=== PATIENT | female | born 1965 | race Caucasian/White ===

== ENCOUNTER 2021-09-29 | Emergency (ER) | payer BC, SELFPAY ==
[2021-09-29] VITALS (7 sets, daily range): BP systolic 116–147; BP diastolic 66–120; PULSE 58–79; RESP 16–20; TEMP 36.4; O2SAT 96–98; BMI 33.5
--- NOTE | 2021-09-29 00:43 | CRLHL7_ITS ---
For Patients: As a result of the Century Cures Act, medical imaging exams and procedure reports are released immediately into your electronic medical record. You may view this report before your referring provider. If you have questions, please contact your health care provider. INDICATION: Chest pain TECHNIQUE: Chest 2 views. COMPARISON: None FINDINGS: Cardiovascular and mediastinum: Heart size and vasculature are normal in caliber and appearance. Mediastinum is within normal limits. Lungs and pleural spaces: Lungs are clear. No sign of infiltrate or mass. No sign of pleural effusion. No pneumothorax. Bones and soft tissues: No significant findings. IMPRESSION: No sign of acute disease. Dictated by Jina Bower MD @ 09/29/2021 2:10:33 AM (Electronically Signed)
--- NOTE | 2021-09-29 00:48 | ED_ITS ---
HPI - Chest Pain General Chief Complaint: Chest Pain Stated Complaint: Chest Pain Time Seen by Provider: 09/29/21 00:26 Source: patient Mode of arrival: ambulatory Limitations: no limitations History of Present Illness HPI narrative: Dense with significant other with chest pain and dizziness that started approximately 2 hours prior to arrival. Pain is dull, achy and intermittent. It is accompanied by a feeling of rapid heart rate. She has a known history of frequent PVCs has had multiple Holter monitors performed in the past as well as stress echo. Her last Holter monitor shows that she had multiple PVCs but also runs of supraventricular tachycardia. She states that her speech assistant has previously prescribed sotalol to help with the PVCs and rapid heart rate but she did not tolerate this due to depression. She states that she was then prescribed a different medication which caused prolonging of something, I assume that this was long QT. she does take nortriptyline and quetiapine and therefore would be at risk of this condition. She speech assistant has ultimately decided to pursue an ablation. She was working towards this when she started having increased pulmonary symptoms. The pulmonology workup led to a bronchoscopy a few days ago which ultimately showed sarcoidosis. She is scheduled to start prednisone for the sarcoidosis soon and the speech assistant has recommended that they hold off on the ablation until they can be sure that there is not cardiac sarcoidosis as well. She states that they have recommended that she have a cardiac MRI but is still waiting on the date of scheduling this as she only found out about the sarcoidosis yesterday. There is no syncope. There is no dyspnea today. She does have asthma and is on Dulera for this. Has not been using her rescue inhaler today. Been breathless spells intermittently for the past 3 years so this is not new for her. She states that her last stress test was just last year and was reported that this was normal. [place] and she cannot pull those records up for me today. She states that tonight has not been out of character for her. Her chest pain started when she was at rest watching TV. The COVID booster earlier today and had 1 vodka popsicle tonight. Denies any other substance ingestion, no other recent changes to her medications. She does not feel like there were any complications from the [facility] hoscopy and she is not having any hemoptysis. She states that her past medical history is notable for headaches, frequent PVCs, mitral valve regurgitation, asthma and depression. Her surgical history is notable for cholecystectomy and prior tennis elbow surgery. She states she has 2 drinks per week and is a former smoker. No other pertinent travel. ROS is notable for the generalized and cardiac symptoms as above, otherwise denies times 12 systems. Related Data Home Medications Medication Instructions Recorded Confirmed mometasone-formoterol HFA 50 mcg-5 2 inh inhalation BID 09/29/21 09/29/21 mcg/actuation aerosol inhaler (Dulera) nortriptyline 10 mg capsule 20 mg PO DAILY 09/29/21 09/29/21 quetiapine 25 mg tablet 25 mg PO DAILY 09/29/21 09/29/21 Allergies Allergy/AdvReac Type Severity Reaction Status Date / Time Sulfa (Sulfonamide Allergy Nausea Verified 09/29/21 00:22 Antibiotics) [facility] Social History Smoking Status: Never smoker Do you use any of these nicotine containing products: None Second hand tobacco smoke exposure: No How often do you have a drink containing alcohol: never How often do you have six or more drinks on one occasion: Never AUDIT-C Alcohol total score: 0 Non-prescribed substance use: denies use Exam Const Vital Signs, click to edit/add: Vital Signs - 24 hr 09/29/21 00:13 Temperature 97.6 F Pulse Rate [Left Pulse Oximeter] 79 Respiratory Rate 20 Blood Pressure [Left Upper Arm] 141/94 H Pulse Oximetry 96 Oxygen Delivery Method Room Air Documenting provider has reviewed patient's vital signs: yes Common normals: no apparent distress General appearance: cooperative [facility] Common normals: normocephalic Head and scalp: normocephalic Mouth: oral and palatal mucosa normal Throat: posterior oropharynx normal Eye Common normals: PERRL and conjunctivae normal General eye: normal appearance of both eyes Conjunctiva: conjunctiva(e) normal Pupil: PERRL Neck & C-Spine Common normals: full ROM, no lymphadenopathy and thyroid normal Thyroid: thyroid normal Resp Common normals: normal respiratory effort Effort & inspection: able to speak in complete sentences Other: Mild expiratory wheeze with faint crackle in the right base posteriorly only. Cardio Common normals: regular rate and regular rhythm Rate: regular rate Rhythm: regular rhythm Other: My auscultation. In triage she did have a run of SVT which we were not able to catch on EKG, only lasting a few seconds. We did catch it on a rhythm strip. She does have a mid systolic click consistent with known history of mitral valve regurgitation GI Common normals: Normal to inspection, nondistended, normoactive bowel sounds present and no hepatosplenomegaly Palpation: no hepatosplenomegaly Extremity Common normals: no pedal edema Neuro Motor exam: no tremor noted and no movement abnormalities noted Psych Attitude: calm and engaged Activity/motor behavior: appropriate eye contact Insight: insight good Judgement: judgment good Skin Common normals: no rashes or lesions noted General skin exam: no rashes or lesions noted Course Course Hospital Course: EKG performed, per my interpretation, frequent PVCs. Rhythm strip did clearly show SVT but we did not catch this on the 12 lead. There are no ischemic changes or ST abnormalities. Counseled patient on my findings. Recommended studies as ordered below. Trial of diltiazem to see if this reduces her symptoms. Chest x-ray to ensure that there were no complications from the bronchoscopy. Differential diagnosis including acute coronary syndrome, arrhythmia, pneumothorax, heart failure, pneumonia, toxic ingestion. Seeing as we were able to catch the SVT episode which did correlate with the dizziness he was describing, I suspect that SVT is the etiology of her symptoms. Reevaluation(s) Reevaluation #1: Patient informed of findings. Per my interpretation, the chest x-ray has a bit of fluid in the horizontal fissures but is not appreciated by the radiology team. Certainly no infiltrates or signs of acute congestive heart failure. Laboratory studies are thoroughly reviewed. Mildly low potassium noted which is not thought to be the cause of her symptoms but is replaced with 40 mEq of oral potassium none the less. Her heart rate has improved markedly with the diltiazem and her symptoms have abated. We discuss using the diltiazem p.r.n. for increased dizziness and supraventricular tachycardia. This up to 4 times daily. If we find that she is needing this most days, then I would recommend she start the extended release version. She should make a followup with her primary care provider in 1 week discuss the possibility of doing this if needed. Alarm symptoms to come back to the emergency department reviewed, please see discharge instructions. Repeat troponin is again negative also. Vital Signs Vital signs: Initial Vital Signs Temperature 97.6 F 09/29/21 00:13 Temperature Source Temporal Artery Scan 09/29/21 00:13 Pulse Rate 79 09/29/21 00:13 Respiratory Rate 20 09/29/21 00:13 Blood Pressure 141/94 H 09/29/21 00:13 Blood Pressure Mean 109 09/29/21 00:13 Blood Pressure Position Supine 09/29/21 00:13 Pulse Oximetry 96 09/29/21 00:13 Oxygen Delivery Method 09/29/21 00:13 Vital Signs Temperature 97.6 F 09/29/21 00:13 Pulse Rate 79 09/29/21 00:13 Respiratory Rate 20 09/29/21 00:13 Blood Pressure 141/94 H 09/29/21 00:13 Pulse Oximetry 96 09/29/21 00:13 Oxygen Delivery Method 09/29/21 00:13 Temperature 97.6 F 09/29/21 00:13 Pulse Rate 79 09/29/21 00:13 Respiratory Rate 20 09/29/21 00:13 Blood Pressure 141/94 H 09/29/21 00:13 Pulse Oximetry 96 09/29/21 00:13 Oxygen Delivery Method 09/29/21 00:13 MDM - Chest Pain Lab Data Labs: Lab Results 09/29/21 09/29/21 09/29/21 Range/Units 00:35 00:35 00:35 WBC 8.19 (4.50-11.00) K/uL RBC 4.77 (4.00-5.20) m/uL Hgb 12.9 (12.0-16.0) gm/dL Hct 39.6 (33.0-51.0) % MCV 83 (80-100) fL MCH 27 (26-34) pg MCHC 33 (32-36) gm/dL RDW Coeff of Cordelia 14.6 (11.5-15.5) % Plt Count 195 (140-440) K/uL Neut % (Auto) 78.0 H (42.0-72.0) % Lymph % (Auto) 8.1 L (20-44) % [place] % (Auto) 11.1 H (0.0-11.0) % Eos % (Auto) 2.1 (0.0-7.0) % Baso % (Auto) 0.2 (0.0-3.0) % Neut # (Auto) 6.40 (1.7-7.0) K/uL Lymph # (Auto) 0.70 L (0.90-2.90) K/uL [place] # (Auto) 0.90 (0.00-0.90) K/UL Eos # (Auto) 0.17 (0.00-0.50) K/uL Baso # (Auto) 0.02 (0.00-0.30) K/uL Abs Immat Gran (auto) 0.04 (0.00-0.30) K/uL Sodium 141 (135-149) mmol/L Potassium 3.3 L (3.6-5.1) mmol/L Chloride 107 (96-114) mmol/L Carbon Dioxide 28 (20-32) mmol/L BUN 17 (7-30) mg/dL Creatinine 0.9 (0.5-1.5) mg/dL Estimated Creat Clear 68.73 Estimated GFR 74 ml/min Glucose 100 (60-115) mg/dL Calcium 9.0 (8.4-10.6) mg/dL NT-Pro-B Natriuret Pep 275 H (0-125) PG/mL TSH 2.520 (0.270-4.20) uIU/mL POC Troponin I (0.01-0.04) ng/ml 09/29/21 09/29/21 Range/Units 00:42 02:10 WBC (4.50-11.00) K/uL RBC (4.00-5.20) m/uL Hgb (12.0-16.0) gm/dL Hct (33.0-51.0) % MCV (80-100) fL MCH (26-34) pg MCHC (32-36) gm/dL RDW Coeff of Cordelia (11.5-15.5) % Plt Count (140-440) K/uL Neut % (Auto) (42.0-72.0) % Lymph % (Auto) (20-44) % [place] % (Auto) (0.0-11.0) % Eos % (Auto) (0.0-7.0) % Baso % (Auto) (0.0-3.0) % Neut # (Auto) (1.7-7.0) K/uL Lymph # (Auto) (0.90-2.90) K/uL [place] # (Auto) (0.00-0.90) K/UL Eos # (Auto) (0.00-0.50) K/uL Baso # (Auto) (0.00-0.30) K/uL Abs Immat Gran (auto) (0.00-0.30) K/uL Sodium (135-149) mmol/L Potassium (3.6-5.1) mmol/L Chloride (96-114) mmol/L Carbon Dioxide (20-32) mmol/L BUN (7-30) mg/dL Creatinine (0.5-1.5) mg/dL Estimated Creat Clear Estimated GFR ml/min Glucose (60-115) mg/dL Calcium (8.4-10.6) mg/dL NT-Pro-B Natriuret Pep (0-125) PG/mL TSH (0.270-4.20) uIU/mL POC Troponin I 0.00 L 0.00 L (0.01-0.04) ng/ml Discharge Plan Discharge Clinical Impression: Nonsustained paroxysmal supraventricular tachycardia Patient Disposition: Home w/ Parent or Adult Condition: Improved Instructions: Supraventricular Tachycardia (ED) Additional Instructions: As we discussed, the episodes that you are having causing your dizziness are an arrhythmia known as supraventricular tachycardia. This is the same brief but abnormal rhythm that was seen on your Holter monitor report as well. Your given a medication called diltiazem, a calcium channel anita that can slow her heart rate slightly. Her episodes here in the emergency department. I know that you and your speech assistant have an extensive plan for long-term management of this co ndition and ultimately, ablation is best. 0 that the new diagnosis of sarcoidosis is going to set back that progress somewhat. In the interim, I have given you a prescription for the diltiazem to use every 6 hours as needed for rapid heart rate. If we find that you are needing this often, meaning every day or especially several times per day. Would recommend your primary care provider start you on a low-dose of an extended release version of this medication. I would like for you to follow-up with her next week to see how things are going, determine how many of the spells you have had and if anything further needs to be done. Please also update your speech assistant on the findings today. Have sustained supraventricular tachycardia, meaning for more than 30 minutes that is not improving with Valsalva maneuvers, come back to the emergency department. Your potassium was also very mildly low at 3.3 today and I would recommend that your primary care provider repeat this at your follow-up visit. Try to eat a banana or potato every day in the interim to help with your potassium. No other changes to your medications. Activity Level: Activity as Tolerated Discharge Diet: Regular Prescriptions: No Action nortriptyline 10 mg capsule 20 mg PO DAILY quetiapine 25 mg tablet 25 mg PO DAILY Dulera 50-5 mcg/actuation HFA aerosol inhaler 2 inh inhalation BID Stand Alone Forms: [place] Info Instructions
[2021-09-29 00:51] LABS: Basophils Absolute Auto 0.02 K/uL (0.00-0.30); Basophils Percent Auto 0.2 % (0.0-3.0); Eosinophils Absolute Auto 0.17 K/uL (0.00-0.50); Eosinophils Percent Auto 2.1 % (0.0-7.0); Hematocrit 39.6 % (33.0-51.0); Hemoglobin* 12.9 gm/dL (12.0-16.0); Immature Granulocytes Abs Auto 0.04 K/uL (0.00-0.30); Lymphocytes Percent Auto 8.1 % (20-44); Mean Corpuscular HGB Conc 33 gm/dL (32-36); Mean Corpuscular Hemoglobin 27 pg (26-34); Mean Corpuscular Volume 83 fL (80-100); Monocytes Percent Auto 11.1 % (0.0-11.0); Platelet Count* 195 K/uL (140-440); RDW Coefficient of Variation % 14.6 % (11.5-15.5); Red Blood Count 4.77 m/uL (4.00-5.20); White Blood Count* 8.19 K/uL (4.50-11.00)
[2021-09-29 00:52] LABS: Slide Review Reflex No
[2021-09-29] MEDS: dilTIAZem 30 MG TABLET PO (01:04)
[2021-09-29] MEDS: ASPIRIN 81 MG TAB.CHEW 162 MG PO (01:04)
[2021-09-29 01:21] LABS: Chloride* 107 mmol/L (96-114); Sodium* 141 mmol/L (135-149)
[2021-09-29 01:22] LABS: Potassium* 3.3 mmol/L (3.6-5.1)
[2021-09-29 01:24] LABS: Creatinine* 0.9 mg/dL (0.5-1.5); Est. Creatinine Clearance* 68.73; Estimated Glomerular Filt Rate 74 ml/min
[2021-09-29 01:25] LABS: Blood Urea Nitrogen* 17 mg/dL (7-30); Carbon Dioxide* 28 mmol/L (20-32); Glucose* 100 mg/dL (60-115)
[2021-09-29 01:34] LABS: NT Pro B Type NatriureticPept* 275 PG/mL (0-125)
[2021-09-29] MEDS: POTASSIUM CHLORIDE 10 MEQ CAPSULE ER 40 MEQ PO (01:59)
--- NOTE | 2021-09-29 02:32 | ED.NURSE ---
second trop 0.00
--- NOTE | 2021-09-29 03:24 | ED.NURSE ---
two trops done, both 0.00
== END 2021-09-29 03:00 | disposition home or self-care (01) ==
PROVIDERS: Emergency Provider Family Medicine; PCP Physician Assistant Medical
DX: I47.1 Supraventricular tachycardia (principal)
CPT/HCPCS: 36415; 71046; 80048; 83880; 84443; 84484; 85025; 93005; 99284; 99285; A9270

== ENCOUNTER 2021-11-17 23:24 | Outpatient (CLI) | payer BC, SELFPAY ==
--- OUTSIDE RECORDS SUMMARY | 2021-12-21 12:15 | XMS_ITS | Encounter Summary ---
:1965 Author Organization [facility] Address [address] [place] [address] Care Team Providers Name Role Phone Unavailable Primary Care Provider Unavailable Reason for Referral Outpatient (Routine) - Authorized Specialty Diagnoses / Procedures Referred By Contact Refer red To Contact Diagnoses Sarcoidosis Durga García M.D. [facility] Procedures ECG Heart rhythm monitor (Holter) [address] [place], [place] [address] Referral ID Status Reason Start Date Expiration Date Visits V isits Requested Authorized [id number] Authorized 11/21/2021 11/21/2022 1 1 Reason for Visit Outpatient (Routine) - Authorized Specialty Diagnoses / Procedures Referred By Contact Refer red To Contact Diagnoses Sarcoidosis Durga García M.D. [facility] Procedures ECG Heart rhythm monitor (Holter) [address] [place], [place] [phone] Referral ID Status Reason Start Date Expiration Date Visits V isits Requested Authorized [id number] Authorized 11/21/2021 11/21/2022 1 1 Encounter Details Date Type Department Care Team Description 11/21/2021 Hospital Encounter Department of Durga García M .D. Sarcoidosis Cardiovascular Diseases in [address] [place], [place] [address] [facility] [address] [place] [address] Social History Tobacco Use Types Packs/Day Years Used Date Smoking Tobacco: Former Cigarettes 10 Quit : 2005 Smokeless Tobacco: Never Alcohol Habits Answer Date Recorded How often do you have a drink containing alcohol? 2-4 times a month 11/23/2021 How many drinks containing alcohol do you have on a 1 or 2 11/23/2021 typical day when you are drinking? How often do you have six or more drinks on one Never 11/23/2021 occasion? Social Isolation Answer Date Recorded In a typical week, how many times do you Twice a week 11/23/2021 talk on the phone with family, friends, or neighbors? How often do you get together with friends Once a week 11/23/2021 or relatives? How often do you attend scientologist or lutheran More than 4 time s per year 11/23/2021 services? Do you belong to any clubs or organizations Yes 11/23/2021 such as scientologist groups, unions, fraternal or athletic groups, or school groups? How often do you attend meetings of the More than 4 times pe r year 11/23/2021 clubs or organizations you belong to? Are you now , , , 11/23/2021 , never or living with a partner? Physical Activity Answer Date Recorded On average, how many days per week do you engage in moderate to 1 day 11/23/2021 strenuous exercise (like walking fast, running, jogging, dancing, swimming, biking, or other activities that cause a light or heavy sweat)? On average, how many minutes do you engage in exercise at th is 20 min 11/23/2021 level? Stress Answer Date Recorded Do you feel stress - tense, restless, nervous, or Only a lit tle 11/23/2021 anxious, or unable to sleep at night because your mind is troubled all the time - these days? Financial Resource Strain Answer Date Recorded How hard is it for you to pay for the very basics like Not h david at all 11/23/2021 food, housing, medical care, and heating? Intimate Partner Violence Answer Date Recorded Within the last year, have you been afraid of your partner o r No 11/23/2021 ex-partner? Within the last year, have you been humiliated or emotionall y No 11/23/2021 abused in other ways by your partner or ex-partner? Within the last year, have you been kicked, hit, slapped, or No 11/23/2021 otherwise physically hurt by your partner or ex-partner? Within the last year, have you been raped or forced to have any No 11/23/2021 kind of sexual activity by your partner or ex-partner? Food Insecurity Answer Date Recorded Within the past 12 months, you worried that your food would Never true 11/23/2021 run out before you got money to buy more. Within the past 12 months, the food you bought just didn't N ever true 11/23/2021 last and you didn't have money to get more. Transportation Needs Answer Date Recorded In the past 12 months, has lack of transportation kept you f rom No 11/23/2021 medical appointments or from getting medications? In the past 12 months, has lack of transportation kept you f rom No 11/23/2021 meetings, work, or getting things needed for daily living? Housing Stability Answer Date Recorded In the last 12 months, was there a time when you were not ab le No 11/23/2021 to pay the mortgage or rent on time? In the last 12 months, how many places have you lived? 1 11/23/2021 In the last 12 months, was there a time when you did not hav e a No 11/23/[address] or slept in a correction (including now)? Sex Assigned at Date Recorded Female 11/22/2021 11:24 PM CDT documented as of this encounter Medications at Time of Discharge Medication Sig Dispensed Refills Start Date End Date albuterol 90 mcg/actuation 0 inhaler clobetasoL (TEMOVATE) 0.05 Apply topically. 0 07/2020 % ointment mometasone-formoterol Inhale 2 puffs 2 0 09/10/19 22 (Dulera) 200-5 (two) times a day. mcg/actuation inhaler nortriptyline (PAMELOR) 10 Take 20 mg by mouth. 0 05/22/2021 mg capsule omeprazole (PriLOSEC) 20 mg Take 20 mg by mouth [address] capsule every morning before breakfast. QUEtiapine (SEROquel) 25 mg Take 25 mg by mouth. 0 05/22/2021 tablet documented as of this encounter Plan of Treatment Upcoming Encounters Date Type Specialty Care Team Description 02/15/2022 Comprehensive Visit Cardiovascular Disease Ammon Nolan, JESSIKA, C.N.P. [address] [place] [address] (Wo rk) documented as of this encounter Procedures Procedure Name Priority Date/Time Associated Diagnosis Comme nts HOLTER MONITOR - IN Routine 11/22/2021 1:27 PM Sarcoidosis Re sults for this CLINIC CONTRACTING EXECUTIVE CDT procedure are in the results section. documented in this encounter Results HOLTER MONITOR - IN CLINIC CONTRACTING EXECUTIVE (11/22/2021 1:27 PM CDT) P athologist Signature Min Heart Rate 57 bpm [facility] Max Heart Rate 117 bpm [facility] Mean Heart 80 bpm [facility] Rate VE Total Beats 5611 count [facility] VE Percent 5 percent [facility] Beats SVE Total 1620 count [facility] Beats SVE Percent 2 percent [facility] Beats AF Count 0 count [facility] AF Duration 0 duration [facility] AF Maurice 0 percent [facility] Symptom Count 1 count [facility] Specimen (Source) Anatomical Collection Method Collection Time Re ceived Time Location / / Volume Laterality 11/21/2021 9:00 AM CDT Narrative [facility] - 11/22/2021 3:26 PM CDT 1. The basic rhythm was sinus. Rare junctional escape complexes were seen following ventricular ectop y. The total analyzed time was 21h 41m. The heart rate varied from 57 to 117 bpm. The average HR was 80 bpm. 2. Premature ventricular complexes were seen singly, in pairs and in trigeminal patterns. There were 5611 PVCs recorded with a PVC burden of 5%. 3. Premature supraventricular complexes were seen singly, in pairs, in bigeminal patterns and in three 4-6 beat atrial runs for a maximum heart rate of 156 bpm. There were 1620 PACs recorded with a PAC burden of 2%. 4. A total of 1 symptomatic event was no caty. The rhythm was sinus, heart rate of 94 bpm. ??Single SVPCs and VPCs were noted. Generator Rebuilder: Josy Cano Fellow: Eliu Prather Procedure Note Joey Campos M.D., Ph.D. - 11/23/19 22 1. The basic rhythm was sinus. Rare junc tional escape complexes were seen following ventricular ectopy. The total analyzed time was 21h 41m. The heart rate varied from 57 to 117 bpm. The average HR was 80 bpm. 2. Premature ventricular complexes were seen singly, in pairs and in trigeminal patterns. There were 5611 PVCs recorded with a PVC burden of 5%. 3. Premature supraventricular complexes were seen singly, in pairs, in bigeminal patterns and in three 4-6 beat atrial runs for a maximum heart rate of 156 bpm. There were 1620 PACs recorded with a PAC burden of 2%. 4. A total of 1 symptomatic event was no caty. The rhythm was sinus, heart rate of 94 bpm. Single SVPCs and VPCs were noted. Generator Rebuilder: Josy Cano Fellow: Eliu Prather Durga García M.D. [facility] PROCEDUR ES Performing Organization Address City/State/ZIP Code Phon e Number [facility] NA documented in this encounter Visit Diagnoses Diagnosis Sarcoidosis Sarcoid Myocarditis (HCC) - Primary documented in this encounter
--- OUTSIDE RECORDS SUMMARY | 2021-12-21 12:15 | XMS_ITS | Encounter Summary ---
:1965 Author Organization [facility] Address [address] [place] [address] Care Team Providers Name Role Phone Unavailable Primary Care Provider Unavailable Encounter Details Date Type Department Care Team Description 12/20/2021 Clinical Communication Department of Neisha Nolan, Cardiovascular Medicine MANAGER OF WAREHOUSE, C. N.P. in [facility] [address] [facility] [address] [place] [phone] Social History Tobacco Use Types Packs/Day Years Used Date Smoking Tobacco: Former Cigarettes 10 Quit : 2004 Smokeless Tobacco: Never Alcohol Habits Answer Date [...] or relatives? How often do you attend muslim or roman catholic More than 4 time s per year 11/23/2021 services? Do you belong to any clubs or organizations Yes 11/23/2021 such as muslim groups, unions, fraternal or athletic groups, or [...] place to sleep or slept in a usp (including now)? Education Answer Date Recorded What is the highest level of school Master's degree (e.g., M A, MS, 11/22/2021 you have completed or the highest Arti, MEd, ACCOUNTING SYSTEM EXPERT, GALA) degree you have received? Sex Assigned at Date Recorded Female 11/22/2021 11:24 PM CDT documented as of this encounter Miscellaneous Notes Telephone Encounter - Angi Mann - 12/20/2021 1:07 PM CDT SUBJECTIVE CHIEF COMPLAINT / REASON FOR CALL Order/outside record request Good afternoonGhada placed additional orders that need scheduling prior to January consult with Neisha Urrutia requests that you obtain the following records from [email or web address] -All cardiology records including images -Pathology sample (tissue) -Bronchoscopy Thanks! documented in this encounter Plan of Treatment Upcoming Encounters Date Type Specialty Care Team Description 02/15/2022 Comprehensive Visit Cardiovascular Disease Ammon Nolan, JESSIKA, C.N.P. [address] [place] [address] (Wo rk) documented as of this encounter Visit Diagnoses Not on filedocumented in this encounter
--- OUTSIDE RECORDS SUMMARY | 2021-12-21 12:15 | XMS_ITS | Clinical Summary ---
:1965 Author Organization [facility] Address [address] [place] [id number] Care Team Providers Name Role Phone Unavailable Primary Care Provider Unavailable Source Comments Patient records contain information from all sites at [facility]. For routine questions regarding patient records, call [phone] during business hours, M-F 8:00 AM - 5:00 PM Central Time. Record requests for emergency care only can be directed to [phone] at any time.[facility] Allergies Active Allergy Reactions Severity Noted Date Comments Sulfa (Sulfonamide Antibiotics) Nausea And Vomiting Medications Medication Sig Dispensed Refills Start Date End Date Status albuterol 90 0 12/13/2020 Active mcg/actuation inhaler clobetasoL (TEMOVATE) Apply topically. 0 01/30/2021 Active 0.05 % ointment mometasone-formoterol Inhale 2 puffs 2 0 09/09/2021 Active (Dulera) 200-5 (two) times a mcg/actuation inhaler day. nortriptyline (PAMELOR) Take 20 mg by 0 05/22/2021 Active 10 mg capsule mouth. QUEtiapine (SEROquel) Take 25 mg by 0 05/22/2021 Active 25 mg tablet mouth. omeprazole (PriLOSEC) Take 20 mg by [address] capsule mouth every morning before breakfast. Active Problems Problem Noted Date Sarcoidosis 11/21/2021 Lung Interstitial Disease 11/21/2021 Encounters Date Type Specialty Care Team Description 12/20/2021 Clinical Cardiovascular Neisha Nolan Communication Disease L, RELOCATION COMMISSIONER, C.N.P. 11/24/2021 Virtual Visit Pulmonary Medicine Durga García Sarcoido sis M.D. (Primary Dx) 11/23/2021 Hospital Encounter Radiology Durga García, Lung Inte rstitial M.D. Disease (HCC) 11/23/2021 Hospital Encounter Cardiovascular Durga García Simeon, Sarcoid osis Disease M.D. 11/21/2021 Hospital Encounter Laboratory Medicine Durga García, rcoidosis M.D. 11/21/2021 Hospital Encounter Cardiovascular Durga García, Sarcoid osis Disease M.D. 11/21/2021 Ancillary Procedure Radiology Durga García, Sarcoido sis M.D. 11/21/2021 Comprehensive Visit Pulmonary Medicine Durga García, rcoidosis; M.D. Lung Interstiti al Disease (HCC) 11/20/2021 Clinical Admitting/Central Previsit Communication Scheduling Preparation from Last 3 Months Social History Tobacco Use Types Packs/Day Years Used Date Smoking Tobacco: Former Cigarettes 10 Quit : 2004 Smokeless Tobacco: Never Tobacco Cessation: Counseling Given: Not Answered Alcohol Habits Answer Date Recorded How often [...] or relatives? How often do you attend temple or gnosticism More than 4 time s per year 11/23/2021 services? Do you belong to any clubs or organizations Yes 11/23/2021 such as temple groups, unions, fraternal or athletic groups, or [...] place to sleep or slept in a long term (including now)? Education Answer Date Recorded What is the highest level of school Master's degree (e.g., M A, MS, 11/22/2021 you have completed or the highest Arti, MEd, ILLUMINATOR, GALA) degree you have received? Sex Assigned at Date Recorded Female 11/22/2021 11:24 PM CDT Last Filed Vital Signs Vital Sign Reading Time Taken Comments Blood Pressure 141/86 11/21/2021 7:47 AM CDT Pulse 99 11/21/2021 7:47 AM CDT Temperature 35.1 ??C (95.2 ??F) 11/21/2021 7:47 AM CDT Respiratory Rate - - Oxygen Saturation 97% 11/21/2021 7:47 AM CDT Inhaled Oxygen Concentration - - Weight 109 kg (239 lb 3.2 oz) 11/21/2021 7:47 AM CDT Height 172.1 cm (5' 7.76) 11/21/2021 7:47 AM CDT Body Mass Index 36.63 11/21/2021 7:47 AM CDT Plan of Treatment Upcoming Encounters Date Type Specialty Care Team Description 02/15/2022 Comprehensive Visit Cardiovascular Disease Ammon Nolan, RELOCATION COMMISSIONER, C.N.P. [address] [place] [address] (Wo rk) Health Maintenance Due Date Last Done Comments CT Colonography 1965 Cervical Cancer Screening 1965 Cologuard 1965 Colonoscopy 1965 Colorectal Cancer Screening 1965 FIT 1965 HIV Screening 1965 Hepatitis B Vaccines (1 of 3 - 1965 3-dose series) Hepatitis C Screening 1965 Mammogram 1965 Pneumococcal vaccine (0-64 years) 1969 (1 - PCV) Zoster Vaccines (1 of 2) 2013 Depression Screening (Annual 02/25/2021 PHQ-2) COVID-19 Vaccine (5 - Booster for 11/23/2021 09/28/2021, , Pfizer series) 06/13/2020, Additional history exists Influenza Vaccine (#1) 2021 04/21/2020 DTaP,Tdap,and Td Vaccines (2 - Td 09/03/2023 09/02/2013 or Tdap) Fasting Glucose for Diabetes 11/21/2024 11/21/2021 Screening Lipid (Cholesterol) Screening 05/22/2026 05/22/2021 Procedures Procedure Name Priority Date/Time Associated Comments Diagnosis CT CHEST WITHOUT IV RAD - Routine 11/23/2021 2:51 Lung Interstitial Results for CONTRAST (most inpatients PM CDT Disease (HCC) this proce dure and all are in the outpatients) results section. (TTE) 2D ECHO DOPPLER Routine 11/23/2021 1:47 Sarcoidosis Res ults for COLOR AND CONTRAST PM CDT this proc edure are in the results section. HOLTER MONITOR - IN Routine 11/22/2021 1:27 Sarcoidosis Resul ts for CLINIC TRAIN DRIVER PM CDT this procedur e are in the results section. ECG Routine 11/22/2021 Sarcoidosis Results for 11:50 AM CDT this procedure are in the results section. PULMONARY FUNCTION Routine 11/22/2021 9:16 Sarcoidosis Result s for TESTS AM CDT this procedure are in the results section. THYROID FUNCTION Routine 11/21/2021 Sarcoidosis Results for CASCADE, S 10:02 AM CDT this procedure are in the results section. NT-PRO B-TYPE Routine 11/21/2021 Sarcoidosis Results for NATRIURETIC PEPTIDE 10:02 AM CDT this pro cedure (BNP), S are in the results section. C-REACTIVE PROTEIN Routine 11/21/2021 Sarcoidosis Results f or (CRP), S/P 10:02 AM CDT this procedure are in the results section. COMPREHENSIVE Routine 11/21/2021 Sarcoidosis Results for METABOLIC PANEL, S/P 10:02 AM CDT this pr ocedure are in the results section. CBC WITH Routine 11/21/2021 Sarcoidosis Results for DIFFERENTIAL, B 10:02 AM CDT this procedu re are in the results section. ANGIOTENSIN Routine 11/21/2021 Sarcoidosis Results for CONVERTING ENZYME, S 10:02 AM CDT this pr ocedure are in the results section. INTERPRETATION OF RAD - Routine 11/21/2021 8:37 Sarcoidosis Result s for OUTSIDE MR CARDIAC (most inpatients AM CDT this procedure and all are in the outpatients) results section. OUTSIDE MR BODY Routine 10/12/2021 8:15 Results f or AM CDT this procedure are in the results section. OUTSIDE ENDOSCOPY Routine 09/25/2021 3:05 Results for PM CDT this procedure are in the results section. from Last [address] Chest without IV Contrast (11/23/2021 2:51 PM CDT) Anatomical Region Laterality Modality Chest, Thoracic RST LOS, Thoracic ARZ N/A Co mputed Tomography, Computed LOS, Thoracic FLA LOS Tomography Specimen (Source) Anatomical Collection Method Collection Time Re ceived Time Location / / Volume Laterality 11/23/2021 3:33 PM CDT Impressions 11/23/2021 3:54 PM CDT 1. Multiple prominent borderline sized mediastinal and hilar lymph nodes compatible with sarcoidosis. The adenopathy has not sign ificantly changed since the prior outside exam. 2. Patchy bilateral areas of lung nodula rity in a somewhat perihilar distribution consistent with pulmonary parenchymal involvement by darvin coidosis, unchanged. Narrative 11/23/2021 3:54 PM CDT EXAM: CT CHEST WITHOUT IV CONTRAST COMPARISON: Outside chest CT 08/24/2021. FINDINGS: There are patchy bilateral small nodules and conglomerate nodular opacities in a somewhat perihilar and peribronchovascular distribution com patible with pulmonary parenchymal involvement by sarcoidosis. The lung nodularity has not significantly changed since the prior exam. No new areas of involvement. Multiple prominent and borderline sized mediastinal and hilar lymph nodes. Small supraclavicular lymph nodes and mildly prominent right r etroperitoneal lymph nodes. The lymphadenopathy has not significantly changed compared with the prior outside exam. The adenopathy causes narrowing or occlusion of bronchi in the right lower lobe and lateral segment of the right middle lobe. Interlobular septal thickening in the ri ght lower lobe on the prior exam has improved. Persistent bands of atelectasis in the basal segmen ts of the lower lobes. No pleural effusions. Prominent mitral valve annulus calcifica tion. Probable small cyst or hemangioma in the liver. Cholecystectomy. Procedure Note Wade Robles M.D. - 11/23/2021Formatt ing of this note might be different from the original. EXAM: CT CHEST WITHOUT IV CONTRAST COMPARISON: Outside chest CT 08/24/2021. FINDINGS: There are patchy bilateral small nodules and conglomerate nodular opacities in a somewhat perihilar and peribronchovascular distribution com patible with pulmonary parenchymal involvement by sarcoidosis. The lung nodularity has not significantly changed since the prior exam. No new areas of involvement. Multiple prominent and borderline sized mediastinal and hilar lymph nodes. Small supraclavicular lymph nodes and mildly prominent right r etroperitoneal lymph nodes. The lymphadenopathy has not significantly changed compared with the prior outside exam. The adenopathy causes narrowing or occlusion of bronchi in the right lower lobe and lateral segment of the right middle lobe. Interlobular septal thickening in the ri ght lower lobe on the prior exam has improved. Persistent bands of atelectasis in the basal segmen ts of the lower lobes. No pleural effusions. Prominent mitral valve annulus calcifica tion. Probable small cyst or hemangioma in the liver. Cholecystectomy. IMPRESSION: 1. Multiple prominent borderline sized m ediastinal and hilar lymph nodes compatible with sarcoidosis. The adenopathy has not sign ificantly changed since the prior outside exam. 2. Patchy bilateral areas of lung nodula rity in a somewhat perihilar distribution consistent with pulmonary parenchymal involvement by darvin coidosis, unchanged. Durga García M.D. IMRy CT PROCEDURES (TTE) 2D ECHO DOPPLER COLOR AND CONTRAST (11/23/2021 1:47 PM CDT) Analysis Performed At Patho logist Time Signature Ejection Fraction 59 MC CV EIMS Sinus of Valsalva 41 MC CV EIMS Mid-Ascending 42 MC CV EIMS Aorta Wall Motion Score 1.13 MC CV EIMS Index MV E Velocity 0.50 MC CV EIMS MV A Velocity 0.90 MC CV EIMS MV E/A 0.56 MC CV EIMS MV e' Velocity 0.08 MC CV EIMS Medial MV e' Velocity 0.08 MC CV EIMS Lateral MV E/e' Medial 6.30 MC CV EIMS MV E/e' Lateral 6.30 MC CV EIMS Left ventricular 39 MC CV EIMS stroke volume index Cardiac Output 5.98 MC CV EIMS Cardiac Index 2.72 MC CV EIMS Tricuspid Annular 0.13 MC CV EIMS S? RA Pressure 5 MC CV EIMS AV mean gradient 4 MC CV EIMS Aortic valve area 3.14 MC CV EIMS Aortic Valve 0.64 MC CV EIMS Dimensionless Index MV mean gradient 2 MC CV EIMS MV regurgitant 48 MC CV EIMS volume LA Volume Index 31 MC CV EIMS Aortic Valve 1.40 MC CV EIMS Systolic Peak Velocity Anatomical Region Laterality Modality Echocardiography Specimen (Source) Anatomical Collection Method Collection Time Re ceived Time Location / / Volume Laterality 11/23/2021 12:29 PM CDT Impressions 11/23/2021 2:34 PM CDT LEFT VENTRICLE:Normal left ventricular chamber size. Calculated 2-D four chamber monoplane volumetric left ventricular ejection fraction 59%. Regional wall motion abnormalities were present (see wall mo tion graphics). Left ventricular strain assessment not performed because of image quality. Indeterminate left ventricular diastolic function. RIGHT VENTRICLE:Normal right ventricular chamber size. Normal right ventricular systolic function. Unable to detect peak tricuspid regurgitation velocity for pulmonary artery systolic pressure calculation. ATRIA:Enlarged left atrial size by visua l estimate. Normal right atrial size. CARDIAC VALVES:Trileaflet aortic valve. Sclerotic aortic valve. Trivial aortic valve regurgitation. Moderately calcified mitral annulus. Thickened mitral valve. Mitral valve posterior leaflet prolapse. Mitral valve diastolic mean Doppler grad ient 2 mmHg (heart rate 74 BPM). Moderate mitral susanna ve regurgitation. Mitral regurgitant volume (PISA) 48 ml. Mitral regurgitation ERO (PISA) 0.22 cm2. Pulmonary valve not well visualized. Normal pulmonary valve systolic velocities. Trivial pulmonary valve regurgitation. Normal tricuspid valve. T rivial tricuspid valve regurgitation. OTHER ECHO FINDINGS:Normal inferior vena cava size with normal inspiratory collapse (>50%). Mildly enlarged sinus of Valsalva diameter of 41 mm. Upper limit of normal of the sinus of Valsalva for age , sex and BSA is 39 mm. Mildly enlarged mid ascending aorta diameter of 42 mm. Upper limit of normal of the mid ascending aorta, for age, sex and BSA is 39 mm. Abdominal aorta incompletely visualized. Normal abdominal aorta Doppler flow pattern. Imaging inadequate for detection of atrial level shunt by color flow imaging. No intracardiac mass or thrombus, but the left atrial appendage cannot be visualized adequately with transthoracic echo to exclude thrombus in this location. No ??pericardial effusio n. Prominent anterior epicardial fat lay er. Attempts were made to optimize the echocardiograp hic images and two or more left ventricular segments were not visualized adequately to evaluate cardiac structure. The patient's current allergies and medications have been screened. Intravenous Lumason ultrasound enhancement agent(s) administered to enh ance endocardial border definition. Imaging enhancement agent administered per Echocardiography Contrast Administration Protocol Reference Document [id number]. Danny hernandez met an inclusion criterion and did not have contraindications in screening sections. For the complete report, see the Order-L evel Documents. Narrative 11/23/2021 2:34 PM CDT For the complete report, see the Order-Level Documents. Hemodynamics Heart Rate: 74 BPM Blood Pressure: 145 / 85 mmHg ECG: Sinus rhythm Final Impressions 1. Normal left ventricular chamber size, regional wall motion abnormalities were present (see wall motion graphics), calculated 2-D four chamber monoplane volumetric ejection fraction 59%. 2. Normal right ventricular chamber size , normal systolic function, unable to detect peak tricuspid regurgitation velocity for pulmonary artery systolic pressure calculation. 3. Mitral valve posterior leaflet prolap se. Moderate mitral valve regurgitation. ??Regurgitant volume (PISA) 48 mL, ERO 0.22 cm2. 4. Moderately calcified mitral annulus. ?? Mitral valve mean diastolic gradient 2 mmHg (HR 74 bpm). 5. Mildly enlarged mid ascending aorta d iameter of 42 mm, upper limit of normal for age, sex and BSA is 39 mm. 6. Mildly enlarged sinus of Valsalva anastasiya meter of 41 mm, upper limit of normal for age, sex and BSA is 39 mm. 7. Normal inferior vena cava size with n ormal inspiratory collapse (>50%). 8. No ??pericardial effusion. Procedure Note Rosey Nelson M.D., Ph.D. - 2 For the complete report, see the Order-L evel Documents. Hemodynamics Heart Rate: 74 BPM Blood Pressure: 145 / 85 mmHg ECG: Sinus rhythm Final Impressions 1. Normal left ventricular chamber size, regional wall motion abnormalities were present (see wall motion graphics), calculated 2-D four chamber monoplane volumetric ejection fraction 59%. 2. Normal right ventricular chamber size , normal systolic function, unable to detect peak tricuspid regurgitation velocity for pulmonary artery systolic pressure calculation. 3. Mitral valve posterior leaflet prolap se. Moderate mitral valve regurgitation. Regurgitant volume (PISA) 48 mL, ERO 0.22 cm2. 4. Moderately calcified mitral annulus. Mitral valve mean diastolic gradient 2 mmHg (HR 74 bpm). 5. Mildly enlarged mid ascending aorta d iameter of 42 mm, upper limit of normal for age, sex and BSA is 39 mm. 6. Mildly enlarged sinus of Valsalva anastasiya meter of 41 mm, upper limit of normal for age, sex and BSA is 39 mm. 7. Normal inferior vena cava size with n ormal inspiratory collapse (>50%). 8. No pericardial effusion. Findings LEFT VENTRICLE:Normal left ventricular c hamber size. Calculated 2-D four chamber monoplane volumetric left ventricular ejection fraction 59%. Regional wall motion abnormalities were present (see wall motion graphics). Left ventricular strain asses sment not performed because of image quality. Indeterminate left ventricular diastolic function. RIGHT VENTRICLE:Normal right ventricular chamber size. Normal right ventricular systolic function. Unable to detect peak tricuspid regurgitation velocity for pulmonary artery systolic pressure calculation. ATRIA:Enlarged left atrial size by visua l estimate. Normal right atrial size. CARDIAC VALVES:Trileaflet aortic valve. Sclerotic aortic valve. Trivial aortic valve regurgitation. Moderately calcified mitral annulus. Thickened mitral valve. Mitral valve posterior leaflet prolapse. Mitral valve diastolic mean Doppler gradient 2 mmHg ( heart rate 74 BPM). Moderate mitral valve regurgitation. Mitral regurgitant volume (PISA) 48 ml. Mitral regurgitation ERO (PISA) 0.22 cm2. Pulmonary valve not well visualized. Normal pulmonary valve systolic velociti es. Trivial pulmonary valve regurgitation. Normal tricuspid valve. Trivial tricuspid valve regurgitation. OTHER ECHO FINDINGS:Normal inferior vena cava size with normal inspiratory collapse (>50%). Mildly enlarged sinus of Valsalva diameter of 41 mm. Upper limit of normal of the sinus of Valsalva for age, sex and BSA is 39 mm. Mildly enlarged mid ascending aorta diameter of 42 mm. Upper limit of normal of the mid ascending aorta, for age, sex and BSA is 39 mm. Abdominal aorta incompletely visualized. Normal abdominal aorta Doppler flow pattern. Imaging inadequate for det ection of atrial level shunt by color flow imaging. No intracardiac mass or thrombus, but the left atrial appendage cannot be visualized adequately with transthoracic echo to exclude thrombus in this location. No pe ricardial effusion. Prominent anterior epicardial fat layer. Attempts were made to optimize the echocardiographic images and two or more left ventricular segments were not visualized adequately to evaluate ca rdiac structure. The patient's current allergies and medications have been screened. Intravenous Lumason ultrasound enhancement agent(s) administered to enhance endocardial border definition. Imaging enhancement agent ad ministered per Echocardiography Contrast Administration Protocol Reference Document [id number]. Patient met an inclusion criterion and did not have contraindications in screening sections. For the complete report, see the Order-L evel Documents. Durga García M.D. CV ECHO PROCEDURES HOLTER MONITOR - IN CLINIC TRAIN DRIVER (11/22/2021 1:27 PM CDT) P athologist Signature [...] AF Duration 0 duration INFOBIONIC MOME AF [place] 0 percent INFOBIONIC MOME Symptom Count 1 [...] bpm. ??Single SVPCs and VPCs were noted. Stacker And Sorter Operator: Josy Cano Fellow: Eliu Prather Procedure Note [...] bpm. Single SVPCs and VPCs were noted. Stacker And Sorter Operator: Josy Cano Fellow: Eliu Prather Durga García M.D. CV CARDIAC SERVICES PROCEDUR ES Performing Organization Address [facility] Phon e Number INFOBIONIC MOME INFOBIONIC MOME NA ECG 12 Lead (11/22/2021 11:50 AM CDT) P athologist Signature Ventricular Rate 84 BPM MUSE ECG/Min DC Interval 142 ms MUSE QRSD Interval 86 ms MUSE QT Interval 352 ms MUSE QTC Interval 415 ms MUSE P [place] 53 degrees MUSE R [place] -10 degrees MUSE T Wave [place] 46 degrees MUSE Specimen Anatomical Collection Method Collection Time Receive d Time (Source) Location / / Volume Laterality 11/22/2021 11:50 11/22/2021 AM CDT 12:02 PM CDT Impressions MUSE - 11/22/2021 12:02 PM CDT Normal sinus rhythm Right atrial enlargement Nonspecific T wave abnormality No previous ECGs available Reviewed by ARIANA Wise Narrative This result has an attachment that is no t available. Procedure Note Joey Campos M.D., Ph.D. - 11/23/19 22 IMPRESSION: Normal sinus rhythm Right atrial enlargement Nonspecific T wave abnormality No previous ECGs available Reviewed by ARIANA Wise Durga García M.D. ECG ORDERABLES Performing Organization Address [facility]/ZIP Code Phon e Number MUSE MUSE NA Pulmonary Function Tests (11/22/2021 9:16 AM CDT) Analysis Performed At Patho logist Time Signature VC MAX POST 3.01 L 11/22/2021 [facility] 1:28 PM CDT SUITE PostFVC 3.01 L 11/22/2021 [facility] 1:28 PM CDT SUITE PostFEV1 2.22 L 11/22/2021 [facility] 1:28 PM CDT SUITE FEV1/FVC POST 73.72 % 11/22/2021 [facility] 1:28 PM CDT SUITE FEF 25-75 % 1.62 L/s 11/22/2021 [facility] 1:28 PM CDT SUITE PEF POST 5.80 L/s 11/22/2021 [facility] 1:28 PM CDT SUITE FET POST 7.61 sec 11/22/2021 [facility] 1:28 PM CDT SUITE DLCO SINGLE 18.30 ml/(min*mm 11/22/2021 [facility] BREATH POST Hg) 1:28 PM CDT SUITE DLCOC SINGLE 18.19 ml/(min*mm 11/22/2021 [facility] BREATH POST Hg) 1:28 PM CDT SUITE HB 13.60 g(Hb)/dL 11/22/2021 [facility] 1:28 PM CDT SU[address] VA SINGLE 4.27 L 11/22/2021 [facility] BREATH POST 1:28 PM CDT SUITE TLC POST 4.29 L 11/22/2021 [facility] 1:28 PM CDT SUITE VC POST 3.00 L 11/22/2021 [facility] 1:28 PM CDT SUITE FRCPLETH POST 2.06 L 11/22/2021 [facility] 1:28 PM CDT SUITE RV 1.29 L 11/22/2021 [facility] 1:28 PM CDT SUITE RV % TLC POST 30.07 % 11/22/2021 [facility] 1:28 PM CDT SUITE VC MAX PRE 3.01 L 11/22/2021 [facility] 1:28 PM CDT SUITE FVC 2.88 L 11/22/2021 [facility] 1:28 PM CDT SUITE FEV1 2.18 L 11/22/2021 [facility] 1:28 PM CDT SUITE FEV1/FVC 75.68 % 11/22/2021 [facility] 1:28 PM CDT SUITE APL43-10% 1.72 L/s 11/22/2021 [facility] 1:28 PM CDT SUITE PEF PRE 6.00 L/s 11/22/2021 [facility] 1:28 PM CDT SUITE FET PRE 6.23 sec 11/22/2021 [facility] 1:28 PM CDT SUITE SUBSTANCE POST Albuterol 11/22/2021 [facility] 1:28 PM CDT SUITE DOSE POST 2 Puff 11/22/2021 [facility] 1:28 PM CDT SUITE % PRED VC MAX 83 % % 11/22/2021 [facility] 1:28 PM CDT SUITE FVC% 79 % % 11/22/2021 [facility] 1:28 PM CDT SUITE FEV1% 76 % % 11/22/2021 [facility] 1:28 PM CDT SUITE % PRED 96 % % 11/22/2021 [facility] FEV1/FVC 1:28 PM CDT SUITE % PRED FEF 68 % % 11/22/2021 [facility] 25-75% 1:28 PM CDT SUITE % PRED PEF 96 % % 11/22/2021 [facility] 1:28 PM CDT SUITE PRED TLC 5.82 11/22/2021 [facility] 1:28 PM CDT SUITE PRED RV 1.93 11/22/2021 [facility] 1:28 PM CDT SUITE PRED VC MAX 3.65 11/22/2021 [facility] 1:28 PM CDT SUITE PRED FVC 3.65 11/22/2021 [facility] 1:28 PM CDT SUITE PRED FEV 1 2.86 11/22/2021 [facility] 1:28 PM CDT SUITE PRED FEV1/FVC 79.0 11/22/2021 [facility] 1:28 PM CDT SUITE PRED FEF 2.53 11/22/2021 [facility] 25-75% 1:28 PM CDT SUITE PRED PEF 6.2 11/22/2021 [facility] 1:28 PM CDT SUITE PRED DLCO 23.0 11/22/2021 [facility] 1:28 PM CDT SUITE PRED DLCOc 23.0 11/22/2021 [facility] 1:28 PM CDT SUITE Specimen (Source) Anatomical Collection Method Collection Time Re ceived Time Location / / Volume Laterality 11/22/2021 9:16 AM CDT Impressions [facility] - 11/22/2021 1:28 PM C DT Abnormal. A pulmonary restrictive proces s is indicated by mild reduction in TLC. Normal spirometry and diffusing capacity . There is no acute response to bronchodilator. Narrative This result has an attachment that is no t available. Procedure Note Cholo Alonso M.D. - 11/22/2021Formattin g of this note might be different from the original. IMPRESSION: Abnormal. A pulmonary restrictive proces s is indicated by mild reduction in TLC. Normal spirometry and diffusing capacity. There is no acute response to bronchodilator. Durga García M.D. PFT ORDERABLES Performing Organization Address City/[facility]/ZIP Code Phon e Number [facility] NA Thyroid Function [place] (11/21/2021 10:02 AM CDT) athologist Signature TSH, Sensitive 1.1 0.3 - 4.2 11/21/2021 DTL mIU/L 11:18 AM CDT Specimen Anatomical Collection Method Collection Time Receive d Time (Source) Location / / Volume Laterality Blood (Blood, 11/21/2021 10:02 11/21/2021 Venous) AM CDT 10:46 AM CDT Durga García M.D. LAB BLOOD ADD-ON Performing Organization Address City/State/ZIP Code Phon e Number [facility] - [address] [place], [place] [address] [facility] [place] [address] Laboratories-[facility] [address] NT-Pro B-Type Natriuretic Peptide (BNP) (11/21/2021 10:02 AM CDT) athologist Signature NT-Pro BNP 108 <=226 pg/mL 11/21/2021 DTL 11:21 AM CDT Comment: NT-proBNP values less than 300 pg/mL hav e a 99% negative predictive value for excluding acute con gestive heart failure. A cutoff of 1200 pg/mL for salome ents with an eGFR<60 yields a diagnostic sensitivity and spec ificity of 89% and 72% for acute congestive heart failure. A diagnostic NT-proBNP cutoff of 900 pg/mL has been s uggested in adults 50-75 years of age in the absence of dilcia al failure. Specimen Anatomical Collection Method Collection Time Receive d Time (Source) Location / / Volume Laterality Blood (Blood, 11/21/2021 10:02 11/21/2021 Venous) AM CDT 10:47 AM CDT Durga García M.D. LAB BLOOD ADD-ON Performing Organization Address City/State/ZIP Code Phon e Number [facility] - [address] [place] [address] [facility] [place] [address] [facility] 200 [facility] (ABNORMAL) CBC with Differential, Blood (11/21/2021 10:02 AM CDT) [facility] gist Method Time Signature Hemoglobin 13.6 11.6 - 11/21/2021 DTL 15.0 g/dL 10:53 AM CDT Hematocrit 42.9 35.5 - 11/21/2021 DTL 44.9 % 10:53 AM CDT Erythrocytes 4.81 3.92 - 11/21/2021 DTL 5.13 10:53 AM CDT x10(12)/L MCV 89.2 78.2 - 11/21/2021 DTL 97.9 fL 10:53 AM CDT RBC Distrib Width 15.6 12.2 - 11/21/2021 DTL 16.1 % 10:53 AM CDT Platelet Count 255 157 - 371 11/21/2021 DTL x10(9)/L 10:53 AM CDT Leukocytes 9.8 (H) 3.4 - 9.6 11/21/2021 DTL x10(9)/L 10:53 AM CDT Neutrophils 8.66 (H) 1.56 - 11/21/2021 DTL 6.45 10:53 AM CDT x10(9)/L Lymphocytes 0.50 (L) 0.95 - 11/21/2021 DTL 3.07 10:53 AM CDT x10(9)/L Monocytes 0.54 0.26 - 11/21/2021 DTL 0.81 10:53 AM CDT x10(9)/L Eosinophils 0.04 0.03 - 11/21/2021 DTL 0.48 10:53 AM CDT x10(9)/L Basophils 0.06 0.01 - 11/21/2021 DTL 0.08 10:53 AM CDT x10(9)/L Specimen Anatomical Collection Method Collection Time Receive d Time (Source) Location / / Volume Laterality Blood (Blood, 11/21/2021 10:02 11/21/2021 Venous) AM CDT 10:22 AM CDT Durga García M.D. LAB BLOOD ADD-ON Performing Organization Address City/[facility]/ZIP Code Phon e Number [facility] - [address] [place], [place] [address] [place] [address] Angiotensin Converting Enzyme (11/21/2021 10:02 AM CDT) P athologist Signature Angiotensin 18 16 - 85 11/21/2021 DTL Converting U/L 11:21 AM CDT Enzyme, S Specimen Anatomical Collection Method Collection Time Receive d Time (Source) Location / / Volume Laterality Blood (Blood, 11/21/2021 10:02 11/21/2021 Venous) AM CDT 10:47 AM CDT Durga García M.D. LAB BLOOD ADD-ON Performing Organization Address City/State/ZIP Code Phon e Number [facility] - [address] CRP (C-Reactive Protein) (11/21/2021 10:02 AM CDT) P athologist Signature C-Reactive <3.0 <=8.0 mg/L 11/21/2021 DTL Protein (CRP), 11:21 AM CDT S Specimen Anatomical Collection Method Collection Time Receive d Time (Source) Location / / Volume Laterality Blood (Blood, 11/21/2021 10:02 11/21/2021 Venous) AM CDT 10:47 AM CDT Durga García M.D. LAB BLOOD ADD-ON Performing Organization Address City/State/ZIP Code Phon e Number [facility] - [address] [place], [place] [address] [facility] [place] [address] (ABNORMAL) Comprehensive Metabolic Panel (11/21/2021 10:02 AM CDT) P athologist Signature Potassium, S 4.4 3.6 - 5.2 11/21/2021 DTL mmol/L 11:18 AM CDT Sodium, S 141 135 - 145 11/21/2021 DTL mmol/L 11:18 AM CDT Chloride, S 101 98 - 107 11/21/2021 DTL mmol/L 11:18 AM CDT Bicarbonate, S 29 22 - 29 11/21/2021 DTL mmol/L 11:18 AM CDT Anion Gap 11 7 - 15 11/21/2021 DTL 11:18 AM CDT BUN (Blood Urea 12 6 - 21 11/21/2021 DTL Nitrogen), S mg/dL 11:18 AM CDT Creatinine 0.98 0.59 - 11/21/2021 DTL 1.04 mg/dL 11:18 AM CDT Estimated GFR 67 >=60 11/21/2021 DTL (eGFR) mL/min/BSA 11:18 AM CDT Comment: Estimated GFR calculated using the 2020 CKD_EPI creatinine equation. Calcium, Total, S 9.8 8.6 - 10.0 mg/dL 11/21/2021 11:1 8 AM CDT DTL Glucose, S 157 (H) 70 - 140 mg/dL 11/21/2021 11:18 AM CDT DTL Protein, Total, S 6.0 (L) 6.3 - 7.9 g/dL 11/21/2021 11:18 AM CDT DTL Albumin, S 4.0 3.5 - 5.0 g/dL 11/21/2021 11:18 AM CDT DTL Aspartate Aminotransferase 15 8 - 43 U/L 11/21/2021 1 1:18 AM CDT DTL (AST), S Alkaline Phosphatase, S 96 35 - 104 U/L 11/21/2021 11 :18 AM CDT DTL Alanine Aminotransferase 20 7 - 45 U/L 11/21/2021 11: 18 AM CDT DTL (ALT), S Bilirubin, Total, S 0.5 <=1.2 mg/dL 11/21/2021 11:18 A M CDT DTL Specimen Anatomical Collection Method Collection Time Receive d Time (Source) Location / / Volume Laterality Blood (Blood, 11/21/2021 10:02 11/21/2021 Venous) AM CDT 10:46 AM CDT Durga García M.D. LAB BLOOD ADD-ON Performing Organization Address City/State/ZIP Code Phon e Number [facility] - [address] [place], [place] [address] [facility] [place] [address] Laboratories-[facility] [address] Interpretation of Outside MR Cardiac (11/21/2021 8:37 AM CDT) Anatomical Region Laterality Modality Cardiovascular RST LOS, Thoracic ARZ LOS, N/A Magnetic Resonance Cardiovascular FLA LOS, Cardiac, Other Specimen (Source) Anatomical Collection Method Collection Time Re ceived Time Location / / Volume Laterality 11/21/2021 8:38 AM CDT Impressions 11/21/2021 10:24 AM CDT 1. Normal left ventricular size and systolic function. RVEF = 65%. Focal mild mid myocardial delayed enhancement in the basal anterior septum which is nonspecific but can be seen with sarcoidosis or scarring. No definite evidence of myocar dial edema in this location. The apparent increased T2 values in the apical segments are not re liably demonstrated on all views and may be artifactual. 2. Mildly thickened mitral valve with mi ld posterior leaflet prolapse and mild regurgitation. 3. Tricuspid aortic valve with mild regu rgitation. 4. Mild dilation of the ascending aorta, 40 mm. 5. Mild mediastinal and bilateral hilar lymphadenopathy and bilateral perihilar predominant perilymphatic pulmonary nodularity doug tible with sarcoidosis as better demonstrated on CT chest 08/24/2021. Narrative 11/21/2021 10:24 AM CDT EXAM: ??INTERPRETATION OF OUTSIDE MR CARDIAC COMPARISON: ??No prior cardiac MRI avail able at this time dictation. Correlation with outside CT chest 08/24/2021. FINDINGS: ?? Outside cardiac MRI without and with int ravenous contrast 10/12/2021. LEFT VENTRICLE: Normal left ventricular size, myocardial thickness, and systolic function. No regional wall motion abnormalities. LVEF = 65%. No evidence of myocardial iron depositio n. Mid septal T2 star = 36 ms. T2 mapping images demonstrate borderline to mildly increased T2 values in the apical segments on the short axis and 3 chamber orientation, bu t normal values in these regions on the 2 chamber and four-chamber orientations. The short axi s and 3 chamber values may be artifactual. Focal mild mid myocardial delayed enhanc ement in the basal anterior septum. RIGHT VENTRICLE: Normal right ventricular size, myocardia l thickness, and systolic function. RVEF = 65%. ATRIA: Severe left atrial enlargement. Normal r ight atrial size. VALVES: Mildly thickened mitral valve. Posterior leaflet mitral valve prolapse. Mild mitral regurgitation. Trileaflet aortic valve. Mild aortic reg urgitation. PERICARDIUM: Normal pericardial thickness. No pericar dial effusion. No abnormal pericardial enhancement. OTHER: ?? Mild dilation of the ascending aorta, 40 mm. Mild mediastinal and bilateral hilar lym phadenopathy and bilateral perihilar predominant perilymphatic pulmonary nodularity doug tible with sarcoidosis as better demonstrated on chest CT 08/24/2021. Small right hepatic cyst. MEASUREMENTS: Left ventricle: End diastolic volume = 188 mL End systolic volume = 67 mL Stroke volume = 121 mL Ejection fraction = 65% Right ventricle: End diastolic volume = 166 mL End systolic volume = 58 mL Stroke volume = 109 mL Ejection fraction = 65% Procedure Note Jg Ruff M.D. - 11/21/2021Formattin g of this note might be different from the original. EXAM: INTERPRETATION OF OUTSIDE MR CARDI AC COMPARISON: No prior cardiac MRI availab le at this time dictation. Correlation with outside CT chest 08/24/2021. FINDINGS: Outside cardiac MRI without and with int ravenous contrast 10/12/2021. LEFT VENTRICLE: Normal left ventricular size, myocardial thickness, and systolic function. No regional wall motion abnormalities. LVEF = 65%. No evidence of myocardial iron depositio n. Mid septal T2 star = 36 ms. T2 mapping images demonstrate borderline to mildly increased T2 values in the apical segments on the short axis and 3 chamber orientation, bu t normal values in these regions on the 2 chamber and four-chamber orientations. The short axi s and 3 chamber values may be artifactual. Focal mild mid myocardial delayed enhanc ement in the basal anterior septum. RIGHT VENTRICLE: Normal right ventricular size, myocardia l thickness, and systolic function. RVEF = 65%. ATRIA: Severe left atrial enlargement. Normal r ight atrial size. VALVES: Mildly thickened mitral valve. Posterior leaflet mitral valve prolapse. Mild mitral regurgitation. Trileaflet aortic valve. Mild aortic reg urgitation. PERICARDIUM: Normal pericardial thickness. No pericar dial effusion. No abnormal pericardial enhancement. OTHER: Mild dilation of the ascending aorta, 40 mm. Mild mediastinal and bilateral hilar lym phadenopathy and bilateral perihilar predominant perilymphatic pulmonary nodularity doug tible with sarcoidosis as better demonstrated on chest CT 08/24/2021. Small right hepatic cyst. MEASUREMENTS: Left ventricle: End diastolic volume = 188 mL End systolic volume = 67 mL Stroke volume = 121 mL Ejection fraction = 65% Right ventricle: End diastolic volume = 166 mL End systolic volume = 58 mL Stroke volume = 109 mL Ejection fraction = 65% IMPRESSION: 1. Normal left ventricular size and syst olic function. RVEF = 65%. Focal mild mid myocardial delayed enhancement in the basal anterior septum which is nonspecific but can be seen with sarcoidosis or scarring. No definite evidence of myocar dial edema in this location. The apparent increased T2 values in the apical segments are not re liably demonstrated on all views and may be artifactual. 2. Mildly thickened mitral valve with mi ld posterior leaflet prolapse and mild regurgitation. 3. Tricuspid aortic valve with mild regu rgitation. 4. Mild dilation of the ascending aorta, 40 mm. 5. Mild mediastinal and bilateral hilar lymphadenopathy and bilateral perihilar predominant perilymphatic pulmonary nodularity doug tible with sarcoidosis as better demonstrated on CT chest 08/24/2021. Durga García M.D. IMG MRI PROCEDURES MR CARDIAC WWO-Outside MR Body (10/12/2021 8:15 AM CDT) Specimen (Source) Anatomical Location Collection Method / Collectio n Time Received Time / Laterality Volume Narrative IIMS - 11/16/2021 8:15 AM CDT This order has been created and auto-finalized to support the import of outside images. If available, original i nterpretation can be found on the Media Tab in Chart Review, in Document V iewer, or as an image in QREADS. If a re-interpretation or overread is re quired please follow defined workflow. ?? Provider Not In System IMG MRI PROCEDURES Performing Organization Address City/State/ZIP Code Phon e Number IIWA IIWA NA Bronchoscopy endobronchial ultrasound-Outside Endoscopy (09/25/2021 3:05 PM CDT) Specimen (Source) Anatomical Location Collection Method / Collectio n Time Received Time / Laterality Volume Narrative IIMS - 11/16/2021 8:11 AM CDT This order has been created and auto-finalized to support the import of outside images. If available, original i nterpretation can be found on the Media Tab in Chart Review, in Document V iewer, or as an image in QREADS. If a re-interpretation or overread is re quired please follow defined workflow. ?? Provider Not In System IMG NON RAD IMAGING PROCEDUR ES Performing Organization Address City/State/ZIP Code Phon e Number IIMS IIMS NA from Last 3 Months Insurance Payer Benefit Plan / Subscriber ID Effective Dates Phone Addre ss Type Group [employer] [id number] 2020-Prese [phone] [address] [place] 0 [phone] [place] [id number]
--- OUTSIDE RECORDS SUMMARY | 2021-12-21 12:15 | XMS_ITS | Encounter Summary ---
:1965 Author Organization [facility] Address [address] [place] [address] Care Team Providers Name Role Phone Unavailable Primary Care Provider Unavailable Reason for Referral Outpatient (Routine) - Closed Specialty Diagnoses / Procedures Referred By Contact Refer red To Contact Diagnoses Sarcoidosis Durga García M.D. [facility] Procedures Echo Transthoracic (TTE) [address] [place] [address] Referral ID Status Reason Start Date Expiration Date Visits Requ ested Visits Authorized [id number] Closed 11/21/2021 11/21/2022 1 1 Reason for Visit Outpatient (Routine) - Closed Specialty Diagnoses / Procedures Referred By Contact Refer red To Contact Diagnoses Sarcoidosis Durga García M.D. [facility] Procedures Echo Transthoracic (TTE) [address] [place] [address] Referral ID Status Reason Start Date Expiration Date Visits Requ ested Visits Authorized [id number] Closed 11/21/2021 11/21/2022 1 1 Encounter Details Date Type Department Care Team Description 11/23/2021 Hospital Encounter Department of Durga García M .D. Sarcoidosis Cardiovascular Diseases in [address] [place], [place] [address] [address] [place] [address] [phone] Social History Tobacco Use Types Packs/Day Years [...] How often do you attend scientologist or adventism More than 4 time s per year [...] place to sleep or slept in a senior living (including now)? Education Answer Date Recorded What is the highest level of school Master's degree (e.g., M A, MS, 11/22/2021 you have completed or the highest Arti, MEd, ARC AIR OPERATOR, GALA) degree you have received? Sex Assigned [...] Disease Ammon Nolan, JESSIKA, C.N.P. [address] [place] [address] (Wo rk) documented as of this encounter Procedures Procedure Name Priority Date/Time Associated Diagnosis Comme nts (TTE) 2D ECHO Routine 11/23/2021 1:47 PM Sarcoidosis Results for this DOPPLER COLOR AND CDT procedure are in CONTRAST the results section. documented in this encounter Results (TTE) 2D ECHO DOPPLER COLOR AND CONTRAST [...] per Echocardiography Contrast Administration Protocol Reference Document [id number]. Danny hernandez met an inclusion criterion and [...] per Echocardiography Contrast Administration Protocol Reference Document [id number]. Patient met an inclusion criterion and did not have contraindications in screening sections. For the complete report, see the Order-L evel Documents. Durga García M.D. CV ECHO PROCEDURES documented in this encounter Visit Diagnoses Diagnosis Sarcoidosis Sarcoid Myocarditis (HCC) - Primary documented in this encounter Administered Medications Inactive Administered Medications - up to 3 most recent administrations Medication Order MAR Action Action Date Dose Rate Site sodium chloride 0.9 % injection 10 Given 11/23/2021 1:47 PM CDT 10 mL mL 10 mL, intravenous, As needed, line care, Starting on Hattie 11/23/21 at 1346, Intraprocedure - Diagnostic, Prior to and following infusion and between multiple consecutive infusions: sodium chloride 0.9 % injection sulfur hexafluoride microspheres injection Given 11/23/2021 1:47 PM CDT 2.5 mL (LUMASON) intravenous, As needed, contrast, Starting on Hattie 11/23/21 at 1346, Intraprocedure - Diagnostic, See protocol. Reconstitute each 25 mg vial with 5 mL NS. documented in this encounter
--- OUTSIDE RECORDS SUMMARY | 2021-12-21 12:15 | XMS_ITS | Encounter Summary ---
:1965 Author Organization [facility] Address [address] [place] [address] Care Team Providers Name Role Phone Unavailable Primary Care Provider Unavailable Encounter Details Date Type Department Care Team Description 11/21/2021 Hospital Encounter Department of Laboratory Durga García M.D. Sarcoidosis Medicine and Pathology, [address] [place] [address] in [place], [place] [address] [place] [address] [place] [address] (Work) [phone] Social History Tobacco Use Types Packs/Day Years [...] or relatives? How often do you attend alevism or church More than 4 time s per year 11/23/2021 services? Do you belong to any clubs or organizations Yes 11/23/2021 such as alevism groups, unions, fraternal or athletic groups, or [...] slept in a senior living (including now)? Sex Assigned at Date Recorded [...] 02/15/2022 Comprehensive Visit Cardiovascular Disease Ammon Nolan, PLANT MAINTENANCE WORKER, C.N.P. [address] [place] [address] (Wo rk) documented as of this encounter Procedures Procedure Name Priority Date/Time Associated Comments Diagnosis THYROID FUNCTION Routine 11/21/2021 10:02 Sarcoidosis Results for this CASCADE, S AM CDT procedure are i n the results section. NT-PRO B-TYPE Routine 11/21/2021 10:02 Sarcoidosis Results fo r this NATRIURETIC PEPTIDE AM CDT procedur e are in (BNP), S the results section. CBC WITH DIFFERENTIAL, Routine 11/21/2021 10:02 Sarcoidosis R esults for this B AM CDT procedure are i n the results section. ANGIOTENSIN CONVERTING Routine 11/21/2021 10:02 Sarcoidosis R esults for this ENZYME, S AM CDT procedure are i n the results section. C-REACTIVE PROTEIN Routine 11/21/2021 10:02 Sarcoidosis Resul ts for this (CRP), S/P AM CDT procedure are i n the results section. COMPREHENSIVE Routine 11/21/2021 10:02 Sarcoidosis Results fo r this METABOLIC PANEL, S/P AM CDT procedu re are in the results section. documented in this encounter Results Thyroid Function [place] (11/21/2021 10:02 AM CDT) athologist Signature TSH, Sensitive 1.1 0.3 - 4.2 11/21/2021 DTL mIU/L 11:18 AM CDT Specimen Anatomical Collection Method Collection Time Receive d Time (Source) Location / / Volume Laterality Blood (Blood, 11/21/2021 10:02 11/21/2021 Venous) AM CDT 10:46 AM CDT Durga García M.D. LAB BLOOD ADD-ON Performing Organization Address [facility] Phon e Number [facility] - [address] [address] [facility] 200 [facility] NT-Pro B-Type Natriuretic Peptide (BNP) (11/21/2021 10:02 [...] M.D. LAB BLOOD ADD-ON Performing Organization Address [facility] Phon e Number [facility] - [address] [place] [address] Laboratories-[facility] [address] [facility] CRP (C-Reactive Protein) (11/21/2021 10:02 AM CDT) athologist Signature C-Reactive <3.0 <=8.0 mg/L 11/21/2021 DTL Protein (CRP), 11:21 AM CDT S Specimen Anatomical Collection Method Collection Time Receive d Time (Source) Location / / Volume Laterality Blood (Blood, 11/21/2021 10:02 11/21/2021 Venous) AM CDT 10:47 AM CDT Durga García M.D. LAB BLOOD ADD-ON Performing Organization Address City/State/ZIP Code Phon e Number [facility] - [address] [place] [address] Laboratories-[address] (ABNORMAL) Comprehensive Metabolic Panel (11/21/2021 10:02 AM CDT) athologist Signature Potassium, S 4.4 3.6 - [...] Organization Address City/State/ZIP Code Phon e Number [facility] - 200 [place], [place] [address] [facility] [place] [address] Laboratories-[facility] 200 [facility] (ABNORMAL) CBC with Differential, Blood (11/21/2021 10:02 AM CDT) [facility] gist Method Time Signature Hemoglobin 13.6 11.6 [...] 11/21/2021 Venous) AM CDT 10:22 AM CDT uDrga García M.D. LAB BLOOD ADD-ON Performing Organization Address City/[facility] Phon e Number [facility] - [address] Angiotensin Converting Enzyme (11/21/2021 10:02 AM CDT) P athologist Signature Angiotensin 18 16 - 85 11/21/2021 DTL Converting U/L 11:21 AM CDT Enzyme, S Specimen Anatomical Collection Method Collection Time Receive d Time (Source) Location / / Volume Laterality Blood (Blood, 11/21/2021 10:02 11/21/2021 Venous) AM CDT 10:47 AM CDT Durga García M.D. LAB BLOOD ADD-ON Performing Organization Address City/[facility] Phon e Number [facility] - [address] [place] [address] Laboratories-[place] [facility] [place] [address] documented in this encounter Visit Diagnoses Diagnosis Sarcoidosis Sarcoid Myocarditis (HCC) - Primary documented in this encounter
--- OUTSIDE RECORDS SUMMARY | 2021-12-21 12:15 | XMS_ITS | Encounter Summary ---
:1965 Author Organization [facility] Address [address] [place] [address] Care Team Providers Name Role Phone Unavailable Primary Care Provider Unavailable Reason for Visit Outpatient (Routine) - Closed Specialty Diagnoses / Procedures Referred By Contact Refer red To Contact Pulmonary Medicine Durga García M.D. [facility] [address] [place] [address] Referral ID Status Reason Start Date Expiration Date Visits Requ ested Visits Authorized [id number] Closed 11/21/2021 11/20/2024 1 1 Encounter Details Date Type Department Care Team Description 11/24/2021 Virtual Visit Division of Pulmonary Durga García M.D. Sarcoidosis (Primary Medicine in [place], [address] [place] [address] Dx) [place], [place] [address] [facility] [address] [place], [place] [phone] (Work) [phone] Social History Tobacco Use Types Packs/Day Years [...] or relatives? How often do you attend denominational or episcopalian More than 4 time s per year 11/23/2021 services? Do you belong to any clubs or organizations Yes 11/23/2021 such as denominational groups, unions, fraternal or athletic groups, or [...] place to sleep or slept in a chcf (including now)? Education Answer Date Recorded What is the highest level of school Master's degree (e.g., M [place], MS, 11/22/2021 you have completed or the highest Arti, MEd, HAND ICER, GALA) degree you have received? Sex Assigned at Date Recorded Female 11/22/2021 11:24 PM CDT documented as of this encounter Progress Notes Durga García M.D. - 11/24/2021 10:30 AM CDT SUBJECTIVE CHIEF COMPLAINT/REASON FOR VISIT Subsequent visit. HISTORY OF PRESENT ILLNESS Ms. Nanci Rice is a 56-year-old tobacco roller, ex-smoker, who visits with me today by phone for a virtual visit to review her test results thus far. ASSESSMENT / PLAN #1 Sarcoidosis with cardiac and pulmonary involvement, on prednisone treatment CT scan of the chest demonstrates mildly enlarged lymph nodes in mediastinal and hilar regions with no significant change compared to outside examination of August 24, 2021. Small pulmonary nodules and conglomerate nodular opacities are noted, predominantly in the perihilar and peribronchovascular distribution consistent with the diagnosis of pulmonary sarcoidosis. This also has not changed compared toprior chest CT examination performed outside 3 months ago . Pulmonary function testing demonstrates normal spirometry including FVC, and diffusing capacity. TheTLC is slightly reduced to 74% predicted, for a mild restrictive pattern. Overall, current pulmonaryfunction measurements look stable compared to prior outside testing of July and August 2021. Total lung capacity apparently measured slightly higher on outside testing of August 2021, but this apparent difference in TLC measurement may be technique-related. Electrocardiogram demonstrates normal sinus rhythm with nonspecific T-wave abnormality. The 24-hour Holter monitoring demonstrated PVCs singly and in pairs with a PVC burden of 5%, and PACs with a PAC burden of 2%. There was 1 symptomatic event during which time the rhythm was sinus. Echocardiogram showed normal left ventricular chamber size with an estimated ejection fraction of 59%. There were regional wall motion abnormalities. Mitral valve posterior leaf prolapse was seen with moderate mitral valve regurgitation. Outside cardiac MR study was reviewed and report shows focal mild mid-myocardial delayed enhancementin the basal anterior septum. Screening blood tests demonstrate slight leukocytosis with neutrophilia (on prednisone treatment) and an elevated non-fasting glucose level, along with elevated lipid levels. I reviewed the situation and test results thus far with Ms. Rice. Her pulmonary sarcoidosis (stageII) is not causing significant functional impairment in view of normal spirometry and diffusing capacity. Thus, her pulmonary sarcoidosis is not a strong indication for continued prednisone treatment. Ms. Rice's Cardiology consultation in regard to her issue of possible cardiac sarcoidosis is not until January. I will communicate with her as needed at that time afterwards. #2 Abnormal outside cardiac MR study #3 Mitral prolapse with moderate regurgitation #4 Cardiac dysrhythmia #5 Exertional shortness of breath #6 Obesity (BMI 36.6) I spent 20 minutes on this phone call visit with Ms. Rice. I spent an additional 10 minutes beforehand to review her test results. Durga García M.D. CT CT Job ID: [id number] documented in this encounter Plan of Treatment Upcoming Encounters Date Type Specialty Care Team Description 02/15/2022 Comprehensive Visit Cardiovascular Disease Ammon Nolan, MATERIAL WORKER, C.N.P. [address] [place] [address] (Wo rk) documented as of this encounter Visit Diagnoses Diagnosis Sarcoidosis - Primary Sarcoid Myocarditis (HCC) - Primary documented in this encounter
--- OUTSIDE RECORDS SUMMARY | 2021-12-21 12:15 | XMS_ITS | Clinical Summary ---
:1965 Author Organization [email or web address] [facility] [employer] [facility] [place] [address] Care Team Providers Name Role Phone Gayathri Carroll Primary Care Provider [phone] Allergies Active Allergy Reactions Severity Noted Date Comments Sulfa (Sulfonamide Antibiotics) Nausea And Vomiting Medications Medication Sig Dispensed Refills Start End Date Status Date clobetasol 0.05% Apply 0 Act milton (TEMOVATE 0.05% topically to 1 OINTMENT) 0.05 % affected ointment area(s) 2 times daily. ProAir HFA 90 0 Active mcg/actuation 1 inhaler nortriptyline Take 2 180 Capsule 3 Acti ve (PAMELOR) 10 mg Capsules (20 2 capsuleIndications mg) by mouth : Anxiety at bedtime. QUEtiapine Take 1 Tablet 90 Tablet 3 Activ e (SEROQUEL) 25 mg (25 mg) by 2 tabletIndications: mouth at Anxiety bedtime. omeprazole Take 20 mg by 0 Activ e (PRILOSEC) 20 mg mouth. Delayed-Release capsule mometasone-formote Inhale 2 Puffs 0 Active rol (Dulera) 200-5 by mouth. 2 mcg/actuation inhaler predniSONE Take 1 Tablet 0 Activ e (DELTASONE) 20 mg (20 mg) by 2 tablet mouth once daily. fluconazole Take 1 Tablet 14 Tablet 0 Acti ve (DIFLUCAN) 200 mg (200 mg) by 2 tabletIndications: mouth once Oral thrush daily. inhalational For MDI 1 Each 0 06/21/202 10/07/20 Discont inued spacing device use.For home 2 22 (* Med use. complete/R egimen complete/L evel of care kacey june) mometasone-formote Inhale 2 Puffs 3 Each 3 Discontinued rol (Dulera) 200-5 by mouth 2 2 22 (*Medication mcg/actuation times daily. adj ustment) inhalerIndications : Asthma, unspecified asthma severity, unspecified whether complicated, unspecified whether persistent fluconazole Take 14 Tablet 0 12/03/19 Disconti nued (DIFLUCAN) 200 mg 2 22 (R eorder tabletIndications: ( E-cancel not Oral thrush sent)) Active Problems Problem Noted Date Sarcoidosis 11/21/2021 Lung interstitial disease 11/21/2021 Pap smear for cervical cancer screening 04/25/2021 Overview: 04/2021 NIL/HPV negative. Plan: Pap/HPV d ue 04/2026 Ventricular trigeminy Mitral valve regurgitation Depression Anxiety Encounters Date Type Specialty Care Team Description 12/21/2021 Hospital Encounter Viktor Oconnor Cardia c sarcoidosis MD Eliezer 12/21/2021 Travel 12/07/2021 Office Visit Viktor Oconnor CV Heart Dewayne sanford Martins MD (Initial visit, ref. by Dr. Greenberg. Pt. looking to know what op tions are moving forward. ) 12/07/2021 Hospital Encounter Viktor Oconnor SVT (s upraventricular MD Eliezer tachycardia) (H C) 12/07/2021 Travel 12/05/2021 Orders Only Viktor Oconnor <No scans at tached> MD Eliezre 12/01/2021 Office Visit Pawan Leblanc DO Mouth/Lip P roblem (Is on prednisone - maria s been treated for thr ush in Sep - feels like it is still there. ) 12/01/2021 Refill Pawan Leblanc DO Refill Requ est (FLUCONAZOLE 20 0MG ) 12/01/2021 Travel 11/27/2021 Refill Cristina Chu Refill Request JC Marr (Clotrimazole) 11/18/2021 Orders Only Scanner <No scans attac hed> 10/19/2021 Office Visit Cristina Chu Mouth/Lip Prob [...] MD appt) 09/25/2021 Anesthesia Event Kiah Sandoval, ADY Mcfarlane, Kenan, EMAIL CAMPAIGN SPECIALIST Student 09/25/2021 Surgery Amrita Block MD BRONCHOSCO PY ENDOBRONCHIAL U LTRASOUND 09/25/2021 Hospital Encounter Amrita Block MD 09/25/2021 Travel 09/20/2021 Preop Visit Humphrey Gracia, Preoper ative Exam (Bronchoscopy , Dr. Block, [facility]); Medication List Update (Not taking Marcelino vent or omeprazole) 09/20/2021 Travel from Last 3 Months Immunizations Name Administration [...] 10 days, have you been in contact No / Unsure 12/21/2021 10:03 AM CDT with someone who was confirmed or suspected to have Coronavirus/COVID-19? Obstetrics History Last Filed Vital Signs Vital Sign Reading Time Taken Comments Blood Pressure 142/90 12/07/2021 3:15 PM CDT Pulse 90 12/07/2021 3:15 PM CDT Temperature 36.4 ??C (97.6 ??F) 09/25/2021 5:38 PM CDT Respiratory Rate 18 09/25/2021 5:38 PM CDT Oxygen Saturation 97% 12/07/2021 3:15 PM CDT Inhaled Oxygen Concentration - - Weight 109.1 kg (240 lb 9.6 oz) 12/07/2021 3:15 PM CDT Height 172.7 cm (5' 8) 12/07/2021 3:15 PM CDT Body Mass Index 36.58 12/07/2021 3:15 PM CDT Plan of Treatment Upcoming Encounters Date Type Specialty Care Team Description 12/25/2021 Office Visit Derrick Bower MD [address] [place] [address] (Wo rk) Health Maintenance Due Date Last Done Comments Pneumococcal series for age 19-64 1969 (1 - PCV) Depression screening for age 12+ 1975 Zoster (shingles) series for age 0204/07/2013 50+ (1 of 2) Mammogram for age 45-75 08/10/2021 08/10/2020 (Completed ou tside of [employer]) Influenza for age 50-64 10/26/2021 04/21/2020 COVID-19 vaccine series (5 - 11/23/2021 09/28/2021, 021, Booster for Pfizer series) 06/13/2020, Additiona l history exists BMI (ht and wt on same day) for 12/07/2022 12/07/2021, 08/26, age 18+ 08/31/2021, Additional history exists Tetanus booster 09/03/2023 09/02/2013 Colonoscopy through age 75 10/26/2024 10/26/2014 (Completed outside of [employer]) Lipids for age 45-75 05/22/2026 05/22/2021 Pap test for age 21-65 05/22/2026 05/22/2021, 05/22/2021 Tdap Completed 09/02/2013 Hepatitis C screening for age Completed 05/22/2021 18-79 Procedures Procedure Name Priority Date/Time Associated Diagnosis Comme nts GLUCOSE METER Routine 12/21/2021 11:09 Results fo r this AM CDT procedure are i n the results section. BASIC METABOLIC PANEL Today 12/07/2021 2:54 PM SVT Results for this CDT (supraventricular procedure are in tachycardia) (HC) the result s section. SCAN-RADIOLOGY REPORT 11/18/2021 12:00 Re sults for this AM CDT procedure are i n the results section. MR CARDIAC WWO Routine 10/12/2021 9:05 AM [...] i n the results section. PATH NON TRAVEL DIRECTOR CYTOLOGY Today 09/25/2021 3:37 PM Results for [...] the results section. SCAN-CARDIAC STRIP 09/25/2021 12:00 AM Re sults for this CDT procedure are i n the results section. COVID 19 Routine 09/20/2021 10:17 AM Encounter for Results for this CDT preprocedure procedure are i n screening laboratory the res ults testing for COVID-19 section . COVID 19 COLLECTION Routine 09/20/2021 10:17 AM Encounter for Results for this CDT preprocedure procedure are i n screening laboratory the res ults testing for COVID-19 section . from Last 3 Months Results (ABNORMAL) GLUCOSE METER (12/21/2021 11:09 AM CDT) athologist Signature GLUCOSE METER 101 (H) 65 - 100 [facility] 11:15 AM CDT LABORATORY-JOSE TRAL LABORATORY Specimen Anatomical Collection Method Collection Time Receive d Time (Source) Location / / Volume Laterality Blood BLOOD SPECIMEN / 12/21/2021 11:09 022 Unknown AM CDT 11:15 AM CDT Viktor Oconnor MD CHEMISTRY Performing Organization Address City/State/ZIP Code Phon e Number [facility] [address] [place] [phone] LABORATORY-CENTRAL 2000 LABORATORY (ABNORMAL) BASIC METABOLIC PANEL (12/07/2021 2:54 PM CDT) Analysis Performed At Patho logist Time Signature SODIUM 143 135 - 145 12/07/2021 [facility] mmol/L 3:35 PM CDT POTASSIUM 3.0 (L) 3.5 - 5.0 12/07/2021 [facility] mmol/L 3:35 PM CDT CHLORIDE 104 98 - 110 12/07/2021 [facility] mmol/L 3:35 PM CDT CO2,TOTAL 31 21 - 31 12/07/2021 [facility] mmol/L 3:35 PM CDT ANION GAP 8 5 - 18 12/07/2021 [facility] 3:35 PM CDT GLUCOSE 107 (H) 65 - 100 12/07/2021 [facility] mg/dL 3:35 PM CDT CALCIUM 10.0 8.5 - 10.5 12/07/2021 [facility] mg/dL 3:35 PM CDT BUN 13 8 - 25 12/07/2021 [facility] mg/dL 3:35 PM CDT CREATININE 1.04 0.57 - 12/07/2021 [facility] 1.11 mg/dL 3:35 PM CDT BUN/CREAT RATIO 13 10 - 20 12/07/2021 [facility] 3:35 PM CDT eGFR 62 (L) >90 12/07/2021 [facility] mL/min/1.7 3:35 PM CDT 3m2 Comment: As of 2021, eGFR is calcu [...] Laterality Blood BLOOD SPECIMEN / Venipuncture / 12/07/2021 2:54 2021 2:54 Unknown Unknown PM CDT PM CDT Viktor Oconnor MD CHEMISTRY Performing Organization Address City/State/ZIP Code Phon e Number [facility] [address] [phone] SCAN-RADIOLOGY REPORT (11/18/2021 12:00 AM CDT)Only the most recent of2 results within the time period is included. Narrative This result has an attachment that is no t available. Scanner OTHER MR CARDIAC WWO (10/12/2021 9:05 AM CDT) Anatomical Region Laterality Modality HEART, THORAX Magnetic Resonance Specimen (Source) Anatomical Collection Method Collection Time Re ceived Time Location / / Volume Laterality 10/12/2021 8:12 AM CDT Narrative 10/12/2021 2:15 PM CDT ?[facility] ? CMR Report ??MRN: ?[id number] ?Name: ?CORONEL, NANCI L ?: ?1966-0 2-11 ?Scan Date: ?? 2021-10-12 08:12:26 ? Electronically signed by Red Garcia 26-Sep-17 14:15:46 VITALS HEIGHT: 68.00 in ?(172.72 [...] ba sed on T2 parametric imaging. - [place] T1 is borderline/mildly elevate d. - Normal [...] Apical Lateral ? None ? Normal ? Potter ? None ? Normal ? + + + + +------ + RV Segments ? Wall Motion Hyperenhancement Stress Perfusion Interpretation + + + + +------ + RV Basal Anterior ? RV Basal Inferior ? RV Mid ? RV Apical ? ' + + + +------ ' ?FINDINGS ?LV SCAR SIZE (17 SEGMENT): ? ?2 % SCAN INFO GENERAL -------- ?SCANNER ?LIP CUTTER: ??SIEMENS ?MODEL: ??Avanto_fit ?CONTRAST AGENT ?GD CONCENTRATION: ??1.0 M ?VOLUME ADMINISTERED: ??10 ml ?DOSAGE: ??0.10 mmol/kg ?SETUP ?REFERRING PHYSICIAN: ??LESA GREENBERG ?ATTENDING PHYSICIAN: ??LESA GREENBERG BILLING Patient Account ?[id number] ICD10 Codes ?D86.85 Report generated by walker Melendez of [employer] Procedure Note Red Garcia MD - 10/12/2021Format ting of this note might be different from the original. [facility] CMR Report Name: NANCI CORONEL : 1965 [...] ba sed on T2 parametric imaging. - [place] T1 is borderline/mildly elevate d. - Normal [...] Inferior None Normal Apical Lateral None Normal Potter None Normal + + + + +------ + RV Segments Wall Motion Hyperenhan cement Stress Perfusion Interpretation + + + + +------ + RV Basal Anterior RV Basal Inferior RV Mid RV Apical ' + + + +------ ' FINDINGS ------- LV SCAR SIZE (17 SEGMENT): 2 % SCAN INFO GENERAL -------- SCANNER ------- LIP CUTTER: SIEMENS MODEL: Avanto_fit CONTRAST AGENT ------- GD CONCENTRATION: 1.0 M VOLUME ADMINISTERED: 10 ml DOSAGE: 0.10 mmol/kg SETUP ------- REFERRING PHYSICIAN: LESA GREENBERG ATTENDING PHYSICIAN: LESA GREENBERG BILLING Patient Account [id number] ICD10 Codes D86.85 Report generated by walker Melendez of [employer] Lesa Greenberg MD MR HEMATOCRIT/HGB,ISTAT (10/12/2021 7:46 AM CDT) P athologist Signature HEMATOCRIT, 43.0 33.0 - 10/12/2021 [facility] POCT 51.0 % 7:51 AM CDT LABORATORY HEMOGLOBIN, 14.6 12.0 - 10/12/2021 [facility] POCT 16.0 g/dL 7:51 AM CDT LABORATORY Specimen Anatomical Collection Method Collection Time Receive d Time (Source) Location / / Volume Laterality Blood BLOOD SPECIMEN / 10/12/2021 7:46 AM 10/12 7:50 Unknown CDT AM CDT Lesa Greenberg MD CHEMISTRY Performing Organization Address City/State/ZIP Code Phon e Number [facility] LABORATORY SENDOUT INTERNAL ZIP [place], [place] [phone] [facility] PATH TISSUE EXAM (09/25/2021 4:20 PM CDT) Component Value Ref Test Analysis Performed At [facility] gist Range Method Time Signature Case Report Pathology Report ?Case: [id number] ? 09/27/2021 [facility] Authorizing Provider: ??Amrita Mo ma, MD ?Collected: ? 09/25/2021 1620 ? 4:33 PM HEAL TH Ordering Location: ? [facility] ?Received: ?09/26/2021 0744 ? CDT RAMANDEEP CORRIGAN [...] 4:33 PM HEALTH CDT LABORATORY-C See case [id number] the EBUS lymph node sampling. ENTRAL LABORATORY Clinical 56-year-old 09/27/2021 [facility] Information female with 4:33 PM HEALTH adenopathy. CDT LABORATORY-C ENTRAL LABORATORY Gross A) Received in formalin, lab eled with the patient's name and right random lung biopsy, are several cylindrical scant friable lopez-white focally hemorrhagic tissue cores and scant blood clot, ranging 0. 09/27/2021 [facility] Description 1-0.8 cm long, 0.1 cm diamet [...] Negative Additional 09/27/2021 [facility] Information Interpreted at [facility], Central Laboratory - [address], [place] [address] 4:33 PM HEALTH CDT LABORATORY-C ENTRAL LABORATORY Specimen Anatomical Collection Method Collection Time Receive d Time (Source) Location / / Volume Laterality Biopsy SPECIMEN FROM LUNG 09/25/2021 4:20 PM 03/2021 7:44 / Unknown CDT AM CDT Amrita Block MD PATHOLOGY/CYTOLOGY Performing Organization Address City/State/ZIP Code Phon e Number [facility] [address] [place] [address] LABORATORY-CENTRAL 2000 LABORATORY [facility] LABORATORY SENDOUT INTERNAL ZIP [place], [place] [phone] [facility] NON TRAVEL DIRECTOR CYTOLOGY (09/25/2021 3:37 PM CDT) Component Value Ref Test Analysis Performed At [facility] gist Range Method Time Signature Case Report Medical Cytology Report ? Case: [id number] ? 09/27/2021 [facility] Authorizing Provider: ??Amrita Mo ma, MD ?Collected: ? 09/25/2021 1537 ? 1:55 PM HEAL TH Ordering Location: ? [facility] ?Received: ?09/25/2021 1631 ? CDT RAMANDEEP CORRIGAN Pathologist: ? Ladonna Baeza ? ENTRAL ? MD Tere ? LABORATORY Specimens: ?? A) - Station [...] PM HEALTH Please see concurrent surgical biopsy, [id number]. CDT LABORATORY-C ENTRCHRISS RAINEY Gross 09/27/2021 [facility] Description A) Received identified [...] with an impression of Not Adequate. 2021 [facility] Assessment B) [facility] assessed adequacy fro m the [...] ENTRAL LABORATORY Additional Cytology is screened at [facility], Central Laboratory - [address], [place] [address] and [facility] - [address], [place] [address] and 09/27/2021 [facility] - [address] [place] [address] 1:55 PM HEALTH CDT LABORATORY-C ENTRAL Interpreted at [facility], Central Laboratory - [address], [place] [address] LABORATORY Specimen (Source) Anatomical Collection Method Collection [...] Organization Address City/State/ZIP Code Phon e Number [facility] [address] [place] [address] LABORATORY-CENTRAL 2000 LABORATORY [facility] LABORATORY SENDOUT INTERNAL ZIP [place], [place] [address] [place] [address] ETT (09/25/2021 3:32 PM CDT) Narrative Kenan [...] 0 (not difficult) Electronically signed by Kenan Mcfarlane, EMAIL CAMPAIGN SPECIALIST Student ? Ancelmo Kendrick MD ANESTHESIA PX [...] ul trasound Proceduralist: Amrita Block MD - [facility] Referring MD: Derrick Bower MD Indications/Pre-Op Diagnosis: [...] Airway inspection completed. The bronchoscope loaner (# [id number]) was int roduced through the and advanced [...] (09/20/2021 10:17 AM CDT) Analysis Performed At Path logist Time Signature COVID 19 Negative Negative 09/21/2021 [facility] 12:22 PM CDT LABORATORY-JOSE MOLECULAR TRAL LABORATORY [...] CDT PM CDT STRUCTURE / Unknown Narrative [facility] LABORATORY-CENTRAL LABORAT ORY - 09/21/2021 12:22 [...] Humphrey Gracia MD MICROBIOLOGY Performing Organization Address City/State/ZIP Code Phon e Number [facility] [address] [place] [address] LABORATORY-CENTRAL 2000 LABORATORY COVID 19 COLLECTION (09/20/2021 10:17 AM CDT) [facility] gist Method Time Signature TESTING [facility] 09/20/[address] [facility] LABORATORY Laboratory 6:20 PM CDT LABORATORY-CE NTRAL LABORATORY Comment: Specimen submitted to [facility] Laboratory for testing. Specimen Anatomical Location / Collection Method Collection Barrett e Received Time (Source) Laterality / Volume Other SPECIMEN FROM Non-Blood / 09/20/2021 10:17 09/20/2021 NASOPHARYNGEAL Unknown AM CDT 10:30 AM CDT STRUCTURE / Unknown Humphrey Gracia MD SEND OUTS Performing Organization Address City/State/ZIP Code Phon e Number [facility] [address] [place] [address] LABORATORY-CENTRAL 2000 LABORATORY from Last 3 Months Insurance Payer Benefit Plan / Subscriber ID Effective Dates Phone Addre ss Type Group [id number] 2020-Present [address] [address] [place] [address] (Home) [place] [address] Care Teams Pharmacist Hospital Relationship Specialty Start Date End Date Gayathri Carroll PA PCP - General Physician Clinical Business Analyst 01/30/[address] [place] [address]
--- OUTSIDE RECORDS SUMMARY | 2021-12-21 12:15 | XMS_ITS | Encounter Summary ---
:1965 Author Organization [facility] Address [address] [place] [address] Care Team Providers Name Role Phone Unavailable Primary Care Provider Unavailable Encounter Details Date Type Department Care Team Description 11/21/2021 Ancillary Procedure Department of Radiology Durga García M.D. Sarcoidosis in [facility] [address] [facility] [address] [place] [id number] Social History Tobacco Use Types Packs/Day Years [...] or relatives? How often do you attend judaism or jain More than 4 time s per year 11/23/2021 services? Do you belong to any clubs or organizations Yes 11/23/2021 such as judaism groups, unions, fraternal or athletic groups, or [...] place to sleep or slept in a retirement (including now)? Sex Assigned at Date Recorded Female 11/22/2021 11:24 PM CDT documented as of this encounter Plan of Treatment Upcoming Encounters Date Type Specialty Care Team Description 02/15/2022 Comprehensive Visit Cardiovascular Disease Ammon Nolan, JESSIKA, C.N.P. [address] [place] [address] (Wo rk) documented as of this encounter Procedures Procedure Name Priority Date/Time Associated Comments Diagnosis INTERPRETATION OF RAD - Routine 11/21/2021 8:37 Sarcoidosis Result s for OUTSIDE MR CARDIAC (most inpatients AM CDT this procedure and all are in the outpatients) results section. documented in this encounter Results Interpretation of Outside MR Cardiac (11/21/2021 8:37 [...] better demonstrated on CT chest 08/24/2021. Durga GIBBS MRI PROCEDURES documented in this encounter Visit Diagnoses Diagnosis Sarcoidosis Sarcoid Myocarditis (HCC) - Primary documented in this encounter
--- OUTSIDE RECORDS SUMMARY | 2021-12-21 12:15 | XMS_ITS | Encounter Summary ---
:1965 Author Organization [facility] Address [address] [place] [address] Care Team Providers Name Role Phone Unavailable Primary Care Provider Unavailable Reason for Referral Outpatient (Routine) - Closed Specialty Diagnoses / Procedures Referred By Contact Refer red To Contact Pulmonary Medicine Durga García M.D. [facility] [address] [place] [address] Referral ID Status Reason Start Date Expiration Date Visits Requ ested Visits Authorized [id number] Closed 11/21/2021 11/20/2024 1 1 Scheduling Instructions Return for F2F or virtual after PFTs/CT chest utpatient (Routine) - Authorized Specialty Diagnoses / Procedures Referred By Contact Refer red To Contact Diagnoses Sarcoidosis Durga García M.D. [facility] Procedures ECG Heart rhythm monitor (Holter) [address] [place] [address] Referral ID Status Reason Start Date Expiration Date Visits V isits Requested Authorized [id number] Authorized 11/21/2021 11/21/2022 1 1 utpatient (Routine) - Authorized Specialty Diagnoses / Referred By Contact Referred To Contact Procedures Cardiovascular Diseases / Diagnoses Sarcoidosis Durga García M.D. [facility] Cardiovascular Disease [address] [place] [address] Referral ID Status Reason Start Date Expiration Date Visits V isits Requested Authorized [id number] Authorized 11/21/2021 11/21/2022 1 1 utpatient (Routine) - Closed Specialty Diagnoses / Procedures Referred By Contact Refer red To Contact Diagnoses Sarcoidosis Durga García M.D. [facility] Procedures Echo Transthoracic (TTE) [address] [place], [place] [address] Referral ID Status Reason Start Date Expiration Date Visits Requ ested Visits Authorized [id number] Closed 11/21/2021 11/21/2022 1 1 utpatient (Routine) - Closed Specialty Diagnoses / Procedures Referred By Contact Refer red To Contact Diagnoses Sarcoidosis Durga García M.D. [facility] Procedures ECG 12 Lead [address] [place], [place] [address] Referral ID Status Reason Start Date Expiration Date Visits Requ ested Visits Authorized [id number] Closed 11/21/2021 11/21/2022 1 1 RI/CAT/PET Scan (Routine) - Closed Specialty Diagnoses / Procedures Referred By Contact Refer red To Contact Radiology Diagnoses Lung Interstitial Disease (HCC) Durga García M.D. [facility] Procedures CT Chest without IV Contrast [address] [place], [place] [address] Referral ID Status Reason Start Date Expiration Date Visits Requ ested Visits Authorized [id number] Closed 11/21/2021 11/21/2022 1 1 Reason for Visit Appointment Request (Routine) - Closed Specialty Diagnoses / Procedures Referred By Contact Refer red To Contact Pulmonary Medicine Diagnoses Sarcoidosis Referral ID Status Reason Start Date Expiration Date Visits Requ ested Visits Authorized [id number] Closed 10/20/2021 10/20/2022 1 1 Encounter Details Date Type Department Care Team Description 11/21/2021 Comprehensive Visit Division of Durga García Sarcoido sis; Pulmonary Medicine Maeve Lung Interstitial Disease (HCC) in [place] [address] [place], [place] [address] [facility] [address] [place], [place] [phone] (Work) [phone] Social History Tobacco Use Types Packs/Day Years [...] or relatives? How often do you attend jainism or gnosticism More than 4 time s per year 11/23/2021 services? Do you belong to any clubs or organizations Yes 11/23/2021 such as jainism groups, unions, fraternal or athletic groups, or [...] place to sleep or slept in a fpc (including now)? Sex Assigned at Date Recorded Female 11/22/2021 11:24 PM CDT documented as of this encounter Last Filed Vital Signs Vital Sign Reading [...] Mass Index 36.63 11/21/2021 7:47 AM CDT documented in this encounter H&P Notes Durga García M.D. - 11/21/2021 8:00 AM CDT SUBJECTIVE Self-referred. CHIEF COMPLAINT/REASON FOR VISIT Sarcoidosis with heart and lung involvement. 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 Ms. Rice describes exertional shortness of breath that dates back about 5 years. She had also beennoted to have frequent PVCs. Earlier this year in July, she underwent chest imaging with chest radiography and CT scan of the chest that demonstrated intrathoracic lymphadenopathy along with nodules inboth lungs suggestive of sarcoidosis. She subsequently underwent bronchoscopy with EBUS- guided transbronchial needle aspiration of intrathoracic lymph nodes that yielded granulomatous inflammation. Endobronchial biopsies also demonstrated non-necrotizing granulomas. Special stains were negative for microorganisms. She was diagnosed to have sarcoidosis. Pulmonary function testing performed on September 06, 2021, demonstrated normal results including TLC 5.38 (92% predicted); FVC 3.08 (80% predicted); FEV1, 2.36 (78% predicted); FEV1/FVC ratio of 76.7%; anddiffusing capacity 21.78 (96% predicted, corrected for hemoglobin). Ms. Rice also underwent a cardiac evaluation that included cardiac MR study which was felt to demonstrate cardiac involvement with sarcoidosis. Ms. Rice was started on prednisone treatment at 40 mg per day for a duration of 2 weeks followed by 20 mg a day for the past 3 to 4 weeks or so. Ms. Rice describes about a 14-pound weight gain along with facial changes and hair loss on prednisone treatment. She has had thrush. Ms. Rice comes to us for a reassessment of her sarcoidosis and a second opinion regarding her management. Her exertional shortness of breath has not changed or improved. The following portions of the patient's history were reviewed and updated as appropriate: Allergies,current medications, family history, medical history, social history, surgical history, and problem list. FAMILY HISTORY Family history is negative for sarcoidosis or autoimmune diseases. MEDICAL HISTORY Past medical history is noted for: Mitral valve prolapse/mitral valve regurgitation. Anxiety, depression. Prior cholecystectomy. 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 Smoked half pack of cigarettes per day for about 10 years. Quit smoking in 2004. OBJECTIVE PHYSICAL EXAMINATION General: Does not look dyspneic in conversation. No coughing observed. Lymph: There is fullness in both supraclavicular areas without discrete lymphadenopathy. Heart: Regular rhythm. No murmur or gallop heard. Lungs: Lungs sound clear other than for a few inspiratory crackles over the lung bases. No wheezes or rhonchi heard. Abdomen: Benign with no organomegaly or tenderness. Extremities: No digital clubbing. No edema. Gait normal. Neurologic: Alert and oriented. ASSESSMENT / PLAN #1 Recent diagnosis of sarcoidosis with cardiac and pulmonary involvement, on prednisone treatment Ms. 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 She has been experiencing exertional shortness of breath for the past 5 years along with frequent PVCs which appearto have decreased on prednisone treatment. Her recent outside cardiac MRI is said to have demonstrated cardiac involvement with sarcoidosis. I reviewed the situation and outside test results with Ms. Rice. We will reassess her sarcoidosis situation with chest CT and pulmonary function testing. She will also be seen in Cardiac Sarcoidosis Clinic which will be preceded by blood tests, ECG, 24-hour Holter, and echocardiogram. We will have her outside cardiac MRI of October 12, 2021, reviewed. I will see Ms. Rice back as these tests are completed. #2 Exertional shortness of breath #3 Cardiac dysrhythmia #4 Obesity (BMI 36.6) Durga García M.D. CT CT Job ID: [id number] documented in this encounter Plan of Treatment Upcoming Encounters Date Type Specialty Care Team Description 02/15/2022 Comprehensive Visit Cardiovascular Disease Ammon Nolan, JESSIKA, C.N.P. [address] [place] [address] (Wo rk) Scheduled Referrals Name Type Priority Associated Order Schedule Diagnoses Cardiovascular Disease Outpatient Routine Sarcoidosis Expec caty: - Cardiac sarcoidosis Referral 2021 consult (clinic) (Approximat e), Expires: 02/20/2023 Pulmonary Medicine Outpatient Routine 1 Occurre nces office visit (clinic) Referral starti ng 11/21/2021 unti l 02/20/2023 documented as of this encounter Results CT Chest without IV Contrast (11/23/2021 [...] parenchymal involvement by darvin coidosis, unchanged. Durga GIBBS CT PROCEDURES (TTE) 2D ECHO DOPPLER COLOR [...] per Echocardiography Contrast Administration Protocol Reference Document [id number]. Danny hernandez met an inclusion criterion and [...] per Echocardiography Contrast Administration Protocol Reference Document [id number]. Patient met an inclusion criterion and did not have contraindications in screening sections. For the complete report, see the Order-L evel Documents. Durga García M.D. CV ECHO PROCEDURES HOLTER MONITOR - IN CLINIC PLASMA SPECIALIST (11/22/2021 1:27 PM CDT) P athologist Signature [...] AF Duration 0 duration [facility] AF [place] 0 percent INFOBION[facility]OME Symptom Count 1 [...] bpm. ??Single SVPCs and VPCs were noted. Barking Machine Feeder: Josy Cano Fellow: Eliu Prather Procedure Note [...] bpm. Single SVPCs and VPCs were noted. Barking Machine Feeder: Josy Cano Fellow: Eliu Prather Durga García M.D. CV CARDIAC SERVICES PROCEDUR ES Performing Organization Address City/State/ZIP Code Phon e Number [facility] NA ECG 12 Lead (11/22/2021 11:50 AM CDT) P athologist Signature Ventricular Rate 84 BPM MUSE ECG/Min OR Interval 142 ms MUSE QRSD Interval 86 ms MUSE QT Interval 352 ms MUSE QTC Interval 415 ms MUSE P [place] 53 degrees MUSE R [place] -10 degrees MUSE T Wave [place] 46 degrees MUSE Specimen Anatomical Collection Method [...] García M.D. ECG ORDERABLES Performing Organization Address City/State/ZIP Code Phon e Number MUSE MUSE NA Pulmonary Function Tests (11/22/2021 9:16 AM CDT) Analysis Performed At Patho logist Time Signature VC MAX POST 3.01 L 11/22/2021 [facility] 1:28 PM CDT SUITE PostFVC 3.01 L 11/22/2021 [facility] 1:28 PM CDT SUITE PostFEV1 2.22 L 11/22/2021 [facility] 1:28 PM CDT SUITE FEV1/FVC POST 73.72 % 11/22/2021 [facility] 1:28 PM CDT SUITE FEF 25-75 % 1.62 L/s 11/22/2021 [facility] 1:28 PM CDT SUITE PEF POST 5.80 L/s 11/22/2021 [facility] 1:28 PM CDT SUITE FET POST 7.61 sec 11/22/2021 [facility] 1:28 PM CDT SUITE DLCO SINGLE 18.30 ml/(min*mm [facility]/22[facility]) 1:28 PM CDT SUITE DLCOC SINGLE 18.19 ml/(min*mm 11/22/2021 [facility] Hg) 1:28 PM CDT SUITE HB 13.60 g(Hb)/dL 11/22/2021 [facility] 1:28 PM [address] VA SINGLE 4.27 L 11/22/2021 [facility] 1:28 PM CDT SUITE TLC POST 4.29 L 11/22/2021 [facility] 1:28 PM CDT SUITE VC POST 3.00 L 11/22/2021 [facility] 1:28 PM CDT SUITE FRCPLETH POST 2.06 L 11/22/2021 [facility] 1:28 PM CDT SUITE RV 1.29 L 11/22/2021 [facility] 1:28 PM CDT SUITE RV % TLC POST 30.07 % 11/22/2021 [facility] 1:28 PM CDT SUITE VC MAX PRE 3.01 L 11/22/2021 [facility] 1:28 PM CDT SUITE FVC 2.88 L 11/22/2021 [facility] 1:28 PM CDT SUITE FEV1 2.18 L 11/22/2021 [facility] 1:28 PM CDT SUITE FEV1/FVC 75.68 % 11/22/2021 [facility] 1:28 PM CDT SUITE GKL22-06% 1.72 L/s 11/22/2021 [facility] 1:28 PM CDT SUITE PEF PRE 6.00 L/s 11/22/2021 [facility] 1:28 PM CDT SUITE FET PRE 6.23 sec 11/22/2021 [facility] 1:28 PM CDT SUITE SUBSTANCE POST Albuterol 11/22/2021 [facility] 1:28 PM CDT SUITE DOSE POST 2 Puff 11/22/2021 [facility] 1:28 PM CDT SUITE % PRED VC MAX 83 % % 11/22/2021 [facility] 1:28 PM CDT SUITE FVC% 79 % % 11/22/2021 [facility] 1:28 PM CDT SUITE FEV1% 76 % % 11/22/2021 [facility] 1:28 PM CDT SUITE % PRED 96 % % 11/22/2021 [facility] FEV1/FVC 1:28 PM CDT SUITE % PRED FEF 68 % % 11/22/2021 [facility] 25-75% 1:28 PM CDT SUITE % PRED PEF 96 % % 11/22/2021 [facility] 1:28 PM CDT SUITE PRED TLC 5.82 11/22/2021 [facility] 1:28 PM CDT SUITE PRED RV 1.93 11/22/2021 [facility] 1:28 PM CDT SUITE PRED VC MAX 3.65 11/22/2021 [facility] 1:28 PM CDT SUITE PRED FVC 3.65 11/22/2021 [facility] 1:28 PM CDT SUITE PRED FEV 1 2.86 11/22/2021 [facility] 1:28 PM CDT SUITE PRED FEV1/FVC 79.0 11/22/2021 [facility] 1:28 PM CDT SUITE PRED FEF 2.53 11/22/2021 [facility] 25-75% 1:28 PM CDT SUITE PRED PEF 6.2 11/22/2021 [facility] 1:28 PM CDT SUITE PRED DLCO 23.0 11/22/2021 [facility] 1:28 [address] PRED DLCOc 23.0 11/22/2021 [facility] 1:28 PM CDT SUITE Specimen (Source) Anatomical Collection Method Collection Time Re ceived Time Location / / Volume Laterality 11/22/2021 9:16 AM CDT Impressions [facility] - 11/22/2021 1:28 PM C DT Abnormal. A pulmonary restrictive proces s is indicated by mild reduction in TLC. Normal spirometry and diffusing capacity . There is no acute response to bronchodilator. Narrative This result has an attachment that is no t available. Procedure Note Chloo Alonso M.D. - 11/22/2021Formattin g of this note might be different from the original. IMPRESSION: Abnormal. A pulmonary restrictive proces s is indicated by mild reduction in TLC. Normal spirometry and diffusing capacity. There is no acute response to bronchodilator. Durga García M.D. PFT ORDERABLES Performing Organization Address City/State/ZIP Code Phon e Number [facility] NA Thyroid Function [place] (11/21/2021 10:02 AM CDT) P athologist Signature TSH, Sensitive 1.1 0.3 - 4.2 11/21/2021 DTL mIU/L 11:18 AM CDT Specimen Anatomical Collection Method Collection Time Receive d Time (Source) Location / / Volume Laterality Blood (Blood, 11/21/2021 10:02 11/21/2021 Venous) AM CDT 10:46 AM CDT Durga García M.D. LAB BLOOD ADD-ON Performing Organization Address City/State/ZIP Code Phon e Number [facility] - [address] [place], [place] [address] [facility] [place] [address] Laboratories-[facility] [address] NT-Pro B-Type Natriuretic Peptide (BNP) (11/21/2021 10:02 AM CDT) [facility]-Pro BNP 108 <=226 pg/mL 11/21/2021 DT 11:21 AM CDT Comment: NT-proBNP values less [...] M.D. LAB BLOOD ADD-ON Performing Organization Address City/[facility] Code Phon e Number [facility] - [address] CRP (C-Reactive Protein) (11/21/2021 10:02 AM CDT) [facility] C-Reactive <3.0 <=8.0 mg/L 11/21/2021 DT Protein (CRP), 11:21 AM CDT S Specimen Anatomical Collection Method Collection Time Receive d Time (Source) Location / / Volume Laterality Blood (Blood, 11/21/2021 10:02 11/21/2021 Venous) AM CDT 10:47 AM CDT Durga García M.D. LAB BLOOD ADD-ON Performing Organization Address City/[facility] Phon e Number [facility] - [address] (ABNORMAL) Comprehensive Metabolic Panel (11/21/2021 10:02 AM CDT) [facility] Potassium, S 4.4 3.6 - 5.2 11/21/2021 [...] Organization Address City/State/ZIP Code Phon e Number [facility] - [address] [place], [place] [address] [facility] [place] [address] Laboratories-[facility] [address] [facility] (ABNORMAL) CBC with Differential, Blood (11/21/2021 10:02 AM CDT) [facility] Method Time Signature Hemoglobin 13.6 11.6 - [...] M.D. LAB BLOOD ADD-ON Performing Organization Address City/[facility]/ZIP Code Phon e Number [facility] - [address] Angiotensin Converting Enzyme (11/21/2021 10:02 AM CDT) P athologist Signature Angiotensin 18 16 - 85 11/21/2021 DTL Converting U/L 11:21 AM CDT Enzyme, S Specimen Anatomical Collection Method Collection Time Receive d Time (Source) Location / / Volume Laterality Blood (Blood, 11/21/2021 10:02 11/21/2021 Venous) AM CDT 10:47 AM CDT Durga García M.D. LAB BLOOD ADD-ON Performing Organization Address [facility] Phon e Number [facility] - [address] Interpretation of Outside MR Cardiac (11/21/2021 8:37 [...] in this encounter Visit Diagnoses Diagnosis Sarcoidosis Lung Interstitial Disease (HCC) Sarcoidosis Sarcoidosis Lung Interstitial Disease (HCC) Sarcoidosis Sarcoid Myocarditis (HCC) - Primary documented in this encounter
--- OUTSIDE RECORDS SUMMARY | 2021-12-21 12:15 | XMS_ITS | Encounter Summary ---
:1965 Author Organization [facility] Address [address] [place] [address] Care Team Providers Name Role Phone Unavailable Primary Care Provider Unavailable Reason for Visit Reason Comments Previsit Preparation Encounter Details Date Type Department Care Team Description 11/20/2021 Clinical Communication Visit Review in Pr evisit Preparation [place], [place] [address] [place], [place] [phone] Social History Tobacco Use Types Packs/Day Years [...] or relatives? How often do you attend nondenominational or taoism More than 4 time s per year 11/23/2021 services? Do you belong to any clubs or organizations Yes 11/23/2021 such as nondenominational groups, unions, fraternal or athletic groups, or [...] place to sleep or slept in a detention (including now)? Sex Assigned at Date Recorded Female 11/22/2021 11:24 PM CDT documented as of this encounter Plan of Treatment Upcoming Encounters Date Type Specialty Care Team Description 02/15/2022 Comprehensive Visit Cardiovascular Disease Ammon Nolan, TETRYL NITRATOR OPERATOR, C.N.P. [address] [place] [phone] (Wo rk) documented as of this encounter Visit Diagnoses Not on filedocumented in this encounter
== END 2021-11-17 23:25 | disposition home or self-care (01) ==
LOC: AMB 12-21 11:32
PROVIDERS: PCP Physician Assistant Medical; Visit Provider Family Medicine
DX: R07.89 Other chest pain (principal)
CPT/HCPCS: A0425; A0427

== ENCOUNTER 2021-11-17 23:57 | Emergency (ER) | payer BC, SELFPAY ==
[2021-11-18] VITALS (17 sets, daily range): BP systolic 124–147; BP diastolic 68–83; PULSE 55–77; RESP 16; TEMP 36.8; O2SAT 93–98
--- OUTSIDE RECORDS SUMMARY | 2021-11-18 00:03 | XMS_ITS | Clinical Summary ---
:1965 Author Organization [employer] Address Un[place] [address] Care Team Providers Name Role Phone [facility] Primary Care Provider Allergies Active Allergy Reactions Severity Noted Date Comments Sulfa (Sulfonamide Antibiotics) Nausea And Vomiting Medications Medication Sig Dispensed Refills Start Date End Date Status clobetasol 0.05% Apply topically 0 01/30/2021 Active (TEMOVATE 0.05% to affected OINTMENT) 0.05 % area(s) 2 times ointment daily. ProAir HFA 90 0 12/13/2020 Activ e mcg/actuation inhaler nortriptyline Take 2 Capsules 180 Capsule 3 05/22/2021 Active (PAMELOR) 10 mg (20 mg) by mouth capsuleIndications: at bedtime. Anxiety QUEtiapine Take 1 Tablet 90 Tablet 3 05/22/2021 Acti ve (SEROQUEL) 25 mg (25 mg) by mouth tabletIndications: at bedtime. Anxiety inhalational spacing For MDI use.For 1 Each 0 08/15/2021 Active device home use. mometasone-formotero Inhale 2 Puffs 3 Each 3 09/09/2021 Active l (Dulera) 200-5 by mouth 2 times mcg/actuation daily. inhalerIndications: Asthma, unspecified asthma severity, unspecified whether complicated, unspecified whether persistent predniSONE Take 1 Tablet 30 Tablet 6 10/12/2021 11/11/2021 Exp ired (DELTASONE) 20 mg (20 mg) by mouth tabletIndications: once daily. Sarcoidosis clotrimazole Dissolve 1 70 Tablet 0 10/19/2021 11/02/2021 Expi red (MYCELEX DORIAN) 10 Tablet (10 mg) mg in the mouth 5 trocheIndications: times daily for Thrush 14 days. Active Problems Problem Noted Date Pap smear for cervical cancer screening 04/25/2021 Overview: 04/2021 NIL/HPV negative. Plan: Pap/HPV d ue 04/2026 Ventricular trigeminy Mitral valve regurgitation Depression Anxiety Encounters Date Type Specialty Care Team Description 10/19/2021 Office Visit Cristina Chu Mouth/Lip Prob JC Abad (Possible thru sh in mouth and throat) 10/19/2021 Travel 10/16/2021 Telephone Lesa Greenberg, Results (cMRI results.) 10/12/2021 Hospital Encounter Lesa Greenberg, Ca rdiac sarcoidosis 10/12/2021 Travel 09/29/2021 Orders Only Scanner <No scans attac hed> 09/29/2021 Orders Only Lesa Greenberg, <No scan s attached> 09/27/2021 Telephone Derrick Bower Appointment (Jo Ann Siegel MD appt) 09/25/2021 Anesthesia Event Kiah Sandoval, Kenan Alcazar CRNA Student 09/25/2021 Surgery mArita Block MD BRONCHOSCO PY ENDOBRONCHIAL U LTRASOUND 09/25/2021 Hospital Encounter Amrita Block MD 09/25/2021 Travel 09/20/2021 Preop Visit Humphrey Gracia Preoperative Exam MD Mack (Bronchoscopy , Dr. Block, [facility]); Medication List Update (Not taking Marcelino vent or omeprazole) 09/20/2021 Travel 09/12/2021 Ancillary Procedure 09/11/2021 Travel 09/08/2021 Refill Derrick Bower Refill Request (Brody) MD Robbin 09/07/2021 Telephone Coral Gipson RN 09/06/2021 Hospital Encounter Derrick Bower Adenopat hy MD Robbin 09/06/2021 Travel 08/31/2021 Orders Only Lab, [facility] 08/31/2021 Office Visit Derrick Bower Follow Up (Ast hma/COPD) MD Robbin 08/31/2021 Travel 08/29/2021 Telephone Lesa Greenberg, Jaime on 7.2 1 MELANIE PAGE 08/24/2021 Ancillary Procedure 08/24/2021 Travel 08/23/2021 Telephone Lesa Greenberg, Results (Heart monitor/) 08/22/2021 Telephone Lesa Greenberg, Concerns MD from Last 3 Months Immunizations Name Administration Dates Next Due Influenza, IIV4 04/21/2020 Tdap 09/02/2013 Family History Medical History Relation Name Comments Aortic aneurysm Father Arrhythmia Father had an ablation Coronary artery disease Father Hypertension Father Kidney disease Father was born w/only 1 kidney Ulcerative colitis Father Atrial fibrillation Mother Cancer-ovarian Mother Hyperlipidemia Mother Hypothyroidism Mother Cancer-colon Other paternal 1st cou sin Ulcerative colitis Paternal Uncle Relation Name Status Comments Father Mother Other Paternal Uncle Social History Tobacco Use Types Packs/Day Years Used Date Former Smoker Cigarettes 0.5 10 Smokeless Tobacco: Never Used Tobacco Cessation: Counseling Given: Yes Alcohol Use Standard Drinks/Week Comments Yes 1 (1 standard drink = 0.6 oz pure alcoho l) Sex Assigned at Date Recorded Not on file COVID-19 Exposure Response Date Recorded In the last 10 days, have you been in contact with No / Unsu re 10/19/2021 4:16 PM CDT someone who was confirmed or suspected to have Coronavirus/COVID-19? Obstetrics History Last Filed Vital Signs Vital Sign Reading Time Taken Comments Blood Pressure 136/73 10/19/2021 4:23 PM CDT Pulse 55 10/19/2021 4:23 PM CDT Temperature 36.4 ??C (97.6 ??F) 09/25/2021 5:38 PM CDT Respiratory Rate 18 09/25/2021 5:38 PM CDT Oxygen Saturation 98% 10/19/2021 4:23 PM CDT Inhaled Oxygen Concentration - - Weight 106.8 kg (235 lb 6.4 oz) 10/19/2021 4:23 PM CDT Height 172.7 cm (5' 8) 09/25/2021 11:41 AM CDT Body Mass Index 35.79 09/25/2021 11:41 AM CDT Plan of Treatment Upcoming Encounters Date Type Specialty Care Team Description 12/25/2021 Office Visit Derrick Bower MD [address] [id number] (Wo rk) Health Maintenance Due Date Last Done Comments Pneumococcal series for age 19-64 1969 (1 - PCV) Depression screening for age 12+ 1975 Zoster (shingles) series for age 0204/07/2013 50+ (1 of 2) Mammogram for age 45-75 08/10/2021 08/10/2020 (Completed ou tside of [facility]) Influenza for age 50-64 10/26/2021 04/21/2020 BMI (ht and wt on same day) for 09/20/2022 09/20/2021, 0708/2021, age 18+ 08/15/2021, Additional history exists Tetanus booster 09/03/2023 09/02/2013 Colonoscopy through age 75 10/26/2024 10/26/2014 (Completed outside of [facility]) Lipids for age 45-75 05/22/2026 05/22/2021 Pap test for age 21-65 05/22/2026 05/22/2021, 05/22/2021 Tdap Completed 09/02/2013 Hepatitis C screening for age Completed 05/22/2021 18-79 COVID-19 vaccine series Completed 09/28/2021, 12/29/2020, 06/13/2020, Additional history exists Procedures Procedure Name Priority Date/Time Associated Diagnosis Comme nts MR CARDIAC WWO Routine 10/12/2021 9:05 AM Cardiac sarcoidosis Results for this CDT procedure are i n the results section. HEMATOCRIT/HGB,ISTAT Routine 10/12/2021 7:46 AM R esults for this CDT procedure are i n the results section. SCAN-RADIOLOGY REPORT 09/29/2021 12:00 Re sults for this AM CDT procedure are i n the results section. PATH TISSUE EXAM Today 09/25/2021 4:20 PM Resul ts for this CDT procedure are i n the results section. PATH NON RETAIL MAINTENANCE TECHNICIAN CYTOLOGY Today 09/25/2021 3:37 PM Results for this CDT procedure are i n the results section. ENDOTRACHEAL TUBE Routine 09/25/2021 3:32 PM Resu lts for this CDT procedure are i n the results section. BRONCHOSCOPY WITH 09/25/2021 3:05 PM Adenopathy BIOPSY CDT Case Notes 1330 NO TIER GIVEN Pathology Is Scheduled At 1400 With [facility] HT 5'8 WT 225NO HEALTH ALERT S COVID-19 AND HP WITH PCP BRONCHOSCOPY ENDOBRONCHIAL ULTRASOUND FINE 09/25/2021 3:05 PM CDT Adenopathy NEEDLE ASPIRATE Case Notes 1330 NO TIER GIVEN Pathology Is Scheduled At 1400 With [employer] HT 5'8 WT 225NO HEALTH ALERT S COVID-19 AND HP WITH PCP BRONCHOSCOPY ENDOBRONCHIAL ULTRASOUND 09/25/2021 3:05 PM CDT Adenopathy Case Notes 1330 NO TIER GIVEN Pathology Is Scheduled At 1400 With [employer] [facility] HT 5'8 WT 225NO HEALTH ALERT S COVID-19 AND HP WITH PCP BRONCHOSCOPY 09/25/2021 3:03 PM Results f or this CDT procedure are i n the results section. SCAN-CARDIAC STRIP 09/25/2021 12:00 Resul ts for this AM CDT procedure are i n the results section. COVID 19 Routine 09/20/2021 10:17 Encounter for Results fo r this AM CDT preprocedure procedure are i n screening laboratory the res ults testing for COVID-19 section . COVID 19 COLLECTION Routine 09/20/2021 10:17 Encounter for Res ults for this AM CDT preprocedure procedure are i n screening laboratory the res ults testing for COVID-19 section . US ABDOMEN LIMITED Routine 09/12/2021 9:13 AM Adenopathy Res ults for this LIVER CDT procedure are i n the results section. COMPLETE PULMONARY Routine 09/06/2021 2:00 PM Adenopathy Res ults for this FUNCTION TEST WITH CDT procedure are in BRONCHODILATOR the results section. CBC WITH AUTO Routine 08/31/2021 9:44 AM Adenopathy Results for this DIFFERENTIAL CDT procedure are i n the results section. ANGIOTENSIN CONVERTING Routine 08/31/2021 9:44 AM Adenopathy Results for this ENZYME CDT procedure are i n the results section. HISTOBLOOD CAPSULATUM Routine 08/31/2021 9:44 AM Adenopathy Results for this ABS CDT procedure are i n the results section. BLASTOMYCES ANTIGEN Routine 08/31/2021 9:44 AM Adenopathy Re sults for this CDT procedure are i n the results section. BLASTOMYCES ABS QN DID Routine 08/31/2021 9:44 AM Adenopathy Results for this CDT procedure are i n the results section. HISTOPLASMA Routine 08/31/2021 9:44 AM Adenopathy Results f or this QUANTITATIVE ANTIGEN CDT procedu re are in the results section. COMP METABOLIC PANEL Routine 08/31/2021 9:44 AM Adenopathy R esults for this CDT procedure are i n the results section. CBC WITH AUTO Routine 08/31/2021 9:44 AM Adenopathy Results for this DIFFERENTIAL CDT procedure are i n the results section. CT CHEST WO Routine 08/24/2021 4:00 PM SOB (shortness of Resu lts for this CDT breath) procedure are i n the results section. from Last 3 Months Results MR CARDIAC WWO (10/12/2021 9:05 AM CDT) Anatomical Region Laterality Modality HEART, THORAX Magnetic Resonance Specimen (Source) Anatomical Collection Method Collection Time Re ceived Time Location / / Volume Laterality 10/12/2021 8:12 AM CDT Narrative 10/12/2021 2:15 PM CDT ?[facility] ? CMR Report ??MRN: ?[id number] ?Name: ?CORONEL, NANCI L ?: ?1966-0 2-11 ?Scan Date: ?? 2021-10-12 08:12:26 ? Electronically signed by Red Garcia 202 26-Sep-17 14:15:46 VITALS HEIGHT: 68.00 in ?(172.72 cm) WEIGHT: 227.01 lbs ?(102.97 kgs) BSA: 2.16 m^2 FINAL IMPRESSION 1. 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 - LV cavity size is normal. LV wall thic kness is normal. LV systolic function is normal. Quantitative LVEF 66 %. - There is mid wall delayed enhancement of the basal anteroseptum. - There is evidence of regional edema ba sed on T2 parametric imaging. - Inupiat T1 is borderline/mildly elevate d. - Normal ECV remote from delayed enhance ment. - Prominent mediastinal lymph nodes. 2. RV cavity size is normal. RV systolic function is normal. Quantitative RVEF 66 %. 3. There is posterior mitral leaflet pro lapse. Mitral valve is mildly thickened. There is mild mitral regurgitation. Mitral regurgitant volume 16 ml. 4. Multiple pulmonary nodules. (Consider dedicated imaging). 5. 1.6 X1.5 hepatic lesion noted. (Consi diogo dedicated imaging). SUMMARY LEFT VENTRICLE: LV cavity size is normal . LV wall thickness is normal. LV systolic function is normal. Quantitative LVEF 66 %. VIABILITY: LV scar size is 2 %. RIGHT VENTRICLE: RV cavity size is linda l. RV systolic function is normal. Quantitative RVEF 66 %. LV/RV SEPTUM: The LV/RV septum is normal . LA/RA SEPTUM: The LA/RA septum is normal . LEFT ATRIUM: LA is severely enlarged. RIGHT ATRIUM: The right atrium is normal . PERICARDIUM: There is no pericardial eff usion. PLEURAL EFFUSION: There is no pleural ef fusion. AORTIC VALVE: Aortic valve is trileaflet . There is no aortic stenosis. There is mild aortic regurgitation. Aortic regurgitant fraction 8 %. MITRAL VALVE: There is posterior mitral leaflet prolapse. Mitral valve is mildly thickened. There is mild mitral regurgitation. Mitral regurgitant volume 16 ml. TRICUSPID VALVE: The tricuspid valve is normal. PULMONIC VALVE: The pulmonic valve is no rmal. AORTIC ROOT: The aortic root is normal. OTHER FINDINGS: 1. Ascending aorta is mi ldly dilated (41mm). 2. Prominent mediastinal lymph nodes. 3. Multiple pulmonary nodules. 4. 1.6 X1.5 hepatic lesion noted. 5. Normal IVC size. CORE EXAM MEASUREMENTS -------- ?VOLUMETRIC ANALYSIS ? . . ? LV ?? Referen ce RV ?? Reference +-----+ +-----+ +---- -+ + EDV ml ? 191 ??(86-166) 179 ??(81-166) ? ml/m^2 ?89 ??(56-90) ?83 ??(53-90) ?? ESV ml ?64 ??(22-59) ?60 ??(15-68) ? ml/m^2 ?30 ??(14-33) ?28 ??(11-37) ?? CO ?? L/min ? L/min/m^2 ? g/m^2 ? SV ?? ml ? 127 ??(57-113) 119 ??(56-108) ? ml/m^2 ?59 ??(37-62) ?55 ??(36-60) ?? EF ?? % ?66 ??(59-77) ?66 ??(55-79) ?? '-----+ +-----+ +---- -+ ' ?LV DIMENSIONS ?WALL THICKNESS - ANTEROSEPTA L: ??1.0 cm ?WALL THICKNESS - INFEROLATER AL: ??0.7 cm ?AORTIC ROOT DIMENSIONS ?SINUS OF VALSALVA: ??3.5 cm ?AORTIC VALVE ?ASCENDING AORTA & CORONARY O STIA ?MAX ASCENDING AORTA DI AMETER: ??41 mm ?EXTRACELLULAR VOLUME MEASUREMENT ?PRE-CONTRAST T1 MYOCARDIUM: ??1060 msec ?ECV: ??28 % ?IRON QUANTIFICATION ?MYOCARDIAL T2*: ??33 msec 17 SEGMENT -------- . . Segments ? Wall Motion Hyperenhancement Stress Perfusion Interpretation + + + + +------ + Base Anterior ? None ? Normal ? Base Anteroseptal ? 26-50% ? Non-CAD Scar ?? Base Inferoseptal ? None ? Normal ? Base Inferior ? None ? Normal ? Base Inferolateral ? None ? Normal ? Base Anterolateral ? None ? Normal ? Mid Anterior ? None ? Normal ? Mid Anteroseptal ? None ? Normal ? Mid Inferoseptal ? None ? Normal ? Mid Inferior ? None ? Normal ? Mid Inferolateral ? None ? Normal ? Mid Anterolateral ? None ? Normal ? Apical Anterior ? None ? Normal ? Apical Septal ? None ? Normal ? Apical Inferior ? None ? Normal ? Apical Lateral ? None ? Normal ? [place] ? None ? Normal ? + + + + +------ + RV Segments ? Wall Motion Hyperenhancement Stress Perfusion Interpretation + + + + +------ + RV Basal Anterior ? RV Basal Inferior ? RV Mid ? RV Apical ? ' + + + +------ ' ?FINDINGS ?LV SCAR SIZE (17 SEGMENT): ? ?2 % SCAN INFO GENERAL -------- ?SCANNER ?SHORT HAUL DRIVER: ??SIEMENS ?MODEL: ??Avanto_fit ?CONTRAST AGENT ?GD CONCENTRATION: ??1.0 M ?VOLUME ADMINISTERED: ??10 ml ?DOSAGE: ??0.10 mmol/kg ?SETUP ?REFERRING PHYSICIAN: ??LESA GREENBERG ?ATTENDING PHYSICIAN: ??LESA GREENBERG BILLING Patient Account ?[id number] ICD10 Codes ?D86.85 Report generated by walker Melendez of [employer] Procedure Note Red Garcia MD - 10/12/2021Format ting of this note might be different from the original. [facility] CMR Report Name: NANCI CORONEL : 1965 Scan Date: 2021-10-12 08:12:26 Electronically signed by Red Garcia 202 26-Sep-17 14:15:46 VITALS HEIGHT: 68.00 in (172.72 cm) WEIGHT: 227.01 lbs (102.97 kgs) BSA: 2.16 m^2 FINAL IMPRESSION 1. 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 - LV cavity size is normal. LV wall thic kness is normal. LV systolic function is normal. Quantitative LVEF 66 %. - There is mid wall delayed enhancement of the basal anteroseptum. - There is evidence of regional edema ba sed on T2 parametric imaging. - Inupiat T1 is borderline/mildly elevate d. - Normal ECV remote from delayed enhance ment. - Prominent mediastinal lymph nodes. 2. RV cavity size is normal. RV systolic function is normal. Quantitative RVEF 66 %. 3. There is posterior mitral leaflet pro lapse. Mitral valve is mildly thickened. There is mild mitral regurgitation. Mitral regurgitant volume 16 ml. 4. Multiple pulmonary nodules.(Consider dedicated imaging). 5. 1.6 X1.5 hepatic lesion noted. (Consi diogo dedicated imaging). SUMMARY LEFT VENTRICLE: LV cavity size is normal . LV wall thickness is normal. LV systolic function is normal. Quantitative LVEF 66 %. VIABILITY: LV scar size is 2 %. RIGHT VENTRICLE: RV cavity size is linda l. RV systolic function is normal. Quantitative RVEF 66 %. LV/RV SEPTUM: The LV/RV septum is normal . LA/RA SEPTUM: The LA/RA septum is normal . LEFT ATRIUM: LA is severely enlarged. RIGHT ATRIUM: The right atrium is normal . PERICARDIUM: There is no pericardial eff usion. PLEURAL EFFUSION: There is no pleural ef fusion. AORTIC VALVE: Aortic valve is trileaflet . There is no aortic stenosis. There is mild aortic regurgitation. Aortic regurgitant fraction 8 %. MITRAL VALVE: There is posterior mitral leaflet prolapse. Mitral valve is mildly thickened. There is mild mitral regurgitation. Mitral regurgitant volume 16 ml. TRICUSPID VALVE: The tricuspid valve is normal. PULMONIC VALVE: The pulmonic valve is no rmal. AORTIC ROOT: The aortic root is normal. OTHER FINDINGS: 1. Ascending aorta is mi ldly dilated (41mm). 2. Prominent mediastinal lymph nodes. 3. Multiple pulmonary nodules. 4. 1.6 X1.5 hepatic lesion noted. 5. Normal IVC size. CORE EXAM MEASUREMENTS -------- VOLUMETRIC ANALYSIS ------- . . LV Reference RV Reference +-----+ +-----+ +---- -+ + EDV ml 191 (86-166) 179 (81- 166) ml/m^2 89 (56-90) 83 (53-90) ESV ml 64 (22-59) 60 (15-68) ml/m^2 30 (14-33) 28 (11-37) CO L/min L/min/m^2 g/m^2 SV ml 127 (57-113) 119 (56-1 08) ml/m^2 59 (37-62) 55 (36-60) EF % 66 (59-77) 66 (55-79) '-----+ +-----+ +---- -+ ' LV DIMENSIONS ------- WALL THICKNESS - ANTEROSEPTAL: 1.0 cm WALL THICKNESS - INFEROLATERAL: 0.7 cm AORTIC ROOT DIMENSIONS ------- SINUS OF VALSALVA: 3.5 cm AORTIC VALVE ------- ASCENDING AORTA & CORONARY OSTIA MAX ASCENDING AORTA DIAMETER: 41 mm EXTRACELLULAR VOLUME MEASUREMENT ------- PRE-CONTRAST T1 MYOCARDIUM: 1060 msec ECV: 28 % IRON QUANTIFICATION ------- MYOCARDIAL T2*: 33 msec 17 SEGMENT -------- . . Segments Wall Motion Hyperenhancem ent Stress Perfusion Interpretation + + + + +------ + Base Anterior None Normal Base Anteroseptal 26-50% Non-C AD Scar Base Inferoseptal None Normal Base Inferior None Normal Base Inferolateral None Normal Base Anterolateral None Normal Mid Anterior None Normal Mid Anteroseptal None Normal Mid Inferoseptal None Normal Mid Inferior None Normal Mid Inferolateral None Normal Mid Anterolateral None Normal Apical Anterior None Normal Apical Septal None Normal Apical Inferior None Normal Apical Lateral None Normal [place] None Normal + + + + +------ + RV Segments Wall Motion Hyperenhan cement Stress Perfusion Interpretation + + + + +------ + RV Basal Anterior RV Basal Inferior RV Mid RV Apical ' + + + +------ ' FINDINGS ------- LV SCAR SIZE (17 SEGMENT): 2 % SCAN INFO GENERAL -------- SCANNER ------- SHORT HAUL DRIVER: SIEMENS MODEL: Avanto_fit CONTRAST AGENT ------- GD CONCENTRATION: 1.0 M VOLUME ADMINISTERED: 10 ml DOSAGE: 0.10 mmol/kg SETUP ------- REFERRING PHYSICIAN: LESA GREENBERG ATTENDING PHYSICIAN: LESA GREENBERG BILLING Patient Account [id number] ICD10 Codes D86.85 Report generated by walker Melendez of [employer] Lesa Greenberg MD MR HEMATOCRIT/HGB,ISTAT (10/12/2021 7:46 AM CDT) P athologist Signature HEMATOCRIT, 43.0 33.0 - 10/12/2021 [facility] POCT 51.0 % 7:51 AM CDT LABORATORY HEMOGLOBIN, 14.6 12.0 - 10/12/2021 [facility] POCT 16.0 g/dL 7:51 AM CDT LABORATORY Specimen Anatomical Collection Method Collection Time Receive d Time (Source) Location / / Volume Laterality Blood BLOOD SPECIMEN / 10/12/2021 7:46 AM 10/12 7:50 Unknown CDT AM CDT Lesa Greenberg MD CHEMISTRY Performing Organization Address City/State/ZIP Code Phon e Number [facility] SENDOUT INTERNAL ZIP [place], [place] [phone] [facility] SCAN-RADIOLOGY REPORT (09/29/2021 12:00 AM CDT) Narrative This result has an attachment that is no t available. Scanner OTHER PATH TISSUE EXAM (09/25/2021 4:20 PM CDT) Component Value Ref Test Analysis Performed At [facility] gist Range Method Time Signature Case Report Pathology Report ?Case: [id number] ? 09/27/2021 [place] Authorizing Provider: ??Amrita Mo ma, MD ?Collected: ? 09/25/2021 1620 ? 4:33 PM HEAL TH Ordering Location: ? [facility] ?Received: ?09/26/2021 0744 ? CDT RAMANDEEP CORRIGAN Pathologist: ? Robbin Gaxiola MD ? ENTRAL Specimen: ?Right Lung, R ight random lung biopsy ? LABORATORY Final A) LUNG, RIGHT, ENDOBRONCHIAL BIOPSIES: 09/27/2021 [facility] Electronically Diagnosis 1. Granulomatous inflammation (without definite necrosis) 4:33 PM HEALTH signed by 2. GMS stain: Negative CDT Robbin Crews 3. AFB stain: Negative FELICE Guy MD on 4. Negative for malignancy LAB ORATORY 09/27/2021 at 4:32 PM Comment A) The presence of nonnecrot izing granulomas combined with the negative special stains would be supportive of the diagnosis of sarcoidosis (which I understand is currently being considered clinically). 09/27/2021 [facility] Infectious origin or other i nflammatory etiologies are not necessarily excluded. 4:33 PM HEALTH CDT LABORATORY-C See case [id number] the EBUS lymph node sampling. ENTRAL LABORATORY Clinical 56-year-old 09/27/2021 [facility] Information female with 4:33 PM HEALTH adenopathy. CDT LABORATORY-C ENTRAL LABORATORY Gross A) Received in formalin, lab eled with the patient's name and right random lung biopsy, are several cylindrical scant friable lopez-white focally hemorrhagic tissue cores and scant blood clot, ranging 0. 09/27/2021 [place] Description 1-0.8 cm long, 0.1 cm diamet er. ??Specimen is wrapped and entirely submitted in 2 cassettes. 4:33 PM HOSPITAL CDT LABORATORY Time removed from patient: 1620 Time placed in formalin: 1620 Date removed and placed in formalin: 09/25/2021 Cold ischemic time < 60 chayo issa. The specimen was fixed in formalin for a minimum of 6 hours and not longer than 72 hours. LDW 09/26/2021 Microscopic The final diagnosis is based on microscopic examination of appropriate sections of all specimens. 09/27/2021 [facility] Description 4:33 PM HEALTH Granulomatous inflammation w as observed and special stains for microorganisms were indicated. Following results are seen: CDT LABORATORY-C ENTRAL GMS stain: Negative LABORATORY AFB stain: Negative Additional 09/27/2021 [facility] Information Interpreted at [facility], Central Laboratory - [address], [place] [address] 4:33 PM HEALTH CDT LABORATORY-C ENTRAL LABORATORY Specimen Anatomical Collection Method Collection Time Receive d Time (Source) Location / / Volume Laterality Biopsy SPECIMEN FROM LUNG 09/25/2021 4:20 PM 03/2021 7:44 / Unknown CDT AM CDT Amrita Block MD PATHOLOGY/CYTOLOGY Performing Organization Address City/State/ZIP Code Phon e Number [facility] [address] [place] [address] [place] [address] LABORATORY-CENTRAL [address] LABORATORY [facility] SENDOUT INTERNAL ZIP [place] [id number] [place] [address] PATH NON RETAIL MAINTENANCE TECHNICIAN CYTOLOGY (09/25/2021 3:37 PM CDT) Component Value Ref Test Analysis Performed At [facility] gist Range Method Time Signature Case Report Medical Cytology Report ? Case: [id number] ? 09/27/2021 [facility] Authorizing Provider: ??Amrita Mo ma, MD ?Collected: ? 09/25/2021 1537 ? 1:55 PM HEAL TH Ordering Location: ? [facility] ?Received: ?09/25/2021 1631 ? CDT [facility]-C Pathologist: ? Ladonna Baeza ? ENTRAL ? Tere, ? LABORATORY Specimens: ?? A) - Station 1 1L Interlobar Lymph Node ? B) - Stat ion 7 Subcarinal Lymph Node ? C) - Stat ion 11R Interlobar Lymph Node ? Final A) LYMPH NODE, STATION 11L I NTERLOBAR, ENDOBRONCHIAL ULTRASOUND-GUIDED FINE NEEDLE ASPIRATION: 09/27/2021 [facility] Elec tronically Diagnosis 1. No definitive lymph node tissue present in this sample (non-diagnostic) 1:55 PM HEALTH signed by CDT LABORATORY-C Gamal Espinosa, B) LYMPH NODE, STATION 7 SUB CARINAL, ENDOBRONCHIAL ULTRASOUND-GUIDED FINE NEEDLE ASPIRATION: ENTRCHRISS Carranza, 1. Polymorphous small mature lymphocytes present, consistent with senia sampling LABORATORY MD on 09/27/2021 2. Rare epithelioid histiocytes, suggestive of granuloma (se e comment) at 1:55 PM 3. Negative for malignancy in this sample C) LYMPH NODE, STATION 11R I NTERLOBAR, ENDOBRONCHIAL ULTRASOUND-GUIDED FINE NEEDLE ASPIRATION: 1. No definitive lymph node tissue present in this sample (n on-diagnostic) Comment B) The cell block is scant, composed mostly of cartilage. No granulomas are identified for special stains. 09/27/2021 [facility] 1:55 PM HEALTH Please see concurrent surgical biopsy, [id number]. CDT LABORATORY-C ENTRAL LABORATORY Gross 09/27/2021 [facility] Description A) Received identified as S tation 11L, is a fine needle aspirate specimen. 1:55 PM HEALTH CDT LABORATORY-C The specimen consists of: ENTR AL ? -3 Air dried slides LAB ORATORY ? -1 CytoLyt vial ? -0 RPMI vials ? -1 Formalin vial The following were prepared from the specimen submitted: ? -3 Diff-Quik stained slides ? -1 Papanicolaou stained ThinPrep slide ? -1 H&E stained cell block slide A2- Cell block material was removed from the patient and placed directly in formalin at 1551 on 09/26/21 and fixed in formalin at least 6 hours and no more than 72 hours. B) Received identified as Station 7, is a fine needle aspi rate specimen. The specimen consists of: ? -7 Air dried slides ? -1 CytoLyt vial ? -0 RPMI vials ? -1 Formalin vial The following were prepared from the specimen submitted: ? -7 Diff-Quik stained slides ? -1 Papanicolaou stained ThinPrep slide ? -1 H&E stained cell block slide B2- Cell block material was removed from the patient and placed directly in formalin at 1614 on 09/26/21 and fixed in formalin at least 6 hours and no more than 72 hours. C) Received identified as Station 11R, is a fine nee dle aspirate specimen. The specimen consists of: ? -3 Air dried slides ? -1 CytoLyt vial ? -0 RPMI vials ? -1 Formalin vial The following were prepared from the specimen submitted: ? -3 Diff-Quik stained slides ? -1 Papanicolaou stained ThinPrep slide ? -1 H&E stained cell block slide C2- Cell block material was removed from the patient and placed directly in formalin at 1610 on 09/26/21 and fixed in formalin at least 6 hours and no more than 72 hours. Adequacy A) [facility] assessed adequacy fro m the air-dried smears at the time of the procedure with an impression of Not Adequate. 2021 [facility] B) [facility] assessed adequacy fro m the air-dried smears at the time of the procedure with an impression of Adequate. 1:55 PM HOSPITAL C) [facility] assessed adequacy fro m the air-dried smears at the time of the procedure with an impression of Not Adequate. CDT LAB ORATORY Microscopic Specimen adequacy: Adequate for interpretation. 09/27/2021 [facility] Description 1:55 PM HEALTH All slides were reviewed. Th e microscopic appearance substantiates the diagnosis. CDT LABORATORY-C ENTRAL LABORATORY Additional Cytology is screened at [facility], Central Laboratory - [address], [place] [address] and [facility] - [address], [place] [address] and 09/27/2021 [facility] Information [facility] - [address] [address] [address] 1:55 PM HEALTH CDT LABORATORY-C ENTRAL Interpreted at [facility], Central Laboratory - [address], [place] [address] LABORATORY Specimen (Source) Anatomical Collection Method Collection Time Re ceived Time Location / / Volume Laterality Aspirate (Station 09/25/2021 3:37 022 4:31 11L Interlobar PM CDT PM CDT Lymph Node) Specimen obtained 09/25/2021 3:50 022 4:31 by aspiration PM CDT PM CDT (specimen) (Station 7 Subcarinal Lymph Node) Specimen obtained 09/25/2021 4:01 022 4:31 by aspiration PM CDT PM CDT (specimen) (Station 11R Interlobar Lymph Node) Amrita Block MD PATHOLOGY/CYTOLOGY Performing Organization Address City/State/ZIP Code Phon e Number [facility] [address] [place] [address] [place] [address] LABORATORY-CENTRAL 2000 LABORATORY [facility] LABORATORY SENDOUT INTERNAL ZIP [place], [place] [id number] [place] [address] ETT (09/25/2021 3:32 PM CDT) Narrative Kenan Mcfarlane CRNA Student - 3:32 PM CDT Kenan Mcfarlane CRNA Student ? 09/25/2021 ??3:33 PM Procedure: ETT Patient location during procedure: OR ETT Properties Mask Ventilation: easy Final Technique: direct laryngoscopy Type: straight Location: oral Cuffed: yes Tube Size: 8.0 mm Stylet: yes Laryngoscope Blade: Bower Blade Size: 2 Cormack-Lehane Grade View: 1 Insertion Attempts: 1 Placement Verification: auscultation, en d tidal CO2 and symmetrical chest wall movement Assessment: pharynx clear, atraumatic an d dentition unchanged Secured at: 22 Measured From: lips Tooth guard used and removed: yes Difficulty: 0 (not difficult) Electronically signed by Kenan Mcfarlane CRNA Student ? Ancelmo Kendrick MD ANESTHESIA PX NOTE ORDERABLE S BRONCHOSCOPY (09/25/2021 3:03 PM CDT) Specimen (Source) Anatomical Collection Method Collection Time Re ceived Time Location / / Volume Laterality 09/25/2021 3:03 PM CDT Narrative This result has an attachment that is no t available. Transcriptions Amrita Block MD - 09/25/2021 5:53 PM C DT Patient Name: Nanci Coronel Procedure Juan e: 09/25/2021 Gender: Female Date of : 1965 Admit Type: Ambulatory Procedure: Bronchoscopy endobronchial ul trasound Proceduralist: Amrita Block MD - [facility] Referring MD: Derrick Bower MD Indications/Pre-Op Diagnosis: Abn CT sug gestive of sarcoidosis Medications: Episaline 1:100,000- 10 ml total Procedure Description: The need for, risks and the procedure w as explained to the patient and informed consent obtained. Patient was brought to the bronchoscopy suite, monitors placed and supplemental oxygen given. Procedure was done under general anesthesia. The bronchoscope 200 was introduced thr ough the mouth, via the endotracheal tube (the patient was intu bated for the procedure) and advanced to the tracheobronchial tree. Airway inspection completed. The bronchoscope loaner (# [id number]) was int roduced through the and advanced to the tracheobronchial tree, lymph nod e examination and intervention completed. The procedure was accomplish ed without difficulty. The patient tolerated the procedure well. Complications: No immediate complication s Estimated Blood Loss & Specimen: Estimated blood loss was minimal. Findings: Airway inspection- Distal trachea and bronchial tree WNL Right bronchial tree- marked thickening of carinas at RC2, and distally. The start of LLL bronchus appreared to be rim like. Distal RML bronchus with boggy mucosa and narrowin g of subsegments demetrius lateral. Cobblestoning appears to be present. Left bronchial tree- minimal mucosal th ickening Lymph node examination- Lymphadenopathy present at all stations (11L, 7, 4R, 11R) excpet 4L Intervention- EBUS FNA of nodes at station 11L, 7, 11 R in that order Random endobronchial biopsies from the right bronchial tree- involved mucosa SIMONE- scant lymphoid tissue Impression/Post-Op Diagonsis: - The airway examination was abnormal- see above for details. - FNA of lymph nodes and endobronchial biopsies Moderate Sedation: NA Recommendation: - Await biopsy and cytology results. Amrita Block MD 09/25/2021 5:53:28 PM This report has been signed electronical ly. Note Initiated On: 09/25/2021 3:03 PM Amrita Block MD PROCEDURE ORD SCAN-CARDIAC STRIP (09/25/2021 12:00 AM CDT) Narrative 09/25/2021 12:00 AM CDT This result has an attachment that is no t available. Ordered by an unspecified provider. Other Clinical Staff OTHER COVID 19 (09/20/2021 10:17 AM CDT) Analysis Performed At [facility] Time Signature COVID 19 Negative Negative 09/21/2021 [employer] [facility] 12:22 PM CDT LABORATORY-JOSE MOLECULAR TRAL LABORATORY Comment: All PCR tests are subject to fa lse negative result due to variability in viral load and collection technique. A n egative result does not rule out a SARS-CoV-2 infection. Clinical correlation required . Specimen Anatomical Location / Collection Method Collection Barrett e Received Time (Source) Laterality / Volume Other SPECIMEN FROM Non-Blood / 09/20/2021 10:17 09/20/2021 6:20 NASOPHARYNGEAL Unknown AM CDT PM CDT STRUCTURE / Unknown Narrative [facility] LABORATORY-CENTRAL LABORAT ORY - 09/21/2021 12:22 PM CDT This test has been authorized by FDA und er an Emergency Use Authorization (EUA). This test is only authorized for the duration of time the declaration that circumstances exist justifying the authorization of th e emergency use of in vitro diagnostic tests for detection of SARS-CoV-2 virus and/or diagnosis of COVID-19 infection under section 564(b)(1) of the Act, 21 U.S.C. 360bbb-3(b)(1), unless the authorization is terminated or revoked sooner. Humphrey Gracia MD MICROBIOLOGY Performing Organization Address City/[facility]/ZIP Code Phon e Number [facility] [address] [place] [address] LABORATORY-CENTRAL 2000 LABORATORY COVID 19 COLLECTION (09/20/2021 10:17 AM CDT) [facility] Method Time Signature TESTING [facility] 09/20/2021 [facility] LABORATORY Laboratory 6:20 PM CDT LABORATORY-CE NTRAL LABORATORY Comment: Specimen submitted to [facility] for testing. Specimen Anatomical Location / Collection Method Collection Barrett e Received Time (Source) Laterality / Volume Other SPECIMEN FROM Non-Blood / 09/20/2021 10:17 09/20/2021 NASOPHARYNGEAL Unknown AM CDT 10:30 AM CDT STRUCTURE / Unknown Humphrey Gracia MD SEND OUTS Performing Organization Address City/[facility]/ZIP [facility] Phon e Number [facility] [address] [place] [address] LABORATORY-CENTRAL 2000 LABORATORY US ABDOMEN LIMITED LIVER (09/12/2021 9:13 AM CDT) Anatomical Region Laterality Modality LIVER Ultrasound Specimen (Source) Anatomical Collection Method Collection Time Re ceived Time Location / / Volume Laterality 09/12/2021 9:44 AM CDT Impressions 09/12/2021 9:44 AM CDT Simple right hepatic lobe cyst measuring 1.6 cm. Status post cholecystectomy. No biliary obstruction. No right upper quadrant adenopathy. Dictated by Ashwin Webster MD @ Sep 12 2 022 ??9:44AM (Electronically Signed) ?? Narrative 09/12/2021 9:44 AM CDT For Patients: ??As a result of the Cures Act, medical imaging exams and procedure report s are released immediately into your [facility] medical record. ??You may view this report before your referring provider. ??If you have questions, please contact your health care provider. INDICATION: Adenopathy COMPARISON: CT chest 08/24/2021 TECHNIQUE: Real time ponce scale imaging and color D oppler analysis was performed of the right upper quadrant. FINDINGS: The patient`s liver is of normal size an d has uniform echogenicity. There is a simple cyst within the right hepatic lobe measuring 1.6 x 1.6 x 1.4 cm. There is a normal appearance of the hepatic IVC and proximal abdominal aorta. There is no e vidence of ascites. The gallbladder is surgically absent. The common bile duct is of normal size and measures 3 mm in diameter at the level of the praful hepatis. ??The visualized pancreas appears normal . ??There is no evidence of a stone or hydronephrosis within the right kidney. ??The right kidney measures 10.5 cm in length. ?? Procedure Note Ashwin Webster MD - 09/12/2021For matting of this note might be different from the original. For Patients: As a result of the Cures Act, medical imaging exams and procedure reports are released immediately into your electronic medical record. You may view this report before your referring provider. If you have questions, please contact [facility] health care provider. INDICATION: Adenopathy COMPARISON: CT chest 08/24/2021 TECHNIQUE: Real time ponce scale imaging and color D oppler analysis was performed of the right upper quadrant. FINDINGS: The patient`s liver is of normal size an d has uniform echogenicity. There is a simple cyst within the right hepatic lobe measuring 1.6 x 1.6 x 1.4 cm. There is a normal appearance of the hepatic IVC and proximal abdominal aorta. There is no evidence of ascites. The gallbladder is surgically absent. The common bile duct is of normal size and measures 3 mm in diameter at the level of the praful hepatis. The visualized pancreas appears normal. There is no evidence of a stone or hydronephrosis within the right kidney. The right kidney measures 10.5 cm in length. IMPRESSION: Simple right hepatic lobe cyst measuring 1.6 cm. Status post cholecystectomy. No biliary obstruction. No right upper quadrant adenopathy. Dictated by Ashwin Webster MD @ Sep 12 2 022 9:44AM (Electronically Signed) Derrick Bower MD COMPLETE PULMONARY FUNCTION TEST WITH BRONCHODILATOR (09/06/2021 2:00 PM CDT) Narrative [facility] - 09/06/2021 2:00 PM CDT Robbin Navarro MD ? 09/07/2021 ??2:06 PM PULMONARY FUNCTION TEST Complete PFT's, including spirometry wit h bronchodilator, measurement of lung volumes, and DLCO DATE OF SERVICE: September 06, 2021 DIAGNOSIS/REASON FOR TEST: Sarcoidosis; bronchiectasis FINDINGS: Pre bronchodilator Spirometry: ??Post br onchodilator Spirometry: FVC 3.08 L (80%) ?FVC 3.09 L (+0% ch slade from Pre) FEV1 2.36 L (78%) ?FEV1 2.36 L (+0% change from Pre) FEV1/FVC: 76.67% ?FEV1/FVC: 76.46% SVC 2.88 L (79%) IC 2.10 L (84%) ERV 0.78 L (70%) TGV 3.28 L (99%) RV 2.50 L (113%) TLC 5.38 L (92%) RV/TLC 46.44% DLCO unc 21.30 ml/min/mmHg (94%) DLCOcor 21.78 ml/min/mmHg (96%) HGB 12.7 gm/dL INTERPRETATION: 1. Low normal spirometry. 2. No bronchodilator effect. 3. Lung volumes are normal but there is mild air trapping. 4. Diffusing capacity is normal. Robbin Navarro MD Pulmonary Medicine [facility] Derrick Bower MD PFT ORD Performing Organization Address City/State/ZIP Code Phon e Number [facility] [place], [place] HISTOPLASMA QUANTITATIVE ANTIGEN (08/31/2021 9:44 AM CDT) [facility] Method Time Signature HISTOPLASMA AG None ng/mL [facility]20[facility]N RESULT Detected 2:08 PM CDT [facility] (CET) Comment: None Detected HISTOPLASMA AG QN INTERP Negative 09/08/2021 2:08 PM CDT [facility] (CET) Comment: Positive results reported in ng/mL from 0.20 ng/mL to 20.00 ng/mL Positive results above 20.00 ng/mL are r eported as Above the Limit of Quantification Specimen Anatomical Collection Method / Collection Time Recei ana lilia Time (Source) Location / Volume Laterality Other BLOOD SPECIMEN / Venipuncture / 08/31/2021 9:44 2021 9:48 Unknown Unknown AM CDT AM CDT Narrative [facility] (CET) - 09/08/2021 2:08 PM CDT Performed at: ??01 - [facility] [address] [place] [address], [place] ??46 [id number] Uniform Attendant: Josefina Loera MD, Phone: ?? [phone] Derrick Bower MD SEND OUTS Performing Organization Address City/State/ZIP Code Phon e Number [address] [address] ESOTERIC TESTING (CET) BLASTOMYCES ANTIGEN (08/31/2021 9:44 AM CDT) [facility] Method Time Signature MVISTA(R) None None 09/08/2021 [facility] BLASTOMYCES AG Detected Detected 2:08 PM CDT [place] - ng/mL [facility] (CET) Comment: Results reported as ng/mL in 0.2 - 14.7 ng/mL range Results above the limit of detection but below 0.2 ng/mL are reported as 'Positive, Below the Rodriguez it of Quantification' Results above 14.7 ng/mL are reported as 'Positive, Above the Limit of Quantification' SPECIMEN TYPE SERUM 09/08/2021 2:08 PM CDT [facility] (CE T) Specimen Anatomical Collection Method / Collection Time Recei ana lilia Time (Source) Location / Volume Laterality Other BLOOD SPECIMEN / Venipuncture / 08/31/2021 9:44 2021 9:48 Unknown Unknown AM CDT AM CDT [facility]ative [facility] ([facility] - 09/08/2021 2:08 PM CDT Performed at: ??01 - [facility] [address] [facility], [place] ??[address] [id number] Uniform Attendant: Josefina Loera MD, Phone: ?? [phone] Derrick Bower MD SEND OUTS Performing Organization Address City/State/ZIP Code Phon e Number [facility] [address] [place], [place] [address] ESOTERIC TESTING (CET) HISTOBLOOD CAPSULATUM ABS (08/31/2021 9:44 AM CDT) athologist Signature Histoplasma <1:8 <1:8 09/04/2021 [facility] Mycelial CF Ab 8:06 PM CDT [facility] (CET) Histoplasma <1:8 <1:8 09/04/2021 [facility] Yeast CF Ab 8:06 PM CDT [facility] ESOTERIC TESTING (CET) Comment: INTERPRETIVE INFORMATION: Histoplasma An tibodies by ?C omplement Fixation (CF) An antibody titer greater than or equal to 1:8 is generally considered presumptive evidence of histo plasmosis. Greater than 1:32 or rising titers indicate strong pr esumptive evidence of histoplasmosis. The yeast phase is regarded as more sens itive. Approximate 90-95 percent of cases have positive titers to one or both antigens. Titers to mycelial antigen are higher in chronic infection. Cross reactions, usually at lower titers, may occur with other fungal disease. Rising titers suggest progressi on of infection. Skin tests in individuals previously exposed may cause titer elevation in 17-20 percent of cases. Histoplasma Mycelial ID None Detected 09/04/2021 8 :06 PM [facility] - Ab CDT [facility] (CET) Comment: INTERPRETIVE INFORMATION: Histoplasma sp p. Antibodies by ?I mmunodiffusion The immunodiffusion test can detect prec ipitins to specific Histoplasma protein antigens (M and H). The M band often appears first and may occur without the H band. M precipitin is found in about 70 percent of ??both acute and chr onic histoplasmosis cases. Both M and H occur together in only abou t 10 percent of patients. REFERENCE RANGE: None Detected Specimen Anatomical Collection Method / Collection Time Recei ana lilia Time (Source) Location / Volume Laterality Blood BLOOD SPECIMEN / Venipuncture / 08/31/2021 9:44 2021 9:48 Unknown Unknown AM CDT AM CDT [facility] ESOTERIC TESTING (CET) - 09/04/2021 8:06 PM CDT Performed at: ??01 - [employer] [address] [place] [address] ??84 [id number] Uniform Attendant: Gema Mcgregor MD, Phone: ?? [phone] Derrick Bower MD SEND OUTS Performing Organization Address City/State/ZIP Code Phon e Number [address] [address] [facility]OTERIC TESTING (CET) BLASTOMYCES ABS QN DID (08/31/2021 9:44 AM CDT) [facility] Method Time Signature Blastomyces Abs Negative Neg:<1:1 09/03/2021 [facility] Qn DID 4:06 PM CDT [facility] ESOTERIC TESTING (CET) Specimen Anatomical Collection Method / Collection Time Recei ana lilia Time (Source) Location / Volume Laterality Blood BLOOD SPECIMEN / Venipuncture / 08/31/2021 9:44 2021 9:48 Unknown Unknown AM CDT AM CDT [facility] ESOTERIC TESTING (CET) - 09/03/2021 4:06 PM CDT Performed at: ??01 - [address] ??[id number] Uniform Attendant: Kevin Benson MD, Phone: ??[phone] Derrick Bower MD SEND OUTS Performing Organization Address [facility] Phon e Number [address] [address] ESOTERIC TESTING (CET) ANGIOTENSIN CONVERTING ENZYME (08/31/2021 9:44 AM CDT) athologist Signature STEFANIA 52 14 - 82 U/L [facility]/01/2021 [facility] 8:07 PM CDT [facility] ESOTERIC TESTING (CET) Specimen Anatomical Collection Method / Collection Time Recei ana lilia Time (Source) Location / Volume Laterality Blood BLOOD SPECIMEN / Venipuncture / 08/31/2021 9:44 2021 9:48 Unknown Unknown AM CDT AM CDT Narrative [facility] ESOTERIC TESTING (CET) - 09/01/2021 8:07 PM CDT Performed at: ??01 - [address] ??[id number] Uniform Attendant: Kevin Benson MD, Phone: ??[phone] Derrick Bower MD SEND OUTS Performing Organization Address [facility] Phon e Number [address] [address] ESOTERIC TESTING (CET) (ABNORMAL) CBC WITH AUTO DIFFERENTIAL (08/31/2021 9:44 AM CDT) Patholo gist Method Time Signature WHITE BLOOD 5.0 4.5 - 11.0 08/31/2021 [facility] COUNT thou/cu mm 10:07 AM CDT HOSPITAL LABORATORY RED BLOOD COUNT 4.58 4.00 - 08/31/2021 [facility] 5.20 10:07 AM CDT HOSPITAL mil/cu mm LABORATORY HEMOGLOBIN 12.7 12.0 - 08/31/2021 [facility] 16.0 g/dL 10:07 AM CDT [facility]OS[facility]ITAL LABORATORY HEMATOCRIT 38.6 33.0 - 08/31/2021 [facility] 51.0 % 10:07 AM CDT [facility]OS[facility]ITAL LABORATORY MCV 84 80 - 100 08/31/2021 [facility] fL 10:07 AM CDT [facility]OS[facility]ITAL LABORATORY MCH 27.7 26.0 - 08/31/2021 [facility] 34.0 pg 10:07 AM [facility] LABORATORY MCHC 32.9 32.0 - 08/31/2021 [facility] 36.0 g/dL 10:07 AM [facility] LABORATORY RDW 14.4 11.5 - 08/31/2021 [facility] 15.5 % 10:07 AM [facility] LABORATORY PLATELET COUNT 185 140 - 440 08/31/2021 [facility] thou/cu mm 10:07 AM [facility] LABORATORY MPV 9.7 6.5 - 11.0 08/31/2021 [facility] fL 10:07 AM [facility] LABORATORY NEUTROPHILS 75.6 % 08/31/2021 [facility] 10:07 AM [facility] LABORATORY LYMPHOCYTES 9.3 % 08/31/2021 [facility] 10:07 AM [facility] LABORATORY MONOCYTES 10.1 % 08/31/2021 [place] 10:07 AM [facility] LABORATORY EOSINOPHILS 3.6 % 08/31/2021 [facility] 10:07 AM [facility] LABORATORY BASOPHILS 1.0 % 08/31/2021 [facility] 10:07 AM [facility] LABORATORY IMMATURE 0.4 % 08/31/2021 [facility] GRANULOCYTES(MET 10:07 AM [facility] ,MYELOS,PROS) LABORATORY ABSOLUTE 3.8 1.7 - 7.0 08/31/2021 [facility] NEUTROPHILS thou/cu mm 10:07 AM [facility] LABORATORY ABSOLUTE 0.5 (L) 0.9 - 2.9 08/31/2021 [facility] LYMPHOCYTES thou/cu mm 10:07 AM [facility] LABORATORY ABSOLUTE 0.5 <0.9 08/31/2021 [facility] MONOCYTES thou/cu mm 10:07 AM [facility] LABORATORY ABSOLUTE 0.2 <0.5 08/31/2021 [facility] EOSINOPHILS thou/cu mm 10:07 AM [facility] LABORATORY ABSOLUTE 0.1 <0.3 08/31/2021 [facility] BASOPHILS thou/cu mm 10:07 AM [facility] LABORATORY ABSOLUTE 0.0 <0.3 08/31/2021 [facility] IMMATURE thou/cu mm 10:07 AM [facility] GRANULOCYTES(MET LABORATORY ,MYELOS,PROS) Specimen Anatomical Collection Method / Collection Time Recei ana lilia Time (Source) Location / Volume Laterality Blood BLOOD SPECIMEN / Venipuncture / 08/31/2021 9:44 2021 9:48 Unknown Unknown AM CDT AM CDT Derrick Bower MD HEMATOLOGY Performing Organization Address City/State/ZIP Code Phon e Number [facility] LABORATORY SENDOUT INTERNAL ZIP [place] [phone] [place] [address] (ABNORMAL) COMP METABOLIC PANEL (08/31/2021 9:44 AM CDT) [facility] Method Time Signature SODIUM 141 135 - 145 08/31/2021 [facility] mmol/L 10:33 AM [facility] LABORATORY POTASSIUM 3.6 3.5 - 5.0 08/31/2021 [facility] mmol/L 10:33 AM [facility] LABORATORY CHLORIDE 106 98 - 110 08/31/2021 [facility] mmol/L 10:33 AM [facility] LABORATORY CO2,TOTAL 26 21 - 31 08/31/2021 [facility] mmol/L 10:33 AM [facility] LABOR[facility]ORY ANION GAP 9 5 - 18 08/31/2021 [facility] 10:33 AM [facility] LABOR[facility]ORY GLUCOSE 102 (H) 65 - 100 08/31/2021 [facility] mg/dL 10:33 AM [facility] LABOR[facility]ORY CALCIUM 9.5 8.5 - 10.5 08/31/2021 [facility] mg/dL 10:33 AM [facility] LAB[facility] BUN 12 8 - 25 08/31/2021 [facility] mg/dL 10:33 AM [facility] LABORATORY CREATININE 0.92 0.57 - 08/31/2021 [facility] 1.11 mg/dL 10:33 AM [facility] LABOR[facility] BUN/CREAT RATIO 13 10 - 20 08/31/2021 [facility] 10:33 AM [facility] LAB[facility] ALBUMIN 3.8 3.5 - 5.2 08/31/2021 [facility] g/dL 10:33 AM [facility] LABOR[facility]ORY PROTEIN,TOTAL 6.6 6.0 - 8.0 08/31/2021 [facility] g/dL 10:33 AM [facility] LAB[facility] GLOBULIN 2.8 2.0 - 3.7 08/31/2021 [facility] g/dL 10:33 AM [facility] LABOR[facility] A/G RATIO 1.4 1.0 - 2.0 08/31/2021 [facility] 10:33 AM [facility] LAB[facility] BILIRUBIN,TOTAL 0.8 0.2 - 1.2 08/31/2021 [facility] mg/dL 10:33 AM [facility] LABORATORY ALK PHOSPHATASE 87 50 - 136 08/31/2021 [facility] IU/L 10:33 AM [facility] LAB[facility] ALT (SGPT) 10 8 - 45 08/31/2021 [facility] IU/L 10:33 AM [facility] LAB[facility] AST (SGOT) 15 2 - 40 08/31/2021 [facility] IU/L 10:33 AM [facility] LABOR[facility]ORY eGFR 72 (L) >90 08/31/2021 [facility] mL/min/1.7 10:33 AM [facility] 3m2 LABORATORY Comment: As of 2021, eGFR is calcu lated by the CKD-EPI creatinine equation without race adjustment. eGFR can be inf luenced by muscle mass, exercise, and diet. The reported eGFR is an estimation only and is only applicable if the renal function is stable. Specimen Anatomical Collection Method / Collection Time Recei ana lilia Time (Source) Location / Volume Laterality Blood BLOOD SPECIMEN / Venipuncture / 08/31/2021 9:44 2021 9:48 Unknown Unknown AM CDT AM CDT Derrick Bower MD CHEMISTRY Performing Organization Address City/State/ZIP Code Phon e Number [facility] SENDOUT INTERNAL ZIP [place], [place] [id number] [facility] CHEST WO (08/24/2021 4:00 PM CDT) Anatomical Region Laterality Modality CHEST, THORAX, HEART Computed Tomography Specimen (Source) Anatomical Collection Method Collection Time Re ceived Time Location / / Volume Laterality 08/25/2021 1:53 PM CDT Impressions 08/25/2021 1:53 PM CDT Innumerable bilateral pulmonary nodules and nodular consolidations, most of which show a peribronchovascular and perilymphatic distribution and likely a slight predilection for the upper and midlung zon es. There are also multiple prominent ly mph nodes including mediastinal, lower cervical, upper abdominal and likely perihilar although perihilar fullness may represent a combination of lymphadenopathy a nd perihilar consolidation incompletely evaluated on this noncontrast exam. Together, findings are likely secondary to an inflammatory process such as but not limited to sarcoidosis, infectious process, or less likely neoplastic process. Jose mmend pulmonary consultation. Recommend short-term follow-up chest CT given pulmonary nodules. Hypodense liver lesions measuring up to 1.4 centimeters incompletely evaluated on this noncontrast exam. Left atrial enlargement. Please note that all CT scans at this [facility] use dose modulation, iterative reconstruction, and/or weight-based dosing when appropriate to reduce radiation dose to as low as reasonably achievable. Dictated by Hazel Garcia MD @ Wilfred ??1 2021 ??1:53PM (Electronically Signed) ?? Narrative 08/25/2021 1:53 PM CDT For Patients: ??As a result of the Cures Act, medical imaging exams and procedure report s are released immediately into your [facility]. ??You may view this report before your referring provider. ??If you have questions, please contact your health care provider. INDICATION: [id number] TECHNIQUE: CT chest without contrast. COMPARISON: Chest radiograph 08/15/2021 FINDINGS: Multiple prominence mediastinal lymph no roxie. Fullness at the right greater than left rosa incompletely evaluated on this noncontrast exam likely representing hilar lymphadenopathy versus perihilar conso lidations or combination of the 2. Left atrium enlargement measures 5 centimeters anterior posterior. Mildly prominent lower cervical lymph nodes and upper abdominal lymph nodes. Hypodense liver lesions measuring up to 1.4 centimeters incompl etely evaluated on this exam. Bones are unremarkable for age. Fullness of the right rosa causes compre ssive narrowing at the right lower lobe and right middle lobe bronchi and there is subsegmental atelectasis peripherally. There are multiple bilateral ground-glas s and consolidative nodules ranging from 1 millimeter in size up to at least 1.4 centimeters. Nodules predominantly peribronchovascular distribution and are seen along the fissures as well. Very mild sc attered bronchiectasis is present. Inter lobular septal thickening within the dependent right lower lobe. Retraction of the major fissure. Procedure Note Hazel Garcia MD - 08/25/2021Form atting of this note might be different from the original. For Patients: As a result of the Cures Act, medical imaging exams and procedure reports are released immediately into your electronic medical record. You may view this report before your referring provider. If you have questions, please contact yo health care provider. INDICATION: [id number] TECHNIQUE: CT chest without contrast. COMPARISON: Chest radiograph 08/15/2021 FINDINGS: Multiple prominence mediastinal lymph no roxie. Fullness at the right greater than left rosa incompletely evaluated on this noncontrast exam likely representing hilar lymphadenopathy versus perihilar consolidations or combination of the 2. Left atrium enlarg ement measures 5 centimeters anterior posterior. Mildly prominent lower cervical lymph nodes and upper abdominal lymph nodes. Hypodense liver lesions measuring up to 1.4 centimeters incompletely evaluated on th is exam. Bones are unremarkable for age. Fullness of the right rosa causes compre ssive narrowing at the right lower lobe and right middle lobe bronchi and there is subsegmental atelectasis peripherally. There are multiple bilateral ground-glass and consolidative nodules ranging from 1 millimeter in siz e up to at least 1.4 centimeters. Nodules predominantly peribronchovascular distribution and are seen along the fissures as well. Very mild scattered bronchiectasis is present. Interlobular septal thickening within th e dependent right lower lobe. Retraction of the major fissure. IMPRESSION: Innumerable bilateral pulmonary nodules and nodular consolidations, most of which show a peribronchovascular and perilymphatic distribution and likely a slight predilection for the upper and midlung zones. There are also multiple prominent lymph nodes incl uding mediastinal, lower cervical, upper abdominal and likely perihilar although perihilar fullness may represent a combination of lymphadenopathy and perihilar consolidation incompletely evaluated on this noncontra st exam. Together, findings are likely secondary to an inflammatory process such as but not limited to sarcoidosis, infectious process, or less likely neoplastic process. Recommend pulmonary consultation. Recomm end short-term follow-up chest CT given pulmonary nodules. Hypodense liver lesions measuring up to 1.4 centimeters incompletely evaluated on this noncontrast exam. Left atrial enlargement. Please note that all CT scans at this [facility] use dose modulation, iterative reconstruction, and/or weight-based dosing when appropriate to reduce radiation dose to as low as reasonably achievable. 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
--- NOTE | 2021-11-18 00:32 | CRLHL7_ITS ---
For Patients: As a result of the Century Cures Act, medical imaging exams and procedure reports are released immediately into your electronic medical record. You may view this report before your referring provider. If you have questions, please contact your health care provider. INDICATION: Chest pain. TECHNIQUE: Chest 1 view. COMPARISON: 09/29/2021. FINDINGS: Cardiovascular and mediastinum: Heart size and vasculature are normal in caliber and appearance. Lungs and pleural spaces: Lungs are clear. No sign of infiltrate or mass. No sign of pleural effusion. No pneumothorax. Bones and soft tissues: No significant findings. IMPRESSION: No acute abnormality or significant interval change. Dictated by Kashif Page MD @ 11/18/2021 1:08:48 AM (Electronically Signed)
--- NOTE | 2021-11-18 00:33 | ED.CHESTPAIN ---
HPI - Chest Pain General Chief Complaint: Chest Pain Stated Complaint: Chest Pain Time Seen by Provider: 11/18/21 00:19 History of Present Illness HPI narrative: 56-year-old woman presenting to the emergency department with complaint of mid sternal chest pain quite severe that occurred at rest watching TV. She had eaten about 5 hours prior. Does have a history of extensive premature ventricular contractions having been seen recently in this emergency department. In the interim has been diagnosed with cardiac sarcoidosis and initiated on prednisone. She does have a history of GERD but this was unlike any GERD she has experienced. She had thought that perhaps since initiating prednisone which has helped a great deal with her PVCs, might 1 0 be taking omeprazole for reflux history but has not been recalling to take it regularly. Otherwise was in usual state of health. No fevers. No cough cold symptoms. She is demonstrating a little labored breathing here. EMS treated 8/10 pain with giving aspirin. Pain currently actually is quite low she says and does not feel she needs any medication including declining offer of nitro. History migraines Mother with arrhythmia (atrial fibrillation?) Father with cardiovascular disease with 1st MD in his 70s. History of stents Related Data Home Medications Medication Instructions Recorded Confirmed mometasone-formoterol HFA 50 mcg-5 2 inh inhalation BID 09/29/21 09/29/21 mcg/actuation aerosol inhaler (Dulera) nortriptyline 10 mg capsule 20 mg PO DAILY 09/29/21 09/29/21 quetiapine 25 mg tablet 25 mg PO DAILY 09/29/21 09/29/21 Allergies Allergy/AdvReac Type Severity Reaction Status Date / Time Sulfa (Sulfonamide Allergy Nausea Verified 09/29/21 00:22 Antibiotics) Review of Systems Status of ROS Reports: 10 or more systems reviewed and unremarkable except as noted in History and below PFSH PFS Social History Smoking Status: Never smoker Do you use any of these nicotine containing products: None Second hand tobacco smoke exposure: No How often do you have a drink containing alcohol: never How often do you have six or more drinks on one occasion: Never AUDIT-C Alcohol total score: 0 Non-prescribed substance use: denies use service: No Exam Narrative Exam Narrative: Initially a little labored in breathing. This would occur periodically as well with re-evaluation. No distress otherwise. Cranial nerves 2-12 intact. Lungs are clear Neck is supple. No JVD appreciated. Abdomen is overweight soft nontender Moving all extremities without difficulty. No edema. Skin is warm and dry. No apparent rash. Const Vital Signs, click to edit/add: Vital Signs - 24 hr 11/18/21 00:03 11/18/21 00:35 11/18/21 00:37 Temperature 98.3 F Pulse Rate 67 Pulse Rate [Left Pulse Oximeter] 74 Respiratory Rate 16 Blood Pressure Blood Pressure [Right Upper Arm] 147/81 H Pulse Oximetry 97 97 95 Oxygen Delivery Method Room Air 11/18/21 00:45 11/18/21 00:47 11/18/21 01:00 Temperature Pulse Rate 67 55 L 77 Pulse Rate [Left Pulse Oximeter] Respiratory Rate Blood Pressure 130/79 Blood Pressure [Right Upper Arm] Pulse Oximetry 97 94 97 Oxygen Delivery Method 11/18/21 01:02 11/18/21 01:15 11/18/21 01:17 Temperature Pulse Rate 68 63 70 Pulse Rate [Left Pulse Oximeter] Respiratory Rate Blood Pressure 138/83 132/79 Blood Pressure [Right Upper Arm] Pulse Oximetry 98 97 93 Oxygen Delivery Method 11/18/21 01:30 11/18/21 01:32 11/18/21 01:45 Temperature Pulse Rate 71 72 66 Pulse Rate [Left Pulse Oximeter] Respiratory Rate Blood Pressure 126/68 Blood Pressure [Right Upper Arm] Pulse Oximetry 97 95 94 Oxygen Delivery Method 11/18/21 01:47 11/18/21 02:00 11/18/21 02:02 Temperature Pulse Rate 64 69 70 Pulse Rate [Left Pulse Oximeter] Respiratory Rate Blood Pressure 127/74 124/68 Blood Pressure [Right Upper Arm] Pulse Oximetry 96 95 96 Oxygen Delivery Method 11/18/21 02:15 11/18/21 02:17 Temperature Pulse Rate 65 68 Pulse Rate [Left Pulse Oximeter] Respiratory Rate Blood Pressure 131/82 Blood Pressure [Right Upper Arm] Pulse Oximetry 95 97 Oxygen Delivery Method Documenting provider has reviewed patient's vital signs: yes Course Course Hospital Course: Declined all offered interventions including fluids, other than cardiac monitoring. Reevaluation(s) Reevaluation #1: Chest pain resolved. Had been requesting departure. Vital Signs Vital signs: Initial Vital Signs Temperature 98.3 F 11/18/21 00:03 Temperature Source Temporal Artery Scan 11/18/21 00:03 Pulse Rate 74 11/18/21 00:03 Pulse Rhythm 11/18/21 00:03 Respiratory Rate 16 11/18/21 00:03 Blood Pressure 147/81 H 11/18/21 00:03 Blood Pressure Mean 103 11/18/21 00:03 Blood Pressure Position Semi-Fowlers 11/18/21 00:03 Pulse Oximetry 97 11/18/21 00:03 Oxygen Delivery Method 11/18/21 00:03 Vital Signs Temperature 98.3 F 11/18/21 00:03 Pulse Rate 74 11/18/21 00:03 Respiratory Rate 16 11/18/21 00:03 Blood Pressure 147/81 H 11/18/21 00:03 Pulse Oximetry 97 11/18/21 00:03 Oxygen Delivery Method 11/18/21 00:03 Temperature 98.3 F 11/18/21 00:03 Pulse Rate 68 11/18/21 02:17 Respiratory Rate 16 11/18/21 00:03 Blood Pressure 131/82 11/18/21 02:17 Pulse Oximetry 97 11/18/21 02:17 Oxygen Delivery Method 11/18/21 00:03 MDM - Chest Pain MDM Narrative Medical decision making narrative: GI cocktail trial is acceptable to Ms. Rice. Medical Records Data Attestation: I reviewed the patient's medical records. Lab Data Attestation: I reviewed the patient's lab results. Labs: Lab Results 11/18/21 11/18/21 11/18/21 Range/Units 00:25 00:25 00:25 WBC 10.62 (4.50-11.00) K/uL RBC 4.57 (4.00-5.20) m/uL Hgb 12.9 (12.0-16.0) gm/dL Hct 39.5 (33.0-51.0) % MCV 86 (80-100) fL MCH 28 (26-34) pg MCHC 33 (32-36) gm/dL RDW Coeff of Cordelia 15.4 (11.5-15.5) % Plt Count 240 (140-440) K/uL Neut % (Auto) 80.6 H (42.0-72.0) % Lymph % (Auto) 5.9 L (20-44) % Colbert % (Auto) 10.1 (0.0-11.0) % Eos % (Auto) 1.1 (0.0-7.0) % Baso % (Auto) 0.1 (0.0-3.0) % Neut # (Auto) 8.60 H (1.7-7.0) K/uL Lymph # (Auto) 0.60 L (0.90-2.90) K/uL Colbert # (Auto) 1.10 H (0.00-0.90) K/UL Eos # (Auto) 0.12 (0.00-0.50) K/uL Baso # (Auto) 0.01 (0.00-0.30) K/uL Abs Immat Gran (auto) 0.23 (0.00-0.30) K/uL D-Dimer Quant (PE/DVT) (0.00-0.50) ug/ml Sodium 139 (135-149) mmol/L Potassium 3.4 L (3.6-5.1) mmol/L Chloride 105 (96-114) mmol/L Carbon Dioxide 28 (20-32) mmol/L BUN 14 (7-30) mg/dL Creatinine 0.9 (0.5-1.5) mg/dL Estimated GFR 74 ml/min Glucose 141 H (60-115) mg/dL Calcium 9.5 (8.4-10.6) mg/dL Magnesium 2.0 (1.5-2.6) mg/dL Total Bilirubin 0.3 (0.1-1.5) mg/dL Direct Bilirubin 0.0 (0.0-0.5) mg/dL AST 20 (12-35) U/L ALT 21 (4-35) U/L Alkaline Phosphatase 125 (40-150) U/L Troponin I < 0.01 L (0.01-0.04) ng/mL C-Reactive Protein < 0.5 L (0.5-1.0) mg/dL NT-Pro-B Natriuret Pep 88 (0-125) PG/mL Total Protein 5.9 L (6.0-8.3) g/dL Albumin 3.5 (3.3-5.0) g/dL Lipase 68 (23-300) U/L POC Troponin I (0.01-0.04) ng/ml 11/18/21 11/18/21 11/18/21 Range/Units 00:33 02:03 03:33 WBC (4.50-11.00) K/uL RBC (4.00-5.20) m/uL Hgb (12.0-16.0) gm/dL Hct (33.0-51.0) % MCV (80-100) fL MCH (26-34) pg MCHC (32-36) gm/dL RDW Coeff of Cordelia (11.5-15.5) % Plt Count (140-440) K/uL Neut % (Auto) (42.0-72.0) % Lymph % (Auto) (20-44) % Colbert % (Auto) (0.0-11.0) % Eos % (Auto) (0.0-7.0) % Baso % (Auto) (0.0-3.0) % Neut # (Auto) (1.7-7.0) K/uL Lymph # (Auto) (0.90-2.90) K/uL Colbert # (Auto) (0.00-0.90) K/UL Eos # (Auto) (0.00-0.50) K/uL Baso # (Auto) (0.00-0.30) K/uL Abs Immat Gran (auto) (0.00-0.30) K/uL D-Dimer Quant (PE/DVT) 0.28 (0.00-0.50) ug/ml Sodium (135-149) mmol/L Potassium (3.6-5.1) mmol/L Chloride (96-114) mmol/L Carbon Dioxide (20-32) mmol/L BUN (7-30) mg/dL Creatinine (0.5-1.5) mg/dL Estimated GFR ml/min Glucose (60-115) mg/dL Calcium (8.4-10.6) mg/dL Magnesium (1.5-2.6) mg/dL Total Bilirubin (0.1-1.5) mg/dL Direct Bilirubin (0.0-0.5) mg/dL AST (12-35) U/L ALT (4-35) U/L Alkaline Phosphatase (40-150) U/L Troponin I (0.01-0.04) ng/mL C-Reactive Protein (0.5-1.0) mg/dL NT-Pro-B Natriuret Pep (0-125) PG/mL Total Protein (6.0-8.3) g/dL Albumin (3.3-5.0) g/dL Lipase (23-300) U/L POC Troponin I 0.01 0.00 L (0.01-0.04) ng/ml ECG Data Attestation: I personally reviewed and interpreted this ECG as follows: (Sinus rhythm at rate of 70. PACs) Discharge Plan Discharge Clinical Impression: PVC (premature ventricular contraction), Chest pain Patient Disposition: Home w/ Parent or Adult Condition: Improved Additional Instructions: Return for persistent recurrence of pain, particularly if associated with lightheadedness or shortness of breath. Otherwise stay well hydrated. Follow-up as planned early this coming week. Please have a emilia weekend. Prescriptions: No Action nortriptyline 10 mg capsule 20 mg PO DAILY quetiapine 25 mg tablet 25 mg PO DAILY Dulera 50-5 mcg/actuation HFA aerosol inhaler 2 inh inhalation BID Follow Up/Referrals: Gayathri Carroll PA-C [Primary Care Provider] - Stand Alone Forms: [place] [facility] Info Instructions
[2021-11-18 00:41] LABS: Troponin, Point-of-Care* 0.01 ng/ml (0.01-0.04)
[2021-11-18 00:44] LABS: Basophils Absolute Auto 0.01 K/uL (0.00-0.30); Basophils Percent Auto 0.1 % (0.0-3.0); Eosinophils Absolute Auto 0.12 K/uL (0.00-0.50); Eosinophils Percent Auto 1.1 % (0.0-7.0); Hematocrit 39.5 % (33.0-51.0); Hemoglobin* 12.9 gm/dL (12.0-16.0); Immature Granulocytes Abs Auto 0.23 K/uL (0.00-0.30); Lymphocytes Percent Auto 5.9 % (20-44); Mean Corpuscular HGB Conc 33 gm/dL (32-36); Mean Corpuscular Hemoglobin 28 pg (26-34); Mean Corpuscular Volume 86 fL (80-100); Monocytes Percent Auto 10.1 % (0.0-11.0); Neutrophils Percent Auto 80.6 % (42.0-72.0); Platelet Count* 240 K/uL (140-440); RDW Coefficient of Variation % 15.4 % (11.5-15.5); Red Blood Count 4.57 m/uL (4.00-5.20); White Blood Count* 10.62 K/uL (4.50-11.00)
[2021-11-18] MEDS: GI COCKTAIL (VISC LIDO/ANTACID) 30 ML PO (00:44)
[2021-11-18 00:47] LABS: Slide Review Reflex No
[2021-11-18 00:59] LABS: Albumin* 3.5 g/dL (3.3-5.0)
[2021-11-18 01:00] LABS: Chloride* 105 mmol/L (96-114); Sodium* 139 mmol/L (135-149)
[2021-11-18 01:01] LABS: Potassium* 3.4 mmol/L (3.6-5.1)
[2021-11-18 01:02] LABS: Alkaline Phosphatase* 125 U/L (40-150); Aspartate Amino Transferase* 20 U/L (12-35); Bilirubin Total* 0.3 mg/dL (0.1-1.5); Lipase* 68 U/L (23-300); Total Protein* 5.9 g/dL (6.0-8.3)
[2021-11-18 01:03] LABS: Alanine Aminotransferase* 21 U/L (4-35); Creatinine* 0.9 mg/dL (0.5-1.5); Estimated Glomerular Filt Rate 74 ml/min
[2021-11-18 01:04] LABS: Blood Urea Nitrogen* 14 mg/dL (7-30); Calcium* 9.5 mg/dL (8.4-10.6); Carbon Dioxide* 28 mmol/L (20-32); Glucose* 141 mg/dL (60-115)
[2021-11-18 01:12] LABS: C Reactive Protein* < 0.5 mg/dL (0.5-1.0)
[2021-11-18 01:13] LABS: NT Pro B Type NatriureticPept* 88 PG/mL (0-125)
[2021-11-18 01:16] LABS: Troponin I* < 0.01 ng/mL (0.01-0.04)
--- OUTSIDE RECORDS SUMMARY | 2021-11-18 01:30 | XMS_ITS | Clinical Summary ---
:1965 Author Organization [employer] [place] [address] Care Team Providers Name Role Phone [employer] Primary Care Provider Allergies Active Allergy Reactions [...] Sandoval, Kenan Alcazar CRNA Student 09/25/2021 Surgery Amrita Block MD BRONCHOSCO PY ENDOBRONCHIAL U LTRASOUND 09/25/2021 Hospital Encounter Amrita Block MD 09/25/2021 Travel 09/20/2021 Preop Visit Humphrey Gracia Preoperative Exam MD Mack (Bronchoscopy , Dr. Block, [employer]); Medication List Update (Not taking Marcelino vent [...] 12/25/2021 Office Visit Derrick Bower MD [address] [address] (Wo rk) Health Maintenance Due Date Last Done Comments Pneumococcal series for age 19-64 1969 (1 - PCV) Depression screening for age 12+ 1975 Zoster (shingles) series for age 0204/07/2013 50+ (1 of 2) Mammogram for age 45-75 08/10/2021 08/10/2020 (Completed ou tside of [facility]) Influenza for age 50-64 10/26/2021 04/21/2020 BMI (ht and wt on same day) for 09/20/2022 09/20/2021, 0708/2021, age 18+ 08/15/2021, Additional history exists Tetanus booster 09/03/2023 09/02/2013 Colonoscopy through age 75 10/26/2024 10/26/2014 (Completed outside of [facility]) Lipids for age 45-75 05/22/2026 05/22/2021 Pap [...] i n the results section. PATH NON TRAIN OPERATOR CYTOLOGY Today 09/25/2021 3:37 PM Results for [...] AM CDT Narrative 10/12/2021 2:15 PM CDT ?[facility] ? CMR Report ??MRN: ?[id number] ?Name: ?CORONEL, NANCI L ?: ?1966-0 2-11 [...] ba sed on T2 parametric imaging. - Circle T1 is borderline/mildly elevate d. - Normal [...] Apical Lateral ? None ? Normal ? [place] ? None ? Normal ? + + + + +------ + RV Segments ? Wall Motion Hyperenhancement Stress Perfusion Interpretation + + + + +------ + RV Basal Anterior ? RV Basal Inferior ? RV Mid ? RV Apical ? ' + + + +------ ' ?FINDINGS ?LV SCAR SIZE (17 SEGMENT): ? ?2 % SCAN INFO GENERAL -------- ?SCANNER ?BELT BACK OPERATOR: ??SIEMENS ?MODEL: ??Avanto_fit ?CONTRAST AGENT ?GD CONCENTRATION: ??1.0 M ?VOLUME ADMINISTERED: ??10 ml ?DOSAGE: ??0.10 mmol/kg ?SETUP ?REFERRING PHYSICIAN: ??LESA GREENBERG ?ATTENDING PHYSICIAN: ??LESA GREENBERG BILLING Patient Account ?[id number] ICD10 Codes ?D86.85 Report generated by walker Melendez of [employer] Procedure Note Red Garcia MD - 10/12/2021Format ting of this note might be different from the original. [facility] CMR Report Name: NANCI CORONEL : 1965 [...] ba sed on T2 parametric imaging. - Circle T1 is borderline/mildly elevate d. - Normal [...] Inferior None Normal Apical Lateral None Normal [place] None Normal + + + + +------ + RV Segments Wall Motion Hyperenhan cement Stress Perfusion Interpretation + + + + +------ + RV Basal Anterior RV Basal Inferior RV Mid RV Apical ' + + + +------ ' FINDINGS ------- LV SCAR SIZE (17 SEGMENT): 2 % SCAN INFO GENERAL -------- SCANNER ------- BELT BACK OPERATOR: SIEMENS MODEL: Avanto_fit CONTRAST AGENT ------- GD CONCENTRATION: 1.0 M VOLUME ADMINISTERED: 10 ml DOSAGE: 0.10 mmol/kg SETUP ------- REFERRING PHYSICIAN: LESA GREENBERG ATTENDING PHYSICIAN: LESA GREENBERG BILLING Patient Account [id number] ICD10 Codes D86.85 Report generated by walker Melendez of [employer] Lesa Greenberg MD MR HEMATOCRIT/HGB,ISTAT (10/12/2021 7:46 AM CDT) P athologist Signature HEMATOCRIT, 43.0 33.0 - 10/12/2021 [facility] POCT 51.0 % 7:51 AM CDT LABORATORY HEMOGLOBIN, 14.6 12.0 - 10/12/2021 [facility] POCT 16.0 g/dL 7:51 AM CDT LABORATORY Specimen Anatomical Collection Method Collection Time Receive d Time (Source) Location / / Volume Laterality Blood BLOOD SPECIMEN / 10/12/2021 7:46 AM 10/12 7:50 Unknown CDT AM CDT Lesa Greenberg MD CHEMISTRY Performing Organization Address City/State/ZIP Code Phon e Number [facility] SENDOUT INTERNAL ZIP [place], [place] [phone] [facility] SCAN-RADIOLOGY REPORT (09/29/2021 12:00 AM CDT) Narrative This result has an attachment that is no t available. Scanner OTHER PATH TISSUE EXAM (09/25/2021 4:20 PM CDT) Component Value Ref Test Analysis Performed At [facility] gist Range Method Time Signature Case Report Pathology Report ?Case: [id number] ? 09/27/2021 JOCELYNINA Authorizing Provider: ??Amrita Mo ma, MD ?Collected: ? 09/25/2021 1620 ? 4:33 PM HEAL TH Ordering Location: ? [facility] ?Received: ?09/26/2021 0744 ? CDT RAMANDEEP CORRIGAN [...] 4:33 PM HEALTH CDT LABORATORY-C See case [id number] the EBUS lymph node sampling. ENTRAL LABORATORY Clinical 56-year-old 09/27/2021 [facility] Information female with 4:33 PM HEALTH adenopathy. CDT LABORATORY-C ENTRAL LABORATORY Gross A) Received in formalin, lab eled with the patient's name and right random lung biopsy, are several cylindrical scant friable lopez-white focally hemorrhagic tissue cores and scant blood clot, ranging 0. 09/27/2021 BETHEL Description 1-0.8 cm long, 0.1 cm diamet [...] Negative Additional 09/27/2021 [facility] Information Interpreted at [facility], Central Laboratory - [address], [place] [address] 4:33 PM HEALTH CDT LABORATORY-C ENTRAL LABORATORY Specimen Anatomical Collection Method Collection Time Receive d Time (Source) Location / / Volume Laterality Biopsy SPECIMEN FROM LUNG 09/25/2021 4:20 PM 03/2021 7:44 / Unknown CDT AM CDT Amrita Block MD PATHOLOGY/CYTOLOGY Performing Organization Address City/State/ZIP Code Phon e Number [facility] [address] [place] [address] LABORATORY-CENTRAL [address] LABORATORY [facility] SENDOUT INTERNAL ZIP [place] [id number] [place] [address] PATH NON TRAIN OPERATOR CYTOLOGY (09/25/2021 3:37 PM CDT) Component Value Ref Test Analysis Performed At [facility] gist Range Method Time Signature Case Report Medical Cytology Report ? Case: [id number] ? 09/27/2021 [facility] Authorizing Provider: ??Amrita Mo ma, MD ?Collected: ? 09/25/2021 1537 ? 1:55 PM HEAL TH Ordering Location: ? [facility] ?Received: ?09/25/2021 1631 ? CDT [place] IGNACIO-C [...] PM HEALTH Please see concurrent surgical biopsy, [id number]. CDT LABORATORY-C ENTRAL LABORATORY Gross 09/27/2021 [facility] [...] with an impression of Not Adequate. 2021 [facility] B) [facility] assessed adequacy fro m the [...] ENTRAL LABORATORY Additional Cytology is screened at [facility], Central Laboratory - [address], [place] [address] and [facility] - [address], [place] [address] and 09/27/2021 [facility] Information [facility] Laboratory - [address] [place] [address] 1:55 PM HEALTH CDT LABORATORY-C ENTRAL Interpreted at [facility], Central Laboratory - [address], [place] [address] LABORATORY Specimen (Source) Anatomical Collection Method Collection [...] Organization Address City/State/ZIP Code Phon e Number [facility] [address] [place] [address] LABORATORY-CENTRAL 2000 LABORATORY [facility] SENDOUT INTERNAL ZIP [place], [place] [address] [place] [address] ETT (09/25/2021 3:32 PM CDT) Narrative Kenan [...] ul trasound Proceduralist: Amrita Block MD - [facility] Referring MD: Derrick Bower MD Indications/Pre-Op Diagnosis: [...] Airway inspection completed. The bronchoscope loaner (# [id number]) was int roduced through the and advanced [...] (09/20/2021 10:17 AM CDT) Analysis Performed At [facility] Time Signature COVID 19 Negative Negative 09/21/2021 [employer] [facility] 12:22 PM CDT LABORATORY-JOSE MOLECULAR TRAL [...] CDT PM CDT STRUCTURE / Unknown Narrative [facility] LABORATORY-CENTRAL LABORAT ORY - 09/21/2021 12:22 PM [...] Humphrey Gracia MD MICROBIOLOGY Performing Organization Address City/[facility]/ZIP Code Phon e Number [facility] [employer] [address] [place] [address] LABORATORY-CENTRAL 2000 LABORATORY COVID 19 COLLECTION (09/20/2021 10:17 AM CDT) [facility] Method Time Signature TESTING [facility] 09/20/2021 [facility] LABORATORY Laboratory 6:20 PM CDT LABORATORY-CE NTRAL LABORATORY Comment: Specimen submitted to [facility] Laboratory for testing. Specimen Anatomical Location / Collection Method Collection Barrett e Received Time (Source) Laterality / Volume Other SPECIMEN FROM Non-Blood / 09/20/2021 10:17 09/20/2021 NASOPHARYNGEAL Unknown AM CDT 10:30 AM CDT STRUCTURE / Unknown Humphrey Gracia MD SEND OUTS Performing Organization Address City/[facility]/ZIP [facility] Phon e Number [facility] [employer] [address] [address] LABORATORY-CENTRAL 2000 LABORATORY US ABDOMEN LIMITED LIVER [...] s are released immediately into your [facility] medical record. ??You may view this report [...] provider. If you have questions, please contact [facility] health care provider. INDICATION: Adenopathy COMPARISON: [...] is normal. Robbin Navarro MD Pulmonary Medicine [facility] [address] Derrick Bower MD PFT ORD Performing Organization Address City/State/ZIP Code Phon e Number [facility] [place], [place] HISTOPLASMA QUANTITATIVE ANTIGEN (08/31/2021 9:44 AM CDT) [facility] Method Time Signature HISTOPLASMA AG None ng/mL 09/08/2021 [facility] QN RESULT Detected 2:08 PM CDT [facility] FOR ESOTERIC TESTING (CET) Comment: None Detected HISTOPLASMA AG QN INTERP Negative 09/08/2021 2:08 PM CDT [facility] FOR ESOTERIC TESTING (CET) Comment: Positive results reported in ng/mL from 0.20 ng/mL to 20.00 ng/mL Positive results above 20.00 ng/mL are r eported as Above the Limit of Quantification Specimen Anatomical Collection Method / Collection Time Recei ana lilia Time (Source) Location / Volume Laterality Other BLOOD SPECIMEN / Venipuncture / 08/31/2021 9:44 2021 9:48 Unknown Unknown AM CDT AM CDT Narrative [facility] FOR ESOTERIC TESTING (CET) - 09/08/2021 2:08 PM CDT Performed at: ??01 - [email or web address] [address] [place] [address], [place] ??[phone] [id number] [employer] Operator: Josefina Loera MD, Phone: ?? [phone] Derrick Bower MD SEND OUTS Performing Organization Address City/State/ZIP Code Phon e Number [address] [address] ESOTERIC TESTING (CET) BLASTOMYCES ANTIGEN (08/31/2021 9:44 AM CDT) [facility] Method Time Signature MVISTA(R) None None 09/08/2021 [facility] BLASTOMYCES AG Detected Detected 2:08 PM CDT [place] - ng/mL [facility] ESOTERIC TEST[facility] (CET) Comment: Results reported as ng/mL in 0.2 - 14.7 ng/mL range Results above the limit of detection but below 0.2 ng/mL are reported as 'Positive, Below the Rodriguez it of Quantification' Results above 14.7 ng/mL are reported as 'Positive, Above the Limit of Quantification' SPECIMEN TYPE SERUM 09/08/2021 2:08 PM CDT LAB [facility] FOR ESOTERIC TESTING (CE T) Specimen Anatomical Collection Method / Collection Time Recei ana lilia Time (Source) Location / Volume Laterality Other BLOOD SPECIMEN / Venipuncture / 08/31/2021 9:44 2021 9:48 Unknown Unknown AM CDT AM CDT Narrative [facility] ESOTERIC TESTING (CET) - 09/08/2021 2:08 PM CDT Performed at: ??01 - [employer] [address] [facility], [place] ??[phone] [id number] [employer] Operator: Josefina Loera MD, Phone: ?? [phone] Derrick Bower MD SEND OUTS Performing Organization Address City/State/ZIP Code Phon e Number [facility] FOR [address] [place], [place] [address] ESOTERIC TESTING (CET) HISTOBLOOD CAPSULATUM ABS (08/31/2021 9:44 AM CDT) athologist Signature Histoplasma <1:8 <1:8 09/04/2021 [facility] Mycelial CF Ab 8:06 PM CDT [facility] FOR ESOTERIC TESTING (CET) Histoplasma <1:8 <1:8 09/04/2021 [facility] Yeast CF Ab 8:06 PM CDT [facility] ESOTERIC TESTING (CET) Comment: INTERPRETIVE INFORMATION: Histoplasma [...] ID None Detected 09/04/2021 8 :06 PM [facility] - Ab CDT [facility] FOR ESOTERIC TESTING (CET) Comment: INTERPRETIVE INFORMATION: [...] 9:48 Unknown Unknown AM CDT AM CDT [facility] ESOTERIC TESTING (CET) - 09/04/2021 8:06 PM CDT Performed at: ??01 - [employer] [address] [place] [address] ??[phone] [employer] Operator: Gema Mcgregor MD, Phone: ?? [phone] Derrick Bower MD SEND OUTS Performing Organization Address City/State/ZIP Code Phon e Number [address] [address] ESOTERIC TESTING (CET) BLASTOMYCES ABS QN DID (08/31/2021 9:44 AM CDT) [facility] Method Time Signature Blastomyces Abs Negative Neg:<1:1 09/03/2021 [facility] Qn DID 4:06 PM CDT [facility] ESOTERIC TESTING (CET) Specimen Anatomical Collection Method / Collection Time Recei ana lilia Time (Source) Location / Volume Laterality Blood BLOOD SPECIMEN / Venipuncture / 08/31/2021 9:44 2021 9:48 Unknown Unknown AM CDT AM CDT [facility] ESOTERIC TESTING (CET) - 09/03/2021 4:06 PM CDT Performed at: ??01 - [address] ??[id number] [employer] Operator: Kevin Benson MD, Phone: ??[phone] Derrick Bower MD SEND OUTS Performing Organization Address [facility] Phon e Number [address] [address] ESOTERIC TESTING (CET) ANGIOTENSIN CONVERTING ENZYME (08/31/2021 9:44 AM CDT) athologist Signature STEFANIA 52 14 - 82 U/L 09/01/2021 [facility] 8:07 PM CDT [facility] ESOTERIC TESTING (CET) Specimen Anatomical Collection Method / Collection Time Recei ana lilia Time (Source) Location / Volume Laterality Blood BLOOD SPECIMEN / Venipuncture / 08/31/2021 9:44 2021 9:48 Unknown Unknown AM CDT AM CDT Narrative [facility] ESOTERIC TESTING (CET) - 09/01/2021 8:07 PM CDT Performed at: ??01 - [address] ??[id number] [employer] Operator: Kevin Benson MD, Phone: ??[phone] Derrick Bower MD SEND OUTS Performing Organization Address [facility] Phon e Number [address] 2 [address] ESOTERIC TESTING (CET) (ABNORMAL) CBC WITH AUTO [...] - 08/31/2021 [facility] 34.0 pg 10:07 AM [facility] MCHC 32.9 32.0 - 08/31/2021 [facility] 36.0 g/dL 10:07 AM [facility] RDW 14.4 11.5 - 08/31/2021 [facility] 15.5 % 10:07 AM [facility] PLATELET COUNT 185 140 - 440 08/31/2021 [facility] thou/cu mm 10:07 AM [facility] MPV 9.7 6.5 - 11.0 08/31/2021 [facility] fL 10:07 AM [facility] NEUTROPHILS 75.6 % 08/31/2021 [facility] 10:07 AM [facility] LYMPHOCYTES 9.3 % 08/31/2021 [facility] 10:07 AM [facility] MONOCYTES 10.1 % 08/31/2021 [facility] 10:07 AM [facility] EOSINOPHILS 3.6 % 08/31/2021 [facility] 10:07 AM [facility] BASOPHILS 1.0 % 08/31/2021 [facility] 10:07 AM [facility] IMMATURE 0.4 % 08/31/2021 [facility] GRANULOCYTES(MET 10:07 AM [facility] ,MYELOS,PROS) LABORATORY ABSOLUTE 3.8 1.7 - 7.0 08/31/2021 [facility] NEUTROPHILS thou/cu mm 10:07 AM [facility] ABSOLUTE 0.5 (L) 0.9 - 2.9 08/31/2021 [facility] LYMPHOCYTES thou/cu mm 10:07 AM [facility] ABSOLUTE 0.5 <0.9 08/31/2021 [facility] MONOCYTES thou/cu mm 10:07 AM [facility] ABSOLUTE 0.2 <0.5 08/31/2021 [facility] EOSINOPHILS thou/cu mm 10:07 AM [facility] LAB[facility] ABSOLUTE 0.1 <0.3 08/31/2021 [facility] BASOPHILS thou/cu mm 10:07 AM [facility] LAB[facility] ABSOLUTE 0.0 <0.3 08/31/2021 [facility] IMMATURE thou/cu mm 10:07 AM [facility] GRANULOCYTES(MET LABORATORY ,MYELOS,PROS) Specimen Anatomical Collection Method / Collection Time Recei ana lilia Time (Source) Location / Volume Laterality Blood BLOOD SPECIMEN / Venipuncture / 08/31/2021 9:44 2021 9:48 Unknown Unknown AM CDT AM CDT Derrick Bower MD HEMATOLOGY Performing Organization Address City/State/ZIP Code Phon e Number [facility] SENDOUT INTERNAL ZIP [place] [phone] [place] [address] (ABNORMAL) COMP METABOLIC PANEL (08/31/2021 9:44 AM CDT) [facility] Method Time Signature SODIUM 141 135 - 145 08/31/2021 [facility] mmol/L 10:33 AM [facility] POTASSIUM 3.6 3.5 - 5.0 08/31/2021 [facility] mmol/L 10:33 AM [facility] CHLORIDE 106 98 - 110 08/31/2021 [facility] mmol/L 10:33 AM [facility] CO2,TOTAL 26 21 - 31 08/31/2021 [facility] mmol/L 10:33 AM [facility] ANION GAP 9 5 - 18 08/31/2021 [facility] 10:33 AM [facility] GLUCOSE 102 (H) 65 - 100 08/31/2021 [facility] mg/dL 10:33 AM [facility] CALCIUM 9.5 8.5 - 10.5 08/31/2021 [facility] mg/dL 10:33 AM [facility] BUN 12 8 - 25 08/31/2021 [facility] mg/dL 10:33 AM [facility] CREATININE 0.92 0.57 - 08/31/2021 [facility] 1.11 mg/dL 10:33 AM [facility] BUN/CREAT RATIO 13 10 - 20 08/31/2021 [facility] 10:33 AM [facility] ALBUMIN 3.8 3.5 - 5.2 08/31/2021 [facility] g/dL 10:33 AM [facility] PROTEIN,TOTAL 6.6 6.0 - 8.0 08/31/2021 [facility] g/dL 10:33 AM [facility] GLOBULIN 2.8 2.0 - 3.7 08/31/2021 [facility] g/dL 10:33 AM [facility] A/G RATIO 1.4 1.0 - 2.0 08/31/2021 [facility] 10:33 AM [facility] BILIRUBIN,TOTAL 0.8 0.2 - 1.2 08/31/2021 [facility] mg/dL 10:33 AM [facility] ALK PHOSPHATASE 87 50 - 136 08/31/2021 [facility] IU/L 10:33 AM [facility] ALT (SGPT) 10 8 - 45 08/31/2021 [facility] IU/L 10:33 AM [facility] AST (SGOT) 15 2 - 40 08/31/2021 [facility] IU/L 10:33 AM [facility] eGFR 72 (L) >90 08/31/2021 [facility] mL/min/1.7 10:33 AM [facility] 3m2 LABORATORY Comment: As of 2021, [...] Organization Address City/State/ZIP Code Phon e Number [facility] SENDOUT INTERNAL ZIP [place], [place] [phone] [address] [facility] [address] CHEST WO (08/24/2021 4:00 PM CDT) [...] note that all CT scans at [facility] use dose modulation, iterative reconstruction, and/or weight-based dosing when appropriate to reduce radiation dose to as low as reasonably achievable. Dictated by Hazel Garcia MD @ [facility] ??1 2021 ??1:53PM (Electronically Signed) ?? Narrative 08/25/2021 1:53 PM CDT For Patients: ??As a result of the Cures Act, medical imaging exams and procedure report s are released immediately into your [facility]. ??You may view this report before your referring provider. ??If you have questions, please contact your health care provider. INDICATION: [id number] TECHNIQUE: CT chest without contrast. COMPARISON: Chest radiograph 08/15/2021 FINDINGS: Multiple prominence mediastinal lymph no roxie. Fullness at the right greater than left roas incompletely evaluated on this noncontrast exam likely [...] please contact yo health care provider. INDICATION: [id number] TECHNIQUE: CT chest without contrast. COMPARISON: Chest [...] that all CT scans at [facility] use dose modulation, iterative reconstruction, and/or weight-based dosing when appropriate to reduce radiation dose to as low as reasonably achievable. Dictated by Hazel Garcia MD @ Aug 25 022 1:53PM (Electronically Signed) Derrick Bower MD CT from Last 3 Months Insurance Payer Benefit Plan / Subscriber ID Effective Dates Phone Addre ss Type Group [employer] OF [id number] 2020-Present [address] [address] [place] [address] (Home) [place] [address] Care Teams Buffing Line Set Up Worker Relationship Specialty Start Date End Date [employer] PCP - General 01/30/[address] [place] [place] [address]
[2021-11-18 01:32] LABS: D Dimer Quantitative* 0.28 ug/ml (0.00-0.50)
--- NOTE | 2021-11-18 02:10 | ED.NURSE ---
Pt had brief episode of tachycardia, 14 beats, Dr. Cardona updated.
== END 2021-11-18 02:33 | disposition home or self-care (01) ==
PROVIDERS: Emergency Provider Family Medicine; PCP Physician Assistant Medical
DX: I49.3 Ventricular premature depolarization (principal); R07.9 Chest pain, unspecified
CPT/HCPCS: 36415; 71045; 80048; 80076; 83690; 83735; 83880; 84484; 85025; 85379; 86140; 93005; 94761; 99284; 99285; A9270

== ENCOUNTER 2023-02-01 15:38 | Observation (INO) | payer BC, SELFPAY ==
[2023-02-01 15:59] VITALS: BP 131/72; PULSE 76; RESP 22; TEMP 37.1; O2SAT 89; BMI 35.0
[2023-02-01 16:06] VITALS: O2SAT 94
--- NOTE | 2023-02-01 16:22 | ED_ITS ---
HPI - General Adult General Time Seen by Provider: 16:22 Date Seen: 02/01/23 Chief complaint: Cough Stated complaint: RSV; short of breath Time Seen by Provider: 02/01/23 16:17 Source: patient Mode of arrival: ambulatory Limitations: no limitations History of Present Illness HPI narrative: 57-year-old female with history of sarcoidosis who presents with shortness of breath. Patient was diagnosed with RSV on January 29, increased shortness of breath and cough since then. Patient is on a prednisone burst, also using Dulera scheduled as well as albuterol about twice a day. Denies chest pain, nausea, vomiting, diarrhea, lower extremity swelling, abdominal pain, fever, chills, runny nose. Related Data Home Medications Medication Instructions Recorded Confirmed mometasone-formoterol HFA 50 mcg-5 2 inh inhalation BID 09/29/21 01/29/23 mcg/actuation aerosol inhaler (Dulera) nortriptyline 10 mg capsule 20 mg PO DAILY 09/29/21 01/29/23 quetiapine 25 mg tablet 25 mg PO DAILY 09/29/21 01/29/23 mycophenolate mofetil 250 mg mg PO 01/14/23 01/29/23 capsule mycophenolate mofetil 500 mg tablet 1,000 mg PO BID 01/14/23 01/29/23 guaifenesin [Mucinex] PO 01/29/23 01/29/23 Previous Rx's Medication Instructions Recorded benzonatate 200 mg capsule 200 mg PO TID PRN cough #30 caps 01/29/23 codeine 10 mg-guaifenesin 100 mg/5 5 - 10 ml PO Q6H PRN cough #473 mL 01/29/23 mL oral liquid Allergies Allergy/AdvReac Type Severity Reaction Status Date / Time Sulfa (Sulfonamide Allergy Nausea Verified 01/29/23 13:29 Antibiotics) [facility] Medical History (Updated 02/01/23 @ 19:12 by Darryl Levin MD) Sarcoidosis ?D86.9 - Sarcoidosis, unspecified (ICD-10) 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 - Immunodeficiency due to drugs (ICD-10) ?Z79.899 - Other fpc (current) drug therapy (ICD-10) Social History Smoking Status: Never smoker Do you use any of these nicotine containing products: None Second hand tobacco smoke exposure: No How often do you have a drink containing alcohol: never How often do you have six or more drinks on one occasion: Never AUDIT-C Alcohol total score: 0 Non-prescribed substance use: denies use service: No Exam Narrative: Exam Narrative: General: Well-developed and well-nourished, no acute distress Head: Atraumatic and normocephalic Eyes: Pupils are equal reactive, extraocular motions intact, conjunctiva clear ENT: External nose and ears are normal, posterior pharynx without erythema or exudate Neck: No midline cervical tenderness, full spontaneous range of motion the neck, trachea midline, no adenopathy Heart: Regular rate and rhythm no murmurs or thrills Lungs: Bilateral expiratory wheezes with bilateral crackles more prominent on the left Abdomen: Soft, nontender, nondistended with active bowel sounds Musculoskeletal: No tenderness, deformity, or edema Neurologic: Awake, alert, and oriented x3, no gross focal neurologic deficits, cranial nerves intact as tested Psych: Mood and affect are appropriate Skin: No rashes Const: Vital Signs, click to edit/add: Vital Signs - 24 hr 02/01/23 15:59 02/01/23 16:06 Temperature 98.8 F Pulse Rate [Right Pulse Oximeter] 76 Respiratory Rate 22 Blood Pressure [Ri ght Upper Arm] 131/72 Pulse Oximetry 89 94 Oxygen Delivery Me thod Room Air Nasal Cannula Oxygen Flow Rate 2 Course Course ED Course: Patient seen examined, prior records reviewed. Patient with history of sarcoid, diagnosed with RSV in clinic 2 days ago inserted on prednisone, comes to the emergency department today with continued shortness of breath and low oxygen saturations. In the emergency department, initial saturation 89% on room air, patient appears short of breath, crackles and wheezes bilaterally worse on the left. Labs and chest x-ray ordered including CBC, VBG, BNP. Reevaluation(s) Time of Reevaluation #1: 17:35 Reevaluation #1: Labs independently interpreted by me with normal CBC, hypokalemia but otherwise normal basic metabolic panel, normal magnesium, BNP pending. Chest x-ray independently interpreted by me does not demonstrate any acute infiltrate or effusion. Time of Reevaluation #2: 17:57 Reevaluation #2: D-dimer negative, BNP normal. Time of Reevaluation #3: 19:10 Reevaluation #3: Patient recheck, updated with diagnosis and plan. Oxygen was turned off and patient desaturated to 85% although looked fairly comfortable with this. Discussed disposition with patient. Due to ongoing hypoxia in spite of being on prednisone for last 4 days and albuterol, patient will be admitted for oxygen therapy, further pulmonary evaluation and treatment. Due to failure to improve as expected on appropriate treatment, repeat respiratory plan will be ordered to make sure patient has not developed COVID or influenza in the interim, will also initiate antibiotics for possible colonization or bacterial bronchitis. Vital Signs Vital signs: Initial Vital Signs Temperature 98.8 F 02/01/23 15:59 Temperature Source Temporal Artery Scan 02/01/23 15:59 Pulse Rate 76 02/01/23 15:59 Pulse Rhythm Regular 02/01/23 15:59 Pulse Strength 3+ Normal 02/01/23 15:59 Respiratory Rate 22 02/01/23 15:59 Blood Pressure 131/72 02/01/23 15:59 Blood Pressure Mean 91 02/01/23 15:59 Blood Pressure Position Sitting 02/01/23 15:59 Pulse Oximetry 89 02/01/23 15:59 Oxygen Delivery Method Room Air 02/01/23 15:59 Vital Signs Temperature 98.8 F 02/01/23 15:59 Pulse Rate 76 02/01/23 15:59 Respiratory Rate 22 02/01/23 15:59 Blood Pressure 131/72 02/01/23 15:59 Pulse Oximetry 89 02/01/23 15:59 Oxygen Delivery Method Room Air 02/01/23 15:59 Temperature 98.8 F 02/01/23 15:59 Pulse Rate 76 02/01/23 15:59 Respiratory Rate 22 02/01/23 15:59 Blood Pressure 131/72 02/01/23 15:59 Pulse Oximetry 94 02/01/23 16:06 Oxygen Delivery Method Nasal Cannula 02/01/23 16:06 Oxygen Flow Rate 2 02/01/23 16:06 Medications Administered Medications: Discontinued Medications Generic Name Dose Route Start Last Admin Trade Name Freq PRN Reason Stop Dose Admin Albuterol/Ipratropium 1 neb 02/01/23 17:51 02/01/23 18:02 Iprat-Albut 0.5-2.5 Mg/3 Ml Neb IH 02/01/23 17:52 1 neb ONCE ONE Administration Medical Decision Making Lab Data Labs: Lab Results 02/01/23 Range/Units 16:48 WBC 7.21 (4.50-11.00) K/uL RBC 5.66 H (4.00-5.20) m/uL Hgb 14.3 (12.0-16.0) gm/dL Hct 46.4 (33.0-51.0) % MCV 82 (80-100) fL MCH 25 L (26-34) pg MCHC 31 L (32-36) gm/dL RDW Coeff of Cordelia 15.4 (11.5-15.5) % Plt Count 176 (140-440) K/uL Neut % (Auto) 80.0 H (42.0-72.0) % Lymph % (Auto) 4.0 L (20-44) % Collier % (Auto) 13.5 H (0.0-11.0) % Eos % (Auto) 1.5 (0.0-7.0) % Baso % (Auto) 0.3 (0.0-3.0) % Neut # (Auto) 5.80 (1.7-7.0) K/uL Lymph # (Auto) 0.30 L (0.90-2.90) K/uL Collier # (Auto) 1.00 H (0.00-0.90) K/UL Eos # (Auto) 0.11 (0.00-0.50) K/uL Baso # (Auto) 0.02 (0.00-0.30) K/uL Abs Immat Gran (auto) 0.05 (0.00-0.30) K/uL Imm/Tot Granulo (auto) 0.7 % D-Dimer Quant (PE/DVT) < 0.27 (0.00-0.50) ug/ml Sodium 140 (135-149) mmol/L Potassium 3.0 L (3.6-5.1) mmol/L Chloride 101 (96-114) mmol/L Carbon Dioxide 32 (20-32) mmol/L Anion Gap 7 (7-15) mEq/L BUN 14 (7-30) mg/dL Creatinine 0.9 (0.5-1.5) mg/dL Estimated Creat Clear 67.89 Estimated GFR 74 ml/min Glucose 95 (60-115) mg/dL Calcium 9.1 (8.4-10.6) mg/dL Magnesium 2.1 (1.5-2.6) mg/dL NT-Pro-B Natriuret Pep 164 pg/mL Discharge Plan Discharge Clinical Impression: Immunosuppression due to drug therapy, Acute bronchitis due to respiratory syncytial virus (RSV), Hypoxia, Sarcoidosis Patient Disposition: Admitted As Observation Prescriptions: No Action mycophenolate mofetil 500 mg tablet 1,000 mg PO BID mycophenolate mofetil 250 mg capsule PO guaifenesin [Mucinex] PO benzonatate 200 mg capsule 200 mg PO TID PRN (Reason: cough) Qty: 30 1RF codeine-guaifenesin 10-100 mg/5 mL liquid 5 - 10 ml PO Q6H PRN (Reason: cough) Qty: 473 0RF nortriptyline 10 mg capsule 20 mg PO DAILY quetiapine 25 mg tablet 25 mg PO DAILY Dulera 50-5 mcg/actuation HFA aerosol inhaler 2 inh inhalation BID Follow Up/Referrals: Gayathri Carroll PA-C [Primary Care Provider] -
--- NOTE | 2023-02-01 16:32 | CRLHL7_ITS ---
For Patients: As a result of the Century Cures Act, medical imaging exams and procedure reports are released immediately into your electronic medical record. You may view this report before your referring provider. If you have questions, please contact your health care provider. INDICATION: Dyspnea. TECHNIQUE: Chest radiograph, 1 view. COMPARISON: Chest radiographs 01/14/2023. FINDINGS: Lines/Tubes/Devices: None. Mediastinum: Normal cardiac silhouette. Lungs: No focal consolidation. Linear bandlike opacifications of the lung bases likely due to subsegmental atelectasis and/or scarring. Airways: The trachea remains midline. Pleura: No pleural effusions or pneumothorax. Bones: No acute osseous abnormalities. Upper Abdomen: Unremarkable. IMPRESSION: No acute cardiopulmonary process. Dictated by Reynaldo Richardson MD @ 02/01/2023 6:00:03 PM (Electronically Signed)
[2023-02-01 17:10] LABS: Basophils Absolute Auto 0.02 K/uL (0.00-0.30); Basophils Percent Auto 0.3 % (0.0-3.0); Eosinophils Absolute Auto 0.11 K/uL (0.00-0.50); Eosinophils Percent Auto 1.5 % (0.0-7.0); Hematocrit 46.4 % (33.0-51.0); Hemoglobin* 14.3 gm/dL (12.0-16.0); Immature Granulocytes Abs Auto 0.05 K/uL (0.00-0.30); Immature Granulocytes Pct Auto 0.7 %; Mean Corpuscular HGB Conc 31 gm/dL (32-36); Mean Corpuscular Hemoglobin 25 pg (26-34); Mean Corpuscular Volume 82 fL (80-100); Monocytes Percent Auto 13.5 % (0.0-11.0); Platelet Count* 176 K/uL (140-440); RDW Coefficient of Variation % 15.4 % (11.5-15.5); Red Blood Count 5.66 m/uL (4.00-5.20); White Blood Count* 7.21 K/uL (4.50-11.00)
[2023-02-01 17:17] LABS: Slide Review Reflex No
[2023-02-01 17:26] LABS: Chloride* 101 mmol/L (96-114); Sodium* 140 mmol/L (135-149)
[2023-02-01 17:29] LABS: Anion Gap 7 mEq/L (7-15); Blood Urea Nitrogen* 14 mg/dL (7-30); Carbon Dioxide* 32 mmol/L (20-32); Creatinine* 0.9 mg/dL (0.5-1.5); Est. Creatinine Clearance* 67.89; Estimated Glomerular Filt Rate 74 ml/min; Glucose* 95 mg/dL (60-115)
[2023-02-01 17:30] LABS: Calcium* 9.1 mg/dL (8.4-10.6); Magnesium* 2.1 mg/dL (1.5-2.6)
[2023-02-01 17:38] LABS: D Dimer Quantitative* < 0.27 ug/ml (0.00-0.50)
[2023-02-01 17:39] LABS: NT Pro B Type NatriureticPept* 164 pg/mL
[2023-02-01] MEDS: IPRAT-ALBUT 0.5-2.5 MG/3 ML NEB 1 NEB IH (18:02)
[2023-02-01] MEDS: METHYLPREDNISOLONE SOD SUCC 62.5 MG/ML (125) 125 MG IVP (20:00)
[2023-02-01] MEDS: AZITHROMYCIN 250 MG TABLET 500 MG PO (20:00)
[2023-02-01] MEDS: cefTRIAXone 1 GM in 0.9 % SODIUM CHLORIDE Mini-bag 100 ML IVPB (20:00)
[2023-02-01 20:10] LABS: PCR FLU A Negative PCR FLU A (Negative); PCR FLU B Negative PCR FLU B (Negative); PCR RSV POSITIVE PCR RSV (Negative)
[2023-02-01 20:24] LABS: SARS PCR* Negative SARS-CoV-2 (Negative)
[2023-02-01 21:26] VITALS: O2SAT 91
[2023-02-01 21:27] VITALS: BP 137/75; PULSE 76; RESP 20; TEMP 36.9; O2SAT 91; BMI 35.4
[2023-02-01 22:40] VITALS: RESP 20; O2SAT 92
--- NOTE | 2023-02-01 22:47 | P.IMHP_ITS ---
Hospitalist- H&P: HPI History of Present Illness Date Seen: 02/01/23 Chief complaint: RSV; short of breath Narrative: Nanci Rice is a 57 year old female past medical history significant for sarcoidosis diagnosed 1 and half years ago, cardiac sarcoidosis, anxiety, depression, mitral valve regurgitation, history of ventricular ectopy is admitted to the medical floor from the ED for further management hypoxia in setting of acute RSV infection. Patient reports 4 week history of upper respiratory symptoms including intermittent cough, shortness of breath, body aches. Was treated with short course of prednisone during this time period. Worsening symptoms again over the last few days. Was seen in the urgent care on 01/29 where she had a positive RSV. Prednisone burst dose was started. She continues on her Dulera and Ventolin. Checked her oxygen saturation this morning with her watch and noticed it was in the low 80s. Denies headache or dizziness. Denies recent fevers or chills. Denies chest pain or tightness. No nausea or vomiting. No change in bowel or bladder. Quit smoking 17 years ago. Drinks approximately 2 alcohol drinks weekly. In the ED, oxygen saturation on room air noted to be 85-89%. She received methylprednisolone, azithromycin, and ceftriaxone. COVID and influenza negative. Review of Systems Narrative: REVIEW OF SYSTEMS: Complete review of systems performed and negative unless otherwise stated in HPI or below. [facility] Medical History Ventricular trigeminy ?I49.8 - Other specified cardiac arrhythmias (ICD-10) Mitral valve regurgitation ?I34.0 - Nonrheumatic mitral (valve) insufficiency (ICD-10) Depression ?F32.A - Depression, unspecified (ICD-10) Anxiety ?F41.9 - Anxiety disorder, unspecified (ICD-10) Sarcoidosis ?D86.9 - Sarcoidosis, unspecified (ICD-10) 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 - Immunodeficiency due to drugs (ICD-10) ?Z79.899 - Other halfway (current) drug therapy (ICD-10) Social History Smoking Status: Never smoker Do you use any of these nicotine containing products: None Second hand tobacco smoke exposure: No How often do you have a drink containing alcohol: never How often do you have six or more drinks on one occasion: Never AUDIT-C Alcohol total score: 0 Non-prescribed substance use: denies use service: No Meds Home Medications and Allergies Home Medications Medication Instructions Recorded Confirmed Type mometasone-formoterol HFA 50 mcg-5 2 inh inhalation BID 09/29/21 01/29/23 History mcg/actuation aerosol inhaler (Dulera) nortriptyline 10 mg capsule 20 mg PO DAILY 09/29/21 01/29/23 History quetiapine 25 mg tablet 25 mg PO DAILY 09/29/21 01/29/23 History mycophenolate mofetil 250 mg mg PO 01/14/23 01/29/23 History capsule mycophenolate mofetil 500 mg tablet 1,000 mg PO BID 01/14/23 01/29/23 History guaifenesin [Mucinex] PO 01/29/23 01/29/23 History Allergies Allergy/AdvReac Type Severity Reaction Status Date / Time Sulfa (Sulfonamide Allergy Nausea Verified 01/29/23 13:29 Antibiotics) Exam Narrative: Exam Narrative: PHYSICAL EXAM General: Sitting up in chair, very pleasant, conversant, NAD HEENT: Normocephalic, atraumatic, sclera white, EOMI, oral mucosa moist Cardiovascular: RRR, S1S2. No pitting edema Pulmonary: Very mildly diminished without rhonchi, rales, expiratory wheezes. No dyspnea on nasal cannula. Conversing normally. Neurological: Alert, answering questions appropriately, cranial nerves intact, no focal findings Extremities: No gross joint deformity or swelling. AROMI. Neurovascularly intact Skin: Warm, dry. Const: Vital Signs, click to edit/add: Vital Signs - 24 hr 02/01/23 15:59 02/01/23 16:06 02/01/23 21:27 Temperature 98.8 F 98.5 F Pulse Rate [Pulse Oximeter] 76 Pulse Rate [Right Pulse Oximeter] 76 Respiratory Rate 22 20 Blood Pressure [Ri ght Arm] 137/75 Blood Pressure [Ri ght Upper Arm] 131/72 Pulse Oximetry 89 94 91 Oxygen Delivery Me thod Room Air Nasal Cannula Nasal Cannula Oxygen Flow Rate 2 2 Hospitalist - H&P: Result Labs Labs: Short CBC 02/01/23 Range/Units 16:48 WBC 7.21 (4.50-11.00) K/uL Hgb 14.3 (12.0-16.0) gm/dL Hct 46.4 (33.0-51.0) % Plt Count 176 (140-440) K/uL [facility] 02/01/23 16:48 Sodium 140 Potassium 3.0 L Chloride 101 Carbon Dioxide 32 BUN 14 Creatinine 0.9 Glucose 95 Calcium 9.1 Imaging Chest x-ray: Attestation: I have reviewed the pertinent imaging results. Radiologist's impression: Chest radiograph, 1 view. COMPARISON: Chest radiographs 01/14/2023. FINDINGS: Lines/Tubes/Devices: None. Mediastinum: Normal cardiac silhouette. Lungs: No focal consolidation. Linear bandlike opacifications of the lung bases likely due to subsegmental atelectasis and/or scarring. Airways: The trachea remains midline. Pleura: No pleural effusions or pneumothorax. Bones: No acute osseous abnormalities. Upper Abdomen: Unremarkable. IMPRESSION: No acute cardiopulmonary process. Assessment and Plan Assessment and plan (1) Hypoxia: Problem comment: -in setting of acute RSV infection and chronic sarcoidosis, interstitial lung disease, cardiac sarcoidosis -room-air saturation 85-89% in ED -continue oxygen supplementation, weaning as able, to maintain saturations > 92% -RT for pulmonary support Status: Acute (2) Acute bronchitis due to respiratory syncytial virus (RSV): Problem comment: -supportive management with oxygen -prednisone 40 mg daily (given sarcoidosis history), will need taper on discharge. Received methylprednisolone in ED -Mucinex b.i.d., guaifenesin AC p.r.n., Tessalon Perles p.r.n. -received IV antibiotics in ED, CXR unremarkable, afebrile, no leukocytosis. Procalcitonin ordered, will defer further antibiotics at this time. Status: Acute (3) Sarcoidosis: Problem comment: -diagnosed 1.5 years ago -home medications include Dulera, Ventolin Status: Acute (4) Cardiac sarcoidosis: Problem comment: -continue CellCept -telemetry -followed by [facility] Status: Acute (5) Hypokalemia: Problem comment: -potassium 3.0 -supplement with potassium bicarbonate 25 mEq x2 doses, recheck in a.m. Status: Acute Plan CODE: Full VTE PPX: Enoxaparin Disposition: Observation, likely discharge tomorrow with clinical improvement
[2023-02-01 23:00] VITALS: O2SAT 91
[2023-02-01] MEDS: QUETIAPINE 25 MG TABLET PO (23:55)
[2023-02-01] MEDS: MOMETASONE IH (23:56)
[2023-02-01] MEDS: [UNRECOGNIZED DRUG - OTHER] IH (23:56)
[2023-02-01] MEDS: FORMOTEROL IH (23:56)
[2023-02-01] MEDS: POTASSIUM BICARB 25 MEQ EFFERVESCENT TAB PO (23:56)
[2023-02-01] MEDS: mycophenolate mofetiL 250 MG CAPSULE 1250 MG PO (23:58)
[2023-02-01] MEDS: GUAIF/CODEINE 200/20MG/10 ML SOLUTION 5 ML PO (23:59)
[2023-02-02] VITALS (11 sets, daily range): BP systolic 114–134; BP diastolic 64–79; PULSE 57–764; RESP 16–20; TEMP 36.4–36.8; O2SAT 90–96
[2023-02-02 00:18] LABS: Procalcitonin* 0.07 ng/mL (<0.50)
[2023-02-02] MEDS: POTASSIUM BICARB 25 MEQ EFFERVESCENT TAB PO (02:58)
[2023-02-02 07:14] LABS: Hematocrit 38.3 % (33.0-51.0); Mean Corpuscular HGB Conc 31 gm/dL (32-36); Mean Corpuscular Hemoglobin 26 pg (26-34); Mean Corpuscular Volume 82 fL (80-100); Platelet Count* 243 K/uL (140-440); Red Blood Count 4.67 m/uL (4.00-5.20); White Blood Count* 4.69 K/uL (4.50-11.00)
[2023-02-02 07:25] LABS: Chloride* 101 mmol/L (96-114); Potassium* 4.4 mmol/L (3.6-5.1); Sodium* 138 mmol/L (135-149)
[2023-02-02 07:27] LABS: Slide Review Reflex No
[2023-02-02 07:28] LABS: Blood Urea Nitrogen* 13 mg/dL (7-30); Creatinine* 0.7 mg/dL (0.5-1.5); Est. Creatinine Clearance* 87.29; Estimated Glomerular Filt Rate 100 ml/min; Glucose* 134 mg/dL (60-115)
[2023-02-02 07:29] LABS: Calcium* 8.9 mg/dL (8.4-10.6)
[2023-02-02 07:32] LABS: Anion Gap 6 mEq/L (7-15); Carbon Dioxide* 31 mmol/L (20-32)
[2023-02-02] MEDS: guaiFENesin 600 MG TAB.ER.12H PO ×2 (08:05→20:58)
[2023-02-02] MEDS: predniSONE 20 MG TABLET 40 MG PO (08:06)
[2023-02-02] MEDS: FORMOTEROL IH (08:07)
[2023-02-02] MEDS: [UNRECOGNIZED DRUG - OTHER] IH (08:07)
[2023-02-02] MEDS: MOMETASONE IH (08:07)
[2023-02-02] MEDS: mycophenolate mofetiL 250 MG CAPSULE 1250 MG PO (08:08)
[2023-02-02] MEDS: SODIUM CHLORIDE 0.9 % (FLUSH) 10 ML SYRINGE 5 ML IVF ×2 (08:09→21:00)
--- NOTE | 2023-02-02 09:46 | PC.NURSE ---
Patient pleasant, alert and oriented. Denied pain. Continues with shortness of breath and non-productive cough. Requested PRN guaifenesin with codeine at HS. O2 sats decreased to 83% on 2 LPM when sleeping. HOB was elevated and O2 increased to 3 LPM. O2 sats 93-96% on 3 LPM.
--- NOTE | 2023-02-02 19:03 | P.IMPN_ITS ---
Progress Note: A&P Assessment and plan (1) Hypoxia: Problem details: -in setting of acute RSV infection and chronic sarcoidosis, interstitial lung disease, cardiac sarcoidosis -room-air saturation 85-89% in ED -02/02 persists today at 85% on room air while at rest -continue oxygen supplementation, weaning as able, to maintain saturations > 92% -RT for pulmonary support Status: Acute (2) Acute bronchitis due to respiratory syncytial virus (RSV): Problem details: -supportive management with oxygen -prednisone 40 mg daily (given sarcoidosis history) x5 days followed by taper on discharge. Received methylprednisolone in ED -Mucinex b.i.d., guaifenesin AC p.r.n., Tessalon Perles p.r.n. -received IV antibiotics in ED, CXR unremarkable, afebrile, no leukocytosis. Procalcitonin 0.07, will defer further antibiotics at this time. Status: Acute (3) Sarcoidosis: Problem details: -diagnosed 1.5 years ago -home medications include Dulera, Ventolin Status: Acute (4) Cardiac sarcoidosis: Problem details: -continue CellCept -telemetry -followed by [facility] [place] [facility] [place] Status: Acute (5) Hypokalemia: Problem details: -resolved, 4.4, following 2 doses potassium bicarbonate Status: Acute Time Spent With Patient Total time spent: Total time spent caring for the patient today was 45 minutes. This includes time spent for the visit reviewing the chart, time spent during the visit, time spent after the visit and documentation and planning in coordination of care. Subjective Date Seen: 02/02/23 Interval history: Patient reports feeling a little better this morning. While she does not feel as short of breath with oxygen in place, she trialed herself off of oxygen with saturations dropping to 85%. She is able to ambulate short distances without oxygen but saturations drop, requiring rest to recuperate. Remains fatigued. Has remained afebrile. Tolerating orals. Exam Narrative: Exam Narrative: PHYSICAL EXAM General: Sitting up in chair, very pleasant, conversant, NAD HEENT: Normocephalic, atraumatic, sclera white, EOMI, oral mucosa moist Cardiovascular: RRR, S1S2. No pitting edema Pulmonary: Breath sounds noted to be improving, no rhonchi, rales, expiratory wheezes. No dyspnea on nasal cannula. Conversing normally in short conversation Neurological: Alert, answering questions appropriately, cranial nerves intact, no focal findings Extremities: No gross joint deformity or swelling. AROMI. Neurovascularly intact Skin: Warm, dry. Const: Vital Signs, click to edit/add: Vital Signs - 24 hr 02/01/23 21:26 02/01/23 21:27 02/01/23 22:40 Temperature 98.5 F Pulse Rate Pulse Rate [Pulse Oximeter] 76 Respiratory Rate 20 20 Blood Pressure [Le ft Arm] Blood Pressure [Ri ght Arm] 137/75 Pulse Oximetry 91 91 92 Oxygen Delivery Me thod Nasal Cannula Nasal Cannula Nasal Cannula Oxygen Flow Rate 2 2 2 02/01/23 23:00 02/02/23 03:00 02/02/23 03:30 Temperature 97.5 F L Pulse Rate 57 L Pulse Rate [Pulse Oximeter] 75 Respiratory Rate 20 Blood Pressure [Le ft Arm] 121/65 Blood Pressure [Ri ght Arm] Pulse Oximetry 91 91 Oxygen Delivery Me thod Nasal Cannula Oxygen Flow Rate 2 02/02/23 08:01 02/02/23 08:01 02/02/23 09:36 Temperature 97.9 F Pulse Rate 71 Pulse Rate [Pulse Oximeter] 69 Respiratory Rate 16 Blood Pressure [Le ft Arm] 114/64 Blood Pressure [Ri ght Arm] Pulse Oximetry 94 94 Oxygen Delivery Me thod Nasal Cannula Oxygen Flow Rate 3 02/02/23 11:38 02/02/23 14:41 02/02/23 15:00 Temperature 97.9 F 98.1 F Pulse Rate Pulse Rate [Pulse Oximeter] 69 70 Respiratory Rate 18 20 20 Blood Pressure [Le ft Arm] 125/71 Blood Pressure [Ri ght Arm] 127/79 Pulse Oximetry 94 90 96 Oxygen Delivery Me thod Nasal Cannula Nasal Cannula Nasal Cannula Oxygen Flow Rate 3 30 3 02/02/23 16:57 02/02/23 17:23 Temperature Pulse Rate 80 Pulse Rate [Pulse Oximeter] Respiratory Rate Blood Pressure [Le ft Arm] Blood Pressure [Ri ght Arm] Pulse Oximetry 96 Oxygen Delivery Me thod Oxygen Flow Rate Labs Labs: Laboratory Results - last 24 hr 02/01/23 02/01/23 02/01/23 16:48 19:27 22:44 WBC RBC Hgb Hct MCV MCH MCHC Plt Count Sodium Potassium Chloride Carbon Dioxide Anion Gap BUN Creatinine Estimated Creat Clear Estimated GFR Glucose Calcium Procalcitonin 0.07 SARS-CoV-2 (PCR) Negative SARS-CoV-2 Influenza Type A (PCR) Negative PCR FLU A Influenza Type B (PCR) Negative PCR FLU B RSV (PCR) POSITIVE PCR RSV A Lab Acknowledgement Test Added 02/02/23 06:51 WBC 4.69 RBC 4.67 Hgb 12.0 Hct 38.3 MCV 82 MCH 26 MCHC 31 L Plt Count 243 Sodium 138 Potassium 4.4 Chloride 101 Carbon Dioxide 31 Anion Gap 6 L BUN 13 Creatinine 0.7 Estimated Creat Clear 87.29 Estimated GFR 100 Glucose 134 H Calcium 8.9 Procalcitonin SARS-CoV-2 (PCR) Influenza Type A (PCR) Influenza Type B (PCR) RSV (PCR) Lab Acknowledgement
[2023-02-02] MEDS: ENOXAPARIN 40 MG/0.4 ML INJ SUBCUT (20:58)
[2023-02-02] MEDS: NORTRIPTYLINE 10 MG CAPSULE 20 MG PO (20:58)
[2023-02-02] MEDS: QUETIAPINE 25 MG TABLET PO (21:00)
[2023-02-03 03:00] VITALS: BP 128/70; PULSE 63; RESP 20; TEMP 36.6; O2SAT 96
--- NOTE | 2023-02-03 06:24 | PC.NURSE ---
Shift note: Pt is doing well. Has been on 3L of oxygen throughout the shift. Desaturate quickly without oxygen. Expiratory rhonchi at both lungs. Alert and oriented, ambulated independently in room. No pain and fever reported and observed. Pt had adequate sleep.
[2023-02-03 07:00] VITALS: BP 121/61; PULSE 79; RESP 18; TEMP 36.5; O2SAT 94
[2023-02-03 07:53] VITALS: PULSE 76
[2023-02-03] MEDS: predniSONE 20 MG TABLET 40 MG PO (09:03)
[2023-02-03] MEDS: guaiFENesin 600 MG TAB.ER.12H PO (09:03)
[2023-02-03 12:12] VITALS: O2SAT 82; O2SAT 88; O2SAT 90
[2023-02-03 13:07] VITALS: RESP 20; O2SAT 90
--- NOTE | 2023-02-03 15:38 | P.DS_ITS ---
DS: Providers Provider Time Seen by Provider: 12:00 Date Seen: 02/03/23 Date of admission: 02/01/23 21:15 Primary care physician: Gayathri Carroll PA-C Admitting Clinician: Jimena Sandoval MD Consults: 02/01/23 22:39 Consult to Respiratory Therapy [CONS] Routine Comment: Reason(s) for RT Consult:: Consult Attending Physician on discharge: Sheron Healy MD Date of Discharge: 02/03/23 DS: Diagnosis Discharge Diagnosis (1) Hypoxia: Status: Acute Problem details: -in setting of acute RSV infection and chronic sarcoidosis, interstitial lung disease, cardiac sarcoidosis -room-air saturation 85-89% in ED -02/02 persists today at 85% on room air while at rest -continue oxygen supplementation, weaning as able, to maintain saturations > 92% -RT for pulmonary support -02/03 feeling better. Set up with home oxygen. F/u with PCP and social media job titles, prednisone taper. (2) Acute bronchitis due to respiratory syncytial virus (RSV): Status: Acute Problem details: -supportive management with oxygen -prednisone 40 mg daily (given sarcoidosis history) x5 days followed by taper on discharge. Received methylprednisolone in ED -Mucinex b.i.d., guaifenesin AC p.r.n., Tessalon Perles p.r.n. -received IV antibiotics in ED, CXR unremarkable, afebrile, no leukocytosis. Procalcitonin 0.07, will defer further antibiotics at this time. (3) Sarcoidosis: Status: Acute Problem details: -diagnosed 1.5 years ago -home medications include Dulera, Ventolin (4) Cardiac sarcoidosis: Status: Acute Problem details: -continue CellCept -No significant findings on telemetry during hospital stay. 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 She had tested positive for RSV on 01/29 and had been started on prednisone as an outpatient but continued to have symptoms and oxygen saturations were in the low 80s. She was given methylprednisolone, azithromycin, and ceftriaxone. COVID and influenza were negative. She was started on continuous oxygen support nasal cannula to keep O2 sats greater than 92%. She was transition to oral prednisone and did well with that. She made improvement over the next 2 days. Chest x-ray was negative for acute findings and procalcitonin was within normal limits so no further antibiotics were given. She is in improved condition today and a home oxygen evaluation has taken place we have set her up with home oxygen. She is discharged home in stable condition. Time Spent with Patient Time attestation: Total time spent providing and/or coordinating discharge services: Exam Narrative: Exam Narrative: General: No acute distress. Awake, alert, oriented x3. No pallor. No jaundice. Oropharynx: Clear. Mucous membranes moist. Cardiovascular: Regular rate and rhythm. No murmurs, gallops, or rubs. Respiratory: Good air movement, no crackles, occasional expiratory wheezes. Const: Vital Signs, click to edit/add: Vital Signs - 24 hr 02/02/23 16:57 02/02/23 17:23 02/02/23 19:00 Temperature 98.3 F Pulse Rate 80 Pulse Rate [Pulse Oximeter] 78 Respiratory Rate 20 Blood Pressure [Le ft Arm] 134/70 Blood Pressure [Ri ght Arm] Pulse Oximetry 96 96 Oxygen Delivery Me thod Nasal Cannula Oxygen Flow Rate 3 02/02/23 23:00 02/02/23 23:00 02/02/23 23:00 Temperature Pulse Rate 65 Pulse Rate [Pulse Oximeter] 764 H Respiratory Rate 20 Blood Pressure [Le ft Arm] Blood Pressure [Ri ght Arm] Pulse Oximetry 95 Oxygen Delivery Me thod Oxygen Flow Rate 02/02/23 23:00 02/03/23 03:00 02/03/23 07:00 Temperature 98 F 97.9 F 97.7 F Pulse Rate Pulse Rate [Pulse Oximeter] 64 63 79 Respiratory Rate 20 20 18 Blood Pressure [Le ft Arm] 127/65 128/70 Blood Pressure [Ri ght Arm] 121/61 Pulse Oximetry 95 96 94 Oxygen Delivery Me thod Nasal Cannula Nasal Cannula Nasal Cannula Oxygen Flow Rate 3 3 1 02/03/23 07:00 02/03/23 07:53 02/03/23 13:07 Temperature Pulse Rate 76 Pulse Rate [Pulse Oximeter] Respiratory Rate 20 Blood Pressure [Le ft Arm] Blood Pressure [Ri ght Arm] Pulse Oximetry 94 90 Oxygen Delivery Me thod Nasal Cannula Oxygen Flow Rate 1 DS: Data Data Completed and Pending Completed studies during hospitalization: Ordering Physician: Darryl Levin M.D. Date of Service: 02/01/23 Procedure(s): XR chest 1V portable Accession Number(s): [id number] cc: Gayathri Carroll PA-C; Darryl Levin M.D.~ For Patients: As a result of the Cures Act, medical imaging exams and procedure reports are released immediately into your electronic medical record. You may view this report before your referring provider. If you have questions, please contact your health care provider. INDICATION: Dyspnea. TECHNIQUE: Chest radiograph, 1 view. COMPARISON: Chest radiographs 01/14/2023. FINDINGS: Lines/Tubes/Devices: None. Mediastinum: Normal cardiac silhouette. Lungs: No focal consolidation. Linear bandlike opacifications of the lung bases likely due to subsegmental atelectasis and/or scarring. Airways: The trachea remains midline. Pleura: No pleural effusions or pneumothorax. Bones: No acute osseous abnormalities. Upper Abdomen: Unremarkable. IMPRESSION: No acute cardiopulmonary process. Dictated by Reynaldo Richardson MD @ 02/01/2023 6:00:03 PM (Electronically Signed) Discharge Plan Discharge Disposition: Home, Self-Care Date of Admission: 02/01/23 21:15 Attending Provider on Discharge: Sheron Healy Primary Care Provider: Gayathri Carroll Condition: Improved Anticipated Discharge Date/Time: 02/03/23 15:42 Discharge Medications: New prednisone 20 mg Tablet See Rx Instructions .ROUTE .COMPLEX Qty: 12 0RF Rx Instructions: Take 2 tabs daily for 2 days, then 1 tab daily for 5 days, then 1/2 tab daily for 5 days, then stop. nystatin 100,000 unit/mL suspension 5 ml PO QID 14 Days Qty: 280 0RF Rx Instructions: swish and swallow Continued mycophenolate mofetil 500 mg tablet 1,000 mg PO BID mycophenolate mofetil 250 mg capsule 250 mg PO BID Rx Instructions: WITH 1000 MG TO EQUAL 1250 MG benzonatate 200 mg capsule 200 mg PO TID PRN (Reason: cough) Qty: 30 1RF codeine-guaifenesin 10-100 mg/5 mL liquid 5 - 10 ml PO Q6H PRN (Reason: cough) Qty: 473 0RF nortriptyline 10 mg capsule 20 mg PO HS quetiapine 25 mg tablet 25 mg PO HS Dulera 50-5 mcg/actuation HFA aerosol inhaler 2 inh inhalation BID Mucus DM 30-600 mg tablet extended release 12 hr 1 tab PO BID PRN metronidazole 0.75 % cream 1 applic topical .1-2X/DAY Rx Instructions: TO FACE albuterol sulfate 90 mcg/actuation HFA aerosol inhaler 2 inh inhalation Q4H PRN Discontinued prednisone 20 mg tablet 40 mg PO DAILY Discharge Orders: Discharge Order (Routine); Ordered 02/03/23 Ordered By: Sheron Healy Patient Education: Prednisone (By mouth), Nystatin (By mouth), Oral Candidiasis (ED), Using Oxygen at Home (DC), RSV (Respiratory Syncytial Virus) (DC) Additional Instructions: Oxygen via NC at 2LPM continuous. Nystatin swish and swallow for thrush. Do not use Diflucan as it has an interaction with Quetiapine that can affect the rhythm of your heart. Pulmonology 1-2 months. Activity Level: Activity as Tolerated Discharge Diet: Regular Follow Up Appointments: Gayathri Carroll PA-C [Primary Care Provider] - (5-7 days) Forms: [facility] Info Instructions
== END 2023-02-03 17:05 | disposition home or self-care (01) ==
LOC: ED 19:12 → MEDSURG 21:16
PROVIDERS: Physician Assistant; Admitting Provider Family Medicine; Emergency Provider Family Medicine; PCP Physician Assistant Medical; Visit Provider Family Medicine
DX: J20.5 Acute bronchitis due to respiratory syncytial virus (principal); J84.9 Interstitial pulmonary disease, unspecified; D86.89 Sarcoidosis of other sites; D86.85 Sarcoid myocarditis; R09.02 Hypoxemia; E87.6 Hypokalemia; D84.821 Immunodeficiency due to drugs; R53.83 Other fatigue; B37.9 Candidiasis, unspecified; R06.2 Wheezing; Z79.899 Other long term (current) drug therapy; Z87.891 Personal history of nicotine dependence; Z11.52 Encounter for screening for COVID-19
CPT/HCPCS: 36415; 71045; 80048; 83735; 83880; 84145; 85025; 85027; 85379; 87631; 94640; 94761; 96365; 96372; 96375; 99285; G0378; A9270; J0696; J1650; J2930; J7512

== ENCOUNTER 2023-03-06 15:36 | Emergency (ER) | payer BC, SELFPAY ==
[2023-03-06 16:06] VITALS: BP 145/73; PULSE 71; RESP 20; TEMP 36.2; O2SAT 94; BMI 35.0
--- NOTE | 2023-03-06 16:33 | CRLHL7_ITS ---
For Patients: As a result of the Century Cures Act, medical imaging exams and procedure reports are released immediately into your electronic medical record. You may view this report before your referring provider. If you have questions, please contact your health care provider. INDICATION: Left flank pain TECHNIQUE: Axial images were obtained from the diaphragm to the pubic symphysis. Reformats were obtained in the coronal and sagittal plane. IV Contrast: None Oral Contrast: None COMPARISON: None. FINDINGS: Lower chest: There is a discoid atelectasis within the lung bases with some bronchial wall thickening in the right lower lobe and adjacent centrilobular nodularity. Prominent calcification of the mitral annulus. Liver: Normal in contour with a 13 millimeter cyst within the right lobe of the liver. Gallbladder and bile ducts: Status post cholecystectomy. Spleen: Unremarkable. Normal in size without mass. Pancreas: Unremarkable. No mass or inflammation. Adrenal glands: Unremarkable. No nodules. Kidneys: Nephrolithiasis with mild left hydronephrosis and fat stranding surrounding the left ureter. Obstructing 2 millimeter stone at the left ureterovesicular junction (series 2, image 127). Vasculature: Unremarkable. GI tract: The stomach is unremarkable. No dilated loops of large or small intestine. Unremarkable appendix. Pelvis: Unremarkable. Bones: Degenerative disc disease lumbar spine. IMPRESSION: 1. Nephrolithiasis with mild left hydronephrosis and obstructing 2 millimeter left ureterovesicular junction stone. 2. Bronchial wall thickening with centrilobular nodularity in the right lower lobe. This can be seen in an infectious bronchiolitis or prior inflammatory disease. Suggest follow-up chest CT in 4 weeks to assess for resolution. Please note that all CT scans at this facility use dose modulation, iterative reconstruction, and/or weight-based dosing when appropriate to reduce radiation dose to as low as reasonably achievable. Dictated by Lucas Kennedy MD @ 03/06/2023 6:24:00 PM (Electronically Signed)
--- NOTE | 2023-03-06 16:35 | ED_ITS ---
HPI - General Adult General Chief complaint: Flank Pain Stated complaint: Kidney stones Time Seen by Provider: 03/06/23 16:30 History of Present Illness HPI narrative: This 57-year-old female comes in with left flank pain that she rates at 8/10 in severity. It began about 4 hours prior to arrival and feels like a previous kidney stone. She did pass a kidney stone about 5 months ago. At that time CT imaging did show a couple other stones up in her left kidney. She does not report any vomiting or dysuria symptoms. Prior to this she was in good health. Related Data Home Medications Medication Instructions Recorded Confirmed mometasone-formoterol HFA 50 mcg-5 2 inh inhalation BID 09/29/21 02/02/23 mcg/actuation aerosol inhaler (Dulera) nortriptyline 10 mg capsule 20 mg PO HS 09/29/21 02/02/23 quetiapine 25 mg tablet 25 mg PO HS 09/29/21 02/02/23 mycophenolate mofetil 250 mg 250 mg PO BID 01/14/23 02/02/23 capsule mycophenolate mofetil 500 mg tablet 1,000 mg PO BID 01/14/23 02/02/23 albuterol sulfate 90 mcg/actuation 2 inh inhalation Q4H PRN 02/02/23 02/02/23 aerosol inhaler dextromethorphan-guaifenesin 30 1 tab PO BID PRN 02/02/23 02/02/23 mg-600 mg tablet extended [id number] hr (Mucus DM) metronidazole 0.75 % topical cream 1 applic topical .1-2X/DAY 02/02/23 02/02/23 Previous Rx's Medication Instructions Recorded benzonatate 200 mg capsule 200 mg PO TID PRN cough #30 caps 01/29/23 codeine 10 mg-guaifenesin 100 mg/5 5 - 10 ml PO Q6H PRN cough #473 mL 01/29/23 mL oral liquid nystatin 100,000 unit/mL oral 5 ml PO QID 2 weeks #280 mL 02/03/23 suspension prednisone 20 mg tablet See Rx Instructions .Route 02/03/23 .COMPLEX #12 tabs hydrocodone 5 mg-acetaminophen 325 1 tab PO Q4-6H PRN pain #15 tabs 03/06/23 mg tablet ketorolac 10 mg tablet 10 mg PO Q8H 5 days #15 tabs 03/06/23 ondansetron HCl 4 mg tablet 4 mg PO Q6H #10 tabs 03/06/23 Allergies Allergy/AdvReac Type Severity Reaction Status Date / Time Sulfa (Sulfonamide Allergy Nausea Verified 01/29/23 13:29 Antibiotics) Review of Systems Status of ROS: Reports: 10 or more systems reviewed and unremarkable except as noted in History and below Narrative: Constitutional: No fevers, no weight gain or loss. Eyes: No discharge. No vision changes. HENT: No congestion, no sore throat, no ear pain. Cardiovascular: No chest pain, no palpitations. Respiratory: No shortness of breath, no wheezes, no cough. Gastrointestinal: N left flank pain as described above. Genitourinary: No dysuria, no hematuria. Musculoskeletal: Normal range of motion. Skin: No rashes, no pruritis. Neurological: No dizziness, weakness, sensory change, speech change. Endo/Heme/Allergies: No bruising or bleeding. No polydipsia. Pysch: no suicidality, no anxiety, no insomnia. All other systems reviewed and are negative. [facility] Medical History (Updated 03/06/23 @ 18:49 by Scot Ybarra MD) Ventricular trigeminy ?I49.8 - Other specified cardiac arrhythmias (ICD-10) Mitral valve regurgitation ?I34.0 - Nonrheumatic mitral (valve) insufficiency (ICD-10) Depression ?F32.A - Depression, unspecified (ICD-10) Anxiety ?F41.9 - Anxiety disorder, unspecified (ICD-10) Sarcoidosis ?D86.9 - Sarcoidosis, unspecified (ICD-10) 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 - Immunodeficiency due to drugs (ICD-10) ?Z79.899 - Other terminal operations supervisor (current) drug therapy (ICD-10) Social History What is your current living situation?: I presently have a place to live Problems where you live: no known problems Problems where you live details: n/a In the past 12 months, utilities in danger of being shut off: no In past 12 months, lack of transportation kept you from medical appts, meetings, work, or getting things needed for daily living: no In the past 12 mos, have been you worried that your food would run out before you had money to buy more?: never true In the past 12 mos, the food you bought just didn't last and you didn't have money to buy more?: never true Highest level of school completed/degree received: Master's degree Smoking Status: Former smoker Do you use any of these nicotine containing products: None Nicotine containing products detail: half pack a day for 10 years Second hand tobacco smoke exposure: No How often do you have a drink containing alcohol: never How often do you have six or more drinks on one occasion: Never AUDIT-C Alcohol total score: 0 Non-prescribed substance use: denies use Caffeine: Yes (one 16 oz coke daily) How often does anyone, including family, friends and others, physically hurt you : never How often does anyone, including family, friends and others, insult or talk down to you: never How often does anyone, including family, friends and others, threaten you with harm: never How often does anyone, including family, friends and others, scream or curse at you: never service: Yes Exam Narrative: Exam Narrative: Constitutional: Well-developed, well-nourished, no acute distress. HEENT: Normocephalic, atraumatic. Neck: Normal range of motion. Nontender. Supple. Heart: Regular. No murmurs. Normal rate. Intact distal pulses. Lungs: Clear to auscultation. No chest discomfort. No wheezes, rhonchi, or rales. Abdomen: Normal bowel sounds. No rebound tenderness. Left flank pain. Genitalia: Deferred. Back: No midline tenderness. Normal range of motion. Extremities: Normal range of motion. No injury. Skin: Intact. No rash. Warm. No erythema or pallor. Neurologic: No altered sensation. No weakness. Alert and oriented. Psychiatric: No suicidality. No anxiety or depression. No insomnia. Nursing notes and vitals signs are reviewed. Const: Vital Signs, click to edit/add: Vital Signs - 24 hr 03/06/23 16:06 03/06/23 17:52 Temperature 97.2 F L Pulse Rate [Pulse Oximeter] 71 75 Respiratory Rate 20 18 Blood Pressure [Ri ght Upper Arm] 145/73 H 119/57 L Pulse Oximetry 94 97 Oxygen Delivery Me thod Room Air Room Air Course Vital Signs Vital signs: Initial Vital Signs Temperature 97.2 F L 03/06/23 16:06 Temperature Source Temporal Artery Scan 03/06/23 16:06 Pulse Rate 71 03/06/23 16:06 Pulse Rhythm Regular 03/06/23 16:06 Respiratory Rate 20 03/06/23 16:06 Blood Pressure 145/73 H 03/06/23 16:06 Blood Pressure Mean 97 03/06/23 16:06 Blood Pressure Position Sitting 03/06/23 16:06 Pulse Oximetry 94 03/06/23 16:06 Oxygen Delivery Method Room Air 03/06/23 16:06 Vital Signs Temperature 97.2 F L 03/06/23 16:06 Pulse Rate 71 03/06/23 16:06 Respiratory Rate 20 03/06/23 16:06 Blood Pressure 145/73 H 03/06/23 16:06 Pulse Oximetry 94 03/06/23 16:06 Oxygen Delivery Method Room Air 03/06/23 16:06 Temperature 97.2 F L 03/06/23 16:06 Pulse Rate 75 03/06/23 17:52 Respiratory Rate 18 03/06/23 17:52 Blood Pressure 119/57 L 03/06/23 17:52 Pulse Oximetry 97 03/06/23 17:52 Oxygen Delivery Method Room Air 03/06/23 17:52 Medications Administered Medications: Discontinued Medications Generic Name Dose Route Start Last Admin Trade Name Freq PRN Reason Stop Dose Admin Hydromorphone HCl 0.5 mg 03/06/23 16:33 03/06/23 16:55 Hydromorphone 0.5 Mg/0.5 Ml Inj IVP 03/06/23 16:34 0.5 mg ONCE ONE Administration Ketorolac Tromethamine 30 mg 03/06/23 16:33 03/06/23 16:53 Ketorolac 30 Mg/Ml Inj IVP 03/06/23 16:34 30 mg ONCE ONE Administration Ondansetron HCl 4 mg 03/06/23 16:33 03/06/23 16:50 Ondansetron 2 Mg/Ml Inj IVP 03/06/23 16:34 4 mg ONCE ONE Administration Medical Decision Making MDM Narrative Medical decision making narrative: This patient comes in with left-sided flank pain suspicious for a kidney stone. She was in some significant discomfort when I initially visited her so an IV was placed and the patient did receive Toradol 30 mg and Dilaudid 0.5 mg along with Zofran 4 mg. This brought complete relief to her symptoms. CT imaging is obtained and does show evidence of a 2 mm stone at the left ureterovesical junction. The patient has some nodularity in her lungs as an incidental finding. I a related this to her and she stated that she had a PET scan yesterday as she has sarcoidosis. Additionally she had RSV about a month ago. This patient is okay to return home. Perhaps she has passed the stone into her bladder but if pain were to recur I did prescribe Toradol and [place] and Zofran. Lab Data Labs: Lab Results 03/06/23 Range/Units 16:40 Urine Color Yellow (Yellow) Urine Appearance Clear (Clear) Urine pH 5.5 (5.0-8.5) Ur Specific [place] >= 1.030 (1.000-1.030) Urine Protein Negative (Negative) Urine Glucose (UA) Negative (Negative) Urine Ketones 2+ A (Negative) Urine Blood 2+ A (Negative) Urine Nitrite Negative (Negative) Urine Bilirubin 1+ A (Negative) Urine Urobilinogen 0.2 (0.2-1.0) Ur Leukocyte Esterase Negative (Negative) Urine RBC 10-25 A (0-2) Urine WBC 5-10 A (0-5) Ur Squamous Epith Cells Few (None-Few) Amorphous Sediment Few A (None) Urine Bacteria None (None) Imaging Data CT scan - abdomen: Radiologist's impression: 1. Nephrolithiasis with mild left hydronephrosis and obstructing 2 millimeter left ureterovesicular junction stone. 2. Bronchial wall thickening with centrilobular nodularity in the right lower lobe. This can be seen in an infectious bronchiolitis or prior inflammatory disease. Suggest follow-up chest CT in 4 weeks to assess for resolution. Discharge Plan Discharge Clinical Impression: Calculus, ureteral Patient Disposition: Home, Self-Care Condition: Improved Additional Instructions: Take medication as needed and directed. Follow up with MD or return if worsening. Prescriptions: New hydrocodone-acetaminophen 5-325 mg tablet 1 tab PO Q4-6H PRN (Reason: pain) Qty: 15 0RF ondansetron HCl 4 mg tablet 4 mg PO Q6H Qty: 10 0RF ketorolac 10 mg tablet 10 mg PO Q8H 5 Days Qty: 15 0RF No Action mycophenolate mofetil 500 mg tablet 1,000 mg PO BID mycophenolate mofetil 250 mg capsule 250 mg PO BID Rx Instructions: WITH 1000 MG TO EQUAL 1250 MG benzonatate 200 mg capsule 200 mg PO TID PRN (Reason: cough) Qty: 30 1RF codeine-guaifenesin 10-100 mg/5 mL liquid 5 - 10 ml PO Q6H PRN (Reason: cough) Qty: 473 0RF nortriptyline 10 mg capsule 20 mg PO HS quetiapine 25 mg tablet 25 mg PO HS Dulera 50-5 mcg/actuation HFA aerosol inhaler 2 inh inhalation BID Mucus DM 30-600 mg tablet extended release 12 hr 1 tab PO BID PRN metronidazole 0.75 % cream 1 applic topical .1-2X/DAY Rx Instructions: TO FACE albuterol sulfate 90 mcg/actuation HFA aerosol inhaler 2 inh inhalation Q4H PRN prednisone 20 mg Tablet See Rx Instructions .ROUTE .COMPLEX Qty: 12 0RF Rx Instructions: Take 2 tabs daily for 2 days, then 1 tab daily for 5 days, then 1/2 tab daily for 5 days, then stop. nystatin 100,000 unit/mL suspension 5 ml PO QID 14 Days Qty: 280 0RF Rx Instructions: swish and swallow Follow Up/Referrals: Gayathri Carroll PA-C [Primary Care Provider] - Stand Alone Forms: [facility] Info Instructions
[2023-03-06] MEDS: ONDANSETRON 2 MG/ML inj 4 MG IVP (16:50)
--- OUTSIDE RECORDS SUMMARY | 2023-03-06 16:51 | XMS_ITS | Clinical Summary ---
Author Name Unknown Organization [facility] Address [address] [place] [address] Care Team Providers Care Perforator Operator Name Role Phone Unavailable Primary Care Provider Unavailabl e Source Comments Patient records contain information from all sites at [facility]. For routine questions regarding patient records, call [phone] during business hours, M-F 8:00 AM - 5:00 PM Central Time. Record requests for emergency care only can be directed to [phone] at any time.[facility] Allergies Active Allergy Reactions Criticality Noted Date Comments Sulfa (Sulfonamide Antibiotics) Nausea And Vomiting 01/30/2021 Medications Medication Sig Dispensed Refills Start Date End Date Status albuterol 90 mcg/actuation inhaler 0 12/13/2020 Act [facility] clobetasoL (TEMOVATE) 0.05 % ointment Apply topically. 0 01/30/2021 Act [facility] mometasone-formoterol (Dulera) 200-5 mcg/actuation inhaler Inhale 2 puffs 2 (two) times a day. 0 09/09/2021 Active nortriptyline (PAMELOR) 10 mg capsule Take 20 mg by mouth. 0 05/22/2021 Active QUEtiapine (SEROquel) 25 mg tablet Take 25 mg by mouth. 0 05/22/2021 Active omeprazole (PriLOSEC) [address] capsule Take 20 mg by mouth every morning before breakfast. 0 Active Active Problems Problem Noted Date Diagnosed Date Sarcoidosis 11/21/2021 Lung Interstitial Disease 11/21/2021 Social History Tobacco Use Types Packs/Day Years Used Date Smoking Tobacco: Former Cigarettes 10 Q uit: 2004 Smokeless Tobacco: Never Tobacco Cessation:Counseling Given: Not Answered Humiliation, Afraid, Rape, and Kick questionnair e Answer Date Recorded Within the last year, have y ou been afraid of your partner or ex-partner? No 11/22/2021 Within the last year, have y ou been humiliated or emotionally abused in other ways by your partner or ex-partner? No Within the last year, have y ou been kicked, hit, slapped, or otherwise physically hurt by your partner or ex-partner? No 11/22/2021 Within the last year, have y ou been raped or forced to have any kind of sexual activity by your partner or ex-partner? No 11/22/2021 Social Connection and Isolat ion Panel [NHANES] Answer Date Recorded In a typical week, how many times do you talk on the phone with family, friends, or neighbors? Twice a week 11/22/2021 How often do you get togethe r with friends or relatives? Once a week 11/22/2021 How often do you attend [facility] or scientology services? More than 4 times per year 11/22/2021 Do you belong to any clubs o r organizations such as evangelical groups, unions, fraternal or athletic groups, or school groups? Yes 11/22/2021 How often do you attend meet ings of the clubs or organizations you belong to? More than 4 times per year 11/22/2021 Are you , , di vorced, , never , or living with a partner? 11/22/2021 AUDIT-C Answer Date Recorded Q1: How often do you have a drink containing alc ohol? 2-4 times a month 11/22/2021 Q2: How many drinks containi ng alcohol do you have on a typical day when you are drinking? 1 or 2 11/22/2021 Q3: How often do you have si x or more drinks on one occasion? Never 11/22/2021 Overall Financial Resource Strain (CARDIA) Answe r Date Recorded How hard is it for you to pa y for the very basics like food, housing, medical care, and heating? Not hard at all 11/22/2021 [facility] of Occupat ional Health - Occupational Stress Questionnaire Answer Date Recorded Do you feel stress - tense, restless, nervous, or anxious, or unable to sleep at night because your mind is troubled all the time - these days? Only a little 11/22/2021 Exercise Vital Sign Answer Date Recorde d On average, how many days pe r week do you engage in moderate to strenuous exercise (like a brisk walk)? 1 day 11/22/2021 On average, how many minutes do you engage in exercise at this level? 20 min 11/22/2021 Hunger Vital Sign Answer Date Recorded Within the past 12 months, y ou worried that your food would run out before you got the money to buy more. Never true 11/23/19 Within the past 12 months, t he food you bought just didn't last and you didn't have money to get more. Never true 11/22/2021 PRAPARE - Transportation Answer Date Re corded In the past 12 months, has l ack of transportation kept you from medical appointments or from getting medications? No 10/27 In the past 12 months, has l ack of transportation kept you from meetings, work, or from getting things needed for daily living? No 11/22/2021 Housing Stability Vital Sign Answer Juan e Recorded In the last 12 months, was t here a time when you were not able to pay the mortgage or rent on time? No 11/22/2021 In the last 12 months, how many places have you lived? 1 11/22/2021 In the last 12 months, was t here a time when you did not have a steady place to sleep or slept in a skilled nursing (including now)? No 11/22/2021 Nutrition Answer Date Recorded Nutrition: EVOO Fat Source No 11/22 On average, how many serving s of fruits and vegetables do you eat per day (serving size is equal to 1 cup or approximately the size of a tennis ball)? 2-3 11/22/2021 Dental Answer Date Recorded Dental: Regular Dentist Yes 11/23/19 Employment Answer Date Recorded Employment status Employed and actively working without restrictions 11/22/2021 Education Answer Date Recorded What is the highest level of school you have completed or the highest degree you have received? Master's degree (e.g., MA, MS, Arti, MEd, GENERAL LABOR FORKLIFT OPERATOR, [employer]) 11/22/2021 Sex and Gender Information Value Date Recorded Sex Assigned at Female 11/22/2021 11:24 PM CDT Gender Identity Female 11/22/2021 11:24 PM CDT Sexual Orientation Lesbian or Alonso 11/22/2021 11 :24 PM CDT Last Filed Vital Signs Vital Sign Reading Time Taken Comments Blood Pressure 141/86 11/21/2021 7:47 AM CDT Pulse 99 11/21/2021 7:47 AM CDT Temperature 35.1 ??C (95.2 ??F) 11/21/2021 7:47 AM CD T Respiratory Rate - - Oxygen Saturation 97% 11/21/2021 7:47 AM CDT Inhaled Oxygen Concentration - - Weight 109 kg (239 lb 3.2 oz) 11/21/2021 7:47 AM CDT Height 172.1 cm (5' 7.76) 11/21/2021 7:47 AM CD T Body Mass Index 36.63 11/21/2021 7:47 AM CDT Plan of Treatment Health Maintenance Due Date Last Done Comments CT Colonography 1963 Cervical Cancer Screening 1963 Cologuard 1963 Colonoscopy 1963 Colorectal Cancer Screening 1963 FIT 1963 HIV Screening 1963 Hepatitis B Vaccines (1 of 3 - 3-dose series) 1963 Hepatitis C Screening 1963 Mammogram 1963 Pneumococcal vaccine (0-64 years) (1 of 2 - PCV) 1969 Zoster Vaccines (1 of 2) 1982 Depression Screening (Annual PHQ-2) 02/25/2022 Fasting Glucose for Diabetes Screening 02/21/2025 02/21/2022, 01/26/2022, 12/28/2021, Additional history exists Lipid (Cholesterol) Screening 05/22/2026 05/22/2021 DTaP,Tdap,and Td Vaccines (3 - Td or Tdap) 08/15/2032 08/15/2022, 09/02/2013 COVID-19 Vaccine Completed 12/25/2022, 07/2021, 09/28/2021, Additional history exists Influenza Vaccine Completed 12/25/2022, , 04/21/2020 HPV Vaccines Aged Out No longer eligi ble based on patient's age to complete this topic
--- OUTSIDE RECORDS SUMMARY | 2023-03-06 16:51 | XMS_ITS | Encounter Summary ---
Author Name Unknown Organization [facility] Address [address] [place] [address] Care Team Providers Care Salt Maker Name Role Phone Unavailable Primary Care Provider Unavailabl e Encounter Details Date Type Department Care Team (Latest Contact Info) Description 03/23/2022 Clinical Communication Department of Cardiovascular Medicine in [place], [place] [address] [place] [phone] Neisha Nolan, JESSIKA, C.N.P., M.S.N. [address] [place] [phone] Social History Tobacco Use Types Packs/Day Years Used Date Smoking Tobacco: Former Cigarettes 10 Q uit: 2004 Smokeless Tobacco: Never Humiliation, Afraid, Rape, and Kick questionnair e [...] week 11/22/2021 How often do you attend chur or restoration services? More than 4 times per year 11/22/2021 Do you belong to any clubs o r organizations such as confucianism groups, unions, fraternal or athletic groups, or [...] and heating? Not hard at all 11/22/2021 [facility] of Occupat ional Health - Occupational Stress [...] money to buy more. Never true 11/23/19 22 Within the past 12 months, t he [...] or slept in a detention (including now)? No 11/22/2021 Nutrition Answer Date [...] Master's degree (e.g., MA, MS, Arti, MEd, MEDICAL OFFICE SCHEDULER, [employer]) 11/22/2021 Sex and Gender Information Value Date Recorded Sex Assigned at Female 11/22/2021 11:24 PM CDT Gender Identity Female 11/22/2021 11:24 PM CDT Sexual Orientation Lesbian or Alonso 11/22/2021 11 :24 PM CDT documented as of this encounter Miscellaneous Notes * Telephone Encounter - Juan Alberto Cline - 03/26/2022 11:50 AM CST Perfect, I have that added, please let me know or order the testing you want done! Thank you! NG COMMISSIONER * Telephone Encounter - Juan Alberto Cline - 03/23/2022 4:18 PM CST Lin majano, Patient looking for follow up. I think your in clinic on 05/17 without any patients added. Okay to see on that day? If so, what testing would you like done NG COMMISSIONER documented in this encounter Plan of Treatment Not on file documented as of this encounter Visit Diagnoses Not on filedocumented in this encounter
--- OUTSIDE RECORDS SUMMARY | 2023-03-06 16:51 | XMS_ITS | Encounter Summary ---
Author Name Unknown Organization [facility] Address [address] [place] [address] Care Team Providers Care Telephone Assembler Name Role Phone Unavailable Primary Care Provider Unavailabl e Reason for Visit * Appointment Request (Routine) - Closed Specialty Diagnoses / Procedures Referred By Contac t Referred To Contact Cardiovascular Disease Diagnoses Sarcoidosis Referral ID Status Reason Start Date Expiration Date Visits Re quested Visits Authorized [id number] Closed 03/26/2022 03/26/2023 1 1 Encounter Details Date Type Department Care Team (Latest Contact Info) Description 05/17/2022 9:00 AM CDT Telemedicine Department of Cardiovascular Medicine in [place], [place] [address] [place] [phone] Neisha Nolan, WATER PLANT MAINTENANCE MECHANIC, C.N.P., M.S.N. [address] [place] [phone] Sarcoidosis (Primary Dx) Social History Tobacco Use Types Packs/Day Years [...] week 11/22/2021 How often do you attend [facility] or jew services? More than 4 times per year 11/22/2021 Do you belong to any clubs o r organizations such as taoist groups, unions, fraternal or athletic groups, or [...] and heating? Not hard at all 11/22/2021 [facility] of Occupat ional Health - Occupational Stress [...] place to sleep or slept in a alf (including now)? No 11/22/2021 Nutrition Answer Date [...] Master's degree (e.g., MA, MS, Arti, MEd, PROFILER OPERATOR, [employer]) 11/22/2021 Sex and Gender Information Value Date Recorded Sex Assigned at Female 11/22/2021 11:24 PM CDT Gender Identity Female 11/22/2021 11:24 PM CDT Sexual Orientation Lesbian or Alonso 11/22/2021 11 :24 PM CDT documented as of this encounter Consult Notes * Neisha Nolan, JESSIKA, C.N.P. - 05/17/2022 9:00 AM CDT SUBJECTIVE Reason for Consultation: 1. Second opinion sarcoid CHIEF COMPLAINT/REASON FOR CONSULT Systemic sarcoid HISTORY OF PRESENT ILLNESS Ms. Nanci Rice is a very pleasant 57 y.o. 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 Ms. Rice describes exertional shortness of breath that dates back about 5 years. This has become progressively worse over the years. She was found to have findings suggestive of pulmonary sarcoid on chest xray and chest CT scan. She subsequently underwent bronchoscopy with EBUS-guided transbronchial needle aspiration of intrathoracic lymph nodes that yielded granulomatous inflammation. Endobronchial biopsies also demonstrated non-necrotizing granulomas. Special stains were negative for microorganisms. She was evaluated locally as well as here by our pulmonary colleagues. Please see Dr. García comprehensive note. PFTs where normal and Dr. García did not feel there is indication to continue prednisone or immunosuppression from pulmonary perspective but defers to cardiology in regards to cardiac treatment. I am performing this consultation via video visit because all relevant testing has been recnetly done locally and I did not find there would be incrmeental benefit in re-testing here at this [facility]. . Ms. Rice also underwent a cardiac evaluation that included cardiac MR study and cardiac PET. MRI revealed focal mid-myocardial delayed enhancement in basal anterior septum. Cardiac PET: 1. Resting myocardial perfusion with rubidium was normal. 2. With 18 FDG imaging no focal myocardial uptake was observed. SUV max: 2.6. 3. FDG uptake pattern does not suggest active cardiac sarcoidosis or other inflammatory process. 4. Overall left ventricular systolic function was normal without wall motion abnormalities. 5. The resting LVEF was calculated to be 59%. 6. Left ventricular cavity size was normal (EDV 101 ml). 7. There were no prior studies available for comparison. Cardiac MR was obtained prior to initiation of steroids. Cardiac PET was after initiation of steroids and cellcept. EF on MRI and echo were noted to be normal. LV size and function normal. EF 55-60%. Ms. Rice was started on prednisone treatment at 40 mg per day for a duration of 2 weeks followed by 20 mg a day for the past 3 to 4 weeks or so. Ms. Rice describes about a 14-pound weight gain along with facial changes and hair loss on prednisone treatment. She was subsequently weaned off of prednisone and initiated on Cellcept in December 2021. Ms. Rice has has significant issues with palpitations and arrhythmias. She underwent PVC ablationin February. She had been symptomatic with palpitations in that she was dizzy and lightheaded and experiencing presyncope. She has never passed out. She denies chest pain. She notes lower extremity edema and shortness of breath.. She feels improved since PVC ablation. OBJECTIVE There were no vitals filed for this visit. BP Readings from Last 3 Encounters: 11/21/21 141/86 DIAGNOSTICS Pertinent laboratory studies have been reviewed and are notable for: Hospital Outpatient Visit on 11/23/2021 Component Date Value Ejection Fraction 11/23/2021 59 Sinus of Valsalva 11/23/2021 41 Mid-Ascending Aorta 11/23/2021 42 Wall Motion Score Index 11/23/2021 1.13 MV E Velocity 11/23/2021 0.50 MV A Velocity 11/23/2021 0.90 MV E/A 11/23/2021 0.56 MV e' Velocity Medial 11/23/2021 0.08 MV e' Velocity Lateral 11/23/2021 0.08 MV E/e' Medial 11/23/2021 6.30 MV E/e' Lateral 11/23/2021 6.30 Left ventricular stroke * 11/23/2021 39 Cardiac Output 11/23/2021 5.98 Cardiac Index 11/23/2021 2.72 Tricuspid Annular S??? 11/23/2021 0.13 RA Pressure 11/23/2021 5 AV mean gradient 11/23/2021 4 Aortic valve area 11/23/2021 3.14 Aortic Valve Dimensionle* 11/23/2021 0.64 MV mean gradient 11/23/2021 2 MV regurgitant volume 11/23/2021 48 LA Volume Index 11/23/2021 31 Aortic Valve Systolic Pe* 11/23/2021 1.40 Appointment on 11/22/2021 Component Date Value Ventricular Rate ECG/Min 11/22/2021 84 PA Interval 11/22/2021 142 QRSD Interval 11/22/2021 86 QT Interval 11/22/2021 352 QTC Interval 11/22/2021 415 P [place] 11/22/2021 53 R [place] 11/22/2021 -10 T Wave [place] 11/22/2021 46 Appointment on 11/22/2021 Component Date Value VC MAX POST 11/22/2021 3.01 PostFVC 11/22/2021 3.01 PostFEV1 11/22/2021 2.22 FEV1/FVC POST 11/22/2021 73.72 FEF 25-75 % POST 11/22/2021 1.62 PEF POST 11/22/2021 5.80 FET POST 11/22/2021 7.61 DLCO SINGLE BREATH POST 11/22/2021 18.30 DLCOC SINGLE BREATH POST 11/22/2021 18.19 HB 11/22/2021 13.60 VA SINGLE BREATH POST 11/22/2021 4.27 TLC POST 11/22/2021 4.29 VC POST 11/22/2021 3.00 FRCPLETH POST 11/22/2021 2.06 RV 11/22/2021 1.29 RV % TLC POST 11/22/2021 30.07 VC MAX PRE 11/22/2021 3.01 FVC 11/22/2021 2.88 FEV1 11/22/2021 2.18 FEV1/FVC 11/22/2021 75.68 DZZ91-46% 11/22/2021 1.72 PEF PRE 11/22/2021 6.00 FET PRE 11/22/2021 6.23 SUBSTANCE POST 11/22/2021 Albuterol DOSE POST 11/22/2021 2 Puff % PRED VC MAX 11/22/2021 83 % FVC% 11/22/2021 79 % FEV1% 11/22/2021 76 % % PRED FEV1/FVC 11/22/2021 96 % % PRED FEF 25-75% 11/22/2021 68 % % PRED PEF 11/22/2021 96 % PRED TLC 11/22/2021 5.82 PRED RV 11/22/2021 1.93 PRED VC MAX 11/22/2021 3.65 PRED FVC 11/22/2021 3.65 PRED FEV 1 11/22/2021 2.86 PRED FEV1/FVC 11/22/2021 79.0 PRED FEF 25-75% 11/22/2021 2.53 PRED PEF 11/22/2021 6.2 PRED DLCO 11/22/2021 23.0 PRED DLCOc 11/22/2021 23.0 Hospital Outpatient Visit on 11/21/2021 Component Date Value Angiotensin Converting E* 11/21/2021 18 Hemoglobin 11/21/2021 13.6 Hematocrit 11/21/2021 42.9 Erythrocytes 11/21/2021 4.81 MCV 11/21/2021 89.2 RBC Distrib Width 11/21/2021 15.6 Platelet Count 11/21/2021 255 Leukocytes 11/21/2021 9.8 (H) Neutrophils 11/21/2021 8.66 (H) Lymphocytes 11/21/2021 0.50 (L) Monocytes 11/21/2021 0.54 Eosinophils 11/21/2021 0.04 Basophils 11/21/2021 0.06 Potassium, S 11/21/2021 4.4 Sodium, S 11/21/2021 141 Chloride, S 11/21/2021 101 Bicarbonate, S 11/21/2021 29 Anion Gap 11/21/2021 11 BUN (Blood Urea Nitrogen* 11/21/2021 12 Creatinine 11/21/2021 0.98 Estimated GFR (eGFR) 11/21/2021 67 Calcium, Total, S 11/21/2021 9.8 Glucose, S 11/21/2021 157 (H) Protein, Total, S 11/21/2021 6.0 (L) Albumin, S 11/21/2021 4.0 Aspartate Aminotransfera* 11/21/2021 15 Alkaline Phosphatase, S 11/21/2021 96 Alanine Aminotransferase* 11/21/2021 20 Bilirubin, Total, S 11/21/2021 0.5 C-Reactive Protein (CRP)* 11/21/2021 <3.0 NT-Pro BNP 11/21/2021 108 TSH, Sensitive 11/21/2021 1.1 Hospital Outpatient Visit on 11/21/2021 Component Date Value Min Heart Rate 11/22/2021 57 Max Heart Rate 11/22/2021 117 Mean Heart Rate 11/22/2021 80 VE Total Beats 11/22/2021 5611 VE Percent Beats 11/22/2021 5 SVE Total Beats 11/22/2021 1620 SVE Percent Beats 11/22/2021 2 AF Count 11/22/2021 0 AF Duration 11/22/2021 0 AF [place] 11/22/2021 0 Symptom Count 11/22/2021 1 Pertinent imaging studies have been reviewed and are notable for: ECG: IMPRESSION: Normal sinus rhythm Right atrial enlargement Nonspecific T wave abnormality No previous ECGs available Holter: 1. The basic rhythm was sinus. Rare junctional escape complexes were seen following ventricular ectopy. [...] A total of 1 symptomatic event was noted. The rhythm was sinus, heart rate of 94 bpm. Single SVPCs and VPCs were noted. Echocardiogram: Final Impressions 1. Normal left ventricular chamber size, regional wall motion abnormalities were present (see wall motion graphics), calculated 2-D four chamber monoplane volumetric ejection fraction 59%. 2. Normal right ventricular chamber size, normal systolic function, unable to detect peak tricuspidregurgitation velocity for pulmonary artery systolic pressure calculation. 3. Mitral valve posterior leaflet prolapse. Moderate mitral valve regurgitation. Regurgitant volume(PISA) 48 mL, ERO 0.22 cm2. 4. Moderately calcified mitral annulus. Mitral valve mean diastolic gradient 2 mmHg (HR 74 bpm). 5. Mildly enlarged mid ascending aorta diameter of 42 mm, upper limit of normal for age, sex and BSA is 39 mm. 6. Mildly enlarged sinus of Valsalva diameter of 41 mm, upper limit of normal for age, sex and BSA is 39 mm. 7. Normal inferior vena cava size with normal inspiratory collapse (>50%). 8. No pericardial effusion. Cardiac MRI: IMPRESSION: 1. Normal left ventricular size and systolic function. RVEF = 65%. Focal mild mid myocardial delayed enhancement in the basal anterior septum which is nonspecific but can be seen with sarcoidosis or scarring. No definite evidence of myocardial edema in this location. The apparent increased T2 values in the apical segments are not reliably demonstrated on all views and may be artifactual. 2. Mildly thickened mitral valve with mild posterior leaflet prolapse and mild regurgitation. 3. Tricuspid aortic valve with mild regurgitation. 4. Mild dilation of the ascending aorta, 40 mm. 5. Mild mediastinal and bilateral hilar lymphadenopathy and bilateral perihilar predominant perilymphatic pulmonary nodularity compatible with sarcoidosis as better demonstrated on CT chest 08/24/2021. CT Chest without IV Contrast Impression 1. Multiple prominent borderline sized mediastinal and hilar lymph nodes compatible with sarcoidosis. The adenopathy has not significantly changed since the prior outside exam. 2. Patchy bilateral areas of lung nodularity in a somewhat perihilar distribution consistent with pulmonary parenchymal involvement by sarcoidosis, unchanged. 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 Rice is being seen via video visit today for second opinion on cardiac sarcoid. Her primary symptoms have been shortness of breath and palpitations. She has had significant relief since the ablation. She was started on prednisone after cardiac MRI. While that did show scaring that could be related to sarcoid, it did not show definitive evidence of active inflammation. The Cardiac PET had been obtained after having been on several months of prednisone and a short period after starting Cellcept. It is reassuring that there was no active inflammation on the PET scan or perfusion defect butthe timing of the tests make it hard to determine if there was a period of active inflammation or if the inflammation was treated by the medications. It is possible that she has cardaic sarcoid without active inflammation at this point. She may havehad active inflammation in the past. I would recommend continuation of the current regimen of CellCept as it seems to be effectively suppressing any inflammation that may have been present. I would recommend to repeat Cardiac PET 6 months after Cellcept initiation. If that PET scan is without perfusion or FDG abnormalities, I would recommend an additional 6 -12 months of treatment and to again repeat cardiac PET. At the 12- 18 month time period post initiation of Cellcept, if the Cardiac PET is normal, I would recommend trial of weaning off of Cellcept. If at any point the Cardiac PET reveals active inflammation, this would require escalation of the immunosuppressive regimen. If that becomes the case, we would be happy to re-engage in the care and provide additional recommendations. At this point, Ms. Rice is planning to continue care locally but I have offered for us to see herat anytime to provide additional treatment or consultation. She verbalized understanding of this plan and is satisfied with the information provided to her today. She knows she may reach out at anytime with questions. documented in this encounter Plan of Treatment Not on file documented as of this encounter Visit Diagnoses Diagnosis Sarcoidosis- Primary documented in this encounter
--- OUTSIDE RECORDS SUMMARY | 2023-03-06 16:51 | XMS_ITS ---
Author Name Unknown Organization [facility] Address [address] [place] [address] Care Team Providers Care Customer Solutions Representative Name Role Phone Unavailable Unavailable Unavailable Surgery Details Not on file Complications Check Surgery Details section. Procedure Estimated Blood Loss Check Surgery Details section. Procedure Findings Check Surgery Details section. Procedure Specimens Taken Check Surgery Details section.
--- OUTSIDE RECORDS SUMMARY | 2023-03-06 16:51 | XMS_ITS | Referral Summary ---
Author Name Unknown Organization [facility] Address [address] [place] [id number] Care Team Providers Care Customer Service Cashier Name Role Phone Unavailable Primary Care Provider Unavailabl e Source Comments Patient records contain information from all sites at [facility]. For routine questions regarding patient records, call [phone] during business hours, M-F 8:00 AM - 5:00 PM Central Time. Record requests for emergency care only can be directed to [phone] at any time.[facility] Allergies Active Allergy Reactions Criticality Noted Date [...] week 11/22/2021 How often do you attend [facility] or yarsanism services? More than 4 times per year 11/22/2021 Do you belong to any clubs o r organizations such as shinto groups, unions, fraternal or athletic groups, or [...] and heating? Not hard at all 11/22/2021 [facility] [place] of Occupat ional Health - Occupational Stress [...] place to sleep or slept in a fdc (including now)? No 11/22/2021 Nutrition Answer Date [...] Master's degree (e.g., MA, MS, Arti, MEd, NUCLEAR PHYSICS TEACHER, [employer]) 11/22/2021 Sex and Gender Information Value [...] 11/21/2021 7:47 AM CDT Plan of Treatment Not on file
--- OUTSIDE RECORDS SUMMARY | 2023-03-06 16:52 | XMS_ITS | Clinical Summary ---
Author Name Unknown Organization [facility] Address [place], [place] [address] Care Team Providers Care Re Dye Hand Name Role Phone Gayathri Carroll Primary Care Provider Allergies Active Allergy Reactions Criticality Noted Date Comments Sulfa (Sulfonamide Antibiotics) Nausea And Vomiting 01/30/2021 Medications Medication Sig Dispensed Refills Start Date End Date Status clobetasol 0.05% (TEMOVATE 0.05% OINTMENT) 0.05 % ointment Apply topically to affected area(s) 2 times daily. 0 01/30/2021 Active ProAir HFA 90 mcg/actuation inhaler 0 12/13/2020 Active mometasone-formot alejandra (Dulera) 200-5 mcg/actuation inhalerIndication s:Sarcoidosis Inhale 2 Puffs by mouth two times daily. 13 g 11 12/25/2021 Active nortriptyline (PAMELOR) 10 mg capsuleIndication s:Anxiety Take 2 Capsules (20 mg) by mouth at bedtime. 180 Capsule 3 05/28/2022 Active QUEtiapine (Seroquel XR) 50 mg Tb24 Extended-Release tabletIndications :Anxiety Take 1 Tablet (50 mg) by mouth once daily. 90 Tablet 3 05/28/2022 Active omeprazole 20 mg tabletIndications :Gastric reflux Take 1 Tablet (20 mg) by mouth once daily before a meal. 90 Tablet 3 05/28/2022 Active metroNIDAZOLE 0.75 % creamIndications: Rosacea Apply topically to affected area on face once-twice daily. 45 g 2 06/05/2022 Active tiZANidine (ZANAFLEX) 4 mg tabletIndications :Back pain with right-sided sciatica Take 1 Tablet (4 mg) by mouth every 6 hours if needed for Muscle Spasm. 10 Tablet 0 06/07/2022 Active cyclobenzaprine (FLEXERIL) 10 mg tabletIndications :Back pain with right-sided sciatica,Low back pain, unspecified back pain laterality, unspecified chronicity, unspecified whether sciatica present Take 1 Tablet (10 mg) by mouth 2 times daily if needed for Muscle Spasm. 30 Tablet 0 06/15/2022 Active celecoxib (CELEBREX) 200 mg capsuleIndication s:Back pain with right-sided sciatica,Low back pain, unspecified back pain laterality, unspecified chronicity, unspecified whether sciatica present Take 1 Capsule (200 mg) by mouth once daily with a meal. 30 Capsule 0 06/19/2022 Active QUEtiapine (SEROQUEL) 25 mg tabletIndications :Anxiety Take 1 Tablet (25 mg) by mouth at bedtime. 90 Tablet 3 08/10/2022 Active predniSONE (DELTASONE) 20 mg tablet 0 02/03/2023 Active mycophenolate (CellCept) 500 mg tabletIndications :Cardiac sarcoidosis Take 2 Tablets (1,000 mg) by mouth every 12 hours. Take with 500 mg to equal 1500 mg 360 Tablet 3 03/06/2023 Active mycophenolate (CellCept) 250 mg capsuleIndication s:Cardiac sarcoidosis Take 2 Capsules (500 mg) by mouth every 12 hours. Take with 1000 mg to equal 1500 mg 360 Capsule 3 03/06/2023 Active mycophenolate (CellCept) 250 mg capsuleIndication s:Cardiac sarcoidosis Take 1 Capsule (250 mg) by mouth two times daily. Take with 1000 mg to equal 1250 mg 180 Capsule 3 12/07/2022 4 Discontinue d(Reorder (E-cancel not sent)) mycophenolate (CellCept) 500 mg tabletIndications :Cardiac sarcoidosis Take 2 Tablets (1,000 mg) by mouth two times daily. Take with 250 mg tablet to equal 1250 mg 360 Tablet 3 12/07/2022 4 Discontinue d(Reorder (E-cancel not sent)) Active Problems Problem Noted Date Diagnosed Date Supraventricular tachycardia 05/28/2022 Sarcoidosis 11/21/2021 Lung interstitial disease 11/21/2021 Pap smear for cervical cancer screening 04/26/19 22 Overview: 04/2021 NIL/HPV negative. Plan: Pap/HPV due 04/2026 Ventricular trigeminy Mitral valve regurgitation Depression Anxiety Encounters Date Type Department Care Team Description 03/06/[address] [facility] [place] [address] [place] [address] Beltran Amado MD Results 03/05/2023 11:46 AM PAINTER AND DECORATOR APPRENTICE - 03/05/2023 11:59 PM PAINTER AND DECORATOR APPRENTICE Hospital Encounter [facility] [address] [place] [address] Beltran Amado MD Kempfert Samantha Cardiac sarcoidosis 03/05/2023 7:54 AM PAINTER AND DECORATOR APPRENTICE - 03/05/2023 11:45 AM PAINTER AND DECORATOR APPRENTICE Hospital Encounter [facility] [address] [place] [address] Beltran Amado MD Cardiac sarcoidosis 03/05/[address] [facility] [place] [address] [place] [address] Beltran Amado MD Prior Authorization 03/05/2023 Travel 02/14/2023 Orders Only [facility] [place] [address] [place] [address] Beltran Amado MD <No scans attached> 02/13/2023 2:00 PM PAINTER AND DECORATOR APPRENTICE Office Visit [facility] [address] [place] [address] Gayathri Carroll PA Hospital F/U (Post hospital - RSV, still having productive cough) 02/13/2023 8:30 AM PAINTER AND DECORATOR APPRENTICE Telemedicine [facility] [place] [address] [address] Eliu Casey MD Palpitations 02/13/2023 Travel 02/01/2023 Orders Only [facility] Scanner 1 scan: (1-Ord) BOWDOIN, CHEST 1 VIEW PORTABLE, 02/01/2023 01/21/2023 Nurse Triage [facility] [address] [place] [address] Gayathri Carroll PA Sinus Problem 01/10/2023 12:59 PM PAINTER AND DECORATOR APPRENTICE - 01/10/2023 11:59 PM PAINTER AND DECORATOR APPRENTICE Hospital Encounter [address] [address] Derrick Bower MD Froemming, Gina L TAKER OFF DRYING KILN 12/28/2022 8:29 AM CDT - 12/28/2022 11:59 PM CDT Hospital Encounter [address] [address] Derrick Bower MD Froemming, Gina L, TAKER OFF [employer]YING KILN 12/25/2022 2:15 PM CDT Nurse/Clinic Staff Only [facility] [address] [place] [address] Immunization/Inject ion 12/25/2022 Travel 12/18/2022 8:29 AM CDT - 12/18/2022 11:59 PM CDT Hospital Encounter [address] [address] Derrick Bower MD Froemming, Gina L, TAKER OFF [employer]YING KILN 12/10/2022 3:30 PM CDT Office Visit [address] [place] [address] Javier Michael MD CV General Cardiology Est (Cardiac sarcoidosis) 12/10/2022 Travel 12/07/2022 Orders Only [facility] [address] [place] [address] Beltran Amado MD <No scans attached> 12/06/2022 Telephone [facility] [address] [place] [address] Beltran Amado MD Results 12/05/2022 10:24 AM CDT - 12/05/2022 11:59 PM CDT Hospital Encounter [facility] [address] [place] [address] Beltran Amado MD Cardiac sarcoidosis 12/05/2022 Travel 12/04/2022 8:27 AM CDT - 12/04/2022 11:59 PM CDT Hospital Encounter [facility] [address] [place] [address] Derrick Bower MD Froemming, Gina L, TAKER [employer]YING KILN from Last 3 Months Immunizations Name Administration Dates Next Due COVID-19 Vaccine Spikevax (M oderna 50mcg/0.5mL) 12YO+ [id number] Formula PF 12/25/2022 Influenza, IIV4 12/25/2022,12/31/2021,04/21/2020 Tdap 08/15/2022,09/02/2013 Family History Medical History Relation Name Comments Aortic aneurysm Father Arrhythmia Father had an ablation Coronary artery disease Father Hypertension Father Kidney disease Father was born w/on ly 1 kidney Ulcerative colitis Father Atrial fibrillation Mother Cancer-ovarian Mother Hyperlipidemia Mother Hypothyroidism Mother Cancer-colon Other paternal 1st co usin Cancer-breast Paternal Grandmother Ulcerative colitis Paternal Uncle Relation Name Status Comments Father Mother Other Paternal Grandmother Paternal Uncle Social History Tobacco Use Types Packs/Day Years Used Date Smoking Tobacco: Former Cigarettes 0.5 10 0 02/1996 - 02/2006 Smokeless Tobacco: Never Tobacco Cessation:Counseling Given: Yes Alcohol Use Standard Drinks/Week Comments Yes 1 (1 standard drink = 0.6 oz pur e alcohol) 1-2 drinks a week Social Connections Answer Date Recorded Frequency of Communication with Friends and Fami ly 0 05/25/2022 Financial Resource Strain Answer Date R ecorded Difficulty of Paying Living Expenses 3 05/25/2022 Difficulty of Paying Living Expenses Not on file 05/25/2022 Food Insecurity Answer Date Recorded Worried About Running Out of Food in the Last Ye ar 1 05/25/2022 Transportation Needs Answer Date Record ed Lack of Transportation (Medical) 1 05/25/2022 Housing Stability Answer Date Recorded Unable to Pay for Housing in the Last Year 1 05/25/2022 Sex and Gender Information Value Date Recorded Sex Assigned at Not on file Gender Identity Not on file Sexual Orientation Not on file Obstetrics History Last Filed Vital Signs Vital Sign Reading Time Taken Comments Blood Pressure 131/74 02/13/2023 2:09 PM PAINTER AND DECORATOR APPRENTICE Pulse 80 02/13/2023 2:09 PM PAINTER AND DECORATOR APPRENTICE Temperature 36.7 ??C (98 ??F) 02/22/2022 5:58 AM PAINTER AND DECORATOR APPRENTICE Respiratory Rate 16 09/21/2022 10:57 AM CDT Oxygen Saturation 98% 02/13/2023 2:09 PM PAINTER AND DECORATOR APPRENTICE Inhaled Oxygen Concentration - - Weight 105.2 kg (232 lb) 02/13/2023 2:09 PM PAINTER AND DECORATOR APPRENTICE Height 172.7 cm (5' 8) 12/10/2022 3:19 PM CDT Body Mass Index 35.28 12/10/2022 3:19 PM CDT Plan of Treatment Upcoming Encounters Date Type Department Care Team (Late st Contact Info) Description 03/21/2023 12:45 PM PAINTER AND DECORATOR APPRENTICE Office Visit [address] [place] [place] [phone] Ana De La O MBBS [address] [place] [address] Dr [address]car[address] [place] [address] [place] [address] 04/16/2023 7:00 AM PAINTER AND DECORATOR APPRENTICE Appointment [address] [address] Tahmina Peters, TAKER OFF [employer]YING KILN [address] [place] [phone] 04/30/2023 7:00 AM PAINTER AND DECORATOR APPRENTICE Appointment [address] [address] Tahmina Peters TAKER OFF DRYING KILN [address] [place] [phone] 06/05/2023 8:30 AM CDT Office Visit [facility] [address] [address] Charisse Cabrera MD [address] [address] Health Maintenance Due Date Last Done Comments Pneumococcal series for age 6-64 (1 of 2 - PCV) 1969 Depression screening for age 12+ 1975 HIV for age 15-65 1978 Zoster (shingles) series for age 50+ (1 of 2) 1982 COVID-19 vaccine series ( season) 2023 12/25/2022, 12/31/2021, 09/28/2021, Additional history exists Mammogram for age 45-75 06/19/2023 06/19/19 23, 08/10/2020 (Completed outside of [facility]) BMI (ht and wt on same day) for age 18+ 12/11/2023 12/10/2022, 09/21/2022, 06/05/2022, Additional history exists Colonoscopy through age 75 10/26/202410/26 (Completed outside of [facility]) Pap test for age 21-65 05/22/2026 05/22/2021, 2021 Lipids for age 45-75 05/29/2027 05/28/2022, 05/23/19 22 Tetanus booster 08/15/2032 08/15/2022, 09/02/2013 Hepatitis C screening for ag e 18-79 Completed 05/22/2021 Tdap Completed 08/15/2022, 09/02/2013 Influenza for age 50-64 Completed 12/26/19 23, 12/31/2021, 04/21/2020 Procedures Procedure Name Priority Date/Time Associated Diagnosis Comments ECHO TTE COMPLETE W CONTRAST ITZEL 03/05/2023 12:42 PM PAINTER AND DECORATOR APPRENTICE Cardiac sarcoidosis PET CT CARDIAC METABOLIC W PERFUSION Routine 03/05/2023 11:05 AM PAINTER AND DECORATOR APPRENTICE Cardiac sarcoidosis GLUCOSE METER Routine 03/05/2023 8:28 AM PAINTER AND DECORATOR APPRENTICE SCAN-RADIOLOGY REPORT 02/01/2023 12:00 AM PAINTER AND DECORATOR APPRENTICE PET CT CARDIAC METABOLIC W PERFUSION Routine 12/05/2022 1:34 PM CDT Cardiac sarcoidosis GLUCOSE METER Routine 12/05/2022 10:35 AM CDT EXTENDED HOLTER Routine 12/05/2022 Cardiac sarcoidosis SVT (supraventricular tachycardia) from Last 3 Months Results * ECHO TTE COMPLETE W CONTRAST (03/05/2023 12:42 PM PAINTER AND DECORATOR APPRENTICE) AORTIC VALVE MEAN PG 5 mmHg LVEDD 4.9 cm EJECTION FRACTION 60 - 65% Anatomical Region Laterality Modality Ultrasound 03/05/2023 12:0 1 PM PAINTER AND DECORATOR APPRENTICE Narrative 03/05/2023 1:26 PM PAINTER AND DECORATOR APPRENTICE ECHOCARDIOGRAM NANCI CORONEL ? Accession#: ?? [id number] : ?1965 57 years Study Date: ?? 03/05/2023 12:01:05 PM Gender: F ?BP: ? 144/76 mmHg Height: 172.00 cm ?BSA: ?2.17 m? ? ? Weight: 105.01 kg ?Tech: ? OLL ? Referring MD: BELTRAN AMADO Site: ? [facility] Reading Location: [facility] Patient Location: Outpatient. Procedure: 2D w/ Contrast, Spectral Doppler and Color Doppler. Indication for study: Cardiac Sarcoidosis Cardiac Rhythm: Normal sinus.Study quality: Technically limited. Final Impressions: 1. Technically limited exam. 2. Echo contrast was administered to enhance visualization of all left ventricular segments. 3. Normal LV size, borderline wall thickness, normal global systolic function with an estimated EF of 60 - 65%. 4. Right ventricular cavity size is normal, global systolic RV function is normal. 5. Moderately enlarged left atrium. 6. The mitral valve is sclerotic, trace mitral regurgitation. 7. The ascending aorta is dilated with a maximal diameter of 4.3 cm. 8. The aortic sinus is dilated with a maximal diameter of 4.1 cm. Chamber Sizes and Function Normal left ventricular size, borderline wall thickness, normal global systolic function with an estimated EF of 60 - 65%. Left atrial size is moderately enlarged. Right ventricular cavity size is normal, global systolic RV function is normal. The right atrium is normal. The pulmonary artery is not well visualized. The sinus of Valsalva is dilated. The ascending aorta is dilated. Valves, RV Pressures and Diastolic Function The aortic valve is trileaflet, no stenosis and no regurgitation. The mitral valve is sclerotic, trace mitral regurgitation. Spectral Doppler shows Grade 1 pattern of LV diastolic filling. The tricuspid valve is normal in structure. Tricuspid regurgitation is trace regurgitation. The pulmonic valve is not well visualized. Unable to determine pulmonary regurgitation. Masses, Effusion, Shunts There is no pericardial effusion. The inferior vena cava is normal sized, respiratory size variation greater than 50%. Interatrial septum is not well visualized. MEASUREMENTS AND CALCULATIONS 2-D Measurements and LV Function: LVID (d) 4.9 cm LVOT diameter 2.4 cm IVS (d) ??1.0 cm HR ?88 bpm Ao Sinus 4.1 cm LA Vol index ??43 ml/m2 Asc Ao ?? 4.3 cm Diastology: Mitral ?Tissue Doppler E Peak 0.7 m/s ??e', Septum ? 0.07 m/s A Peak 1.1 m/s ??e', Lateral ?0.06 m/s E/A ?0.6 ?E/e' Average ?? 11.01 DT ? 253 msec Aortic Valve: Vmax ? 1.6 m/s ??KAVITHA (V) ?? 3.08 cm? ? ? VTI ?0.26 m ?? KAVITHA (I) ?? 3.25 cm? ? ? LVOT V max 1.1 m/s ??Max PG ?10 mmHg LVOT VTI ?? 0.19 m ?? Mean PG ?? 5 mmHg SV ? 84 ml ?Dim Index 0.72 SV index ?? 39 ml/m? ? ? CO ?7.4 l/min ?CI ?3.4 l/min/m? ? ? Mitral Valve: MVA ? 3.0 cm? ? ? MV P 1/2 ??73 msec MV Mean G 2 mmHg MV VTI ?0.18 m Tricuspid Valve and estimated PA pressures: TAPSE 1.1 cm Pulmonic Valve: PV Vmax 1.5 m/s Contrast documentation: 2 ml diluted Definity, lot #[id number], [facility]# [id number] was administered peripherally to enhance visualization of all left ventricular segments. . This study was interpreted by an [facility] accredited facility. ??Final ?? Procedure Note Jc Stallworth MD - 03/05/2023 ECHOCARDIOGRAM NANCI CORONEL : 1965 57 years Study Date: 03/05/2023 12:01:05 PM Gender: F BP: 144/76 mmHg Height: 172.00 cm BSA: 2.17 m? ? ? Weight: 105.01 kg Tech: CHRISTIN Referring MD: BELTRAN AMADO Site: [facility] Reading Location: [facility] Patient Location: Outpatient. Procedure: 2D w/ Contrast, Spectral Doppler and Color Doppler. Indication for study: Cardiac Sarcoidosis Cardiac Rhythm: Normal sinus.Study quality: Technically limited. Final Impressions: 1. Technically limited exam. 2. Echo contrast was administered to enhance visualization of all leftventricular segments. 3. Normal LV size, borderline wall thickness, normal global systolicfunction with an estimated EF of 60 - 65%. 4. Right ventricular cavity size is normal, global systolic RV functionis normal. 5. Moderately enlarged left atrium. 6. The mitral valve is sclerotic, trace mitral regurgitation. 7. The ascending aorta is dilated with a maximal diameter of 4.3 cm. 8. The aortic sinus is dilated with a maximal diameter of 4.1 cm. Chamber Sizes and Function Normal left ventricular size, borderline wall thickness, normal globalsystolic function with an estimated EF of 60 - 65%. Left atrial size ismoderately enlarged. Right ventricular cavity size is normal, globalsystolic RV function is normal. The right atrium is normal. The pulmonaryartery is not well visualized. The sinus of Valsalva is dilated. Theascending aorta is dilated. Valves, RV Pressures and Diastolic Function The aortic valve is trileaflet, no stenosis and no regurgitation. Themitral valve is sclerotic, trace mitral regurgitation. Spectral Dopplershows Grade 1 pattern of LV diastolic filling. The tricuspid valve isnormal in structure. Tricuspid regurgitation is trace regurgitation. Thepulmonic valve is not well visualized. Unable to determine pulmonaryregurgitation. Masses, Effusion, Shunts There is no pericardial effusion. The inferior vena cava is normal sized,respiratory size variation greater than 50%. Interatrial septum is notwell visualized. MEASUREMENTS AND CALCULATIONS 2-D Measurements and LV Function: LVID (d) 4.9 cm LVOT diameter 2.4 cm IVS (d) 1.0 cm HR 88 bpm Ao Sinus 4.1 cm LA Vol index 43 ml/m2 Asc Ao 4.3 cm Diastology: Mitral Tissue Doppler E Peak 0.7 m/s e', Septum 0.07 m/s A Peak 1.1 m/s e', Lateral 0.06 m/s E/A 0.6 E/e' Average 11.01 DT 253 msec Aortic Valve: Vmax 1.6 m/s KAVITHA (V) 3.08 cm? ? ? VTI 0.26 m KAVITHA (I) 3.25 cm? ? ? LVOT V max 1.1 m/s Max PG 10 mmHg LVOT VTI 0.19 m Mean PG 5 mmHg SV 84 ml Dim Index 0.72 SV index 39 ml/m? ? ? CO 7.4 l/min CI 3.4 l/min/m? ? ? Mitral Valve: MVA 3.0 cm? ? ? MV P 1/2 73 msec MV Mean G 2 mmHg MV VTI 0.18 m Tricuspid Valve and estimated PA pressures: TAPSE 1.1 cm Pulmonic Valve: PV Vmax 1.5 m/s Contrast documentation: 2 ml diluted Definity, lot #[id number], [facility]#[id number] was administered peripherally to enhance visualization of allleft ventricular segments. . This study was interpreted by an [facility] accredited facility. Final Beltran Amado MD ECHO ORD * PET CT CARDIAC METABOLIC W PERFUSION (03/05/2023 11:05 AM PAINTER AND DECORATOR APPRENTICE) Only the most recent of2 resultswithin the time period is included. Anatomical Region Laterality Modality Positron Emissio n Tomography (PET) Impressions 03/05/2023 2:00 PM PAINTER AND DECORATOR APPRENTICE Resting myocardial perfusion with rubidium was abnormal. There was a small, mild perfusion abnormality in the apical inferior wall. With 18 FDG imaging there was contiguous uptake in the basal inferolateral and lateral jc that extends into the mid inferior, lateral, and anterior jc. SUV max: 5.9. There was extracardiac activity visualized, specifically bilateral mediastinal and pulmonary uptake. This uptake pattern is consistent with active cardiac sarcoidosis or other inflammatory process. Overall left ventricular systolic function was normal without wall motion abnormalities. ?? The resting LVEF was calculated to be 64%. Left ventricular cavity size was normal ??(EDV 137 ml). When compared to the report and images of a prior study from December 05, 2022, the current distribution of myocardial FDG uptake is similar and the myocardial SUV max is similar. RUBIDIUM/FDG PET MPI PROCEDURE: This patient was studied utilizing a resting Rb/FDG protocol. ??PET myocardial perfusion imaging was performed at rest, 3 minutes following the intravenous injection of 30.06 mCi of 82 Rubidium. With the patient in a low carbohydrate/fasting state, she was injected via IV with 9.48 mCi of 18 FDG. Delayed PET imaging was performed 115 minutes post FDG injection. After image acquisition was completed, data was reconstructed in short, horizontal long and vertical long axis views and tomographic slices were generated. Blood glucose level pre FDG injection was 87 mg/dL. FINDINGS: The overall quality of the study was excellent with no significant patient motion or artifacts. Resting rubidium PET perfusion images were normal. Resting PET perfusion images demonstrated a small perfusion abnormality of mild intensity in the apical inferior wall. No other resting perfusion defects were identified. PET images with FDG demonstrated uptake in the basal inferolateral wall . Additionally, there was uptake in the basal and mid lateral wall. And, there was uptake in the mid anterior and inferior jc. SUV max: 5.9. No other areas of significant FDG uptake were identified. No right ventricular abnormalities were identified. There was extracardiac activity visualized, specifically bilateral mediastinal and pulmonary uptake. This uptake pattern is consistent with active cardiac sarcoidosis or other inflammatory process. ?? Computer processed gated imaging revealed a normal left ventricular size with an EDV of 137 ml, ESV of 50 ml and calculated LVEF of 64%. ??(Lab normals: LVEF >50%, LV size <150 ml) There was normal myocardial thickening and wall motion. The cardiac PET portion of this study was interpreted by: Marlo Sosa MD ? Cardiology ? and was performed by an [facility] Nuclear/PET Accredited Facility (Releasing physician is signing physician.) Narrative 03/05/2023 2:00 PM PAINTER AND DECORATOR APPRENTICE Patient name: Nanci Coronel ? Study date: March 05, 2023 PET MYOCARDIAL PERFUSION / METABOLIC IMAGING REPORT RB REST GATED PERFUSION / FDG METABOLIC PET IMAGING USING CT FOR ATTENUATION CORRECTION CLINICAL HISTORY: ?? 57 y.o. female for follow-up post therapy for cardiac sarcoidosis. HEIGHT: 5 feet 8 inches ? WEIGHT: 232 pounds INDICATIONS: probable cardiac sarcoidosis per CMR and PET/CT. CARDIAC HISTORY: abnormal ECG. OTHER SYMPTOMATOLOGY INCLUDES: ??MVR. Patient did indicate compliance with a no carb diet for a minimum of 12 hours. Beltran Amado MD PET * GLUCOSE METER (03/05/2023 8:28 AM PAINTER AND DECORATOR APPRENTICE) Only the most recent of2 resultswithin the time period is included. GLUCOSE METER 87 65 - 100 mg/dL 03/05/2023 11:02 AM PAINTER AND DECORATOR APPRENTICE [facility] Blood BLOOD SPECIMEN / Unknown 03/05/2023 8:28 AM PAINTER AND DECORATOR APPRENTICE 03/05/2023 11:02 AM PAINTER AND DECORATOR APPRENTICE Beltran Amado MD [facility] [address] [place] [address], * SCAN-RADIOLOGY REPORT (02/01/2023 12:00 AM PAINTER AND DECORATOR APPRENTICE) Anatomical Region Laterality Modality Other Scanner OTHER * ZIO PATCH XT - weekly to monthly symptoms. (12/05/2022) Narrative Noni Diane - 12/05/2022 Patient enrolled with vendor this date for Extended Holter home enrollment, duration 7 days. Device will be mailed to patient by vendor. ??Report will be found in the Procedures tab approximately 7-10 days after end of monitor period. Monitor to be delivered 11/25/2022 Beltran Amado MD CARDIAC SERVICE S ORD from Last 3 Months Advance Directives Documents on File Type Date Recorded Patient Trommel Tender Expl anation Healthcare Directive 02/20/2022 022 Latest Code Status on File Code Status Date Activated Date Inactivated Comments Full Code 02/21/2022 11:30 AM 02/22/2022 12:12 PM Question Answer Comments Code Status Discussion: Reviewed Preferences Care Teams Re Dye Hand Relationship Specialty Start Date End Date Gayathri Carroll PA [address] [place] [address] PCP - General Physician Blueprint Reproducer 01/30/21
[2023-03-06] MEDS: KETOROLAC 30 MG/ML inj IVP (16:53)
[2023-03-06] MEDS: HYDROmorphone 0.5 mg/0.5 ml inj IVP (16:55)
[2023-03-06 17:12] LABS: Appearance Urine Clear (Clear); Bilirubin Urine 1+ (Negative); Blood Urine 2+ (Negative); Color Urine Yellow (Yellow); Glucose Urine Negative (Negative); Ketones Urine 2+ (Negative); Leukocyte Esterase Urine Negative (Negative); Nitrite Urine Negative (Negative); Protein Urine Negative (Negative); Specific Gravity Urine >= 1.030 (1.000-1.030); Urobilinogen Urine 0.2 (0.2-1.0); pH Urine 5.5 (5.0-8.5)
[2023-03-06 17:23] LABS: Amorphous Sediment Urine Few; Squamous Epithelial Cell Urine Few (None-Few)
[2023-03-06 17:52] VITALS: BP 119/57; PULSE 75; RESP 18; O2SAT 97
== END 2023-03-06 18:56 | disposition home or self-care (01) ==
PROVIDERS: Emergency Provider Emergency Medicine Emergency Medical Services; PCP Physician Assistant Medical
DX: N20.1 Calculus of ureter (principal)
CPT/HCPCS: 74176; 81001; 87086; 96374; 96375; 99284; J1170; J1885; J2405

== ENCOUNTER 2023-06-29 18:21 | Outpatient (CLI) | payer BC, SELFPAY ==
--- OUTSIDE RECORDS SUMMARY | 2023-07-04 05:21 | XMS_ITS | Referral Summary ---
Author Name Unknown Organization [facility] Address [address] [place] [address] Care Team Providers Care Antique Clock Repairer Name Role Phone Unavailable Primary Care Provider Unavailabl e Source Comments Patient records contain information from all sites at [facility]. For routine questions regarding patient records, call [phone] during business hours, M-F 8:00 AM - 5:00 PM Central Time. Record requests for emergency care only can be directed to [phone] at any time.[facility] Encounters Date Type Department Care Team Description 06/21/2023 Documentation Division of Rheumatology in [place], [place] [address] [place] [phone] Rajat Pizarro M.B.B.S. 06/12/2023 11:30 AM CDT Education Division of Rheumatology in [address] [phone] Olivia Arreguin M.D. Washnieski, Shane M, R.N. Sarcoidosis; Immunodeficiency Due To Drugs (HCC) 06/12/2023 12:01 PM CDT - 06/12/2023 12:55 PM CDT Hospital Encounter Department of Laboratory Medicine and Pathology, [facility] in [place], [place] [address] [place] [phone] Olivia Arreguin M.D. Sarcoidosis; Immunodeficiency Due To Drugs (HCC) Discharge Disposition: Home or Self Care 06/12/2023 12:56 PM CDT - 06/12/2023 11:59 PM CDT Hospital Encounter Department of Radiology, [facility] in [place], [place] [address] [place] [phone] Olivia Arreguin M.D. Sarcoidosis; Corticosteroid Treatment Fpc Systemic; Immunodeficiency Due To Drugs (HCC) Discharge Disposition: Home or Self Care 06/12/2023 12:00 PM CDT Hospital Encounter Department of Laboratory Medicine and Pathology, [facility], in [place], [place] [address] [place] [phone] Olivia Arreguin M.D. Sarcoidosis; Immunodeficiency Due To Drugs (HCC) Discharge Disposition: Home or Self Care 06/12/2023 10:15 AM CDT Comprehensive Visit Division of Rheumatology in [place], [place] [address] [place] [phone] Rajat Pizarro M.B.BSandieSSandie Sarcoidosis (Primary Dx); Corticosteroid Treatment Fpc Systemic; Immunodeficiency Due To Drugs (HCC); Elevated Alkaline Phosphatase 06/11/2023 9:00 AM CDT Clinical Communication Virtual Review in [place], [place] 200 [place] [address] Pre-visit Intake (INDIRA done 06/10 EEF) 05/07/2023 Orders Only Division of Gastroenterology in [address] [phone] Emeterio Friedman M.D. Genetic Susceptibility To Disease 05/02/2023 Orders Only Department of Cardiovascular Medicine in [address] [phone] Neisha Nolan APRN, C.N.PSandie, M.S.NSandie Obstructive Sleep Apnea Adult (Primary Dx) 04/08/2023 Orders Only Department of Cardiovascular Medicine in [address] [phone] Neisha Nolan APRN, C.N.P., M.S.N. Apnea Sleep Obstructive (Primary Dx); Sarcoid Myocarditis (HCC) from Last 3 Months Allergies Active Allergy [...] Problem Noted Date Diagnosed Date Corticosteroid Treatment Fpc Systemic 05/26 Immunodeficiency Due To Drugs 06/12/2023 Sarcoidosis 11/21/2021 Lung Interstitial Disease 11/21/2021 Social History Tobacco Use Types Packs/Day Years Used Date Smoking Tobacco: Former Cigarettes 0.5 10 0 02/25/1994 - 02/26/2004 Passive Smoke Exposure: Past Smokeless Tobacco: Never Tobacco Cessation:Counseling Given: Not Answered Alcohol Use Standard Drinks/Week Comments Yes 2 (1 standard drink = 0.6 oz pur e alcohol) [facility] Camp[facility] Answer Date Recorded In the past [address] [facility] [employer], gas, oil, or water Markerly threatened to shut off services in your [...] How often do you attend chur or christian services? More than 4 times per year 11/22/2021 Do you belong to any clubs o r organizations such as jew groups, unions, fraternal or athletic groups, or [...] and heating? Not hard at all 11/22/2021 [facility] [place] [facility] Occupat ional Health - Occupational Stress [...] living situation today? I have a [facility] place to live 03/30/2023 Education Answer Date Recorded What is the highest level of school you have completed or the highest degree you have received? Master's degree (e.g., MA, MS, Arti, MEd, HORTICULTURE/FLORICULTURE TEACHER, GALA) 11/22/2021 Sex and Gender Information Value Date Recorded Sex Assigned at Female 11/22/2021 11:24 PM CDT Gender Identity Female 11/22/2021 11:24 PM CDT Sexual Orientation Lesbian or Alonso 11/22/2021 11 :24 PM CDT Last Filed Vital Signs Vital Sign Reading Time Taken Comments Blood Pressure 153/85 04/04/2023 1:48 PM PUNCHING MACHINE OPERATOR Pulse 82 04/04/2023 1:48 PM PUNCHING MACHINE OPERATOR Temperature 35.1 ??C (95.2 ??F) 11/21/2021 7:47 AM CD T Respiratory Rate - - Oxygen Saturation 97% 11/21/2021 7:47 AM CDT Inhaled Oxygen Concentration - - Weight 106 kg (232 lb 14.7 oz) 04/04/2023 1:46 P M PUNCHING MACHINE OPERATOR Height 171 cm (5' 7.32) 04/04/2023 1:46 PM PUNCHING MACHINE OPERATOR Body Mass Index 36.13 04/04/2023 1:46 PM PUNCHING MACHINE OPERATOR Plan of Treatment Not on file Procedures Procedure Name Priority Date/Time Associated Diagnosis Comments BMD BONE DENSITY SPINE HIPS RAD - Routine (most inpatients and all outpatients) 06/12/2023 1:34 PM CDT Sarcoidosis Corticosteroid Treatment Model And Mold Maker Plaster Systemic Immunodeficiency Due To Drugs (HCC) DIPSTICK, [...] CDT Sarcoidosis Immunodeficiency Due To Drugs (HCC) 1,25-DIHYDROXYVITAMI N D, S Routine 06/12/2023 12:27 PM CDT [...] CDT Sarcoidosis Immunodeficiency Due To Drugs (HCC) GAMMA-GLUTAMYLTRANSF ERASE (GGT), S/P Routine 06/12/2023 12:22 PM CDT Elevated Alkaline Phosphatase LIPID PANEL, S Routine 04/04/2023 8:00 AM PUNCHING MACHINE OPERATOR Failure Heart (HCC) BI BREAST SCREENING BILATERAL [...] Bone Mineral Density (BMD) analysis performed on KIT digitalXA with serial number [id number]. ? FINDINGS: Left Hip: Femur Neck: BMD [...] Bone Mineral Density (BMD) analysis performed on KIT digitalXA with serialnumber [id number]. FINDINGS: Left Hip: Femur Neck: BMD = [...] report, including images and graphs,is available in EADS. In the absence of other causes of [...] appropriate imagestored in the BMD study in EADS), the calculated ten year probability offracture is: [...] Olivia Arreguin M.D. LAB URINE ALEXANDER OLSEN [facility] [address] [place] [address], [facility] DTL [facility] [address] [place] [address] * Microscopic Automated (06/12/2023 12:31 PM CDT) [...] LAB URINE ALEXANDER OLSEN Performing Organization Address City/[facility]/[place] [address] * pH, Urine (06/12/2023 12:31 PM CDT) pH, U 5.8 4.5 - 8.0 06/12/2023 1:4 8 PM CDT DTL Urine 06/12/2023 12:3 1 PM CDT 06/12/2023 12:53 PM CDT Olivia Arreguin M.D. LAB URINE ALEXANDER OLSEN Performing Organization Address City/[facility] Co de Phone Number [address] [place] [address] * Protein/Creatinine Ratio, Random, Urine (06/12/2023 12:31 PM CDT) Protein, Total, Random, U 17 mg/dL 06/12/2023 1:43 PM CDT DTL Creatinine, Random, U 259 16 - 326 mg/dL 06/12/2023 1:43 PM CDT DTL Protein/Creatin ine Ratio 0.07 <0.18 mg/mg 06/12/2023 1:43 PM CDT DTL Urine (Urine, Midstream) 06/12/2023 12:31 PM CDT 06/12/2023 12:53 PM CDT Olivia Arreguin M.D. LAB URINE ALEXANDER OLSEN [facility] 200 [place], [place] [id number] [place] [address] 200 [place] [address] * Osmolality, Urine (06/12/2023 12:31 PM CDT) Osmolality, U 804 150 - 1150 mOsm/kg 06/12/2023 1:48 PM CDT DTL Urine 06/12/2023 12:3 1 PM CDT 06/12/2023 12:53 PM CDT Olivia Arreguin M.D. LAB URINE AYANAE RAÚL Performing Organization Address [facility] Co de Phone Number [facility] [address] [place] [address], [facility] 200 [place] [address] * Calcium/Creatinine Ratio, Random, Urine (06/12/2023 12:31 [...] LAB URINE AYANAE RAÚL Performing Organization Address City/[facility]/ZIP Co de Phone Number [facility] [address] [place] [address], [facility] 200 [place] [address] * Urinalysis, with Microscopic: Urine, Midstream (06/12/2023 [...] Olivia Arreguin M.D. LAB URINE ORDE RABLES [facility] 200 [place] [address], [facility] 200 [place] [address] * HBc Total Ab, Serum (06/12/2023 12:28 PM CDT) [facility] HBc Total Ab, S Negative Negative 06/12/2023 8:08 PM CDT [facility] Blood (Blood, Venous) 06/12/2023 12:28 PM CDT 06/12/2023 4:50 PM CDT Olivia Arreguin M.D. LAB MICROBIOLO GY - BLOOD ORDERABLES [facility] [address] [place], [place] [address] [place] [address] [place] [address] * HBs Antibody, Serum (06/12/2023 12:28 PM CDT) [facility] HBs Antibody, S Negative 06/12/2023 8:08 PM CDT [facility] Comment: Patient is presumed to be not immune to infection with HBV. ----REFERENCE VALUE---- Unvaccinated: Negative Vaccinated: Positive HBs Antibody, Quantitative, S <5.0 mIU/mL 06/12/2023 8:08 PM CDT [facility] Comment: ----REFERENCE VALUE---- Unvaccinated: <5.0 Vaccinated: >=12.0 Blood (Blood, Venous) 06/12/2023 12:28 PM CDT 06/12/2023 4:50 PM CDT Olivia Arreguin M.D. LAB MICROBIOLO GY - BLOOD ORDERABLES [facility] [address] [place] [address] [facility] [address] [place] [address] * (ABNORMAL) CRP (C-Reactive Protein) (06/12/2023 12:28 PM CDT) [facility] C-Reactive Protein (CRP), S 5.2(H) <5.0 mg/L 06/12/2023 1:27 PM CDT DTL Blood (Blood, Venous) 06/12/2023 12:28 PM CDT 06/12/2023 1:04 PM CDT Olivia Arreguin M.D. LAB BLOOD ADD- ON [facility] [address] [place] [address], [facility] [address] [place] [address] * (ABNORMAL) Comprehensive Metabolic Panel (06/12/2023 12:28 PM CDT) [facility] Potassium, S 4.2 3.6 - 5.2 [...] LAB BLOOD ADD- ON Performing Organization Address City/[facility]/ZIP Co de Phone Number [facility] [address] [place] [address], [place] [facility] [address] [place] [address] * HCV Ab w/Reflex to HCV PCR, Serum (06/12/2023 12:27 PM CDT) Pathologist [facility] HCV Ab, S Negative Negative 06/14/2023 10:56 AM CDT [facility] Comment: Consumption of high-dose biotin supplement within 12 hours of blood collection for this test can cause false-negative results. Blood (Blood, Venous) 06/12/2023 12:27 PM CDT 06/12/2023 4:50 PM CDT Olivia Arreguin M.D. LAB MICROBIOLO GY - BLOOD ORDERABLES Performing Organization Address [facility] Co de Phone Number [facility] [address] [place] [address] [facility] [address] [place] [address] * 1,25-Dihydroxyvitamin D (06/12/2023 12:27 PM CDT) [facility] 1, 25 DIHYDROXYVITAMIN D, S 41 18 - 78 pg/mL 06/14/2023 2:01 PM CDT [facility] Comment: ----ADDITIONAL INFORMATION---- This test was developed and its performance characteristics determined by [facility] in a manner consistent with CLIA requirements. This test has not been cleared or approved by the U.S. Food and Drug Administration. Blood (Blood, Venous) 06/12/2023 12:27 PM CDT 06/13/2023 7:43 AM CDT Olivia Arreguin M.D. LAB BLOOD ADD- ON Performing Organization Address City/[facility]/ZIP Co de Phone Number [facility] [address] [place] [address] [facility] [address] [place] [address] [place] [address] * (ABNORMAL) 25-Hydroxyvitamin D2 and D3 (06/12/2023 12:27 PM CDT) 25-Hydroxy D2 <4.0 ng/mL 06/17/2023 1:31 PM CDT SDS 25-Hydroxy D3 16 ng/mL 06/17/2023 1:31 PM CDT SDS 25-Hydroxy D Total 16(L) ng/mL 2023 1:31 PM CDT SDS Comment: Interpretation: 10-19 ng/mL (mild to moderate deficiency) ----REFERENCE VALUE---- 25-HYDROXY D TOTAL (D2+D3) Optimum levels in the healthy population are 20-50, patients with bone disease may benefit from higher levels within this range. ----ADDITIONAL INFORMATION---- This test was developed and its performance characteristics determined by [facility] in a manner consistent with CLIA requirements. This test has not been cleared or approved by the U.S. Food and Drug Administration. Blood (Blood, Venous) 06/12/2023 12:27 PM CDT 06/13/2023 7:17 AM CDT Olivia Arreguin M.D. LAB BLOOD ADD- ON [facility] [address] [place] [address] [facility] [address] [place] [address] [place] [address] * Hepatitis B Surface Antigen (06/12/2023 12:27 PM CDT) HBs Antigen, S Negative Negative 06/14/2023 10:56 AM CDT [facility] Blood (Blood, Venous) 06/12/2023 12:27 PM CDT 06/12/2023 4:50 PM CDT Olivia Arreguin M.D. LAB MICROBIOLO GY - BLOOD ORDERABLES [facility] [address] [place] [address] [facility] [address] [place] [address] * Sedimentation Rate (06/12/2023 12:27 PM CDT) Pathologist [facility] Sedimentation Rate, B 16 2 - 22 mm/h 06/12/2023 1:57 PM CDT DTL Blood (Blood, Venous) 06/12/2023 12:27 PM CDT 06/12/2023 12:51 PM CDT Olivia Arreguin M.D. LAB BLOOD ADD- ON [facility] [address] [place] [address], [facility] [address] [place] [address] * (ABNORMAL) CBC with Differential, Blood (06/12/2023 12:27 PM CDT) [facility] Hemoglobin 13.4 11.6 - 15.0 g/dL [...] Olivia Arreguin M.D. LAB BLOOD ADD- ON [facility] [address] [facility] [address] 200 [place] [address] * GGT (Gamma-Glutamyltransferase) (06/12/2023 12:22 PM CDT) Pathologist [facility] Gamma Glutamyltransferase (GGT), S 10 5 - 36 U/L 06/12/2023 6:19 PM CDT DTL Blood (Blood, Venous) 06/12/2023 12:22 PM CDT 06/12/2023 5:18 PM CDT Olivia Arreguin M.D. LAB BLOOD ADD- ON [facility] 200 [place], [place] [id number] [place] [address] [facility] 200 [place] [address] * (ABNORMAL) Lipid Panel (04/04/2023 8:00 AM PUNCHING MACHINE OPERATOR) Pathologist [facility] Triglycerides 144 mg/dL 04/04/2023 9:16 AM PUNCHING MACHINE OPERATOR DTL Comment: ----REFERENCE VALUE---- Normal: <150 mg/dL Borderline High: 150-199 mg/dL High: 200-499 mg/dL Very High: > or =500 mg/dL Cholesterol, Total 180 mg/dL 2023 9:16 AM PUNCHING MACHINE OPERATOR DTL Comment: ----REFERENCE VALUE---- Desirable: < 200 mg/dL Borderline High: 200 - 239 mg/dL High: > or = 240 mg/dL Cholesterol, LDL, Calculated 107 mg/dL 04/04/2023 9:16 AM PUNCHING MACHINE OPERATOR DTL Comment: ----REFERENCE VALUE---- Desirable: <100 mg/dL Above Desirable: 100-129 mg/dL Borderline High: 130-159 mg/dL High: 160-189 mg/dL Very High: >=190 mg/dL ----ADDITIONAL INFORMATION---- LDL cholesterol calculated using the Gardner/NIH equation. Cholesterol, HDL, S 48(L) >=50 mg/dL 04/04/2023 9:16 AM PUNCHING MACHINE OPERATOR DTL Cholesterol, Non-HDL, Calculated 132 mg/dL 04/04/2023 9:16 AM PUNCHING MACHINE OPERATOR DTL Comment: ----REFERENCE VALUE---- Desirable: <130 mg/dL Above Desirable: 130-159 mg/dL Borderline High: 160-189 mg/dL High: 190-219 mg/dL Very High: > or =220 mg/dL Fasting (8 HR or more) No 04/04/2023 8:41 AM PUNCHING MACHINE OPERATOR DTL Blood (Blood, Venous) 04/04/2023 8:00 AM PUNCHING MACHINE OPERATOR 04/04/2023 8:41 AM PUNCHING MACHINE OPERATOR Neisha Nolan APRN, C.N.P., M.S.N. LAB B WILFRED ADD-ON [facility] [address] [place] [address], [facility] [address] [place] [address] from Last 3 Months or Most Recently Relevant to Health Maintenance
--- OUTSIDE RECORDS SUMMARY | 2023-07-04 05:21 | XMS_ITS ---
Author Name Unknown Organization [facility] Address [address] [place] [address] Care Team Providers Care Crystalizer Operator Name Role Phone Unavailable Unavailable Unavailable Surgery Details Not on file Complications Check Surgery Details section. Procedure Estimated Blood Loss Check Surgery Details section. Procedure Findings Check Surgery Details section. Procedure Specimens Taken Check Surgery Details section.
--- OUTSIDE RECORDS SUMMARY | 2023-07-04 05:21 | XMS_ITS | Clinical Summary ---
Author Name Unknown Organization [facility] Address [address] [place] [address] Care Team Providers Care Sleeve Fixer Name Role Phone Unavailable Primary Care Provider Unavailabl e Source Comments Patient records contain information from all sites at [facility]. For routine questions regarding patient records, call [phone] during business hours, M-F 8:00 AM - 5:00 PM Central Time. 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 Sarcoidosis; Corticosteroid Treatment Senior Care Systemic; Immunodeficiency Due To Drugs (HCC) Discharge Disposition: Home or Self Care 06/12/2023 12:01 PM CDT - 06/12/2023 12:55 PM CDT Hospital Encounter Department of Laboratory Medicine and Pathology, [address] [phone] Olivia Arreguin M.D. Sarcoidosis; Immunodeficiency Due To Drugs (HCC) Discharge Disposition: Home or Self Care 06/12/2023 12:00 PM CDT Hospital Encounter Department of Laboratory Medicine and Pathology, [address] [phone] Olivia Arreguin M.D. Sarcoidosis; Immunodeficiency Due To Drugs (HCC) Discharge Disposition: Home or Self Care 06/12/2023 11:30 AM CDT Education Division of Rheumatology in [place], [place] [address] [place] [phone] Olivia Arreguin M.D. Washnieski, Shane M, RSandieNSandie Sarcoidosis; Immunodeficiency Due To Drugs (HCC) 06/12/2023 10:15 AM CDT Comprehensive Visit Division of Rheumatology in [place], [place] [address] [place] [phone] Rajat Pizarro M.B.BSandeiS. Sarcoidosis (Primary Dx); Corticosteroid Treatment Senior Care Systemic; Immunodeficiency Due To Drugs (HCC); Elevated Alkaline Phosphatase 06/11/2023 9:00 AM CDT Clinical Communication Virtual Review in [place], [place] 200 [place] [address] Pre-visit Intake (IDNIRA done 06/10 EEF) 05/07/2023 Orders Only Division of Gastroenterology in [place], [place] [address] [place] [phone] Emeterio Friedman M.D. Genetic Susceptibility To Disease 05/02/2023 Orders Only Department of Cardiovascular Medicine in [place], [place] [address] [place] [phone] Neisha Nolan APRN C.N.PSandie, M.S.N. Obstructive Sleep Apnea Adult (Primary Dx) 04/08/2023 Orders Only Department of Cardiovascular Medicine in [place], [place] [address] [place] [phone] Neisha Nolan APRN C.N.P., M.S.N. 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 More than 4 times per year [...] and heating? Not hard at all 11/22/2021 [facility] - Occupational Stress Questionnaire Answer Date Recorded [...] your living situation today? I have a [facility] place to live 03/30/2023 Education Answer Date Recorded What is the highest level of school you have completed or the highest degree you have received? Master's degree (e.g., DUSTY, MS, Arti, MEd, WAX ENGRAVER, GALA) 11/22/2021 Sex and Gender Information Value Date Recorded Sex Assigned at Female 11/22/2021 11:24 PM CDT Gender Identity Female 11/22/2021 11:24 PM CDT Sexual Orientation Lesbian or Alonso 11/22/2021 11 :24 PM CDT Last Filed Vital Signs Vital Sign Reading Time Taken Comments Blood Pressure 153/85 04/04/2023 1:48 PM MRI TECHNICIAN Pulse 82 04/04/2023 1:48 PM MRI TECHNICIAN Temperature 35.1 ??C (95.2 ??F) 11/21/2021 7:47 AM CD T Respiratory Rate - - Oxygen Saturation 97% 11/21/2021 7:47 AM CDT Inhaled Oxygen Concentration - - Weight 106 kg (232 lb 14.7 oz) 04/04/2023 1:46 P M MRI TECHNICIAN Height 171 cm (5' 7.32) 04/04/2023 1:46 PM MRI TECHNICIAN Body Mass Index 36.13 04/04/2023 1:46 PM MRI TECHNICIAN Plan of Treatment Health Maintenance Due Date [...] 06/12/2023 1:34 PM CDT Sarcoidosis Corticosteroid Treatment Evidence Specialist Systemic Immunodeficiency Due To Drugs (HCC) DIPSTICK, [...] LIPID PANEL, S Routine 04/04/2023 8:00 AM MRI TECHNICIAN Failure Heart (HCC) BI BREAST SCREENING BILATERAL [...] Bone Mineral Density (BMD) analysis performed on Sayah with serial number [id number]. ? FINDINGS: Left Hip: Femur Neck: BMD [...] including images and graphs, is available in [employer]. In the absence of other causes of [...] Bone Mineral Density (BMD) analysis performed on [employer] with serialnumber [id number]. FINDINGS: Left Hip: Femur Neck: BMD = [...] Olivia Arreguin M.D. LAB [place] [address], [facility] [address] [place] [address] * Microscopic Automated (06/12/2023 12:31 PM CDT) [...] LAB URINE ALEXANDER OLSEN Performing Organization Address City/[facility]/ZIP Co de Phone Number [facility] 200 [place] [address] * pH, Urine (06/12/2023 12:31 PM CDT) pH, U 5.8 4.5 - 8.0 06/12/2023 1:4 8 PM CDT DTL Urine 06/12/2023 12:3 1 PM CDT 06/12/2023 12:53 PM CDT Olivia Arreguin M.D. LAB URINE AYANAE RAÚL Performing Organization Address [facility] Co de Phone Number [facility] [address] [place] [address], [place] [address] * Protein/Creatinine Ratio, Random, Urine (06/12/2023 12:31 PM CDT) Protein, Total, Random, U 17 mg/dL 06/12/2023 1:43 PM CDT DTL Creatinine, Random, U 259 16 - 326 mg/dL 06/12/2023 1:43 PM CDT DTL Protein/Creatin ine Ratio 0.07 <0.18 mg/mg 06/12/2023 1:43 PM CDT DTL Urine (Urine, Midstream) 06/12/2023 12:31 PM CDT 06/12/2023 12:53 PM CDT Olivia Arreguin M.D. LAB URINE AYANADon OLSEN [facility] [address] [place] [address], [facility] 200 [place] [address] * Osmolality, Urine (06/12/2023 12:31 PM CDT) Pathologist [facility] Osmolality, U 804 150 - 1150 mOsm/kg 06/12/2023 1:48 PM CDT DTL Urine 06/12/2023 12:3 1 PM CDT 06/12/2023 12:53 PM CDT Olivia Arreguin M.D. LAB URINE ORDE RAÚL Performing Organization Address City/[facility]/ZIP Co de Phone Number [facility] [address] [place] [address], [facility] 200 [place] [address] * Calcium/Creatinine Ratio, Random, Urine (06/12/2023 12:31 PM CDT) [facility] Calcium/Creat Ratio, Random, U 0.08 0.05 - 0.27 mg/mg 06/12/2023 1:43 PM CDT DTL Calcium, Random, U 22 mg/dL 06/12/2023 1:43 PM CDT DTL Creatinine, Random, U 259 16 - 326 mg/dL 06/12/2023 1:43 PM CDT DT Urine (Urine, Midstream) 06/12/2023 12:31 PM CDT 06/12/2023 12:53 PM CDT Olivia Arreguin M.D. LAB URINE ALEXANDER OLSEN Performing Organization Address City/[facility]/ZIP Co de Phone Number [facility] 200 [place] [address], [facility] 200 [place] [address] * Urinalysis, with Microscopic: Urine, Midstream (06/12/2023 [...] Olivia Arreguin M.D. LAB URINE ORDE RABLES [facility] [address] [place] [address], [place] [facility] [address] [place] [address] * HBc Total Ab, Serum (06/12/2023 12:28 PM CDT) [facility] HBc Total Ab, S Negative Negative 06/12/2023 8:08 PM CDT [facility] Blood (Blood, Venous) 06/12/2023 12:28 PM CDT 06/12/2023 4:50 PM CDT Olivia Arreguin M.D. LAB MICROBIOLO GY - BLOOD ORDERABLES [facility] [address] [place] [address] [facility] [address] [place] [address] * HBs Antibody, Serum (06/12/2023 12:28 PM CDT) [facility] HBs Antibody, S Negative 06/12/2023 8:08 PM CDT [facility] Comment: Patient is presumed to be not immune to infection with HBV. ----REFERENCE VALUE---- Unvaccinated: Negative Vaccinated: Positive HBs Antibody, Quantitative, S <5.0 mIU/mL 06/12/2023 8:08 PM CDT [facility] Comment: ----REFERENCE VALUE---- Unvaccinated: <5.0 Vaccinated: >=12.0 Blood (Blood, Venous) 06/12/2023 12:28 PM CDT 06/12/2023 4:50 PM CDT Olivia Arreguin M.D. LAB MICROBIOLO GY - BLOOD ORDERABLES [facility] [address] [place] [address] [facility] [address] [place] [address] * (ABNORMAL) CRP (C-Reactive Protein) (06/12/2023 12:28 PM CDT) Pathologist [facility] C-Reactive Protein (CRP), S 5.2(H) <5.0 mg/L 06/12/2023 1:27 PM CDT DTL Blood (Blood, Venous) 06/12/2023 12:28 PM CDT 06/12/2023 1:04 PM CDT Olivia Arreguin M.D. LAB BLOOD ADD- ON Performing Organization Address City/[facility]/ZIP Co de Phone Number [facility] [address] [place] [address], [facility] [address] [place] [address] * (ABNORMAL) Comprehensive Metabolic Panel (06/12/2023 12:28 PM CDT) Pathologist [facility] Potassium, S 4.2 3.6 - 5.2 mmol/L [...] Olivia Arreguin M.D. LAB BLOOD ADD- ON [facility] [address] [place] [address], [place] DTL [facility] [address] [place] [address] * HCV Ab w/Reflex to HCV PCR, Serum (06/12/2023 12:27 PM CDT) [facility] HCV Ab, S Negative Negative 06/14/2023 10:56 AM CDT [facility] Comment: Consumption of high-dose biotin supplement within 12 hours of blood collection for this test can cause false-negative results. Blood (Blood, Venous) 06/12/2023 12:27 PM CDT 06/12/2023 4:50 PM CDT Olivia Arreguin M.D. LAB MICROBIOLO GY - BLOOD ORDERABLES Performing Organization Address City/[facility]/ZIP Co de Phone Number [facility] [address] [place] [address] [facility] [address] [place] [address] * 1,25-Dihydroxyvitamin D (06/12/2023 12:27 PM CDT) [facility] 1, 25 DIHYDROXYVITAMIN D, S 41 18 - 78 pg/mL 06/14/2023 2:01 PM CDT [facility] Comment: ----ADDITIONAL INFORMATION---- This test was developed and its performance characteristics determined by [facility] in a manner consistent with CLIA requirements. This test has not been cleared or approved by the U.S. Food and Drug Administration. Blood (Blood, Venous) 06/12/2023 12:27 PM CDT 06/13/2023 7:43 AM CDT Olivia Arreguin M.D. LAB BLOOD ADD- ON Performing Organization Address City/[facility]/ZIP Co de Phone Number [facility] [address] [place] [address] [facility] [address] [place] [facility] [place] [address] * (ABNORMAL) 25-Hydroxyvitamin D2 and D3 (06/12/2023 12:27 PM CDT) [facility] 25-Hydroxy D2 <4.0 ng/mL 06/17/2023 1:31 PM CDT [facility] 25-Hydroxy D3 16 ng/mL 06/17/2023 1:31 PM CDT SDS 25-Hydroxy D Total 16(L) ng/mL 2023 1:31 PM CDT [facility] Comment: Interpretation: 10-19 ng/mL (mild to moderate deficiency) ----REFERENCE VALUE---- 25-HYDROXY D TOTAL (D2+D3) Optimum levels in the healthy population are 20-50, patients with bone disease may benefit from higher levels within this range. ----ADDITIONAL INFORMATION---- This test was developed and its performance characteristics determined by [facility] in a manner consistent with CLIA requirements. This test has not been cleared or approved by the U.S. Food and Drug Administration. Blood (Blood, Venous) 06/12/2023 12:27 PM CDT 06/13/2023 7:17 AM CDT Olivia Arreguin M.D. LAB BLOOD ADD- ON Performing Organization Address City/[facility]/ZIP Co de Phone Number [facility] [address] [place] [address] [facility] [address] [place] [address] [place] [address] * Hepatitis B Surface Antigen (06/12/2023 12:27 PM CDT) Pathologist [facility] HBs Antigen, S Negative Negative 06/14/2023 10:56 AM CDT [facility] Blood (Blood, Venous) 06/12/2023 12:27 PM CDT 06/12/2023 4:50 PM CDT Olivia Arreguin M.D. LAB MICROBIOLO GY - BLOOD ORDERABLES Performing Organization Address City/[facility]/ZIP Co de Phone Number [facility] [address] [place] [address] [facility] [address] [place] [address] * Sedimentation Rate (06/12/2023 12:27 PM CDT) [facility] Sedimentation Rate, B 16 2 - 22 mm/h 06/12/2023 1:57 PM CDT DTL Blood (Blood, Venous) 06/12/2023 12:27 PM CDT 06/12/2023 12:51 PM CDT Olivia Arreguin M.D. LAB BLOOD ADD- ON [facility] [address] [place] [address], [facility] DTL [facility] [address] [place] [address] * (ABNORMAL) CBC with Differential, Blood (06/12/2023 [...] LAB BLOOD ADD- ON Performing Organization Address City/[facility]/ZIP Co de Phone Number [facility] [address] [facility] 200 [place] [address] * GGT (Gamma-Glutamyltransferase) (06/12/2023 12:22 PM CDT) Gamma Glutamyltransferase (GGT), S 10 5 - 36 U/L 06/12/2023 6:19 PM CDT DTL Blood (Blood, Venous) 06/12/2023 12:22 PM CDT 06/12/2023 5:18 PM CDT Olivia Arreguin M.D. LAB BLOOD ADD- ON Performing Organization Address City/[facility] Co de Phone Number [facility] [address] [place], [place] [phone] [place] [address] 200 [place] [address] * (ABNORMAL) Lipid Panel (04/04/2023 8:00 AM MRI TECHNICIAN) Triglycerides 144 mg/dL 04/04/2023 9:16 AM MRI TECHNICIAN DTL Comment: ----REFERENCE VALUE---- Normal: <150 mg/dL Borderline High: 150-199 mg/dL High: 200-499 mg/dL Very High: > or =500 mg/dL Cholesterol, Total 180 mg/dL 2023 9:16 AM MRI TECHNICIAN DTL Comment: ----REFERENCE VALUE---- Desirable: < 200 mg/dL Borderline High: 200 - 239 mg/dL High: > or = 240 mg/dL Cholesterol, LDL, Calculated 107 mg/dL 04/04/2023 9:16 AM MRI TECHNICIAN DTL Comment: ----REFERENCE VALUE---- Desirable: <100 mg/dL Above Desirable: 100-129 mg/dL Borderline High: 130-159 mg/dL High: 160-189 mg/dL Very High: >=190 mg/dL ----ADDITIONAL INFORMATION---- LDL cholesterol calculated using the Gardner/NIH equation. Cholesterol, HDL, S 48(L) >=50 mg/dL 04/04/2023 9:16 AM MRI TECHNICIAN DTL Cholesterol, Non-HDL, Calculated 132 mg/dL 04/04/2023 9:16 AM MRI TECHNICIAN DTL Comment: ----REFERENCE VALUE---- Desirable: <130 mg/dL Above Desirable: 130-159 mg/dL Borderline High: 160-189 mg/dL High: 190-219 mg/dL Very High: > or =220 mg/dL Fasting (8 HR or more) No 04/04/2023 8:41 AM MRI TECHNICIAN DTL Blood (Blood, Venous) 04/04/2023 8:00 AM MRI TECHNICIAN 04/04/2023 8:41 AM MRI TECHNICIAN Neisha Nolan APRN, C.N.P., M.S.N. LAB B LOOD ADD-ON [facility] [address] [place] [address], [facility] [address] [place] [address] from Last 3 Months or Most Recently Relevant to Health Maintenance
--- OUTSIDE RECORDS SUMMARY | 2023-07-04 05:22 | XMS_ITS | Encounter Summary ---
Author Name Unknown Organization [facility] Address [address] [place] [address] Care Team Providers Care Insurance Account Representative Name Role Phone Unavailable Primary Care Provider Unavailabl e Encounter Details Date Type Department Care Team (Late st Contact Info) Description 06/21/2023 Documentation Division of Rheumatology in [place], [place] [address] [place] [phone] Rajat Pizarro M.B.B.S. [address] [place] [address] Social History Tobacco Use Types Packs/Day Years Used Date Smoking Tobacco: Former Cigarettes 0.5 10 0 02/25/1994 - 02/26/2004 Passive Smoke Exposure: Past Smokeless Tobacco: Never Alcohol Use Standard Drinks/Week Comments Yes 2 (1 standard drink = 0.6 oz pur e alcohol) [facility] Utilities Answer Date Recorded In the past [address] [facility] [employer], gas, oil, or water [employer] threatened to shut off services in your [...] week 11/22/2021 How often do you attend [facility] or rastafarian services? More than 4 times per year [...] and heating? Not hard at all 11/22/2021 [facility] - Occupational [...] your living situation today? I have a [facility] place to live 03/30/2023 Education Answer Date Recorded What is the highest level of school you have completed or the highest degree you have received? Master's degree (e.g., MA, MS, Arti, MEd, UROLOGIST PHYSICIAN, GALA) 11/22/2021 Sex and Gender Information Value [...] strength while taking prednisone and for osteopenia): 4712-2574 mg total daily, calcium citrate preferred; buy [...] follow-up in the Division of Rheumatology at [facility]. Next appointment in 6 months along with cardiology sarcoidosis clinic Rheumatology-related medications: Prescriptions, laboratory monitoring, and refills will be managedby the Division of Rheumatology at [facility]. Disease flares or relapse: Division of Rheumatology flare management protocols will be implemented. Rajat SHIRLEY Rheumatology documented in this encounter Plan of Treatment Not on file documented as of this encounter Visit Diagnoses Diagnosis Sarcoidosis- Primary Monitoring For Therapeutic Drug Therapy Osteopenia documented in this encounter
--- OUTSIDE RECORDS SUMMARY | 2023-07-04 05:22 | XMS_ITS | Encounter Summary ---
Author Name Unknown Organization [facility] Address [address] [place] [address] Care Team Providers Care Stucco Applicator Name Role Phone Unavailable Primary Care Provider Unavailabl e Reason for Referral * Outpatient (Routine) - Authorized Specialty Diagnoses / Procedures Referred By Contac t Referred To Contact Cardiovascular Disease Neisha Nolan APRN, C.N.P., M.S.N. [address] [place] [phone] [facility] Referral ID Status Reason Start Date Expiration Date V isits Requested Visits Authorized [id number] Authorized 04/08/2023 10/07/2024 1 1 OMER SERVICE ASSOCIATE * Outpatient (Routine) - Pending Review Specialty Diagnoses / Procedures Referred By Contac t Referred To Contact Diagnoses Sarcoid Myocarditis (HCC) Procedures PET CT Cardiac Sarcoid Neisha Nolan APRN, C.N.P., M.S.N. [address] [place] [phone] [facility] Referral ID Status Reason Start Date Expiration Date V isits Requested Visits Authorized [id number] Pending Review 04/08/2023 2024 1 1 OMER SERVICE ASSOCIATE * Outpatient (Routine) - Authorized Specialty Diagnoses / Procedures Referred By Contac t Referred To Contact Diagnoses Sarcoid Myocarditis (HCC) Procedures ECG Heart rhythm monitor (Holter) Neisha Nolan APRN, C.N.P., M.S.N. [address] [place] [phone] [facility] Referral ID Status Reason Start Date Expiration Date V isits Requested Visits Authorized [id number] Authorized 04/08/2023 2024 1 1 OMER SERVICE ASSOCIATE * Outpatient (Routine) - Authorized Specialty Diagnoses / Procedures Referred By Contac t Referred To Contact Diagnoses Sarcoid Myocarditis (HCC) Procedures Echo Transthoracic (TTE) Neisha Nolan APRN, C.N.P., M.S.N. [address] [place] [phone] [facility] Referral ID Status Reason Start Date Expiration Date V isits Requested Visits Authorized [id number] Authorized 04/08/2023 2024 1 1 OMER SERVICE ASSOCIATE * Outpatient (Routine) - Closed Specialty Diagnoses / Procedures Referred By Contac t Referred To Contact Rheumatology Diagnoses Sarcoidosis Neisha Nolan APRN, C.N.P., M.S.N. 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 [address] [place] [address] Sarcoid Myocarditis (HCC) (Primary Dx); Sarcoidosis Social History Tobacco Use Types Packs/Day Years Used Date Smoking Tobacco: Former Cigarettes 0.5 10 0 02/25/1994 - 02/26/2004 Smokeless Tobacco: Never Tobacco Cessation:Counseling Given: Not Answered Alcohol Use Standard Drinks/Week Comments Yes 2 (1 standard drink = 0.6 oz pur e alcohol) [facility] [email or web address] Answer Date Recorded In the past 12 months has e [employer], gas, oil, or water [employer] threatened to shut off services in your [...] week 11/22/2021 How often do you attend [facility] or protestant services? More than 4 times per year 11/22/2021 Do you belong to any clubs o r organizations such as sabianist groups, unions, fraternal or athletic groups, or [...] and heating? Not hard at all 11/22/2021 [facility] of Occupat ional Health - [...] your living situation today? I have a [facility] place to live 03/30/2023 Education Answer Date Recorded What is the highest level of school you have completed or the highest degree you have received? Master's degree (e.g., MA, MS, Arti, MEd, ANTENNA INSTALLER, GALA) 11/22/2021 Sex and Gender Information Value Date Recorded Sex Assigned at Female 11/22/2021 11:24 PM CDT Gender Identity Female 11/22/2021 11:24 PM CDT Sexual Orientation Lesbian or Alonso 11/22/2021 11 :24 PM CDT documented as of this encounter Last Filed Vital Signs Vital Sign Reading Time Taken Comments Blood Pressure 153/85 04/04/2023 1:48 PM CUSTOMER SERVICE ASSOCIATE Pulse 82 04/04/2023 1:48 PM CUSTOMER SERVICE ASSOCIATE Temperature - - Respiratory Rate - - Oxygen Saturation - - Inhaled Oxygen Concentration - - Weight 106 kg (232 lb 14.7 oz) 04/04/2023 1:46 P M CUSTOMER SERVICE ASSOCIATE Height 171 cm (5' 7.32) 04/04/2023 1:46 PM CUSTOMER SERVICE ASSOCIATE Body Mass Index 36.13 04/04/2023 1:46 PM CUSTOMER SERVICE ASSOCIATE documented in this encounter Progress Notes * Neisha Nolan, JESSIKA, C.N.P., M.S.N. - 04/04/2023 2:00 PM CST PRIMARY CARE PROVIDER No primary care provider on file. LOCAL COMMERCIAL SPECIALIST Transferring Care to [facility] CHIEF COMPLAINT / REASON FOR VISIT Cardiac Sarcoid HISTORY OF PRESENT ILLNESS Ms. Rice is a 58 y.o. female who presents to [facility] for second opinion on [...] that medication and asked for visit with [facility] Sarcoid for transfer of care. Initial presentation [...] (COVID-19) - MODERNA (12 YEARS AND OLDER) [id number] 12/25/2022 SARS-COV-2 (COVID-19) - MODERNA(Discontinued) 12/29/2020, 09/28/2021 [...] 11/21/2021 10:02 AM No results found for: 63HDDOIDZP0, 25OHVITDTTL, LPMY48BKY No results found for: GLUF, HGBA1C Lab [...] (to protect bone strength while taking prednisone): 7580-6014 mg total daily, calcium citrate preferred; buy [...] months thereafter Neisha Nolan APRN, C.N.P., M.S.N. OMER SERVICE ASSOCIATE documented in this encounter Plan of Treatment [...]
--- OUTSIDE RECORDS SUMMARY | 2023-07-04 05:22 | XMS_ITS | Encounter Summary ---
Author Name Unknown Organization [facility] Address [address] [place] [address] Care Team Providers Care Zinc Miner Blasting Name Role Phone Unavailable Primary Care Provider Unavailabl e Encounter Details Date Type Department Care Team ([facility] st Contact Info) Description 06/12/2023 11:30 AM CDT Education Division of Rheumatology in [place], [place] [address] [place] [phone] Olivia Arreguin M.D. [address] [place] [phone] Clark Beebe R.NSandie [address] [place] [phone] Sarcoidosis; Immunodeficiency Due To Drugs (HCC) Social History Tobacco Use Types Packs/Day Years Used Date Smoking Tobacco: Former Cigarettes 0.5 10 0 02/25/1994 - 02/26/2004 Passive Smoke Exposure: Past Smokeless Tobacco: Never Alcohol Use Standard Drinks/Week Comments Yes 2 (1 standard drink = 0.6 oz pur e alcohol) [facility] Utilities Answer Date Recorded In [...] How often do you attend chur or yazidi services? More than 4 times per year 11/22/2021 Do you belong to any clubs o r organizations such as denominational groups, unions, fraternal or [...] 11/22/2021 [facility] [place] of Occupat ional Health - Occupational Stress [...] living situation today? I have a [facility] place to live 03/30/2023 Education Answer Date Recorded What is the highest level of school you have completed or the highest degree you have received? Master's degree (e.g., MA, MS, Arti, MEd, SHIPYARD PAINTING SUPERVISOR, GALA) 11/22/2021 Sex and Gender Information [...]
--- OUTSIDE RECORDS SUMMARY | 2023-07-04 05:22 | XMS_ITS | Encounter Summary ---
Author Name Unknown Organization [facility] Address [address] [place] [address] Care Team Providers Care Child And Family Counselor Name Role Phone Unavailable Primary Care Provider Unavailabl e Encounter Details Date Type Department Care Team (Latest Contact Info) Description 06/12/2023 12:01 PM CDT - 06/12/2023 12:55 PM CDT Hospital Encounter Department of Laboratory Medicine and Pathology, [facility] in [place], [place] [address] [place] [phone] Olivia Arreguin M.D. [address] [place] [phone] Sarcoidosis; Immunodeficiency Due To Drugs (HCC) Discharge Disposition: Home or Self Care Social History Tobacco Use Types Packs/Day Years Used Date Smoking Tobacco: Former Cigarettes 0.5 10 0 02/25/1994 - 02/26/2004 Passive Smoke Exposure: Past Smokeless Tobacco: Never Alcohol Use Standard Drinks/Week Comments Yes 2 (1 standard drink = 0.6 oz pur e alcohol) [facility] Utilities Answer Date Recorded In the past 12 months has e [employer], gas, oil, or water [employer] threatened to shut off services in your [...] How often do you attend chur or congregation services? More than 4 times per year 11/22/2021 Do you belong to any clubs o r organizations such as scientologist groups, unions, fraternal or [...] and heating? Not hard at all 11/22/2021 [facility] [place] of Occupat ional Health - Occupational Stress [...] your living situation today? I have a [facility] place to live 03/30/2023 Education Answer Date Recorded What is the highest level of school you have completed or the highest degree you have received? Master's degree (e.g., MA, MS, Arti, MEd, PLANT SECURITY GUARD, GALA) 11/22/2021 Sex and Gender Information Value [...] Olivia Arreguin M.D. LAB BLOOD ADD- ON [facility] [address] [place] [address], [facility] [address] [place] [address] * HBc Total Ab, Serum (06/12/2023 12:28 PM CDT) Pathologist [facility] HBc Total Ab, S Negative Negative 06/12/2023 8:08 PM CDT [facility] Blood (Blood, Venous) 06/12/2023 12:28 PM CDT 06/12/2023 4:50 PM CDT Olivia Arreguin M.D. LAB MICROBIOLO GY - BLOOD ORDERABLES [facility] [address] [place] [address] [facility] [address] [place] [address] * HBs Antibody, Serum (06/12/2023 12:28 PM CDT) Pathologist [facility] HBs Antibody, S Negative 06/12/2023 8:08 PM CDT [facility] Comment: Patient is presumed to be not immune to infection with HBV. ----REFERENCE VALUE---- Unvaccinated: Negative Vaccinated: Positive HBs Antibody, Quantitative, S <5.0 mIU/mL 06/12/2023 8:08 PM CDT [facility] Comment: ----REFERENCE VALUE---- Unvaccinated: <5.0 Vaccinated: >=12.0 Blood (Blood, Venous) 06/12/2023 12:28 PM CDT 06/12/2023 4:50 PM CDT Olivia Arreguin M.D. LAB MICROBIOLO GY - BLOOD ORDERABLES [facility] [address] [place] [address] [facility] [address] [place] [address] * (ABNORMAL) Comprehensive Metabolic Panel (06/12/2023 12:28 PM CDT) [facility] Potassium, S 4.2 3.6 - 5.2 mmol/L [...] [facility]/ZIP Co de Phone Number [facility] 200 [place] [address], [address] [address] * Sedimentation Rate (06/12/2023 12:27 PM CDT) Sedimentation Rate, B 16 2 - 22 mm/h 06/12/2023 1:57 PM CDT DTL Blood (Blood, Venous) 06/12/2023 12:27 PM CDT 06/12/2023 12:51 PM CDT Olivia Arreguin M.D. LAB BLOOD ADD- ON Performing Organization Address City/[facility]/ZIP Co de Phone Number [facility] 200 [place] [address], [facility] 200 [place] [address] * HCV Ab w/Reflex to HCV PCR, Serum (06/12/2023 12:27 PM CDT) HCV Ab, S Negative Negative 06/14/2023 10:56 AM CDT [facility] Comment: Consumption of high-dose biotin supplement within 12 hours of blood collection for this test can cause false-negative results. Blood (Blood, Venous) 06/12/2023 12:27 PM CDT 06/12/2023 4:50 PM CDT Olivia Arreguin M.D. LAB MICROBIOLO GY - BLOOD ORDERABLES Performing Organization Address City/[facility]/ZIP Co de Phone Number [facility] [address] [place] [address] [facility] [address] [place] [address] * Hepatitis B Surface Antigen (06/12/2023 12:27 PM CDT) Pathologist [facility] HBs Antigen, S Negative Negative 06/14/2023 10:56 AM CDT [facility] Blood (Blood, Venous) 06/12/2023 12:27 PM CDT 06/12/2023 4:50 PM CDT Olivia Arreguin M.D. LAB MICROBIOLO GY - BLOOD ORDERABLES Performing Organization Address [place]/[facility] Co de Phone Number [facility] [address] [place] [address] [facility] [address] [place] [address] * 1,25-Dihydroxyvitamin D (06/12/2023 12:27 PM CDT) [facility] 1, 25 DIHYDROXYVITAMIN D, S 41 18 - 78 pg/mL 06/14/2023 2:01 PM CDT [facility] Comment: ----ADDITIONAL INFORMATION---- This test was developed and its performance characteristics determined by [facility] in a manner consistent with CLIA requirements. This test has not been cleared or approved by the U.S. Food and Drug Administration. Blood (Blood, Venous) 06/12/2023 12:27 PM CDT 06/13/2023 7:43 AM CDT Olivia Arreguin M.D. LAB BLOOD ADD- ON Performing Organization Address City/[facility]/ZIP Co de Phone Number [facility] [address] [place] [address] [facility] [address] [place] [address] [place] [address] * (ABNORMAL) 25-Hydroxyvitamin D2 and D3 (06/12/2023 12:27 PM CDT) Pathologist [facility] 25-Hydroxy D2 <4.0 ng/mL 06/17/2023 1:31 PM CDT SDS 25-Hydroxy D3 16 ng/mL 06/17/2023 1:31 PM CDT SDS 25-Hydroxy D Total 16(L) ng/mL 2023 1:31 PM CDT [facility] Comment: Interpretation: 10-19 ng/mL (mild to moderate deficiency) ----REFERENCE VALUE---- 25-HYDROXY D TOTAL (D2+D3) Optimum levels in the healthy population are 20-50, patients with bone disease may benefit from higher levels within this range. ----ADDITIONAL INFORMATION---- This test was developed and its performance characteristics determined by [facility] in a manner consistent with CLIA requirements. This test has not been cleared or approved by the U.S. Food and Drug Administration. Blood (Blood, Venous) 06/12/2023 12:27 PM CDT 06/13/2023 7:17 AM CDT Olivia Arreguin M.D. LAB BLOOD ADD- ON [facility] [address] [place] [address] [facility] [address] [place] [address] [place] [address] * (ABNORMAL) CBC with Differential, Blood (06/12/2023 12:27 PM CDT) [facility] Hemoglobin 13.4 11.6 - 15.0 g/dL 06/12/2023 [...] Olivia Arreguin M.D. 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
--- OUTSIDE RECORDS SUMMARY | 2023-07-04 05:22 | XMS_ITS | Encounter Summary ---
Author Name Unknown Organization [facility] Address [address] [place] [address] Care Team Providers Care Hat Parts Cutter Machine Name Role Phone Unavailable Primary Care Provider Unavailabl e Encounter Details Date Type Department Care Team (Latest Contact Info) Description 06/12/2023 12:00 PM CDT Hospital Encounter Department of Laboratory Medicine and Pathology, [facility], in [place], [place] [address] [place] [address] Olivia Arreguin M.D. [address] [place] [address] Sarcoidosis; Immunodeficiency Due To Drugs (HCC) Discharge Disposition: Home or Self Care Social History Tobacco Use Types Packs/Day Years Used Date Smoking Tobacco: Former Cigarettes 0.5 10 0 02/25/1994 - 02/26/2004 Passive Smoke Exposure: Past Smokeless Tobacco: Never Alcohol Use Standard Drinks/Week Comments Yes 2 (1 standard drink = 0.6 oz pur e alcohol) [facility] Utilities Answer Date Recorded In the past 12 months has e [employer], gas, oil, or water [employer] threatened to shut off services in your [...] How often do you attend chur or scientologist services? More than 4 times per year 11/22/2021 Do you belong to any clubs o r organizations such as worship groups, unions, fraternal or athletic groups, or [...] and heating? Not hard at all 11/22/2021 [facility] of Occupat ional Health - [...] Master's degree (e.g., MA, MS, Arti, MEd, SALES ASSISTANT INSTITUTIONAL SALES, GAL[employer]) 11/22/2021 Sex and Gender Information Value [...] LAB URINE ALEXANDER OLSEN Performing Organization Address City/[facility] Co de Phone Number [facility] [address] [place], [place] [phone] [place] [address] 200 [place] [address] * pH, Urine (06/12/2023 12:31 PM CDT) pH, U 5.8 4.5 - 8.0 06/12/2023 1:4 8 PM CDT DTL Urine 06/12/2023 12:3 1 PM CDT 06/12/2023 12:53 PM CDT Olivia Arreguin M.D. LAB URINE ALEXANDER OLSEN Performing Organization Address City/[facility] Co de Phone Number [facility] [address] [place], [place] [phone] [place] [address] 200 [place] [address] * Osmolality, Urine (06/12/2023 12:31 PM CDT) Osmolality, U 804 150 - 1150 mOsm/kg 06/12/2023 1:48 PM CDT DTL Urine 06/12/2023 12:3 1 PM CDT 06/12/2023 12:53 PM CDT Olivia Arreguin M.D. LAB URINE ALEXANDER OLSEN Performing Organization Address City/[facility] Co de Phone Number [facility] [address] [place], [place] [phone] [place] [address] 200 [place] [address] * Microscopic Automated (06/12/2023 12:31 PM CDT) [...] LAB URINE AYANAE RAÚL Performing Organization Address [facility] Co de Phone Number [facility] [address] [place], [place] [phone] [place] [address] * Protein/Creatinine Ratio, Random, Urine (06/12/2023 12:31 [...] LAB URINE ALEXANDER OLSEN Performing Organization Address City/[facility]/ZIP Co de Phone Number [facility] [address] [place] [address], [address] [address] * Urinalysis, with Microscopic: Urine, Midstream (06/12/2023 [...] LAB URINE ALEXANDER OLSEN Performing Organization Address City/[facility]/ZIP Co de Phone Number [facility] 200 [place] [address], [facility] DTL [facility] [address] [place] [address] * Calcium/Creatinine Ratio, Random, Urine (06/12/2023 12:31 [...] LAB URINE ALEXANDER OLSEN Performing Organization Address City/[facility]/ZIP Co de Phone Number 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
--- OUTSIDE RECORDS SUMMARY | 2023-07-04 05:22 | XMS_ITS | Encounter Summary ---
Author Name Unknown Organization [facility] Address [address] [place] [address] Care Team Providers Care Test Engineering Manager Name Role Phone Unavailable Primary Care Provider Unavailabl e Encounter Details Date Type Department Care Team (Latest Contact Info) Description 03/22/2023 Clinical Communication Department of Cardiovascular Medicine in [place], [place] [address] [place] [address] In Flight TechnicianZain M.D. Social History Tobacco Use Types Packs/Day Years Used Date Smoking Tobacco: Former Cigarettes 2004 Smokeless Tobacco: Never [facility] [employer] Answer Date Recorded In the past 12 months has [employer], gas, oil, or water company threatened [...] often do you attend chur ch or taoist services? More than 4 times per year 11/22/2021 Do you belong to any clubs o r organizations such as rastafarian groups, unions, fraternal or athletic groups, or [...] and heating? Not hard at all 11/22/2021 [facility] of Occupat ional Health - Occupational Stress [...] your living situation today? I have a [facility] place to live 03/30/2023 Education Answer Date Recorded What is the highest level of school you have completed or the highest degree you have received? Master's degree (e.g., MA, MS, Arti, MEd, CELL INSPECTOR, GALA) 11/22/2021 Sex and Gender Information Value [...] replies: P RST CVD HF PH SCHEDULING MACIST PER DIEM documented in this encounter Plan of Treatment Not on file documented as of this encounter Visit Diagnoses Not on filedocumented in this encounter
--- OUTSIDE RECORDS SUMMARY | 2023-07-04 05:22 | XMS_ITS | Encounter Summary ---
Author Name Unknown Organization [facility] Address [address] [place] [address] Care Team Providers Care Supply Teacher Name Role Phone Unavailable Primary Care Provider Unavailabl e Reason for Referral * Outpatient (Routine) - Authorized Specialty Diagnoses / Procedures Referred By Martina t Referred To Contact Sleep Medicine Diagnoses Apnea Sleep Obstructive Neisha Nolan APRN, C.N.Cheryl., M.S.N. [address] [place] [phone] [address] Phone: [phone] Referral ID Status Reason Start Date Expiration Date Visits Requested Visits Authorized [id number] Authorized Patient Preference 04/08/2023 10/07/2024 1 1 RAM FACILITATOR Encounter Details Date Type Department Care Team (Late st Contact Info) Description 04/08/2023 Orders Only Department of Cardiovascular Medicine in [place], [place] [address] [place] [phone] Neisha Nolan APRN C.N.P., M.S.N. [address] [place] [phone] Apnea Sleep Obstructive (Primary Dx); Sarcoid Myocarditis (HCC) Social History Tobacco Use Types Packs/Day Years Used Date Smoking Tobacco: Former Cigarettes 0.5 10 0 02/25/1994 - 02/26/2004 Smokeless Tobacco: Never Alcohol Use Standard Drinks/Week Comments Yes 2 (1 standard drink = 0.6 oz pur e alcohol) [facility] Utilities Answer Date Recorded In the past [...] often do you attend chur ch or holiness services? More than 4 times per year 11/22/2021 Do you belong to any clubs o r organizations such as muslim groups, unions, fraternal or [...] heating? Not hard at all 11/22/2021 [facility] [place] of Occupat ional Health - Occupational Stress [...] degree (e.g., MA, MS, Arti, MEd, PLANT ANATOMY TEACHER, GALA) 11/22/2021 Sex and Gender Information [...]
--- OUTSIDE RECORDS SUMMARY | 2023-07-04 05:22 | XMS_ITS | Encounter Summary ---
Author Name Unknown Organization [facility] Address [address] [place] [id number] Care Team Providers Care Critical Care Specialist Name Role Phone Unavailable Primary Care Provider Unavailabl e Encounter Details Date Type Department Care Team (Latest Contact Info) Description 04/04/2023 7:51 AM WAGE AND SALARY ADMINISTRATOR - 04/04/2023 8:39 AM WAGE AND SALARY ADMINISTRATOR Hospital Encounter Department of Laboratory Medicine and Pathology, [facility], in [place], [place] [address] [place] [phone] Neisha Nolan, JESSIKA, C.N.P., M.S.N. [address] [place] [phone] Failure Heart (HCC) Discharge Disposition: Home or Self Care Social History Tobacco Use Types Packs/Day Years Used Date Smoking Tobacco: Former Cigarettes 0.5 10 0 02/25/1994 - 02/26/2004 Smokeless Tobacco: Never Alcohol Use Standard Drinks/Week Comments Yes 2 (1 standard drink = 0.6 oz pur e alcohol) [facility] Utilities Answer Date Recorded In the past 12 months has e [employer], gas, oil, or water [employer] threatened to shut off services in your [...] How often do you attend chur or spiritism services? More than 4 times per year 11/22/2021 Do you belong to any clubs o r organizations such as druze groups, unions, fraternal or athletic groups, or [...] and heating? Not hard at all 11/22/2021 [facility] of Occupat ional Health - Occupational Stress [...] your living situation today? I have a [facility] place to live 03/30/2023 Education Answer Date Recorded What is the highest level of school you have completed or the highest degree you have received? Master's degree (e.g., MA, MS, Arti, MEd, SNOW REMOVAL/PLOWING, GALA) 11/22/2021 Sex and Gender Information Value [...] GLUCOSE, FASTING, S/P Routine 04/04/2023 8:01 AM WAGE AND SALARY ADMINISTRATOR Failure Heart ([facility]) LIPID PANEL, S Routine 04/04/2023 8:00 AM WAGE AND SALARY ADMINISTRATOR Failure Heart ([facility]) NT-PRO B-TYPE NATRIURETIC PEPTIDE (BNP), S Routine 04/04/2023 8:00 AM WAGE AND SALARY ADMINISTRATOR Failure Heart ([facility]) CBC WITH DIFFERENTIAL, B Routine 024 8:00 AM WAGE AND SALARY ADMINISTRATOR Failure Heart ([facility]) BUN (BLOOD UREA NITROGEN), S/P Routine 04/04/2023 8:00 AM WAGE AND SALARY ADMINISTRATOR Failure Heart ([facility]) ASPARTATE AMINOTRANSFERASE (AST), S/P Routine 04/04/2023 8:00 AM WAGE AND SALARY ADMINISTRATOR Failure Heart ([facility]) THYROID-STIMULATING HORMONE-SENSITIVE (S-TSH) Routine 04/04/2023 8:00 AM WAGE AND SALARY ADMINISTRATOR Failure Heart ([facility]) SODIUM, S/P Routine 04/04/2023 8:00 AM WAGE AND SALARY ADMINISTRATOR Failure Heart ([facility]) POTASSIUM, S/P Routine 04/04/2023 8:00 AM WAGE AND SALARY ADMINISTRATOR Failure Heart (HCC) CREATININE WITH EGFR, S/P Routine 04/04/2023 8:00 AM WAGE AND SALARY ADMINISTRATOR Failure Heart (HCC) BICARBONATE, B/S/P Routine 04/04/2023 8: 00 AM WAGE AND SALARY ADMINISTRATOR Failure Heart (HCC) documented in this encounter Results * Glucose, Fasting (04/04/2023 8:01 AM WAGE AND SALARY ADMINISTRATOR) Glucose, P 85 70 - 100 mg/dL 04/04/2023 8:59 AM WAGE AND SALARY ADMINISTRATOR DTL Last Intake 1 hr 04/04/2023 8:41 AM WAGE AND SALARY ADMINISTRATOR DTL Blood (Blood, Venous) 04/04/2023 8:01 AM WAGE AND SALARY ADMINISTRATOR 04/04/2023 8:41 AM WAGE AND SALARY ADMINISTRATOR Yas Schultz APRNN.P., M.S.N. LAB [place] [address], [facility] [place] [address] * NT-Pro B-Type Natriuretic Peptide (BNP) (04/04/2023 8:00 AM WAGE AND SALARY ADMINISTRATOR) Pathologist [facility] NT-Pro BNP 151 <=226 pg/mL 04/04/2023 9:16 AM WAGE AND SALARY ADMINISTRATOR DTL Comment: NT-proBNP values less than 300 [...] failure. Blood (Blood, Venous) 04/04/2023 8:00 AM WAGE AND SALARY ADMINISTRATOR 04/04/2023 8:41 AM WAGE AND SALARY ADMINISTRATOR Agustina Schultz APRN.P., M.S.N. LAB B LOOD ADD-ON [facility] [address] 200 [place] [address] * (ABNORMAL) Potassium (04/04/2023 8:00 AM WAGE AND SALARY ADMINISTRATOR) Potassium, S 3.4(L) 3.6 - 5.2 mmol/L 04/04/2023 9:16 AM WAGE AND SALARY ADMINISTRATOR DTL Blood (Blood, Venous) 04/04/2023 8:00 AM WAGE AND SALARY ADMINISTRATOR 04/04/2023 8:41 AM WAGE AND SALARY ADMINISTRATOR Neisha Nolan APRN, C.N.P., M.S.N. LAB B LOOD ADD-ON Performing Organization Address City/[facility]/ZIP Co de Phone Number [facility] [address] 200 [place] [address] * Bicarbonate (04/04/2023 8:00 AM WAGE AND SALARY ADMINISTRATOR) Bicarbonate, S 29 22 - 29 mmol/L 04/04/2023 9:16 AM WAGE AND SALARY ADMINISTRATOR DTL Blood (Blood, Venous) 04/04/2023 8:00 AM WAGE AND SALARY ADMINISTRATOR 04/04/2023 8:41 AM WAGE AND SALARY ADMINISTRATOR Yas Schultz APRNNJae., M.S.N. LAB B LOOD ADD-ON [facility] [address] 200 [place] [address] * S-TSH (Thyroid-Stimulating Hormone - Sensitive) (04/04/2023 8:00 AM WAGE AND SALARY ADMINISTRATOR) TSH, Sensitive 3.2 0.3 - 4.2 mIU/L 04/04/2023 9:16 AM WAGE AND SALARY ADMINISTRATOR DTL Blood (Blood, Venous) 04/04/2023 8:00 AM WAGE AND SALARY ADMINISTRATOR 04/04/2023 8:41 AM WAGE AND SALARY ADMINISTRATOR Neisha Kam Nolan APRN, C.N.P., M.S.N. LAB B LOOD ADD-ON [facility] [address] [place] [address], [facility] DTL [facility] [address] [place] [address] * (ABNORMAL) CBC with Differential, Blood (04/04/2023 8:00 AM WAGE AND SALARY ADMINISTRATOR) Hemoglobin 12.3 11.6 - 15.0 g/dL 04/04/2023 8:36 AM WAGE AND SALARY ADMINISTRATOR DTL Hematocrit 38.3 35.5 - 44.9 % 04/04/2023 8:36 AM WAGE AND SALARY ADMINISTRATOR DTL Erythrocytes 4.58 3.92 - 5.13 x10(12)/L 04/04/2023 8:36 AM WAGE AND SALARY ADMINISTRATOR DTL MCV 83.6 78.2 - 97.9 fL 04/04/2023 8:36 AM WAGE AND SALARY ADMINISTRATOR DTL RBC Distrib Width 15.0 12.2 - 16.1 % 04/04/2023 8:36 AM WAGE AND SALARY ADMINISTRATOR DTL Platelet Count 240 157 - 371 x10(9)/L 04/04/2023 8:36 AM WAGE AND SALARY ADMINISTRATOR DTL Leukocytes 6.2 3.4 - 9.6 x10(9)/L 04/04/2023 8:36 AM WAGE AND SALARY ADMINISTRATOR DTL Neutrophils 4.79 1.56 - 6.45 x10(9)/L 04/04/2023 8:36 AM WAGE AND SALARY ADMINISTRATOR DHPM Lymphocytes 0.35(L) 0.95 - 3.07 x10(9)/L 04/04/2023 8:36 AM WAGE AND SALARY ADMINISTRATOR DTL Monocytes 0.77 0.26 - 0.81 x10(9)/L 04/04/2023 8:36 AM WAGE AND SALARY ADMINISTRATOR DTL Eosinophils 0.18 0.03 - 0.48 x10(9)/L 04/04/2023 8:36 AM WAGE AND SALARY ADMINISTRATOR DTL Basophils 0.06 0.01 - 0.08 x10(9)/L 04/04/2023 8:36 AM WAGE AND SALARY ADMINISTRATOR DTL Blood (Blood, Venous) 04/04/2023 8:00 AM WAGE AND SALARY ADMINISTRATOR 04/04/2023 8:27 AM WAGE AND SALARY ADMINISTRATOR Neisha Kam Nolan APRN, C.N.P., M.S.N. LAB B LOOD ADD-ON [facility] [address] [place] [address], [facility] DTL [facility] [address] [place] [address] [facility] 200 [place] [address] * (ABNORMAL) Lipid Panel (04/04/2023 8:00 AM WAGE AND SALARY ADMINISTRATOR) Triglycerides 144 mg/dL 04/04/2023 9:16 AM WAGE AND SALARY ADMINISTRATOR DTL Comment: ----REFERENCE VALUE---- Normal: <150 mg/dL Borderline High: 150-199 mg/dL High: 200-499 mg/dL Very High: > or =500 mg/dL Cholesterol, Total 180 mg/dL 2023 9:16 AM WAGE AND SALARY ADMINISTRATOR DTL Comment: ----REFERENCE VALUE---- Desirable: < 200 mg/dL Borderline High: 200 - 239 mg/dL High: > or = 240 mg/dL Cholesterol, LDL, Calculated 107 mg/dL 04/04/2023 9:16 AM WAGE AND SALARY ADMINISTRATOR DTL Comment: ----REFERENCE VALUE---- Desirable: <100 mg/dL Above Desirable: 100-129 mg/dL Borderline High: 130-159 mg/dL High: 160-189 mg/dL Very High: >=190 mg/dL ----ADDITIONAL INFORMATION---- LDL cholesterol calculated using the Gardner/NIH equation. Cholesterol, HDL, S 48(L) >=50 mg/dL 04/04/2023 9:16 AM WAGE AND SALARY ADMINISTRATOR DTL Cholesterol, Non-HDL, Calculated 132 mg/dL 04/04/2023 9:16 AM WAGE AND SALARY ADMINISTRATOR DTL Comment: ----REFERENCE VALUE---- Desirable: <130 mg/dL Above Desirable: 130-159 mg/dL Borderline High: 160-189 mg/dL High: 190-219 mg/dL Very High: > or =220 mg/dL Fasting (8 HR or more) No 04/04/2023 8:41 AM WAGE AND SALARY ADMINISTRATOR DTL Blood (Blood, Venous) 04/04/2023 8:00 AM WAGE AND SALARY ADMINISTRATOR 04/04/2023 8:41 AM WAGE AND SALARY ADMINISTRATOR Neisha Nolan APRN, C.N.P., M.S.N. LAB B LOOD ADD-ON Performing Organization Address City/[facility] Co de Phone Number [facility] 200 [place] [address] * BUN (Blood Urea Nitrogen) (04/04/2023 8:00 AM WAGE AND SALARY ADMINISTRATOR) BUN (Blood Urea Nitrogen), S 12 6 - 21 mg/dL 04/04/2023 9:16 AM WAGE AND SALARY ADMINISTRATOR DT Blood (Blood, Venous) 04/04/2023 8:00 AM WAGE AND SALARY ADMINISTRATOR 04/04/2023 8:41 AM WAGE AND SALARY ADMINISTRATOR Neisha Nolan APRN, C.N.P., M.S.N. LAB B LOOD ADD-ON Performing Organization Address [facility] Co de Phone Number [facility] 200 [place] [address], [place] [address] * AST (Aspartate Aminotransferase) (04/04/2023 8:00 AM WAGE AND SALARY ADMINISTRATOR) Aspartate Aminotransferase (AST), S 18 8 - 43 U/L 04/04/2023 9:16 AM WAGE AND SALARY ADMINISTRATOR DTL Blood (Blood, Venous) 04/04/2023 8:00 AM WAGE AND SALARY ADMINISTRATOR 04/04/2023 8:41 AM WAGE AND SALARY ADMINISTRATOR Neisha Nolan APRN, C.N.P., M.S.N. LAB B LOOD ADD-ON [facility] [address] [place] [address], [facility] 200 [place] [address] * Creatinine with Estimated GFR (04/04/2023 8:00 AM WAGE AND SALARY ADMINISTRATOR) Creatinine 0.95 0.59 - 1.04 mg/dL 04/04/2023 9:16 AM WAGE AND SALARY ADMINISTRATOR DTL Estimated GFR (eGFR) 69 >=60 mL/min/BSA 04/04/2023 9:16 AM WAGE AND SALARY ADMINISTRATOR DTL Comment: Estimated GFR calculated using the 2020 CKD_EPI creatinine equation. Blood (Blood, Venous) 04/04/2023 8:00 AM WAGE AND SALARY ADMINISTRATOR 04/04/2023 8:41 AM WAGE AND SALARY ADMINISTRATOR Neisha Nolan APRN, C.N.P., M.S.N. LAB B LOOD ADD-ON Performing Organization Address City/[facility]/ZIP Co de Phone Number [facility] [address] [place] [address], [facility] 200 [place] [address] * Sodium (04/04/2023 8:00 AM WAGE AND SALARY ADMINISTRATOR) Sodium, S 145 135 - 145 mmol/L 04/04/2023 9:16 AM WAGE AND SALARY ADMINISTRATOR DTL Blood (Blood, Venous) 04/04/2023 8:00 AM WAGE AND SALARY ADMINISTRATOR 04/04/2023 8:41 AM WAGE AND SALARY ADMINISTRATOR Neisha Nolan APRN, C.N.P., M.S.N. LAB B LOOD ADD-ON [facility] [address] [place] [address], [facility] 200 [place] [address] documented in this encounter Visit Diagnoses Diagnosis Failure Heart (HCC) documented in this encounter
--- OUTSIDE RECORDS SUMMARY | 2023-07-04 05:22 | XMS_ITS | Encounter Summary ---
Author Name Unknown Organization [facility] Address [address] [place] [address] Care Team Providers Care Tax Intern Name Role Phone Unavailable Primary Care Provider Unavailabl e Reason for Referral * MRI/CAT/PET Scan (Routine) - Pending Review Specialty Diagnoses / Procedures Referred By Contac t Referred To Contact Radiology Diagnoses Sarcoidosis Procedures CT Chest without IV Contrast Rajat Pizarro M.B.B.S. [address] [place] [phone] [facility] Referral ID Status Reason Start Date Expiration Date V isits Requested Visits Authorized [id number] Pending Review 06/13/2023 06/12/2024 1 1 * Outpatient (Routine) - Authorized Specialty Diagnoses / Procedures Referred By Contac t Referred To Contact Rheumatology Rajat Pizarro M.BSandieB.S. [address] [place] [phone] [facility] Referral ID Status Reason Start Date Expiration Date V isits Requested Visits Authorized [id number] Authorized 06/13/2023 12/12/2024 1 1 * Specialty Diagnoses / Procedures Referred By Contac t Referred To Contact Olivia Arreguin M.D. 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 [address] [place] [phone] [facility] Referral ID Status Reason Start Date Expiration Date Visits Re quested Visits Authorized [id number] Closed 06/12/2023 06/11/2024 1 1 Reason for Visit * Outpatient (Routine) - Closed Specialty Diagnoses / Procedures Referred By Martina david Referred To Contact Rheumatology Diagnoses Sarcoidosis Neisha Nolan, JESSIKA, C.N.P., M.S.N. [address] [place] [phone] [facility] Referral ID Status Reason Start Date Expiration Date Visits Re quested Visits Authorized [id number] Closed 04/05/2023 10/04/2024 1 1 Encounter Details Date Type Department Care Team (Latest Contact Info) Description 06/12/2023 10:15 AM CDT Comprehensive Visit Division of Rheumatology in [place], [place] [address] [place] [phone] Rajat Pizarro M.B.B.S. [address] [place] [phone] Sarcoidosis (Primary Dx); Corticosteroid Treatment Field Services Analyst Systemic; Immunodeficiency Due To Drugs (HCC); Elevated Alkaline Phosphatase Social History Tobacco Use Types Packs/Day Years Used Date Smoking Tobacco: Former Cigarettes 0.5 10 0 02/25/1994 - 02/26/2004 Passive Smoke Exposure: Past Smokeless Tobacco: Never Alcohol Use Standard Drinks/Week Comments Yes 2 (1 standard drink = 0.6 oz pur e alcohol) [facility] Utilities Answer Date Recorded In [...] week 11/22/2021 How often do you attend [facility] or anabaptist services? More than 4 times per year 11/22/2021 Do you belong to any clubs o r organizations such as mosque groups, unions, fraternal or athletic groups, or [...] and heating? Not hard at all 11/22/2021 [facility] of Occupat ional Health - Occupational Stress [...] Master's degree (e.g., MA, MS, Arti, MEd, ELECTRIC BLANKET WIRER, GALA) 11/22/2021 Sex and Gender Information Value Date Recorded Sex Assigned at Female 11/22/2021 11:24 PM CDT Gender Identity Female 11/22/2021 11:24 PM CDT Sexual Orientation Lesbian or Alonso 11/22/2021 11 :24 PM CDT documented as of this encounter Patient Instructions * Patient Instructions* Olivia Arreguin M.D. - 06/12/2023 10:15 AM CDT Percussion Instrument Repairer- yearly, fax records to us Methotrexate Dr. [...] 2021 for frequent PVCs by a local plane captain. She was not noted to have structural heart disease with just mild mitral regurgitation with mild mitral valve prolapse of the posterior leaflet. She established with a plane captain in [place] in early 2021 after moving to [place]. A Holter demonstrated 19.3% PVC burden, some [...] not noticed wheezing. The Dulera that her simulation technician prescribed has been helpful. She has not [...] her labs are acceptable. She met w [facility] nursing today to review subcutaneous [...] in the Division of Rheumatology at [facility] with Dr. Pizarro. Next appointment in 6 months. Rheumatology-related medications: Prescriptions, laboratory monitoring, and refills will be managedby the Division of Rheumatology at [facility]. Disease flares or relapse: Division of Rheumatology [...] patient is a 58 yo female from [facility] who has seen Dr Ricky kwan in [...] lupus pernio Treatment Prednisone burst and taper ([id number]) Cellcept Has been off treatment for 6 [...] Nurse education for methotrexate Uveitis screen by esol instructor locally, reports to be faxed to us [...] and methotrexate Rest per Dr. Rodríguez SHIRLEY Sole Leveling Machine Operator Rheumatology documented in this encounter Plan of [...] Bone Mineral Density (BMD) analysis performed on UMicIt with serial number [id number]. ? FINDINGS: Left Hip: Femur Neck: BMD [...] including images and graphs, is available in [employer]. In the absence of other causes of [...] image stored in the BMD study in Rim[place] Street[place]fl[place]), the calculated ten year probability of fracture is: FRAX Risk Factors: None FRAX (10 yr probability) adjusted for TBS: Major Osteoporotic Fracture: ??4.4 % Hip Fracture: ?0.2 % ? Procedure Note Scot Carrasco M.D. - 06/12/2023 EXAM: BMD BONE DENSITY SPINE HIPS Bone Mineral Density (BMD) analysis performed on UMicIt with serialnumber [id number]. FINDINGS: Left Hip: Femur Neck: BMD = [...] LAB URINE ALEXANDER OLSEN Performing Organization Address City/[facility]/ZIP Co de Phone Number [facility] [address] [place] [address], [facility] DTL [facility] 200 [place] [address] * Urinalysis, with Microscopic: Urine, Midstream (06/12/2023 [...] LAB URINE ALEXANDER OLSEN Performing Organization Address City/[facility]/ZIP Co de Phone Number [facility] [address] [place] [address], [place] DTL [facility] [address] [place] [address] * Calcium/Creatinine Ratio, Random, Urine (06/12/2023 12:31 [...] LAB URINE ORDE RABLES Performing Organization Address City/[facility]/ZIP Co de Phone Number [facility] 200 [place] [address], [facility] 200 [place] [address] * (ABNORMAL) CRP (C-Reactive Protein) (06/12/2023 12:28 PM CDT) [facility] C-Reactive Protein (CRP), S 5.2(H) <5.0 mg/L 06/12/2023 1:27 PM CDT DT Blood (Blood, Venous) 06/12/2023 12:28 PM CDT 06/12/2023 1:04 PM CDT Olivia Arreguin M.D. LAB BLOOD ADD- ON [facility] 200 [place] [address], [facility] 200 [place] [address] * HBc Total Ab, Serum (06/12/2023 12:28 PM CDT) Pathologist [facility] HBc Total Ab, S Negative Negative 06/12/2023 8:08 PM CDT [facility] Blood (Blood, Venous) 06/12/2023 12:28 PM CDT 06/12/2023 4:50 PM CDT Olivia Arreguin M.D. LAB MICROBIOLO GY - BLOOD ORDERABLES Performing Organization Address [facility]/RUST Co de Phone Number [place] [phone] [place] [address] [place] [phone] [place] [address] * HBs Antibody, Serum (06/12/2023 12:28 PM CDT) Pathologist [facility] HBs Antibody, S Negative 06/12/2023 8:08 PM CDT [facility] Comment: Patient is presumed to be not immune to infection with HBV. ----REFERENCE VALUE---- Unvaccinated: Negative Vaccinated: Positive HBs Antibody, Quantitative, S <5.0 mIU/mL 06/12/2023 8:08 PM CDT [facility] Comment: ----REFERENCE VALUE---- Unvaccinated: <5.0 Vaccinated: >=12.0 Blood (Blood, Venous) 06/12/2023 12:28 PM CDT 06/12/2023 4:50 PM CDT Olivia Arreguin M.D. LAB MICROBIOLO GY - BLOOD ORDERABLES Performing Organization Address [facility]/RUST Co de Phone Number [facility] [address] [place] [address] [facility] [address] [place] [address] * (ABNORMAL) Comprehensive Metabolic Panel (06/12/2023 12:28 PM CDT) [facility] Potassium, S 4.2 3.6 - 5.2 mmol/L [...] M.D. LAB BLOOD ADD- ON [facility] [address] [place] [address], [facility] [address] [place] [address] * Sedimentation Rate (06/12/2023 12:27 PM CDT) Sedimentation Rate, B 16 2 - 22 mm/h 06/12/2023 1:57 PM CDT DT Blood (Blood, Venous) 06/12/2023 12:27 PM CDT 06/12/2023 12:51 PM CDT Olivia Arreguin M.D. LAB BLOOD ADD- ON [facility] [address] [place] [address], [facility] [address] [place] [address] * HCV Ab w/Reflex to HCV PCR, Serum (06/12/2023 12:27 PM CDT) HCV Ab, S Negative Negative 06/14/2023 10:56 AM CDT [facility] Comment: Consumption of high-dose biotin supplement within 12 hours of blood collection for this test can cause false-negative results. Blood (Blood, Venous) 06/12/2023 12:27 PM CDT 06/12/2023 4:50 PM CDT Olivia Arreguin M.D. LAB MICROBIOLO GY - BLOOD ORDERABLES Performing Organization Address [facility]/RUST Co de Phone Number [facility] [address] [place] [address] [facility] [address] [place] [address] * Hepatitis B Surface Antigen (06/12/2023 12:27 PM CDT) HBs Antigen, S Negative Negative 06/14/2023 10:56 AM CDT [facility] Blood (Blood, Venous) 06/12/2023 12:27 PM CDT 06/12/2023 4:50 PM CDT Olivia Arreguin M.D. LAB MICROBIOLO GY - BLOOD ORDERABLES Performing Organization Address City/[facility]/ZIP Co de Phone Number [facility] [address] [place] [address] [facility] [address] [place] [address] * 1,25-Dihydroxyvitamin D (06/12/2023 12:27 PM CDT) 1, 25 DIHYDROXYVITAMIN D, S 41 18 - 78 pg/mL 06/14/2023 2:01 PM CDT [facility] Comment: ----ADDITIONAL INFORMATION---- This test was developed and its performance characteristics determined by [facility] in a manner consistent with CLIA requirements. This test has not been cleared or approved by the U.S. Food and Drug Administration. Blood (Blood, Venous) 06/12/2023 12:27 PM CDT 06/13/2023 7:43 AM CDT Olivia Arreguin M.D. LAB BLOOD ADD- ON [facility] [address] [place] [address] [facility] [address] [place] [address] [place] [address] * (ABNORMAL) 25-Hydroxyvitamin D2 and D3 (06/12/2023 12:27 PM CDT) 25-Hydroxy D2 <4.0 ng/mL 06/17/2023 1:31 PM CDT [facility] 25-Hydroxy D3 16 ng/mL 06/17/2023 1:31 PM CDT [facility] 25-Hydroxy D Total 16(L) ng/mL 2023 1:31 PM CDT [facility] Comment: Interpretation: 10-19 ng/mL (mild to moderate deficiency) ----REFERENCE VALUE---- 25-HYDROXY D TOTAL (D2+D3) Optimum levels in the healthy population are 20-50, patients with bone disease may benefit from higher levels within this range. ----ADDITIONAL INFORMATION---- This test was developed and its performance characteristics determined by [facility] in a manner consistent with CLIA requirements. This test has not been cleared or approved by the U.S. Food and Drug Administration. Blood (Blood, Venous) 06/12/2023 12:27 PM CDT 06/13/2023 7:17 AM CDT Olivia Arreguin M.D. LAB BLOOD ADD- ON [facility] [address] [place] [address] [facility] [address] [place] [address] [place] [address] * (ABNORMAL) CBC with Differential, Blood (06/12/2023 [...] Olivia Arreguin M.D. LAB BLOOD ADD- ON [facility] [address] [place] [address], [facility] DTL [facility] [address] [place] [address] [facility] [address] [place] [address] * GGT (Gamma-Glutamyltransferase) (06/12/2023 12:22 PM CDT) Gamma Glutamyltransferase (GGT), S 10 5 - 36 U/L 06/12/2023 6:19 PM CDT DTL Blood (Blood, Venous) 06/12/2023 12:22 PM CDT 06/12/2023 5:18 PM CDT Olivia Arreguin M.D. LAB BLOOD ADD- ON [facility] [address] [place] [address], 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
--- OUTSIDE RECORDS SUMMARY | 2023-07-04 05:22 | XMS_ITS | Encounter Summary ---
Author Name Unknown Organization [facility] Address [address] [place] [address] Care Team Providers Care Butter Printer Name Role Phone Unavailable Primary Care Provider Unavailabl e Reason for Visit * Reason Onset Date Comments Pre-visit Intake 06/11/2023 INDIRA done 06/10 E EF Encounter Details Date Type Department Care Team (Latest Contact Info) Description 06/11/2023 9:00 AM CDT Clinical Communication Virtual Review in [place], [place] 200 [place] [phone] Pre-visit Intake (INDIRA done 06/10 EEF) Social History Tobacco Use Types Packs/Day Years Used Date Smoking Tobacco: Former Cigarettes 0.5 10 0 02/25/1994 - 02/26/2004 Passive Smoke Exposure: Past Smokeless Tobacco: Never Tobacco Cessation:Counseling Given: Not Answered Alcohol Use Standard Drinks/Week Comments Yes 2 (1 standard drink = 0.6 oz pur e alcohol) [facility] Utilities Answer Date Recorded In the past 12 months has [facility] [employer], [employer], oil, or water [employer] threatened to shut off services in your [...] week 11/22/2021 How often do you attend [facility] or amish services? More than 4 times per year [...] and heating? Not hard at all 11/22/2021 [facility] of Occupat ional Health - Occupational Stress [...] your living situation today? I have a [facility] place to live 03/30/2023 Education Answer Date Recorded What is the highest level of school you have completed or the highest degree you have received? Master's degree (e.g., MA, MS, Arti, MEd, SALES ACCOUNT MANAGER, GALA) 11/22/2021 Sex and Gender Information Value [...]
--- OUTSIDE RECORDS SUMMARY | 2023-07-04 05:22 | XMS_ITS | Encounter Summary ---
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 [address] [place] [phone] 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 200 [place] [address] [facility] Referral ID Status Reason Start Date Expiration Date Visits Re quested Visits Authorized [id number] Closed 06/12/2023 06/11/2024 1 1 Encounter Details Date Type Department Care Team (Latest Contact Info) Description 06/12/2023 12:56 PM CDT - 06/12/2023 11:59 PM CDT Hospital Encounter Department of Radiology, [facility], in [place], [place] [address] [place] [address] Olivia Arreguin M.D. [address] [place] [address] Sarcoidosis; Corticosteroid Treatment Bull Driver Systemic; Immunodeficiency Due To Drugs (HCC) Discharge Disposition: Home or Self Care Social History Tobacco Use Types Packs/Day Years Used Date Smoking Tobacco: Former Cigarettes 0.5 10 0 02/25/1994 - 02/26/2004 Passive Smoke Exposure: Past Smokeless Tobacco: Never Alcohol Use Standard Drinks/Week Comments Yes 2 (1 standard drink = 0.6 oz pur e alcohol) [facility] Utilities Answer Date Recorded In the past [...] often do you attend chur ch or hindu services? More than 4 times per year 11/22/2021 Do you belong to any clubs o r organizations such as faith groups, unions, fraternal or athletic groups, or [...] and heating? 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 ? FINDINGS: Left Hip: Femur Neck: BMD [...] including images and graphs, is available in [employer]. In the absence of other causes of [...] Bone Mineral Density (BMD) analysis performed on PureLiFi with serialnumber [id number]. FINDINGS: Left Hip: Femur Neck: BMD = [...] report, including images and graphs,is available in [employer]. 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
--- OUTSIDE RECORDS SUMMARY | 2023-07-04 05:22 | XMS_ITS | Encounter Summary ---
Author Name Unknown Organization [facility] Address [address] [place] [address] Care Team Providers Care Stationary Steam Engineer Name Role Phone Unavailable Primary Care Provider Unavailabl e Reason for Referral * Outpatient (Routine) - Closed Specialty Diagnoses / Procedures Referred By Martina t Referred To Contact Diagnoses Failure Heart (HCC) Procedures DX Chest AP or PA and Lateral 2 Views Neisha Nolan APRN, C.NCher, M.S.N. [address] [place] [phone] [facility] Referral ID Status Reason Start Date Expiration Date Visits Re quested Visits Authorized [id number] Closed 03/22/2023 03/21/2024 1 1 EON CHIEF Reason for Visit * Outpatient (Routine) - Closed Specialty Diagnoses / Procedures Referred By Contac t Referred To Contact Diagnoses Failure Heart (HCC) Procedures DX Chest AP or PA and Lateral 2 Views Neisha Nolan APRN, C.NJae., M.S.N. [address] [place] [phone] [facility] Referral ID Status Reason Start Date Expiration Date Visits Re quested Visits Authorized [id number] Closed 03/22/2023 03/21/2024 1 1 Encounter Details Date Type Department Care Team (Latest Contact Info) Description 04/04/2023 8:40 AM SURGEON CHIEF - 04/04/2023 11:59 PM SURGEON CHIEF Hospital Encounter Department of Radiology, [facility], in [place], [place] [address] [place] [address] Neisha Nolan, JESSIKA, C.N.P., M.S.N. [address] [place] [address] Failure Heart (HCC) Discharge Disposition: Home or Self Care Social History Tobacco Use Types Packs/Day Years Used Date Smoking Tobacco: Former Cigarettes 0.5 10 0 02/25/1994 - 02/26/2004 Smokeless Tobacco: Never Alcohol Use Standard Drinks/Week Comments Yes 2 (1 standard drink = 0.6 oz pur e alcohol) [facility] Utilities Answer Date Recorded In the past 12 months has e [employer], gas, oil, or water [employer] threatened to shut off services in your [...] often do you attend chur ch or advent services? More than 4 times per year 11/22/2021 Do you belong to any clubs o r organizations such as buddhist groups, unions, fraternal or athletic groups, or [...] and heating? Not hard at all 11/22/2021 [facility] of Occupat ional Health - Occupational Stress [...] Master's degree (e.g., MA, MS, Arti, MEd, CASING IN LINE FEEDER, GALA) 11/22/2021 Sex and Gender Information Value [...] inpatients and all outpatients) 04/04/2023 8:46 AM SURGEON CHIEF Failure Heart (HCC) documented in this encounter Results * DX Chest AP or PA and Lateral 2 Views (04/04/2023 8:46 AM SURGEON CHIEF) Anatomical Region Laterality Modality Chest, Thoracic RST LOS, Tho racic ARZ LOS, Thoracic FLA LOS N/A Digital Radiography Impressions 04/04/2023 9:32 AM SURGEON CHIEF Patchy perihilar nodularity with mild hilar adenopathy. Findings are unchanged since 08/15/2021 and would be consistent with sarcoidosis. Heart size at upper limits of normal. Calcified and tortuous aorta. Abdominal surgical clips. Narrative 04/04/2023 9:32 AM SURGEON CHIEF EXAM: ??DX CHEST AP OR PA AND [...]
--- OUTSIDE RECORDS SUMMARY | 2023-07-04 05:22 | XMS_ITS | Encounter Summary ---
Author Name Unknown Organization [facility] Address [address] [place] [address] Care Team Providers Care Civil Division Deputy Sheriff Name Role Phone Unavailable Primary Care Provider Unavailabl e Encounter Details Date Type Department Care Team (Late st Contact Info) Description 05/07/2023 Orders Only Division of Gastroenterology in [place], [place] [address] [place] [phone] Emeterio Friedman M.D. [address] [place] [address] Genetic Susceptibility To Disease Social History Tobacco Use Types Packs/Day Years Used Date Smoking Tobacco: Former Cigarettes 0.5 10 0 02/25/1994 - 02/26/2004 Smokeless Tobacco: Never Alcohol Use Standard Drinks/Week Comments Yes 2 (1 standard drink = 0.6 oz pur e alcohol) [facility] Utilities Answer Date Recorded In the past 12 months has [facility] [employer], gas, oil, or water [employer] threatened to shut off services in your [...] How often do you attend chur or buddhism services? More than 4 times per year 11/22/2021 Do you belong to any clubs o r organizations such as tenriism groups, unions, fraternal or athletic groups, or [...] and heating? Not hard at all 11/22/2021 [facility] of Occupat ionar Health - Occupational Stress Questionnaire Answer Date [...] your living situation today? I have a [facility] place to live 03/30/2023 Education Answer Date Recorded What is the highest level of school you have completed or the highest degree you have received? Master's degree (e.g., MA, MS, Arti, MEd, GENERATOR ASSEMBLER, GALA) 11/22/2021 Sex and Gender Information Value [...] Comments EXT TAPESTRY Routine 02/05/2022 12:00 AM RECORD PRESS OPERATOR Genetic Susceptibility To Disease documented in this encounter Results * EXT Tapestry (02/05/2022 12:00 AM RECORD PRESS OPERATOR) Gene Studied BRCA1,BRCA2,MLH1,MSH 2, MSH6,PMS2,EPCAM,APOB,L DLR,LDLRAP1,PCSK9 03/12/2022 12:00 AM RECORD PRESS OPERATOR CHARANJIT Genetic Disease Assessed Evaluation of 11 genes associated with Hereditary Breast and Ovarian Cancer, Eric Syndrome and Familial Hypercholesterolemia. 03/12/2022 12:00 AM [id number] Genetic Analysis Overall Interpretation Negative results through Tapestry do not replace diagnostic testing for patients with a personal or family history of cancer/hypercholestero lemia due to limitations with methodology. Consider a referral to a genetic counselor for diagnostic testing if warranted. 03/12/2022 12:00 AM RB-DoorsI Genetic Analysis Report See Tapestry PDF Report [...] enriched using a custom set of reagents (Munchkin+ chemistry). Targeted regions were sequenced using an Illumina DNA sequencing system. Your sequence was matched to a modified version of the pineola standard reference genome (GRCh38). Variant calling was completed using a customized version of [employer]'s VesselVanguard software, requiring 20x coverage for validated variant calls. Copy Number Variants (CNVs) were called using a proprietary bioinformatics pipeline that compared the coverage profile of your sample with the coverage profiles of other reference set samples. [facility] GeneUGAME then analyzed the generated variant data for the exons and 10 bp of flanking intronic sequence (and select tagged intronic variants) of the 11 genes included in Atlassian from the [employer] Database. Your sample was reviewed for single [...] assessments and medical management. 03/12/2022 12:00 AM RECORD PRESS OPERATOR CHARANJIT Human Reference Sequence Assembly GRCh38 03/12/2022 12:00 AM RECORD PRESS OPERATOR CHARANJIT Saliva (Mouth) 02/05/2022 Emeterio Friedman M.D. LAB GENETI C TESTING HELIX Tosk [address] [facility], [address] [place] [address], [facility] CHARANJIT HELIX [address] [facility], [address]. [place] [address] documented in this encounter Visit Diagnoses Diagnosis Genetic Susceptibility To Disease documented in this encounter
--- OUTSIDE RECORDS SUMMARY | 2023-07-04 05:22 | XMS_ITS | Encounter Summary ---
Author Name Unknown Organization [facility] Address [address] [place] [address] Care Team Providers Care Regulatory Affairs Associate Name Role Phone Unavailable Primary Care Provider Unavailabl e Reason for Referral * Outpatient (Routine) - Authorized Specialty Diagnoses / Procedures Referred By Martina t Referred To Contact Sleep Medicine Diagnoses Obstructive Sleep Apnea Adult Neisha Nolan APRN, C.N.Cheryl., M.S.N. [address] [place] [phone] [facility] [address] [place] [address] Phone: [phone] Referral ID Status Reason Start Date Expiration Date Visits Requested Visits Authorized [id number] Authorized Continuity of Care 05/02/2023 10/31/2024 1 1 CTOR OF EMPLOYEE DEVELOPMENT Encounter Details Date Type Department Care Team (Late st Contact Info) Description 05/02/2023 Orders Only Department of Cardiovascular Medicine in [place], [place] [address] [place] [phone] Neisha Nolan APRN C.N.P., M.S.N. [address] [place] [phone] Obstructive Sleep Apnea Adult (Primary Dx) Social History Tobacco Use Types Packs/Day Years Used Date Smoking Tobacco: Former Cigarettes 0.5 10 0 02/25/1994 - 02/26/2004 Smokeless Tobacco: Never Alcohol Use Standard Drinks/Week Comments Yes 2 (1 standard drink = 0.6 oz pur e alcohol) [facility] Utilities Answer Date Recorded In the [...] How often do you attend chur or yazdanism services? More than 4 times per year 11/22/2021 Do you belong to any clubs o r organizations such as yazidism groups, unions, fraternal or athletic groups, or [...] heating? Not hard at all 11/22/2021 [facility] of Occupat ional Health - Occupational Stress [...] Master's degree (e.g., MA, MS, Arti, MEd, JEWELRY DESIGNER, GALA) 11/22/2021 Sex and Gender Information Value [...]
--- OUTSIDE RECORDS SUMMARY | 2023-07-04 05:23 | XMS_ITS | Encounter Summary ---
Author Name Unknown Organization [facility] Address [address] [place] [address] Care Team Providers Care Watch Repair Technician Name Role Phone Unavailable Primary Care Provider Unavailabl e Reason for Referral * Outpatient (Routine) - Closed Specialty Diagnoses / Procedures Referred By Contac t Referred To Contact Diagnoses Failure Heart (HCC) Procedures ECG 12 Lead Neisha Nolan APRN, C.NCher, M.S.N. [address] [place] [phone] [facility] Referral ID Status Reason Start Date Expiration Date Visits Re quested Visits Authorized [id number] Closed 03/22/2023 03/21/2024 1 1 RSAW SUPERVISOR * Outpatient (Routine) - Closed Specialty Diagnoses / Procedures Referred By Contac t Referred To Contact Diagnoses Failure Heart (HCC) Procedures DX Chest AP or PA and Lateral 2 Views Neisha Nolan APRN, C.N.Rachana, M.S.N. [address] [place] [phone] [facility] Referral ID Status Reason Start Date Expiration Date Visits Re quested Visits Authorized [id number] Closed 03/22/2023 03/21/2024 1 1 RSAW SUPERVISOR Encounter Details Date Type Department Care Team (Latest Contact Info) Description 03/20/2023 Clinical Communication Department of Cardiovascular Medicine in [place], [place] [address] [place] [phone] Neisha Nolan APRN, C.N.P., M.S.N. [address] [place] [phone] Social History Tobacco Use Types Packs/Day Years Used Date Smoking Tobacco: Former Cigarettes 2004 Smokeless Tobacco: Never [facility] Utilities Answer Date Recorded In the [...] often do you attend chur ch or presybeterian services? More than 4 times per year 11/22/2021 Do you belong to any clubs o r organizations such as buddhism groups, unions, fraternal or athletic groups, or [...] and heating? Not hard at all 11/22/2021 [facility] of Occupat ional Health - Occupational Stress [...] Master's degree (e.g., MA, MS, Arti, MEd, MINE UTILITY OPERATOR, GALA) 11/22/2021 Sex and Gender Information [...] and Lateral 2 Views (04/04/2023 8:46 AM POWERSAW SUPERVISOR) Anatomical Region Laterality Modality Chest, Thoracic RST LOS, Tho racic ARZ LOS, Thoracic FLA LOS N/A Digital Radiography Impressions 04/04/2023 9:32 AM POWERSAW SUPERVISOR Patchy perihilar nodularity with mild hilar adenopathy. Findings are unchanged since 08/15/2021 and would be consistent with sarcoidosis. Heart size at upper limits of normal. Calcified and tortuous aorta. Abdominal surgical clips. Narrative 04/04/2023 9:32 AM POWERSAW SUPERVISOR EXAM: ??DX CHEST AP OR PA AND [...] * ECG 12 Lead (04/04/2023 8:26 AM POWERSAW SUPERVISOR) Ventricular Rate ECG/Min 77 BPM MUSE UT Interval 166 ms MUSE QRSD Interval 136 ms MUSE QT Interval 424 ms MUSE QTC Interval 479 ms MUSE P Hibbs 45 degrees MUSE R Hibbs -12 degrees MUSE T Wave Hibbs 126 degrees MUSE 04/04/2023 8:26 AM POWERSAW SUPERVISOR 04/04/2023 8:35 AM POWERSAW SUPERVISOR Impressions MUSE - 04/04/2023 8:35 AM POWERSAW SUPERVISOR Normal sinus rhythm Left bundle branch block [...] NA * Glucose, Fasting (04/04/2023 8:01 AM POWERSAW SUPERVISOR) Glucose, P 85 70 - 100 mg/dL 04/04/2023 8:59 AM POWERSAW SUPERVISOR DTL Last Intake 1 hr 04/04/2023 8:41 AM POWERSAW SUPERVISOR DTL Blood (Blood, Venous) 04/04/2023 8:01 AM POWERSAW SUPERVISOR 04/04/2023 8:41 AM POWERSAW SUPERVISOR Neisha Nolan APRN, C.N.P., M.S.N. LAB B LOOD NON ADD-ON [facility] [address] [place] [address], [facility] [place] DTL [facility] [address] [place] [address] * NT-Pro B-Type Natriuretic Peptide (BNP) (04/04/2023 8:00 AM POWERSAW SUPERVISOR) NT-Pro BNP 151 <=226 pg/mL 04/04/2023 9:16 AM POWERSAW SUPERVISOR DT Comment: NT-proBNP values less than 300 [...] failure. Blood (Blood, Venous) 04/04/2023 8:00 AM POWERSAW SUPERVISOR 04/04/2023 8:41 AM POWERSAW SUPERVISOR Neisha Nolan APRN, C.N.P., M.S.N. LAB B LOOD ADD-ON [facility] [address] 200 [place] [address] * (ABNORMAL) Potassium (04/04/2023 8:00 AM POWERSAW SUPERVISOR) Pathologist [facility] Potassium, S 3.4(L) 3.6 - 5.2 mmol/L 04/04/2023 9:16 AM POWERSAW SUPERVISOR DT Blood (Blood, Venous) 04/04/2023 8:00 AM POWERSAW SUPERVISOR 04/04/2023 8:41 AM POWERSAW SUPERVISOR Yas Schultz APRNNJae., M.S.N. LAB B LOOD ADD-ON [facility] [address] 200 [place] [address] * Bicarbonate (04/04/2023 8:00 AM POWERSAW SUPERVISOR) Pathologist [facility] Bicarbonate, S 29 22 - 29 mmol/L 04/04/2023 9:16 AM POWERSAW SUPERVISOR DT Blood (Blood, Venous) 04/04/2023 8:00 AM POWERSAW SUPERVISOR 04/04/2023 8:41 AM POWERSAW SUPERVISOR Neisha Nolan APRN, C.N.P., M.S.N. LAB B LOOD ADD-ON [facility] 200 [place] [address] * S-TSH (Thyroid-Stimulating Hormone - Sensitive) (04/04/2023 8:00 AM POWERSAW SUPERVISOR) Pathologist [facility] TSH, Sensitive 3.2 0.3 - 4.2 mIU/L 04/04/2023 9:16 AM POWERSAW SUPERVISOR DTL Blood (Blood, Venous) 04/04/2023 8:00 AM POWERSAW SUPERVISOR 04/04/2023 8:41 AM POWERSAW SUPERVISOR Neisha Nolan APRN, C.N.P., M.S.N. LAB B LOOD ADD-ON Performing Organization Address City/[facility]/ZIP Co de Phone Number [facility] 200 [place] [address] * (ABNORMAL) CBC with Differential, Blood (04/04/2023 8:00 AM POWERSAW SUPERVISOR) Pathologist [facility] Hemoglobin 12.3 11.6 - 15.0 g/dL 04/04/2023 8:36 AM POWERSAW SUPERVISOR DTL Hematocrit 38.3 35.5 - 44.9 % 04/04/2023 8:36 AM POWERSAW SUPERVISOR DTL Erythrocytes 4.58 3.92 - 5.13 x10(12)/L 04/04/2023 8:36 AM POWERSAW SUPERVISOR DTL MCV 83.6 78.2 - 97.9 fL 04/04/2023 8:36 AM POWERSAW SUPERVISOR DTL RBC Distrib Width 15.0 12.2 - 16.1 % 04/04/2023 8:36 AM POWERSAW SUPERVISOR DTL Platelet Count 240 157 - 371 x10(9)/L 04/04/2023 8:36 AM POWERSAW SUPERVISOR DTL Leukocytes 6.2 3.4 - 9.6 x10(9)/L 04/04/2023 8:36 AM POWERSAW SUPERVISOR DTL Neutrophils 4.79 1.56 - 6.45 x10(9)/L 04/04/2023 8:36 AM POWERSAW SUPERVISOR DHPM Lymphocytes 0.35(L) 0.95 - 3.07 x10(9)/L 04/04/2023 8:36 AM POWERSAW SUPERVISOR DTL Monocytes 0.77 0.26 - 0.81 x10(9)/L 04/04/2023 8:36 AM POWERSAW SUPERVISOR DTL Eosinophils 0.18 0.03 - 0.48 x10(9)/L 04/04/2023 8:36 AM POWERSAW SUPERVISOR DTL Basophils 0.06 0.01 - 0.08 x10(9)/L 04/04/2023 8:36 AM POWERSAW SUPERVISOR DTL Blood (Blood, Venous) 04/04/2023 8:00 AM POWERSAW SUPERVISOR 04/04/2023 8:27 AM POWERSAW SUPERVISOR Neisha Nolan APRN, C.N.P., M.S.N. LAB B LOOD ADD-ON [facility] 200 [place] [address], [facility] [place] DTL [facility] [address] [place], [place] [address] [place] [address] * (ABNORMAL) Lipid Panel (04/04/2023 8:00 AM POWERSAW SUPERVISOR) [facility] Triglycerides 144 mg/dL 04/04/2023 9:16 AM POWERSAW SUPERVISOR DTL Comment: ----REFERENCE VALUE---- Normal: <150 mg/dL Borderline High: 150-199 mg/dL High: 200-499 mg/dL Very High: > or =500 mg/dL Cholesterol, Total 180 mg/dL 2023 9:16 AM POWERSAW SUPERVISOR DTL Comment: ----REFERENCE VALUE---- Desirable: < 200 mg/dL Borderline High: 200 - 239 mg/dL High: > or = 240 mg/dL Cholesterol, LDL, Calculated 107 mg/dL 04/04/2023 9:16 AM POWERSAW SUPERVISOR DTL Comment: ----REFERENCE VALUE---- Desirable: <100 mg/dL Above Desirable: 100-129 mg/dL Borderline High: 130-159 mg/dL High: 160-189 mg/dL Very High: >=190 mg/dL ----ADDITIONAL INFORMATION---- LDL cholesterol calculated using the Gardner/NIH equation. Cholesterol, HDL, S 48(L) >=50 mg/dL 04/04/2023 9:16 AM POWERSAW SUPERVISOR DTL Cholesterol, Non-HDL, Calculated 132 mg/dL 04/04/2023 9:16 AM POWERSAW SUPERVISOR DTL Comment: ----REFERENCE VALUE---- Desirable: <130 mg/dL Above Desirable: 130-159 mg/dL Borderline High: 160-189 mg/dL High: 190-219 mg/dL Very High: > or =220 mg/dL Fasting (8 HR or more) No 04/04/2023 8:41 AM POWERSAW SUPERVISOR DTL Blood (Blood, Venous) 04/04/2023 8:00 AM POWERSAW SUPERVISOR 04/04/2023 8:41 AM POWERSAW SUPERVISOR Neisha Nolan APRN, C.N.P., M.S.N[place] [address], [facility] [address] * BUN (Blood Urea Nitrogen) (04/04/2023 8:00 AM POWERSAW SUPERVISOR) BUN (Blood Urea Nitrogen), S 12 6 - 21 mg/dL 04/04/2023 9:16 AM POWERSAW SUPERVISOR DTL Blood (Blood, Venous) 04/04/2023 8:00 AM POWERSAW SUPERVISOR 04/04/2023 8:41 AM POWERSAW SUPERVISOR Neisha Nolan APRN, C.N.P., M.S.N. LAB B LOOD ADD-ON [facility] 200 [place], [place] [address] [place] [address] [facility] 200 [place] [address] * AST (Aspartate Aminotransferase) (04/04/2023 8:00 AM POWERSAW SUPERVISOR) Aspartate Aminotransferase (AST), S 18 8 - 43 U/L 04/04/2023 9:16 AM POWERSAW SUPERVISOR DTL Blood (Blood, Venous) 04/04/2023 8:00 AM POWERSAW SUPERVISOR 04/04/2023 8:41 AM POWERSAW SUPERVISOR Neisha Nolan APRN, C.N.P., M.S.N. LAB B LOOD ADD-ON Performing Organization Address City/[facility] Co de Phone Number [facility] 200 [place], [place] [phone] [place] [address] [facility] 200 [place] [address] * Creatinine with Estimated GFR (04/04/2023 8:00 AM POWERSAW SUPERVISOR) Creatinine 0.95 0.59 - 1.04 mg/dL 04/04/2023 9:16 AM POWERSAW SUPERVISOR DTL Estimated GFR (eGFR) 69 >=60 mL/min/BSA 04/04/2023 9:16 AM POWERSAW SUPERVISOR DTL Comment: Estimated GFR calculated using the 2020 CKD_EPI creatinine equation. Blood (Blood, Venous) 04/04/2023 8:00 AM POWERSAW SUPERVISOR 04/04/2023 8:41 AM POWERSAW SUPERVISOR Yas Schultz APRNNJae., M.S.N. LAB B LOOD ADD-ON Performing Organization Address City/[facility]/ZIP Co de Phone Number [facility] [address] [facility] 200 [place] [address] * Sodium (04/04/2023 8:00 AM POWERSAW SUPERVISOR) Sodium, S 145 135 - 145 mmol/L 04/04/2023 9:16 AM POWERSAW SUPERVISOR DTL Blood (Blood, Venous) 04/04/2023 8:00 AM POWERSAW SUPERVISOR 04/04/2023 8:41 AM POWERSAW SUPERVISOR Neisha Nolan APRN C.NSandieP., M.S.N. LAB B LOOD ADD-ON [facility] [address] [place] [address], [facility] [place] [address] [place] [address] documented in this encounter Visit Diagnoses Diagnosis Failure Heart (HCC)- Primary Failure Heart (HCC) documented in this encounter
--- OUTSIDE RECORDS SUMMARY | 2023-07-04 05:23 | XMS_ITS | Encounter Summary ---
Author Name Unknown Organization [facility] Address [address] [place] [address] Care Team Providers Care Windows Desktop Support Name Role Phone Unavailable Primary Care Provider Unavailabl e Encounter Details Date Type Department Care Team (Latest Contact Info) Description 03/15/2023 Clinical Communication Department of Cardiovascular Medicine in [place], [place] [address] [place] [phone] Neisha Nolan, JESSIKA, C.N.P., M.S.N. [address] [place] [phone] Social History Tobacco Use Types Packs/Day Years Used Date Smoking Tobacco: Former Cigarettes 2004 Smokeless Tobacco: Never [facility] Gustities Answer Date Recorded In the past 12 months has [facility] electric, gas, oil, or water [employer] threatened to shut off services in your [...] often do you attend chur ch or temple services? More than 4 times [...] and heating? Not hard at all 11/22/2021 [facility] of Occupat ional Health - [...] your living situation today? I have a [facility] place to live 03/30/2023 Education Answer Date Recorded What is the highest level of school you have completed or the highest degree you have received? Master's degree (e.g., MA, MS, Arti, MEd, WEAPONS AND TACTICS INSTRUCTOR, [employer]) 11/22/2021 Sex and Gender Information Value [...] to repeat on 04/04? Thank you Dorcas.S R AND GRINDER TENDER * Telephone Encounter - Dorcas Stein - 03/15/2023 8:26 AM CST Laureen Nolan, Scheduled to see you on 04/04 .Pt had a PET scan at [facility] on 03/05 . Please let us know what other testing is needed. Pt wants to transfer her care to [place]. Thank you Dorcas.Girish R AND GRINDER TENDER documented in this encounter Plan of Treatment Not on file documented as of this encounter Visit Diagnoses Not on filedocumented in this encounter
--- OUTSIDE RECORDS SUMMARY | 2023-07-04 05:23 | XMS_ITS | Clinical Summary ---
Author Name Unknown Organization [facility] Address [place], [place] [address] Care Team Providers Care Buyer Renter Name Role Phone Timoteo Beavers MD Primary Care Provider [phone] Allergies Active Allergy Reactions Criticality Noted Date Comments Sulfa (Sulfonamide Antibiotics) Nausea And Vomiting 01/30/2021 Medications Medication Sig Dispensed Refills Start Date End Date Status clobetasol 0.05% (TEMOVATE 0.05% OINTMENT) 0.05 % ointment Apply topically to affected area(s) 2 times daily. 0 1 06/17/19 24 Discontinued(* Med complete/Regim en complete/Level of care change) ProAir HFA 90 mcg/actuation inhaler 1 06/30/19 24 Discontinued(P harmacist change per medication history (E-cancel not sent)) nortriptyline (PAMELOR) 10 mg capsuleIndication s:Anxiety Take 2 Capsules (20 mg) by mouth at bedtime. 180 Capsule 3 3 06/17/19 24 Discontinued(R eorder (E-cancel not sent)) QUEtiapine (Seroquel XR) 50 mg Tb24 Extended-Release tabletIndications :Anxiety Take 1 Tablet (50 mg) by mouth once daily. 90 Tablet 3 3 06/17/19 24 Discontinued(* Med complete/Regim en complete/Level of care change) omeprazole 20 mg tabletIndications :Gastric reflux Take 1 Tablet (20 mg) by mouth once daily before a meal. 90 Tablet 3 3 06/30/19 24 Discontinued(P harmacist change per medication history (E-cancel not sent)) metroNIDAZOLE 0.75 % creamIndications: Rosacea Apply topically to affected area on face once-twice daily. 45 g 2 3 06/05/19 24 Discontinued(R eorder (E-cancel not sent)) tiZANidine (ZANAFLEX) 4 mg tabletIndications :Back pain with right-sided sciatica Take 1 Tablet (4 mg) by mouth every 6 hours if needed for Muscle Spasm. 10 Tablet 3 06/17/19 24 Discontinued(* Med complete/Regim en complete/Level of care change) cyclobenzaprine (FLEXERIL) 10 mg tabletIndications :Back pain with right-sided sciatica,Low back pain, unspecified back pain laterality, unspecified chronicity, unspecified whether sciatica present Take 1 Tablet (10 mg) by mouth 2 times daily if needed for Muscle Spasm. 30 Tablet 3 06/17/19 24 Discontinued(* Med complete/Regim en complete/Level of care change) celecoxib (CELEBREX) 200 mg capsuleIndication s:Back pain with right-sided sciatica,Low back pain, unspecified back pain laterality, unspecified chronicity, unspecified whether sciatica present Take 1 Capsule (200 mg) by mouth once daily with a meal. 30 Capsule 3 06/17/19 24 Discontinued(* Med complete/Regim en complete/Level of care change) QUEtiapine (SEROQUEL) 25 mg tabletIndications :Anxiety Take 1 Tablet (25 mg) by mouth at bedtime. 90 Tablet 3 3 06/17/19 24 Discontinued(R eorder (E-cancel not sent)) predniSONE (DELTASONE) 20 mg tablet 3 06/30/19 24 Discontinued(P harmacist change per medication history (E-cancel not sent)) mycophenolate (CellCept) 500 mg tabletIndications :Cardiac sarcoidosis Take 2 Tablets (1,000 mg) by mouth every 12 hours. Take with 500 mg to equal 1500 mg 360 Tablet 3 4 06/17/19 24 Discontinued(* Med complete/Regim en complete/Level of care change) mycophenolate (CellCept) 250 mg capsuleIndication s:Cardiac sarcoidosis Take 2 Capsules (500 mg) by mouth every 12 hours. Take with 1000 mg to equal 1500 mg 360 Capsule 3 4 06/17/19 24 Discontinued(* Med complete/Regim en complete/Level of care change) mometasone-formot alejandra (Dulera) 200-5 mcg/actuation inhalerIndication s:Sarcoidosis USE 2 INHALATIONS TWICE A DAY 39 g 2 4 Suspended Additional Information metroNIDAZOLE 0.75 % creamIndications: Rosacea Apply topically to affected area on face once-twice daily. 45 g 2 4 Suspended Additional Information methotrexate sodium (METHOTREXATE, ANTI-RHEUMATIC, ORAL) Take by mouth. 06/30/19 24 Discontinued(P harmacist change per medication history (E-cancel not sent)) nortriptyline (PAMELOR) 10 mg capsuleIndication s:Anxiety Take 2 Capsules (20 mg) by mouth at bedtime. 200 Capsule 3 4 Suspended Additional Information QUEtiapine (SEROQUEL) 25 mg tabletIndications :Anxiety Take 1 Tablet (25 mg) by mouth at bedtime. 100 Tablet 3 4 Suspended Additional Information methotrexate sodium/PF (methotrexate, preservative free,) 25 mg/mL soln Inject As Directed once weekly. 0.4 ml (10mg) SC Q week x 14 days, 0.6 ml (15mg) SC Q week x 14 days, then 0.8 ml (20 mg) q week Suspended omeprazole (PRILOSEC) 20 mg Delayed-Release capsule Take 20 mg by mouth once daily. While on prednisone Suspended predniSONE (DELTASONE) 5 mg tablet Take 2.5-30 mg by mouth once daily. 30 mg daily x 28 days, 25 mg daily x 28 days, 20 mg daily x 28 days, 15 mg daily x 28 days, 10 mg daily x 14 days, 7.5 mg daily x 14 days, 5 mg daily x 14 days, 2.5 mg daily x 14 days Suspended atovaquone (MEPRON) 750 mg/5 mL suspension Take 750 mg by mouth two times daily. For PCP prophylaxis while on prednisone doses of > 15 mg per day Suspended folic acid 1 mg tablet Take 1 mg by mouth once daily. Suspended calcium carbonate (Calcium 500) 500 mg calcium (1,250 mg) chewable tablet Chew 1,250 mg by mouth once daily. Suspended cholecalciferol (Vitamin D-3) 400 unit tablet Take 800 units by mouth once daily. Suspended Active Problems Problem Noted Date Diagnosed Date Cardiac arrest 06/29/2023 Complete heart block 06/29/2023 Hypokalemia 06/29/2023 Abnormal LFTs 06/29/2023 Leukocytosis 06/29/2023 Paroxysmal SVT (supraventricular tachycardia) Sarcoidosis 11/21/2021 Lung interstitial disease 11/21/2021 Pap smear for cervical cancer screening 04/26/19 Overview: 04/2021 NIL/HPV negative. Plan: Pap/HPV due 04/2026 Ventricular trigeminy Mitral valve regurgitation Depression Anxiety Resolved Problems Problem Noted Date Diagnosed Date Resolved Date Supraventricular tachycardia 05/28/2022 06/17/2023 Encounters Date Type Department Care Team Description 07/03/2023 Travel 06/30/2023 Travel 06/29/2023 9:12 PM CDT - Present Hospital Encounter [facility] [address] [place] [address] Kristina Whittaker MBBS s, U Hospitalist c Garrett, DO Polo Winters John Edward, MD S[facility], Darryl Reddy MD Mitral valve insufficiency, unspecified etiology (Primary Dx) 06/17/2023 1:55 PM CDT Office Visit [facility] [address] [place] [address] Timoteo Beavers MD Physical (referrals from [facility] discussion); Establish Care (/) 06/17/2023 Orders Only [facility] [address] [place] [address] Timoteo Beavers MD Outside Order (Ordered by Rajat Pizarro) 06/17/2023 Travel 06/05/2023 8:30 AM CDT Office Visit [facility] [address] [address] Charisse Cabrera MD Derm Problem (fbse) 06/05/2023 Travel 04/30/2023 7:00 AM SWEEPING COMPOUND BLENDER - 04/30/2023 11:59 PM SWEEPING COMPOUND BLENDER Hospital Encounter [facility] [address] [place] [address] Derrick Bower MD Froemming, Gina L IT SECURITY ENGINEER 04/30/2023 Travel 04/16/2023 7:00 AM SWEEPING COMPOUND BLENDER - 04/16/2023 11:59 PM SWEEPING COMPOUND BLENDER Hospital Encounter [facility] [place] [address] [place] [address] Derrick Bower MD Froemming, Gina L, IT SECURITY ENGINEER Supraventricular tachycardia (Primary Dx); Lung interstitial disease (HC); Sarcoidosis; Pap smear for cervical cancer screening; Anxiety; Mitral valve insufficiency, unspecified etiology; Ventricular trigeminy; Dysphonia; Vocal cord dysfunction 04/16/2023 Travel from Last 3 Months Immunizations Name Administration Dates Next Due COVID-19 Vaccine Spikevax (M oderna 50mcg/0.5mL) 12YO+ [id number] Formula PF 06/17/2023,12/25/2022 Influenza, IIV4 12/25/2022,12/31/2021,04/21/2020 Pneumococcal [...] file Travel History Travel Start Travel End [place] 05/17/2023 06/17/2023 Obstetrics History Last Filed Vital Signs Vital Sign Reading Time Taken Comments Blood Pressure 132/76 07/04/2023 1:00 AM CDT Pulse 63 07/04/2023 1:00 AM CDT Temperature 36.9 ??C (98.4 ??F) 07/04/2023 12:00 AM C DT Respiratory Rate 19 07/04/2023 12:00 AM CDT Oxygen Saturation 94% 07/04/2023 1:00 AM CDT Inhaled Oxygen Concentration - - Weight 104.3 kg (229 lb 15 oz) 07/03/2023 4:00 A M CDT Height 172 cm (5' 7.72) 06/29/2023 11:00 PM CDT Body Mass Index 35.26 06/29/2023 11:00 PM CDT Plan of Treatment Upcoming Encounters Date Type Department Care Team (Late st Contact Info) Description 07/12/2023 2:00 PM CDT Procedure Only [facility] [address] [facility] [address] [place] [address] 06/16/2024 8:30 AM CDT Office Visit [facility] [address] [facility] [address] [place] [address] Charisse Cabrera MD [address] [facility] [address] [place] [address] Health Maintenance Due Date Last Done Comments HIV for age 15-65 1978 Mammogram for age 45-75 06/19/2023 06/19/19 23, 08/10/2020 (Completed outside of [facility]) COVID-19 vaccine series (8 - 2022-24 season) [...] through age 75 10/26/202410/26 (Completed outside of [facility]) Pap test for age 21-65 05/22/2026 05/22/2021, 2021 Lipids for age 45-75 05/29/2027 05/28/2022, 05/23/19 Tetanus booster 08/15/2032 08/15/2022, 09/02/2013 Hepatitis C screening for ag e 18-79 Completed 05/22/2021 Tdap Completed 08/15/2022, 09/02/2013 Pneumococcal series for age 6-64 Completed 02/28/19 24 Procedures The patient is currently admitted. The information in this section might not be complete until the patient is discharged. Procedure Name Priority Date/Time Associated Diagnosis Comments CT SPINE CERVICAL WO STAT 07/03/2023 10:[address] HEAD BRAIN WO STAT 07/03/2023 10:2 5 PM CDT SCAN-CARDIAC STRIP 07/03/2023 7: 14 PM CDT SCAN-CARDIAC STRIP 07/03/2023 3: 18 PM CDT XR CHEST 1 VIEW PORTABLE ITZEL 07/03/2023 2:15 PM CDT POTASSIUM Timed 07/03/2023 1:33 PM CDT EKG 12 LEAD Preop 07/03/2023 10:03 AM CDT SCAN CORRESP-EKG RESULTS 07/03/2023 8:48 AM CDT SCAN-CARDIAC STRIP 07/03/2023 7: 45 AM CDT GLUCOSE METER Timed 07/03/2023 7:42 AM CDT POTASSIUM Early AM 07/03/2023 5:03 AM CDT CBC W PLT NO DIFF Early AM 07/03/2023 5:0 3 AM CDT MAGNESIUM Timed 07/03/2023 5:03 AM CDT GLUCOSE METER Timed 07/03/2023 4:25 AM CDT MAGNESIUM Timed 07/03/2023 1:27 AM CDT SCAN-CARDIAC STRIP 07/03/2023 1: 00 AM CDT GLUCOSE METER Timed 07/03/2023 12:08 AM CDT SCAN-CARDIAC STRIP 07/03/2023 12 :00 AM CDT SCAN-CARDIAC STRIP 07/03/2023 12 :00 AM CDT GLUCOSE METER Timed 07/02/2023 8:12 PM CDT MAGNESIUM Timed 07/02/2023 5:57 PM CDT GLUCOSE METER Timed 07/02/2023 4:13 PM CDT SCAN-CARDIAC STRIP 07/02/2023 4: 07 PM CDT MAGNESIUM Timed 07/02/2023 1:18 PM CDT GLUCOSE METER Timed 07/02/2023 12:21 PM CDT MRSA/SA PCR Today 07/02/2023 10:07 AM CDT CBC W PLT NO DIFF ITZEL 07/02/2023 10: 07 AM CDT POTASSIUM Timed 07/02/2023 10:07 AM CDT SPUTUM CULTURE, STAIN Today 07/02/2023 9:37 AM CDT XR CHEST 1 VIEW PORTABLE ITZEL 07/02/2023 8:47 AM CDT URINALYSIS MICROSCOPIC Timed 8:43 AM CDT UA W/ SEDIMENT EXAM REFLEXED PER CRITERIA Today 07/02/2023 8:43 AM CDT GLUCOSE METER Timed 07/02/2023 7:49 AM CDT SCAN-CARDIAC STRIP 07/02/2023 7: 15 AM CDT MAGNESIUM Timed 07/02/2023 5:04 AM CDT BASIC METABOLIC PANEL Early AM 07/02/2023 5:04 AM CDT CK TOTAL Timed 07/02/2023 5:04 AM CDT TRIGLYCERIDES Timed 07/02/2023 5:04 AM CDT GLUCOSE METER Timed 07/02/2023 5:01 AM CDT MAGNESIUM Timed 07/02/2023 12:20 AM CDT GLUCOSE METER Timed 07/02/2023 12:00 AM CDT BLOOD CULTURE Today 07/01/2023 10:32 PM CDT BLOOD CULTURE Today 07/01/2023 10:31 PM CDT GLUCOSE METER Timed 07/01/2023 8:50 PM CDT SCAN-CARDIAC STRIP 07/01/2023 8: 11 PM CDT MAGNESIUM Timed 07/01/2023 6:33 PM CDT GLUCOSE METER Timed 07/01/2023 3:59 PM CDT SCAN-CARDIAC STRIP 07/01/2023 2: 37 PM CDT EKG 12 LEAD ITZEL 07/01/2023 2:31 PM CDT GLUCOSE METER Timed 07/01/2023 11:32 AM CDT CBC W PLT NO DIFF ITZEL 07/01/2023 10: 09 AM CDT POTASSIUM Timed 07/01/2023 10:09 AM CDT MAGNESIUM Timed 07/01/2023 10:09 AM CDT EKG 12 LEAD Routine 07/01/2023 8:09 AM CDT GLUCOSE METER Timed 07/01/2023 7:47 AM CDT SCAN-CARDIAC STRIP 07/01/2023 7: 42 AM CDT PROCALCITONIN Today 07/01/2023 6:58 AM CDT BASIC METABOLIC PANEL ITZEL 07/01/2023 4:43 AM CDT HEPATIC FUNCTION PANEL ITZEL 4:43 AM CDT GLUCOSE METER Timed 07/01/2023 4:43 AM CDT POTASSIUM Timed 07/01/2023 4:43 AM CDT MAGNESIUM Timed 07/01/2023 4:43 AM CDT GLUCOSE METER Timed 07/01/2023 12:42 AM CDT MAGNESIUM Timed 06/30/2023 10:25 PM CDT SCAN-CARDIAC STRIP 06/30/2023 8: 12 PM CDT GLUCOSE METER Timed 06/30/2023 7:55 PM CDT GLUCOSE METER Timed 06/30/2023 3:58 PM CDT MAGNESIUM Timed 06/30/2023 3:[address] HEAD BRAIN WO Routine 06/30/2023 3:14 PM CDT AMMONIA Today 06/30/2023 1:40 PM CDT EKG 12 LEAD Early AM 06/30/2023 12:16 PM CDT GLUCOSE METER Timed 06/30/2023 12:00 PM CDT ECHO TTE COMPLETE W CONTRAST Today 06/30/2023 9:12 AM CDT MAGNESIUM ITZEL 06/30/2023 9:09 AM CDT POTASSIUM Timed 06/30/2023 9:09 AM CDT SCAN-CARDIAC STRIP 06/30/2023 8: 00 AM CDT GLUCOSE METER Timed 06/30/2023 7:45 AM CDT GLUCOSE METER Timed 06/30/2023 4:09 AM CDT CWS PATH REVIEW HEMATOLOGY Timed 06/30/2023 4:06 AM CDT RED CELL MORPHOLOGY Timed 06/30/2023 4 :06 AM CDT PLATELET ESTIMATE Timed 06/30/2023 4:0 6 AM CDT MANUAL DIFFERENTIAL Timed 06/30/2023 4 :06 AM CDT MAGNESIUM ITZEL 06/30/2023 4:06 AM CDT CBC WITH AUTO DIFFERENTIAL Early AM 06/30/2023 4:06 AM CDT POTASSIUM Timed 06/30/2023 4:06 AM CDT COMP METABOLIC PANEL Early AM 06/30/2023 4:06 AM CDT CBC WITH AUTO DIFFERENTIAL Early AM 06/30/2023 4:06 AM CDT CK TOTAL Timed 06/30/2023 4:06 AM CDT TRIGLYCERIDES Timed 06/30/2023 4:06 AM CDT SCAN-CARDIAC STRIP 06/30/2023 3: 08 AM CDT GLUCOSE METER Timed 06/30/2023 1:47 AM CDT SCAN-CARDIAC STRIP 06/30/2023 12 :28 AM CDT ARTERIAL BLOOD GAS Timed 06/30/2023 12 :09 AM CDT XR ABDOMEN 1 VIEW PORTABLE STAT 06/29/2023 11:09 PM CDT XR CHEST 1 VIEW PORTABLE ITZEL 06/29/2023 11:08 PM CDT GLUCOSE METER Timed 06/29/2023 10:50 PM CDT ISTAT EG6+ ABG Today 06/29/2023 9:46 PM CDT ISTAT EG6+ ABG Timed 06/29/2023 9:22 PM CDT HCHG ACTIVATED CLOTTING TM CV Timed 06/29/2023 9:21 PM CDT CVL CORONARY ANGIOGRAM POSS PCI Routine 06/29/2023 9:12 PM CDT MAGNESIUM ITZEL 06/29/2023 9:00 PM CDT HEPATIC FUNCTION PANEL ITZEL 9:00 PM CDT TSH ITZEL 06/29/2023 9:00 PM CDT EXTRA TUBE GOLD/SST Today 06/29/2023 9 :00 PM CDT PROTIME-INR STAT 06/29/2023 9:00 PM CDT CBC W PLT NO DIFF ITZEL 06/29/2023 9:0 0 PM CDT BASIC METABOLIC PANEL STAT 06/29/2023 9:00 PM CDT TROPONIN T (HS) ONE TIME STAT 06/29/2023 9:00 PM CDT SCAN-CARDIAC STRIP 06/29/2023 12 :00 AM CDT XR MAMMO GHAZALA BILAT SCREEN Routine 06/18/2022 [...] Recently Relevant to Health Maintenance Results * CT SPINE CERVICAL WO (07/03/2023 10:25 PM CDT) Anatomical Region Laterality Modality CERVICAL SPINE, NECK, Spine Comp uted Tomography 07/03/2023 10:2 5 PM CDT Impressions 07/03/2023 11:[address]: 1. ??No CT finding of a mass, hemorrhage area suggestive of acute infarct. CERVICAL SPINE CT: 1. ??No CT evidence for acute fracture or post traumatic subluxation. 2. ??No significant canal compromise or neural foraminal narrowing throughout cervical spine. Narrative 07/03/2023 11:00 PM CDT For Patients: As a result of the Cures Act, medical imaging exams and procedure reports are released immediately into your electronic medical record. You may view this report before your referring provider. If you have questions, please contact your health care provider. EXAM: CT HEAD BRAIN WO, CT SPINE CERVICAL WO LOCATION: [facility] DATE: 07/03/2023 INDICATION: Head trauma, skull fracture or hematoma (Age 18-64y) altered mental status and neck pain. COMPARISON: 06/30/2023. TECHNIQUE: 1) Routine CT Head without IV contrast. Multiplanar reformats. Dose reduction techniques were used. 2) Routine CT Cervical Spine without IV contrast. Multiplanar reformats. Dose reduction techniques were used. FINDINGS: HEAD CT: INTRACRANIAL CONTENTS: No intracranial hemorrhage, extraaxial collection, or mass effect. ??No CT evidence of acute infarct. Normal parenchymal attenuation. Normal ventricles and sulci. VISUALIZED ORBITS/SINUSES/MASTOIDS: No intraorbital abnormality. Postsurgical changes noted involving sinuses. Minimal mucosal thickening maxillary sinuses and ethmoid air cells. No middle ear or mastoid effusion. BONES/SOFT TISSUES: No acute abnormality. CERVICAL SPINE CT: VERTEBRA: Normal vertebral body heights and alignment. No fracture or posttraumatic subluxation. CANAL/FORAMINA: The vertebral body heights and disc space height are well- maintained throughout. There is mild left-sided facet arthropathy visualized. There is no significant canal compromise or neural foraminal visualized throughout the cervical spine. PARASPINAL: No extraspinal abnormality. There is interstitial disease right lung apex recommend clinical correlation. Procedure Note Tanya Matias MD - 07/03/2023 For Patients: As a result of the Cures Act, medical imagingexams and procedure reports are released immediately into your electronicmedical record. You may view this report before your referring provider.If you have questions, please contact your health care provider. EXAM: CT HEAD BRAIN WO, CT SPINE CERVICAL WO LOCATION: [facility] DATE: 07/03/2023 INDICATION: Head trauma, skull fracture or hematoma (Age 18-64y) alteredmental status and neck pain. COMPARISON: 06/30/2023. TECHNIQUE: 1) Routine CT Head without IV contrast. Multiplanar reformats. Dosereduction techniques were used. 2) Routine CT Cervical Spine without IV contrast. Multiplanar reformats.Dose reduction techniques were used. FINDINGS: HEAD CT: INTRACRANIAL CONTENTS: No intracranial hemorrhage, extraaxial collection,or mass effect. No CT evidence of acute infarct. Normal parenchymalattenuation. Normal ventricles and sulci. VISUALIZED ORBITS/SINUSES/MASTOIDS: No intraorbital abnormality.Postsurgical changes noted involving sinuses. Minimal mucosal thickeningmaxillary sinuses and ethmoid air cells. No middle ear or mastoideffusion. BONES/SOFT TISSUES: No acute abnormality. CERVICAL SPINE CT: VERTEBRA: Normal vertebral body heights and alignment. No fracture orposttraumatic subluxation. CANAL/FORAMINA: The vertebral body heights and disc space height arewell- maintained throughout. There is mild left-sided facet arthropathyvisualized. There is no significant canal compromise or neural foraminalvisualized throughout the cervical spine. PARASPINAL: No extraspinal abnormality. There is interstitial diseaseright lung apex recommend clinical correlation. IMPRESSION: HEAD CT: 1. No CT finding of a mass, hemorrhage area suggestive of acuteinfarct. CERVICAL SPINE CT: 1. No CT evidence for acute fracture or post traumatic subluxation. 2. No significant canal compromise or neural foraminal narrowingthroughout cervical spine. Iker Maldonado NP CT * CT HEAD BRAIN WO (07/03/2023 10:25 PM CDT) Only the most recent of2 resultswithin the time period is included. Anatomical Region Laterality Modality HEAD, BRAIN Computed Tomogra phy 07/03/2023 10:2 5 PM CDT Impressions 07/03/2023 11:[address]: 1. ??No CT finding of a mass, hemorrhage area suggestive of acute infarct. CERVICAL SPINE CT: 1. ??No CT evidence for acute fracture or post traumatic subluxation. 2. ??No significant canal compromise or neural foraminal narrowing throughout cervical spine. Narrative 07/03/2023 11:00 PM CDT For Patients: As a result of the Cures Act, medical imaging exams and procedure reports are released immediately into your electronic medical record. You may view this report before your referring provider. If you have questions, please contact your health care provider. EXAM: CT HEAD BRAIN WO, CT SPINE CERVICAL WO LOCATION: [facility] DATE: 07/03/2023 INDICATION: Head trauma, skull fracture or hematoma (Age 18-64y) altered mental status and neck pain. COMPARISON: 06/30/2023. TECHNIQUE: 1) Routine CT Head without IV contrast. Multiplanar reformats. Dose reduction techniques were used. 2) Routine CT Cervical Spine without IV contrast. Multiplanar reformats. Dose reduction techniques were used. FINDINGS: HEAD CT: INTRACRANIAL CONTENTS: No intracranial hemorrhage, extraaxial collection, or mass effect. ??No CT evidence of acute infarct. Normal parenchymal attenuation. Normal ventricles and sulci. VISUALIZED ORBITS/SINUSES/MASTOIDS: No intraorbital abnormality. Postsurgical changes noted involving sinuses. Minimal mucosal thickening maxillary sinuses and ethmoid air cells. No middle ear or mastoid effusion. BONES/SOFT TISSUES: No acute abnormality. CERVICAL SPINE CT: VERTEBRA: Normal vertebral body heights and alignment. No fracture or posttraumatic subluxation. CANAL/FORAMINA: The vertebral body heights and disc space height are well- maintained throughout. There is mild left-sided facet arthropathy visualized. There is no significant canal compromise or neural foraminal visualized throughout the cervical spine. PARASPINAL: No extraspinal abnormality. There is interstitial disease right lung apex recommend clinical correlation. Procedure Note Tanya Matias MD - 07/03/2023 For Patients: As a result of the Cures Act, medical imagingexams and procedure reports are released immediately into your electronicmedical record. You may view this report before your referring provider.If you have questions, please contact your health care provider. EXAM: CT HEAD BRAIN WO, CT SPINE CERVICAL WO LOCATION: [facility] DATE: 07/03/2023 INDICATION: Head trauma, skull fracture or hematoma (Age 18-64y) alteredmental status and neck pain. COMPARISON: 06/30/2023. TECHNIQUE: 1) Routine CT Head without IV contrast. Multiplanar reformats. Dosereduction techniques were used. 2) Routine CT Cervical Spine without IV contrast. Multiplanar reformats.Dose reduction techniques were used. FINDINGS: HEAD CT: INTRACRANIAL CONTENTS: No intracranial hemorrhage, extraaxial collection,or mass effect. No CT evidence of acute infarct. Normal parenchymalattenuation. Normal ventricles and sulci. VISUALIZED ORBITS/SINUSES/MASTOIDS: No intraorbital abnormality.Postsurgical changes noted involving sinuses. Minimal mucosal thickeningmaxillary sinuses and ethmoid air cells. No middle ear or mastoideffusion. BONES/SOFT TISSUES: No acute abnormality. CERVICAL SPINE CT: VERTEBRA: Normal vertebral body heights and alignment. No fracture orposttraumatic subluxation. CANAL/FORAMINA: The vertebral body heights and disc space height arewell- maintained throughout. There is mild left-sided facet arthropathyvisualized. There is no significant canal compromise or neural foraminalvisualized throughout the cervical spine. PARASPINAL: No extraspinal abnormality. There is interstitial diseaseright lung apex recommend clinical correlation. IMPRESSION: HEAD CT: 1. No CT finding of a mass, hemorrhage area suggestive of acuteinfarct. CERVICAL SPINE CT: 1. No CT evidence for acute fracture or post traumatic subluxation. 2. No significant canal compromise or neural foraminal narrowingthroughout cervical spine. Iker Maldonado NP CT * SCAN-CARDIAC STRIP (07/03/2023 7:14 PM CDT) Scanner OTHER * SCAN-CARDIAC STRIP (07/03/2023 3:18 PM CDT) Scanner OTHER * XR CHEST 1 VIEW PORTABLE (07/03/2023 2:15 PM CDT) Only the most recent of3 resultswithin the time period is included. Anatomical Region Laterality Modality HEART, THORAX, CHEST Computed Ra diography 07/03/2023 2:15 PM CDT Impressions 07/03/2023 2:17 PM CDT Heart is mildly enlarged, unchanged. Slight interstitial edema. No effusion. Narrative 07/03/2023 2:17 PM CDT For Patients: As a result of the Cures Act, medical imaging exams and procedure reports are released immediately into your electronic medical record. You may view this report before your referring provider. If you have questions, please contact your health care provider. EXAM: XR CHEST 1 VIEW PORTABLE LOCATION: [facility] DATE: 07/03/2023 INDICATION: Eval Lung Infiltrate COMPARISON: 07/02/2023 Procedure Note Octavio White MD - 07/03/2023 For Patients: As a result of the Cures Act, medical imagingexams and procedure reports are released immediately into your electronicmedical record. You may view this report before your referring provider.If you have questions, please contact your health care provider. EXAM: XR CHEST 1 VIEW PORTABLE [facility] [facility] DATE: 07/03/2023 INDICATION: Eval Lung Infiltrate COMPARISON: 07/02/2023 IMPRESSION: Heart is mildly enlarged, unchanged. Slight interstitial edema. Noeffusion. Mono Velasco DO GENERAL IMAGING * POTASSIUM (07/03/2023 1:33 PM CDT) Only the most recent of7 resultswithin the time period is included. POTASSIUM 4.6 3.5 - 5.1 mmol/L 07/03/2023 1:52 PM CDT [facility] Blood BLOOD SPECIMEN / Unknown Venipuncture / Unknown 07/03/2023 1:33 PM CDT 07/03/2023 1:37 PM CDT Anh Kendrick DO CHEMISTRY [facility] SENDOUT INTERNAL ZIP [phone] [place] [address] * 12 Lead EKG (07/03/2023 10:03 AM CDT) Only the most recent of4 resultswithin the time period is included. Interpretation Sinus bradycardia with Premature atrial complexes Left bundle branch block Abnormal ECG BEYOND NOW Ventricular Rate 58 BPM BEYOND NOW Atrial Rate 58 BPM BEYOND NOW P-R Interval 166 ms BEYOND NOW QRS Duration 138 ms BEYOND NOW QT 460 ms BEYOND NOW QTc 451 ms BEYOND NOW P Wheeler 40 degrees BEYOND NOW R Wheeler 72 degrees BEYOND NOW T Wheeler -70 degrees BEYOND NOW 07/03/2023 10:0 3 AM CDT 07/03/2023 2:44 PM CDT Karri Melendez [employer] EKG ORD BEYOND NOW [place], [place] * SCAN CORRESP-EKG RESULTS (07/03/2023 8:48 AM CDT) Narrative 07/03/2023 8:48 AM CDT Ordered by an unspecified provider. Other Clinical Staff OTHER * SCAN-CARDIAC STRIP (07/03/2023 7:45 AM CDT) Scanner OTHER * (ABNORMAL) GLUCOSE METER (07/03/2023 7:42 AM CDT) Only the most recent of22 resultswithin the time period is included. GLUCOSE METER 102(H) 65 - 100 mg/dL 07/03/2023 7:43 AM CDT [facility] Blood BLOOD SPECIMEN / Unknown 07/03/2023 7:42 AM CDT 07/03/2023 7:43 AM CDT Darryl Piper MD CHEMISTRY [facility] SENDOUT INTERNAL ZIP [id number] [place] [id number] * (ABNORMAL) CBC W PLT NO DIFF (07/03/2023 5:03 AM CDT) Only the most recent of4 resultswithin the time period is included. WHITE BLOOD COUNT 9.7 4.5 - 11.0 thou/cu mm 07/03/2023 5:44 AM CDT [facility] RED BLOOD COUNT 4.06 4.00 - 5.20 mil/cu mm 07/03/2023 5:44 AM CDT [facility] HEMOGLOBIN 10.6(L) 12.0 - 16.0 g/dL 07/03/2023 5:44 AM CDT [facility] HEMATOCRIT 33.4 33.0 - 51.0 % 07/03/2023 5:44 AM CDT [facility] MCV 82 80 - 100 fL 07/03/2023 5:44 AM CDT [facility] MCH 26.1 26.0 - 34.0 pg 07/03/2023 5:44 AM CDT [facility] MCHC 31.7(L) 32.0 - 36.0 g/dL 07/03/2023 5:44 AM CDT [facility] RDW 14.8 11.5 - 15.5 % 07/03/2023 5:44 AM CDT [facility] PLATELET COUNT 145 140 - 440 thou/cu mm 07/03/2023 5:44 AM CDT [facility] MPV 10.3 6.5 - 11.0 fL 07/03/2023 5:44 AM CDT [facility] NRBC 0.0 % 07/03/2023 5:44 AM CDT [facility] ABS NRBC 0.0 thou /cu mm 07/03/2023 5:44 AM CDT [facility] Blood BLOOD SPECIMEN / Unknown Venipuncture / Unknown 07/03/2023 5:03 AM CDT 07/03/2023 5:32 AM CDT Mono Velasco DO HEMATOLOGY [facility] SENDOUT INTERNAL ZIP [phone] [place] [id number] * Magnesium - Normothermia (07/03/2023 5:03 AM CDT) Only the most recent of14 resultswithin the time period is included. MAGNESIUM 2.2 1.6 - 2.4 mg/dL 07/03/2023 5:55 AM CDT [facility] Blood BLOOD SPECIMEN / Unknown Venipuncture / Unknown 07/03/2023 5:03 AM CDT 07/03/2023 5:32 AM CDT Mono Velasco DO CHEMISTRY [facility] SENDOUT INTERNAL ZIP [phone] [place] [id number] * SCAN-CARDIAC STRIP (07/03/2023 1:00 AM CDT) Scanner OTHER * SCAN-CARDIAC STRIP (07/03/2023 12:00 AM CDT) Scanner OTHER * SCAN-CARDIAC STRIP (07/03/2023 12:00 AM CDT) Scanner OTHER * SCAN-CARDIAC STRIP (07/02/2023 4:07 PM CDT) Scanner OTHER * MRSA/SA PCR (07/02/2023 10:07 AM CDT) MRSA DNA PCR Negative Negative 07/02/2023 11:24 AM CDT [facility] STAPHYLOCOCCUS AUREUS PCR Negative Negative 07/02/2023 11:24 AM CDT [facility] Other SPECIMEN FROM INTERNAL NOSE / Unknown Non-Blood / Unknown 07/02/2023 10:07 AM CDT 07/02/2023 10:13 AM CDT Narrative [facility] - 07/02/2023 11:24 AM CDT Test result does not preclude MRSA or SA nasal colonization. Mono Velasco DO MICROBIOLOGY [facility] SENDOUT INTERNAL ZIP [phone] [place] [address] * (ABNORMAL) URINALYSIS MICROSCOPIC (07/02/2023 8:43 AM CDT) Pathologist [facility] RBC >100(A) 0-2, None Seen /HPF 07/02/2023 9:06 AM CDT [facility] WBC >100(A) 0-2, 3-5, None Seen /HPF 07/02/2023 9:06 AM CDT [facility] BACTERIA Many(A) None Seen, Rare, Few Bacteria/ HPF 07/02/2023 9:06 AM CDT [facility] EPITHELIAL CELLS None Seen None Seen, Few Epi/HPF 07/02/2023 9:06 AM CDT [facility] HYALINE CASTS 6-10(A) 0-2, 3-5 /LPF 07/02/2023 9:06 AM CDT [facility] Urine URINE SPECIMEN / Unknown Non-Blood / Unknown 07/02/2023 8:43 AM CDT 07/02/2023 8:48 AM CDT Mono Velasco DO URINE [facility] SENDOUT INTERNAL ZIP [phone] [place] [phone] * (ABNORMAL) UA W/ SEDIMENT EXAM REFLEXED PER CRITERIA (07/02/2023 8:43 AM CDT) COLOR Yellow Yellow Color 07/02/2023 8:59 AM CDT [facility] CLARITY Cloudy(A) Clear Clarity 07/02/2023 8:59 AM CDT [facility] SPECIFIC GRAVITY,URINE >=1.030(A) 1.010, 1.015, 1.020, 1.025 07/02/2023 8:59 AM CDT [facility] PH,URINE 6.0 6.0, 7.0, 8.0, 5.5, 6.5, 7.5, 8.5 07/02/2023 8:59 AM CDT [facility] UROBILINOGEN, QUALITATIVE Normal Normal EU/dl 07/02/2023 8:59 AM CDT [facility] PROTEIN, URINE 30(A) Negative mg/dL 07/02/2023 8:59 AM CDT [facility] GLUCOSE, URINE Negative Negative mg/dL 07/02/2023 8:59 AM CDT [facility] KETONES,URINE Negative Negative mg/dL 07/02/2023 8:59 AM CDT [facility] BILIRUBIN,URI NE Negative Negative 07/02/2023 8:59 AM CDT [facility] OCCULT BLOOD,URINE Large(A) Negative 07/02/2023 8:59 AM CDT [facility] NITRITE Negative Negative 07/02/2023 8:59 AM CDT [facility] LEUKOCYTE ESTERASE Moderate(A) Negative 07/02/2023 8:59 AM CDT [facility] Urine URINE SPECIMEN / Unknown Non-Blood / Unknown 07/02/2023 8:43 AM CDT 07/02/2023 8:48 AM CDT Mono Velasco DO URINE [facility] SENDOUT INTERNAL ZIP [phone] [place] [address] * SCAN-CARDIAC STRIP (07/02/2023 7:15 AM CDT) Scanner OTHER * (ABNORMAL) TRIGLYCERIDES propofol (07/02/2023 5:04 AM CDT) Only the most recent of2 resultswithin the time period is included. Pathologist [facility] TRIGLYCERIDES 383(H) <150 mg/dL 07/02/2023 5:35 AM CDT [facility] PROVIDER ORDERED STATUS RANDOM 07/02/2023 5:35 AM CDT [facility] Blood BLOOD SPECIMEN / Unknown Non-Lab Venipuncture / Unknown 07/02/2023 5:04 AM CDT 07/02/2023 5:11 AM CDT AnhAffibodyJie Brown CHEMISTRY Performing Organization Address City/[facility]/ZIP Co de Phone Number [facility] SENDOUT INTERNAL ZIP [phone] [place] [address] * CK TOTAL propofol (07/02/2023 5:04 AM CDT) Only the most recent of2 resultswithin the time period is included. Pathologist [facility] CK,TOTAL 45 26 - 192 IU/L 07/02/2023 5:35 AM CDT [facility] Blood BLOOD SPECIMEN / Unknown Non-Lab Venipuncture / Unknown 07/02/2023 5:04 AM CDT 07/02/2023 5:11 AM CDT [employer] CHEMISTRY [facility] SENDOUT INTERNAL ZIP [phone] [place] [address] * (ABNORMAL) BASIC METABOLIC PANEL (07/02/2023 5:04 AM CDT) Only the most recent of3 resultswithin the time period is included. Pathologist [facility] SODIUM 139 136 - 145 mmol/L 07/02/2023 5:35 AM CDT [facility] POTASSIUM 3.7 3.5 - 5.1 mmol/L 07/02/2023 5:35 AM T [facility] CHLORIDE 106 98 - 107 mmol/L 07/02/2023 5:35 AM T [facility] CO2,TOTAL 23 22 - 29 mmol/L 07/02/2023 5:35 AM [facility] ANION GAP 10 5 - 18 07/02/2023 5:35 AM T [facility] GLUCOSE 104(H) 70 - 99 mg/dL 07/02/2023 5:35 AM [facility] CALCIUM 8.6(L) 8.8 - 10.2 mg/dL 07/02/2023 5:35 AM [facility] BUN 17 8 - 23 mg/dL 07/02/2023 5:35 AM [facility] CREATININE 0.69 0.50 - 0.90 mg/dL 07/02/2023 5:35 AM [facility] BUN/CREAT RATIO 25(H) 10 - 20 5:35 AM [facility] eGFR >90 >90 mL/min/1.7 3m2 07/02/2023 5:35 AM [facility] Comment:As of 2021, eG FR is calculated by the CKD-EPI creatinine equation without race adjustment. ??eGFR can be influenced by muscle mass, exercise, and diet. ??The reported eGFR is an estimation only and is only applicable if the renal function is stable. Blood BLOOD SPECIMEN / Unknown Non-Lab Venipuncture / Unknown 07/02/2023 5:04 AM CDT 07/02/2023 5:11 AM CDT Darryl Piper MD CHEMISTRY [facility] SENDOUT INTERNAL ZIP [phone] [place] [address] * SCAN-CARDIAC STRIP (07/01/2023 8:11 PM CDT) Scanner OTHER * SCAN-CARDIAC STRIP (07/01/2023 2:37 PM CDT) Scanner OTHER * SCAN-CARDIAC STRIP (07/01/2023 7:42 AM CDT) Scanner OTHER * (ABNORMAL) PROCALCITONIN (07/01/2023 6:58 AM CDT) PROCALCITONIN 1.66(H) ng/ml 07/01/2023 7:34 AM CDT [facility] Blood BLOOD SPECIMEN / Unknown Non-Lab Venipuncture / Unknown 07/01/2023 6:58 AM CDT 07/01/2023 7:01 AM CDT Narrative [facility] - 07/01/2023 7:34 AM CDT Procalcitonin for initial assessment of Lower Respiratory Tract Infection: Results Interpretation <0.10 ng/mL Antibiotic therapy strongly discoraged. ??Indicates absent of bacterial infection. * 0.10 - 0.25 ng/mL Antibiotic therapy discouraged. ??Bacterial infection unlikely. * 0.26 - 0.50 ng/mL Antibiotic therapy encouraged. ??Bacterial infection possible. >0.50 ng/mL Antibiotic therapy strongly encouraged. ??Suggestive of presence of bacterial infection. *Antibiotic therapy should be considered regardless of PCT result if the patient is clinically unstable, is at high risk for adverse outcome, has strong evidence of bacterial pathogen, or the clinical context indicates antibiotic therapy is warranted. ??If antibiotics are withheld, reassess if symptoms persist/worsen and/or repeat PCT measurement within 6-24 hours. ? In order to assess treatment success and to support a decision to discontinue antibiotic therapy, follow up samples should be tested once every 1-2 days, based upon physician discretion taking into account patient's evolution and progress. Procalcitonin for initial assessment of severe sepsis risk: Results Interpretation <0.5 ng/ml A PCT level below 0.5 ng/ml on the first day of ICU admission is associated with a low risk for progression to severe sepsis and/or septic shock. > 2.0 ng/mL A PCT level above 2.0 ng/mL on the first day of ICU admission is associated with a high risk for progression to severe sepsis and/or septic shock. Note: Concentrations < 0.5 ng/mL do not exclude an infection, on account of localized infections (without systemic signs) which can be associated with such low concentrations, or a systemic infection in its initial stages(< 6 hours). Furthermore, increased procalcitonin can occur without infection. PCT concentrations between 0.5 and 2.0 ng/mL should be interpreted taking into account the patient's history. It is recommended to retest PCT within 6-24 hours if any concentrations < 2 ng/mL are obtained. Tuyet Farias [employer] SEND OUTS [facility] SENDOUT INTERNAL ZIP [phone] [place] [address] * (ABNORMAL) HEPATIC FUNCTION PANEL (07/01/2023 4:43 AM CDT) Only the most recent of2 resultswithin the time period is included. ALBUMIN 3.4(L) 4.0 - 4.9 g/dL 07/01/2023 9:08 AM T [facility] PROTEIN,TOTAL 5.3(L) 6.0 - 8.0 g/dL 07/01/2023 9:08 AM T [facility] BILIRUBIN,TOTAL 0.4 0.0 - 1.2 mg/dL 07/01/2023 9:08 AM T [facility] BILIRUBIN,DIRECT <0.2 0.0 - 0.3 mg/dL 07/01/2023 9:08 AM T [facility] BILIRUBIN,INDIRE CT 07/01/2023 9:08 AM T [facility] Comment:Unable to calculate, Direct Bili <0.2 ALK PHOSPHATASE 68 35 - 104 IU/L 07/01/2023 9:08 AM T [facility] ALT (SGPT) 104(H) 10 - 35 IU/L 07/01/2023 9:08 AM T [facility] AST (SGOT) 45(H) 10 - 35 IU/L 07/01/2023 9:08 AM T [facility] Blood BLOOD SPECIMEN / Unknown Non-Lab Venipuncture / Unknown 07/01/2023 4:43 AM CDT 07/01/2023 4:51 AM CDT Mono Velasco DO CHEMISTRY [facility] SENDOUT INTERNAL ZIP [phone] [place] [address] * SCAN-CARDIAC STRIP (06/30/2023 8:12 PM CDT) Scanner OTHER * AMMONIA (06/30/2023 1:40 PM CDT) Pathologist [facility] AMMONIA 27 16 - 60 umol/L 06/30/2023 2:10 PM CDT [facility] Blood BLOOD SPECIMEN / Unknown Arterial / Unknown 06/30/2023 1:40 PM CDT 06/30/2023 1:44 PM CDT Narrative [facility] - 06/30/2023 2:10 PM CDT 1. ??Sulfasalazine and its metabolite Sulfapyridine at therapeutic concentrations may lead to falsely low results. 2. ??Temozolomide and its metabolite MTIC may lead to falsely elevated results, and its metabolite AIC may lead to falsely low results. Suma Velez MD CHEMISTRY Performing Organization Address City/[facility]/ZIP Co de Phone Number [facility] SENDOUT INTERNAL ZIP [phone] [place] [address] * ECHO TTE COMPLETE W CONTRAST (06/30/2023 9:12 AM CDT) Pathologist [facility] EJECTION FRACTION 50% PROSOLV Anatomical Region Laterality Modality Ultrasound 06/30/2023 8:27 AM CDT Narrative 06/30/2023 11:35 AM CDT [address] [address] Main: [email or web address] ? 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 Weight: 231 lbs BMI: 36.2 kg/m?? HR: 81 Location: Inpatient (Portable) Rhythm: Artificially Paced Procedure Components: 2D imaging with contrast, Color Doppler, Spectral Doppler Indications: Cardiac Arrest Technical Quality: Fair Contrast: Definity Constrast Dose (ml): 0.3 [facility]#: [id number] Final Conclusion 1. Normal left ventricular chamber size. Mild basal sigmoid septal hypertrophy. ?? Mildly decreased left ventricular systolic function. Estimated left ventricular ejection fraction is 50%. Abnormal ventricular septal motion due to abnormal conduction. ??There is mid to apical inferior hypokinesis. 2. Normal right ventricular size and systolic function. 3. Trileaflet aortic valve. Aortic valve sclerosis without stenosis. 4. Moderately calcified mitral annulus. Thickened mitral valve chords. Mildly thickened mitral valve. No mitral valve stenosis. Trivial mitral valve regurgitation. 5. Mild aortic sinus of Valsalva dilatation (4.1 cm). Upper normal indexed ascending aorta dimension (4 cm, 1.9 cm/m??). 6. No pericardial effusion. 7. There were no prior studies available for comparison. Estimated EF: 50% FINDINGS Left Ventricle Normal left ventricular chamber size. Mild basal sigmoid septal hypertrophy. ?? Mildly decreased left ventricular systolic function. Estimated left ventricular ejection fraction is 50%. Abnormal ventricular septal motion due to abnormal conduction. ??There is mid to apical inferior hypokinesis. Diastolic Function Indeterminate left ventricular diastolic function. Right Ventricle Normal right ventricular chamber size. Normal right ventricular systolic function. Right ventricular systolic pressure cannot be estimated due to inability to detect peak tricuspid regurgitation Doppler velocity. Left Atrium Normal left atrial size. Left atrial volume index is 33 ml/m??. Right Atrium Normal right atrial size. Atrial Septum No evidence of inter-atrial shunt by color flow Doppler. Aortic Valve Trileaflet aortic valve. Aortic valve sclerosis without stenosis. No aortic valve regurgitation. Mitral Valve Moderately calcified mitral annulus. Thickened mitral valve chords. Mildly thickened mitral valve. No mitral valve stenosis. Trivial mitral valve regurgitation. Tricuspid Valve Normal tricuspid valve. No tricuspid valve stenosis. Trivial tricuspid valve regurgitation. Pulmonic Valve Pulmonary valve was not well visualized. No pulmonary valve stenosis. No pulmonary valve regurgitation. Pericardium No pericardial effusion. Aorta Mild aortic sinus of Valsalva dilatation (4.1 cm). Upper normal indexed ascending aorta dimension (4 cm, 1.9 cm/m??). Inferior Vena Cava Normal inferior vena cava. MEASUREMENTS ??(Male / Female) Normal Values 2D MEASUREMENTS AND LV FUNCTION IVS Diastolic Thickness ? 1.22 cm ? < 1.1 cm / < 1.0 cm LV Diastolic Diameter PLAX ?4.41 cm ? 4.2 - 5.9 / 3.9 - 5.3 cm LV Diastolic Diameter Index ? 2.05 cm/m?? LVPW Diastolic Thickness ?1.27 cm ? < 1.1 cm / < 1.0 cm LV Systolic Diameter PLAX ? 3.3 cm LV Systolic Diameter Index ?1.54 cm/m?? LVOT Diameter ? 2.3 cm LVOT Cardiac Output ? 5.08 l/min LVOT Cardiac Index ?2.24 l/min??m?? LVOT Stroke Volume ?62.7 ml Stroke Volume Index ? 27.7 ml/m?? LA Volume MOD BP ?71.9 ml LA Volume Index MOD BP ?33.4 ml/m?16 - 34 ml/m?? RV Diastolic Basal Diameter ? 3.89 cm LV Mass ? 203 g LV Mass Index ? 91 g/m?? Sinuses of Valsalva Diameter(d) ?? 4.1 cm Ascending Aorta Diameter(s) ? 4 cm IVC Diameter Expiration ? 1.71 cm Ascending Aorta Index ? 1.86 cm/m?? M MODE TAPSE MM ?2.1 cm DIASTOLOGY LV E' Lateral Velocity ?0.0664 m/sec LV E' Septal Velocity ? 0.0435 m/sec AORTIC VALVE AV Peak Velocity ?1.03 m/sec ?< 2.0 m/sec AV Peak Gradient ?4.24 mmHg AV Mean Gradient ?3 mmHg AV Velocity Time Integral ? 17.3 cm LVOT Peak Velocity ?0.924 m/sec LVOT Velocity Time Integral ? 15.1 cm AV Area Cont Eq vti ? 3.63 cm?? AV Area Cont Eq pk ?3.73 cm?? AV Dimensionless Index ?0.873 MITRAL VALVE MV Peak Gradient ?4.16 mmHg MV Mean Gradient ?2 mmHg MV Velocity Time Integral ? 24.2 cm TRICUSPID VALVE AND ESTIMATED PRESSURES Right Atrial Pressure ? 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 Weight: 231 lbs BMI: 36.2 kg/m?? HR: 81 Location: Inpatient (Portable) Rhythm: Artificially Paced Procedure Components: 2D imaging with contrast, Color Doppler, SpectralDoppler Indications: Cardiac Arrest Technical Quality: Fair Contrast: Definity Constrast Dose (ml): 0.3 [facility]#: [id number] Final Conclusion 1. Normal left ventricular chamber size. Mild basal sigmoid septalhypertrophy. Mildly decreased left ventricular systolic function. Estimated left ventricular ejection fraction is 50%. Abnormal ventricularseptal motion due to abnormal conduction. There is mid to apical inferior hypokinesis. 2. Normal right ventricular size and systolic function. 3. Trileaflet aortic valve. Aortic valve sclerosis without stenosis. 4. Moderately calcified mitral annulus. Thickened mitral valve chords.Mildly thickened mitral valve. No mitral valve stenosis. Trivial mitral valve regurgitation. 5. Mild aortic sinus of Valsalva dilatation (4.1 cm). Upper normalindexed ascending aorta dimension (4 cm, 1.9 cm/m??). 6. No pericardial effusion. 7. There were no prior studies available for comparison. Estimated EF: 50% FINDINGS Left Ventricle Normal left ventricular chamber size. Mild basal sigmoidseptal hypertrophy. Mildly decreased left ventricular systolic function. Estimated left ventricular ejection fraction is 50%.Abnormal ventricular septal motion due to abnormal conduction. There is mid to apical inferior hypokinesis. Diastolic Function Indeterminate left ventricular diastolic function. Right Ventricle Normal right ventricular chamber size. Normal rightventricular systolic function. Right ventricular systolic pressure cannot be estimated due to inability to detect peak tricuspidregurgitation Doppler velocity. Left Atrium Normal left atrial size. Left atrial volume index is 33ml/m??. Right Atrium Normal right atrial size. Atrial Septum No evidence of inter-atrial shunt by color flow Doppler. Aortic Valve Trileaflet aortic valve. Aortic valve sclerosis withoutstenosis. No aortic valve regurgitation. Mitral Valve Moderately calcified mitral annulus. Thickened mitral valvechords. Mildly thickened mitral valve. No mitral valve stenosis. Trivial mitral valve regurgitation. Tricuspid Valve Normal tricuspid valve. No tricuspid valve stenosis.Trivial tricuspid valve regurgitation. Pulmonic Valve Pulmonary valve was not well visualized. No pulmonaryvalve stenosis. No pulmonary valve regurgitation. Pericardium No pericardial effusion. Aorta Mild aortic sinus of Valsalva dilatation (4.1 cm). Upper normalindexed ascending aorta dimension (4 cm, 1.9 cm/m??). Inferior Vena Cava Normal inferior vena cava. MEASUREMENTS (Male / Female) Normal Values 2D MEASUREMENTS AND LV FUNCTION IVS Diastolic Thickness 1.22 cm < 1.1 cm / < 1.0cm LV Diastolic Diameter PLAX 4.41 cm 4.2 - 5.9 / 3.9 -5.3 cm LV Diastolic Diameter Index 2.05 cm/m?? LVPW Diastolic Thickness 1.27 cm < 1.1 cm / < 1.0cm LV Systolic Diameter PLAX 3.3 cm LV Systolic Diameter Index 1.54 cm/m?? LVOT Diameter 2.3 cm LVOT Cardiac Output 5.08 l/min LVOT Cardiac Index 2.24 l/min??m?? LVOT Stroke Volume 62.7 ml Stroke Volume Index 27.7 ml/m?? LA Volume MOD BP 71.9 ml LA Volume Index MOD BP 33.4 ml/m?? 16 - 34 ml/m?? RV Diastolic Basal Diameter 3.89 cm LV Mass 203 g LV Mass Index 91 g/m?? Sinuses of Valsalva Diameter(d) 4.1 cm Ascending Aorta Diameter(s) 4 cm IVC Diameter Expiration 1.71 cm Ascending Aorta Index 1.86 cm/m?? M MODE TAPSE MM 2.1 cm DIASTOLOGY LV E' Lateral Velocity 0.0664 m/sec LV E' Septal Velocity 0.0435 m/sec AORTIC VALVE AV Peak Velocity 1.03 m/sec < 2.0 m/sec AV Peak Gradient 4.24 mmHg AV Mean Gradient 3 mmHg AV Velocity Time Integral 17.3 cm LVOT Peak Velocity 0.924 m/sec LVOT Velocity Time Integral 15.1 cm AV Area Cont Eq vti 3.63 cm?? AV Area Cont Eq pk 3.73 cm?? AV Dimensionless Index 0.873 MITRAL VALVE MV Peak Gradient 4.16 mmHg MV Mean Gradient 2 mmHg MV Velocity Time Integral 24.2 cm TRICUSPID VALVE AND ESTIMATED PRESSURES Right Atrial Pressure 3 mmHg HCM DATA LVOT ALPHONSE (r) 3.42 mmHg Aortic Root ZScore: 2.60 Enriqueta Sanchez MD [facility] Accredited Site (Electronically Signed) Final Date: 30 Jun 2023 11:34 ICD-10 Codes: 427.5 Lonny Mahan MD ECHO ORD * SCAN-CARDIAC STRIP (06/30/2023 8:00 AM CDT) Scanner OTHER * CWS PATH REVIEW HEMATOLOGY (06/30/2023 4:06 AM CDT) Blood BLOOD SPECIMEN / Unknown Non-Lab Venipuncture / Unknown 06/30/2023 4:06 AM CDT 06/30/2023 4:18 AM CDT Raffi Tucker DO LABORATORY [facility] SENDOUT INTERNAL ZIP [phone] [place] [id number] * (ABNORMAL) CBC WITH AUTO DIFFERENTIAL (06/30/2023 4:06 AM CDT) WHITE BLOOD COUNT 26.6(H) 4.5 - 11.0 thou/cu mm 06/30/2023 5:05 AM CDT [facility] RED BLOOD COUNT 5.21(H) 4.00 - 5.20 mil/cu mm 06/30/2023 5:05 AM CDT [facility] HEMOGLOBIN 13.4 12.0 - 16.0 g/dL 06/30/2023 5:05 AM [facility] HEMATOCRIT 41.0 33.0 - 51.0 % 06/30/2023 5:05 AM [facility] MCV 79(L) 80 - 100 fL 06/30/2023 5:05 AM [facility] MCH 25.7(L) 26.0 - 34.0 pg 06/30/2023 5:05 AM [facility] MCHC 32.7 32.0 - 36.0 g/dL 06/30/2023 5:05 AM [facility] RDW 15.0 11.5 - 15.5 % 06/30/2023 5:05 AM [facility] PLATELET COUNT 328 140 - 440 thou/cu mm 06/30/2023 5:05 AM [facility] MPV 9.4 6.5 - 11.0 fL 06/30/2023 5:05 AM [facility] NRBC 0.0 % 06/30/2023 5:05 AM [facility] ABS NRBC 0.0 thou /cu mm 06/30/2023 5:05 AM [facility] Blood BLOOD SPECIMEN / Unknown Non-Lab Venipuncture / Unknown 06/30/2023 4:06 AM CDT 06/30/2023 4:18 AM CDT Raffi Tucker DO HEMATOLOGY Performing Organization Address City/[facility]/ZIP Co de Phone Number [facility] SENDOUT [place]NAL ZIP [address] [place] [address] * RED CELL MORPHOLOGY (06/30/2023 4:06 AM CDT) RBC COMMENT RBC morphology appears normal RBC morphology appears normal, RBC morphology within normal limits for newborns. 06/30/2023 5:05 AM T [facility] Blood BLOOD SPECIMEN / Unknown Non-Lab Venipuncture / Unknown 06/30/2023 4:06 AM CDT 06/30/2023 4:18 AM CDT Raffi Tucker DO HEMATOLOGY [facility] SENDOUT [place]IP [address] [address] [place] [address] * PLATELET ESTIMATE (06/30/2023 4:06 AM CDT) PLATELET ESTIMATE Adequate Adequate, No estimate 06/30/2023 5:05 AM [facility] Blood BLOOD SPECIMEN / Unknown Non-Lab Venipuncture / Unknown 06/30/2023 4:06 AM CDT 06/30/2023 4:18 AM CDT Raffi Tucker DO HEMATOLOGY [facility] SENDOUT [place]IP [address] [address] [place] [address] * (ABNORMAL) MANUAL DIFFERENTIAL (06/30/2023 4:06 AM CDT) % NEUTROPHILS 91.0 % 06/30/2023 5:05 AM [facility] % LYMPHOCYTES 1.0 % 06/30/2023 5:05 AM [facility] % MONOCYTES 7.0 % 06/30/2023 5:05 AM [facility] % EOSINOPHILS 0.0 % 06/30/2023 5:05 AM [facility] % BASOPHILS 0.0 % 06/30/2023 5:05 AM [facility] % METAMYELOCYTES 1.0(H) <0.1 % 06/30/19 24 5:05 AM [facility] NEUTROPHILS ABSOLUTE 24.2(H) 1.7 - 7.0 thou/cu mm 06/30/2023 5:05 AM [facility] LYMPHOCYTES ABSOLUTE 0.3(L) 0.9 - 2.9 thou/cu mm 06/30/2023 5:05 AM [facility] MONOCYTES ABSOLUTE 1.9(H) <0.9 thou/cu mm 06/30/2023 5:05 AM [facility] EOSINOPHILS ABSOLUTE 0.0 <0.5 thou/cu mm 06/30/2023 5:05 AM [facility] BASOPHILS ABSOLUTE 0.0 <0.3 thou/cu mm 06/30/2023 5:05 AM [facility] ABSOLUTE METAMYELOCYTES 0.3(H) <=0.0 thou/cu mm 06/30/2023 5:05 AM [facility] Blood BLOOD SPECIMEN / Unknown Non-Lab Venipuncture / Unknown 06/30/2023 4:06 AM CDT 06/30/2023 4:18 AM CDT Raffi Tucker DO HEMATOLOGY [facility] SENDOUT INTERNAL ZIP [address] [place] [address] * (ABNORMAL) COMP METABOLIC PANEL (06/30/2023 4:06 AM CDT) SODIUM 141 136 - 145 mmol/L 06/30/2023 4:43 AM [facility] POTASSIUM 3.7 3.5 - 5.1 mmol/L 06/30/2023 4:43 AM [facility] CHLORIDE 106 98 - 107 mmol/L 06/30/2023 4:43 AM [facility] CO2,TOTAL 21(L) 22 - 29 mmol/L 06/30/2023 4:43 AM [facility] ANION GAP 14 5 - 18 06/30/2023 4:43 AM [facility] GLUCOSE 162(H) 70 - 99 mg/dL 06/30/2023 4:43 AM [facility] CALCIUM 8.6(L) 8.8 - 10.2 mg/dL 06/30/2023 4:43 AM [facility] BUN 15 8 - 23 mg/dL 06/30/2023 4:43 AM [facility] CREATININE 0.81 0.50 - 0.90 mg/dL 06/30/2023 4:43 AM [facility] BUN/CREAT RATIO 19 10 - 20 4:43 AM [facility] eGFR 83(L) >90 mL/min/1.7 3m2 06/30/2023 4:43 AM [facility] Comment:As of 2021, eG FR is calculated by the CKD-EPI creatinine equation without race adjustment. ??eGFR can be influenced by muscle mass, exercise, and diet. ??The reported eGFR is an estimation only and is only applicable if the renal function is stable. ALBUMIN 3.9(L) 4.0 - 4.9 g/dL 06/30/2023 4:43 AM CDT [facility] PROTEIN,TOTAL 5.9(L) 6.0 - 8.0 g/dL 06/30/2023 4:43 AM CDT [facility] BILIRUBIN,TOTAL 0.3 0.0 - 1.2 mg/dL 06/30/2023 4:43 AM CDT [facility] ALK PHOSPHATASE 95 35 - 104 IU/L 06/30/2023 4:43 AM T [facility] ALT (SGPT) 172(H) 10 - 35 IU/L 06/30/2023 4:43 AM T [facility] AST (SGOT) 109(H) 10 - 35 IU/L 06/30/2023 4:43 AM T [facility] Blood BLOOD SPECIMEN / Unknown Non-Lab Venipuncture / Unknown 06/30/2023 4:06 AM CDT 06/30/2023 4:18 AM CDT Raffi Tucker DO CHEMISTRY [facility] SENDOUT INTERNAL ZIP [address] [place] [address] * SCAN-CARDIAC STRIP (06/30/2023 3:08 AM CDT) Scanner OTHER * SCAN-CARDIAC STRIP (06/30/2023 12:28 AM CDT) Scanner OTHER * (ABNORMAL) ARTERIAL BLOOD GAS (06/30/2023 12:09 AM CDT) PH, ARTERIAL 7.31(L) 7.35 - 7.45 06/30/2023 12:17 AM CDT [facility] PCO2, ARTERIAL 43 32 - 45 mmHg 06/30/2023 12:17 AM CDT [facility] PO2, ARTERIAL 105 83 - 108 mmHg 06/30/2023 12:17 AM CDT [facility] HCO3, ARTERIAL 22 21 - 28 mmol/L 06/30/2023 12:17 AM T [facility] BASE EXCESS, ARTERIAL -4.5(L) -2.0 - 3.0 06/30/2023 12:17 AM CDT [facility] O2 SATURATION, ARTERIAL 99(H) 94 - 98 % 06/30/2023 12:17 AM CDT [facility] INSPIRED O2 06/30/2023 12:17 AM CDT [facility] Comment:Unit of Measure: Lit ers (L) if <=20; Percent (%) if >20 PATIENT TEMPERATURE 37.0 Degrees C 06/30/2023 12:17 AM CDT [facility] Blood ARTERIAL BLOOD SPECIMEN / Unknown Non-Lab Venipuncture / Unknown 06/30/2023 12:09 AM CDT 06/30/2023 12:14 AM CDT Anh Kendrick DO CHEMISTRY [facility] SENDOUT INTERNAL ZIP [address] [address] [place] [address] * XR ABDOMEN 1 VIEW PORTABLE (06/29/2023 11:09 PM CDT) Anatomical Region Laterality Modality Abdomen Computed Radiogr aphy 06/29/2023 11:0 9 PM CDT Impressions 06/29/2023 11:20 PM CDT Nasogastric tube tip overlies the proximal stomach and side port overlies the expected region of the gastroesophageal junction. Recommend slight advancement to achieve side-port position squarely within stomach. Mild gaseous distention of the stomach. What appears to be a right groin approach venous catheter courses cephalad above the diaphragms and out of the field of view. Cholecystectomy. Narrative 06/29/2023 11:20 PM CDT For Patients: As a result of the Century Cures Act, medical imaging exams and procedure reports are released immediately into your electronic medical record. You may view this report before your referring provider. If you have questions, please contact your health care provider. EXAM: XR ABDOMEN 1 VIEW PORTABLE LOCATION: [facility] DATE: 06/29/2023 INDICATION: Tube placement COMPARISON: CT 09/21/2022 Procedure Note Humphrey Borrego MD - 06/29/2023 For Patients: As a result of the Cures Act, medical imagingexams and procedure reports are released immediately into your electronicmedical record. You may view this report before your referring provider.If you have questions, please contact your health care provider. EXAM: XR ABDOMEN 1 VIEW PORTABLE LOCATION: [facility] DATE: 06/29/2023 INDICATION: Tube placement COMPARISON: CT 09/21/2022 IMPRESSION: Nasogastric tube tip overlies the proximal stomach and side port overliesthe expected region of the gastroesophageal junction. Recommend slightadvancement to achieve side-port position squarely within stomach. Mildgaseous distention of the stomach. What appears to be a right groinapproach venous catheter courses cephalad above the diaphragms and out ofthe field of view. Cholecystectomy. Anh Kendrick DO GENERAL IMAGI NG * (ABNORMAL) ISTAT EG6+ ABG (06/29/2023 9:46 PM CDT) Only the most recent of2 resultswithin the time period is included. PH, ARTERIAL 7.30(L) 7.35 - 7.45 07/01/2023 7:03 AM [facility] PCO2, ARTERIAL 41 32 - 45 mmHg 07/01/2023 7:03 AM [facility] PO2, ARTERIAL 67(L) 83 - 108 mmHg 07/01/2023 7:03 AM [facility] HCO3, ARTERIAL 21 21 - 28 mmol/L 07/01/2023 7:03 AM [facility] BASE EXCESS, ARTERIAL -6.0(L) -2.0 - 3.0 07/01/2023 7:03 AM [facility] O2 SATURATION, ARTERIAL 91(L) 94 - 98 % 07/01/2023 7:03 AM [facility] SODIUM, POCT 07/01/2023 7:03 AM [facility] Comment:Unable to determine. POTASSIUM, POCT 7:03 AM [facility] Comment:Unable to determine. INSPIRED O2,ISTAT 07/01/2023 7:03 AM [facility] Comment:Not given PATIENT TEMPERATURE 37.0 Degrees C 07/01/2023 7:03 AM CDT [facility] WENDY'S TEST Normal 07/01/2023 7:03 AM CDT [facility] SAMPLE TYPE,ISTAT BLOOD GAS ARTERIAL 07/01/2023 7:03 AM CDT [facility] Blood BLOOD SPECIMEN / Unknown 06/29/2023 9:46 PM CDT 07/01/2023 7:03 AM CDT Anh Kendrick DO CHEMISTRY [facility] SENDOUT INTERNAL ZIP [address] [place] [address] * (ABNORMAL) ACTIVATED CLOTTING TIME [id number] ACT (06/29/2023 9:21 PM CDT) ACTIVATED CLOTTING TIME, POCT 139(H) 74 - 125 sec 07/01/2023 7:03 AM CDT [facility] Blood BLOOD SPECIMEN / Unknown 06/29/2023 9:21 PM CDT 07/01/2023 7:03 AM CDT Kristina SHIRLEY HEMATOLOGY Performing Organization Address City/[facility]/ZIP Co de Phone Number [facility] SENDOUT INTERNAL ZIP [phone] [place] [address] * CVL CORONARY ANGIOGRAM POSS PCI (06/29/2023 9:12 PM CDT) Anatomical Region Laterality Modality X-Ray Angiograph y 06/29/2023 9:12 PM CDT Narrative Transcriptions Lonny Mahan MD - 06/29/2023 11:14 PM CDT [facility] Cardiac Catheterization Report Name: NANCI CORONEL Event Date: 06/29/2023 21:12 Excellian ID #: [id number] SURINDER #: [id number] Diagnostic Physician: LONNY MAHAN [facility] Interventional Physician: LONNY MAHAN [facility] Referring Physician: Primary Care Physician: TIMOTEO BEAVERS Date: 1965 Gender: Female Age: 58 Summary/Conclusions PRESENTATION / INDICATIONS * Out of hospital cardiac arrest * Symptomatic complete heart block * Known cardiac sarcoid * Emergent Surgical Instrument Technician activation VASCULAR ACCESS * Using ultrasound guidance and a percutaneous technique, the right commonfemoral artery and vein were accessed. Ultrasound was used to confirmvessel patency, localizing needle into the lumen of the vessel. An imagewas saved for the medical record. DIAGNOSTIC - CORONARY * Right dominant coronary artery system * The left main artery has no significant obstruction. * The LAD has no significant obstruction, including a large proximal D1,small proximal to mid D2, and large mid D3. * The circumflex artery has no significant obstruction, including a largeproximal OM1, and large, bifurcating mid OM 2. Large recurrent atrialbranch is noted.. * The RCA has no significant obstruction, including the RPDA and PLAnetwork. DIAGNOSTIC - VALVES *Moderate to severe mitral annular calcification noted. HEMODYNAMICS * The LVEDP is within normal limits SPECIAL EQUIPMENT * A temporary pacemaker was inserted given the presence of complete heartblock upon arrival to the Surgical Instrument Technician. RECOMMENDATIONS & PLAN * No angiographically significant coronary artery disease * Successful placement of a transvenous temporary pacemaker into the RVapex. Rate set at 80 bpm at 5 mA. * Transfer to the ICU * Initiate high-dose steroids * Echocardiogram in a.m. * Anticipate implantation of VICE CHANCELLOR D device * Results discussed with inpatient cardiology and ICU teams Consent & Blossom Protocol The risks, benefits, and alternatives of the procedure were discussed withthe patient and written informed consent was obtained. Blossom protocol was followed. TIME OUT conducted just prior tostarting procedure confirmed patient identity, site/side, procedure,patient position, and availability of correct equipment and implants (ifapplicable). Staff Name Title Lonny Mahan Wool Washer Verónica Meza RN Shante Jackson RN Joanne Mcintyre RTR Scrub Marlyn Salomon CVT Monitor Procedures ? US Guided Access ? LHC, Cor Angio ? Temporary Pacemaker Placement Hemodynamics State: Baseline Pressures (mmHg) Site Systolic Diastolic End Diastolic A Wave V Wave Mean AO 89 54 45 AO 83 59 47 LV 109 4 18 LV 111 3 17 LV 113 1 16 AO 111 58 75 Procedure Details Estimated Blood Loss: < 30 ml Specimen Collected: None Level of Sedation Achieved: Moderate Procedure Start: 21:12 Procedure End: 22:20 Procedure Time: 68 min Fluoroscopy Time: 8.8 min Cumulative Air Kerma: 556 mGy DAP: 86367 mGy/cm2 Contrast: Visipaque 320, 40 ml Physiologic Data Actual VO2: 273.15 Weight: 102.1 kg BSA: 2.12 m2 Vascular Access Time Access Sheath Size 21:14 Percutaneous Puncture to RFA 21:15 Percutaneous Puncture to RFV Complications ? No Complications Medications Ordered and Administered Start Time Stop Time Medication Dose Units Route Ordered By Given By : 21:42 Dopamine (New Bag) 5 mcg per kg per min Unknown Kath Mahan Joanna RN 21:10 Versed (midazolam) 2 mg IV Lonny Mahan ChristineRN 21:13 Lidocaine 1% 10 ml Subcut Lonny Mahan James T 21:34 Versed (midazolam) 2 mg IV Lonny Mahan ChristineRN 21:42 Fentanyl 50 mcg IV Lonny Mahan Joanna RN 21:55 Fentanyl 50 mcg IV Lonny Mahan Christine RN 21:55 Versed (midazolam) 1 mg IV Lonny Mahan ChristineRN 22:12 Versed (midazolam) 2 mg IV Lonny Mahan ChristineRN I personally monitored the patient?s conscious sedation during theprocedure. Conscious sedation starts with the first sedation medication dose ofFentanyl or Versed and ends when the procedure is completed, the patientis stable for recovery status, and the physician or other qualified healthcare professional providing the sedation ends personal [id number] time with the patient. The medications listed above were verbally ordered by me and read back tome as documented above. Refer to the procedure log report for additional case details. electronically signed on 06/29/2023 11:14:04 PM with status of Final Lonny Mahan MD [address], [place] [address] [place] [address] (p) [phone](f) Images Snapshot: 3 Lonny Mahan MD CV IMAGING * (ABNORMAL) TROPONIN T (HS) ONE TIME (06/29/2023 9:00 PM CDT) TROPONIN T HS 298(H) 6-10 ng/L ng/L 06/29/2023 10:16 PM CDT [facility] Blood BLOOD SPECIMEN / Unknown Non-Lab Venipuncture / Unknown 06/29/2023 9:00 PM CDT 06/29/2023 9:46 PM CDT Narrative [facility] - 06/29/2023 10:16 PM CDT hs-cTnT (Elecsys Troponin T Gen 5) concentration (s) above the sex-specific 99th percentile (16 ng/L or greater for males or 11 ng/L or greater for females) are indicative of myocardial injury. If initial hs-cTnT <=100 ng/L at presentation, a 0h/2h ABSOLUTE (ng/L) delta change (rising or falling) of >=10 ng/L suggests a significant change, whereas a 0h/2h delta change <=3 ng/L suggests no significant change. If initial hs-cTnT >100 ng/L at presentation, a 0h/2h/ RELATIVE (percent, %) delta change of 20% is suggested to distinguish patients with acute vs. chronic myocardial injury. There are multiple etiologies that can cause hs-cTnT increases above the 99th percentile (myocardial injury) other than acute myocardial infarction. Clinical context and careful clinical evaluation are critical for diagnosis and risk-stratification. The diagnosis of acute myocardial infarction requires a rising and/or falling pattern in hs-cTnT concentrations with at least one value above the sex-specific 99th percentile PLUS at least one of the following clinical criteria: ischemic symptoms, new or presumed new significant ST-T wave changes or new LBBB, development of pathological Q waves, imaging evidence of new loss of viable myocardium or new regional wall motion abnormality, or identification of intracoronary atherothrombosis or an acute angiographic culprit on coronary angiography. In appropriate low-risk patients with a non-ischemic electrocardiogram without active chest pain with a symptom onset >3-hours without recurrence, a single initial hs-cTnT<6 ng/L identifies patient with a very low risk in emergency department patient population. Lonny Mahan MD CHEMISTRY Performing Organization Address City/State/[facility] Co de Phone Number [facility] SENDOUT [place]NAL ZIP [phone] [place] [address] * EXTRA TUBE GOLD/SST (06/29/2023 9:00 PM CDT) Blood BLOOD SPECIMEN / Unknown Extra Tube / Unknown 06/29/2023 9:00 PM CDT 06/29/2023 9:46 PM CDT Doctor Unknown LABORATORY Performing Organization Address [facility]/ZIP Co de Phone Number [facility] SENDOUT INTERNAL ZIP [address] [address] [place] [address] * TSH (06/29/2023 9:00 PM CDT) TSH 1.61 0.27 - 4.20 uIU/mL 06/29/2023 10:36 PM CDT [facility] Blood BLOOD SPECIMEN / Unknown Non-Lab Venipuncture / Unknown 06/29/2023 9:00 PM CDT 06/29/2023 9:46 PM CDT Narrative [facility] - 06/29/2023 10:36 PM CDT In Adults, TSH values between 5.00 and 10.00 uIU/ml do not necessarily indicate the presence of Hypothyroidism. Correlation with clinical findings such as presence of goiter and/or Thyroperoxidase (TPO) Antibody may be helpful. For more information please refer to RHONDA 2004; 291: 228-238. Anh Kendrick DO CHEMISTRY Performing Organization Address City/[facility]/ZIP Co de Phone Number [facility] SENDOUT [place]NAL ZIP [address] [address] [place] [address] * PROTIME-INR (06/29/2023 9:00 PM CDT) INR 1.1 <1.3 06/29/2023 9:57 PM CDT [facility] PROTIME 12.2 10.3 - 12.3 sec 06/29/2023 9:57 PM CDT [facility] Blood BLOOD SPECIMEN / Unknown Non-Lab Venipuncture / Unknown 06/29/2023 9:00 PM CDT 06/29/2023 9:46 PM CDT Narrative [facility] - 06/29/2023 9:57 PM CDT ?Therapeutic Range 2.0-3.0 for most anticoagulated patients 2.5-3.5 or 4.0 for high risk patients The INR is only used for patients on stable oral anticoagulant therapy. It makes no significant contribution to the diagnosis or treatment of patients whose Protime is prolonged for other reasons. INR results are increased when heparin levels exceed 1.0 U/mL, which corresponds to an aPTT >125 seconds if the patient is on UFH. Lonny Mahan MD HEMATOLOGY [facility] SENDOUT INTERNAL ZIP [address] [address] [place] [address] * SCAN-CARDIAC STRIP (06/29/2023 12:00 AM CDT) Narrative 06/29/2023 12:00 AM CDT Ordered by an unspecified provider. Other Clinical Staff OTHER * XR MAMMO GHAZALA BILAT SCREEN (06/18/2022 [...] For Patients: As a result of the 21st Century Cures Act, medical imaging exams and procedure reports are released immediately into your electronic medical record. You may view this report before your referring provider. If you have questions, please contact your health care provider. XR MAMMO GHAZALA BILAT SCREEN [[id number]] CLINICAL HISTORY: ??This is an asymptomatic 57 [...] AND CHOL/HDL RATIO (05/28/2022 10:50 AM CDT) Pathologist [facility] Cholesterol, Total 194 100 - 199 mg/dL 05/30/2022 9:10 AM T [facility] ([facility]) Triglycerides 120 0 - 149 mg/dL 05/30/2022 9:10 AM T [facility] ([facility]) HDL Cholesterol 52 >39 mg/dL 9:10 AM T [facility] ([facility]) VLDL Cholesterol Chase 21 5 - 40 mg/dL 05/30/2022 9:10 AM T [facility] ([facility]) LDL Chol Calc ([facility]) 121(H) 0 - 99 mg/dL 05/30/2022 9:10 AM T [facility] ([facility]) T. Chol/HDL Ratio 3.7 0.0 - 4.4 ratio 05/30/2022 9:10 AM [facility] ([facility]) Comment: ?T. Chol/HDL Ratio ?Men ??Women ?1/2 Avg.Risk ??3.4 ?3.3 ?Avg.Risk ??5.0 ?4.4 ? 2X Avg.Risk ??9.6 ?7.1 ? 3X Avg.Risk 23.4 ?? 11.0 Blood BLOOD SPECIMEN / Unknown Venipuncture / Unknown 05/28/2022 10:50 AM CDT 05/28/2022 10:51 AM CDT Narrative [facility] ([facility]) - 05/30/2022 9:10 AM CDT Performed at: ??01 - [facility] [place], [place] [id number] Review Appraiser: Trell Calderon MD, Phone: ??[phone] Gayathri GREENE SEND OUTS Performing Organization Address City/[facility] Co de Phone Number [facility] ([facility]) [address] [place], [place] [id number], * ANTI HCV (05/22/2021 2:25 PM CDT) HEPATITIS C ANTIBODY Non-React milton Non-React milton 05/22/2021 11:58 PM CDT [facility] Comment:Antibodies to HCV no t detected; does not exclude the possibility of exposure to HCV. Blood BLOOD SPECIMEN / Unknown Venipuncture / Unknown 05/22/2021 2:25 PM CDT 05/22/2021 2:28 PM CDT Gayathri GREENE SEND OUTS [facility] [address] [place] [address], * HPV HIGH RISK (05/22/2021 2:02 PM CDT) TYPE 16 Negative Negative 05/24/2021 5:38 PM CDT [facility] TYPE 18 Negative Negative 05/24/2021 5:38 PM CDT [facility] OTHER HIGH RISK TYPES Negative Negative 05/24/2021 5:38 PM CDT [facility] Other (Cervical) Non-Blood / Unknown 05/22/2021 2:02 PM CDT 05/23/2021 8:32 AM CDT Narrative [facility] - 05/24/2021 5:38 PM CDT HPV types 16, 18, 31, 33, 35, 39, 45, 51, 52, 56, 58, 59, 66 and 68 DNA were undetectable or below the pre-set threshold. Methodology: Vocation Abel 4800 HPV Test Gayathri GREENE MICROBIOLOGY [facility] [address] [place] [address], from Last 3 Months or Most Recently Relevant to Health Maintenance Advance Directives Documents on File Type Date Recorded Patient Spanish Tutor Expl anation Healthcare Directive 02/20/2022 022 * Full Code (Latest Code Status on File) Date Activated Date Inactivated Comments 06/29/2023 10:12 PM Question Answer Comments Code Status Discussion: Reviewed Preferences * Full Code Date Activated Date Inactivated Comments 02/21/2022 11:30 AM 02/22/2022 12:12 PM Question Answer Comments Code Status Discussion: Reviewed Preferences Care Teams Buyer Renter Relationship Specialty Start Date End Date Timoteo Beavers MD [address] [place] [address] PCP - General Family Practice 06/17/23
== END 2023-06-29 18:22 | disposition home or self-care (01) ==
LOC: AMB 07-04 05:18
PROVIDERS: PCP Physician Assistant Medical; Visit Provider Student in an Organized Health Care Education/Training Program
DX: I46.9 Cardiac arrest, cause unspecified (principal)
CPT/HCPCS: A0425; A0433

== ENCOUNTER 2023-06-29 19:00 | Emergency (ER) | payer BC, SELFPAY ==
[2023-06-29] VITALS (18 sets, daily range): BP systolic 98–144; BP diastolic 51–97; PULSE 37–68; RESP 13–25; O2SAT 88–100; BMI 35.5
[2023-06-29] MEDS: 0.9 % SODIUM CHLORIDE 1000 ml 1,000 ML IV ×2 (19:00→23:12)
[2023-06-29] MEDS: MIDAZOLAM HCL 1 MG/ML inj 10 MG IVP (19:00)
[2023-06-29] MEDS: fentaNYL 100 MCG/2 ML inj IVP ×2 (19:00→19:38)
[2023-06-29] MEDS: VECURONIUM 1 MG/ML INJ 10 MG IVP (19:04)
--- OUTSIDE RECORDS SUMMARY | 2023-06-29 19:05 | XMS_ITS | Clinical Summary ---
Author Name Unknown Organization [facility] Address [address] [place] [id number] Care Team Providers Care Senior Statistical Programmer Name Role Phone Unavailable Primary Care Provider Unavailabl e Source Comments Patient records contain information from all sites at [facility]. For routine questions regarding patient records, call [phone] during business hours, M-F 8:00 AM - 5:00 PM Central Time. Record requests for emergency care only can be directed to [phone] at any time.[facility] Allergies Active Allergy Reactions Criticality Noted Date Comments Sulfa (Sulfonamide Antibiotics) Nausea And Vomiting 01/30/2021 Medications Medication Sig Dispensed Refills Start Date End Date Status albuterol 90 mcg/actuation inhaler Inhale 2 puffs every 6 (six) hours as needed. 1 Active mometasone-formo terol (Dulera) 200-5 mcg/actuation inhaler Inhale 2 puffs 2 (two) times a day. 2 Active nortriptyline (PAMELOR) 10 mg capsule Take 20 mg by mouth at bedtime. 2 Active QUEtiapine (SEROquel) 25 mg tablet Take 25 mg by mouth at bedtime. 2 Active metroNIDAZOLE (METROCREAM) 0.75 % cream Apply 1 Application topically daily. 3 Active predniSONE (DELTASONE) 5 mg tabletIndication s:Sarcoidosis,Mo nitoring For Therapeutic Drug Therapy,Osteopen ia Take 6 tablets (30 mg total) by mouth daily for 28 days, THEN 5 tablets (25 mg total) daily for 28 days, THEN 4 tablets (20 mg total) daily for 28 days, THEN 3 tablets (15 mg total) daily for 28 days, THEN 2 tablets (10 mg total) daily for 14 days, THEN 1.5 tablets (7.5 mg total) daily for 14 days, THEN 1 tablet (5 mg total) daily for 14 days, THEN 0.5 tablets (2.5 mg total) daily for 14 days. 574 tablet 4 12/06/19 24 Active methotrexate 25 mg/mL injectionIndicat ions:Sarcoidosis ,Monitoring For Therapeutic Drug Therapy,Osteopen ia Inject 0.4 mL (10 mg total) under the skin once a week for 14 days, THEN 0.6 mL (15 mg total) once a week for 14 days, THEN 0.8 mL (20 mg total) once a week. Remember labs. 18.8 mL 4 12/16/19 24 Active needle, disp, 27 gauge 27 gauge x 1/2 needleIndication s:Sarcoidosis,Mo nitoring For Therapeutic Drug Therapy,Osteopen ia For methotrexate injections. 100 each 4 Active syringe, disposable, 1 mL syringeIndicatio ns:Sarcoidosis,M onitoring For Therapeutic Drug Therapy,Osteopen ia For methotrexate injections. 100 each 4 Active folic acid 1 mg tabletIndication s:Sarcoidosis,Mo nitoring For Therapeutic Drug Therapy,Osteopen ia Take 1 tablet (1 mg total) by mouth daily. 90 tablet 1 4 Active atovaquone (MEPRON) 750 mg/5 mL suspensionIndica tions:Sarcoidosi s,Monitoring For Therapeutic Drug Therapy,Osteopen ia Take 5 mL (750 mg total) by mouth 2 (two) times a day with meals. For PCP prophylaxis while prednisone dose is > 15 mg daily 300 mL 2 4 09/19/19 24 Active clobetasoL (TEMOVATE) 0.05 % ointment Apply 1 Application topically as needed. 1 06/11/19 24 Discontinued mycophenolate (CELLCEPT) 500 mg tablet Take 2 tablets (1,000 mg total) by mouth 2 (two) times a day. Take total with 250 mg tablets for total of 1250 mg twice per day 360 tablet 3 4 06/11/19 24 Discontinued mycophenolate (CELLCEPT) 250 mg capsule Take 1 capsule (250 mg total) by mouth 2 (two) times a day. 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 Sarcoidosis; Corticosteroid Treatment Mcc Systemic; Immunodeficiency Due To Drugs (HCC) Discharge Disposition: Home or Self Care 06/12/2023 12:01 PM CDT - 06/12/2023 12:55 PM CDT Hospital Encounter Department of Laboratory Medicine and Pathology, [address] [phone] Olivia Arreguin M.D. Sarcoidosis; Immunodeficiency Due To Drugs (HCC) Discharge Disposition: Home or Self Care 06/12/2023 12:00 PM CDT Hospital Encounter Department of Laboratory Medicine and Pathology, [address] [phone] Olivia Arreguin M.D. Sarcoidosis; Immunodeficiency Due To Drugs (HCC) Discharge Disposition: Home or Self Care 06/12/2023 11:30 AM CDT Education Division of Rheumatology in [place], [place] [address] [place] [phone] Olivia Arreguin M.D. Washnieski, Shane M, RSandieNSandie Sarcoidosis; Immunodeficiency Due To Drugs (HCC) 06/12/2023 10:15 AM CDT Comprehensive Visit Division of Rheumatology in [place], [place] [address] [place] [phone] Rajat Pizarro M.B.BSandieS. Sarcoidosis (Primary Dx); Corticosteroid Treatment Mcc Systemic; Immunodeficiency Due To Drugs (HCC); Elevated Alkaline Phosphatase 06/11/2023 9:00 AM CDT Clinical Communication Virtual Review in [place], [place] 200 [place] [address] Pre-visit Intake (INDIRA done 06/10 EE) 05/07/2023 Orders Only Division of Gastroenterology in [place], [place] [address] [place] [phone] Emeterio Friedman M.D. Genetic Susceptibility To Disease 05/02/2023 Orders Only Department of Cardiovascular Medicine in [address] [phone] Neisha Nolan APRN C.N.PSandie, M.S.N. Obstructive Sleep Apnea Adult (Primary Dx) 04/08/2023 Orders Only Department of Cardiovascular Medicine in [place], [place] [address] [place] [phone] Neisha Nolan APRN, C.N.P., M.S.N. 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 Sarcoid Myocarditis (HCC) (Primary Dx); Sarcoidosis 04/04/2023 8:40 AM HADOOP APPLICATION DEVELOPER - 04/04/2023 11:59 PM HADOOP APPLICATION DEVELOPER Hospital Encounter Department of Radiology, [facility], in [place], [place] [address] [place] [phone] Neisha Nolan APRN C.N.PSandie, M.S.N. Failure Heart (HCC) Discharge Disposition: Home or Self Care 04/04/2023 7:51 AM HADOOP APPLICATION DEVELOPER - 04/04/2023 8:39 AM HADOOP APPLICATION DEVELOPER Hospital Encounter Department of Laboratory Medicine and Pathology, [facility], in [place], [place] [address] [place] [address] Neisha Nolan APRN, C.N.P., M.S.N. Failure Heart (HCC) Discharge Disposition: Home or Self Care from Last 3 Months Family History Medical History Relation Name Comments Colon polyps Father Ramiro Coronary artery disease Father Ramiro Kidney disease Father Ramiro Born with onl y one kidney. Functioning at 40% at age 85. Ulcerative colitis Father Ramiro Lung cancer Maternal Grandmother Elizabeth Anxiety disorder Mother Joss Undiagnosed and untreated Migraines Mother Joss Ovarian cancer Mother Joss Thyroid disease Mother Joss Coronary artery disease Paternal Grandfather Salazar Breast cancer Paternal Grandmother Yenny Diabetes Paternal Grandmother Yenny Relation Name Status Comments Father Ramiro Maternal Grandmother Elizabeth Mother Joss Paternal Grandfather Salazar Paternal Grandmother Yenny Social History Tobacco Use Types Packs/Day Years Used Date Smoking Tobacco: Former Cigarettes 0.5 10 0 02/25/1994 - 02/26/2004 Passive Smoke Exposure: Past Smokeless Tobacco: Never Tobacco Cessation:Counseling Given: Not Answered Alcohol Use Standard Drinks/Week Comments Yes 2 (1 standard drink = 0.6 oz pur e alcohol) [facility] Answer Date Recorded In the past 12 months has e PT [employer], gas, oil, or water [employer] threatened to shut off services in your home? No 03/30/2023 Humiliation, Afraid, Rape, and Kick questionnair e [...] 11/22/2021 How often do you attend chur ch or buddhism services? More than 4 times per year 11/22/2021 Do you belong to any clubs o r organizations such as taoism groups, unions, fraternal or athletic groups, or [...] and heating? Not hard at all 11/22/2021 [facility] - Occupational [...] to strenuous exercise (like a brisk walk)? 0 days 03/30/2023 On average, how many minutes do you engage in exercise at this level? 0 min 03/30/2023 Hunger Vital Sign Answer Date Recorded Within the past 12 months, y ou worried that your food would run out before you got the money to buy more. Never true 03/30/19 24 Within the past 12 months, t he food you bought just didn't last and you didn't have money to get more. Never true 03/30/2023 PRAPARE - Transportation Answer Date Re corded In the past 12 months, has l ack of transportation kept you from medical appointments or from getting medications? No 04/2023 In the past 12 months, has l ack of transportation kept you from meetings, work, or from getting things needed for daily living? No 03/30/2023 Nutrition Answer Date Recorded Nutrition: EVOO Fat Source No 03/30 On average, how many serving s of fruits and vegetables do you eat per day (serving size is equal to 1 cup or approximately the size of a tennis ball)? 3-5 03/30/2023 Dental Answer Date Recorded Dental: Regular Dentist Yes 11/23/19 Employment Answer Date Recorded Employment status Employed and actively working without restrictions 03/30/2023 Housing Stability Answer Date Recorded What is your living situation today? I have a [facility] place to live 03/30/2023 Education Answer Date Recorded What is the highest level of school you have completed or the highest degree you have received? Master's degree (e.g., MA, MS, Arti, MEd, OFFICE SPECIALIST, [employer]) 11/22/2021 Sex and Gender Information Value Date Recorded Sex Assigned at Female 11/22/2021 11:24 PM CDT Gender Identity Female 11/22/2021 11:24 PM CDT Sexual Orientation Lesbian or Alonso 11/22/2021 11 :24 PM CDT Last Filed Vital Signs Vital Sign Reading Time Taken Comments Blood Pressure 153/85 04/04/2023 1:48 PM HADOOP APPLICATION DEVELOPER Pulse 82 04/04/2023 1:48 PM HADOOP APPLICATION DEVELOPER Temperature 35.1 ??C (95.2 ??F) 11/21/2021 7:47 AM CD T Respiratory Rate - - Oxygen Saturation 97% 11/21/2021 7:47 AM CDT Inhaled Oxygen Concentration - - Weight 106 kg (232 lb 14.7 oz) 04/04/2023 1:46 P M HADOOP APPLICATION DEVELOPER Height 171 cm (5' 7.32) 04/04/2023 1:46 PM HADOOP APPLICATION DEVELOPER Body Mass Index 36.13 04/04/2023 1:46 PM HADOOP APPLICATION DEVELOPER Plan of Treatment Health Maintenance Due Date Last Done Comments CT Colonography 1963 Cervical Cancer Screening 1965 Cologuard 1965 Colonoscopy 1963 Colorectal Cancer Screening 1963 FIT 1963 HIV Screening 1965 Depression Screening (Annual PHQ-2) 02/25/2023 Mammogram 06/19/2023 06/18/2022, 06/18/2022 Zoster Vaccines (2 of 2) 08/12/2023 06/17/2023 Fasting Glucose for Diabetes Screening 06/11/2026 06/12/2023, 04/04/2023, 06/05/2022, Additional history exists Lipid (Cholesterol) Screening 04/04/2028 04/04/2023, 05/28/2022, 05/22/2021 DTaP,Tdap,and Td Vaccines (3 - Td or Tdap) 08/15/2032 08/15/2022, 09/02/2013 Influenza Vaccine Completed 12/25/2022, , 04/21/2020 Pneumococcal vaccine (0-64 years) Completed 02/28/2023 COVID-19 Vaccine Completed 06/17/2023, , 12/31/2021, Additional history exists HPV Vaccines Aged Out No longer eligi ble based on patient's age to complete this topic Hepatitis B Vaccines Aged Out No long er eligible based on patient's age to complete this topic Procedures Procedure Name Priority Date/Time Associated Diagnosis Comments BMD BONE DENSITY SPINE HIPS RAD - Routine (most inpatients and all outpatients) 06/12/2023 1:34 PM CDT Sarcoidosis Corticosteroid Treatment Mcc Systemic Immunodeficiency Due To Drugs (HCC) DIPSTICK, U Routine 06/12/2023 12:31 PM CDT PH, U Routine 06/12/2023 12:31 PM CDT OSMOLALITY, U Routine 06/12/2023 12:31 PM CDT MICROSCOPIC AUTOMATED Routine 06/12/2023 12:31 PM CDT PROTEIN/CREATININE RATIO, RANDOM, URINE Routine 06/12/2023 12:31 PM CDT Sarcoidosis Immunodeficiency Due To Drugs (HCC) URINALYSIS WITH MICROSCOPIC Routine 06/12/2023 12:31 PM CDT Sarcoidosis Immunodeficiency Due To Drugs (HCC) CALCIUM, RANDOM, U Routine 06/12/2023 12:31 PM CDT Sarcoidosis Immunodeficiency Due To Drugs (HCC) C-REACTIVE PROTEIN (CRP), S/P Routine 06/12/2023 12:28 PM CDT Sarcoidosis Immunodeficiency Due To Drugs (HCC) COMPREHENSIVE METABOLIC PANEL, S/P Routine 06/12/2023 12:28 PM CDT Sarcoidosis Immunodeficiency Due To Drugs (HCC) HBC TOTAL AB, SERUM Routine 06/12/2023 12:28 PM CDT Sarcoidosis Immunodeficiency Due To Drugs (HCC) HBS ANTIBODY, SERUM Routine 06/12/2023 12:28 PM CDT Sarcoidosis Immunodeficiency Due To Drugs (HCC) SEDIMENTATION RATE, B Routine 06/12/2023 12:27 PM CDT Sarcoidosis Immunodeficiency Due To Drugs (HCC) 1,25-DIHYDROXYVITAMIN D, S Routine 06/12/2023 12:27 PM CDT Sarcoidosis Immunodeficiency Due To Drugs (HCC) 25-HYDROXYVITAMIN D2 AND D3, S Routine 06/12/2023 12:27 PM CDT Sarcoidosis Immunodeficiency Due To Drugs (HCC) CBC WITH DIFFERENTIAL, B Routine 06/12/2023 12:27 PM CDT Sarcoidosis Immunodeficiency Due To Drugs (HCC) HCV AB W/REFLEX TO HCV PCR, S Routine 06/12/2023 12:27 PM CDT Sarcoidosis Immunodeficiency Due To Drugs (HCC) HEPATITIS B SURFACE ANTIGEN Routine 06/12/2023 12:27 PM CDT Sarcoidosis Immunodeficiency Due To Drugs (HCC) GAMMA-GLUTAMYLTRANSFER ASE (GGT), S/P Routine 06/12/2023 12:22 PM CDT Elevated Alkaline Phosphatase DX CHEST AP OR PA AND LATERAL 2 VIEWS RAD - Routine (most inpatients and all outpatients) 04/04/2023 8:46 AM HADOOP APPLICATION DEVELOPER Failure Heart (HCC) ECG Routine 04/04/2023 8:26 AM HADOOP APPLICATION DEVELOPER Failure Heart (HCC) GLUCOSE, FASTING, S/P Routine 04/04/2023 8:01 AM HADOOP APPLICATION DEVELOPER Failure Heart (HCC) NT-PRO B-TYPE NATRIURETIC PEPTIDE (BNP), S Routine 04/04/2023 8:00 AM HADOOP APPLICATION DEVELOPER Failure Heart (HCC) POTASSIUM, S/P Routine 04/04/2023 8:00 AM HADOOP APPLICATION DEVELOPER Failure Heart (HCC) BICARBONATE, B/S/P Routine 04/04/2023 8: 00 AM HADOOP APPLICATION DEVELOPER Failure Heart (HCC) THYROID-STIMULATING HORMONE-SENSITIVE (S-TSH) Routine 04/04/2023 8:00 AM HADOOP APPLICATION DEVELOPER Failure Heart (HCC) CBC WITH DIFFERENTIAL, B Routine 04/04/2023 8:00 AM HADOOP APPLICATION DEVELOPER Failure Heart (HCC) LIPID PANEL, S Routine 04/04/2023 8:00 AM HADOOP APPLICATION DEVELOPER Failure Heart (HCC) BUN (BLOOD UREA NITROGEN), S/P Routine 04/04/2023 8:00 AM HADOOP APPLICATION DEVELOPER Failure Heart (HCC) ASPARTATE AMINOTRANSFERASE (AST), S/P Routine 04/04/2023 8:00 AM HADOOP APPLICATION DEVELOPER Failure Heart (HCC) CREATININE WITH EGFR, S/P Routine 04/04/2023 8:00 AM HADOOP APPLICATION DEVELOPER Failure Heart (HCC) SODIUM, S/P Routine 04/04/2023 8:00 AM HADOOP APPLICATION DEVELOPER Failure Heart (HCC) BI BREAST SCREENING BILATERAL WITH TOMOSYNTHESIS RAD - Routine (most inpatients and all outpatients) 06/18/2022 9:49 AM CDT from Last 3 Months or Most Recently Relevant to Health Maintenance Results * BMD Bone Density Spine Hips (06/12/2023 1:34 PM CDT) Anatomical Region Laterality Modality Hip, Lumbar Spine, Nuclear M edicine RST LOS, Musculoskeletal ARZ LOS, Muskuloskeletal FLA LOS N/A Radio graphic Imaging Impressions 06/12/2023 2:15 PM CDT Low bone density (Osteopenia) DualFemur (region: Neck Right) ?? Narrative 06/12/2023 2:15 PM CDT EXAM: ??BMD BONE DENSITY SPINE HIPS Bone Mineral Density (BMD) analysis performed on [employer] with serial number [id number]. ? FINDINGS: Left Hip: Femur Neck: BMD = 0.893 g/cm2 T-score = -1.0 ?Z-score = -0.6 Total Hip: BMD = 1.030 g/cm2 T-score = 0.2 ?Z-score = 0.3 Right Hip: Femur Neck: BMD = 0.874 g/cm2 T-score = -1.2 ?? Z-score = -0.7 Total Hip: BMD = 1.001 g/cm2 T-score = -0.1 ?Z-score = 0.0 Lumbar Spine: L1: BMD = 0.968 g/cm2 L2: BMD = 1.160 g/cm2 L3: BMD = 1.140 g/cm2 L4: BMD = 1.292 g/cm2 Total Lumbar Spine (L1-L3): BMD = 1.092 g/cm2 T-score = -0.7 ?Z-score = -0.7 ? Trabecular Bone Score: L1-L3: TBS = 1.582 < 1.23: low 1.23 -1.31: borderline ?? > 1.31: normal ?? A low TBS has been associated with increased risk of fractures in certain populations. TBS should not be used alone to determine treatment recommendations. It can be used in conjunction with BMD and FRAX to inform management. Please note: A more comprehensive DXA report, including images and graphs, is available in [employer]READS. In the absence of other causes of low BMD or demonstrated skeletal fragility, osteoporosis may be diagnosed in post-menopausal women and men at or above age 50 when the T-score is at or below -2.5 as defined by the WHO. Low bone density is present at T-scores between -1 and -2.5. The diagnosis in pre-menopausal women and men < age 50 can be based on low bone density or evidence of skeletal fragility in the appropriate clinical setting. Based on the bone density results, and on the patient's answers to the Fracture Risk Assessment questionnaire (please refer to appropriate image stored in the BMD study in [employer]), the calculated ten year probability of fracture is: FRAX Risk Factors: None FRAX (10 yr probability) adjusted for TBS: Major Osteoporotic Fracture: ??4.4 % Hip Fracture: ?0.2 % ? Procedure Note Scot Carrasco M.D. - 06/12/2023 EXAM: BMD BONE DENSITY SPINE HIPS Bone Mineral Density (BMD) analysis performed on [employer] with serialnumber [id number]. FINDINGS: Left Hip: Femur Neck: BMD = 0.893 g/cm2 T-score = -1.0 Z-score = -0.6 Total Hip: BMD = 1.030 g/cm2 T-score = 0.2 Z-score = 0.3 Right Hip: Femur Neck: BMD = 0.874 g/cm2 T-score = -1.2 Z-score = -0.7 Total Hip: BMD = 1.001 g/cm2 T-score = -0.1 Z-score = 0.0 Lumbar Spine: L1: BMD = 0.968 g/cm2 L2: BMD = 1.160 g/cm2 L3: BMD = 1.140 g/cm2 L4: BMD = 1.292 g/cm2 Total Lumbar Spine (L1-L3): BMD = 1.092 g/cm2 T-score = -0.7 Z-score = -0.7 Trabecular Bone Score: L1-L3: TBS = 1.582 < 1.23: low 1.23 -1.31: borderline > 1.31: normal A low TBS has been associated with increased risk of fractures in certainpopulations. TBS should not be used alone to determine treatmentrecommendations. It can be used in conjunction with BMD and FRAX to informmanagement. Please note: A more comprehensive DXA report, including images and graphs,is available in QREADS. In the absence of other causes of low BMD or demonstrated skeletalfragility, osteoporosis may be diagnosed in post-menopausal women and menat or above age 50 when the T-score is at or below -2.5 as defined by theWHO. Low bone density is present at T-scores between -1 and -2.5. The diagnosis in pre-menopausal women andmen < age 50 can be based on low bone density or evidence of skeletalfragility in the appropriate clinical setting. Based on the bone density results, and on the patient's answers to theFracture Risk Assessment questionnaire (please refer to appropriate imagestored in the BMD study in [employer]READS), the calculated ten year probability offracture is: FRAX Risk Factors: None FRAX (10 yr probability) adjusted for TBS: Major Osteoporotic Fracture: 4.4 % Hip Fracture: 0.2 % IMPRESSION: Low bone density (Osteopenia) DualFemur (region: Neck Right) Olivia Arreguin M.D. IMG DXA PROCED URES * Dipstick, Urine (06/12/2023 12:31 PM CDT) Hemoglobin, QL, U Negative Negative 06/12/2023 1:24 PM CDT DTL Leukocyte Esterase, U Negative Negative 06/12/2023 1:24 PM CDT DTL Nitrite, U Negative Negative 06/12/2023 1:24 PM CDT DTL Ketone, U Negative Negative mg/dL 06/12/2023 1:24 PM CDT DTL Glucose, U Negative Negative mg/dL 06/12/2023 1:24 PM CDT DTL Urine 06/12/2023 12:3 1 PM CDT 06/12/2023 12:53 PM CDT Olivia Arreguin M.D. LAB URINE ALEXANDER OLSEN [facility] [address] [place] [address], [facility] [address] [place] [address] * Microscopic Automated (06/12/2023 12:31 PM CDT) Microscopy Normal 06/12/2023 1:24 PM CDT DTL RBC None Seen <3 /hpf 06/12/2023 1:24 PM CDT DTL WBC 1-3 /hpf 06/12/2023 1:24 PM CDT DTL Comment: ----REFERENCE VALUE---- <4 ??(Males) <11 (Females) Casts, Hyaline 1-3 /lpf 06/12/2023 1:24 PM CDT DTL Crystals SEE COMMENT 06/12/2023 1:24 PM CDT DTL Comment:Calcium Oxalate kayla tals present Urine 06/12/2023 12:3 1 PM CDT 06/12/2023 12:53 PM CDT Olivia Arreguin M.D. LAB URINE ALEXANDER OLSEN Performing Organization Address [facility]/ZIP Co de Phone Number [facility] [address] [place] [address], [facility] [address] [place] [address] * pH, Urine (06/12/2023 12:31 PM CDT) pH, U 5.8 4.5 - 8.0 06/12/2023 1:4 8 PM CDT DTL Urine 06/12/2023 12:3 1 PM CDT 06/12/2023 12:53 PM CDT Olivia Arreguin M.D. LAB URINE ALEXANDER OLSEN Performing Organization Address City/[facility]/ZIP Co de Phone Number [facility] [address] [place] [address], [facility] [address] [place] [address] * Protein/Creatinine Ratio, Random, Urine (06/12/2023 12:31 PM CDT) Protein, Total, Random, U 17 mg/dL 06/12/2023 1:43 PM CDT DTL Creatinine, Random, U 259 16 - 326 mg/dL 06/12/2023 1:43 PM CDT DTL Protein/Creatin ine Ratio 0.07 <0.18 mg/mg 06/12/2023 1:43 PM CDT DTL Urine (Urine, Midstream) 06/12/2023 12:31 PM CDT 06/12/2023 12:53 PM CDT Olivia Arreguin M.D. LAB URINE ALEXANDER OLSEN Performing Organization Address City/[facility]/ZIP Co de Phone Number [facility] [address] [place] [address], [facility] [address] [place] [address] * Osmolality, Urine (06/12/2023 12:31 PM CDT) Pathologist [facility] Osmolality, U 804 150 - 1150 mOsm/kg 06/12/2023 1:48 PM CDT DT Urine 06/12/2023 12:3 1 PM CDT 06/12/2023 12:53 PM CDT Olivia Arreguin M.D. LAB URINE ALEXANDER OLSEN [facility] [address] [place] [address], [facility] [address] [place] [address] * Calcium/Creatinine Ratio, Random, Urine (06/12/2023 12:31 PM CDT) Calcium/Creat Ratio, Random, U 0.08 0.05 - 0.27 mg/mg 06/12/2023 1:43 PM CDT DTL Calcium, Random, U 22 mg/dL 06/12/2023 1:43 PM CDT DTL Creatinine, Random, U 259 16 - 326 mg/dL 06/12/2023 1:43 PM CDT DTL Urine (Urine, Midstream) 06/12/2023 12:31 PM CDT 06/12/2023 12:53 PM CDT Olivia Arreguin M.D. LAB URINE ALEXANDER OLSEN [facility] [address] [place] [address], [facility] DTL [facility] [address] [place] [address] * Urinalysis, with Microscopic: Urine, Midstream (06/12/2023 12:31 PM CDT) Source Urine, Urine, Midstream 06/12/2023 12:53 PM CDT DTL Color, U Yellow 06/12/2023 12:53 PM CDT DTL Clarity, U Clear 06/12/2023 12:53 PM CDT DTL Protein, U 17 <26 mg/dL 06/12/2023 1:43 PM CDT DTL Protein/Osmol ality 0.21 <0.42 ratio 06/12/2023 1:48 PM CDT DTL Predicted 24 HR Protein, U 163 <229 mg/24 h 06/12/2023 1:48 PM CDT DTL Predicted Range 40-661 mg/24 h 06/12/2023 1:48 PM CDT DTL Urine (Urine, Midstream) 06/12/2023 12:31 PM CDT 06/12/2023 12:53 PM CDT Olivia Arreguin M.D. LAB URINE ALEXANDER OLSEN Performing Organization Address City/[facility]/ZIP Co de Phone Number [facility] [address] [place] [address], [place] DTL [facility] [address] [place] [address] * HBc Total Ab, Serum (06/12/2023 12:28 PM CDT) [facility] HBc Total Ab, S Negative Negative 06/12/2023 8:08 PM CDT [facility] Blood (Blood, Venous) 06/12/2023 12:28 PM CDT 06/12/2023 4:50 PM CDT Olivia Arreguin M.D. LAB MICROBIOLO GY - BLOOD ORDERABLES Performing Organization Address [facility] Co de Phone Number [facility] [address] [place] [address] [facility] [address] [place] [address] * HBs Antibody, Serum (06/12/2023 12:28 PM CDT) [place] Hospital HBs Antibody, S Negative 06/12/2023 8:08 PM CDT [facility] Comment: Patient is presumed to be not immune to infection with HBV. ----REFERENCE VALUE---- Unvaccinated: Negative Vaccinated: Positive HBs Antibody, Quantitative, S <5.0 mIU/mL 06/12/2023 8:08 PM CDT [facility] Comment: ----REFERENCE VALUE---- Unvaccinated: <5.0 Vaccinated: >=12.0 Blood (Blood, Venous) 06/12/2023 12:28 PM CDT 06/12/2023 4:50 PM CDT Olivia Arreguin M.D. LAB MICROBIOLO GY - BLOOD ORDERABLES Performing Organization Address [facility] Co de Phone Number [facility] [address] [place] [address] [facility] [address] [place] [address] * (ABNORMAL) CRP (C-Reactive Protein) (06/12/2023 12:28 PM CDT) [facility] C-Reactive Protein (CRP), S 5.2(H) <5.0 mg/L 06/12/2023 1:27 PM CDT DTL Blood (Blood, Venous) 06/12/2023 12:28 PM CDT 06/12/2023 1:04 PM CDT Olivia Arreguin M.D. LAB BLOOD ADD- ON [facility] [address] [place] [address], [facility] DTL [facility] [address] [place] [address] * (ABNORMAL) Comprehensive Metabolic Panel (06/12/2023 12:28 PM CDT) [facility] Potassium, S 4.2 3.6 - 5.2 mmol/L 06/12/2023 1:27 PM CDT DTL Sodium, S 142 135 - 145 mmol/L 06/12/2023 1:27 PM CDT DTL Chloride, S 103 98 - 107 mmol/L 06/12/2023 1:27 PM CDT DTL Bicarbonate, S 29 22 - 29 mmol/L 06/12/2023 1:27 PM CDT DTL Anion Gap 10 7 - 15 06/12/2023 1:27 PM CDT DTL BUN (Blood Urea Nitrogen), S 12 6 - 21 mg/dL 06/12/2023 1:27 PM CDT DTL Creatinine 1.07(H) 0.59 - 1.04 mg/dL 06/12/2023 1:27 PM CDT DTL Estimated GFR (eGFR) 59(L) >=60 mL/min/BS A 06/12/2023 1:27 PM CDT DTL Comment: Estimated GFR calculated using the 2020 CKD_EPI creatinine equation. Calcium, Total, S 9.8 8.8 - 10.2 mg/dL 06/12/2023 1:27 PM CDT DTL Glucose, S 89 70 - 140 mg/dL 06/12/2023 1:27 PM CDT DTL Protein, Total, S 6.6 6.3 - 7.9 g/dL 06/12/2023 1:27 PM CDT DTL Albumin, S 4.4 3.5 - 5.0 g/dL 06/12/2023 1:27 PM CDT DTL Aspartate Aminotransferase (AST), S 17 8 - 43 U/L 06/12/2023 1:27 PM CDT DTL Alkaline Phosphatase, S 110(H) 35 - 104 U/L 06/12/2023 1:27 PM CDT DTL Alanine Aminotransferase (ALT), S 16 7 - 45 U/L 06/12/2023 1:27 PM CDT DTL Bilirubin, Total, S 0.6 0.0 - 1.2 mg/dL 06/12/2023 1:27 PM CDT DTL Blood (Blood, Venous) 06/12/2023 12:28 PM CDT 06/12/2023 1:04 PM CDT Olivia Arreguin M.D. LAB BLOOD ADD- ON [facility] [address] [place] [address], [facility] [address] [place] [address] * HCV Ab w/Reflex to HCV PCR, Serum (06/12/2023 12:27 PM CDT) Pathologist [facility] HCV Ab, S Negative Negative 06/14/2023 10:56 AM CDT [facility] Comment: Consumption of high-dose biotin supplement within 12 hours of blood collection for this test can cause false-negative results. Blood (Blood, Venous) 06/12/2023 12:27 PM CDT 06/12/2023 4:50 PM CDT Olivia Arreguin M.D. LAB MICROBIOLO GY - BLOOD ORDERABLES [facility] [address] [place] [address] [facility] [address] [place] [address] * 1,25-Dihydroxyvitamin D (06/12/2023 12:27 PM CDT) Pathologist [facility] 1, 25 DIHYDROXYVITAMIN D, S 41 18 - 78 pg/mL 06/14/2023 2:01 PM CDT [facility] Comment: ----ADDITIONAL INFORMATION---- This test was developed and its performance characteristics determined by [facility] in a manner consistent with CLIA requirements. This test has not been cleared or approved by the U.S. Food and Drug Administration. Blood (Blood, Venous) 06/12/2023 12:27 PM CDT 06/13/2023 7:43 AM CDT Olivia Arreguin M.D. LAB BLOOD ADD- ON Performing Organization Address City/[facility]/ZIP Co de Phone Number [facility] [address] [place] [address] [facility] [address] [place] [address] [place] [address] * (ABNORMAL) 25-Hydroxyvitamin D2 and D3 (06/12/2023 12:27 PM CDT) [facility] 25-Hydroxy D2 <4.0 ng/mL 06/17/2023 1:31 PM CDT [facility] 25-Hydroxy D3 16 ng/mL 06/17/2023 1:31 PM CDT [facility] 25-Hydroxy D Total 16(L) ng/mL 2023 1:31 PM CDT [facility] Comment: Interpretation: 10-19 ng/mL (mild to moderate deficiency) ----REFERENCE VALUE---- 25-HYDROXY D TOTAL (D2+D3) Optimum levels in the healthy population are 20-50, patients with bone disease may benefit from higher levels within this range. ----ADDITIONAL INFORMATION---- This test was developed and its performance characteristics determined by [facility] in a manner consistent with CLIA requirements. This test has not been cleared or approved by the U.S. Food and Drug Administration. Blood (Blood, Venous) 06/12/2023 12:27 PM CDT 06/13/2023 7:17 AM CDT Olivia Arreguin M.D. LAB BLOOD ADD- ON Performing Organization Address City/[facility]/ZIP Co de Phone Number [facility] [address] [place] [address] [facility] [address] [place] [address] [place] [address] * Hepatitis B Surface Antigen (06/12/2023 12:27 PM CDT) Pathologist [facility] HBs Antigen, S Negative Negative 06/14/2023 10:56 AM CDT [facility] Blood (Blood, Venous) 06/12/2023 12:27 PM CDT 06/12/2023 4:50 PM CDT Olivia Arreguin M.D. LAB MICROBIOLO GY - BLOOD ORDERABLES Performing Organization Address City/[facility]/ZIP Co de Phone Number [facility] [address] [place] [address] [facility] [address] [place] [address] * Sedimentation Rate (06/12/2023 12:27 PM CDT) Pathologist [facility] Sedimentation Rate, B 16 2 - 22 mm/h 06/12/2023 1:57 PM CDT DTL Blood (Blood, Venous) 06/12/2023 12:27 PM CDT 06/12/2023 12:51 PM CDT Olivia Arreguin M.D. LAB BLOOD ADD- ON Performing Organization Address City/[facility] Co de Phone Number [facility] [address] [place] [address], [facility] [address] [place] [address] * (ABNORMAL) CBC with Differential, Blood (06/12/2023 12:27 PM CDT) Only the most recent of2 resultswithin the time period is included. Pathologist [facility] Hemoglobin 13.4 11.6 - 15.0 g/dL 06/12/2023 1:01 PM CDT DTL Hematocrit 42.1 35.5 - 44.9 % 06/12/2023 1:01 PM CDT DTL Erythrocytes 5.20(H) 3.92 - 5.13 x10(12)/L 06/12/2023 1:01 PM CDT DTL MCV 81.0 78.2 - 97.9 fL 06/12/2023 1:01 PM CDT DTL RBC Distrib Width 14.2 12.2 - 16.1 % 06/12/2023 1:01 PM CDT DTL Platelet Count 227 157 - 371 x10(9)/L 06/12/2023 1:01 PM CDT DTL Leukocytes 5.8 3.4 - 9.6 x10(9)/L 06/12/2023 1:01 PM CDT DTL Neutrophils 4.36 1.56 - 6.45 x10(9)/L 06/12/2023 1:01 PM CDT [facility] Lymphocytes 0.47(L) 0.95 - 3.07 x10(9)/L 06/12/2023 1:01 PM CDT DTL Monocytes 0.62 0.26 - 0.81 x10(9)/L 06/12/2023 1:01 PM CDT DTL Eosinophils 0.29 0.03 - 0.48 x10(9)/L 06/12/2023 1:01 PM CDT DTL Basophils 0.06 0.01 - 0.08 x10(9)/L 06/12/2023 1:01 PM CDT DTL Blood (Blood, Venous) 06/12/2023 12:27 PM CDT 06/12/2023 12:51 PM CDT Olivia Arreguin M.D. LAB BLOOD ADD- ON [facility] [address] [place] [address], [facility] DTL [facility] [address] [place] [address] [facility] [place] [address] [place] [address] * GGT (Gamma-Glutamyltransferase) (06/12/2023 12:22 PM CDT) Gamma Glutamyltransferase (GGT), S 10 5 - 36 U/L 06/12/2023 6:19 PM CDT DTL Blood (Blood, Venous) 06/12/2023 12:22 PM CDT 06/12/2023 5:18 PM CDT Olivia Arreguin M.D. LAB BLOOD ADD- ON [facility] [address] [place] [address], [place] [facility] [address] [place] [address] * DX Chest AP or PA and Lateral 2 Views (04/04/2023 8:46 AM HADOOP APPLICATION DEVELOPER) Anatomical Region Laterality Modality Chest, Thoracic RST LOS, Tho racic ARZ LOS, Thoracic FLA LOS N/A Digital Radiography Impressions 04/04/2023 9:32 AM HADOOP APPLICATION DEVELOPER Patchy perihilar nodularity with mild hilar adenopathy. Findings are unchanged since 08/15/2021 and would be consistent with sarcoidosis. Heart size at upper limits of normal. Calcified and tortuous aorta. Abdominal surgical clips. Narrative 04/04/2023 9:32 AM HADOOP APPLICATION DEVELOPER EXAM: ??DX CHEST AP OR PA AND LATERAL 2 VIEWS Procedure Note Jovanni Phillip M.D. - 04/04/2023 EXAM: DX CHEST AP OR PA AND LATERAL 2 VIEWS IMPRESSION: Patchy perihilar nodularity with mild hilar adenopathy. Findings areunchanged since 08/15/2021 and would be consistent with sarcoidosis. Heartsize at upper limits of normal. Calcified and tortuous aorta. Abdominalsurgical clips. Neisha Nolan APRN, C.N.P., M.S.N. IMG D IAGNOSTIC IMAGING PROCEDURES * ECG 12 Lead (04/04/2023 8:26 AM HADOOP APPLICATION DEVELOPER) Ventricular Rate ECG/Min 77 BPM MUSE OK Interval 166 ms MUSE QRSD Interval 136 ms MUSE QT Interval 424 ms MUSE QTC Interval 479 ms MUSE P [place] 45 degrees MUSE R [place] -12 degrees MUSE T Wave [place] 126 degrees MUSE 04/04/2023 8:26 AM HADOOP APPLICATION DEVELOPER 04/04/2023 8:35 AM HADOOP APPLICATION DEVELOPER Impressions MUSE - 04/04/2023 8:35 AM HADOOP APPLICATION DEVELOPER Normal sinus rhythm Left bundle branch block with secondary ST-T abnormalities When compared with ECG of 22-NOV-2021 11:50, Left bundle branch block is now present Reviewed by ARIANA Wilder Narrative Procedure Note Tangela Arenas M.D., Ph.D. - 04/04/2023 IMPRESSION: Normal sinus rhythm Left bundle branch block with secondary ST-T abnormalities When compared with ECG of 22-NOV-2021 11:50, Left bundle branch block is now present Reviewed by ARIANA Wilder Neisha Nolan APRN, C.N.P., M.S.N. ECG O RDERABLES MUSE NA * Glucose, Fasting (04/04/2023 8:01 AM HADOOP APPLICATION DEVELOPER) Glucose, P 85 70 - 100 mg/dL 04/04/2023 8:59 AM HADOOP APPLICATION DEVELOPER DTL Last Intake 1 hr 04/04/2023 8:41 AM HADOOP APPLICATION DEVELOPER DTL Blood (Blood, Venous) 04/04/2023 8:01 AM HADOOP APPLICATION DEVELOPER 04/04/2023 8:41 AM HADOOP APPLICATION DEVELOPER Neisha Nolan APRN, C.N.P., M.S.N. LAB B LOOD NON ADD-ON [facility] [address] [place] [address], [facility] [address] [place] [address] * (ABNORMAL) Lipid Panel (04/04/2023 8:00 AM HADOOP APPLICATION DEVELOPER) Triglycerides 144 mg/dL 04/04/2023 9:16 AM HADOOP APPLICATION DEVELOPER DTL Comment: ----REFERENCE VALUE---- Normal: <150 mg/dL Borderline High: 150-199 mg/dL High: 200-499 mg/dL Very High: > or =500 mg/dL Cholesterol, Total 180 mg/dL 2023 9:16 AM HADOOP APPLICATION DEVELOPER DTL Comment: ----REFERENCE VALUE---- Desirable: < 200 mg/dL Borderline High: 200 - 239 mg/dL High: > or = 240 mg/dL Cholesterol, LDL, Calculated 107 mg/dL 04/04/2023 9:16 AM HADOOP APPLICATION DEVELOPER DTL Comment: ----REFERENCE VALUE---- Desirable: <100 mg/dL Above Desirable: 100-129 mg/dL Borderline High: 130-159 mg/dL High: 160-189 mg/dL Very High: >=190 mg/dL ----ADDITIONAL INFORMATION---- LDL cholesterol calculated using the Gardner/NIH equation. Cholesterol, HDL, S 48(L) >=50 mg/dL 04/04/2023 9:16 AM HADOOP APPLICATION DEVELOPER DTL Cholesterol, Non-HDL, Calculated 132 mg/dL 04/04/2023 9:16 AM HADOOP APPLICATION DEVELOPER DTL Comment: ----REFERENCE VALUE---- Desirable: <130 mg/dL Above Desirable: 130-159 mg/dL Borderline High: 160-189 mg/dL High: 190-219 mg/dL Very High: > or =220 mg/dL Fasting (8 HR or more) No 04/04/2023 8:41 AM HADOOP APPLICATION DEVELOPER DTL Blood (Blood, Venous) 04/04/2023 8:00 AM HADOOP APPLICATION DEVELOPER 04/04/2023 8:41 AM HADOOP APPLICATION DEVELOPER Neisha Nolan APRN C.N.P., M.S.N. LAB B LOOD ADD-ON [facility] [address] [place] [address], [facility] [address] [place] [address] * NT-Pro B-Type Natriuretic Peptide (BNP) (04/04/2023 8:00 AM HADOOP APPLICATION DEVELOPER) NT-Pro BNP 151 <=226 pg/mL 04/04/2023 9:16 AM HADOOP APPLICATION DEVELOPER DTL Comment: NT-proBNP values less than 300 pg/mL have a 99% negative predictive value for excluding acute congestive heart failure. A cutoff of 1200 pg/mL for patients with an eGFR<60 yields a diagnostic sensitivity and specificity of 89% and 72% for acute congestive heart failure. A diagnostic NT-proBNP cutoff of 900 pg/mL has been suggested in adults 50-75 years of age in the absence of renal failure. Blood (Blood, Venous) 04/04/2023 8:00 AM HADOOP APPLICATION DEVELOPER 04/04/2023 8:41 AM HADOOP APPLICATION DEVELOPER Neisha Nolan APRN, C.N.P., M.S.N. LAB B LOOD ADD-ON Performing Organization Address City/[facility] de Phone Number [facility] [address] [place] [address] * BUN (Blood Urea Nitrogen) (04/04/2023 8:00 AM HADOOP APPLICATION DEVELOPER) BUN (Blood Urea Nitrogen), S 12 6 - 21 mg/dL 04/04/2023 9:16 AM HADOOP APPLICATION DEVELOPER DT Blood (Blood, Venous) 04/04/2023 8:00 AM HADOOP APPLICATION DEVELOPER 04/04/2023 8:41 AM HADOOP APPLICATION DEVELOPER Neisha Nolan APRN, C.N.P., M.S.N. LAB B LOOD ADD-ON Performing Organization Address [facility] de Phone Number [facility] [address] [place], [place] [address] [place] [id number] * AST (Aspartate Aminotransferase) (04/04/2023 8:00 AM HADOOP APPLICATION DEVELOPER) Aspartate Aminotransferase (AST), S 18 8 - 43 U/L 04/04/2023 9:16 AM HADOOP APPLICATION DEVELOPER DTL Blood (Blood, Venous) 04/04/2023 8:00 AM HADOOP APPLICATION DEVELOPER 04/04/2023 8:41 AM HADOOP APPLICATION DEVELOPER Neisha Nolan APRN, C.N.P., M.S.N. LAB B LOOD ADD-ON [facility] [address] [place], [place] [address] [place] [address] 200 [place] [address] * S-TSH (Thyroid-Stimulating Hormone - Sensitive) (04/04/2023 8:00 AM HADOOP APPLICATION DEVELOPER) TSH, Sensitive 3.2 0.3 - 4.2 mIU/L 04/04/2023 9:16 AM HADOOP APPLICATION DEVELOPER DTL Blood (Blood, Venous) 04/04/2023 8:00 AM HADOOP APPLICATION DEVELOPER 04/04/2023 8:41 AM HADOOP APPLICATION DEVELOPER Neisha Nolan APRN, C.N.P., M.S.N. LAB B LOOD ADD-ON Performing Organization Address City/[facility]/ZIP Co de Phone Number [facility] [address] [place] [id number] [place] [address] [address] [place] [address] * Sodium (04/04/2023 8:00 AM HADOOP APPLICATION DEVELOPER) Sodium, S 145 135 - 145 mmol/L 04/04/2023 9:16 AM HADOOP APPLICATION DEVELOPER DT Blood (Blood, Venous) 04/04/2023 8:00 AM HADOOP APPLICATION DEVELOPER 04/04/2023 8:41 AM HADOOP APPLICATION DEVELOPER Yas Schultz APRNNJae., M.S.N. LAB B LOOD ADD-ON [facility] [address] [place], [place] [address] [place] [address] 200 [place] [address] * (ABNORMAL) Potassium (04/04/2023 8:00 AM HADOOP APPLICATION DEVELOPER) Potassium, S 3.4(L) 3.6 - 5.2 mmol/L 04/04/2023 9:16 AM HADOOP APPLICATION DEVELOPER DTL Blood (Blood, Venous) 04/04/2023 8:00 AM HADOOP APPLICATION DEVELOPER 04/04/2023 8:41 AM HADOOP APPLICATION DEVELOPER Neisha Nolan APRN, C.N.P., M.S.N. LAB B LOOD ADD-ON [facility] [address] [place] [address] * Creatinine with Estimated GFR (04/04/2023 8:00 AM HADOOP APPLICATION DEVELOPER) Creatinine 0.95 0.59 - 1.04 mg/dL 04/04/2023 9:16 AM HADOOP APPLICATION DEVELOPER DTL Estimated GFR (eGFR) 69 >=60 mL/min/BSA 04/04/2023 9:16 AM HADOOP APPLICATION DEVELOPER DTL Comment: Estimated GFR calculated using the 2020 CKD_EPI creatinine equation. Blood (Blood, Venous) 04/04/2023 8:00 AM HADOOP APPLICATION DEVELOPER 04/04/2023 8:41 AM HADOOP APPLICATION DEVELOPER Neisha Nolan APRN, C.N.P., M.S.N. LAB B LOOD ADD-ON Performing Organization Address City/[facility]/ZIP Co de Phone Number [facility] [address] [place], [place] [phone] [place] [address] 200 [place] [address] * Bicarbonate (04/04/2023 8:00 AM HADOOP APPLICATION DEVELOPER) Bicarbonate, S 29 22 - 29 mmol/L 04/04/2023 9:16 AM HADOOP APPLICATION DEVELOPER DTL Blood (Blood, Venous) 04/04/2023 8:00 AM HADOOP APPLICATION DEVELOPER 04/04/2023 8:41 AM HADOOP APPLICATION DEVELOPER Neisha Nolan APRN, C.N.P., M.S.N. LAB B LOOD ADD-ON [facility] [address] [facility] [address] [place] [address] from Last 3 Months or Most Recently Relevant to Health Maintenance
--- OUTSIDE RECORDS SUMMARY | 2023-06-29 19:06 | XMS_ITS | Encounter Summary ---
Author Name Unknown Organization [facility] Address [address] [place] [id number] Care Team Providers Care Organ Recovery Coordinator Name Role Phone Unavailable Primary Care Provider Unavailabl e Reason for Visit * Reason Onset Date Comments Pre-visit Intake 06/11/2023 INDIRA done 06/10 E EF Encounter Details Date Type Department Care Team (Latest Contact Info) Description 06/11/2023 9:00 AM CDT Clinical Communication Virtual Review in [place], [place] [address] [place] [address] Pre-visit Intake (INDIRA done 06/10 EEF) Social History Tobacco Use Types Packs/Day Years Used Date Smoking Tobacco: Former Cigarettes 0.5 10 0 02/25/1994 - 02/26/2004 Passive Smoke Exposure: Past Smokeless Tobacco: Never Tobacco Cessation:Counseling Given: Not Answered Alcohol Use Standard Drinks/Week Comments Yes 2 (1 standard drink = 0.6 oz pur e alcohol) [facility] Utilities Answer Date Recorded In the past [address] [facility] [employer], [employer], oil, or water [employer] threatened to shut off services in your [...] week 11/22/2021 How often do you attend [facility] or yarsanism services? More than 4 times per year 11/22/2021 Do you belong to any clubs o r organizations such as caodaism groups, unions, fraternal or athletic groups, or [...] and heating? Not hard at all 11/22/2021 [facility] - Occupational Stress [...] money to buy more. Never true 03/30/19 Within the past 12 months, t he [...] your living situation today? I have a [facility] place to live 03/30/2023 Education Answer Date Recorded What is the highest level of school you have completed or the highest degree you have received? Master's degree (e.g., MA, MS, Arti, MEd, BEER [employer], GALA) 11/22/2021 Sex and Gender Information Value Date Recorded Sex Assigned at Female 11/22/2021 11:24 PM CDT Gender Identity Female 11/22/2021 11:24 PM CDT Sexual Orientation Lesbian or Alonso 11/22/2021 11 :24 PM CDT documented as of this encounter Plan of Treatment Not on file documented as of this encounter Visit Diagnoses Not on filedocumented in this encounter
--- OUTSIDE RECORDS SUMMARY | 2023-06-29 19:06 | XMS_ITS | Referral Summary ---
Author Name Unknown Organization [facility] Address [address] [place] [address] Care Team Providers Care Copy Director Name Role Phone Unavailable Primary Care Provider Unavailabl e Source Comments Patient records contain information from all sites at [facility]. For routine questions regarding patient records, call [phone] during business hours, M-F 8:00 AM - 5:00 PM Central Time. Record requests for emergency care only can be directed to [phone] at any time.[facility] Encounters Date Type Department Care Team Description 06/21/2023 Documentation Division of Rheumatology in [place], [place] [address] [place] [phone] Rajat Pizarro M.B.B.S. 06/12/2023 11:30 AM CDT Education Division of Rheumatology in [address] [phone] Olivia Arreguin M.D. Washnieski, Shane M, R.N. Sarcoidosis; Immunodeficiency Due To Drugs (HCC) 06/12/2023 12:01 PM CDT - 06/12/2023 12:55 PM CDT Hospital Encounter Department of Laboratory Medicine and Pathology, [facility] in [place], [place] [address] [place] [phone] Olivia Arreguin M.D. Sarcoidosis; Immunodeficiency Due To Drugs (HCC) Discharge Disposition: Home or Self Care 06/12/2023 12:56 PM CDT - 06/12/2023 11:59 PM CDT Hospital Encounter Department of Radiology, [facility] in [place], [place] [address] [place] [phone] Olivia Arreguin M.D. Sarcoidosis; Corticosteroid Treatment Residential Systemic; Immunodeficiency Due To Drugs (HCC) Discharge Disposition: Home or Self Care 06/12/2023 12:00 PM CDT Hospital Encounter Department of Laboratory Medicine and Pathology, [facility] in [place], [place] [address] [place] [phone] Olivia Arreguin M.D. Sarcoidosis; Immunodeficiency Due To Drugs (HCC) Discharge Disposition: Home or Self Care 06/12/2023 10:15 AM CDT Comprehensive Visit Division of Rheumatology in [address] [phone] Rajat Pizarro M.B.BSandieSSandie Sarcoidosis (Primary Dx); Corticosteroid Treatment Body Trimmer Systemic; Immunodeficiency Due To Drugs (HCC); Elevated Alkaline Phosphatase 06/11/2023 9:00 AM CDT Clinical Communication Virtual Review in [address] [phone] Pre-visit Intake (INDIRA done 06/10 EE) 05/07/2023 Orders Only Division of Gastroenterology in [address] [phone] Emeterio Friedman M.D. Genetic Susceptibility To Disease 05/02/2023 Orders Only Department of Cardiovascular Medicine in [address] [phone] Neisha Nolan APRN, C.N.PSandie, M.S.N. Obstructive Sleep Apnea Adult (Primary Dx) 04/08/2023 Orders Only Department of Cardiovascular Medicine in [address] [phone] Neisha Nolan APRN, C.N.P., M.S.N. Apnea Sleep Obstructive (Primary Dx); Sarcoid Myocarditis (HCC) 04/04/2023 8:40 AM ACTUARY MANAGER - 04/04/2023 11:59 PM ACTUARY MANAGER Hospital Encounter Department of Radiology, [facility], in [place], [place] [address] [place] [phone] Neisha Nolan APRN, C.NCher, M.S.N. Failure Heart (HCC) Discharge Disposition: Home or Self Care 04/04/2023 7:51 AM ACTUARY MANAGER - 04/04/2023 8:39 AM ACTUARY MANAGER Hospital Encounter Department of Laboratory Medicine and Pathology, [facility], in [place], [place] [address] [place] [address] Neisha Nolan APRN, C.N.P., M.S.N. Failure Heart (HCC) Discharge Disposition: Home or Self Care 04/04/2023 2:00 PM ACTUARY MANAGER Office Visit Department of Cardiovascular Medicine in [place], [place] [address] [place] [address] Neisha Nolan APRN, C.N.Cheryl., M.S.N. Sarcoid Myocarditis (HCC) (Primary Dx); Sarcoidosis from Last 3 Months Allergies Active Allergy Reactions Criticality Noted Date [...] Problem Noted Date Diagnosed Date Corticosteroid Treatment Body Trimmer Systemic 05/26 Immunodeficiency Due To Drugs 06/12/2023 Sarcoidosis 11/21/2021 Lung Interstitial Disease 11/21/2021 Social History Tobacco Use Types Packs/Day Years Used Date Smoking Tobacco: Former Cigarettes 0.5 10 0 02/25/1994 - 02/26/2004 Passive Smoke Exposure: Past Smokeless Tobacco: Never Tobacco Cessation:Counseling Given: Not Answered Alcohol Use Standard Drinks/Week Comments Yes 2 (1 standard drink = 0.6 oz pur e alcohol) [facility] [employer] Answer Date Recorded In the past 12 months has e [employer], gas, oil, or water [email or web address] threatened to shut off services in your [...] often do you attend chur ch or anabaptism services? More than 4 times per year 11/22/2021 Do you belong to any clubs o r organizations such as samaritan groups, unions, fraternal or athletic groups, or [...] and heating? Not hard at all 11/22/2021 [facility] [place] of Occupat ional Health - Occupational Stress [...] your living situation today? I have a [facility] place to live 03/30/2023 Education Answer Date Recorded What is the highest level of school you have completed or the highest degree you have received? 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, [employer]) 11/22/2021 Sex and Gender Information Value Date Recorded Sex Assigned at Female 11/22/2021 11:24 PM CDT Gender Identity Female 11/22/2021 11:24 PM CDT Sexual Orientation Lesbian or Alonso 11/22/2021 11 :24 PM CDT Last Filed Vital Signs Vital Sign Reading Time Taken Comments Blood Pressure 153/85 04/04/2023 1:48 PM ACTUARY MANAGER Pulse 82 04/04/2023 1:48 PM ACTUARY MANAGER Temperature 35.1 ??C (95.2 ??F) 11/21/2021 7:47 AM CD T Respiratory Rate - - Oxygen Saturation 97% 11/21/2021 7:47 AM CDT Inhaled Oxygen Concentration - - Weight 106 kg (232 lb 14.7 oz) 04/04/2023 1:46 P M ACTUARY MANAGER Height 171 cm (5' 7.32) 04/04/2023 1:46 PM ACTUARY MANAGER Body Mass Index 36.13 04/04/2023 1:46 PM ACTUARY MANAGER Plan of Treatment Not on file Procedures Procedure Name Priority Date/Time Associated Diagnosis Comments BMD BONE DENSITY SPINE HIPS RAD - Routine (most inpatients and all outpatients) 06/12/2023 1:34 PM CDT Sarcoidosis Corticosteroid Treatment Residential Systemic Immunodeficiency Due To Drugs (HCC) DIPSTICK, [...] inpatients and all outpatients) 04/04/2023 8:46 AM ACTUARY MANAGER Failure Heart (HCC) ECG Routine 04/04/2023 8:26 AM ACTUARY MANAGER Failure Heart (HCC) GLUCOSE, FASTING, S/P Routine 04/04/2023 8:01 AM ACTUARY MANAGER Failure Heart (HCC) NT-PRO B-TYPE NATRIURETIC PEPTIDE (BNP), S Routine 04/04/2023 8:00 AM ACTUARY MANAGER Failure Heart (HCC) POTASSIUM, S/P Routine 04/04/2023 8:00 AM ACTUARY MANAGER Failure Heart (HCC) BICARBONATE, B/S/P Routine 04/04/2023 8: 00 AM ACTUARY MANAGER Failure Heart (HCC) THYROID-STIMULATING HORMONE-SENSITIVE (S-TSH) Routine 04/04/2023 8:00 AM ACTUARY MANAGER Failure Heart (HCC) CBC WITH DIFFERENTIAL, B Routine 04/04/2023 8:00 AM ACTUARY MANAGER Failure Heart (HCC) LIPID PANEL, S Routine 04/04/2023 8:00 AM ACTUARY MANAGER Failure Heart (HCC) BUN (BLOOD UREA NITROGEN), S/P Routine 04/04/2023 8:00 AM ACTUARY MANAGER Failure Heart (HCC) ASPARTATE AMINOTRANSFERASE (AST), S/P Routine 04/04/2023 8:00 AM ACTUARY MANAGER Failure Heart (HCC) CREATININE WITH EGFR, S/P Routine 04/04/2023 8:00 AM ACTUARY MANAGER Failure Heart (HCC) SODIUM, S/P Routine 04/04/2023 8:00 AM ACTUARY MANAGER Failure Heart (HCC) BI BREAST SCREENING BILATERAL [...] Bone Mineral Density (BMD) analysis performed on [employer] with serial number [id number]. ? FINDINGS: Left Hip: Femur Neck: BMD [...] including images and graphs, is available in [employer]. In the absence of other causes of [...] image stored in the BMD study in [employer]), the calculated ten year probability of fracture is: FRAX Risk Factors: None FRAX (10 yr probability) adjusted for TBS: Major Osteoporotic Fracture: ??4.4 % Hip Fracture: ?0.2 % ? Procedure Note Scot Carrasco M.D. - 06/12/2023 EXAM: BMD BONE DENSITY SPINE HIPS Bone Mineral Density (BMD) analysis performed on [employer] with serialnumber [id number]. FINDINGS: Left Hip: Femur Neck: BMD = [...] density (Osteopenia) [employer] (region: Neck Right) Olivia GIBBS DXA PROCED URES * Dipstick, Urine (06/12/2023 [...] CDT Olivia Arreguin M.D. LAB URINE ALEXANDER ESPINOJOHANN Performing Organization Address City/[facility] Co de Phone Number [facility] [address] [place] [address], [facility] 200 [place] [address] * Microscopic Automated (06/12/2023 12:31 PM CDT) [...] LAB URINE ALEXANDER OLSEN Performing Organization Address City/[facility]/ZIP Co de Phone Number [facility] [address] [place] [address], [facility] [address] [place] [address] * pH, Urine (06/12/2023 12:31 PM CDT) pH, U 5.8 4.5 - 8.0 06/12/2023 1:4 8 PM CDT DTL Urine 06/12/2023 12:3 1 PM CDT 06/12/2023 12:53 PM CDT Olivia Arreguin M.D. LAB URINE ORDE RAÚL [facility] [address] [place], [place] [phone] [place] [address] 200 [place] [address] * Protein/Creatinine Ratio, Random, Urine (06/12/2023 12:31 PM CDT) Protein, Total, Random, U 17 mg/dL 06/12/2023 1:43 PM CDT DTL Creatinine, Random, U 259 16 - 326 mg/dL 06/12/2023 1:43 PM CDT DTL Protein/Creatin ine Ratio 0.07 <0.18 mg/mg 06/12/2023 1:43 PM CDT DTL Urine (Urine, Midstream) 06/12/2023 12:31 PM CDT 06/12/2023 12:53 PM CDT Olivia Arreguin M.D. LAB URINE AYANAE RAÚL Performing Organization Address City/[facility]/ZIP Co de Phone Number [facility] [address] [place], [place] [address] [place] [address] 200 [place] [address] * Osmolality, Urine (06/12/2023 12:31 PM CDT) Osmolality, U 804 150 - 1150 mOsm/kg 06/12/2023 1:48 PM CDT DTL Urine 06/12/2023 12:3 1 PM CDT 06/12/2023 12:53 PM CDT Olivia Arreguin M.D. LAB URINE ORDE RAÚL [facility] [address] [place] [address], [facility] [address] [place] [address] * Calcium/Creatinine Ratio, Random, Urine (06/12/2023 12:31 [...] LAB URINE ALEXANDER OLSEN Performing Organization Address City/[facility]/ZIP Co de Phone Number [facility] [address] [place] [address], [facility] [address] [place] [address] * Urinalysis, with Microscopic: Urine, Midstream (06/12/2023 [...] Olivia Arreguin M.D. LAB URINE ALEXANDER OLSEN [facility] [address] [place] [address], [facility] DTL [facility] [address] [place] [address] * HBc Total Ab, Serum (06/12/2023 12:28 PM CDT) HBc Total Ab, S Negative Negative 06/12/2023 8:08 PM CDT [facility] Blood (Blood, Venous) 06/12/2023 12:28 PM CDT 06/12/2023 4:50 PM CDT Olivia Arreguin M.D. LAB MICROBIOLO GY - BLOOD ORDERABLES [facility] [address] [place] [address] [facility] [address] [place] [address] * HBs Antibody, Serum (06/12/2023 12:28 PM CDT) HBs Antibody, S Negative 06/12/2023 8:08 PM CDT [facility] Comment: Patient is presumed to be not immune to infection with HBV. ----REFERENCE VALUE---- Unvaccinated: Negative Vaccinated: Positive HBs Antibody, Quantitative, S <5.0 mIU/mL 06/12/2023 8:08 PM CDT [facility] Comment: ----REFERENCE VALUE---- Unvaccinated: <5.0 Vaccinated: >=12.0 Blood (Blood, Venous) 06/12/2023 12:28 PM CDT 06/12/2023 4:50 PM CDT Olivia Arreguin M.D. LAB MICROBIOLO GY - BLOOD ORDERABLES [facility] [address] [place] [address] [facility] [address] [place] [address] * (ABNORMAL) CRP (C-Reactive Protein) (06/12/2023 12:28 PM CDT) C-Reactive Protein (CRP), S 5.2(H) <5.0 mg/L 06/12/2023 1:27 PM CDT DTL Blood (Blood, Venous) 06/12/2023 12:28 PM CDT 06/12/2023 1:04 PM CDT Olivia Arreguin M.D. LAB BLOOD ADD- ON [facility] [address] [place] [address], [facility] [address] [place] [address] * (ABNORMAL) Comprehensive Metabolic Panel (06/12/2023 12:28 PM CDT) Pathologist [facility] Potassium, S 4.2 3.6 - 5.2 [...] Olivia Arreguin M.D. LAB BLOOD ADD- ON [facility] [address] [place] [address], [facility] [address] [place] [address] * HCV Ab w/Reflex to HCV PCR, Serum (06/12/2023 12:27 PM CDT) Pathologist [facility] HCV Ab, S Negative Negative 06/14/2023 10:56 AM CDT [facility] Comment: Consumption of high-dose biotin supplement within 12 hours of blood collection for this test can cause false-negative results. Blood (Blood, Venous) 06/12/2023 12:27 PM CDT 06/12/2023 4:50 PM CDT Olivia Arreguin M.D. LAB MICROBIOLO GY - BLOOD ORDERABLES [facility] [address] [place] [address] [facility] [address] [place] [address] * 1,25-Dihydroxyvitamin D (06/12/2023 12:27 PM CDT) 1, 25 DIHYDROXYVITAMIN D, S 41 18 - 78 pg/mL 06/14/2023 2:01 PM CDT [facility] Comment: ----ADDITIONAL INFORMATION---- This test was developed and its performance characteristics determined by [facility] in a manner consistent with CLIA requirements. This test has not been cleared or approved by the U.S. Food and Drug Administration. Blood (Blood, Venous) 06/12/2023 12:27 PM CDT 06/13/2023 7:43 AM CDT Olivia Arreguin M.D. LAB BLOOD ADD- ON [facility] [address] [place] [address] [facility] [address] [place] [address] [place] [address] * (ABNORMAL) 25-Hydroxyvitamin D2 and D3 (06/12/2023 12:27 PM CDT) 25-Hydroxy D2 <4.0 ng/mL 06/17/2023 1:31 PM CDT [facility] 25-Hydroxy D3 16 ng/mL 06/17/2023 1:31 PM CDT [facility] 25-Hydroxy D Total 16(L) ng/mL 2023 1:31 PM CDT [facility] Comment: Interpretation: 10-19 ng/mL (mild to moderate deficiency) ----REFERENCE VALUE---- 25-HYDROXY D TOTAL (D2+D3) Optimum levels in the healthy population are 20-50, patients with bone disease may benefit from higher levels within this range. ----ADDITIONAL INFORMATION---- This test was developed and its performance characteristics determined by [facility] in a manner consistent with CLIA requirements. This test has not been cleared or approved by the U.S. Food and Drug Administration. Blood (Blood, Venous) 06/12/2023 12:27 PM CDT 06/13/2023 7:17 AM CDT Olivia A Arreguin M.D. LAB BLOOD ADD- ON Performing Organization Address [facility]/ZIP Co de Phone Number [facility] [address] [place] [address] [facility] [address] [place] [address] [place] [address] * Hepatitis B Surface Antigen (06/12/2023 12:27 PM CDT) Pathologist [facility] HBs Antigen, S Negative Negative 06/14/2023 10:56 AM CDT [facility] Blood (Blood, Venous) 06/12/2023 12:27 PM CDT 06/12/2023 4:50 PM CDT Olivia Arreguin M.D. LAB MICROBIOLO GY - BLOOD ORDERABLES Performing Organization Address [facility] Co de Phone Number [facility] [address] [place] [address] [facility] [address] [place] [address] * Sedimentation Rate (06/12/2023 12:27 PM CDT) Pathologist [facility] Sedimentation Rate, B 16 2 - 22 mm/h 06/12/2023 1:57 PM CDT DT Blood (Blood, Venous) 06/12/2023 12:27 PM CDT 06/12/2023 12:51 PM CDT Olivia Arreguin M.D. LAB BLOOD ADD- ON Performing Organization Address City/[facility] Co de Phone Number [facility] [address] [place] [address], [facility] DTL [facility] [address] [place] [address] * (ABNORMAL) CBC with Differential, Blood (06/12/2023 [...] Olivia Arreguin M.D. LAB BLOOD ADD- ON [facility] [address] [place] [address], [place] DTL [facility] [address] [place] [address] [facility] [address] [place] [address] * GGT (Gamma-Glutamyltransferase) (06/12/2023 12:22 PM CDT) Gamma Glutamyltransferase (GGT), S 10 5 - 36 U/L 06/12/2023 6:19 PM CDT DTL Blood (Blood, Venous) 06/12/2023 12:22 PM CDT 06/12/2023 5:18 PM CDT Olivia Arreguin M.D. LAB BLOOD ADD- ON [facility] [address] [place] [address], [facility] DTL [facility] [address] [place] [address] * DX Chest AP or PA and Lateral 2 Views (04/04/2023 8:46 AM ACTUARY MANAGER) Anatomical Region Laterality Modality Chest, Thoracic RST LOS, Tho racic ARZ LOS, Thoracic FLA LOS N/A Digital Radiography Impressions 04/04/2023 9:32 AM ACTUARY MANAGER Patchy perihilar nodularity with mild hilar adenopathy. Findings are unchanged since 08/15/2021 and would be consistent with sarcoidosis. Heart size at upper limits of normal. Calcified and tortuous aorta. Abdominal surgical clips. Narrative 04/04/2023 9:32 AM ACTUARY MANAGER EXAM: ??DX CHEST AP OR PA AND [...] * ECG 12 Lead (04/04/2023 8:26 AM ACTUARY MANAGER) Ventricular Rate ECG/Min 77 BPM MUSE AK Interval 166 ms MUSE QRSD Interval 136 ms MUSE QT Interval 424 ms MUSE QTC Interval 479 ms MUSE P [place] 45 degrees MUSE R [place] -12 degrees MUSE T Wave [place] 126 degrees MUSE 04/04/2023 8:26 AM ACTUARY MANAGER 04/04/2023 8:35 AM ACTUARY MANAGER Impressions MUSE - 04/04/2023 8:35 AM ACTUARY MANAGER Normal sinus rhythm Left bundle branch block [...] Nolan APRN, C.N.P., M.S.N. ECG O RDERABLES Performing Organization Address City/[facility]/ZIP Co de Phone Number MUSE NA * Glucose, Fasting (04/04/2023 8:01 AM ACTUARY MANAGER) Glucose, P 85 70 - 100 mg/dL 04/04/2023 8:59 AM ACTUARY MANAGER DTL Last Intake 1 hr 04/04/2023 8:41 AM ACTUARY MANAGER DTL Blood (Blood, Venous) 04/04/2023 8:01 AM ACTUARY MANAGER 04/04/2023 8:41 AM ACTUARY MANAGER Yas Schultz APRNNCher, M.S.N. LAB B LOOD NON ADD-ON [facility] [address] [place] [address], [facility] [address] [place] [address] * (ABNORMAL) Lipid Panel (04/04/2023 8:00 AM ACTUARY MANAGER) Triglycerides 144 mg/dL 04/04/2023 9:16 AM ACTUARY MANAGER DTL Comment: ----REFERENCE VALUE---- Normal: <150 mg/dL Borderline High: 150-199 mg/dL High: 200-499 mg/dL Very High: > or =500 mg/dL Cholesterol, Total 180 mg/dL 2023 9:16 AM ACTUARY MANAGER DTL Comment: ----REFERENCE VALUE---- Desirable: < 200 mg/dL Borderline High: 200 - 239 mg/dL High: > or = 240 mg/dL Cholesterol, LDL, Calculated 107 mg/dL 04/04/2023 9:16 AM ACTUARY MANAGER DTL Comment: ----REFERENCE VALUE---- Desirable: <100 mg/dL Above Desirable: 100-129 mg/dL Borderline High: 130-159 mg/dL High: 160-189 mg/dL Very High: >=190 mg/dL ----ADDITIONAL INFORMATION---- LDL cholesterol calculated using the Gardner/NIH equation. Cholesterol, HDL, S 48(L) >=50 mg/dL 04/04/2023 9:16 AM ACTUARY MANAGER DTL Cholesterol, Non-HDL, Calculated 132 mg/dL 04/04/2023 9:16 AM ACTUARY MANAGER DTL Comment: ----REFERENCE VALUE---- Desirable: <130 mg/dL Above Desirable: 130-159 mg/dL Borderline High: 160-189 mg/dL High: 190-219 mg/dL Very High: > or =220 mg/dL Fasting (8 HR or more) No 04/04/2023 8:41 AM ACTUARY MANAGER DTL Blood (Blood, Venous) 04/04/2023 8:00 AM ACTUARY MANAGER 04/04/2023 8:41 AM ACTUARY MANAGER Neisha Nolan APRN C.N.P., M.S.N. LAB B LOOD ADD-ON [facility] [address] [place] [address], [facility] [address] [place] [address] * NT-Pro B-Type Natriuretic Peptide (BNP) (04/04/2023 8:00 AM ACTUARY MANAGER) NT-Pro BNP 151 <=226 pg/mL 04/04/2023 9:16 AM ACTUARY MANAGER DTL Comment: NT-proBNP values less than 300 [...] failure. Blood (Blood, Venous) 04/04/2023 8:00 AM ACTUARY MANAGER 04/04/2023 8:41 AM ACTUARY MANAGER Neisha Nolan APRN, C.N.P., M.S.N. LAB B LOOD ADD-ON Performing Organization Address City/[facility]/ZIP Co de Phone Number [facility] [address] [place] [address], [facility] [address] [place] [address] * BUN (Blood Urea Nitrogen) (04/04/2023 8:00 AM ACTUARY MANAGER) BUN (Blood Urea Nitrogen), S 12 6 - 21 mg/dL 04/04/2023 9:16 AM ACTUARY MANAGER DTL Blood (Blood, Venous) 04/04/2023 8:00 AM ACTUARY MANAGER 04/04/2023 8:41 AM ACTUARY MANAGER Neisha Nolan APRN, C.N.P., M.S.N. LAB B LOOD ADD-ON [facility] [address] [place] [address], [facility] [address] [place] [address] * AST (Aspartate Aminotransferase) (04/04/2023 8:00 AM ACTUARY MANAGER) Aspartate Aminotransferase (AST), S 18 8 - 43 U/L 04/04/2023 9:16 AM ACTUARY MANAGER DTL Blood (Blood, Venous) 04/04/2023 8:00 AM ACTUARY MANAGER 04/04/2023 8:41 AM ACTUARY MANAGER Neisha Nolan APRN, C.N.P., M.S.N. LAB B LOOD ADD-ON [facility] [address] [place] [address], [facility] [address] [place] [address] * S-TSH (Thyroid-Stimulating Hormone - Sensitive) (04/04/2023 8:00 AM ACTUARY MANAGER) TSH, Sensitive 3.2 0.3 - 4.2 mIU/L 04/04/2023 9:16 AM ACTUARY MANAGER DTL Blood (Blood, Venous) 04/04/2023 8:00 AM ACTUARY MANAGER 04/04/2023 8:41 AM ACTUARY MANAGER Neisha Nolan APRN, C.N.P., M.S.N. LAB B LOOD ADD-ON Performing Organization Address City/[facility]/ZIP Co de Phone Number [facility] [address] [place] [address], [facility] [address] [place] [address] * Sodium (04/04/2023 8:00 AM ACTUARY MANAGER) Sodium, S 145 135 - 145 mmol/L 04/04/2023 9:16 AM ACTUARY MANAGER DTL Blood (Blood, Venous) 04/04/2023 8:00 AM ACTUARY MANAGER 04/04/2023 8:41 AM ACTUARY MANAGER Neisha Nolan APRN, C.N.P., M.S.N. LAB B LOOD ADD-ON [facility] [address] [place] [address], [facility] [address] [place] [address] * (ABNORMAL) Potassium (04/04/2023 8:00 AM ACTUARY MANAGER) Potassium, S 3.4(L) 3.6 - 5.2 mmol/L 04/04/2023 9:16 AM ACTUARY MANAGER DTL Blood (Blood, Venous) 04/04/2023 8:00 AM ACTUARY MANAGER 04/04/2023 8:41 AM ACTUARY MANAGER Neisha Nolan APRN, C.N.P., M.S.N. LAB B LOOD ADD-ON Performing Organization Address City/[facility] Co de Phone Number [facility] [address] [place] [address], [place] [address] * Creatinine with Estimated GFR (04/04/2023 8:00 AM ACTUARY MANAGER) Creatinine 0.95 0.59 - 1.04 mg/dL 04/04/2023 9:16 AM ACTUARY MANAGER DTL Estimated GFR (eGFR) 69 >=60 mL/min/BSA 04/04/2023 9:16 AM ACTUARY MANAGER DTL Comment: Estimated GFR calculated using the 2020 CKD_EPI creatinine equation. Blood (Blood, Venous) 04/04/2023 8:00 AM ACTUARY MANAGER 04/04/2023 8:41 AM ACTUARY MANAGER Neisha Nolan APRN, C.N.P., M.S.N. LAB B LOOD ADD-ON Performing Organization Address City/[facility] Co de Phone Number [facility] [address] [place] [address], [facility] [address] [address] * Bicarbonate (04/04/2023 8:00 AM ACTUARY MANAGER) Bicarbonate, S 29 22 - 29 mmol/L 04/04/2023 9:16 AM ACTUARY MANAGER DTL Blood (Blood, Venous) 04/04/2023 8:00 AM ACTUARY MANAGER 04/04/2023 8:41 AM ACTUARY MANAGER Neisha Nolan APRN, C.N.P., M.S.N. LAB B [facility]ILFRED ADD-ON MO[facility] [address] [place] [address], [place] [facility] [address] [place] [address] from Last 3 Months or Most Recently Relevant to Health Maintenance
--- OUTSIDE RECORDS SUMMARY | 2023-06-29 19:06 | XMS_ITS | Encounter Summary ---
Author Name Unknown Organization [facility] Address [address] [place] [address] Care Team Providers Care Jowl Trimmer Name Role Phone Unavailable Primary Care Provider Unavailabl e Reason for Referral * MRI/CAT/PET Scan (Routine) - Pending Review Specialty Diagnoses / Procedures Referred By Contac t Referred To Contact Radiology Diagnoses Sarcoidosis Procedures CT Chest without IV Contrast Rajat Pizarro M.B.B.S. [address] [place] [phone] [facility] Referral ID Status Reason Start Date Expiration Date V isits Requested Visits Authorized [id number] Pending Review 06/13/2023 06/12/2024 1 1 * Outpatient (Routine) - Authorized Specialty Diagnoses / Procedures Referred By Contac t Referred To Contact Rheumatology Rajat Pizarro M.BSandieB.S. [address] [place] [phone] [facility] Referral ID Status Reason Start Date Expiration Date V isits Requested Visits Authorized [id number] Authorized 06/13/2023 12/12/2024 1 1 * Specialty Diagnoses / Procedures Referred By Contac t Referred To Contact Olivia Arreguin M.D. 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 [address] [place] [phone] [facility] Referral ID Status Reason Start Date Expiration Date Visits Re quested Visits Authorized [id number] Closed 06/12/2023 06/11/2024 1 1 Reason for Visit * Outpatient (Routine) - Closed Specialty Diagnoses / Procedures Referred By Martina david Referred To Contact Rheumatology Diagnoses Sarcoidosis Neisha Nolan, JESSIKA, C.N.P., M.S.N. [address] [place] [phone] [facility] Referral ID Status Reason Start Date Expiration Date Visits Re quested Visits Authorized [id number] Closed 04/05/2023 10/04/2024 1 1 Encounter Details Date Type Department Care Team (Latest Contact Info) Description 06/12/2023 10:15 AM CDT Comprehensive Visit Division of Rheumatology in [place], [place] [address] [place] [phone] Rajat Pizarro M.B.B.S. [address] [place] [phone] Sarcoidosis (Primary Dx); Corticosteroid Treatment French Weaver Systemic; Immunodeficiency Due To Drugs (HCC); Elevated Alkaline Phosphatase Social History Tobacco Use Types Packs/Day Years Used Date Smoking Tobacco: Former Cigarettes 0.5 10 0 02/25/1994 - 02/26/2004 Passive Smoke Exposure: Past Smokeless Tobacco: Never Alcohol Use Standard Drinks/Week Comments Yes 2 (1 standard drink = 0.6 oz pur e alcohol) [facility] Utilities Answer Date Recorded In the past 12 months has th e electric, gas, oil, or water company threatened to shut off services in your [...] week 11/22/2021 How often do you attend [facility] or yarsanism services? More than 4 times per year 11/22/2021 Do you belong to any clubs o r organizations such as alevism groups, unions, fraternal or [...] and heating? Not hard at all 11/22/[address] [facility] [place] of Occupat ional Health - Occupational Stress [...] your living situation today? I [place] a [place] [address] to live 03/30/2023 Education Answer Date Recorded What is the highest level of school you have completed or the highest degree you have received? 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 - 06/12/2023 10:15 AM CDT Cylinder Steamer- yearly, fax records to us Methotrexate Dr. Pizarro will touch base with cardiology about the prednisone and methotrexate Follow up in six months Lung function tests, likely imaging (like a CT) at that time. Should have repeat cardiac testing aswell documented in this encounter Consult Notes * Olivia Arreguin M.D. - 06/12/2023 10:15 AM CDT SUBJECTIVE CHIEF COMPLAINT / REASON FOR CONSULT Nanci Rice is a 58 y.o. female who was referred by Neisha Nolan APRN, C.N.P., M.S.N. 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 Her history of symptoms (dyspnea with exertions and palpitations along with productive cough) dating back at least a few years prior to 2021 when she was diagnosed with sarcoidosis. She didn't have imaging done prior to 2021 just PFT that reportedly showed some reactive airway disease. She was followed prior to 2021 for frequent PVCs by a local runner out. She was not noted to have structural heart disease with just mild mitral regurgitation with mild mitral valve prolapse of the posterior leaflet. She established with a runner out in [place] in early 2021 after moving to [place]. A Holter demonstrated 19.3% PVC burden, some couplets and triplets, rare bigeminal and trigeminal episodes. She was having some dizziness episodically. A TTE was done in June 2021 and showed normal left ventricular size, borderline wall thickness, normal oral global systolic function, EF 64%. Grade 2 pattern of LV diastolic filling, mildly enlarged left atrium. She was placed on antiarrhythmic therapy in July 2021. PFTs on in July 2021 showed an FVC of 72% predicted, FEV1 C3% predicted, FEV1 /FVC ratio reduced consistent with moderate airflow obstruction. CT chest was done in 08/24/2021 and showed innumerable bilateral pulmonary nodules and nodular consolidation most of which show peribronchovascular in perilymphatic distribution, Site predilection of the upper and midlung zones, multiple prominent lymph nodes including mediastinal, lower cervical, upper abdominal and likely parahilar although perihilar fullness could represent a combination lymphadenopathy and perihilar consolidation. The findings werethought to be likely secondary to an inflammatory process like sarcoid, infectious process, or lesslikely neoplastic process. She had Histoplasma and Blastomyces serology and antigen checked and these were negative. STEFANIA checked and normal. CBC was normal aside from some lymphopenia August 2021. It does not look like inflammatory markers were checked or being followed. She did have COVID testing done again which was negative in July 2021. She underwent bronchoscopy with lymph node biopsy completed on 09/25/2021. Lymph node biopsy demonstrated polymorphous small mature lymphocytes consistent with a lymph node, rare epithelioid histiocytes, suggestive of granuloma, negative for malignancy, 2 other lymph node biopsies were nondiagnostic without definitive lymph node tissue. Lung endobronchial biopsy demonstrated granulomatous inflammation without definite necrosis, Gram stain and acid-fast stains were negative, negative for malignancy She was started on prednisone on 09/27/2021- 40 mg daily for 2 weeks, then 20 mg daily until follow-up at 2 months. She was recommended to have additional cardiac evaluation to look for involvement. She had a cardiac MRI done in September 2021 outside and this showed mid wall delayed enhancement of the basal anteroseptum, evidence of regional edema on T2 parametric imaging, MRI findings were suggestive of cardiac involvement. Cardiac PET was then done in November 2021 on prednisone (20mg it seems per review of the chart) and showed normal resting myocardial perfusion, no focal myocardial uptake,LVEF normal She was initiated on Cellcept in late November 2021 and subsequently tapered down and off of prednisone. Cellcept was increased to a dose of 1250mg BID and she was on this until about two months ago. She was seen here in 2022 for second opinion for her sarcoidosis management. PFTs were normal at that time and pulmonary did not recommend immunosuppression for pulmonary disease. She was off of prednisone by the time of her evaluation here in 04/2022 and she was recommended to continue on cellcept therapy for cardiac sarcoid and have interval cardiac PET in six months. She had a PVC ablation in january 2022. Unfortunately her cardiac PET in November 2022 showed uptake in the basal and mid inferolateral wall. Additionally, there was uptake in the mid lateral wall. There was extracardiac activity visualized, specifically mediastinal lymph nodes. This uptake pattern is consistent with active cardiac sarcoidosis or other inflammatory process. Lvef was normal at 63%. CT chest was done in 08/2022 and this showed unchanged sarcoid lung findings comparing to 08/24/2021. She had CT abd/pelvis done in 10/2022 and this showed renal stones (done for symptomatic renal stones) and mild splenomegaly. Cardiac PET done in February showed a mild perfusion abnormality in the apical inferior wall,similar distriubtion and findings compared to November 2022. Her last holter done late last year demonstrated continued lowPVC burden. Additional history of symptoms provided today- She notes that her to her diagnosis of systemic sarcoid, the symptoms that she had noticed includedchronic cough with white stringy sputum, shortness of breath that had progressively worsened, and significant palpitations along with her PVCs and SVT. The dyspnea was worse prior to her initial course of steroids for sarcoidosis in 2021. At this point, she has some dyspnea with walking up hills and stairs but no longer was locking flat surfaces and not at rest as she had prior. Cough continues to be present though has not worsened. She has not noticed wheezing. The Dulera that her mold designer prescribed has been helpful. She has not noted low oxygen saturations except for when she has beenill with viral infection like with an RSV pneumonia that she had last year. She notes having PFTs done late last year and that these were unremarkable. She has not had any issues with syncope or presyncope, feeling dizzy or lightheaded, rashes, bruising or nodules. She has not had any joint swelling, prolonged morning stiffness or unusual joint pain, no double vision, no difficulties with swallowing, no numbness or tingling, or weakness. No hearing changes. Has some intermittent swelling in the legs. No orthopnea. No chest pain outside of her episodes of esophageal spasm. She does have dry eyes. Has noted some gradual reduction her vision overtime, but has seen Ophthalmology and not been noted to have uveitis. She has not had occasions of red, painful eyes or sudden visual change. She has some intermittent loose stools, but not persistent diarrhea, abdominal pain, or any blood in the stool. She is noted some weight gain while on prednisone. She tolerated the CellCept okay. Her side effects from this included some increased mild leg swelling, loose stools, and reduced appetite. However, she had not have issues with taking the CellCept and was taken on an empty stomach. Symptom keenan, she is noted the ablation to be probably the mosthelpful as this improve the episodes of lightheadedness and dizziness and heart racing that she washaving. She did have renal stones developed last fall and then another in February. Prior to this, she has not had any issues with kidney stones. Labs have not noted hypercalcemia. Previous Reports Reviewed:historical medical records, lab reports, outside records, and radiology reports REVIEW OF SYSTEMS Pertinent positives and negatives as documented in the above history of present illness. REVIEW OF SYSTEMS OBJECTIVE PHYSICAL EXAM Physical Exam General: Alert, oriented, appropriate affect, no apparent distress. Pleasant, conversive, well appearing. Skin: No rheumatic rashes. No vasculitic rash. No rheumatoid nodules. No lesions resembling erythema nodosum. There is 1 small papule on the hairline at the scalp, otherwise no notable skin lesions. Eyes: Clear conjunctivae and lids. PERRL. EOMI. No significant scleral injection Ear, Nose and Throat: Moist oral mucosa without mucositis. No oral or nasal ulcers. No enlargement of the submandibular or parotid glands noted. Lymph: No cervical, preauricular, submandibular, or supraclavicular adenopathy. Heart: Regular rate, regular rhythm. No appreciated murmurs or rubs. Lungs: Clear to auscultation bilaterally. No wheezing, rhonchi, or crackles Abdomen: No tenderness or abdominal distension Vessels: Normal radial and pedal pulses. Trace peripheral edema noted Spine: No midline spine tenderness. Neuro: Appropriate gait for age. Proximal and distal strength in the upper and lower extremities isintact at the deltoids, biceps, triceps, wrist extensors and flexors, also talked with hip flexion,knee extension flexion, ankle dorsiflexion and plantar flexion. Joints: No tender joints. No synovitis of the upper and lower extremities including hands, wrists, elbows, knees, ankles or feet bilaterally. Range of motion of the extremities including shoulder andhips are within functional limits bilaterally. 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 The pleasure meeting with her today. She has biopsy-proven pulmonary sarcoidosis and a clinical course and imaging that would be consistent with active cardiac sarcoidosis. Her myocardial inflammation on PET scan had resolved with high-dose prednisone. However, on CellCept monotherapy she had recurrent inflammation on cardiac PET. Fortunately, does not appear that she had any issues with very conc erning arrhythmia in the context of recurrent inflammation and has not had cardiac dysfunction. It has been outlined by Cardiology that will she will resume prednisone therapy. We will touch base with her cardiology team to discuss the prednisone burst and taper. She has been off of CellCept therapy (and off any treatment) for 2 months. Given the absence of cardiac dysfunction or significant arrhythmias, it would seem very reasonable to start subcutaneous methotrexate therapy for a steroid sparing agent. If this is insufficient and allowing prednisone to be tapered fully off, then addition ofa biologic can be discussed. We will obtain some basic labs, to assess for any additional organ involvement such as renal, liver, etc.. She should have annual Ophthalmology evaluation to assess for uveitis in the context of her systemic sarcoidosis. We will update hepatitis and tuberculosis screening in case escalation her immunosuppression is required in the future. 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 #4 Pulmonary consolidative opacities without noted bronchiectasis or fibrotic changes on prior lungimaging #5 Chronic corticosteroid therapy - CBC with Differential, Blood; Future; Expected date: 06/12/2023 - Comprehensive Metabolic Panel; Future; Expected date: 06/12/2023 - 25-Hydroxyvitamin D2 and D3; Future; Expected date: 06/12/2023 - Calcium/Creatinine Ratio, Random, Urine; Future; Expected date: 06/12/2023 - 1,25-Dihydroxyvitamin D; Future; Expected date: 06/12/2023 - Hepatitis B Surface Antigen; Future; Expected date: 06/12/2023 - HBs Antibody, Serum; Future; Expected date: 06/12/2023 - HBc Total Ab, Serum; Future; Expected date: 06/12/2023 - HCV Ab w/Reflex to HCV PCR, Serum; Future; Expected date: 06/12/2023 - Sedimentation Rate; Future; Expected date: 06/12/2023 - CRP (C-Reactive Protein); Future; Expected date: 06/12/2023 - Urinalysis, with Microscopic: Urine, Midstream; Future; Expected date: 06/12/2023 (Before next visit) - Protein/Creatinine Ratio, Random, Urine; Future; Expected date: 06/12/2023 - BMD Bone Density Spine Hips; Future; Expected date: 06/12/2023 - we would plan on follow-up by 6 months. This should include updated PFTs, cardiac PET, ECG, arrhythmia testing as deemed appropriate by Cardiology, repeat CBC, CMP, inflammatory markers and urine studies. It may also be appropriate to repeat a chest CT at that time - she should continue to have yearly ophthalmology exams to screen for uveitis - Dr. Pizarro will be in touch with her once he has spoken with cardiology regarding the prednisone dosing. He will also discuss methotrexate with Cardiology. At this time, we are planning that she will be and methotrexate subcutaneous therapy. This is assuming that her labs are acceptable. [facility] nursing today to review subcutaneous methotrexate administration. She would require monthly labmonitoring for the 1st 3 months of therapy, then labs every 3 months. Lab testing would include CBCwith differential, AST, ALT, and creatinine with EGFR. We also discussed that she will have to be on folic acid 1 mg daily on methotrexate. - Dr. Pizarro will also be in touch if any additional recommendations based on her laboratory results or DEXA screening. 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 She has also had PCV 20 vaccine. Additional vaccines that would be recommended for those on methotrexate would include the Shingrix/shingles vaccine and RSV vaccine FOLLOW-UP Long-term management and follow-up: Ms. Rice will continue longitudinal management and follow-up in the Division of Rheumatology at [facility] with Dr. Pizarro. Next appointment in 6 months. Rheumatology-related medications: Prescriptions, laboratory monitoring, and refills will be managedby the Division of Rheumatology at [facility]. Disease flares or relapse: Division of Rheumatology flare management protocols will be implemented. Patient seen and staffed with * Rajat Pizarro M.B.B.SSandie - 06/12/2023 10:15 AM CDT Rheumatology Sarcoidosis Supervisory Note I reviewed the case with the fellow and I saw the patient. I agree with the assessment and plan as documented in the note by Dr. Olivia Arreguin, Rheumatology Fellow This patient is a 58 yo female from [facility] who has seen Dr Ricky kwan in pulmonary and Neisha Nolan in Cardiology Sarcoidosis Clinic Sarcoidosis involvement: Pulmonary (biopsy proven at [facility]) Cardiac, positive PET/CT cardiac and arrhythmia Ocular: Screening for ocular involvement at [facility] Joints: No inflammatory joint symptoms or dactylitis Endocrine: No hypercalcemia or kidney stones Consitutional: No weight loss, fatigue Skin: No erythema nodosum or lupus pernio Treatment Prednisone burst and taper ([id number]) Cellcept Has been off treatment for 6 weeks No methotrexate, leflunomide, biologics No prior DEXA scan LABS Lab Results Component Value Date/Time CRP <3.0 11/21/2021 10:02 AM HGB 12.3 04/04/2023 08:00 AM HGB 11.9 (L) 06/05/2022 02:55 PM HGB 12.2 04/16/2022 11:38 AM HGB 14.6 10/12/2021 07:46 AM WBC 6.2 04/04/2023 08:00 AM WBC 6.4 06/05/2022 02:55 PM WBC 6.5 04/16/2022 11:38 AM PLT 240 04/04/2023 08:00 AM PLT 237 06/05/2022 02:55 PM PLT 203 04/16/2022 11:38 AM AST 18 04/04/2023 08:00 AM AST 17 12/28/2021 04:11 PM AST 15 11/21/2021 10:02 AM AST 15 08/31/2021 09:44 AM ALT 26 12/28/2021 04:11 PM ALT 20 11/21/2021 10:02 AM ALT 10 08/31/2021 09:44 AM CREATININE 0.95 04/04/2023 08:00 AM CREATININE 0.85 06/05/2022 02:55 PM CREATININE 0.86 02/21/2022 06:54 AM HEPCAB Non-Reactive 05/22/2021 02:25 PM Cardiac inflammation on PET/CT, Mar 20 Pulmonary Functions Testing Results: FEV1 Date Value Ref Range Status 11/22/2021 2.18 L Final FVC Date Value Ref Range Status 11/22/2021 2.88 L Final FEV1/FVC Date Value Ref Range Status 11/22/2021 75.68 % Final Assessment/Plan: #1 Multiorgan sarcoidosis including pulmonary, cardiac Given active cardiac inflammation on PET/CT needs to resume immunosuppression to reduce risk of cardiac failure, scarring and arrhythmia Recommend; Labs for sarcoidosis, infectious screening, vitamin D Urinalysis to screen for proteinuria DEXA scan, baseline Nurse education for methotrexate Uveitis screen by reciprocating drill operator locally, reports to be faxed to us Based on labs will decide on dose of prednisone and rate of taper Will plan for SQ methotrexate plus prednisone for 6 months, then return to see me alongside cardiacsarcoidosis clinic with labs, PET/CT cardiac, CT Chest, pulmonary function testing If Methotrexate insufficient or not tolerated, then will recommend TNF inhibitor (Adalimumab ideally) Address bone health and age appropriate vaccinations with primary care provider, will need to do methotrexate lab monitoring locally I will prescribe medications once labs are back and send a note to cardiac sarcoidosis colleagues Provided with patient information on prednisone and methotrexate Rest per Dr. Rodríguez [employer] Rheumatology documented in this encounter Plan of Treatment Scheduled Orders Name Type Priority Associated Diagnoses Order Schedule Sedimentation Rate Lab Routine Sarcoidosis Expected: 12/13/2023 (Approximate), Expires: 06/12/2024 CT Chest without IV Contrast Imaging RAD - Routine (most inpatients and all outpatients) Sarcoidosis Expected: 12/13/2023, Expires: 09/11/2024 Pulmonary Function Tests PFT Routine Sarcoidosis Expected: 12/13/2023, Expires: 09/11/2024 Scheduled Referrals Name Type Priority Associated Diagnoses Order Schedule Rheumatology - Education visit (clinic) Outpatient Referral Routine Sarcoidosis Immunodeficiency Due To Drugs (HCC) Expected: 06/12/2023, Expires: 09/10/2024 Rheumatology office visit (clinic) Outpatient Referral Routine Expected: 12/13/2023, Expires: 09/11/2024 documented as of this encounter Procedures Procedure Name Priority Date/Time Associated Diagnosis Comments GAMMA-GLUTAMYLTRANS FERASE (GGT), S/P Routine 06/12/2023 12:22 PM CDT Elevated Alkaline Phosphatase documented in this encounter Results * BMD Bone Density Spine Hips [...] Bone Mineral Density (BMD) analysis performed on [employer] with serial number [id number]. ? FINDINGS: Left Hip: Femur Neck: BMD [...] including images and graphs, is available in [employer]. In the absence of other causes of [...] image stored in the BMD study in [email or web address]), the calculated ten year probability of fracture is: FRAX Risk Factors: None FRAX (10 yr probability) adjusted for TBS: Major Osteoporotic Fracture: ??4.4 % Hip Fracture: ?0.2 % ? Procedure Note Scot Carrasco M.D. - 06/12/2023 EXAM: BMD BONE DENSITY SPINE HIPS Bone Mineral Density (BMD) analysis performed on [employer] with serialnumber [id number]. FINDINGS: Left Hip: Femur Neck: BMD = [...] Dual[employer]emur (region: Neck Right) Olivia Arreguin M.D. Ry DXA PROCED URES * Protein/Creatinine Ratio, Random, Urine (06/12/2023 12:31 [...] LAB URINE ALEXANDER OLSEN Performing Organization Address City/[facility]/ZIP Co de Phone Number [facility] [address] [place] [address], [facility] DTL [facility] [address] [place] [address] * Urinalysis, with Microscopic: Urine, Midstream (06/12/2023 [...] LAB URINE ALEXANDER OLSEN Performing Organization Address City/[facility]/ZIP Co de Phone Number [facility] [address] [place] [address], [place] DTL [facility] [address] [place] [address] * Calcium/Creatinine Ratio, Random, Urine (06/12/2023 12:31 PM CDT) Calcium/Creat Ratio, Random, U 0.08 0.05 - 0.27 mg/mg 06/12/2023 1:43 PM CDT DTL Calcium, Random, U 22 mg/dL 06/12/2023 1:43 PM CDT DTL Creatinine, Random, U 259 16 - 326 mg/dL 06/12/2023 1:43 PM CDT DTL Urine (Urine, Midstream) 06/12/2023 12:31 PM CDT 06/12/2023 12:53 PM CDT Olivia Arreguin M.D. LAB URINE ORDE RABLES Performing Organization Address City/[facility]/ZIP Co de Phone Number [facility] [address] [place] [address], [facility] [address] [place] [address] * (ABNORMAL) CRP (C-Reactive Protein) (06/12/2023 12:28 PM CDT) [facility] C-Reactive Protein (CRP), S 5.2(H) <5.0 mg/L 06/12/2023 1:27 PM CDT DT Blood (Blood, Venous) 06/12/2023 12:28 PM CDT 06/12/2023 1:04 PM CDT Olivia Arreguin M.D. LAB BLOOD ADD- ON [facility] [address] [place] [address], [facility] [address] [place] [address] * HBc Total Ab, Serum (06/12/2023 12:28 PM CDT) Pathologist [facility] HBc Total Ab, S Negative Negative 06/12/2023 8:08 PM CDT [facility] Blood (Blood, Venous) 06/12/2023 12:28 PM CDT 06/12/2023 4:50 PM CDT Olivia Arreguin M.D. LAB MICROBIOLO GY - BLOOD ORDERABLES Performing Organization Address [facility] Co de Phone Number [place] [id number] [place] [address] [place] [id number] [place] [address] * HBs Antibody, Serum (06/12/2023 12:28 PM CDT) Pathologist [facility] HBs Antibody, S Negative 06/12/2023 8:08 PM CDT [facility] Comment: Patient is presumed to be not immune to infection with HBV. ----REFERENCE VALUE---- Unvaccinated: Negative Vaccinated: Positive HBs Antibody, Quantitative, S <5.0 mIU/mL 06/12/2023 8:08 PM CDT [facility] Comment: ----REFERENCE VALUE---- Unvaccinated: <5.0 Vaccinated: >=12.0 Blood (Blood, Venous) 06/12/2023 12:28 PM CDT 06/12/2023 4:50 PM CDT Olivia Arreguin M.D. LAB MICROBIOLO GY - BLOOD ORDERABLES Performing Organization Address [facility] Co de Phone Number [facility] [address] [place] [address] [facility] [address] [place] [address] * (ABNORMAL) Comprehensive Metabolic Panel (06/12/2023 12:28 PM CDT) [facility] Potassium, S 4.2 3.6 - 5.2 [...] Olivia Arreguin M.D. LAB BLOOD ADD- ON [facility] [address] [place] [address], [facility] [address] [place] [address] * Sedimentation Rate (06/12/2023 12:27 PM CDT) Sedimentation Rate, B 16 2 - 22 mm/h 06/12/2023 1:57 PM CDT DT Blood (Blood, Venous) 06/12/2023 12:27 PM CDT 06/12/2023 12:51 PM CDT Olivia Arreguin M.D. LAB BLOOD ADD- ON [facility] [address] [place] [address], [facility] [address] [place] [address] * HCV Ab w/Reflex to HCV PCR, Serum (06/12/2023 12:27 PM CDT) HCV Ab, S Negative Negative 06/14/2023 10:56 AM CDT [facility] Comment: Consumption of high-dose biotin supplement within 12 hours of blood collection for this test can cause false-negative results. Blood (Blood, Venous) 06/12/2023 12:27 PM CDT 06/12/2023 4:50 PM CDT Olivia Arreguin M.D. LAB MICROBIOLO GY - BLOOD ORDERABLES Performing Organization Address [facility] Co de Phone Number [facility] [address] [place] [address] [facility] [address] [place] [address] * Hepatitis B Surface Antigen (06/12/2023 12:27 PM CDT) HBs Antigen, S Negative Negative 06/14/2023 10:56 AM CDT [facility] Blood (Blood, Venous) 06/12/2023 12:27 PM CDT 06/12/2023 4:50 PM CDT Olivia Arreguin M.D. LAB MICROBIOLO GY - BLOOD ORDERABLES Performing Organization Address City/[facility]/ZIP Co de Phone Number [facility] [address] [place] [address] [facility] [address] [place] [address] * 1,25-Dihydroxyvitamin D (06/12/2023 12:27 PM CDT) 1, 25 DIHYDROXYVITAMIN D, S 41 18 - 78 pg/mL 06/14/2023 2:01 PM CDT [facility] Comment: ----ADDITIONAL INFORMATION---- This test was developed and its performance characteristics determined by [facility] in a manner consistent with CLIA requirements. This test has not been cleared or approved by the U.S. Food and Drug Administration. Blood (Blood, Venous) 06/12/2023 12:27 PM CDT 06/13/2023 7:43 AM CDT Olivia Arreguin M.D. LAB BLOOD ADD- ON [facility] [address] [place] [address] [facility] [address] [place] [address] [place] [address] * (ABNORMAL) 25-Hydroxyvitamin D2 and D3 (06/12/2023 12:27 PM CDT) 25-Hydroxy D2 <4.0 ng/mL 06/17/2023 1:31 PM CDT [facility] 25-Hydroxy D3 16 ng/mL 06/17/2023 1:31 PM CDT [facility] 25-Hydroxy D Total 16(L) ng/mL 2023 1:31 PM CDT [facility] Comment: Interpretation: 10-19 ng/mL (mild to moderate deficiency) ----REFERENCE VALUE---- 25-HYDROXY D TOTAL (D2+D3) Optimum levels in the healthy population are 20-50, patients with bone disease may benefit from higher levels within this range. ----ADDITIONAL INFORMATION---- This test was developed and its performance characteristics determined by [facility] in a manner consistent with CLIA requirements. This test has not been cleared or approved by the U.S. Food and Drug Administration. Blood (Blood, Venous) 06/12/2023 12:27 PM CDT 06/13/2023 7:17 AM CDT Olivia Arreguin M.D. LAB BLOOD ADD- ON [facility] [address] [place] [address] [facility] [address] [place] [address] [place] [address] * (ABNORMAL) CBC with Differential, Blood (06/12/2023 12:27 PM CDT) Hemoglobin 13.4 11.6 - 15.0 g/dL 06/12/2023 [...] Olivia Arreguin M.D. LAB BLOOD ADD- ON [facility] [address] [place] [address], [facility] DTL [facility] [address] [place] [address] [facility] [address] [place] [address] * GGT (Gamma-Glutamyltransferase) (06/12/2023 12:22 PM CDT) Gamma Glutamyltransferase (GGT), S 10 5 - 36 U/L 06/12/2023 6:19 PM CDT DTL Blood (Blood, Venous) 06/12/2023 12:22 PM CDT 06/12/2023 5:18 PM CDT Olivia Arreguin M.D. 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
--- OUTSIDE RECORDS SUMMARY | 2023-06-29 19:06 | XMS_ITS ---
Author Name Unknown Organization [facility] Address [address] [place] [address] Care Team Providers Care Mosaicist Name Role Phone Unavailable Unavailable Unavailable Surgery Details Not on file Complications Check Surgery Details section. Procedure Estimated Blood Loss Check Surgery Details section. Procedure Findings Check Surgery Details section. Procedure Specimens Taken Check Surgery Details section.
--- OUTSIDE RECORDS SUMMARY | 2023-06-29 19:06 | XMS_ITS | Encounter Summary ---
Author Name Unknown Organization [facility] Address [address] [place] [address] Care Team Providers Care Hybrid Derivatives Trader Name Role Phone Unavailable Primary Care Provider Unavailabl e Reason for Referral * Outpatient (Routine) - Authorized Specialty Diagnoses / Procedures Referred By Martina t Referred To Contact Sleep Medicine Diagnoses Obstructive Sleep Apnea Adult Neisha Nolan APRN, C.N.Cheryl., M.S.N. 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 [address] [place] [phone] Obstructive Sleep Apnea Adult (Primary Dx) Social History Tobacco Use Types Packs/Day Years Used Date Smoking Tobacco: Former Cigarettes 0.5 10 0 02/25/1994 - 02/26/2004 Smokeless Tobacco: Never Alcohol Use Standard Drinks/Week Comments Yes 2 (1 standard drink = 0.6 oz pur e alcohol) [facility] Utilities Answer Date Recorded In the past 12 months has e electric, gas, oil, or water company [...] How often do you attend chur or hoahaoism services? More than 4 times per year 11/22/2021 Do you belong to any clubs o r organizations such as bahai groups, unions, fraternal or athletic groups, or [...] and heating? Not hard at all 11/22/2021 [facility] [place] of Occupat ional Health - Occupational Stress [...] Master's degree (e.g., MA, MS, Arti, MEd, LINE MAINTENANCE SUPERVISOR, G[employer]) 11/22/2021 Sex and Gender Information Value Date Recorded Sex Assigned at Female 11/22/2021 11:24 PM CDT Gender Identity Female 11/22/2021 11:24 PM CDT Sexual Orientation Lesbian or Alonso 11/22/2021 11 :24 PM CDT documented as of this encounter Plan of Treatment Not on file documented as of this encounter Visit Diagnoses Diagnosis Obstructive Sleep Apnea Adult- Primary documented in this encounter
--- OUTSIDE RECORDS SUMMARY | 2023-06-29 19:06 | XMS_ITS | Encounter Summary ---
Author Name Unknown Organization [facility] Address [address] [place] [address] Care Team Providers Care Field Party Manager Name Role Phone Unavailable Primary Care Provider Unavailabl e Reason for Referral * Outpatient (Routine) - Authorized Specialty Diagnoses / Procedures Referred By Martina t Referred To Contact Sleep Medicine Diagnoses Apnea Sleep Obstructive Neisha Nolan APRN, C.N.Cheryl., M.S.N. [address] [place] [phone] [address] Phone: [phone] Referral ID Status Reason Start Date Expiration Date Visits Requested Visits Authorized [id number] Authorized Patient Preference 04/08/2023 10/07/2024 1 1 . 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 [address] [place] [phone] Apnea Sleep Obstructive (Primary Dx); Sarcoid Myocarditis (HCC) Social History Tobacco Use Types Packs/Day Years Used Date Smoking Tobacco: Former Cigarettes 0.5 10 0 02/25/1994 - 02/26/2004 Smokeless Tobacco: Never Alcohol Use Standard Drinks/Week Comments Yes 2 (1 standard drink = 0.6 oz pur e alcohol) [facility] Utilities Answer Date Recorded In the [...] often do you attend chur ch or rastafari services? More than 4 times per year 11/22/2021 Do you belong to any clubs o r organizations such as yazdanism groups, unions, fraternal or athletic groups, or [...] and heating? Not hard at all 11/22/2021 [facility] [place] of Occupat ional Health - Occupational Stress [...] Master's degree (e.g., MA, MS, Arti, MEd, RUBBER STAMP MAKER, GALA) 11/22/2021 Sex and Gender Information Value Date Recorded Sex Assigned at Female 11/22/2021 11:24 PM CDT Gender Identity Female 11/22/2021 11:24 PM CDT Sexual Orientation Lesbian or Alonso 11/22/2021 11 :24 PM CDT documented as of this encounter Plan of Treatment Not on file documented as of this encounter Visit Diagnoses Diagnosis Apnea Sleep Obstructive- Primary Sarcoid Myocarditis (HCC) documented in this encounter
--- OUTSIDE RECORDS SUMMARY | 2023-06-29 19:06 | XMS_ITS | Encounter Summary ---
Author Name Unknown Organization [facility] Address [address] [place] [address] Care Team Providers Care Criminal Research Specialist Name Role Phone Unavailable Primary Care Provider Unavailabl e Reason for Referral * Outpatient (Routine) - Closed Specialty Diagnoses / Procedures Referred By Martina t Referred To Contact Diagnoses Failure Heart (HCC) Procedures DX Chest AP or PA and Lateral 2 Views Neisha Nolan APRN, C.NCher, M.S.N. [address] [place] [phone] [facility] Referral ID Status Reason Start Date Expiration Date Visits Re quested Visits Authorized [id number] Closed 03/22/2023 03/21/2024 1 1 DOG VENDER Reason for Visit * Outpatient (Routine) - Closed Specialty Diagnoses / Procedures Referred By Contac t Referred To Contact Diagnoses Failure Heart (HCC) Procedures DX Chest AP or PA and Lateral 2 Views Neisha Nolan APRN, C.NJae., M.S.N. [address] [place] [phone] [facility] Referral ID Status Reason Start Date Expiration Date Visits Re quested Visits Authorized [id number] Closed 03/22/2023 03/21/2024 1 1 Encounter Details Date Type Department Care Team (Latest Contact Info) Description 04/04/2023 8:40 AM HOT DOG VENDER - 04/04/2023 11:59 PM HOT DOG VENDER Hospital Encounter Department of Radiology, [facility], in [place], [place] [address] [place] [address] Neisha Nolan, JESSIKA, C.N.P., M.S.N. [address] [place] [address] Failure Heart (HCC) Discharge Disposition: Home or Self Care Social History Tobacco Use Types Packs/Day Years Used Date Smoking Tobacco: Former Cigarettes 0.5 10 0 02/25/1994 - 02/26/2004 Smokeless Tobacco: Never Alcohol Use Standard Drinks/Week Comments Yes 2 (1 standard drink = 0.6 oz pur e alcohol) [facility] Utilities Answer Date Recorded In the past 12 months has e [employer], gas, oil, or water [employer] threatened to shut off services in your [...] often do you attend chur ch or catholic services? More than 4 times per year 11/22/2021 Do you belong to any clubs o r organizations such as episcopalian groups, unions, fraternal or athletic groups, or [...] and heating? Not hard at all 11/22/2021 [facility] of Occupat ional Health - Occupational [...] Master's degree (e.g., MA, MS, Arti, MEd, CHARGE PREPARATION TECHNICIAN, GAL[employer]) 11/22/2021 Sex and Gender Information Value Date Recorded Sex Assigned at Female 11/22/2021 11:24 PM CDT Gender Identity Female 11/22/2021 11:24 PM CDT Sexual Orientation Lesbian or Alonso 11/22/2021 11 :24 PM CDT documented as of this encounter Medications at Time of Discharge Medication Sig Dispensed Refills Start Date End Date albuterol 90 mcg/actuation inhaler Inhale 2 puffs every 6 (six) hours as needed. 12/13/2020 metroNIDAZOLE (METROCREAM) 0.75 % cream Apply 1 Application topically daily. 06/05/2022 mometasone-formoterol (Dulera) 200-5 mcg/actuation inhaler Inhale 2 puffs 2 (two) times a day. 09/09/2021 nortriptyline (PAMELOR) 10 mg capsule Take 20 mg by mouth at bedtime. 05/22/2021 QUEtiapine (SEROquel) 25 mg tablet Take 25 mg by mouth at bedtime. 05/22/2021 clobetasoL (TEMOVATE) 0.05 % ointment Apply 1 Application topically as needed. 01/30/2021 06/11/2023 mycophenolate (CELLCEPT) 250 mg capsule Take 250 mg by mouth every 12 (twelve) hours. 03/06/2023 04/08/2023 mycophenolate (CELLCEPT) 500 mg tablet Take 1,000 mg by mouth every 12 (twelve) hours. 06/05/2022 04/08/2023 documented as of this encounter Plan of Treatment Not on file documented as of this encounter Procedures Procedure Name Priority Date/Time Associated Diagnosis Comments DX CHEST AP OR PA AND LATERAL 2 VIEWS RAD - Routine (most inpatients and all outpatients) 04/04/2023 8:46 AM HOT DOG VENDER Failure Heart (HCC) documented in this encounter Results * DX Chest AP or PA and Lateral 2 Views (04/04/2023 8:46 AM HOT DOG VENDER) Anatomical Region Laterality Modality Chest, Thoracic RST LOS, Tho racic ARZ LOS, Thoracic FLA LOS N/A Digital Radiography Impressions 04/04/2023 9:32 AM HOT DOG VENDER Patchy perihilar nodularity with mild hilar adenopathy. Findings are unchanged since 08/15/2021 and would be consistent with sarcoidosis. Heart size at upper limits of normal. Calcified and tortuous aorta. Abdominal surgical clips. Narrative 04/04/2023 9:32 AM HOT DOG VENDER EXAM: ??DX CHEST AP OR PA AND LATERAL 2 VIEWS Procedure Note Jovanni Phillip M.D. - 04/04/2023 EXAM: DX CHEST AP OR PA AND LATERAL 2 VIEWS IMPRESSION: Patchy perihilar nodularity with mild hilar adenopathy. Findings areunchanged since 08/15/2021 and would be consistent with sarcoidosis. Heartsize at upper limits of normal. Calcified and tortuous aorta. Abdominalsurgical clips. Neisha Nolan APRN C.N.P., M.S.N. IMG D IAGNOSTIC IMAGING PROCEDURES documented in this encounter Visit Diagnoses Diagnosis Failure Heart (HCC) documented in this encounter
--- OUTSIDE RECORDS SUMMARY | 2023-06-29 19:06 | XMS_ITS | Encounter Summary ---
Author Name Unknown Organization [facility] Address [address] [place] [address] Care Team Providers Care Service Station Cashier Name Role Phone Unavailable Primary Care Provider Unavailabl e Encounter Details Date Type Department Care Team (Latest Contact Info) Description 04/04/2023 7:51 AM EXHIBIT SPECIALIST - 04/04/2023 8:39 AM EXHIBIT SPECIALIST Hospital Encounter Department of Laboratory Medicine and Pathology, [facility], in [place], [place] [address] [place] [phone] Neisha Nolan, JESSIKA, C.N.P., M.S.N. [address] [place] [phone] Failure Heart (HCC) Discharge Disposition: Home or Self Care Social History Tobacco Use Types Packs/Day Years Used Date Smoking Tobacco: Former Cigarettes 0.5 10 0 02/25/1994 - 02/26/2004 Smokeless Tobacco: Never Alcohol Use Standard Drinks/Week Comments Yes 2 (1 standard drink = 0.6 oz pur e alcohol) [facility] Utilities Answer Date Recorded In the past 12 months has e [employer], gas, oil, or water [employer] threatened to shut off services in your [...] How often do you attend chur or temple services? More than 4 times per year 11/22/2021 Do you belong to any clubs o r organizations such as confucianist groups, unions, fraternal or athletic groups, or [...] and heating? Not hard at all 11/22/2021 [facility] of Occupat ional Health - Occupational Stress [...] your living situation today? I have a [facility] place to live 03/30/2023 Education Answer Date Recorded What is the highest level of school you have completed or the highest degree you have received? Master's degree (e.g., MA, MS, Arti, MEd, ROD DRAWER, GALA) 11/22/2021 Sex and Gender Information Value [...] Procedure Name Priority Date/Time Associated Diagnosis Comments GLUCOSE, FASTING, S/P Routine 04/04/2023 8:01 AM EXHIBIT SPECIALIST Failure Heart ([facility]) LIPID PANEL, S Routine 04/04/2023 8:00 AM EXHIBIT SPECIALIST Failure Heart ([facility]) NT-PRO B-TYPE NATRIURETIC PEPTIDE (BNP), S Routine 04/04/2023 8:00 AM EXHIBIT SPECIALIST Failure Heart ([facility]) CBC WITH DIFFERENTIAL, B Routine 024 8:00 AM EXHIBIT SPECIALIST Failure Heart ([facility]) BUN (BLOOD UREA NITROGEN), S/P Routine 04/04/2023 8:00 AM EXHIBIT SPECIALIST Failure Heart ([facility]) ASPARTATE AMINOTRANSFERASE (AST), S/P Routine 04/04/2023 8:00 AM EXHIBIT SPECIALIST Failure Heart ([facility]) THYROID-STIMULATING HORMONE-SENSITIVE (S-TSH) Routine 04/04/2023 8:00 AM EXHIBIT SPECIALIST Failure Heart ([facility]) SODIUM, S/P Routine 04/04/2023 8:00 AM EXHIBIT SPECIALIST Failure Heart ([facility]) POTASSIUM, S/P Routine 04/04/2023 8:00 AM EXHIBIT SPECIALIST Failure Heart (HCC) CREATININE WITH EGFR, S/P Routine 04/04/2023 8:00 AM EXHIBIT SPECIALIST Failure Heart (HCC) BICARBONATE, B/S/P Routine 04/04/2023 8: 00 AM EXHIBIT SPECIALIST Failure Heart (HCC) documented in this encounter Results * Glucose, Fasting (04/04/2023 8:01 AM EXHIBIT SPECIALIST) Glucose, P 85 70 - 100 mg/dL 04/04/2023 8:59 AM EXHIBIT SPECIALIST DTL Last Intake 1 hr 04/04/2023 8:41 AM EXHIBIT SPECIALIST DTL Blood (Blood, Venous) 04/04/2023 8:01 AM EXHIBIT SPECIALIST 04/04/2023 8:41 AM EXHIBIT SPECIALIST Yas Schultz APRNN.P., M.S.N. [place] [address], [facility] [place] [address] * NT-Pro B-Type Natriuretic Peptide (BNP) (04/04/2023 8:00 AM EXHIBIT SPECIALIST) Pathologist [facility] NT-Pro BNP 151 <=226 pg/mL 04/04/2023 9:16 AM EXHIBIT SPECIALIST DTL Comment: NT-proBNP values less than 300 [...] failure. Blood (Blood, Venous) 04/04/2023 8:00 AM EXHIBIT SPECIALIST 04/04/2023 8:41 AM EXHIBIT SPECIALIST Agustina Schultz APRN.P., M.S.N. LAB B LOOD ADD-ON [facility] [address] 200 [place] [address] * (ABNORMAL) Potassium (04/04/2023 8:00 AM EXHIBIT SPECIALIST) Potassium, S 3.4(L) 3.6 - 5.2 mmol/L 04/04/2023 9:16 AM EXHIBIT SPECIALIST DTL Blood (Blood, Venous) 04/04/2023 8:00 AM EXHIBIT SPECIALIST 04/04/2023 8:41 AM EXHIBIT SPECIALIST Neisha Nolan APRN, C.N.P., M.S.N. LAB B LOOD ADD-ON Performing Organization Address City/[facility]/ZIP Co de Phone Number [facility] [address] 200 [place] [address] * Bicarbonate (04/04/2023 8:00 AM EXHIBIT SPECIALIST) Bicarbonate, S 29 22 - 29 mmol/L 04/04/2023 9:16 AM EXHIBIT SPECIALIST DTL Blood (Blood, Venous) 04/04/2023 8:00 AM EXHIBIT SPECIALIST 04/04/2023 8:41 AM EXHIBIT SPECIALIST Yas Schultz APRNNJae., M.S.N. LAB B LOOD ADD-ON [facility] [address] 200 [place] [address] * S-TSH (Thyroid-Stimulating Hormone - Sensitive) (04/04/2023 8:00 AM EXHIBIT SPECIALIST) TSH, Sensitive 3.2 0.3 - 4.2 mIU/L 04/04/2023 9:16 AM EXHIBIT SPECIALIST DTL Blood (Blood, Venous) 04/04/2023 8:00 AM EXHIBIT SPECIALIST 04/04/2023 8:41 AM EXHIBIT SPECIALIST Neisha Kam Nolan APRN, C.N.P., M.S.N. LAB B LOOD ADD-ON [facility] [address] [place] [address], [facility] DTL [facility] [address] [place] [address] * (ABNORMAL) CBC with Differential, Blood (04/04/2023 8:00 AM EXHIBIT SPECIALIST) Hemoglobin 12.3 11.6 - 15.0 g/dL 04/04/2023 8:36 AM EXHIBIT SPECIALIST DTL Hematocrit 38.3 35.5 - 44.9 % 04/04/2023 8:36 AM EXHIBIT SPECIALIST DTL Erythrocytes 4.58 3.92 - 5.13 x10(12)/L 04/04/2023 8:36 AM EXHIBIT SPECIALIST DTL MCV 83.6 78.2 - 97.9 fL 04/04/2023 8:36 AM EXHIBIT SPECIALIST DTL RBC Distrib Width 15.0 12.2 - 16.1 % 04/04/2023 8:36 AM EXHIBIT SPECIALIST DTL Platelet Count 240 157 - 371 x10(9)/L 04/04/2023 8:36 AM EXHIBIT SPECIALIST DTL Leukocytes 6.2 3.4 - 9.6 x10(9)/L 04/04/2023 8:36 AM EXHIBIT SPECIALIST DTL Neutrophils 4.79 1.56 - 6.45 x10(9)/L 04/04/2023 8:36 AM EXHIBIT SPECIALIST DHPM Lymphocytes 0.35(L) 0.95 - 3.07 x10(9)/L 04/04/2023 8:36 AM EXHIBIT SPECIALIST DTL Monocytes 0.77 0.26 - 0.81 x10(9)/L 04/04/2023 8:36 AM EXHIBIT SPECIALIST DTL Eosinophils 0.18 0.03 - 0.48 x10(9)/L 04/04/2023 8:36 AM EXHIBIT SPECIALIST DTL Basophils 0.06 0.01 - 0.08 x10(9)/L 04/04/2023 8:36 AM EXHIBIT SPECIALIST DTL Blood (Blood, Venous) 04/04/2023 8:00 AM EXHIBIT SPECIALIST 04/04/2023 8:27 AM EXHIBIT SPECIALIST Neisha Kam Nolan APRN, C.N.P., M.S.N. LAB B LOOD ADD-ON [facility] [address] [place] [address], [facility] DTL [facility] [address] [place] [address] [facility] 200 [place] [address] * (ABNORMAL) Lipid Panel (04/04/2023 8:00 AM EXHIBIT SPECIALIST) Triglycerides 144 mg/dL 04/04/2023 9:16 AM EXHIBIT SPECIALIST DTL Comment: ----REFERENCE VALUE---- Normal: <150 mg/dL Borderline High: 150-199 mg/dL High: 200-499 mg/dL Very High: > or =500 mg/dL Cholesterol, Total 180 mg/dL 2023 9:16 AM EXHIBIT SPECIALIST DTL Comment: ----REFERENCE VALUE---- Desirable: < 200 mg/dL Borderline High: 200 - 239 mg/dL High: > or = 240 mg/dL Cholesterol, LDL, Calculated 107 mg/dL 04/04/2023 9:16 AM EXHIBIT SPECIALIST DTL Comment: ----REFERENCE VALUE---- Desirable: <100 mg/dL Above Desirable: 100-129 mg/dL Borderline High: 130-159 mg/dL High: 160-189 mg/dL Very High: >=190 mg/dL ----ADDITIONAL INFORMATION---- LDL cholesterol calculated using the Gardner/NIH equation. Cholesterol, HDL, S 48(L) >=50 mg/dL 04/04/2023 9:16 AM EXHIBIT SPECIALIST DTL Cholesterol, Non-HDL, Calculated 132 mg/dL 04/04/2023 9:16 AM EXHIBIT SPECIALIST DTL Comment: ----REFERENCE VALUE---- Desirable: <130 mg/dL Above Desirable: 130-159 mg/dL Borderline High: 160-189 mg/dL High: 190-219 mg/dL Very High: > or =220 mg/dL Fasting (8 HR or more) No 04/04/2023 8:41 AM EXHIBIT SPECIALIST DTL Blood (Blood, Venous) 04/04/2023 8:00 AM EXHIBIT SPECIALIST 04/04/2023 8:41 AM EXHIBIT SPECIALIST Neisha Nolan APRN, C.N.P., M.S.N. LAB B LOOD ADD-ON Performing Organization Address City/[facility] Co de Phone Number [facility] 200 [place] [address] * BUN (Blood Urea Nitrogen) (04/04/2023 8:00 AM EXHIBIT SPECIALIST) BUN (Blood Urea Nitrogen), S 12 6 - 21 mg/dL 04/04/2023 9:16 AM EXHIBIT SPECIALIST DT Blood (Blood, Venous) 04/04/2023 8:00 AM EXHIBIT SPECIALIST 04/04/2023 8:41 AM EXHIBIT SPECIALIST Neisha Nolan APRN, C.N.P., M.S.N. LAB B LOOD ADD-ON Performing Organization Address [facility] Co de Phone Number [facility] 200 [place] [address], [place] [address] * AST (Aspartate Aminotransferase) (04/04/2023 8:00 AM EXHIBIT SPECIALIST) Aspartate Aminotransferase (AST), S 18 8 - 43 U/L 04/04/2023 9:16 AM EXHIBIT SPECIALIST DTL Blood (Blood, Venous) 04/04/2023 8:00 AM EXHIBIT SPECIALIST 04/04/2023 8:41 AM EXHIBIT SPECIALIST Neisha Nolan APRN, C.N.P., M.S.N. LAB B LOOD ADD-ON [facility] [address] [place] [address], [facility] 200 [place] [address] * Creatinine with Estimated GFR (04/04/2023 8:00 AM EXHIBIT SPECIALIST) Creatinine 0.95 0.59 - 1.04 mg/dL 04/04/2023 9:16 AM EXHIBIT SPECIALIST DTL Estimated GFR (eGFR) 69 >=60 mL/min/BSA 04/04/2023 9:16 AM EXHIBIT SPECIALIST DTL Comment: Estimated GFR calculated using the 2020 CKD_EPI creatinine equation. Blood (Blood, Venous) 04/04/2023 8:00 AM EXHIBIT SPECIALIST 04/04/2023 8:41 AM EXHIBIT SPECIALIST Neisha Nolan APRN, C.N.P., M.S.N. LAB B LOOD ADD-ON Performing Organization Address City/[facility]/ZIP Co de Phone Number [facility] [address] [place] [address], [facility] 200 [place] [address] * Sodium (04/04/2023 8:00 AM EXHIBIT SPECIALIST) Sodium, S 145 135 - 145 mmol/L 04/04/2023 9:16 AM EXHIBIT SPECIALIST DTL Blood (Blood, Venous) 04/04/2023 8:00 AM EXHIBIT SPECIALIST 04/04/2023 8:41 AM EXHIBIT SPECIALIST Neisha Nolan APRN, C.N.P., M.S.N. LAB B LOOD ADD-ON [facility] [address] [place] [address], [facility] 200 [place] [address] documented in this encounter Visit Diagnoses Diagnosis Failure Heart (HCC) documented in this encounter
--- OUTSIDE RECORDS SUMMARY | 2023-06-29 19:06 | XMS_ITS | Encounter Summary ---
Author Name Unknown Organization [facility] Address [address] [place] [address] Care Team Providers Care Brick And Block Mason Name Role Phone Unavailable Primary Care Provider Unavailabl e Encounter Details Date Type Department Care Team ([facility] st Contact Info) Description 06/12/2023 11:30 AM CDT Education Division of Rheumatology in [place], [place] [address] [place] [phone] Olivia Arreguin M.D. [address] [place] [phone] Clark Beebe R.NSandie [address] [place] [phone] Sarcoidosis; Immunodeficiency Due To Drugs (HCC) Social History Tobacco Use Types Packs/Day Years Used Date Smoking Tobacco: Former Cigarettes 0.5 10 0 02/25/1994 - 02/26/2004 Passive Smoke Exposure: Past Smokeless Tobacco: Never Alcohol Use Standard Drinks/Week Comments Yes 2 (1 standard drink = 0.6 oz pur e alcohol) [facility] Utilities Answer Date Recorded In the past [...] any clubs o r organizations such as jainism groups, unions, fraternal or [...] and heating? Not hard at all 11/22/2021 [facility] [place] of Occupat ional Health - Occupational Stress [...] your living situation today? I have a [facility] place to live 03/30/2023 Education Answer Date Recorded What is the highest level of school you have completed or the highest degree you have received? Master's degree (e.g., MA, MS, Arti, MEd, BRYOLOGIST, GALA) 11/22/2021 Sex and Gender Information Value Date Recorded Sex Assigned at Female 11/22/2021 11:24 PM CDT Gender Identity Female 11/22/2021 11:24 PM CDT Sexual Orientation Lesbian or Alonso 11/22/2021 11 :24 PM CDT documented as of this encounter Progress Notes * Clark Beebe, R.N. - 06/12/2023 11:30 AM CDT SUBJECTIVE REASON FOR VISIT Medication Education HISTORY OF PRESENT ILLNESS Ms. Rice has a diagnosis of sarcoidosis . CASPER Gonzalez and Olivia Arreguin MD requested nursing assistance with medication education. ASSESSMENT / PLAN Reviewed education on methotrexate. Discussed purpose, administration, precautions, risks, side effects, lab monitoring, and when to contact your provider. All questions were answered. Subcutaneous administration was demonstrated and patient was able to teach back. Labs locally with lab letter Nanci did ask about thrush that she gets when she uses prednisone. Will ask providers about this. 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
--- OUTSIDE RECORDS SUMMARY | 2023-06-29 19:06 | XMS_ITS | Encounter Summary ---
Author Name Unknown Organization [facility] Address [address] [place] [address] Care Team Providers Care Sports Director Name Role Phone Unavailable Primary Care Provider Unavailabl e Encounter Details Date Type Department Care Team (Late st Contact Info) Description 05/07/2023 Orders Only Division of Gastroenterology in [place], [place] [address] [place] [phone] Emeterio Friedman M.D. [address] [place] [phone] Genetic Susceptibility To Disease Social History Tobacco Use Types Packs/Day Years Used Date Smoking Tobacco: Former Cigarettes 0.5 10 0 02/25/1994 - 02/26/2004 Smokeless Tobacco: Never Alcohol Use Standard Drinks/Week Comments Yes 2 (1 standard drink = 0.6 oz pur e alcohol) [facility] Utilities Answer Date Recorded In the past 12 months has [facility] 1-800-DENTIST, gas, oil, or water [employer] threatened to shut off services in your [...] How often do you attend chur or mandaeism services? More than 4 times per year [...] and heating? Not hard at all 11/22/2021 [facility] of Occupat ionvt Health - Occupational Stress Questionnaire Answer Date [...] your living situation today? I have a [facility] place to live 03/30/2023 Education Answer Date Recorded What is the highest level of school you have completed or the highest degree you have received? Master's degree (e.g., MA, MS, Arti, MEd, SURVEILLANCE OFFICER, GALA) 11/22/2021 Sex and Gender Information Value Date Recorded Sex Assigned at Female 11/22/2021 11:24 PM CDT Gender Identity Female 11/22/2021 11:24 PM CDT Sexual Orientation Lesbian or Alonso 11/22/2021 11 :24 PM CDT documented as of this encounter Plan of Treatment Not on file documented as of this encounter Procedures Procedure Name Priority Date/Time Associated Diagnosis Comments EXT TAPESTRY Routine 02/05/2022 12:00 AM AEGIS CONSOLE OPERATOR TRACK Genetic Susceptibility To Disease documented in this encounter Results * EXT Tapestry (02/05/2022 12:00 AM AEGIS CONSOLE OPERATOR TRACK) Gene Studied BRCA1,BRCA2,MLH1,MSH 2, MSH6,PMS2,EPCAM,APOB,L DLR,LDLRAP1,PCSK9 03/12/2022 12:00 AM AEGIS CONSOLE OPERATOR TRACK CHARANJIT Genetic Disease Assessed Evaluation of 11 genes associated with Hereditary Breast and Ovarian Cancer, Eric Syndrome and Familial Hypercholesterolemia. 03/12/2022 12:00 AM Hypereight Genetic Analysis Overall Interpretation Negative results through Tapestry do not replace diagnostic testing for patients with a personal or family history of cancer/hypercholestero lemia due to limitations with methodology. Consider a referral to a genetic counselor for diagnostic testing if warranted. 03/12/2022 12:00 AM DivvyshotI Genetic Analysis Report See Tapestry PDF Report No actionable gene changes were detected in the genes that cause Familial Hypercholesterolemia. The genes tested for this condition were APOB, LDLR, LDLRAP1, and PCSK9.No actionable gene changes were detected in the genes that cause Hereditary Breast and Ovarian Cancer. The genes tested for this condition were BRCA1 and BRCA2.No actionable gene changes were detected in the genes that cause Eric Syndrome. The genes tested for this condition were MLH1, MSH2, MSH6, PMS2 and EPCAM. DNA extracted from this individual's sample was captured and enriched using a custom set of reagents ([employer] Track+ chemistry). Targeted regions were sequenced using an Illumina DNA sequencing system. Your sequence was matched to a modified version of the davis standard reference genome (GRCh38). Variant calling was completed using a customized version of [email or web address]'s [employer] software, requiring 20x coverage for validated variant calls. Copy Number Variants (CNVs) were called using a proprietary bioinformatics pipeline that compared the coverage profile of your sample with the coverage profiles of other reference set samples. [facility] GeneNasty Gal then analyzed the generated variant data for the exons and 10 bp of flanking intronic sequence (and select tagged intronic variants) of the 11 genes included in BlackJet from the [employer] Database. Your sample was reviewed for single nucleotide variants (SNVs), indels up to 20 bp in length, and CNVs that are known or predicted to be actionable. NOTE: This assay has limited sensitivity to CNVs smaller than a few exons. APOB, PCSK9, and LDLR interpretation and reporting is specific to the Familial Hypercholesterolemia phenotype. Variants associated with other phenotypes such as Hypobetalipoproteinemi a are not included. Some known complex variants like the inversion of exons 1-7 in the MSH2 gene (Roselyn inversion), exons 11-15 of the PMS2 gene, or variants within or immediately adjacent to long homopolymer runs are not analyzed or reported. There are regions that are not covered, such as deep intronic, promoter, and enhancer regions. This assay cannot detect all variants known to increase disease risk. Other clinical diagnostic testing for these conditions could identify variants not detected by this test. If you have had previous testing, these results should be taken into consideration during risk assessments and medical management. 03/12/2022 12:00 AM AEGIS CONSOLE OPERATOR TRACK CHARANJIT Human Reference Sequence Assembly [id number] 03/12/2022 12:00 AM AEGIS CONSOLE OPERATOR TRACK CHARANJIT Saliva (Mouth) 02/05/2022 Emeterio Friedman M.D. LAB GENETI C TESTING HELIX Loccit (ML4D) [id number] [facility], [address] [place] [address], [facility] CHARANJIT HELIX [address] [facility], [address]. [place] [address] documented in this encounter Visit Diagnoses Diagnosis Genetic Susceptibility To Disease documented in this encounter
--- OUTSIDE RECORDS SUMMARY | 2023-06-29 19:06 | XMS_ITS | Encounter Summary ---
Author Name Unknown Organization [facility] Address [address] [place] [address] Care Team Providers Care Wreath Maker Name Role Phone Unavailable Primary Care Provider Unavailabl e Encounter Details Date Type Department Care Team (Latest Contact Info) Description 06/12/2023 12:00 PM CDT Hospital Encounter Department of Laboratory Medicine and Pathology, [facility], in [place], [place] [address] [place] [address] Olivia Arreguin M.D. [address] [place] [address] Sarcoidosis; Immunodeficiency Due To Drugs (HCC) Discharge Disposition: Home or Self Care Social History Tobacco Use Types Packs/Day Years Used Date Smoking Tobacco: Former Cigarettes 0.5 10 0 02/25/1994 - 02/26/2004 Passive Smoke Exposure: Past Smokeless Tobacco: Never Alcohol Use Standard Drinks/Week Comments Yes 2 (1 standard drink = 0.6 oz pur e alcohol) [facility] Utilities Answer Date Recorded In the past 12 months has e [employer], gas, oil, or water [facility] threatened to shut off services in your [...] How often do you attend chur or pentecostal services? More than 4 times per year 11/22/2021 Do you belong to any clubs o r organizations such as restorationism groups, unions, fraternal or athletic groups, or [...] and heating? Not hard at all 11/22/2021 [facility] of Occupat ional Health - Occupational [...] your living situation today? I have a [facility] place to live 03/30/2023 Education Answer Date Recorded What is the highest level of school you have completed or the highest degree you have received? Master's degree (e.g., MA, MS, Arti, MEd, PRINCIPAL SYSTEM SOFTWARE ENGINEER, GALA) 11/22/2021 Sex and Gender Information Value [...] 25 mg by mouth at bedtime. 05/22/2021 documented as of this encounter Plan of Treatment Not on file documented as of this encounter Procedures Procedure Name Priority Date/Time Associated Diagnosis Comments DIPSTICK, U Routine 06/12/2023 12:31 PM CDT MICROSCOPIC AUTOMATED Routine 06/12/2023 12:31 PM CDT PH, U Routine 06/12/2023 12:31 PM CDT PROTEIN/CREATININE RATIO, RANDOM, URINE Routine 06/12/2023 12:31 PM CDT Sarcoidosis Immunodeficiency Due To Drugs (HCC) OSMOLALITY, U Routine 06/12/2023 12:31 PM CDT CALCIUM, RANDOM, U Routine 06/12/2023 12 :31 PM CDT Sarcoidosis Immunodeficiency Due To Drugs (HCC) URINALYSIS WITH MICROSCOPIC Routine 06/12/2023 12:31 PM CDT 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 Co de Phone Number [facility] [address] [place], [place] [phone] [place] [address] 200 [place] [address] * pH, Urine (06/12/2023 12:31 PM CDT) pH, U 5.8 4.5 - 8.0 06/12/2023 1:4 8 PM CDT DTL Urine 06/12/2023 12:3 1 PM CDT 06/12/2023 12:53 PM CDT Olivia Arreguin M.D. LAB URINE ALEXANDER OLSEN Performing Organization Address City/[facility] Co de Phone Number [facility] [address] [place], [place] [phone] [place] [address] 200 [place] [address] * Osmolality, Urine (06/12/2023 12:31 PM CDT) Osmolality, U 804 150 - 1150 mOsm/kg 06/12/2023 1:48 PM CDT DTL Urine 06/12/2023 12:3 1 PM CDT 06/12/2023 12:53 PM CDT Olivia Arreguin M.D. LAB URINE ALEXANDER OLSEN Performing Organization Address City/[facility] Co de Phone Number [facility] [address] [place], [place] [phone] [place] [address] 200 [place] [address] * Microscopic Automated (06/12/2023 12:31 PM CDT) [...] LAB URINE AYANAE RAÚL Performing Organization Address [facility] Co de Phone Number [facility] [address] [place], [place] [phone] [place] [phone] * Protein/Creatinine Ratio, Random, Urine (06/12/2023 12:31 [...] LAB URINE ALEXANDER OLSEN Performing Organization Address City/[facility]/ZIP Co de Phone Number [facility] [address] [place] [address], [address] [address] * Urinalysis, with Microscopic: Urine, Midstream (06/12/2023 [...] PM CDT 06/12/2023 12:53 PM CDT Olivia Arrgeuin M.D. LAB URINE ALEXANDER OLSEN Performing Organization Address City/[facility]/ZIP Co de Phone Number [facility] [address] [place] [address], [facility] DTL [facility] [address] [place] [address] * Calcium/Creatinine Ratio, Random, Urine (06/12/2023 12:31 [...] LAB URINE ALEXANDER OLSEN Performing Organization Address City/[facility]/ZIP Co de Phone Number [facility] [address] [place] [address], [facility] DTL [facility] [address] [place] [address] documented in this encounter Visit Diagnoses Diagnosis 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
--- OUTSIDE RECORDS SUMMARY | 2023-06-29 19:06 | XMS_ITS | Encounter Summary ---
Author Name Unknown Organization [facility] Address [address] [place] [address] Care Team Providers Care Boiler Riveter Name Role Phone Unavailable Primary Care Provider Unavailabl e Encounter Details Date Type Department Care Team (Latest Contact Info) Description 06/12/2023 12:01 PM CDT - 06/12/2023 12:55 PM CDT Hospital Encounter Department of Laboratory Medicine and Pathology, [facility] in [place], [place] [address] [place] [phone] Olivia Arreguin M.D. [address] [place] [phone] Sarcoidosis; Immunodeficiency Due To Drugs (HCC) Discharge [...] In the past 12 months has e [employer], gas, oil, or water [employer] threatened to shut off services in your [...] How often do you attend chur or episcopal services? More than 4 times per year 11/22/2021 Do you belong to any clubs o r organizations such as jain groups, unions, fraternal or athletic groups, or [...] and heating? Not hard at all 11/22/2021 [facility] [place] of Occupat ional Health - Occupational Stress [...] living situation today? I have a [facility] place to live 03/30/2023 Education Answer Date Recorded What is the highest level of school you have completed or the highest degree you have received? 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 LAB BLOOD ADD- ON [facility] [address] [place] [address], [facility] [address] [place] [address] * HBc Total Ab, Serum (06/12/2023 12:28 PM CDT) Pathologist [facility] HBc Total Ab, S Negative Negative 06/12/2023 8:08 PM CDT [facility] Blood (Blood, Venous) 06/12/2023 12:28 PM CDT 06/12/2023 4:50 PM CDT Olivia Arreguin M.D. LAB MICROBIOLO GY - BLOOD ORDERABLES [facility] [address] [place] [address] [facility] [address] [place] [address] * HBs Antibody, Serum (06/12/2023 12:28 PM CDT) Pathologist [facility] HBs Antibody, S Negative 06/12/2023 8:08 PM CDT [facility] Comment: Patient is presumed to be not immune to infection with HBV. ----REFERENCE VALUE---- Unvaccinated: Negative Vaccinated: Positive HBs Antibody, Quantitative, S <5.0 mIU/mL 06/12/2023 8:08 PM CDT [facility] Comment: ----REFERENCE VALUE---- Unvaccinated: <5.0 Vaccinated: >=12.0 Blood (Blood, Venous) 06/12/2023 12:28 PM CDT 06/12/2023 4:50 PM CDT Olivia Arreguin M.D. LAB MICROBIOLO GY - BLOOD ORDERABLES [facility] [address] [place] [address] [facility] [address] [place] [address] * (ABNORMAL) Comprehensive Metabolic Panel (06/12/2023 12:28 PM CDT) [facility] Potassium, S 4.2 3.6 - 5.2 [...] LAB BLOOD ADD- ON Performing Organization Address City/[facility]/ZIP Co de Phone Number [facility] 200 [place] [address], [address] [address] * Sedimentation Rate (06/12/2023 12:27 PM CDT) Sedimentation Rate, B 16 2 - 22 mm/h 06/12/2023 1:57 PM CDT DTL Blood (Blood, Venous) 06/12/2023 12:27 PM CDT 06/12/2023 12:51 PM CDT Olivia Arreguin M.D. LAB BLOOD ADD- ON Performing Organization Address City/[facility]/ZIP Co de Phone Number [facility] [address] [place] [address], [facility] [address] [place] [address] * HCV Ab w/Reflex to HCV PCR, Serum (06/12/2023 12:27 PM CDT) HCV Ab, S Negative Negative 06/14/2023 10:56 AM CDT [facility] Comment: Consumption of high-dose biotin supplement within 12 hours of blood collection for this test can cause false-negative results. Blood (Blood, Venous) 06/12/2023 12:27 PM CDT 06/12/2023 4:50 PM CDT Olivia Arreguin M.D. LAB MICROBIOLO GY - BLOOD ORDERABLES Performing Organization Address City/[facility]/ZIP Co de Phone Number [facility] [address] [place] [address] [facility] [address] [place] [address] * Hepatitis B Surface Antigen (06/12/2023 12:27 PM CDT) Pathologist [facility] HBs Antigen, S Negative Negative 06/14/2023 10:56 AM CDT [facility] Blood (Blood, Venous) 06/12/2023 12:27 PM CDT 06/12/2023 4:50 PM CDT Olivia Arreguin M.D. LAB MICROBIOLO GY - BLOOD ORDERABLES Performing Organization Address [facility] Co de Phone Number [facility] [address] [place] [address] [facility] [address] [place] [address] * 1,25-Dihydroxyvitamin D (06/12/2023 12:27 PM CDT) [facility] 1, 25 DIHYDROXYVITAMIN D, S 41 18 - 78 pg/mL 06/14/2023 2:01 PM CDT [facility] Comment: ----ADDITIONAL INFORMATION---- This test was developed and its performance characteristics determined by [facility] in a manner consistent with CLIA requirements. This test has not been cleared or approved by the U.S. Food and Drug Administration. Blood (Blood, Venous) 06/12/2023 12:27 PM CDT 06/13/2023 7:43 AM CDT Olivia Arreguin M.D. LAB BLOOD ADD- ON Performing Organization Address City/[facility]/ZIP Co de Phone Number [facility] [address] [place] [address] [facility] [address] [place] [address] [place] [address] * (ABNORMAL) 25-Hydroxyvitamin D2 and D3 (06/12/2023 12:27 PM CDT) Pathologist [facility] 25-Hydroxy D2 <4.0 ng/mL 06/17/2023 1:31 PM CDT SDS 25-Hydroxy D3 16 ng/mL 06/17/2023 1:31 PM CDT SDS 25-Hydroxy D Total 16(L) ng/mL 2023 1:31 PM CDT [facility] Comment: Interpretation: 10-19 ng/mL (mild to moderate deficiency) ----REFERENCE VALUE---- 25-HYDROXY D TOTAL (D2+D3) Optimum levels in the healthy population are 20-50, patients with bone disease may benefit from higher levels within this range. ----ADDITIONAL INFORMATION---- This test was developed and its performance characteristics determined by [facility] in a manner consistent with CLIA requirements. This test has not been cleared or approved by the U.S. Food and Drug Administration. Blood (Blood, Venous) 06/12/2023 12:27 PM CDT 06/13/2023 7:17 AM CDT Olivia Arreguin M.D. LAB BLOOD ADD- ON [facility] [address] [place] [address] [facility] [address] [place] [address] [place] [address] * (ABNORMAL) CBC with Differential, Blood (06/12/2023 12:27 PM CDT) [facility] Hemoglobin 13.4 11.6 - 15.0 g/dL [...] Olivia Arreguin M.D. 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
--- OUTSIDE RECORDS SUMMARY | 2023-06-29 19:06 | XMS_ITS | Encounter Summary ---
Author Name Unknown Organization [facility] Address [address] [place] [address] Care Team Providers Care Pharmacy Technician Program Director Name Role Phone Unavailable Primary Care Provider Unavailabl e Encounter Details Date Type Department Care Team (Late st Contact Info) Description 06/21/2023 Documentation Division of Rheumatology in [place], [place] [address] [place] [phone] Rajat Pizarro M.B.B.S. [address] [place] [address] Social History Tobacco Use Types Packs/Day Years Used Date Smoking Tobacco: Former Cigarettes 0.5 10 0 02/25/1994 - 02/26/2004 Passive Smoke Exposure: Past Smokeless Tobacco: Never Alcohol Use Standard Drinks/Week Comments Yes 2 (1 standard drink = 0.6 oz pur e alcohol) [facility] Utilities Answer Date Recorded In the past 12 months has [facility] [employer], gas, oil, or water [employer] threatened to shut off services in your [...] week 11/22/2021 [facility] often [facility] you attend [facility] or [facility] services? More than 4 times per year 11/22/2021 Do you belong to any clubs o r organizations such as moravian groups, unions, fraternal or athletic groups, or [...] and heating? Not hard at all 11/22/2021 [facility] of Occupat ional Health - Occupational [...] your living situation today? I have a [facility] place to live 03/30/2023 Education Answer Date Recorded What is the highest level of school you have completed or the highest degree you have received? Master's degree (e.g., MA, MS, Arti, MEd, MACHINE SHOP SUPERVISOR, GALA) 11/22/2021 Sex and Gender Information Value Date Recorded Sex Assigned at Female 11/22/2021 11:24 PM CDT Gender Identity Female 11/22/2021 11:24 PM CDT Sexual Orientation Lesbian or Alonso 11/22/2021 11 :24 PM CDT documented as of this encounter Progress Notes * Rajat Pizarro M.B.B.S. - 06/21/2023 10:04 AM CDT Rheumatology Miscellaneous Note Patient not seen, chart reviewed Results Lab Results Component Value Date/Time SEDRATE 16 06/12/2023 12:27 PM CRP 5.2 (H) 06/12/2023 12:28 PM CRP <3.0 11/21/2021 10:02 AM HGB 13.4 06/12/2023 12:27 PM HGB 12.3 04/04/2023 08:00 AM HGB 11.9 (L) 06/05/2022 02:55 PM HGB 12.2 04/16/2022 11:38 AM HGB 14.6 10/12/2021 07:46 AM WBC 5.8 06/12/2023 12:27 PM WBC 6.2 04/04/2023 08:00 AM WBC 6.4 06/05/2022 02:55 PM WBC 6.5 04/16/2022 11:38 AM PLT 227 06/12/2023 12:27 PM PLT 240 04/04/2023 08:00 AM PLT 237 06/05/2022 02:55 PM PLT 203 04/16/2022 11:38 AM AST 17 06/12/2023 12:28 PM AST 18 04/04/2023 08:00 AM AST 17 12/28/2021 04:11 PM AST 15 08/31/2021 09:44 AM ALT 16 06/12/2023 12:28 PM ALT 26 12/28/2021 04:11 PM ALT 20 11/21/2021 10:02 AM CREATININE 1.07 (H) 06/12/2023 12:28 PM CREATININE 0.95 04/04/2023 08:00 AM CREATININE 0.85 06/05/2022 02:55 PM CREATININE 0.86 02/21/2022 06:54 AM HEPBSAG Negative 06/12/2023 12:27 PM HEPBCAB Negative 06/12/2023 12:28 PM HEPCAB Negative 06/12/2023 12:27 PM 25OHVITDTTL 16 (L) 06/12/2023 12:27 PM Lab Results Component Value Date CLARITYU Clear 06/12/2023 COLORU Yellow 06/12/2023 RBCU None Seen 06/12/2023 NITRITEU Negative 06/12/2023 LEUKOCYTESU Negative 06/12/2023 PROTEINQUALU 17 06/12/2023 GLUCOSEU Negative 06/12/2023 KETONESU Negative 06/12/2023 PHURINE 5.8 06/12/2023 DEXA scan showed osteopenia with low fracture risk (FRAX) FRAX (10 yr probability) adjusted for TBS: Major Osteoporotic Fracture: 4.4 % Hip Fracture: 0.2 % Methotrexate education completed, plan for lab monitoring locally Assessment: #1 Multiorgan sarcoidosis including pulmonary, cardiac #2 Osteopenia #3 Vaccinations and Health maintenance #4 Lab monitoring #5 Borderline Creatinine Prednisone Weeks 1 -4: 30 mg per day Weeks 5-8: 25 mg per day Weeks 9-12: 20 mg per day; discontinue Atovaquone Weeks 13-16: 15 mg per day Weeks 17 & 18: 10 mg per day Weeks 19 & 20: 7.5 mg per day Weeks 21 & 22: 5 mg per day Weeks 23 & 24: 2.5 mg per day Week 25: Discontinue prednisone Additional Medications Atovaquone (to prevent lung infection while taking prednisone): 750 mg/5 ml suspension; 5 ml twice daily as long as you are taking >15 mg prednisone daily Folic Acid (to preserve blood cell counts while taking Methotrexate): 1 mg by mouth every day Calcium (to protect bone strength while taking prednisone and for osteopenia): 1728-6925 mg total daily, calcium citrate preferred; buy over the counter Vitamin D (to protect bone strength while taking prednisone and for osteopenia): 800-1000 IU total daily; buy over the counter Omeprazole [(Prilosec) to protect stomach while taking prednisone]: 20 mg every day while taking any dose of prednisone; may buy over the counter if less expensive than prescription Additional Recommendations Medication Monitoring for Methotrexate : CBC (complete blood count with differential), AST and ALT (liver function tests), creatinine (kidney function test) At the end of month 1 At the end of month 2 At the end of month 3 Every three months thereafter 2. Check fasting glucose and fasting lipid panel every 3 months with primary care provider while onprednisone 3. Vaccinations should be updotdate including Influenza, pneumonia, shingles (Shingrix), RSV and COVID 19 4. Please contact us and hold methotrexate if any infections 5. Avoid oral NSAIDS and dehydration while on methotrexate 6. Given osteopenia and prednisone use: A. She is advised to continue to use care in situations likely to provoke falls. B. Advised caution when lifting more than 10 to 15 pounds. C.. Recommend walking or other low impact/low intensity exercise 3 to 4 days each week for 20 to 30minutes each day should help protect skeletal integrity. D. Bone density test should be rechecked in 12-18 months FOLLOW-UP Long-term management and follow-up: Ms. Rice will continue longitudinal management and follow-up in the Division of Rheumatology at [facility]. Next appointment in 6 months along with cardiology sarcoidosis clinic Rheumatology-related medications: Prescriptions, laboratory monitoring, and refills will be managedby the Division of Rheumatology at [facility]. Disease flares or relapse: Division of Rheumatology flare management protocols will be implemented. Rajat SHIRLEY Rheumatology documented in this encounter Plan of Treatment Not on file documented as of this encounter Visit Diagnoses Diagnosis Sarcoidosis- Primary Monitoring For Therapeutic Drug Therapy Osteopenia documented in this encounter
--- OUTSIDE RECORDS SUMMARY | 2023-06-29 19:06 | XMS_ITS | Encounter Summary ---
Author Name Unknown Organization [facility] Address [address] [place] [address] Care Team Providers Care Creative Specialist Name Role Phone Unavailable Primary Care Provider Unavailabl e Reason for Referral * Outpatient (Routine) - Closed Specialty Diagnoses / Procedures Referred By Contac t Referred To Contact Diagnoses Sarcoidosis Corticosteroid Treatment Fpc Systemic Immunodeficiency Due To Drugs (HCC) Procedures BMD Bone Density Spine Hips Olivia Arreguin M.D. [address] [place] [phone] [facility] Referral ID Status Reason Start Date Expiration Date Visits Re quested Visits Authorized [id number] Closed 06/12/2023 06/11/2024 1 1 Reason for Visit * Outpatient (Routine) - Closed Specialty Diagnoses / Procedures Referred By Contac t Referred To Contact Diagnoses Sarcoidosis Corticosteroid Treatment Fpc Systemic Immunodeficiency Due To Drugs (HCC) Procedures BMD Bone Density Spine Hips Olivia Arreguin M.D. 200 [place] [phone] [facility] Referral ID Status Reason Start Date Expiration Date Visits Re quested Visits Authorized [id number] Closed 06/12/2023 06/11/2024 1 1 Encounter Details Date Type Department Care Team (Latest Contact Info) Description 06/12/2023 12:56 PM CDT - 06/12/2023 11:59 PM CDT Hospital Encounter Department of Radiology, [facility], in [place], [place] [address] [place] [address] Olivia Arreguin M.D. 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 More than 4 times per year [...] and heating? Not hard at all 11/22/2021 [facility] [place] of Occupat ional Health - Occupational Stress [...] your living situation today? I have a [place] place to live 03/30/2023 Education Answer Date Recorded What is the highest level of school you have completed or the highest degree you have received? Master's degree (e.g., MA, MS, Arti, MEd, METAL TREATER, GALA) 11/22/2021 Sex and Gender Information Value [...] 06/12/2023 1:34 PM CDT Sarcoidosis Corticosteroid Treatment Cinder Crusher Operator Systemic Immunodeficiency Due To Drugs (HCC) documented in this encounter Results * BMD [...] Bone Mineral Density (BMD) analysis performed on enavu[employer] with serial number [id number]. ? FINDINGS: Left Hip: Femur Neck: BMD [...] including images and graphs, is available in [employer]. In the absence of other causes of [...] Bone Mineral Density (BMD) analysis performed on [employer] with serialnumber [id number]. FINDINGS: Left Hip: Femur Neck: BMD = [...] report, including images and graphs,is available in [employer]. 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
--- OUTSIDE RECORDS SUMMARY | 2023-06-29 19:07 | XMS_ITS | Encounter Summary ---
Author Name Unknown Organization [facility] Address [address] [place] [address] Care Team Providers Care Pharmacists Name Role Phone Unavailable Primary Care Provider Unavailabl e Encounter Details Date Type Department Care Team (Latest Contact Info) Description 03/15/2023 Clinical Communication Department of Cardiovascular Medicine in [place], [place] [address] [place] [address] Neisha Nolan, JESSIKA, C.N.P., M.S.N. [address] [place] [address] Social History Tobacco Use Types Packs/Day Years Used Date Smoking Tobacco: Former Cigarettes 2004 Smokeless Tobacco: Never [facility] Nauboities Answer Date Recorded In the past 12 months has [facility] electric, gas, oil, or water [employer] threatened to shut off services in your [...] often do you attend chur ch or sikh services? More than 4 times per year 11/22/2021 Do you belong to any clubs o r organizations such as lutheran groups, unions, fraternal or athletic groups, or [...] heating? Not hard at all 11/22/2021 [facility] Occup[facility] ional [facility] - Occupational [...] your living situation today? I have a [facility] place to live 03/30/2023 Education Answer Date Recorded What is the highest level of school you have completed or the highest degree you have received? Master's degree (e.g., MA, MS, Arti, MEd, INTERNETWORKING TECHNICIAN, GAL[employer]) 11/22/2021 Sex and Gender Information Value Date Recorded Sex Assigned at Female 11/22/2021 11:24 PM CDT Gender Identity Female 11/22/2021 11:24 PM CDT Sexual Orientation Lesbian or Alonso 11/22/2021 11 :24 PM CDT documented as of this encounter Miscellaneous Notes * Telephone Encounter - Dorcas Stein - 03/29/2023 4:03 PM CST Laureen Nolan, Pt had echo on 03/05. Does she need to repeat on 04/04? Thank you Dorcas.S [facility] [employer]TERS DISPATCHER * Telephone Encounter - Dorcas Stein - 03/15/2023 8:26 AM CST Laureen Nolan, Scheduled to see you on 04/04 .Pt had a PET scan at [facility] on 03/05 . Please let us know what other testing is needed. Pt wants to transfer her care to [place]. Thank you Dorcas.Girish [employer]TERS DISPATCHER documented in this encounter Plan of Treatment Not on file documented as of this encounter Visit Diagnoses Not on filedocumented in this encounter
--- OUTSIDE RECORDS SUMMARY | 2023-06-29 19:07 | XMS_ITS | Encounter Summary ---
Author Name Unknown Organization [facility] Address [address] [place] [address] Care Team Providers Care Wood Heel Flap Inserter Name Role Phone Unavailable Primary Care Provider Unavailabl e Reason for Referral * Outpatient (Routine) - Closed Specialty Diagnoses / Procedures Referred By Contac t Referred To Contact Diagnoses Failure Heart (HCC) Procedures ECG 12 Lead Neisha Nolan APRN, C.NCher, M.S.N. [address] [place] [phone] [facility] Referral ID Status Reason Start Date Expiration Date Visits Re quested Visits Authorized [id number] Closed 03/22/2023 03/21/2024 1 1 T TURNER * Outpatient (Routine) - Closed Specialty Diagnoses / Procedures Referred By Contac t Referred To Contact Diagnoses Failure Heart (HCC) Procedures DX Chest AP or PA and Lateral 2 Views Neisha Nolan APRN, C.N.Rachana, M.S.N. [address] [place] [phone] [facility] Referral ID Status Reason Start Date Expiration Date Visits Re quested Visits Authorized [id number] Closed 03/22/2023 03/21/2024 1 1 T TURNER Encounter Details Date Type Department Care Team (Latest Contact Info) Description 03/20/2023 Clinical Communication Department of Cardiovascular Medicine in [place], [place] [address] [place] [address] Neisha Nolan APRN, C.N.P., M.S.N. [address] [place] [address] Social History Tobacco Use Types Packs/Day Years Used Date Smoking Tobacco: Former Cigarettes 2004 Smokeless Tobacco: Never [facility] Utilities Answer Date Recorded In [...] often do you attend chur ch or yarsani services? More than 4 times per year 11/22/2021 Do you belong to any clubs o r organizations such as scientology groups, unions, fraternal or athletic groups, or [...] and heating? Not hard at all 11/22/2021 [facility] [place] of Occupat ional Health - Occupational Stress [...] living situation today? I have a [facility] place to live 03/30/2023 Education Answer Date Recorded What is the highest level of school you have completed or the highest degree you have received? 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, GALA) 11/22/2021 Sex and Gender Information Value Date Recorded Sex Assigned at Female 11/22/2021 11:24 PM CDT Gender Identity Female 11/22/2021 11:24 PM CDT Sexual Orientation Lesbian or Alonos 11/22/2021 11 :24 PM CDT documented as of this encounter Plan of Treatment Not on file documented as of this encounter Results * DX Chest AP or PA and Lateral 2 Views (04/04/2023 8:46 AM SHIRT TURNER) Anatomical Region Laterality Modality Chest, Thoracic RST LOS, Tho racic ARZ LOS, Thoracic FLA LOS N/A Digital Radiography Impressions 04/04/2023 9:32 AM SHIRT TURNER Patchy perihilar nodularity with mild hilar adenopathy. Findings are unchanged since 08/15/2021 and would be consistent with sarcoidosis. Heart size at upper limits of normal. Calcified and tortuous aorta. Abdominal surgical clips. Narrative 04/04/2023 9:32 AM SHIRT TURNER EXAM: ??DX CHEST AP OR PA AND [...] * ECG 12 Lead (04/04/2023 8:26 AM SHIRT TURNER) Ventricular Rate ECG/Min 77 BPM MUSE WY Interval 166 ms MUSE QRSD Interval 136 ms MUSE QT Interval 424 ms MUSE QTC Interval 479 ms MUSE P [place] 45 degrees MUSE R [place] -12 degrees MUSE T Wave [place] 126 degrees MUSE 04/04/2023 8:26 AM SHIRT TURNER 04/04/2023 8:35 AM SHIRT TURNER Impressions MUSE - 04/04/2023 8:35 AM SHIRT TURNER Normal sinus rhythm Left bundle branch block [...] NA * Glucose, Fasting (04/04/2023 8:01 AM SHIRT TURNER) Glucose, P 85 70 - 100 mg/dL 04/04/2023 8:59 AM SHIRT TURNER DTL Last Intake 1 hr 04/04/2023 8:41 AM SHIRT TURNER DTL Blood (Blood, Venous) 04/04/2023 8:01 AM SHIRT TURNER 04/04/2023 8:41 AM SHIRT TURNER Neisha Nolan APRN, C.N.P., M.S.N. LAB B LOOD NON ADD-ON [facility] [address] [place] [address], [facility] DTL [facility] [address] [place] [address] * NT-Pro B-Type Natriuretic Peptide (BNP) (04/04/2023 8:00 AM SHIRT TURNER) NT-Pro BNP 151 <=226 pg/mL 04/04/2023 9:16 AM SHIRT TURNER DT Comment: NT-proBNP values less than 300 pg/mL [...] failure. Blood (Blood, Venous) 04/04/2023 8:00 AM SHIRT TURNER 04/04/2023 8:41 AM SHIRT TURNER Neisha Nolan APRN, C.N.P., M.S.N. LAB B LOOD ADD-ON [facility] [address] [place] [address] * (ABNORMAL) Potassium (04/04/2023 8:00 AM SHIRT TURNER) Pathologist [facility] Potassium, S 3.4(L) 3.6 - 5.2 mmol/L 04/04/2023 9:16 AM SHIRT TURNER DT Blood (Blood, Venous) 04/04/2023 8:00 AM SHIRT TURNER 04/04/2023 8:41 AM SHIRT TURNER Yas Schultz APRNNJae., M.S.N. LAB B LOOD ADD-ON [facility] [address] 200 [place] [address] * Bicarbonate (04/04/2023 8:00 AM SHIRT TURNER) Pathologist [facility] Bicarbonate, S 29 22 - 29 mmol/L 04/04/2023 9:16 AM SHIRT TURNER DT Blood (Blood, Venous) 04/04/2023 8:00 AM SHIRT TURNER 04/04/2023 8:41 AM SHIRT TURNER Neisha Nolan APRN, C.N.P., M.S.N. LAB B LOOD ADD-ON [facility] [address] [place] [address] * S-TSH (Thyroid-Stimulating Hormone - Sensitive) (04/04/2023 8:00 AM SHIRT TURNER) Pathologist [facility] TSH, Sensitive 3.2 0.3 - 4.2 mIU/L 04/04/2023 9:16 AM SHIRT TURNER DTL Blood (Blood, Venous) 04/04/2023 8:00 AM SHIRT TURNER 04/04/2023 8:41 AM SHIRT TURNER Neisha Nolan APRN, C.N.P., M.S.N. LAB B LOOD ADD-ON Performing Organization Address City/[facility]/ZIP Co de Phone Number [facility] [address] [place] [address] * (ABNORMAL) CBC with Differential, Blood (04/04/2023 8:00 AM SHIRT TURNER) Pathologist [facility] Hemoglobin 12.3 11.6 - 15.0 g/dL 04/04/2023 8:36 AM SHIRT TURNER DTL Hematocrit 38.3 35.5 - 44.9 % 04/04/2023 8:36 AM SHIRT TURNER DTL Erythrocytes 4.58 3.92 - 5.13 x10(12)/L 04/04/2023 8:36 AM SHIRT TURNER DTL MCV 83.6 78.2 - 97.9 fL 04/04/2023 8:36 AM SHIRT TURNER DTL RBC Distrib Width 15.0 12.2 - 16.1 % 04/04/2023 8:36 AM SHIRT TURNER DTL Platelet Count 240 157 - 371 x10(9)/L 04/04/2023 8:36 AM SHIRT TURNER DTL Leukocytes 6.2 3.4 - 9.6 x10(9)/L 04/04/2023 8:36 AM SHIRT TURNER DTL Neutrophils 4.79 1.56 - 6.45 x10(9)/L 04/04/2023 8:36 AM SHIRT TURNER DHPM Lymphocytes 0.35(L) 0.95 - 3.07 x10(9)/L 04/04/2023 8:36 AM SHIRT TURNER DTL Monocytes 0.77 0.26 - 0.81 x10(9)/L 04/04/2023 8:36 AM SHIRT TURNER DTL Eosinophils 0.18 0.03 - 0.48 x10(9)/L 04/04/2023 8:36 AM SHIRT TURNER DTL Basophils 0.06 0.01 - 0.08 x10(9)/L 04/04/2023 8:36 AM SHIRT TURNER DTL Blood (Blood, Venous) 04/04/2023 8:00 AM SHIRT TURNER 04/04/2023 8:27 AM SHIRT TURNER Neisha Nolan APRN, C.N.P., M.S.N. LAB B LOOD ADD-ON [facility] [address] [place] [address], [facility] DTL [facility] [address] [place], [place] [id number] [place] [address] * (ABNORMAL) Lipid Panel (04/04/2023 8:00 AM SHIRT TURNER) [facility] Triglycerides 144 mg/dL 04/04/2023 9:16 AM SHIRT TURNER DTL Comment: ----REFERENCE VALUE---- Normal: <150 mg/dL Borderline High: 150-199 mg/dL High: 200-499 mg/dL Very High: > or =500 mg/dL Cholesterol, Total 180 mg/dL 2023 9:16 AM SHIRT TURNER DTL Comment: ----REFERENCE VALUE---- Desirable: < 200 mg/dL Borderline High: 200 - 239 mg/dL High: > or = 240 mg/dL Cholesterol, LDL, Calculated 107 mg/dL 04/04/2023 9:16 AM SHIRT TURNER DTL Comment: ----REFERENCE VALUE---- Desirable: <100 mg/dL Above Desirable: 100-129 mg/dL Borderline High: 130-159 mg/dL High: 160-189 mg/dL Very High: >=190 mg/dL ----ADDITIONAL INFORMATION---- LDL cholesterol calculated using the Gardner/NIH equation. Cholesterol, HDL, S 48(L) >=50 mg/dL 04/04/2023 9:16 AM SHIRT TURNER DTL Cholesterol, Non-HDL, Calculated 132 mg/dL 04/04/2023 9:16 AM SHIRT TURNER DTL Comment: ----REFERENCE VALUE---- Desirable: <130 mg/dL Above Desirable: 130-159 mg/dL Borderline High: 160-189 mg/dL High: 190-219 mg/dL Very High: > or =220 mg/dL Fasting (8 HR or more) No 04/04/2023 8:41 AM SHIRT TURNER DTL Blood (Blood, Venous) 04/04/2023 8:00 AM SHIRT TURNER 04/04/2023 8:41 AM SHIRT TURNER Neisha Nolan APRN, C.N.P., M.S.N. [place] [address], [place] [address] * BUN (Blood Urea Nitrogen) (04/04/2023 8:00 AM SHIRT TURNER) BUN (Blood Urea Nitrogen), S 12 6 - 21 mg/dL 04/04/2023 9:16 AM SHIRT TURNER DTL Blood (Blood, Venous) 04/04/2023 8:00 AM SHIRT TURNER 04/04/2023 8:41 AM SHIRT TURNER Neisha Nolan APRN, C.N.P., M.S.N. LAB B LOOD ADD-ON [facility] [address] [place], [place] [phone] [place] [address] [facility] 200 [place] [address] * AST (Aspartate Aminotransferase) (04/04/2023 8:00 AM SHIRT TURNER) Aspartate Aminotransferase (AST), S 18 8 - 43 U/L 04/04/2023 9:16 AM SHIRT TURNER DTL Blood (Blood, Venous) 04/04/2023 8:00 AM SHIRT TURNER 04/04/2023 8:41 AM SHIRT TURNER Neisha Nolan APRN, C.N.P., M.S.N. LAB B LOOD ADD-ON Performing Organization Address City/[facility] Co de Phone Number [facility] [address] [place], [place] [phone] [place] [address] [facility] [address] [place] [address] * Creatinine with Estimated GFR (04/04/2023 8:00 AM SHIRT TURNER) Creatinine 0.95 0.59 - 1.04 mg/dL 04/04/2023 9:16 AM SHIRT TURNER DTL Estimated GFR (eGFR) 69 >=60 mL/min/BSA 04/04/2023 9:16 AM SHIRT TURNER DTL Comment: Estimated GFR calculated using the 2020 CKD_EPI creatinine equation. Blood (Blood, Venous) 04/04/2023 8:00 AM SHIRT TURNER 04/04/2023 8:41 AM SHIRT TURNER Yas Schultz APRNNJae., M.S.N. LAB B LOOD ADD-ON Performing Organization Address City/[facility]/ZIP Co de Phone Number [facility] [address] [facility] 200 [place] [address] * Sodium (04/04/2023 8:00 AM SHIRT TURNER) Sodium, S 145 135 - 145 mmol/L 04/04/2023 9:16 AM SHIRT TURNER DTL Blood (Blood, Venous) 04/04/2023 8:00 AM SHIRT TURNER 04/04/2023 8:41 AM SHIRT TURNER Neisha Nolan APRN C.NSandieP., M.S.N. LAB B LOOD ADD-ON [facility] [address] [place] [address], [facility] [address] [place] [address] documented in this encounter Visit Diagnoses Diagnosis Failure Heart (HCC)- Primary Failure Heart (HCC) documented in this encounter
--- OUTSIDE RECORDS SUMMARY | 2023-06-29 19:07 | XMS_ITS | Clinical Summary ---
Author Name Unknown Organization [facility] Address [place], [place] [address] Care Team Providers Care Senior Benefits Manager Name Role Phone Lavern Beavers MD Primary Care Provider [phone] Allergies Active Allergy Reactions Criticality Noted Date Comments Sulfa (Sulfonamide Antibiotics) Nausea And Vomiting 01/30/2021 Medications Medication Sig Dispensed Refills Start Date End Date Status ProAir HFA 90 mcg/actuation inhaler 12/13/2020 Active omeprazole 20 mg tabletIndications :Gastric reflux Take 1 Tablet (20 mg) by mouth once daily before a meal. 90 Tablet 3 05/28/2022 Active predniSONE (DELTASONE) 20 mg tablet 02/03/2023 Active mometasone-formot alejandra (Dulera) 200-5 mcg/actuation inhalerIndication s:Sarcoidosis USE 2 INHALATIONS TWICE A DAY 39 g 2 03/11/2023 Active metroNIDAZOLE 0.75 % creamIndications: Rosacea Apply topically to affected area on face once-twice daily. 45 g 2 06/05/2023 Active methotrexate sodium (METHOTREXATE, ANTI-RHEUMATIC, ORAL) Take by mouth. Active nortriptyline (PAMELOR) 10 mg capsuleIndication s:Anxiety Take 2 Capsules (20 mg) by mouth at bedtime. 200 Capsule 3 06/21/2023 Active QUEtiapine (SEROQUEL) 25 mg tabletIndications :Anxiety Take 1 Tablet (25 mg) by mouth at bedtime. 100 Tablet 3 06/21/2023 Active clobetasol 0.05% (TEMOVATE 0.05% OINTMENT) 0.05 % ointment Apply topically to affected area(s) 2 times daily. 0 01/30/2021 4 Discontinue d(*Med complete/Re gimen complete/Le javi of care change) nortriptyline (PAMELOR) 10 mg capsuleIndication s:Anxiety Take 2 Capsules (20 mg) by mouth at bedtime. 180 Capsule 3 05/28/2022 4 Discontinue d(Reorder (E-cancel not sent)) QUEtiapine (Seroquel XR) 50 mg Tb24 Extended-Release tabletIndications :Anxiety Take 1 Tablet (50 mg) by mouth once daily. 90 Tablet 3 05/28/2022 4 Discontinue d(*Med complete/Re gimen complete/Le javi of care change) metroNIDAZOLE 0.75 % creamIndications: Rosacea Apply topically to affected area on face once-twice daily. 45 g 2 06/05/2022 4 Discontinue d(Reorder (E-cancel not sent)) tiZANidine (ZANAFLEX) 4 mg tabletIndications :Back pain with right-sided sciatica Take 1 Tablet (4 mg) by mouth every 6 hours if needed for Muscle Spasm. 10 Tablet 06/07/2022 4 Discontinue d(*Med complete/Re gimen complete/Le javi of care change) cyclobenzaprine (FLEXERIL) 10 mg tabletIndications :Back pain with right-sided sciatica,Low back pain, unspecified back pain laterality, unspecified chronicity, unspecified whether sciatica present Take 1 Tablet (10 mg) by mouth 2 times daily if needed for Muscle Spasm. 30 Tablet 06/15/2022 4 Discontinue d(*Med complete/Re gimen complete/Le javi of care change) celecoxib (CELEBREX) 200 mg capsuleIndication s:Back pain with right-sided sciatica,Low back pain, unspecified back pain laterality, unspecified chronicity, unspecified whether sciatica present Take 1 Capsule (200 mg) by mouth once daily with a meal. 30 Capsule 06/19/2022 4 Discontinue d(*Med complete/Re gimen complete/Le javi of care change) QUEtiapine (SEROQUEL) 25 mg tabletIndications :Anxiety Take 1 Tablet (25 mg) by mouth at bedtime. 90 Tablet 3 08/10/2022 4 Discontinue d(Reorder (E-cancel not sent)) mycophenolate (CellCept) 500 mg tabletIndications :Cardiac sarcoidosis Take 2 Tablets (1,000 mg) by mouth every 12 hours. Take with 500 mg to equal 1500 mg 360 Tablet 3 03/06/2023 4 Discontinue d(*Med complete/Re gimen complete/Le javi of care change) mycophenolate (CellCept) 250 mg capsuleIndication s:Cardiac sarcoidosis Take 2 Capsules (500 mg) by mouth every 12 hours. Take with 1000 mg to equal 1500 mg 360 Capsule 3 03/06/2023 4 Discontinue d(*Med complete/Re gimen complete/Le javi of care change) Active Problems Problem Noted Date Diagnosed Date Paroxysmal SVT (supraventricular tachycardia) Sarcoidosis 11/21/2021 Lung interstitial disease 11/21/2021 Pap smear for cervical cancer screening 04/26/19 Overview: 04/2021 NIL/HPV negative. Plan: Pap/HPV due 04/2026 Ventricular trigeminy Mitral valve regurgitation Depression Anxiety Resolved Problems Problem Noted Date Diagnosed Date Resolved Date Supraventricular tachycardia 05/28/2022 06/17/2023 Encounters Date Type Department Care Team Description 06/17/2023 1:55 PM CDT Office Visit [facility] [address] [place] [address] Lavern Beavers MD Physical (referrals from [facility] discussion); Establish Care (/) 06/17/2023 Orders Only [facility] [address] [place] [address] Lavern Beavers MD Outside Order (Ordered by Rajat Pizarro) 06/17/2023 Travel 06/05/2023 8:30 AM CDT Office Visit [facility] [address] [address] Charisse Cabrera MD Derm Problem (fbse) 06/05/2023 Travel 04/30/2023 7:00 AM IRONWORKER APPRENTICE SHOP - 04/30/2023 11:59 PM IRONWORKER APPRENTICE SHOP Hospital Encounter [facility] [address] [place] [address] Derrick Bower MD Froemming, Gina L, SLP 04/30/2023 Travel 04/16/2023 7:00 AM IRONWORKER APPRENTICE SHOP - 04/16/2023 11:59 PM IRONWORKER APPRENTICE SHOP Hospital Encounter [facility] [address] [place] [address] Derrick Bower MD Froemming, Gina L, NETWORK ENGINEER Supraventricular tachycardia (Primary Dx); Lung interstitial disease (HC); Sarcoidosis; Pap smear for cervical cancer screening; Anxiety; Mitral valve insufficiency, unspecified etiology; Ventricular trigeminy; Dysphonia; Vocal cord dysfunction 04/16/2023 Travel from Last 3 Months Immunizations Name Administration Dates Next Due COVID-19 Vaccine Spikevax (M oderna 50mcg/0.5mL) 12YO+ [id number] Formula PF 06/17/2023,12/25/2022 Influenza, IIV4 12/25/2022,12/31/2021,04/21/2020 Pneumococcal Conj 20-valent (Prevnar 20) 024 Tdap 08/15/2022,09/02/2013 Zoster (Shingrix-RZV, recombinant) 06/17/2023 Family History Medical History Relation Name Comments [...] pur e alcohol) 1-2 drinks a week PHQ-2 Answer Date Recorded PHQ-2 TOTAL SCORE 0 06/17/2023 Social Connections Answer Date Recorded Frequency of Communication with Friends and Fami ly 0 06/17/2023 Financial Resource Strain Answer Date R ecorded Difficulty of Paying Living Expenses 3 06/17/2023 Difficulty of Paying Living Expenses Not on file 06/17/2023 Food Insecurity Answer Date Recorded Worried About Running Out of Food in the Last Ye ar 1 06/17/2023 Transportation Needs Answer Date Record ed Lack of Transportation (Medical) 1 06/17/2023 Housing Stability Answer Date Recorded Unable to Pay for Housing in the Last Year 1 06/17/2023 Sex and Gender Information Value Date Recorded Sex Assigned at Not on file Gender Identity Not on file Sexual Orientation Not on file Travel History Travel Start Travel End [place] 05/17/2023 06/17/2023 Obstetrics History Last Filed Vital Signs Vital Sign Reading Time Taken Comments Blood Pressure 138/77 06/17/2023 1:52 PM CDT Pulse 67 06/17/2023 1:52 PM CDT Temperature 36.7 ??C (98 ??F) 02/22/2022 5:58 AM IRONWORKER APPRENTICE SHOP Respiratory Rate 16 09/21/2022 10:5 7 AM CDT Oxygen Saturation 99% 06/17/2023 1:52 PM CDT Inhaled Oxygen Concentration - - Weight 102.2 kg (225 lb 6.4 oz) 06/17/2023 1:52 PM CDT Height 172.2 cm (5' 7.8) 06/17/2023 1:52 PM CDT Body Mass Index 34.48 06/17/2023 1:52 PM CDT Plan of Treatment Upcoming Encounters Date Type Department Care Team (Late st Contact Info) Description 07/01/2023 11:40 AM CDT Ancillary Procedure [facility] [address] [place] [address] 06/16/2024 8:30 AM CDT Office Visit [facility] [address] [id number] Charisse Cabrera MD [address] [id number] Health Maintenance Due Date Last Done Comments HIV for age 15-65 1978 Mammogram for age 45-75 06/19/2023 06/19/19 23, 08/10/2020 (Completed outside of [facility]) COVID-19 vaccine series (8 - 2022-24 season) 2023 06/17/2023, 12/25/2022, 12/31/2021, Additional history exists Zoster (shingles) series for age 50+ (2 of 2) 08/12/2023 06/17/2023 Influenza for age 50-64 10/27/2023 12/26/19 23, 12/31/2021, 04/21/2020 BMI (ht and wt on same day) for age 18+ 06/16/2024 06/17/2023, 12/10/2022, 09/21/2022, Additional history exists Depression screening for age 12+ 06/16/2024 06/17/19 24, 06/17/2023 Colonoscopy through age 75 10/26/202410/26 (Completed outside of [facility]) Pap test for age 21-65 05/22/2026 05/22/2021, 2021 Lipids for age 45-75 05/29/2027 05/28/2022, 05/23/19 Tetanus booster 08/15/2032 08/15/2022, 09/02/2013 Hepatitis C screening for ag e 18-79 Completed 05/22/2021 Tdap Completed 08/15/2022, 09/02/2013 Pneumococcal series for age 6-64 Completed 02/28/19 24 Procedures Procedure Name Priority Date/Time Associated Diagnosis Comments XR MAMMO GHAZALA BILAT SCREEN Routine 06/18/2022 9:49 AM CDT Visit for screening mammogram LC LIPID PANEL AND CHOL/HDL RATIO Routine 05/28/2022 10:50 AM CDT Screening cholesterol level ANTI HCV Routine 05/22/2021 2:25 PM CDT Need for hepatitis C screening test HPV THIN PREP Routine 05/22/2021 2:02 PM CDT Screening for cervical cancer from Last 3 Months or Most Recently Relevant to Health Maintenance Results * XR MAMMO GHAZALA BILAT SCREEN (06/18/2022 9:49 AM CDT) Anatomical Region Laterality Modality BREASTS, Breast Left, Breast Right Bilateral Mammography Impressions 06/26/2022 3:18 PM CDT ??There is no radiographic evidence for malignancy. ??Recommend annual mammograms. MAMMOGRAM ASSESSMENT: ??ACR 1 Negative PATIENTS: You will also receive a letter with your examination results in an easy to read format. ??If you have questions about your results, please contact your referring provider. Narrative 06/26/2022 3:18 PM CDT For Patients: As a result of the Century Cures Act, medical imaging exams and procedure reports are released immediately into your electronic medical record. You may view this report before your referring provider. If you have questions, please contact your health care provider. XR MAMMO GHAZALA BILAT SCREEN [[id number]] CLINICAL HISTORY: ??This is an asymptomatic 57 y.o. patient. INDICATION FOR EXAM: Mammogram Screening. TECHNIQUE: CC & MLO views were obtained. ??This study was evaluated with the assistance of Computer-Aided Detection. Breast Tomosynthesis was used in interpretation. COMPARISON FILM: Yes 08/10/20 Outside Facility 08/03/19 Outside Facility FINDINGS: ??The breasts are heterogeneously dense, which may obscure small masses. There are no dominant masses, suspicious micro calcifications or areas of architectural distortion. Gayathri GREENE MAMMO * (ABNORMAL) LC LIPID PANEL AND CHOL/HDL RATIO (05/28/2022 10:50 AM CDT) Cholesterol, Total 194 100 - 199 mg/dL 05/30/2022 9:10 AM [facility] Triglycerides 120 0 - 149 mg/dL 05/30/2022 9:10 AM T [facility] ([facility]) HDL Cholesterol 52 >39 mg/dL 9:10 AM T [facility] ([facility]) VLDL Cholesterol Chase 21 5 - 40 mg/dL 05/30/2022 9:10 AM T [facility] ([facility]) LDL Chol Calc ([facility]) 121(H) 0 - 99 mg/dL 05/30/2022 9:10 AM CDT [facility] ([facility]) T. Chol/HDL Ratio 3.7 0.0 - 4.4 ratio 05/30/2022 9:10 AM CDT [facility] ([facility]) Comment: ?T. Chol/HDL Ratio ?Men ??Women ?1/2 Avg.Risk ??3.4 ?3.3 ?Avg.Risk ??5.0 ?4.4 ? 2X Avg.Risk ??9.6 ?7.1 ? 3X Avg.Risk 23.4 ?? 11.0 Blood BLOOD SPECIMEN / Unknown Venipuncture / Unknown 05/28/2022 10:50 AM CDT 05/28/2022 10:51 AM CDT Narrative [facility] - 05/30/2022 9:10 AM CDT Performed at: ??01 - [facility] [address] [facility], [place], [place] ??[id number] Rn Post Partum: Trell Calderon MD, Phone: ??[phone] Gayathri GREENE SEND OUTS [facility] ([facility]) [address] [place] [id number], * ANTI HCV (05/22/2021 2:25 PM CDT) HEPATITIS C ANTIBODY Non-React milton Non-React milton 05/22/2021 11:58 PM CDT [facility] Comment:Antibodies to HCV no t detected; does not exclude the possibility of exposure to HCV. Blood BLOOD SPECIMEN / Unknown Venipuncture / Unknown 05/22/2021 2:25 PM CDT 05/22/2021 2:28 PM CDT Gayathri GREENE [facility] [address] [place] [address], * HPV HIGH RISK (05/22/2021 2:02 PM CDT) TYPE 16 Negative Negative 05/24/2021 5:38 PM CDT [facility] TYPE 18 Negative Negative 05/24/2021 5:38 PM CDT [facility] OTHER HIGH RISK TYPES Negative Negative 05/24/2021 5:38 PM CDT [facility] Other (Cervical) Non-Blood / Unknown 05/22/2021 2:02 PM CDT 05/23/2021 8:32 AM CDT Narrative [facility] - 05/24/2021 5:38 PM CDT HPV types 16, 18, 31, 33, 35, 39, 45, 51, 52, 56, 58, 59, 66 and 68 DNA were undetectable or below the pre-set threshold. Methodology: [facility] 4800 HPV Test Gayathri GREENE [facility] [address] [place] [address], from Last 3 Months or Most Recently Relevant to Health Maintenance Advance Directives Documents on File Type Date Recorded Patient Supplier Quality Engineer Expl anation Healthcare Directive 02/20/2022 022 * Full Code (Latest Code Status on File) Date Activated Date Inactivated Comments 02/21/2022 11:30 AM 02/22/2022 12:12 PM Question Answer Comments Code Status Discussion: Reviewed Preferences Care Teams Senior Benefits Manager Relationship Specialty Start Date End Date Lavern Beavers MD [address] [place] [address] PCP - General Family Practice 06/17/23
--- OUTSIDE RECORDS SUMMARY | 2023-06-29 19:07 | XMS_ITS | Encounter Summary ---
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 Social History Tobacco Use Types Packs/Day Years Used Date Smoking Tobacco: Former Cigarettes 2004 Smokeless Tobacco: Never [facility] [employer] Answer Date Recorded In the past 12 months has [employer] electric, gas, oil, or water company threatened [...] often do you attend chur ch or mosque services? More than 4 times per year 11/22/2021 Do you belong to any clubs o r organizations such as congregation groups, unions, fraternal or athletic groups, or [...] and heating? Not hard at all 11/22/2021 [facility] - Occupational Stress [...] your living situation today? I have a [facility] place to live 03/30/2023 Education Answer Date Recorded What is the highest level of school you have completed or the highest degree you have received? Master's degree (e.g., MA, MS, Arti, MEd, [employer], [employer]) 11/22/2021 Sex and Gender Information Value Date Recorded Sex Assigned at Female 11/22/2021 11:24 PM CDT Gender Identity Female 11/22/2021 11:24 PM CDT Sexual Orientation Lesbian or Alonso 11/22/2021 11 :24 PM CDT documented as of this encounter Miscellaneous Notes * Telephone Encounter - Dorcas Stein - 03/22/2023 1:56 PM CST ECHO MOVE UP REQUEST If there is any additional information please add it to the bottom. (I.E. provider request, nursingrequest, etc.) Appt Type: EST Requested Date: 04/04 , Time(s): Before 1pm , Evening? 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
--- OUTSIDE RECORDS SUMMARY | 2023-06-29 19:07 | XMS_ITS | Encounter Summary ---
Author Name Unknown Organization [facility] Address [address] [place] [id number] Care Team Providers Care Clinical Research Monitor Name Role Phone Unavailable Primary Care Provider Unavailabl e Reason for Referral * Outpatient (Routine) - Authorized Specialty Diagnoses / Procedures Referred By Contac t Referred To Contact Cardiovascular Disease Neisha Nolan APRN, C.N.P., M.S.N. [address] [place] [phone] [facility] Referral ID Status Reason Start Date Expiration Date V isits Requested Visits Authorized [id number] Authorized 04/08/2023 10/07/2024 1 1 AL STUNNER * Outpatient (Routine) - Pending Review Specialty Diagnoses / Procedures Referred By Contac t Referred To Contact Diagnoses Sarcoid Myocarditis (HCC) Procedures PET CT Cardiac Sarcoid Neisha Nolan APRN, C.N.P., M.S.N. [address] [place] [phone] [facility] Referral ID Status Reason Start Date Expiration Date V isits Requested Visits Authorized [id number] Pending Review 04/08/2023 2024 1 1 AL STUNNER * Outpatient (Routine) - Authorized Specialty Diagnoses / Procedures Referred By Contac t Referred To Contact Diagnoses Sarcoid Myocarditis (HCC) Procedures ECG Heart rhythm monitor (Holter) Neisha Nolan APRN, C.N.P., M.S.N. [address] [place] [phone] [facility] Referral ID Status Reason Start Date Expiration Date V isits Requested Visits Authorized [id number] Authorized 04/08/2023 2024 1 1 AL STUNNER * Outpatient (Routine) - Authorized Specialty Diagnoses / Procedures Referred By Contac t Referred To Contact Diagnoses Sarcoid Myocarditis (HCC) Procedures Echo Transthoracic (TTE) Neisha Nolan APRN, C.N.P., M.S.N. [address] [place] [phone] [facility] Referral ID Status Reason Start Date Expiration Date V isits Requested Visits Authorized [id number] Authorized 04/08/2023 2024 1 1 AL STUNNER * Outpatient (Routine) - Closed Specialty Diagnoses / Procedures Referred By Contac t Referred To Contact Rheumatology Diagnoses Sarcoidosis Neisha Nolan APRN, C.N.P., M.S.N. 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 [address] [place] [phone] Sarcoid Myocarditis (HCC) (Primary Dx); Sarcoidosis Social History Tobacco Use Types Packs/Day Years Used Date Smoking Tobacco: Former Cigarettes 0.5 10 0 02/25/1994 - 02/26/2004 Smokeless Tobacco: Never Tobacco Cessation:Counseling Given: Not Answered Alcohol Use Standard Drinks/Week Comments Yes 2 (1 standard drink = 0.6 oz pur e alcohol) [facility] [employer] Answer Date Recorded In the past 12 months has e [employer], gas, oil, or water [employer] threatened to shut off services in your [...] week 11/22/2021 How often do you attend [facility] or nondenominational services? More than 4 times per year [...] and heating? Not hard at all 11/22/2021 [facility] - Occupational [...] your living situation today? I have a [facility] place to live 03/30/2023 Education Answer Date Recorded What is the highest level of school you have completed or the highest degree you have received? 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32) 04/04/2023 1:46 PM ANIMAL STUNNER Body Mass Index 36.13 04/04/2023 1:46 PM ANIMAL STUNNER documented in this encounter Progress Notes * Neisha Nolan, JESSIKA, C.N.P., M.S.N. - 04/04/2023 2:00 PM CST PRIMARY CARE PROVIDER No primary care provider on file. LOCAL TUTOR Transferring Care to [facility] CHIEF COMPLAINT / REASON FOR VISIT Cardiac Sarcoid HISTORY OF PRESENT ILLNESS Ms. Rice is a 58 y.o. 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 I first met Ms. Rice via video visit back in April of 2022 for a second opinion. At that time shewas doing well. 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 Cell Cept was increased to 1250 BID. Follow up PET CT in February locally demonstrated no improvement in active inflammation. She was advised to increase Cellcept to 1500 BID but has not increased that medication and asked for visit with [facility] Sarcoid for transfer of care. Initial presentation consisted of progressive exertional shortness of breath that dates back about 5 years. 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 She subsequently underwent bronchoscopy with EBUS-guided transbronchial needle aspiration of intrathoracic lymph nodes that yielded granulomatous inflammation. Endobronchial biopsies also demonstrated non- necrotizing granulomas. Special stains were negative for microorganisms. Ms. Rice also underwent a cardiac evaluation that included cardiac MR study and cardiac PET. MRI revealed focal mid-myocardial delayed enhancement in basal anterior septum. Cardiac PET: 1. Resting myocardial perfusion with rubidium was normal. 2. With 18 FDG imaging no focal myocardial uptake was observed. SUV max: 2.6. Cardiac MR was obtained prior to initiation of steroids. Cardiac PET was after initiation of steroids and Cellcept. EF on MRI and echo were noted [...] and initiated on Cellcept in December 2021. She was maintained on this regimen until November 2022 when active inflammation was again noted. There is no PET/CT that suggest inflammation was resolved between Nov 2021 to Nov 2022. Cellcept was increased in November 2022 without evidence of resolution of inflammation when repeated in February 2023. Ms. Rice has had significant issues with palpitations and arrhythmias. She underwent PVC ablationin February 2022 locally. She feels improved since PVC ablation. REVIEW OF SYSTEMS A comprehensive review of systems was completed; pertinent abnormalities are included in the History of Present Illness. MEDICATIONS Current Medications: albuterol 90 mcg/actuation inhaler, Inhale 2 puffs every 6 (six) hours as needed. clobetasoL (TEMOVATE) 0.05 % ointment, Apply 1 Application topically as needed. metroNIDAZOLE (METROCREAM) 0.75 % cream, Apply 1 Application topically daily. mometasone-formoterol (Dulera) 200-5 mcg/actuation inhaler, Inhale 2 puffs 2 (two) times a day. mycophenolate (CELLCEPT) 250 mg capsule, Take 1 capsule (250 mg total) by mouth every 12 (twelve) hours. mycophenolate (CELLCEPT) 500 mg tablet, Take 2 tablets (1,000 mg total) by mouth every 12 (twelve) hours. nortriptyline (PAMELOR) 10 mg capsule, Take 20 mg by mouth at bedtime. QUEtiapine (SEROquel) 25 mg tablet, Take 25 mg by mouth at bedtime. IMMUNIZATIONS Immunization History Administered Date(s) Administered SARS-COV-2 (COVID-19) - MODERNA (12 YEARS AND OLDER) [id number] 12/25/2022 SARS-COV-2 (COVID-19) - MODERNA(Discontinued) 12/29/2020, 09/28/2021 SARS-COV-2 (COVID-19) - PFIZER (Discontinued)(12 years or older) 05/20/2020, 06/13/2020 SARS-COV-2 (COVID-19) - PFIZER BIVALENT TS(Discontinued)(12 YEARS OR OLDER) 12/31/2021 PHYSICAL EXAMINATION General: Very pleasant who appears well. Skin: No rashes or lesions. Vessels: Carotid upstroke normal bilaterally. Radial and pedal pulses full and symmetrical. No carotid, subclavian, or abdominal bruits. Heart: Regular rate and rhythm. Normal S1 and S2. No S3 or S4. No murmurs. JVP flat. Lung: Good respiratory effort. Clear to auscultation bilaterally. Extremities: No peripheral edema. Gait: Normal. Psychiatric: Appropriate affect. Alert and oriented to person, place, and time. DIAGNOSTIC REVIEW Pertinent laboratory studies have been reviewed and are notable for: Lab Results Component Value Date/Time HGB 12.3 04/04/2023 08:00 AM HGB 11.9 (L) 06/05/2022 02:55 PM HGB 14.6 10/12/2021 07:46 AM HCT 38.3 04/04/2023 08:00 AM HCT 37.8 06/05/2022 02:55 PM MCV 83.6 04/04/2023 08:00 AM MCV 82 06/05/2022 02:55 PM WBC 6.2 04/04/2023 08:00 AM WBC 6.4 06/05/2022 02:55 PM PLT 240 04/04/2023 08:00 AM PLT 237 06/05/2022 02:55 PM Lab Results Component Value Date/Time CREATININE 0.95 04/04/2023 08:00 AM CREATININE 0.85 06/05/2022 02:55 PM EGFR 69 04/04/2023 08:00 AM BUN 12 04/04/2023 08:00 AM BUN 14 06/05/2022 02:55 PM NA 145 04/04/2023 08:00 AM NA 145 06/05/2022 02:55 PM BICARB 29 04/04/2023 08:00 AM CL 108 (H) 06/05/2022 02:55 PM MG 2.0 06/05/2022 02:55 PM Lab Results Component Value Date/Time AST 18 04/04/2023 08:00 AM AST 17 12/28/2021 04:11 PM ALT 26 12/28/2021 04:11 PM ALT 20 11/21/2021 10:02 AM ALKPHOS 95 12/28/2021 04:11 PM Lab Results Component Value Date/Time CALCIUM 9.4 06/05/2022 02:55 PM Lab Results Component Value Date/Time STEFANIA 18 11/21/2021 10:02 AM No results found for: [id number], 25OHVITDTTL, QJXX05PHC No results found for: GLUF, HGBA1C Lab Results Component Value Date/Time NTPROBNP 151 04/04/2023 08:00 AM No results found for: INR Lab Results Component Value Date/Time CHOL 180 04/04/2023 08:00 AM CHOL 194 05/28/2022 10:50 AM TRIG 144 04/04/2023 08:00 AM TRIG 120 05/28/2022 10:50 AM HDL 48 (L) 04/04/2023 08:00 AM HDL 52 05/28/2022 10:50 AM LDLCALC 107 04/04/2023 08:00 AM Holter Monitor: EnriqueoPatch November 2022 (see Care Everywhere) Bundle branch block, 1 run VT lasting 5 beats, 16 SVT runs with longest run of 14 beats, Isolated SVE of less than 1% Echocardiogram: Outside study Feb 2023 Final Impressions: 1. Technically limited exam. 2. [...] with a maximal diameter of 4.1 cm. PET/CT: Outside study Feb 2023 (see Care Everywhere) The overall quality of the study was [...] active cardiac sarcoidosis or other inflammatory process. Computer processed gated imaging revealed a normal left ventricular size with an EDV of 137 ml, ESV of 50 ml and calculated LVEF of 64%. (Lab normals: LVEF >50%, LV size <150 ml) There was normal myocardial thickening and wall motion. CT Chest without IV Contrast Impression 1. [...] status post ablation done elsewhere #4 Immunosuppression Due to incomplete supression of cardiac sarcoidosis and evidence of continued inflammation, I recommend that we have rheumatology see Ms. Rice for consideration of subcutaneous methotrexate or DMARD. I have discussed with Dr. Freire who also recommends we re start prednisone when escalating the steroid sparing agent. Will defer to rheumatology to decide on subq MTX vs DMARD. Recommended prednisone taper as follows (to be initiated at same time that rheumatology escalates non steroid agent) Prednisone Weeks 1 -4: 30 mg per day Weeks 5-8: 25 mg per day Weeks 9-12: 20 mg per day Weeks 13-16: 15 mg per day Weeks 17 & 18: 10 mg per day; discontinue Atovaquone Weeks 19 & 20: 7.5 mg per day Weeks 21 & 22: 5 mg per day Weeks 23 & 24: 2.5 mg per day Week 25: Discontinue prednisone Additional Medications Atovaquone (to prevent lung infection while taking prednisone): 750 mg/5ml suspension; 5 ml twice daily as long as you are taking ?15 mg prednisone daily Folic Acid (to preserve blood cell counts while taking Methotrexate): 1 mg by mouth every day Calcium (to protect bone strength while taking prednisone): 3579-0564 mg total daily, calcium citrate preferred; buy over the counter Vitamin D (to protect bone strength while taking prednisone): 800-1000 IU total daily; buy over thecounter Omeprazole [(Prilosec) to protect stomach while taking prednisone]: 20 mg every day while taking any dose of prednisone; may buy over the counter if less expensive than prescription Blood tests: CBC (complete blood count with differential), AST and ALT (liver function tests), creatinine (kidney function test), fasting blood glucose At the end of month 1 At the end of month 2 At the end of month 3 Every three months thereafter Neisha Nolan APRN, C.N.P., M.S.N. [place] STUNNER documented in this encounter Plan of Treatment Scheduled Orders Name Type Priority Associated Diagnoses Order Schedule Echo Transthoracic (TTE) Echocardiography Routine Sarcoid Myocarditis (HCC) Expected: 12/09/2023 (Approximate), Expires: 07/06/2024 Bilirubin, Direct Lab Routine Sarcoid Myocarditis (HCC) Expected: 12/09/2023 (Approximate), Expires: 04/08/2024 CBC with Differential, Blood Lab Routine Sarcoid Myocarditis (HCC) Expected: 12/09/2023 (Approximate), Expires: 04/08/2024 Comprehensive Metabolic Panel Lab Routine Sarcoid Myocarditis (HCC) Expected: 12/09/2023 (Approximate), Expires: 07/06/2024 C-Reactive Protein, High Sensitivity Lab Routine Sarcoid Myocarditis (HCC) Expected: 12/09/2023 (Approximate), Expires: 04/08/2024 Troponin T, 5th Generation Lab Routine Sarcoid Myocarditis (HCC) Expected: 12/09/2023 (Approximate), Expires: 04/08/2024 NT-Pro B-Type Natriuretic Peptide (BNP) Lab Routine Sarcoid Myocarditis (HCC) Expected: 12/09/2023 (Approximate), Expires: 04/08/2024 ECG Heart rhythm monitor (Holter) Cardiac Services Routine Sarcoid Myocarditis (HCC) Expected: 12/09/2023 (Approximate), Expires: 07/06/[address] Cardiac Sarcoid Cardiac Services RAD - Routine (most inpatients and all outpatients) Sarcoid Myocarditis (HCC) Expected: 12/09/2023 (Approximate), Expires: 07/06/2024 Scheduled Referrals Name Type Priority Associated Diagnoses Order Schedule Rheumatology ? Sarcoidosis consult (clinic) Outpatient Referral Routine Sarcoidosis Expected: 04/05/2023 (Approximate), Expires: 07/03/2024 Cardiovascular Disease office visit (clinic) Outpatient Referral Routine Expect ed: 12/09/2023 (Approximate), Expires: 07/06/2024 documented as of this encounter Visit Diagnoses Diagnosis Sarcoid Myocarditis (HCC)- Primary Sarcoidosis documented in this encounter
[2023-06-29 19:27] LABS: HCO3 VBG 20 mmol/L (21-28); PCO2 VBG 39 mmHG (40-50); pH VBG 7.303 (7.32-7.43)
[2023-06-29 19:28] LABS: Eosinophils Percent Auto 0.5 % (0.0-7.0); Hemoglobin* 14.3 gm/dL (12.0-16.0); Lymphocytes Percent Auto 12.9 % (20-44); Mean Corpuscular HGB Conc 31 gm/dL (32-36); Mean Corpuscular Hemoglobin 26 pg (26-34); Mean Corpuscular Volume 83 fL (80-100); Monocytes Percent Auto 8.1 % (0.0-11.0); Neutrophils Percent Auto 72.5 % (42.0-72.0); Platelet Count* 381 K/uL (140-440); RDW Coefficient of Variation % 14.4 % (11.5-15.5); Red Blood Count 5.57 m/uL (4.00-5.20); White Blood Count* 20.89 K/uL (4.50-11.00)
[2023-06-29 19:31] LABS: Slide Review Reflex Yes
--- NOTE | 2023-06-29 19:32 | XR_ITS ---
Patient: JOSIAS CORONEL Facility:?[facility] Patient ID:?[id number] Site Patient ID:?[id number]. Site :?[id number] Study:?XRay-Chest -06/29/2023 7:42:32 PM Ordering Physician:Trena Final Report: INDICATION: Post cardiac arrest. TECHNIQUE: Chest 1 view. COMPARISON: None. FINDINGS/IMPRESSION: Lines and tubes: Endotracheal tube terminates 2.9 cm above the gómez.. Cardiovascular and mediastinum: Heart size and vasculature are unremarkable for portable technique. Lungs and pleural spaces: Diffuse increased prominence of the pulmonary vasculature, likely reflecting pulmonary edema/positive fluid balance. Bibasilar atelectasis. No definite pleural effusion. No pneumothorax. Bones and soft tissues: No definite displaced rib fractures identified. Dictated by Viktor Martinez MD @ 06/29/2023 8:26:13 PM Signed by:?Viktor Martinez MD @06/29/2023 8:26:13 PM (Electronic Signature)
[2023-06-29 19:34] LABS: Chloride* 103 mmol/L (96-114); Potassium* 4.1 mmol/L (3.6-5.1); Sodium* 139 mmol/L (135-149)
[2023-06-29 19:35] LABS: INR 1.03 (0.91-1.10); Prothrombin Time 14.2 Seconds
[2023-06-29 19:36] LABS: Partial Thromboplastin Time* 28 Seconds (23-33)
[2023-06-29] MEDS: HEPARIN 5,000 UNIT/0.5 ML INJ 4000 UNIT IVP (19:36)
[2023-06-29 19:37] LABS: Anion Gap 13 mEq/L (7-15); Blood Urea Nitrogen* 17 mg/dL (7-30); Calcium* 9.7 mg/dL (8.4-10.6); Carbon Dioxide* 23 mmol/L (20-32); Est. Creatinine Clearance* 56.01; Estimated Glomerular Filt Rate 64 ml/min; Glucose* 277 mg/dL (60-115)
[2023-06-29 19:41] LABS: Troponin, Point-of-Care* 0.03 ng/ml (0.01-0.04)
[2023-06-29 19:49] LABS: Troponin I* 0.03 ng/mL (0.01-0.04)
[2023-06-29 19:59] LABS: D Dimer Quantitative* > 20.00 ug/ml (0.00-0.50)
--- NOTE | 2023-06-29 20:12 | ED.GENADULT ---
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 Nanci's Dinorah tells me that Nanci was noted to have been sitting at the table at home and got up to walk to another room when she heard Nanci fall to the floor. Nanci was having raspy respirations and did have a pulse initially. Dinorah thought perhaps Nanci was having an allergic reaction and gave her a dose of the EpiPen. She did start chest compressions when she thought Nanci was not breathing. EMS arrived in 7-8 minutes and a Luis Angel was applied. Monitor showed V-tach and Nanci was given 1 shock as well as 1 mg of IV epinephrine through an IO which was placed and with continued post shock compressions. At the next rhythm check she had achieved ROSC. Rhythm appeared to be a sinus bradycardia with frequent PVCs. She had an LMA placed by EMS as well as an IO and they were infusing fluids and a total of 250 mL had been given. Nanci was then transferred here to the emergency room. Once in the emergency room patient had a systolic blood pressure of 98 and a pulse in the high 30s and low 40s. She was not moving and had not been given any paralytics or sedation for the placement of the LMA. Related Data Home Medications Medication Instructions Recorded Confirmed mometasone-formoterol HFA 50 mcg-5 2 inh inhalation BID 09/29/21 02/02/23 mcg/actuation aerosol inhaler (Dulera) nortriptyline 10 mg capsule 20 mg PO HS 09/29/21 02/02/23 quetiapine 25 mg tablet 25 mg PO HS 09/29/21 02/02/23 mycophenolate mofetil 250 mg 250 mg PO BID 01/14/23 02/02/23 capsule mycophenolate mofetil 500 mg tablet 1,000 mg PO BID 01/14/23 02/02/23 albuterol sulfate 90 mcg/actuation 2 inh inhalation Q4H PRN 02/02/23 02/02/23 aerosol inhaler dextromethorphan-guaifenesin 30 1 tab PO BID PRN 02/02/23 02/02/23 mg-600 mg tablet extended [id number] hr (Mucus DM) metronidazole 0.75 % topical cream 1 applic topical .1-2X/DAY 02/02/23 02/02/23 Previous Rx's Medication Instructions Recorded benzonatate 200 mg capsule 200 mg PO TID PRN cough #30 caps 01/29/23 codeine 10 mg-guaifenesin 100 mg/5 5 - 10 ml PO Q6H PRN cough #473 mL 01/29/23 mL oral liquid nystatin 100,000 unit/mL oral 5 ml PO QID 2 weeks #280 mL 02/03/23 suspension prednisone 20 mg tablet See Rx Instructions .Route 02/03/23 .COMPLEX #12 tabs hydrocodone 5 mg-acetaminophen 325 1 tab PO Q4-6H PRN pain #15 tabs 03/06/23 mg tablet ketorolac 10 mg tablet 10 mg PO Q8H 5 days #15 tabs 03/06/23 ondansetron HCl 4 mg tablet 4 mg PO Q6H #10 tabs 03/06/23 Allergies Allergy/AdvReac Type Severity Reaction Status Date / Time Sulfa (Sulfonamide Allergy Nausea Verified 01/29/23 13:29 Antibiotics) Review of Systems Status of ROS: Reports: unobtainable due to medical condition Narrative: No recent illnesses or trauma. 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 - Immunodeficiency due to drugs (ICD-10) ?Z79.899 - Other roasterman (current) drug therapy (ICD-10) Social History What is your current living situation?: I presently have a place to live Problems where you live: no known problems Problems where you live details: n/a In the past 12 months, utilities in danger of being shut off: no In past 12 months, lack of transportation kept you from medical appts, meetings, work, or getting things needed for daily living: no In the past 12 mos, have been you worried that your food would run out before you had money to buy more?: never true In the past 12 mos, the food you bought just didn't last and you didn't have money to buy more?: never true Highest level of school completed/degree received: Master's degree Smoking Status: Former smoker Do you use any of these nicotine containing products: None Nicotine containing products detail: half pack a day for 10 years Second hand tobacco smoke exposure: No How often do you have a drink containing alcohol: never How often do you have six or more drinks on one occasion: Never AUDIT-C Alcohol total score: 0 Non-prescribed substance use: denies use Caffeine: Yes (one 16 oz coke daily) How often does anyone, including family, friends and others, physically hurt you: never How often does anyone, including family, friends and others, insult or talk down to you: never How often does anyone, including family, friends and others, threaten you with harm: never How often does anyone, including family, friends and others, scream or curse at you: never service: Yes Exam Narrative: Exam Narrative: Nanci has LMA in place. At this time she has no spontaneous movement. Pupils are reactive however. Neck is supple. No evidence of head trauma. Heart with a bradycardic rate. Lungs are clear bilaterally. Abdomen is obese soft nontender. Lower extremities showed no significant swelling. Nanci was moved from the EMS cot onto our bed. Oxygen and cardiac lead switch to our monitor. An EKG was done immediately which did show sinus bradycardia, inferior lateral ST depression and frequent PVCs. Heart rate initially 41. Bag was used for respiratory support and she was not resisting this. Patient had an IO in place and peripheral IV was started in both arms. Fluid was infused for to a total of 2 L. blood pressure was actually stable but heart rate main remain low. Removal of clothing accomplished. We then removed the Luis Angel device. Planned for removing LMA and replacing with ET tube. Patient began breathing against respirations support with bag and a corneal reflex was noted. Patient was given fentanyl 100 mg, Versed 10 mg and vecuronium 10 mg. With RT present RT was present and using glide scope/ bronchoscope, LMA was removed noting a is a small amount of blood on the LMA. No evidence of swelling of the tongue or cords. Immediately glide scope was placed and cords were visualized. Bronchoscope was then inserted and A 7.5 ET tube was placed without difficulty. Post intubation x-ray showed and of ET tube to be about 2.5 cm above gómez. Lung sounds where noted bilaterally. NG was then placed. Patient's heart rate did decrease to the 30s. Fluid had infused over a L at this point and thus the decision to start epinephrine infusion. We use patient's weight to be about 230 lb are 100 kilos and patient was started at 10 mcg. Patient responded very well heart rate increased to the 40s. Blood pressure was 130s to 140s. Patient was pink and perfusing. A 2nd EKG was done which showed what appeared to be third-degree heart block. QRS complexes were narrow but there did not appear matching P-waves. I was able to speak to [facility] initially but they were unable to accept patient. I was transferred then to [facility] and Dr. Ghotra originally felt that we should go to the ICU based on findings of 1st EKG. However, I did ask nurses to do the 2nd EKG and relate to him that I felt that patient was in third-degree heart block. At that he elected to take patient to the cath lab nurse. [employer] agreed that we should proceed with heparin but felt that a bolus was sufficient at 4000 units and no infusion. Patient had been given additional 100 mcg of fentanyl during her stay. She required no further paralytic. The paralytic that had been drawn up vecuronium 10 mg was given to the EMS team in the event that they would needed. Bonner was inserted. EMS was on site and thus we felt that this would be a faster transfer than calling air support. Const: Vital Signs, click to edit/add: Vital Signs - 24 hr 06/29/23 19:14 06/29/23 19:15 06/29/23 19:15 Pulse Rate 41 L 38 L Pulse Rate [Pulse Oximeter] 42 L Respiratory Rate Blood Pressure 124/84 Pulse Oximetry 95 99 94 Oxygen Delivery Ar thod 06/29/23 19:16 06/29/23 19:22 06/29/23 19:24 Pulse Rate 41 L 38 L Pulse Rate [Pulse Oximeter] Respiratory Rate 25 H Blood Pressure 117/73 98/51 L Pulse Oximetry 93 89 100 Oxygen Delivery Ar thod Intubated 06/29/23 19:26 06/29/23 19:27 06/29/23 19:30 Pulse Rate 37 L 37 L Pulse Rate [Pulse Oximeter] Respiratory Rate 17 13 18 Blood Pressure 107/51 L 122/65 Pulse Oximetry 88 89 Oxygen Delivery Ar thod 06/29/23 19:31 06/29/23 19:32 06/29/23 19:36 Pulse Rate 42 L 42 L 45 L Pulse Rate [Pulse Oximeter] Respiratory Rate 16 16 16 Blood Pressure 128/97 H 138/71 Pulse Oximetry 96 96 97 Oxygen Delivery Ar thod 06/29/23 19:37 06/29/23 19:41 06/29/23 19:45 Pulse Rate 46 L 68 44 L Pulse Rate [Pulse Oximeter] Respiratory Rate 16 16 16 Blood Pressure 144/76 H Pulse Oximetry 97 96 95 Oxygen Delivery Ar thod 06/29/23 19:46 06/29/23 19:51 06/29/23 20:00 Pulse Rate 45 L 45 L Pulse Rate [Pulse Oximeter] Respiratory Rate 16 16 16 Blood Pressure 136/75 139/75 Pulse Oximetry 95 96 Oxygen Delivery Ar thod 06/29/23 20:17 Pulse Rate Pulse Rate [Pulse Oximeter] Respiratory Rate 16 Blood Pressure Pulse Oximetry Oxygen Delivery Me thod Documenting provider has reviewed patient's vital signs: yes Course Course ED Course: Differential diagnosis includes but is not limited to a cardiac arrhythmia secondary to sarcoidosis, PE, acute coronary event, aortic dissection. Troponin is negative. EKG does show initially ST depression in the inferior lateral leads. Heart rhythm deteriorated from sinus bradycardia to a third-degree heart block. Consultations Consultation #1: Had the pleasure of speaking with Dr. Ghotra at [facility] who is 1 other [employer]. Reviewed EKG initial and while on the phone had nursing staff get a 2nd EKG and rhythm strip which was concerning for third-degree heart block. [employer] does agree with heparin bolus, epinephrine infusion. Vital Signs Vital signs: Initial Vital Signs Pulse Rate 41 L 06/29/23 19:14 Blood Pressure 124/84 06/29/23 19:14 Blood Pressure Mean 97 06/29/23 19:14 Pulse Oximetry 95 06/29/23 19:14 Vital Signs Pulse Rate 41 L 06/29/23 19:14 Blood Pressure 124/84 06/29/23 19:14 Pulse Oximetry 95 06/29/23 19:14 Pulse Rate 45 L 06/29/23 19:51 Respiratory Rate 16 06/29/23 20:17 Blood Pressure 139/75 06/29/23 19:51 Pulse Oximetry 96 06/29/23 19:51 Oxygen Delivery Method Intubated 06/29/23 19:24 Medications Administered Medications: Generic Name Dose Route Start Last Admin Trade Name Freq PRN Reason Stop Dose Admin Epinephrine HCl 1 mg/ Dextrose 250 mls @ 149.685 mls/hr 06/29/23 20:43 06/29/23 23:12 IV Infused CONT JOHN Infusion Protocol 0.1 MCG/KG/MIN Discontinued Medications Generic Name Dose Route Start Last Admin Trade Name Freq PRN Reason Stop Dose Admin Fentanyl 100 mcg 06/29/23 20:42 06/29/23 19:00 Fentanyl 100 Mcg/2 Ml Inj IVP 06/29/23 20:43 100 mcg ONCE ONE Administration Fentanyl 100 mcg 06/29/23 20:45 06/29/23 19:38 Fentanyl 100 Mcg/2 Ml Inj IVP 06/29/23 20:46 100 mcg ONCE ONE Administration Heparin Sodium (Porcine) 4,000 unit 06/29/23 19:24 06/29/23 19:36 Heparin 5,000 Unit/0.5 Ml Inj IVP 06/29/23 19:25 4,000 unit ONCE ONE Administration Heparin Sodium (Porcine) 4,000 unit 06/29/23 20:42 06/29/23 20:57 Heparin 5,000 Unit/0.5 Ml Inj IVP 06/29/23 20:43 Not Given ONCE ONE Sodium Chloride 1,000 mls @ 1,000 mls/hr 06/29/23 23:03 06/29/23 23:13 0.9 % Sodium Chloride 1000 Ml IV 06/30/23 00:02 Infused .Q1H JOHN Infusion Sodium Chloride 1,000 mls @ 1,000 mls/hr 06/29/23 23:04 06/29/23 23:13 0.9 % Sodium Chloride 1000 Ml IV 06/30/23 00:03 Infused .Q1H JOHN Infusion Midazolam HCl 10 mg 06/29/23 20:42 06/29/23 19:00 Midazolam Hcl 1 Mg/Ml Inj IVP 06/29/23 20:43 10 mg ONCE ONE Administration Vecuronium [place] 10 mg 06/29/23 20:42 06/29/23 19:04 Vecuronium 1 Mg/Ml Inj IVP 06/29/23 20:43 10 mg ONCE ONE Administration Vecuronium [place] 10 mg 06/29/23 21:12 06/29/23 21:18 Vecuronium 1 Mg/Ml Inj IVP 06/29/23 21:13 Not Given ONCE ONE Medical Decision Making MDM Narrative Medical decision making narrative: 1. Cardiac arrest-patient noted to have V-tach arrest in the field and achieved return of spontaneous circulation after 1 mg of IV epinephrine, shock and chest compressions. Patient has known history of sarcoidosis of the lung according to Dinorah her . However I do note cardiac sarcoidosis is listed under her problem list in her chart. No known drug use or recent trauma. 2 L normal saline infused. Patient initially with LMA switch to ET to. Patient did have movement immediately prior to intubation and thus we did use fentanyl, Versed prior to paralytic being given. Troponin initially 0.03. VBG upon arrival shows pH of 7.3 pCO2 of 39 PO2 of 100 and bicarb of 20. RT on site assists us with ventilator management. Patient has had appropriate end-tidal CO2 during her entire stay in the ED. 2. Third-degree heart block-patient initially had sinus rhythm with frequent PVCs and ST depression in the inferior lateral leads. However during her time here while heart rate improved within epi infusion she actually had dissociation of the P-waves and QRS complexes. This was conveyed to Cardiology will acted to take her to the cath lab nurse at [facility]. Patient was perfusing well with a blood pressure of 144 after infusion was started. Heparin bolus of 4000 units per Cardiology given as well. 3. Leukocytosis-likely demargination. No evidence of fever recent illness. 3. Disposition-ground ambulance ALS transfer to [facility] Dr. Ghotra excepting [employer]. Medical Records Medical records reviewed: Yes I reviewed the patient's medical records Lab Data Lab results reviewed: Yes I reviewed the patient's lab results Labs: Lab Results 06/29/23 06/29/23 06/29/23 Range/Units 19:20 19:25 19:40 WBC 20.89 H (4.50-11.00) K/uL RBC 5.57 H (4.00-5.20) m/uL Hgb 14.3 (12.0-16.0) gm/dL Hct 46.0 (33.0-51.0) % MCV 83 (80-100) fL MCH 26 (26-34) pg MCHC 31 L (32-36) gm/dL RDW Coeff of Cordelia 14.4 (11.5-15.5) % Plt Count 381 (140-440) K/uL Neut % (Auto) 72.5 H (42.0-72.0) % Lymph % (Auto) 12.9 L (20-44) % [place] % (Auto) 8.1 (0.0-11.0) % Eos % (Auto) 0.5 (0.0-7.0) % Baso % (Auto) 0.0 (0.0-3.0) % Neut # (Auto) 15.10 H (1.7-7.0) K/uL Lymph # (Auto) 2.70 (0.90-2.90) K/uL [place] # (Auto) 1.70 H (0.00-0.90) K/UL Eos # (Auto) 0.10 (0.00-0.50) K/uL Baso # (Auto) 0.00 (0.00-0.30) K/uL Abs Immat Gran (auto) 1.30 H (0.00-0.30) K/uL Imm/Tot Granulo (auto) 6.0 % Diff Slide Review Acceptable Review (Acceptable) INR 1.03 (0.91-1.10) APTT 28 (23-33) Seconds D-Dimer Quant (PE/DVT) > 20.00 H (0.00-0.50) ug/ml VBG pH 7.303 L (7.32-7.43) VBG pCO2 39 L (40-50) mmHG VBG pO2 100.0 H (25-47) mmHG VBG HCO3 20 L (21-28) mmol/L Sodium 139 (135-149) mmol/L Potassium 4.1 (3.6-5.1) mmol/L Chloride 103 (96-114) mmol/L Carbon Dioxide 23 (20-32) mmol/L Anion Gap 13 (7-15) mEq/L BUN 17 (7-30) mg/dL Creatinine 1.0 (0.5-1.5) mg/dL Estimated Creat Clear 56.01 Estimated GFR 64 ml/min Glucose 277 H (60-115) mg/dL Calcium 9.7 (8.4-10.6) mg/dL Troponin I 0.03 (0.01-0.04) ng/mL POC Troponin I 0.03 (0.01-0.04) ng/ml Imaging Data Chest x-ray: Attestation: I have reviewed the pertinent imaging results. Radiologist's impression: Lines and tubes: Endotracheal tube terminates 2.9 cm above the gómez.. Cardiovascular and mediastinum: Heart size and vasculature are unremarkable for portable technique. Lungs and pleural spaces: Diffuse increased prominence of the pulmonary vasculature, likely reflecting pulmonary edema/positive fluid balance. Bibasilar atelectasis. No definite pleural effusion. No pneumothorax. Bones and soft tissues: No definite displaced rib fractures identified. ECG Data Attestation: I personally reviewed and interpreted this ECG as follows: Interpretation: EKG 1. Shows sinus bradycardia Critical Care Time Critical Care Time Critical Care Time: Yes Attestation: The patient required my highest level preparedness to intervene emergently and I personally spent this critical care time directly and personally managing the patient. This critical care time included: Obtaining a history; Examining the patient; Pulse oximetry; Ordering and reviewing of studies; Arranging urgent treatment with development of a management plan; Evaluation of patients response to treatment; Frequent reassessment discussions with other providers. This critical care time was performed to assess and manage the high probability of imminent life-threatening deterioration that could result in multiorgan failure. It was exclusive of separate billable procedures and treating other patients and teaching time. Total Critical Care Time in Minutes: 90 Discharge Plan Discharge Clinical Impression: Cardiac arrest, Sarcoidosis Patient Disposition: [facility] Discharge Location: [facility] Condition: Critical Prescriptions: No Action mycophenolate mofetil 500 mg tablet 1,000 mg PO BID mycophenolate mofetil 250 mg capsule 250 mg PO BID Rx Instructions: WITH 1000 MG TO EQUAL 1250 MG benzonatate 200 mg capsule 200 mg PO TID PRN (Reason: cough) Qty: 30 1RF codeine-guaifenesin 10-100 mg/5 mL liquid 5 - 10 ml PO Q6H PRN (Reason: cough) Qty: 473 0RF nortriptyline 10 mg capsule 20 mg PO HS quetiapine 25 mg tablet 25 mg PO HS Dulera 50-5 mcg/actuation HFA aerosol inhaler 2 inh inhalation BID Mucus DM 30-600 mg tablet extended release 12 hr 1 tab PO BID PRN metronidazole 0.75 % cream 1 applic topical .1-2X/DAY Rx Instructions: TO FACE albuterol sulfate 90 mcg/actuation HFA aerosol inhaler 2 inh inhalation Q4H PRN prednisone 20 mg Tablet See Rx Instructions .ROUTE .COMPLEX Qty: 12 0RF Rx Instructions: Take 2 tabs daily for 2 days, then 1 tab daily for 5 days, then 1/2 tab daily for 5 days, then stop. nystatin 100,000 unit/mL suspension 5 ml PO QID 14 Days Qty: 280 0RF Rx Instructions: swish and swallow hydrocodone-acetaminophen 5-325 mg tablet 1 tab PO Q4-6H PRN (Reason: pain) Qty: 15 0RF ondansetron HCl 4 mg tablet 4 mg PO Q6H Qty: 10 0RF ketorolac 10 mg tablet 10 mg PO Q8H 5 Days Qty: 15 0RF Stand Alone Forms: [facility] Info Instructions
[2023-06-29 20:21] LABS: Slide Review Acceptable Review (Acceptable)
== END 2023-06-29 20:05 | disposition short-term general hospital (02) ==
PROVIDERS: Emergency Provider Family Medicine; PCP Physician Assistant Medical
DX: I46.9 Cardiac arrest, cause unspecified (principal); D86.9 Sarcoidosis, unspecified
CPT/HCPCS: 31500; 36415; 71045; 80048; 82803; 84484; 85025; 85027; 85379; 85610; 85730; 93005; 96374; 96375; 99285; 99291; 99292; J0171; J1644; J2250; J3010; J7030; J7050

== ENCOUNTER 2023-06-29 19:49 | Outpatient (CLI) | payer BC, SELFPAY | END 2023-06-29 19:50 | disposition home or self-care (01) | LOC: AMB 07-04 05:34 | PROVIDERS: PCP Physician Assistant Medical; Visit Provider Student in an Organized Health Care Education/Training Program | DX: I49.9 Cardiac arrhythmia, unspecified (principal); D86.9 Sarcoidosis, unspecified | CPT/HCPCS: A0425; A0434 ==

== ENCOUNTER 2023-08-06 20:55 | Outpatient (CLI) | payer BC, SELFPAY ==
--- OUTSIDE RECORDS SUMMARY | 2023-08-06 20:59 | XMS_ITS | Encounter Summary ---
Author Organization [facility] Address [address] [place] [address] Care Team Providers Care Director Of Product Management Name Role Phone Unavailable Primary Care Provider Unavailabl e Reason for Visit * Reason Onset Date Comments Documentation 08/01/2023 Encounter Details Date Type Department Care Team (Latest Contact Info) Description 08/01/2023 Clinical Communication Department of Cardiovascular Medicine in [place], [place] [address] [place] [address] Glory Hole TenderZain M.D. Documentation Social History Tobacco Use Types Packs/Day Years Used Date Smoking Tobacco: Former Cigarettes 0.5 10 0 02/25/1994 - 02/26/2004 Passive Smoke Exposure: Past Smokeless Tobacco: Never Alcohol Use Standard Drinks/Week Comments Yes 2 (1 standard drink = 0.6 oz pur e alcohol) [facility] Utilities Answer Date Recorded In the past 12 months has [facility] [employer], gas, oil, or water [employer] threatened to shut off services in your [...] often do you attend chur ch or spiritism services? More than 4 times per year 11/22/2021 Do you belong to any clubs o r organizations such as baptist groups, unions, fraternal or athletic groups, or [...] and heating? Not hard at all 11/22/2021 [facility] of Occupat ionme Health - Occupational Stress Questionnaire Answer Date [...] living situation today? I have a [facility] place to live 03/30/2023 Education Answer Date Recorded What is the highest level of school you have completed or the highest degree you have received? Master's degree (e.g., MA, MS, Arti, MEd, NAPPER FIXER, GALA) 11/22/2021 Sex and Gender Information Value Date Recorded Sex Assigned at Female 11/22/2021 11:24 PM CDT Gender Identity Female 11/22/2021 11:24 PM CDT Sexual Orientation Lesbian or Alonso 11/22/2021 11 :24 PM CDT documented as of this encounter Miscellaneous Notes * Telephone Encounter - Khadar De La Garza - 08/01/2023 12:34 PM CDT OSM has been requested * Telephone Encounter - Neda Herrera R.N. - 08/01/2023 11:36 AM CDT Images from the original note were not included. Pre-appointment cardiology triage/record review: The following information has been collected from the medical record. It is not a comprehensive summary, and has not been verified with the patient. The Appointment Triage Team does not establish a relationship with the patient, nor manage the patient's care outside of an initial review for the purposes of an appointment. For any questions, please contact the patient's primary provider. [facility] Services' Nurse Chart Review: INDICATION: VT (schedule appointment by another provider outside of CVD) SYMPTOMS & DURATION: cardiac arrest in her home in June gaining her a ICD implant HISTORY: 07/04/23 EP procedure locally: Most Recent Completed Testing: Device Interrogation from 07/16/23: Device implant 07/04/23: * Telephone Encounter - Alize Hester - 08/01/2023 11:29 AM CDT SUBJECTIVE CHIEF COMPLAINT / REASON FOR CALL Documentation Contacts Type Contact Phone/Fax 08/01/2023 11:28 AM CDT Phone (Incoming) Nighat SENIOR (Coworker/Associate) [phone] Other Appointment was scheduled by a colleague without triage Patient was notified already of appointment Nighat called me to reschedule the testing to a different time documented in this encounter Plan of Treatment Upcoming Encounters Date Type Department Care Team (Latest Contact Info) Description 08/16/2023 8:15 AM CDT Clinical Communication Virtual Review in [place], [place] [address] [place] [address] 08/20/2023 8:40 AM CDT Appointment Department of Cardiovascular Diseases in [place], [place] [address] [place] [phone] Neisha Nolan APRN, C.N.P., M.S.N. 08/20/2023 9:10 AM CDT Appointment Department of Laboratory Medicine and Pathology, [facility], in [place], [place] [address] [place] [phone] Neisha Nolan APRN, C.N.P., M.S.N. 08/20/2023 10:45 AM CDT Appointment Department of Cardiovascular Diseases in [place], [place] [address] [place] [phone] Rajat Pizarro M.B.B.S. [address] [place] [phone] 08/20/2023 1:15 PM CDT Appointment Department of Radiology, [facility], in [place], [place] [address] [place] [phone] Neisha Nolan APRN, C.N.Cheryl., M.S.N. 08/21/2023 9:00 AM CDT Office Visit Department of Cardiovascular Medicine in [place], [place] [address] [place] [phone] Ghada Perdomo APRN, YasNJae., M.S.N. [address] [place] [phone] 08/21/2023 11:45 AM CDT Ancillary Procedure Department of Cardiovascular Medicine in [place], [place] [address] [place] [phone] Rajat Pizarro M.B.B.S. [address] [place] [phone] 08/21/2023 1:00 PM CDT Comprehensive Visit Department of Cardiovascular Medicine in [place], [place] [address] [place] [phone] Hamilton Babcock M.D. [address] [place] [phone] 10/21/2023 9:45 AM CDT Clinical Communication Virtual Review in [address] [phone] 10/23/2023 7:30 AM CDT Diagnostic Division of Pulmonary Medicine in [address] [phone] Rajat Pizarro M.B.B.S. [address] [place] [phone] 10/23/2023 8:40 AM CDT Appointment Department of Laboratory Medicine and Pathology, [facility] in [place], [place] [address] [place] [address] Rajat Pizarro M.B.B.S. [address] [place] [address] 10/23/2023 9:15 AM CDT Appointment Department of Radiology, [facility], in [place], [place] [address] [place] [address] Rajat Pizarro M.B.B.S. [address] [place] [phone] 10/23/2023 10:00 AM CDT Office Visit Division of Rheumatology in [place], [place] [address] [place] [address] Rajat Pizarro M.B.B.S. [address] [place] [phone] documented as of this encounter Visit Diagnoses Not on filedocumented in this encounter Additional Health Concerns Infection Onset Date Last Indicated Resolved Time Protective Environment 07/31/2023 07/31/2023 documented as of this encounter
--- OUTSIDE RECORDS SUMMARY | 2023-08-06 20:59 | XMS_ITS | Encounter Summary ---
Author Organization [facility] Address [address] [place] [phone] Care Team Providers Care Dogman/Woman Name Role Phone Unavailable Primary Care Provider Unavailabl e Reason for Visit * Reason Comments Med Refill Encounter Details Date Type Department Care Team (Late st Contact Info) Description 08/06/2023 Refill Division of Rheumatology in [place], [place] [address] [place] [phone] Rajat Pizarro M.B.B.S. [address] [place] [address] Med Refill Social History Tobacco Use Types Packs/Day Years Used Date Smoking Tobacco: Former Cigarettes 0.5 10 0 02/25/1994 - 02/26/2004 Passive Smoke Exposure: Past Smokeless Tobacco: Never Alcohol Use Standard Drinks/Week Comments Yes 2 (1 standard drink = 0.6 oz pur e alcohol) [facility] Utilities Answer Date Recorded In the past 12 months has [facility] [employer], oil, or water [employer] threatened to shut off services in your [...] How often do you attend chur or gnosticist services? More than 4 times per year [...] and heating? Not hard at all 11/22/2021 [facility] of Occupat ional Health - Occupational [...] living situation today? I have a [facility] place to live 03/30/2023 Education Answer Date Recorded What is the highest level of school you have completed or the highest degree you have received? Master's degree (e.g., MA, MS, Arti, Adria, ON SITE SERVICES SPECIALIST, GALA) 11/22/2021 Sex and Gender Information Value Date Recorded Sex Assigned at Female 11/22/2021 11:24 PM CDT Gender Identity Female 11/22/2021 11:24 PM CDT Sexual Orientation Lesbian or Alonso 11/22/2021 11 :24 PM CDT documented as of this encounter Plan of Treatment Upcoming Encounters Date Type Department Care Team (Latest Contact Info) Description 08/16/2023 8:15 AM CDT Clinical Communication Virtual Review in [place], [place] [address] [place] [address] 08/20/2023 8:40 AM CDT Appointment Department of Cardiovascular Diseases in [place], [place] [address] [place] [address] Neisha Nolan, JESSIKA, C.N.P., M.S.N. 08/20/2023 9:10 AM CDT Appointment Department of Laboratory Medicine and Pathology, [facility] in [place], [place] [address] [place] [address] Neisha Nolan APRN, C.NCher, M.S.N. 08/20/2023 10:45 AM CDT Appointment Department of Cardiovascular Diseases in [place], [place] [address] [place] [address] Rajat Pizarro M.Mehnaz.B.S. [address] [place] [phone] 08/20/2023 1:15 PM CDT Appointment Department of Radiology, [facility] in [place], [place] [address] [place] [address] Neisha Nolan APRN, C.N.P., M.S.N. 08/21/2023 9:00 AM CDT Office Visit Department of Cardiovascular Medicine in [place], [place] [address] [place] [phone] Ghada Perdomo APRN, YasNJae., M.S.N. [address] [place] [phone] 08/21/2023 11:45 AM CDT Ancillary Procedure Department of Cardiovascular Medicine in [place], [place] [address] [place] [phone] Rajat Pizarro M.B.B.S. [address] [place] [phone] 08/21/2023 1:00 PM CDT Comprehensive Visit Department of Cardiovascular Medicine in [place], [place] [address] [place] [phone] Hamilton Babcock M.D. [address] [place] [phone] 10/21/2023 9:45 AM CDT Clinical Communication Virtual Review in [place], [place] [address] [place] [address] 10/23/2023 7:30 AM CDT Diagnostic Division of Pulmonary Medicine in [place], [place] [address] [place] [phone] Rajat Pizarro M.B.B.S. [address] [place] [phone] 10/23/2023 8:40 AM CDT Appointment Department of Laboratory Medicine and Pathology, [facility] in [place], [place] [address] [place] [phone] Rajat Pizarro M.B.B.S. [address] [place] [phone] 10/23/2023 9:15 AM CDT Appointment Department of Radiology, [facility] in [place], [place] [address] [place] [phone] Rajat Pizarro M.B.B.S. [address] [place] [phone] 10/23/2023 10:00 AM CDT Office Visit Division of Rheumatology in [place], [place] [address] [place] [phone] Rajta Pizarro M.B.B.S. [address] [place] [phone] documented as of this encounter Visit Diagnoses Diagnosis Sarcoidosis Monitoring For Therapeutic Drug Therapy Osteopenia documented in this encounter Additional Health Concerns Infection Onset Date Last Indicated Resolved Time Protective Environment 07/31/2023 07/31/2023 documented as of this encounter
--- OUTSIDE RECORDS SUMMARY | 2023-08-06 20:59 | XMS_ITS | Referral Summary ---
Author Organization [facility] Address [address] [place] [address] Care Team Providers Care Pot Puncher Name Role Phone Unavailable Primary Care Provider Unavailabl e Source Comments Patient records contain information from all sites at [facility]. For routine questions regarding patient records, call [phone] during business hours, M-F 8:00 AM - 5:00 PM Central Time. Record requests for emergency care only can be directed to [phone] at any time.[facility] Encounters Date Type Department Care Team Description 08/06/2023 Refill Division of Rheumatology in [place], [place] [address] [place] [phone] Rajat Pizarro M.B.B.S. Med Refill 08/05/2023 Refill Division of Rheumatology in [place], [place] [address] [place] [phone] Rajat Pizarro M.B.B.S. Med Refill 08/01/2023 Clinical Communication Department of Cardiovascular Medicine in [place], [place] [address] [place] [phone] Supervisor Wrapping RoomZain M.D. OSM - Outside Materials 08/01/2023 Clinical Communication Department of Cardiovascular Medicine in [place], [place] [address] [place] [phone] Supervisor Wrapping RoomZain M.D. Documentation 08/01/2023 Orders Only Division of Rheumatology in [place], [place] [address] [place] [phone] Rajat Pizarro M.B.B.S. Sarcoidosis (Primary Dx) 07/31/2023 Clinical Communication Division of Rheumatology in [place], [place] [address] [place] [phone] Rajat Pizarro M.B.B.S. 06/21/2023 Documentation Division of Rheumatology in [place], [place] [address] [place] [phone] Rajat Pizarro M.B.B.S. 06/12/2023 11:30 AM CDT Education Division of Rheumatology in [place], [place] [address] [place] [phone] Olivia Arreguin M.D. Washnieski, Shane M, R.NSandie Sarcoidosis; Immunodeficiency Due To Drugs (HCC) 06/12/2023 12:01 PM CDT - 06/12/2023 12:55 PM CDT Hospital Encounter Department of Laboratory Medicine and Pathology, [address] [phone] Olivia Arreguin M.D. Sarcoidosis; Immunodeficiency Due To Drugs (HCC) Discharge Disposition: Home or Self Care 06/12/2023 12:56 PM CDT - 06/12/2023 11:59 PM CDT Hospital Encounter Department of Radiology, [address] [phone] Olivia Arreguin M.D. Sarcoidosis; Corticosteroid Treatment Fpc Systemic; Immunodeficiency Due To Drugs (HCC) Discharge Disposition: Home or Self Care 06/12/2023 12:00 PM CDT Hospital Encounter Department of Laboratory Medicine and Pathology, [place], [place] [address] [place] [phone] Olivia Arreguin M.D. Sarcoidosis; Immunodeficiency Due To Drugs (HCC) Discharge Disposition: Home or Self Care 06/12/2023 10:15 AM CDT Comprehensive Visit Division of Rheumatology in [address] [phone] Rajat Pizarro M.B.B.S. 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 Genetic Susceptibility To Disease from Last 3 Months Allergies Active Allergy Reactions Criticality Noted Date Comments Sulfa (Sulfonamide Antibiotics) Nausea And Vomiting 01/30/2021 Medications Medication Sig Dispensed Refills Start Date End Date Status albuterol 90 mcg/actuation inhaler Inhale 2 puffs every 6 (six) hours as needed. 12/13/2020 Active mometasone-formote rol (Dulera) 200-5 mcg/actuation inhaler Inhale 2 puffs 2 (two) times a day. 09/09/2021 Active nortriptyline (PAMELOR) 10 mg capsule Take 20 mg by mouth at bedtime. 05/22/2021 Active QUEtiapine (SEROquel) 25 mg tablet Take 25 mg by mouth at bedtime. 05/22/2021 Active metroNIDAZOLE (METROCREAM) 0.75 % cream Apply 1 Application topically daily. 06/05/2022 Active predniSONE (DELTASONE) 5 mg tabletIndications: Sarcoidosis,Monito ring For Therapeutic Drug Therapy,Osteopenia Take 6 tablets (30 mg total) by [...] total) daily for 14 days. 574 tablet 06/21/2023 12/06/2023 Active methotrexate 25 mg/mL injectionIndicatio ns:Sarcoidosis,Mon itoring For Therapeutic Drug Therapy,Osteopenia Inject 0.4 mL (10 mg total) under the skin once a week for 14 days, THEN 0.6 mL (15 mg total) once a week for 14 days, THEN 0.8 mL (20 mg total) once a week. Remember labs. 18.8 mL 06/21/2023 12/16/2023 Active needle, disp, 27 gauge 27 gauge x 1/2 needleIndications: Sarcoidosis,Monito ring For Therapeutic Drug Therapy,Osteopenia For methotrexate injections. 100 each 06/21/2023 Active syringe, disposable, 1 mL syringeIndications :Sarcoidosis,Monit oring For Therapeutic Drug Therapy,Osteopenia For methotrexate injections. 100 each 06/21/2023 Active folic acid 1 mg tabletIndications: Sarcoidosis,Monito ring For Therapeutic Drug Therapy,Osteopenia Take 1 tablet (1 mg total) by mouth daily. 90 tablet 1 06/21/2023 Active atovaquone (MEPRON) 750 mg/5 mL suspensionIndicati ons:Sarcoidosis,Mo nitoring For Therapeutic Drug Therapy,Osteopenia Take 5 mL (750 mg total) by mouth 2 (two) times a day with meals. For PCP prophylaxis while prednisone dose is > 15 mg daily 300 mL 2 06/21/2023 09/19/2023 Active Active Problems Problem Noted Date Diagnosed [...] drink = 0.6 oz pur e alcohol) [facility] Utilities Answer Date Recorded In the past 12 months has [employer], gas, oil, or water [employer] [place] threatened to shut off services in your [...] How often do you attend chur or hinduism services? More than 4 times per year 11/22/2021 Do you belong to any clubs o r organizations such as religious groups, unions, fraternal or athletic groups, or [...] and heating? Not hard at all 11/22/2021 [facility] [place] of Occupat ionms Health - Occupational Stress Questionnaire Answer Date [...] your living situation today? I have a [facility] place to live 03/30/2023 Education Answer Date Recorded What is the highest level of school you have completed or the highest degree you have received? Master's degree (e.g., MA, MS, Arti, MEd, [employer]US [employer], GALA) 11/22/2021 Sex and Gender Information Value Date Recorded Sex Assigned at Female 11/22/2021 11:24 PM CDT Gender Identity Female 11/22/2021 11:24 PM CDT Sexual Orientation Lesbian or Alonso 11/22/2021 11 :24 PM CDT Last Filed Vital Signs Vital Sign Reading Time Taken Comments Blood Pressure 153/85 04/04/2023 1:48 PM AGRICULTURAL EQUIPMENT MECHANIC Pulse 82 04/04/2023 1:48 PM AGRICULTURAL EQUIPMENT MECHANIC Temperature 35.1 ??C (95.2 ??F) 11/21/2021 7:47 AM CD T Respiratory Rate - - Oxygen Saturation 97% 11/21/2021 7:47 AM CDT Inhaled Oxygen Concentration - - Weight 106 kg (232 lb 14.7 oz) 04/04/2023 1:46 P M AGRICULTURAL EQUIPMENT MECHANIC Height 171 cm (5' 7.32) 04/04/2023 1:46 PM AGRICULTURAL EQUIPMENT MECHANIC Body Mass Index 36.13 04/04/2023 1:46 PM AGRICULTURAL EQUIPMENT MECHANIC Plan of Treatment Upcoming Encounters Date Type Department Care Team (Latest Contact Info) Description 08/16/2023 8:15 AM CDT Clinical Communication Virtual Review in [place], [place] [address] [place] [phone] 08/20/2023 8:40 AM CDT Appointment Department of Cardiovascular Diseases in [place], [place] [address] [place] [phone] Neisha Nolan APRN C.N.P., M.S.N. 08/20/2023 9:10 AM CDT Appointment Department of Laboratory Medicine and Pathology, [facility] in [place], [place] [address] [place] [phone] Neisha Nolan APRN, C.N.P., M.S.N. 08/20/2023 10:45 AM CDT Appointment Department of Cardiovascular Diseases in [place], [place] [address] [place] [phone] Rajat Pizarro M.B.B.S. [address] [place] [phone] 08/20/2023 1:15 PM CDT Appointment Department of Radiology, [facility] in [place], [place] [address] [place] [phone] Neisha Nolan APRN, C.N.P., M.S.N. 08/21/2023 9:00 AM CDT Office Visit Department of Cardiovascular Medicine in [place], [place] [address] [place] [phone] Ghada Perdomo APRN, C.N.P., M.S.N. [address] [place] [phone] 08/21/2023 11:45 AM CDT Ancillary Procedure Department of Cardiovascular Medicine in [place], [place] [address] [place] [phone] Rajat Pizarro M.B.B.S. [address] [place] [phone] 08/21/2023 1:00 PM CDT Comprehensive Visit Department of Cardiovascular Medicine in [place], [place] [address] [place] [phone] Hamilton Babcock M.D. [address] [place] [phone] 10/21/2023 9:45 AM CDT Clinical Communication Virtual Review in [place], [place] [address] [place] [phone] 10/23/2023 7:30 AM CDT Diagnostic Division of Pulmonary Medicine in [place], [place] [address] [place] [phone] Rajat Pizarro M.B.B.S. [address] [place] [phone] 10/23/2023 8:40 AM CDT Appointment Department of Laboratory Medicine and Pathology, [facility], in [place], [place] [address] [place] [phone] Rajat Pizarro M.B.B.S. [address] [place] [phone] 10/23/2023 9:15 AM CDT Appointment Department of Radiology, [facility], in [place], [place] [address] [place] [phone] Rajat Pizarro M.B.B.S. [address] [place] [phone] 10/23/2023 10:00 AM CDT Office Visit Division of Rheumatology in [place], [place] [address] [place] [address] Rajat Pizarro M.B.B.S. [address] [place] [phone] Procedures Procedure Name Priority Date/Time Associated Diagnosis Comments EXTI BASIC METABOLIC PANEL, S/P Routine 07/17/2023 4:11 PM CDT BMD BONE DENSITY SPINE HIPS RAD - Routine (most inpatients and all outpatients) 06/12/2023 1:34 PM CDT Sarcoidosis Corticosteroid Treatment Fpc Systemic Immunodeficiency Due To Drugs (HCC) DIPSTICK, [...] LIPID PANEL, S Routine 04/04/2023 8:00 AM AGRICULTURAL EQUIPMENT MECHANIC Failure Heart (HCC) BI BREAST SCREENING BILATERAL [...] Bone Mineral Density (BMD) analysis performed on [employer] with serial number [id number]. ? FINDINGS: Left Hip: Femur Neck: BMD [...] image stored in the BMD study in [employer]), the calculated ten year probability of fracture is: FRAX Risk Factors: None FRAX (10 yr probability) adjusted for TBS: Major Osteoporotic Fracture: ??4.4 % Hip Fracture: ?0.2 % ? Procedure Note Scot Carrasco M.D. - 06/12/2023 EXAM: BMD BONE DENSITY SPINE HIPS Bone Mineral Density (BMD) analysis performed on [employer] with serialnumber [id number]. FINDINGS: Left Hip: Femur Neck: BMD = [...] Olivia Arreguin M.D. LAB URINE ALEXANDER OLSEN [facility] [address] [place] [address], [place] DTL [facility] [address] [place] [address] * Microscopic Automated (06/12/2023 12:31 PM CDT) [...] LAB URINE ALEXANDER OLSEN Performing Organization Address City/[facility]/ZIP Co de Phone Number [facility] [address] [place], [place] [phone] [place] [address] [facility] 200 [place] [address] * pH, Urine (06/12/2023 12:31 PM CDT) Pathologist [facility] pH, U 5.8 4.5 - 8.0 06/12/2023 1:4 8 PM CDT DTL Urine 06/12/2023 12:3 1 PM CDT 06/12/2023 12:53 PM CDT Olivia Arreguin M.D. LAB URINE ORDE RAÚL Performing Organization Address City/[facility]/ZIP Co de Phone Number [facility] [address] [place] [address], [facility] [place] 200 [place] [address] * Protein/Creatinine Ratio, Random, Urine (06/12/2023 12:31 [...] LAB URINE ALEXANDER OLSEN Performing Organization Address City/[facility]/ZIP Co de Phone Number [facility] [address] [place], [place] [phone] [place] [address] 200 [place] [address] * Osmolality, Urine (06/12/2023 12:31 PM CDT) Osmolality, U 804 150 - 1150 mOsm/kg 06/12/2023 1:48 PM CDT DTL Urine 06/12/2023 12:3 1 PM CDT 06/12/2023 12:53 PM CDT Olivia Arreguin M.D. LAB URINE ALEXANDER OLSEN Performing Organization Address City/[facility] Co de Phone Number [facility] 200 [place] [address], [address] [address] * Calcium/Creatinine Ratio, Random, Urine (06/12/2023 12:31 [...] LAB URINE ALEXANDER ESPINOJOHANN Performing Organization Address City/[facility] Co de Phone Number [facility] [address] [place] [address], [facility] [place] 200 [place] [address] * Urinalysis, with Microscopic: Urine, Midstream (06/12/2023 [...] LAB URINE ALEXANDER OLSEN Performing Organization Address City/[facility]/ZIP Co de Phone Number [facility] [address] [place] [address], [facility] [address] [place] [address] * HBc Total Ab, Serum (06/12/2023 12:28 PM CDT) Pathologist [facility] HBc Total Ab, S Negative Negative 06/12/2023 8:08 PM CDT SDSC Blood (Blood, Venous) 06/12/2023 12:28 PM CDT 06/12/2023 4:50 PM CDT Olivia Arreguin M.D. LAB MICROBIOLO GY - BLOOD ORDERABLES Performing Organization Address City/[facility]/ZIP Co de Phone Number [facility] [address] [place] [address] [facility] [address] [place] [address] * HBs Antibody, Serum (06/12/2023 12:28 PM CDT) HBs Antibody, S Negative 06/12/2023 8:08 PM CDT [facility] Comment: Patient is presumed to be not immune to infection with HBV. ----REFERENCE VALUE---- Unvaccinated: Negative Vaccinated: Positive HBs Antibody, Quantitative, S <5.0 mIU/mL 06/12/2023 8:08 PM CDT [facility] Comment: ----REFERENCE VALUE---- Unvaccinated: <5.0 Vaccinated: >=12.0 Blood (Blood, Venous) 06/12/2023 12:28 PM CDT 06/12/2023 4:50 PM CDT Olivia Arreguin M.D. LAB MICROBIOLO GY - BLOOD ORDERABLES Performing Organization Address [facility] Co de Phone Number [facility] [address] [place] [address] [facility] [address] [place] [place] [address] * (ABNORMAL) CRP (C-Reactive Protein) (06/12/2023 12:28 PM CDT) C-Reactive Protein (CRP), S 5.2(H) <5.0 mg/L 06/12/2023 1:27 PM CDT DTL Blood (Blood, Venous) 06/12/2023 12:28 PM CDT 06/12/2023 1:04 PM CDT Olivia Arreguin M.D. LAB BLOOD ADD- ON Performing Organization Address City/[facility]/ZIP Co de Phone Number [facility] 200 [place] [address], [facility] DTL [facility] 200 [place] [address] * (ABNORMAL) Comprehensive Metabolic Panel (06/12/2023 12:28 PM CDT) [facility] Potassium, S 4.2 3.6 - 5.2 mmol/L [...] LAB BLOOD ADD- ON Performing Organization Address City/[facility]/ZIP Co de Phone Number [facility] [address] [place] [address], [facility] [address] [place] [address] * HCV Ab w/Reflex to HCV PCR, Serum (06/12/2023 12:27 PM CDT) Pathologist [facility] HCV Ab, S Negative Negative 06/14/2023 10:56 AM CDT [facility] Comment: Consumption of high-dose biotin supplement within 12 hours of blood collection for this test can cause false-negative results. Blood (Blood, Venous) 06/12/2023 12:27 PM CDT 06/12/2023 4:50 PM CDT Olivia Arreguin M.D. LAB MICROBIOLO GY - BLOOD ORDERABLES Performing Organization Address [facility] Co de Phone Number [facility] [address] [place] [address] [place] [address] [place] [address] * 1,25-Dihydroxyvitamin D (06/12/2023 12:27 PM CDT) Pathologist [facility] 1, 25 DIHYDROXYVITAMIN D, S 41 18 - 78 pg/mL 06/14/2023 2:01 PM CDT [facility] Comment: ----ADDITIONAL INFORMATION---- This test was developed and its performance characteristics determined by [facility] in a manner consistent with CLIA requirements. This test has not been cleared or approved by the U.S. Food and Drug Administration. Blood (Blood, Venous) 06/12/2023 12:27 PM CDT 06/13/2023 7:43 AM CDT Olivia Arreguin M.D. LAB BLOOD ADD- ON Performing Organization Address City/[facility]/ZIP Co de Phone Number [facility] [address] [place] [address] [facility] [address] [place] [address] [place] [address] * (ABNORMAL) 25-Hydroxyvitamin D2 and D3 (06/12/2023 [...] developed and its performance characteristics determined by [facility] in a manner consistent with CLIA requirements. This test has not been cleared or approved by the U.S. Food and Drug Administration. Blood (Blood, Venous) 06/12/2023 12:27 PM CDT 06/13/2023 7:17 AM CDT Olivia Arreguin M.D. LAB BLOOD ADD- ON Performing Organization Address City/[facility]/ZIP Co de Phone Number [facility] [address] [place] [address] [facility] [address] [place] [address] [place] [address] * Hepatitis B Surface Antigen (06/12/2023 12:27 PM CDT) Pathologist [facility] HBs Antigen, S Negative Negative 06/14/2023 10:56 AM CDT SDS Blood (Blood, Venous) 06/12/2023 12:27 PM CDT 06/12/2023 4:50 PM CDT Olivia Arreguin M.D. LAB MICROBIOLO GY - BLOOD ORDERABLES Performing Organization Address City/[facility]/ZIP Co de Phone Number [facility] [address] [place] [address] [facility] [address] [place] [address] * Sedimentation Rate (06/12/2023 12:27 PM CDT) Pathologist [facility] Sedimentation Rate, B 16 2 - 22 mm/h 06/12/2023 1:57 PM CDT DTL Blood (Blood, Venous) 06/12/2023 12:27 PM CDT 06/12/2023 12:51 PM CDT Olivia Arreguin M.D. LAB BLOOD ADD- ON Performing Organization Address City/[facility]/ZIP Co de Phone Number [facility] 200 [place] [address], [facility] 200 [place] [address] * (ABNORMAL) CBC with Differential, Blood (06/12/2023 12:27 PM CDT) [facility] Hemoglobin 13.4 11.6 - 15.0 g/dL 06/12/2023 [...] Olivia Arreguin M.D. LAB BLOOD ADD- ON [facility] 200 [place] [address], [facility] DTL [facility] 200 [place], [place] [phone] [place] [address] 200 [place] [address] * GGT (Gamma-Glutamyltransferase) (06/12/2023 12:22 PM CDT) Gamma Glutamyltransferase (GGT), S 10 5 - 36 U/L 06/12/2023 6:19 PM CDT DTL Blood (Blood, Venous) 06/12/2023 12:22 PM CDT 06/12/2023 5:18 PM CDT Olivia Arreguin M.D. LAB BLOOD ADD- ON [facility] 200 [place] [address], [facility] DTL [facility] 200 [place] [address] * (ABNORMAL) Lipid Panel (04/04/2023 8:00 AM AGRICULTURAL EQUIPMENT MECHANIC) Triglycerides 144 mg/dL 04/04/2023 9:16 AM AGRICULTURAL EQUIPMENT MECHANIC DTL Comment: ----REFERENCE VALUE---- Normal: <150 mg/dL Borderline High: 150-199 mg/dL High: 200-499 mg/dL Very High: > or =500 mg/dL Cholesterol, Total 180 mg/dL 2023 9:16 AM AGRICULTURAL EQUIPMENT MECHANIC DTL Comment: ----REFERENCE VALUE---- Desirable: < 200 mg/dL Borderline High: 200 - 239 mg/dL High: > or = 240 mg/dL Cholesterol, LDL, Calculated 107 mg/dL 04/04/2023 9:16 AM AGRICULTURAL EQUIPMENT MECHANIC DTL Comment: ----REFERENCE VALUE---- Desirable: <100 mg/dL Above Desirable: 100-129 mg/dL Borderline High: 130-159 mg/dL High: 160-189 mg/dL Very High: >=190 mg/dL ----ADDITIONAL INFORMATION---- LDL cholesterol calculated using the Gardner/NIH equation. Cholesterol, HDL, S 48(L) >=50 mg/dL 04/04/2023 9:16 AM AGRICULTURAL EQUIPMENT MECHANIC DTL Cholesterol, Non-HDL, Calculated 132 mg/dL 04/04/2023 9:16 AM AGRICULTURAL EQUIPMENT MECHANIC DTL Comment: ----REFERENCE VALUE---- Desirable: <130 mg/dL Above Desirable: 130-159 mg/dL Borderline High: 160-189 mg/dL High: 190-219 mg/dL Very High: > or =220 mg/dL Fasting (8 HR or more) No 04/04/2023 8:41 AM AGRICULTURAL EQUIPMENT MECHANIC DTL Blood (Blood, Venous) 04/04/2023 8:00 AM AGRICULTURAL EQUIPMENT MECHANIC 04/04/2023 8:41 AM AGRICULTURAL EQUIPMENT MECHANIC Neisha Nolan APRN, C.N.P., M.S.N. LAB B WILFRED ADD-ON [facility] [address] [place] [address], [facility] [address] [place] [address] from Last 3 Months or Most Recently Relevant to Health Maintenance Additional Health Concerns Infection Onset Date Last Indicated Protective Environment 07/31/2023 4
--- OUTSIDE RECORDS SUMMARY | 2023-08-06 20:59 | XMS_ITS | Encounter Summary ---
Author Organization [facility] Address [address] [place] [id number] Care Team Providers Care Healthcare Associate Name Role Phone Unavailable Primary Care Provider Unavailabl e Reason for Visit * Reason Comments Med Refill Encounter Details Date Type Department Care Team (Late st Contact Info) Description 08/05/2023 Refill Division of Rheumatology in [place], [place] [address] [place] [phone] Rajat Pizarro M.B.B.S. [address] [place] [address] Med Refill Social History Tobacco Use Types Packs/Day Years Used Date Smoking Tobacco: Former Cigarettes 0.5 10 0 02/25/1994 - 02/26/2004 Passive Smoke Exposure: Past Smokeless Tobacco: Never Alcohol Use Standard Drinks/Week Comments Yes 2 (1 standard drink = 0.6 oz pur e alcohol) [facility] Utilities Answer Date Recorded In the past 12 months has [facility] [employer], oil, or water [employer] threatened to shut off services in your [...] How often do you attend chur or yarsani services? More than 4 times per year 11/22/2021 Do you belong to any clubs o r organizations such as christian groups, unions, fraternal or athletic groups, or [...] and heating? Not hard at all 11/22/2021 [facility] - Occupational [...] your living situation today? I have a [facility] to live 03/30/2023 Education Answer Date Recorded What is the highest level of school you have completed or the highest degree you have received? Master's degree (e.g., MA, MS, Arti, Adria, LEGAL [employer]ITY [employer], G[employer]) 11/22/2021 Sex and Gender Information Value Date Recorded Sex Assigned at Female 11/22/2021 11:24 PM CDT Gender Identity Female 11/22/2021 11:24 PM CDT Sexual Orientation Lesbian or Alonso 11/22/2021 11 :24 PM CDT documented as of this encounter Plan of Treatment Upcoming Encounters Date Type Department Care Team (Latest Contact Info) Description 08/16/2023 8:15 AM CDT Clinical Communication Virtual Review in [place], [place] [address] [place] [address] 08/20/2023 8:40 AM CDT Appointment Department of Cardiovascular Diseases in [place], [place] [address] [place] [address] Neisha Nolan, JESSIKA, C.N.P., M.S.N. 08/20/2023 9:10 AM CDT Appointment Department of Laboratory Medicine and Pathology, [facility] in [place], [place] [address] [place] [address] Neisha Nolan APRN, C.NCher, M.S.N. 08/20/2023 10:45 AM CDT Appointment Department of Cardiovascular Diseases in [place], [place] [address] [place] [address] Rajat Pizarro M.Mehnaz.B.S. [address] [place] [phone] 08/20/2023 1:15 PM CDT Appointment Department of Radiology, [facility] in [place], [place] [address] [place] [address] Neisha Nolan APRN, C.N.P., M.S.N. 08/21/2023 9:00 AM CDT Office Visit Department of Cardiovascular Medicine in [place], [place] [address] [place] [phone] Ghada Perdomo APRN, YasNJae., M.S.N. [address] [place] [phone] 08/21/2023 11:45 AM CDT Ancillary Procedure Department of Cardiovascular Medicine in [place], [place] [address] [place] [phone] Rajat Pizarro M.B.B.S. [address] [place] [phone] 08/21/2023 1:00 PM CDT Comprehensive Visit Department of Cardiovascular Medicine in [place], [place] [address] [place] [phone] Hamilton Babcock M.D. [address] [place] [phone] 10/21/2023 9:45 AM CDT Clinical Communication Virtual Review in [place], [place] [address] [place] [address] 10/23/2023 7:30 AM CDT Diagnostic Division of Pulmonary Medicine in [place], [place] [address] [place] [phone] Rajat Pizarro M.B.B.S. [address] [place] [phone] 10/23/2023 8:40 AM CDT Appointment Department of Laboratory Medicine and Pathology, [facility] in [place], [place] [address] [place] [phone] Rajat Pizarro M.B.B.S. [address] [place] [phone] 10/23/2023 9:15 AM CDT Appointment Department of Radiology, [facility] in [place], [place] [address] [place] [phone] Rajat Pizarro M.B.B.S. [address] [place] [phone] 10/23/2023 10:00 AM CDT Office Visit Division of Rheumatology in [place], [place] [address] [place] [phone] Rajat Pizarro M.B.B.S. [address] [place] [phone] documented as of this encounter Visit Diagnoses Diagnosis Sarcoidosis Monitoring For Therapeutic Drug Therapy Osteopenia documented in this encounter Additional Health Concerns Infection Onset Date Last Indicated Resolved Time Protective Environment 07/31/2023 07/31/2023 documented as of this encounter
--- OUTSIDE RECORDS SUMMARY | 2023-08-06 20:59 | XMS_ITS ---
Author Organization [facility] Address [address] [place] [address] Care Team Providers Care Absorber Operator Name Role Phone Unavailable Unavailable Unavailable Surgery Details Not on file Complications Check Surgery Details section. Procedure Estimated Blood Loss Check Surgery Details section. Procedure Findings Check Surgery Details section. Procedure Specimens Taken Check Surgery Details section.
--- OUTSIDE RECORDS SUMMARY | 2023-08-06 20:59 | XMS_ITS | Clinical Summary ---
Author Organization [facility] Address [address] [place] [address] Care Team Providers Care Windscreen Fitter Name Role Phone Unavailable Primary Care Provider Unavailabl e Source Comments Patient records contain information from all sites at [facility]. For routine questions regarding patient records, call [phone] during business hours, M-F 8:00 AM - 5:00 PM Central Time. Record requests for emergency care only can be directed to [phone] at any time.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 Med Refill 08/05/2023 Refill Division of Rheumatology in [place], [place] [address] [place] [address] Rajat Pizarro M.B.B.S. Med Refill 08/01/2023 Clinical Communication Department of Cardiovascular Medicine in [place], [place] [address] [place] [phone] Diabetes NurseZain M.D. OSM - Outside Materials 08/01/2023 Clinical Communication Department of Cardiovascular Medicine in [place], [place] [address] [place] [phone] Diabetes NurseZain M.D. Documentation 08/01/2023 Orders Only Division of Rheumatology in [place], [place] [address] [place] [phone] Rajat Pizarro M.B.B.S. Sarcoidosis (Primary Dx) 07/31/2023 Clinical Communication Division of Rheumatology in [place], [place] [address] [place] [phone] Rajat Pizarro M.B.B.S. 06/21/2023 Documentation Division of Rheumatology in [place], [place] [address] [place] [phone] Rajat Pizarro M.B.B.S. 06/12/2023 12:56 PM CDT - 06/12/2023 11:59 PM CDT Hospital Encounter Department of Radiology, [place], [place] [address] [place] [phone] Olivia Arreguin M.D. Sarcoidosis; Corticosteroid Treatment [facility]iary Systemic; Immunodeficiency Due To Drugs (HCC) Discharge Disposition: Home or Self Care 06/12/2023 12:01 PM CDT - 06/12/2023 12:55 PM CDT Hospital Encounter Department of Laboratory Medicine and Pathology, [place], [place] [address] [place] [phone] Olivia Arreguin M.D. Sarcoidosis; Immunodeficiency Due To Drugs (HCC) Discharge Disposition: Home or Self Care 06/12/2023 12:00 PM CDT Hospital Encounter Department of Laboratory Medicine and Pathology, [place], [place] [address] [place] [phone] Olivia Arreguin M.D. Sarcoidosis; Immunodeficiency Due To Drugs (HCC) Discharge Disposition: Home or Self Care 06/12/2023 11:30 AM CDT Education Division of Rheumatology in [place], [place] [address] [place] [phone] Olivia Arreguin M.D. Washnieski, Shane M, RSandieNSandie Sarcoidosis; Immunodeficiency Due To Drugs (HCC) 06/12/2023 10:15 AM CDT Comprehensive Visit Division of Rheumatology in [place], [place] [address] [place] [phone] Rajat Pizarro M.B.B.SSandie Sarcoidosis (Primary Dx); Corticosteroid Treatment Supplies Packer Systemic; Immunodeficiency Due To Drugs (HCC); Elevated Alkaline Phosphatase 06/11/2023 9:00 AM CDT Clinical Communication Virtual Review in [place], [place] 200 [place] [address] Pre-visit Intake (INDIRA done 06/10 EEF) 05/07/2023 Orders Only Division of Gastroenterology in [address] [phone] Emeterio Friedman M.D. Genetic Susceptibility To Disease from Last 3 Months Family History Medical [...] = 0.6 oz pur e alcohol) [facility] Utilities Answer Date Recorded In [...] often do you attend chur ch or oriental orthodox services? More than 4 times per year [...] and heating? Not hard at all 11/22/2021 [facility] [place] [facility] - Occupational Stress Questionnaire Answer [...] Master's degree (e.g., DUSTY, MS, Arti, MEd, BEHAVIOR INTERVENTIONIST, GALA) 11/22/2021 Sex and Gender Information Value Date Recorded Sex Assigned at Female 11/22/2021 11:24 PM CDT Gender Identity Female 11/22/2021 11:24 PM CDT Sexual Orientation Lesbian or Alonso 11/22/2021 11 :24 PM CDT Last Filed Vital Signs Vital Sign Reading Time Taken Comments Blood Pressure 153/85 04/04/2023 1:48 PM ANTIQUE CLOCK REPAIRER Pulse 82 04/04/2023 1:48 PM ANTIQUE CLOCK REPAIRER Temperature 35.1 ??C (95.2 ??F) 11/21/2021 7:47 AM CD T Respiratory Rate - - Oxygen Saturation 97% 11/21/2021 7:47 AM CDT Inhaled Oxygen Concentration - - Weight 106 kg (232 lb 14.7 oz) 04/04/2023 1:46 P M ANTIQUE CLOCK REPAIRER Height 171 cm (5' 7.32) 04/04/2023 1:46 PM ANTIQUE CLOCK REPAIRER Body Mass Index 36.13 04/04/2023 1:46 PM ANTIQUE CLOCK REPAIRER Plan of Treatment Upcoming Encounters Date Type Department Care Team (Latest Contact Info) Description 08/16/2023 8:15 AM CDT Clinical Communication Virtual Review in [place], [place] [address] [place] [address] 08/20/2023 8:40 AM CDT Appointment Department of Cardiovascular Diseases in [place], [place] [address] [place] [phone] Neisha Nolan APRN, C.N.P., M.S.N. 08/20/2023 9:10 AM CDT Appointment Department of Laboratory Medicine and Pathology, [facility] in [place], [place] [address] [place] [phone] Neisha Nolan APRN C.N.P., M.S.N. 08/20/2023 10:45 AM CDT Appointment Department of Cardiovascular Diseases in [place], [place] [address] [place] [phone] Rajat Pizarro M.B.B.S. [address] [place] [phone] 08/20/2023 1:15 PM CDT Appointment Department of Radiology, [facility], in [place], [place] [address] [place] [phone] Neisha Nolan APRN, C.NCher, M.S.N. 08/21/2023 9:00 AM CDT Office Visit Department of Cardiovascular Medicine in [place], [place] [address] [place] [phone] Ghada Perdomo APRN, C.N.P., M.S.N. [address] [place] [phone] 08/21/2023 11:45 AM CDT Ancillary Procedure Department of Cardiovascular Medicine in [place], [place] [address] [place] [phone] Rajat Pizarro M.B.B.S. [address] [place] [phone] 08/21/2023 1:00 PM CDT Comprehensive Visit Department of Cardiovascular Medicine in [place], [place] [address] [place] [phone] Hamilton Babcock M.D. [address] [place] [phone] 10/21/2023 9:45 AM CDT Clinical Communication Virtual Review in [place], [place] 200 [place] [address] 10/23/2023 7:30 AM CDT Diagnostic Division of Pulmonary Medicine in [place], [place] [address] [place] [phone] Rajat Pizarro M.B.B.S. [address] [place] [phone] 10/23/2023 8:40 AM CDT Appointment Department of Laboratory Medicine and Pathology, [facility], in [place], [place] [address] [place] [phone] Rajat Pizarro M.B.B.S. [address] [place] [address], [place] [phone] 10/23/2023 9:15 AM CDT Appointment Department of Radiology, [facility], in [place], [place] [address] [place] [address] Rajat Pizarro M.B.B.S. [address] [place] [address] 10/23/2023 10:00 AM CDT Office Visit Division of Rheumatology in [place], [place] [address] [place] [address] Rajat Pizarro M.B.B.S. [address] [place] [address] Health Maintenance Due Date Last Done Comments CT Colonography 1963 Cervical Cancer Screening 1965 Cologuard 1965 Colonoscopy 1963 Colorectal Cancer Screening 1963 FIT 1963 HIV Screening 1963 Depression Screening (Annual PHQ-2) 02/25/2023 Mammogram 06/19/2023 06/18/2022, 06/18/2022 Zoster Vaccines (2 of 2) 08/12/2023 06/17/2023 Fasting Glucose for Diabetes Screening 07/16/2026 07/17/2023, 07/04/2023, 07/02/2023, Additional history exists Lipid (Cholesterol) Screening 04/04/2028 [...] 06/12/2023 1:34 PM CDT Sarcoidosis Corticosteroid Treatment Supplies Packer Systemic Immunodeficiency Due To Drugs (HCC) DIPSTICK, [...] LIPID PANEL, S Routine 04/04/2023 8:00 AM ANTIQUE CLOCK REPAIRER Failure Heart (HCC) BI BREAST SCREENING BILATERAL [...] Bone Mineral Density (BMD) analysis performed on [employer] with serial number [id number]. ? FINDINGS: Left Hip: Femur Neck: BMD [...] including images and graphs, is available in SazzeEADS. In the absence of other causes of [...] Bone Mineral Density (BMD) analysis performed on JammitXA with serialnumber [id number]. FINDINGS: Left Hip: Femur Neck: BMD = [...] report, including images and graphs,is available in GroupV[employer]. In the absence of other causes of [...] Olivia Arreguin M.D. LAB URINE ALEXANDER OLSEN [facility] [address] [place] [address], [facility] DTL [facility] Laboratories-[employer] [facility] [address] [place] [address] * Microscopic Automated (06/12/2023 12:31 PM CDT) [...] LAB URINE ALEXANDER OLSEN Performing Organization Address City/[facility]/ZIP Co de Phone Number [facility] [address] [place] [address] * pH, Urine (06/12/2023 12:31 PM CDT) pH, U 5.8 4.5 - 8.0 06/12/2023 1:4 8 PM CDT DTL Urine 06/12/2023 12:3 1 PM CDT 06/12/2023 12:53 PM CDT Olivia Arreguin M.D. LAB URINE ALEXANDER OLSEN Performing Organization Address City/[facility]/ZIP Co de Phone Number [facility] [address] [place] [address] * Protein/Creatinine Ratio, Random, Urine (06/12/2023 12:31 PM CDT) Protein, Total, Random, U 17 mg/dL 06/12/2023 1:43 PM CDT DTL Creatinine, Random, U 259 16 - 326 mg/dL 06/12/2023 1:43 PM CDT DTL Protein/Creatin ine Ratio 0.07 <0.18 mg/mg 06/12/2023 1:43 PM CDT DTL Urine (Urine, Midstream) 06/12/2023 12:31 PM CDT 06/12/2023 12:53 PM CDT Olivia Arreguin M.D. LAB URINE ALEXANDER OLSEN [facility] [address] 200 [place] [address] * Osmolality, Urine (06/12/2023 12:31 PM CDT) Osmolality, U 804 150 - 1150 mOsm/kg 06/12/2023 1:48 PM CDT DTL Urine 06/12/2023 12:3 1 PM CDT 06/12/2023 12:53 PM CDT Olivia Arreguin M.D. LAB URINE AYANAE RAÚL Performing Organization Address City/[facility]/ZIP Co de Phone Number [facility] [address] [place] [address], [facility] 200 [place] [address] * Calcium/Creatinine Ratio, Random, Urine (06/12/2023 12:31 [...] Olivia Arreguin M.D. LAB URINE AYANAE RAÚL [facility] [address] [place] [address], [place] [facility] [address] [place] [address] * Urinalysis, with Microscopic: Urine, Midstream (06/12/2023 [...] Olivia Arreguin M.D. LAB URINE ORDE RABLES [facility] [address] [place] [address], [facility] 200 [place] [address] * HBc Total Ab, Serum (06/12/2023 12:28 PM CDT) Pathologist [facility] HBc Total Ab, S Negative Negative 06/12/2023 8:08 PM CDT [facility] Blood (Blood, Venous) 06/12/2023 12:28 PM CDT 06/12/2023 4:50 PM CDT Olivia Arreguin M.D. LAB MICROBIOLO GY - BLOOD ORDERABLES [facility] [address] [place] [address] [facility] [address] [place] [address] * HBs Antibody, Serum (06/12/2023 12:28 PM CDT) [facility] HBs Antibody, S Negative 06/12/2023 8:08 PM CDT [facility] Comment: Patient is presumed to be not immune to infection with HBV. ----REFERENCE VALUE---- Unvaccinated: Negative Vaccinated: Positive HBs Antibody, Quantitative, S <5.0 mIU/mL 06/12/2023 8:08 PM CDT [facility] Comment: ----REFERENCE VALUE---- Unvaccinated: <5.0 Vaccinated: >=12.0 Blood (Blood, Venous) 06/12/2023 12:28 PM CDT 06/12/2023 4:50 PM CDT Olivia Arreguin M.D. LAB MICROBIOLO GY - BLOOD ORDERABLES Performing Organization Address City/[facility]/ZIP Co de Phone Number [facility] [address] [place] [address] [facility] [address] [place] [address] * (ABNORMAL) CRP (C-Reactive Protein) (06/12/2023 12:28 PM CDT) [facility] C-Reactive Protein (CRP), S 5.2(H) <5.0 mg/L 06/12/2023 1:27 PM CDT DT Blood (Blood, Venous) 06/12/2023 12:28 PM CDT 06/12/2023 1:04 PM CDT Olivia Arreguin M.D. LAB BLOOD ADD- ON [facility] [address] [place] [address], [place] [facility] [address] [place] [address] * (ABNORMAL) Comprehensive Metabolic Panel (06/12/2023 12:28 PM CDT) [facility] Potassium, S 4.2 3.6 - 5.2 [...] LAB BLOOD ADD- ON Performing Organization Address City/[facility]/ZIP Co de Phone Number [facility] [address] [place] [address], [facility] [address] [place] [address] * HCV Ab w/Reflex to HCV PCR, Serum (06/12/2023 12:27 PM CDT) Pathologist [facility] HCV Ab, S Negative Negative 06/14/2023 10:56 AM CDT [facility] Comment: Consumption of high-dose biotin supplement within 12 hours of blood collection for this test can cause false-negative results. Blood (Blood, Venous) 06/12/2023 12:27 PM CDT 06/12/2023 4:50 PM CDT Olivia Arreguin M.D. LAB MICROBIOLO GY - BLOOD ORDERABLES Performing Organization Address [facility] Co de Phone Number [facility] [address] [place] [address] [facility] [address] [place] [address] * 1,25-Dihydroxyvitamin D (06/12/2023 12:27 PM CDT) [facility] 1, 25 DIHYDROXYVITAMIN D, S 41 18 - 78 pg/mL 06/14/2023 2:01 PM CDT [facility] Comment: ----ADDITIONAL INFORMATION---- This test was developed and its performance characteristics determined by [facility] in a manner consistent with CLIA requirements. This test has not been cleared or approved by the U.S. Food and Drug Administration. Blood (Blood, Venous) 06/12/2023 12:27 PM CDT 06/13/2023 7:43 AM CDT Olivia Arreguin M.D. LAB BLOOD ADD- ON Performing Organization Address City/[facility]/ZIP Co de Phone Number [facility] [address] [place] [address] [place] [address] [place] [address] * (ABNORMAL) 25-Hydroxyvitamin D2 and D3 (06/12/2023 12:27 PM CDT) Pathologist [facility] 25-Hydroxy D2 <4.0 ng/mL 06/17/2023 1:31 PM CDT [facility] 25-Hydroxy D3 16 ng/mL 06/17/2023 1:31 PM CDT [facility] 25-Hydroxy D Total 16(L) ng/mL 2023 1:31 PM CDT [facility] Comment: Interpretation: 10-19 ng/mL (mild to moderate deficiency) ----REFERENCE VALUE---- 25-HYDROXY D TOTAL (D2+D3) Optimum levels in the healthy population are 20-50, patients with bone disease may benefit from higher levels within this range. ----ADDITIONAL INFORMATION---- This test was developed and its performance characteristics determined by [facility] in a manner consistent with CLIA requirements. This test has not been cleared or approved by the U.S. Food and Drug Administration. Blood (Blood, Venous) 06/12/2023 12:27 PM CDT 06/13/2023 7:17 AM CDT Olivia Arreguin M.D. LAB BLOOD ADD- ON Performing Organization Address City/[facility]/ZIP Co de Phone Number [facility] [address] [place] [address] [facility] [address] [place] [address] [place] [address] * Hepatitis B Surface Antigen (06/12/2023 12:27 PM CDT) [facility] HBs Antigen, S Negative Negative 06/14/2023 10:56 AM CDT [facility] Blood (Blood, Venous) 06/12/2023 12:27 PM CDT 06/12/2023 4:50 PM CDT Olivia Arreguin M.D. LAB MICROBIOLO GY - BLOOD ORDERABLES [facility] [address] [place] [address] [facility] [address] [place] [address] * Sedimentation Rate (06/12/2023 12:27 PM CDT) [facility] Sedimentation Rate, B 16 2 - 22 mm/h 06/12/2023 1:57 PM CDT DTL Blood (Blood, Venous) 06/12/2023 12:27 PM CDT 06/12/2023 12:51 PM CDT Olivia Arreguin M.D. LAB BLOOD ADD- ON [facility] [address] [place] [address], [facility] [address] [place] [address] * (ABNORMAL) CBC with Differential, Blood (06/12/2023 12:27 PM CDT) [facility] Hemoglobin 13.4 11.6 - 15.0 g/dL [...] LAB BLOOD ADD- ON Performing Organization Address City/[facility]/ZIP Co de Phone Number [facility] [address] [place], [place] [phone] [place] [address] [facility] 200 [place], [place] [phone] [place] [address] 200 [place] [address] * GGT (Gamma-Glutamyltransferase) (06/12/2023 12:22 PM CDT) Gamma Glutamyltransferase (GGT), S 10 5 - 36 U/L 06/12/2023 6:19 PM CDT DTL Blood (Blood, Venous) 06/12/2023 12:22 PM CDT 06/12/2023 5:18 PM CDT Olivia Arreguin M.D. LAB BLOOD ADD- ON [facility] 200 [place], [place] [phone] [place] [address] [facility] 200 [place] [address] * (ABNORMAL) Lipid Panel (04/04/2023 8:00 AM ANTIQUE CLOCK REPAIRER) Triglycerides 144 mg/dL 04/04/2023 9:16 AM ANTIQUE CLOCK REPAIRER DTL Comment: ----REFERENCE VALUE---- Normal: <150 mg/dL Borderline High: 150-199 mg/dL High: 200-499 mg/dL Very High: > or =500 mg/dL Cholesterol, Total 180 mg/dL 2023 9:16 AM ANTIQUE CLOCK REPAIRER DTL Comment: ----REFERENCE VALUE---- Desirable: < 200 mg/dL Borderline High: 200 - 239 mg/dL High: > or = 240 mg/dL Cholesterol, LDL, Calculated 107 mg/dL 04/04/2023 9:16 AM ANTIQUE CLOCK REPAIRER DTL Comment: ----REFERENCE VALUE---- Desirable: <100 mg/dL Above Desirable: 100-129 mg/dL Borderline High: 130-159 mg/dL High: 160-189 mg/dL Very High: >=190 mg/dL ----ADDITIONAL INFORMATION---- LDL cholesterol calculated using the Gardner/NIH equation. Cholesterol, HDL, S 48(L) >=50 mg/dL 04/04/2023 9:16 AM ANTIQUE CLOCK REPAIRER DTL Cholesterol, Non-HDL, Calculated 132 mg/dL 04/04/2023 9:16 AM ANTIQUE CLOCK REPAIRER DTL Comment: ----REFERENCE VALUE---- Desirable: <130 mg/dL Above Desirable: 130-159 mg/dL Borderline High: 160-189 mg/dL High: 190-219 mg/dL Very High: > or =220 mg/dL Fasting (8 HR or more) No 04/04/2023 8:41 AM ANTIQUE CLOCK REPAIRER DTL Blood (Blood, Venous) 04/04/2023 8:00 AM ANTIQUE CLOCK REPAIRER 04/04/2023 8:41 AM ANTIQUE CLOCK REPAIRER Neisha Nolan APRN C.N.P., M.S.N. LAB B LOOD ADD-ON [facility] [address] [place] [address], [facility] [address] [place] [address] from Last 3 Months or Most Recently Relevant to Health Maintenance Additional Health Concerns Infection Onset Date Last Indicated Protective Environment 07/31/2023 4
--- OUTSIDE RECORDS SUMMARY | 2023-08-06 20:59 | XMS_ITS | Encounter Summary ---
Author Organization [facility] Address [address] [place] [address] Care Team Providers Care Engineer Name Role Phone Unavailable Primary Care Provider Unavailabl e Reason for Visit * Reason Onset Date Comments OSM - Outside Materials 08/01/2023 Encounter Details Date Type Department Care Team (Latest Contact Info) Description 08/01/2023 Clinical Communication Department of Cardiovascular Medicine in [place], [place] [address] [place] [address] Dynamometer Tester EngineZain M.D. [employer] - Outside Materials Social History Tobacco Use Types Packs/Day Years Used Date Smoking Tobacco: Former Cigarettes 0.5 10 0 02/25/1994 - 02/26/2004 Passive Smoke Exposure: Past Smokeless Tobacco: Never Alcohol Use Standard Drinks/Week Comments Yes 2 (1 standard drink = 0.6 oz pur e alcohol) [facility] Utilities Answer Date Recorded In the past 12 months has [facility] [employer], gas, oil, or water [employer] threatened to shut off services in your [...] any clubs o r organizations such as quaker groups, unions, fraternal or athletic groups, or [...] and heating? Not hard at all 11/22/2021 [facility] - Occupational Stress Questionnaire Answer [...] your living situation today? I have a [facility] place to live 03/30/2023 Education Answer Date Recorded What is the highest level of school you have completed or the highest degree you have received? Master's degree (e.g., MA, MS, Arti, MEd, CUSTOMER SUPPORT COORDINATOR, GALA) 11/22/2021 Sex and Gender Information Value Date Recorded Sex Assigned at Female 11/22/2021 11:24 PM CDT Gender Identity Female 11/22/2021 11:24 PM CDT Sexual Orientation Lesbian or Alonso 11/22/2021 11 :24 PM CDT documented as of this encounter Plan of Treatment Upcoming Encounters Date Type Department Care Team (Latest Contact Info) Description 08/16/2023 8:15 AM CDT Clinical Communication Virtual Review in [place], [place] [address] [place] [address] 08/20/2023 8:40 AM CDT Appointment Department of Cardiovascular Diseases in [place], [place] [address] [place] [phone] Neisha Nolan APRN, C.N.P., M.S.N. 08/20/2023 9:10 AM CDT Appointment Department of Laboratory Medicine and Pathology, [facility], in [place], [place] [address] [place] [phone] Neisha Nolan APRN, C.N.P., M.S.N. 08/20/2023 10:45 AM CDT Appointment Department of Cardiovascular Diseases in [place], [place] [address] [place] [address] Rajat Pizarro I., Flores.B.B.S. [address] [place] [phone] 08/20/2023 1:15 PM CDT Appointment Department of Radiology, [facility], in [place], [place] [address] [place] [phone] Neisha Nolan APRN, C.N.P., M.S.N. 08/21/2023 9:00 AM CDT Office Visit Department of Cardiovascular Medicine in [place], [place] [address] [place] [phone] Ghada Perdomo APRN, C.N.P., M.S.N. [address] [place] [phone] 08/21/2023 11:45 AM CDT Ancillary Procedure Department of Cardiovascular Medicine in [place], [place] [address] [place] [phone] Rajat Pizarro I., Flores.B.B.S. [address] [place] [phone] 08/21/2023 1:00 PM CDT Comprehensive Visit Department of Cardiovascular Medicine in [place], [place] [address] [place] [phone] Hamilton Babcock M.D. [address] [place] [phone] 10/21/2023 9:45 AM CDT Clinical Communication Virtual Review in [place], [place] 200 [place] [address] 10/23/2023 7:30 AM CDT Diagnostic Division of Pulmonary Medicine in [place], [place] [address] [place] [address] Rajat Pizarro M.B.B.S. [address] [place] [phone] 10/23/2023 8:40 AM CDT Appointment Department of Laboratory Medicine and Pathology, [facility] in [place], [place] [address] [place] [address] Rajat Pizarro M.B.B.S. [address] [place] [phone] 10/23/2023 9:15 AM CDT Appointment Department of Radiology, [facility] in [place], [place] [address] [place] [address] Rajat Pizarro M.B.B.S. [address] [place] [phone] 10/23/2023 10:00 AM CDT Office Visit Division of Rheumatology in [place], [place] [address] [place] [address] Rajat Pizarro M.B.B.S. [address] [place] [phone] documented as of this encounter Visit Diagnoses Not on filedocumented in this encounter Additional Health Concerns Infection Onset Date Last Indicated Resolved Time Protective Environment 07/31/2023 07/31/2023 documented as of this encounter
--- OUTSIDE RECORDS SUMMARY | 2023-08-06 21:00 | XMS_ITS | Encounter Summary ---
Author Organization [facility] Address [address] [place] [address] Care Team Providers Care Participant Administrator Name Role Phone Unavailable Primary Care Provider Unavailabl e Reason for Visit * Reason Onset Date Comments Pre-visit Intake 06/11/2023 INDIRA done 06/10 E EF Encounter Details Date Type Department Care Team (Latest Contact Info) Description 06/11/2023 9:00 AM CDT Clinical Communication Virtual Review in [place], [place] 200 [place] [address] Pre-visit Intake (INDIRA done 06/10 EEF) Social History Tobacco Use Types Packs/Day Years Used Date Smoking Tobacco: Former Cigarettes 0.5 10 0 02/25/1994 - 02/26/2004 Passive Smoke Exposure: Past Smokeless Tobacco: Never Tobacco Cessation:Counseling Given: Not Answered Alcohol Use Standard Drinks/Week Comments Yes 2 (1 standard drink = 0.6 oz pur e alcohol) [facility] Utilities Answer Date Recorded In the past 12 months has [facility] [employer], gas, oil, or water [employer] threatened to shut off services in your [...] How often do you attend chur or moravian services? More than 4 times per year 11/22/2021 Do you belong to any clubs o r organizations such as yarsanism groups, unions, fraternal or athletic groups, or [...] and heating? Not hard at all 11/22/2021 [facility] of Occupat ionil Health - Occupational Stress Questionnaire Answer Date [...] your living situation today? I have a [facility] place to live 03/30/2023 Education Answer Date Recorded What is the highest level of school you have completed or the highest degree you have received? Master's degree (e.g., MA, MS, Arti, MEd, CRTT, GALA) 11/22/2021 Sex and Gender Information Value Date Recorded Sex Assigned at Female 11/22/2021 11:24 PM CDT Gender Identity Female 11/22/2021 11:24 PM CDT Sexual Orientation Lesbian or Alonso 11/22/2021 11 :24 PM CDT documented as of this encounter Plan of Treatment Upcoming Encounters Date Type Department Care Team (Latest Contact Info) Description 08/16/2023 8:15 AM CDT Clinical Communication Virtual Review in [place], [place] [address] [place] [address] 08/20/2023 8:40 AM CDT Appointment Department of Cardiovascular Diseases in [place], [place] [address] [place] [phone] Neisha Nolan, JESSIKA, C.N.P., M.S.N. 08/20/2023 9:10 AM CDT Appointment Department of Laboratory Medicine and Pathology, [facility], in [place], [place] [address] [place] [phone] Neisha Nolan APRN, C.N.P., M.S.N. 08/20/2023 10:45 AM CDT Appointment Department of Cardiovascular Diseases in [place], [place] [address] [place] [address] Rajat Pizarro M.Mehnaz.B.S. [address] [place] [phone] 08/20/2023 1:15 PM CDT Appointment Department of Radiology, [facility], in [place], [place] [address] [place] [phone] Neisha Nolan APRN, C.N.P., M.S.N. 08/21/2023 9:00 AM CDT Office Visit Department of Cardiovascular Medicine in [place], [place] [address] [place] [phone] Ghada Perdomo APRN, C.N.P., M.S.N. [address] [place] [phone] 08/21/2023 11:45 AM CDT Ancillary Procedure Department of Cardiovascular Medicine in [place], [place] [address] [place] [phone] Rajat Pizarro M.eMhnaz.B.S. [address] [place] [phone] 08/21/2023 1:00 PM CDT Comprehensive Visit Department of Cardiovascular Medicine in [place], [place] [address] [place] [phone] Hamilton Babcock M.D. [address] [place] [phone] 10/21/2023 9:45 AM CDT Clinical Communication Virtual Review in [place], [place] 200 [place] [address] 10/23/2023 7:30 AM CDT Diagnostic Division of Pulmonary Medicine in [place], [place] [address] [place] [phone] Rajat Pizarro M.B.B.S. [address] [place] [phone] 10/23/2023 8:40 AM CDT Appointment Department of Laboratory Medicine and Pathology, [facility] in [place], [place] [address] [place] [phone] Rajat Pizarro M.B.B.S. [address] [place] [phone] 10/23/2023 9:15 AM CDT Appointment Department of Radiology, [facility] in [place], [place] [address] [place] [phone] Rajat Pizarro M.B.B.S. [address] [place] [phone] 10/23/2023 10:00 AM CDT Office Visit Division of Rheumatology in [place], [place] [address] [place] [phone] Rajat Pizarro M.B.B.S. [address] [place] [phone] documented as of this encounter Visit Diagnoses Not on filedocumented in this encounter
--- OUTSIDE RECORDS SUMMARY | 2023-08-06 21:00 | XMS_ITS | Encounter Summary ---
Author Organization [facility] Address [address] [place] [address] Care Team Providers Care Demurrage Man Name Role Phone Unavailable Primary Care Provider Unavailabl e Encounter Details Date Type Department Care Team ([facility] st Contact Info) Description 06/21/2023 Documentation Division of Rheumatology in [place], [place] [address] [place] [phone] Rajat Pizarro M.B.B.S. [address] [place] [address] Social History Tobacco Use Types Packs/Day Years Used Date Smoking Tobacco: Former Cigarettes 0.5 10 0 02/25/1994 - 02/26/2004 Passive Smoke Exposure: Past Smokeless Tobacco: Never Alcohol Use Standard Drinks/Week Comments Yes 2 (1 standard drink = 0.6 oz pur e alcohol) [facility] Utilities Answer Date Recorded In the past 12 months has [facility] [employer], gas, oil, or water [employer] threatened to shut off services in your [...] How often do you attend chur or mosque services? More than 4 times [...] and heating? Not hard at all 11/22/2021 [facility] of Occupat ionhi Health - Occupational Stress Questionnaire Answer Date [...] your living situation today? I have a [facility] place to live 03/30/2023 Education Answer Date Recorded What is the highest level of school you have completed or the highest degree you have received? Master's degree (e.g., MA, MS, Arti, MEd, PATTERNMAKER HELPER, GALA) 11/22/2021 Sex and Gender Information Value [...] strength while taking prednisone and for osteopenia): 2356-3856 mg total daily, calcium citrate preferred; buy [...] follow-up in the Division of Rheumatology at [facility]. Next appointment in 6 months along with cardiology sarcoidosis clinic Rheumatology-related medications: Prescriptions, laboratory monitoring, and refills will be managedby the Division of Rheumatology at [facility]. Disease flares or relapse: Division of Rheumatology flare management protocols will be implemented. Rajat SHIRLEY Rheumatology documented in this encounter Plan of Treatment Upcoming Encounters Date Type Department Care Team (Latest Contact Info) Description 08/16/2023 8:15 AM CDT Clinical Communication Virtual Review in [place], [place] 200 [place] [address] 08/20/2023 8:40 AM CDT Appointment Department of Cardiovascular Diseases in [place], [place] [address] [place] [phone] Neisha Nolan APRN, C.N.P., M.S.N. 08/20/2023 9:10 AM CDT Appointment Department of Laboratory Medicine and Pathology, [facility] in [place], [place] [address] [place] [phone] Neisha Nolan APRN, C.N.P., M.S.N. 08/20/2023 10:45 AM CDT Appointment Department of Cardiovascular Diseases in [place], [place] [address] [place] [address] Rajat Pizarro M.Mehnaz.B.S. [address] [place] [phone] 08/20/2023 1:15 PM CDT Appointment Department of Radiology, [facility], in [place], [place] [address] [place] [phone] Neisha Nolan APRN, C.N.P., M.S.N. 08/21/2023 9:00 AM CDT Office Visit Department of Cardiovascular Medicine in [place], [place] [address] [place] [phone] Ghada Perdomo APRN, C.N.P., M.S.N. [address] [place] [phone] 08/21/2023 11:45 AM CDT Ancillary Procedure Department of Cardiovascular Medicine in [place], [place] [address] [place] [phone] Rajat Pizarro M.B.B.S. [address] [place] [phone] 08/21/2023 1:00 PM CDT Comprehensive Visit Department of Cardiovascular Medicine in [place], [place] [address] [place] [phone] Hamilton Babcock M.D. [address] [place] [phone] 10/21/2023 9:45 AM CDT Clinical Communication Virtual Review in [place], [place] 200 [place] [address] 10/23/2023 7:30 AM CDT Diagnostic Division of Pulmonary Medicine in [place], [place] [address] [place] [phone] Rajat Pizarro M.B.B.S. [address] [place] [phone] 10/23/2023 8:40 AM CDT Appointment Department of Laboratory Medicine and Pathology, [facility] in [place], [place] [address] [place] [phone] Rajat Pizarro M.B.B.S. [address] [place] [phone] 10/23/2023 9:15 AM CDT Appointment Department of Radiology, [facility], in [place], [place] [address] [place] [phone] Rajat Pizarro M.B.B.S. [address] [place] [address] 10/23/2023 10:00 AM CDT Office Visit Division of Rheumatology in [place], [place] [address] [place] [address] Rajat Pizarro M.B.B.S. [address] [place] [phone] documented as of this encounter Visit Diagnoses Diagnosis Sarcoidosis- Primary Monitoring For Therapeutic Drug Therapy Osteopenia documented in this encounter
--- OUTSIDE RECORDS SUMMARY | 2023-08-06 21:00 | XMS_ITS | Encounter Summary ---
Author Organization [facility] Address [address] [place] [address] Care Team Providers Care Community Services Coordinator Name Role Phone Unavailable Primary Care Provider Unavailabl e Encounter Details Date Type Department Care Team ([facility] st Contact Info) Description 05/07/2023 Orders Only Division of Gastroenterology in [place], [place] [address] [place] [phone] Emeterio Friedman M.D. [address] [place] [address] Genetic Susceptibility To Disease Social History Tobacco Use Types Packs/Day Years Used Date Smoking Tobacco: Former Cigarettes 0.5 10 0 02/25/1994 - 02/26/2004 Smokeless Tobacco: Never Alcohol Use Standard Drinks/Week Comments Yes 2 (1 standard drink = 0.6 oz pur e alcohol) [facility] Utilities Answer Date Recorded In the past 12 months has [facility] [employer], gas, oil, or water [employer] threatened to shut off services in your [...] 11/22/2021 How often do you attend [facility] or protestant services? More than 4 times per year 11/22/2021 Do you belong to any clubs o r organizations such as latter-day groups, unions, fraternal or athletic groups, or [...] and heating? Not hard at all 11/22/2021 [facility] of Occupat ional Health - Occupational [...] your living situation today? I have a [facility] place to live 03/30/2023 Education Answer Date Recorded What is the highest level of school you have completed or the highest degree you have received? Master's degree (e.g., MA, MS, Arti, MEd, CORN CROP SUPERVISOR, GALA) 11/22/2021 Sex and Gender Information Value Date Recorded Sex Assigned at Female 11/22/2021 11:24 PM CDT Gender Identity Female 11/22/2021 11:24 PM CDT Sexual Orientation Lesbian or Alonso 11/22/2021 11 :24 PM CDT documented as of this encounter Plan of Treatment Upcoming Encounters Date Type Department Care Team (Latest Contact Info) Description 08/16/2023 8:15 AM CDT Clinical Communication Virtual Review in [place], [place] [address] [place] [address] 08/20/2023 8:40 AM CDT Appointment Department of Cardiovascular Diseases in [address] [phone] Neisha Nolan, JESSIKA, C.N.P., M.S.N. 08/20/2023 9:10 AM CDT Appointment Department of Laboratory Medicine and Pathology, [facility] in [place], [place] [address] [place] [phone] Neisha Nolan APRN, C.N.P., M.S.N. 08/20/2023 10:45 AM CDT Appointment Department of Cardiovascular Diseases in [place], [place] [address] [place] [address] Rajat Pizarro M.B.B.S. [address] [place] [phone] 08/20/2023 1:15 PM CDT Appointment Department of Radiology, [facility] in [place], [place] [address] [place] [phone] Neisha Nloan APRN, C.N.P., M.S.N. 08/21/2023 9:00 AM CDT Office Visit Department of Cardiovascular Medicine in [place], [place] [address] [place] [phone] Ghada Perdomo APRN, C.N.P., M.S.N. [address] [place] [phone] 08/21/2023 11:45 AM CDT Ancillary Procedure Department of Cardiovascular Medicine in [place], [place] [address] [place] [phone] Rajat Pizarro M.Mehnaz.B.S. [address] [place] [phone] 08/21/2023 1:00 PM CDT Comprehensive Visit Department of Cardiovascular Medicine in [place], [place] [address] [place] [phone] Hamilton Babcock M.D. [address] [place] [phone] 10/21/2023 9:45 AM CDT Clinical Communication Virtual Review in [place], [place] 200 [place] [address] 10/23/2023 7:30 AM CDT Diagnostic Division of Pulmonary Medicine in [place], [place] [address] [place] [phone] Rajat Pizarro M.B.B.S. [address] [place] [phone] 10/23/2023 8:40 AM CDT App[facility]ment [facility] [place], [place] [address] [place] [phone] Rajat Pizarro M.B.B.S. [address] [place] [phone] 10/23/2023 9:15 AM CDT [facility] [place], [place] [address] [place] [phone] Rajat Pizarro M.B.B.S. [address] [place] [phone] 10/23/2023 10:00 AM CDT Office Visit Division of Rheumatology in [address] [phone] Rajat Pizarro M.B.B.S. [address] [place] [phone] documented as of this encounter Procedures Procedure Name Priority Date/Time Associated Diagnosis Comments EXT TAPESTRY Routine 02/05/2022 12:00 AM MANAGER FIBER Genetic Susceptibility To Disease documented in this encounter Results * EXT Tapestry (02/05/2022 12:00 AM MANAGER FIBER) Gene Studied BRCA1,BRCA2,MLH1,MSH 2, MSH6,PMS2,EPCAM,APOB,L DLR,LDLRAP1,PCSK9 03/12/2022 12:00 AM [facility] Genetic Disease Assessed Evaluation of 11 genes associated with Hereditary Breast and Ovarian Cancer, Eric Syndrome and Familial Hypercholesterolemia. 03/12/2022 12:00 AM MANAGER FIBER CHARANJIT Genetic Analysis Overall Interpretation Negative results through Tapestry do not replace diagnostic testing for patients with a personal or family history of cancer/hypercholestero lemia due to limitations with methodology. Consider a referral to a genetic counselor for diagnostic testing if warranted. 03/12/2022 12:00 AM [facility] Genetic Analysis Report See Tapestry PDF Report [...] enriched using a custom set of reagents (Lazarus Effect+ chemistry). Targeted regions were sequenced using an Illumina DNA sequencing system. Your sequence was matched to a modified version of the rozel standard reference genome (GRCh38). Variant calling was completed using a customized version of [employer]'s [employer] software, requiring 20x coverage for validated variant calls. Copy Number Variants (CNVs) were called using a proprietary bioinformatics pipeline that compared the coverage profile of your sample with the coverage profiles of other reference set samples. [facility] [employer] then analyzed the generated variant data for the exons and 10 bp of flanking intronic sequence (and select tagged intronic variants) of the 11 genes included in Intense from the [employer] Database. Your sample was reviewed for single [...] assessments and medical management. 03/12/2022 12:00 AM MANAGER FIBER CHARANJIT Human Reference Sequence Assembly [id number] 03/12/2022 12:00 AM [facility] CHARANJIT Saliva (Mouth) 02/05/2022 Emeterio Friedman M.D. LAB GENETI C TESTING HELIX [employer] [id number] [facility], [address] [place] [address], [facility] CHARANJIT [employer] [id number] [facility], [address]. [place] [address] documented in this encounter Visit Diagnoses Diagnosis Genetic Susceptibility To Disease documented in this encounter
--- OUTSIDE RECORDS SUMMARY | 2023-08-06 21:00 | XMS_ITS | Encounter Summary ---
Author Organization [facility] Address [address] [place] [address] Care Team Providers Care Insurance Claims Analyst Name Role Phone Unavailable Primary Care Provider Unavailabl e Encounter Details Date Type Department Care Team (Latest Contact Info) Description 06/12/2023 12:00 PM CDT Hospital Encounter Department of Laboratory Medicine and Pathology, [facility], in [place], [place] [address] [place] [address] Olivia Arreguin M.D. [address] [place] [address] Sarcoidosis; Immunodeficiency Due To Drugs (HCC) Discharge Disposition: Home or Self Care Social History Tobacco Use Types Packs/Day Years Used Date Smoking Tobacco: Former Cigarettes 0.5 10 0 02/25/1994 - 02/26/2004 Passive Smoke Exposure: Past Smokeless Tobacco: Never Alcohol Use Standard Drinks/Week Comments Yes 2 (1 standard drink = 0.6 oz pur e alcohol) [facility] Utilities Answer Date Recorded In the past 12 months has e [employer] gas, oil, or water [employer] threatened to shut off services in your [...] any clubs o r organizations such as mandaen groups, unions, fraternal or athletic groups, or [...] and heating? Not hard at all 11/22/2021 [facility] - [...] your living situation today? I have a [facility] place to live 03/30/2023 Education Answer Date Recorded What is the highest level of school you have completed or the highest degree you have received? Master's degree (e.g., MA, MS, Arti, MEd, TEACHER, GALA) 11/22/2021 Sex and Gender Information [...] CDT Clinical Communication Virtual Review in [place], [place] [address] [place] [address] 08/20/2023 8:40 AM CDT Appointment Department of Cardiovascular Diseases in [place], [place] [address] [place] [phone] Neisha Nolan APRN, C.N.P., M.S.N. 08/20/2023 9:10 AM CDT Appointment Department of Laboratory Medicine and Pathology, [facility] in [place], [place] [address] [place] [phone] Neisha Nolan APRN, C.N.P., M.S.N. 08/20/2023 10:45 AM CDT Appointment Department of Cardiovascular Diseases in [place], [place] [address] [place] [phone] Rajat Pizarro M.B.B.S. [address] [place] [phone] 08/20/2023 1:15 PM CDT Appointment Department of Radiology, [facility] in [place], [place] [address] [place] [phone] Neisha Nolan APRN, C.N.P., M.S.N. 08/21/2023 9:00 AM CDT Office Visit Department of Cardiovascular Medicine in [place], [place] [address] [place] [phone] Ghada Perdomo APRN, C.N.P., M.S.N. [address] [place] [phone] 08/21/2023 11:45 AM CDT Ancillary Procedure Department of Cardiovascular Medicine in [place], [place] [address] [place] [phone] Rajat Pizarro M.B.B.S. [address] [place] [phone] 08/21/2023 1:00 PM CDT Comprehensive Visit Department of Cardiovascular Medicine in [place], [place] [address] [place] [phone] Hamilton Babcock M.D. [address] [place] [phone] 10/21/2023 9:45 AM CDT Clinical Communication Virtual Review in [place], [place] 200 [place] [address] 10/23/2023 7:30 AM CDT Diagnostic Division of Pulmonary Medicine in [place], [place] [address] [place] [phone] Rajat Pizarro M.B.B.S. [address] [place] [phone] 10/23/2023 8:40 AM CDT Appointment Department of Laboratory Medicine and Pathology, [facility], in [place], [place] [address] [place] [phone] Rajat Pizarro M.B.B.S. [address] [place] [phone] 10/23/2023 9:15 AM CDT Appointment Department of Radiology, [facility], in [place], [place] [address] [place] [phone] Rajat Pizarro M.B.B.S. [address] [place] [phone] 10/23/2023 10:00 AM CDT Office Visit Division of Rheumatology in [place], [place] [address] [place] [address] Rajat Pizarro M.B.BSandieSSandie [address] [place] [address] documented as of this encounter Procedures Procedure [...] CDT Olivia Arreguin M.D. LAB URINE AYANADon RAÚL [facility] 200 [place] [address], [facility] 200 [place] [address] * pH, Urine (06/12/2023 12:31 PM CDT) pH, U 5.8 4.5 - 8.0 06/12/2023 1:4 8 PM CDT DTL Urine 06/12/2023 12:3 1 PM CDT 06/12/2023 12:53 PM CDT Olivia Arreguin M.D. LAB URINE AYANADon RAÚL Performing Organization Address City/[facility]/ZIP Co de Phone Number [facility] 200 [place], [place] [id number] [place] [address] 200 [place] [address] * Osmolality, Urine (06/12/2023 12:31 PM CDT) Osmolality, U 804 150 - 1150 mOsm/kg 06/12/2023 1:48 PM CDT DTL Urine 06/12/2023 12:3 1 PM CDT 06/12/2023 12:53 PM CDT Olivia Arreguin M.D. LAB URINE ALEXANDER OLSEN [facility] [address] [place] [address], [facility] 200 [place] [address] * Microscopic Automated (06/12/2023 12:31 PM CDT) [...] ALEXANDER OLSEN Performing Organization Address [facility] Co de Phone Number [facility] 200 [place] [address], [address] [address] * Protein/Creatinine Ratio, Random, Urine (06/12/2023 12:31 [...] ALEXANDER OLSEN Performing Organization Address [facility]/ZIP Co de Phone Number [address] [address], [address] [address] * Urinalysis, with Microscopic: Urine, Midstream (06/12/2023 [...] City/[facility]/ZIP Co de Phone Number [facility] [address] [place] [address], [facility] [address] [place] [address] * Calcium/Creatinine Ratio, Random, Urine (06/12/2023 12:31 [...] City/[facility]/ZIP Co de Phone Number [facility] [address] [place] [address], [facility] DTL Formerly named [facility] [address] [place] [address] documented in this encounter Visit Diagnoses Diagnosis 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
--- OUTSIDE RECORDS SUMMARY | 2023-08-06 21:00 | XMS_ITS | Encounter Summary ---
Author Organization [facility] Address [address] [place] [address] Care Team Providers Care Medical Device Sales Name Role Phone Unavailable Primary Care Provider Unavailabl e Encounter Details Date Type Department Care Team ([facility] st Contact Info) Description 07/31/2023 Clinical Communication Division of Rheumatology in [place], [place] [address] [place] [phone] Rajat Pizarro M.B.B.S. [address] [place] [phone] Social History Tobacco Use Types Packs/Day Years Used Date Smoking Tobacco: Former Cigarettes 0.5 10 0 02/25/1994 - 02/26/2004 Passive Smoke Exposure: Past Smokeless Tobacco: Never Alcohol Use Standard Drinks/Week Comments Yes 2 (1 standard drink = 0.6 oz pur e alcohol) [facility] Utilities Answer Date Recorded In the past 12 months has [facility] [employer], gas, oil, or water [employer] threatened to shut off services in your [...] any clubs o r organizations such as mu-ism groups, unions, fraternal or athletic groups, or [...] your living situation today? I have a [facility] place to live 03/30/2023 Education Answer Date Recorded What is the highest level of school you have completed or the highest degree you have received? Master's degree (e.g., MA, MS, Arti, MEd, METHODS ANALYST DATA PROCESSING, GALA) 11/22/2021 Sex and Gender Information Value Date Recorded Sex Assigned at Female 11/22/2021 11:24 PM CDT Gender Identity Female 11/22/2021 11:24 PM CDT Sexual Orientation Lesbian or Alonso 11/22/2021 11 :24 PM CDT documented as of this encounter Plan of Treatment Upcoming Encounters Date Type Department Care Team (Latest Contact Info) Description 08/16/2023 8:15 AM CDT Clinical Communication Virtual Review in [place], [place] [address] [place] [address] 08/20/2023 8:40 AM CDT Appointment Department of Cardiovascular Diseases in [place], [place] [address] [place] [address] Neisha Nolan, JESSIKA, C.N.P., M.S.N. 08/20/2023 9:10 AM CDT Appointment Department of Laboratory Medicine and Pathology, [facility], in [place], [place] [address] [place] [phone] Neisha Nolan APRN, C.N.P., M.S.N. 08/20/2023 10:45 AM CDT Appointment Department of Cardiovascular Diseases in [place], [place] [address] [place] [address] Rajat Pizarro M.Mehnaz.B.S. [address] [place] [phone] 08/20/2023 1:15 PM CDT Appointment Department of Radiology, [facility], in [place], [place] [address] [place] [phone] Neisha Nolan APRN, C.N.P., M.S.N. 08/21/2023 9:00 AM CDT Office Visit Department of Cardiovascular Medicine in [place], [place] [address] [place] [phone] Ghada Perdomo APRN, C.N.P., M.S.N. [address] [place] [phone] 08/21/2023 11:45 AM CDT Ancillary Procedure Department of Cardiovascular Medicine in [place], [place] [address] [place] [phone] Rajat Pizarro M.Mehnaz.B.S. [address] [place] [phone] 08/21/2023 1:00 PM CDT Comprehensive Visit Department of Cardiovascular Medicine in [place], [place] [address] [place] [phone] Hamilton Babcock M.D. [address] [place] [phone] 10/21/2023 9:45 AM CDT Clinical Communication Virtual Review in [place], [place] [address] [place] [address] 10/23/2023 7:30 AM CDT Diagnostic Division of Pulmonary Medicine in [place], [place] [address] [place] [phone] Rajat Pizarro M.B.B.S. [address] [place] [phone] 10/23/2023 8:40 AM CDT Appointment Department of Laboratory Medicine and Pathology, [facility] in [place], [place] [address] [place] [phone] Rajat Pizarro M.B.B.S. [address] [place] [phone] 10/23/2023 9:15 AM CDT Appointment Department of Radiology, [facility] in [place], [place] [address] [place] [phone] Rajat Pizarro M.B.B.S. [address] [place] [phone] 10/23/2023 10:00 AM CDT Office Visit Division of Rheumatology in [place], [place] [address] [place] [phone] Rajat Pizarro M.BSandieB.S. [address] [place] [phone] documented as of this encounter Visit Diagnoses Not on filedocumented in this encounter Additional Health Concerns Infection Onset Date Last Indicated Resolved Time Protective Environment 07/31/2023 07/31/2023 documented as of this encounter
--- OUTSIDE RECORDS SUMMARY | 2023-08-06 21:00 | XMS_ITS | Encounter Summary ---
Author Organization [facility] Address [address] [place] [address] Care Team Providers Care Economic Consultant Name Role Phone Unavailable Primary Care Provider Unavailabl e Reason for Referral * MRI/CAT/PET Scan (Routine) - Pending Review Specialty Diagnoses / Procedures Referred By Contac t Referred To Contact Radiology Diagnoses Sarcoidosis Procedures CT Chest without IV Contrast Rajat Pizarro M.B.B.S. [address] [place] [phone] [facility] Referral ID Status Reason Start Date Expiration Date V isits Requested Visits Authorized [id number] Pending Review 06/13/2023 06/12/2024 1 1 * Outpatient (Routine) - Authorized Specialty Diagnoses / Procedures Referred By Contac t Referred To Contact Rheumatology Rajat Pizarro M.B.B.S. [address] [place] [phone] [facility] Referral ID Status Reason Start Date Expiration Date V isits Requested Visits Authorized [id number] Authorized 06/13/2023 12/12/2024 1 1 * Specialty Diagnoses / Procedures Referred By Contac t Referred To Contact Olivia Arreguin M.D. 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 [address] [place] [phone] [facility] Referral ID Status Reason Start Date Expiration Date Visits Re quested Visits Authorized [id number] Closed 06/12/2023 06/11/2024 1 1 Reason for Visit * Outpatient (Routine) - Closed Specialty Diagnoses / Procedures Referred By Martina david Referred To Contact Rheumatology Diagnoses Sarcoidosis Neisha Nolan APRN, C.N.P., M.S.N. 200 [place] [phone] [facility] Referral ID Status Reason Start Date Expiration Date Visits Re quested Visits Authorized [id number] Closed 04/05/2023 10/04/2024 1 1 Encounter Details Date Type Department Care Team (Latest Contact Info) Description 06/12/2023 10:15 AM CDT Comprehensive Visit Division of Rheumatology in [place], [place] [address] [place] [phone] Rajat Pizarro M.B.B.S. [address] [place] [phone] Sarcoidosis (Primary Dx); Corticosteroid Treatment Metal Hanging Helper Systemic; Immunodeficiency Due To Drugs (HCC); Elevated Alkaline Phosphatase Social History Tobacco Use Types Packs/Day Years Used Date Smoking Tobacco: Former Cigarettes 0.5 10 0 02/25/1994 - 02/26/2004 Passive Smoke Exposure: Past Smokeless Tobacco: Never Alcohol Use Standard Drinks/Week Comments Yes 2 (1 standard drink = 0.6 oz pur e alcohol) [facility] Utilities Answer Date Recorded In the past 12 months has e [employer], gas, oil, or water company threatened to [...] any clubs o r organizations such as judaism groups, unions, fraternal or [...] your living situation today? I have a [facility] place to live 03/30/2023 Education Answer Date Recorded What is the highest level of school you have completed or the highest degree you have received? Master's degree (e.g., MA, MS, Arti, MEd, BRAID PATTERN SETTER, GALA) 11/22/2021 Sex and Gender Information Value Date Recorded Sex Assigned at Female 11/22/2021 11:24 PM CDT Gender Identity Female 11/22/2021 11:24 PM CDT Sexual Orientation Lesbian or Alonso 11/22/2021 11 :24 PM CDT documented as of this encounter Patient Instructions * Patient Instructions* Olivia Arreguin M.D. - 06/12/2023 10:15 AM CDT Fabricating Machine Operator- yearly, fax records to us Methotrexate Dr. [...] 2021 for frequent PVCs by a local manager banking. She was not noted to have structural heart disease with just mild mitral regurgitation with mild mitral valve prolapse of the posterior leaflet. She established with a manager banking in [place] in early 2021 after moving to [place]. A Holter demonstrated 19.3% PVC burden, some [...] not noticed wheezing. The Dulera that her tin flopper prescribed has been helpful. She has not [...] her labs are acceptable. She met w [facility] today to review subcutaneous methotrexate administration. [...] follow-up in the Division of Rheumatology at [facility] with Dr. Pizarro. Next appointment in 6 months. Rheumatology-related medications: Prescriptions, laboratory monitoring, and refills will be managedby the Division of Rheumatology at [facility]. Disease flares or relapse: Division of Rheumatology flare management protocols will be implemented. Patient seen and staffed with * Rajat Pizarro M.B.B.S. - 06/12/2023 10:15 AM CDT Rheumatology Sarcoidosis Supervisory Note I reviewed the case with the fellow and I saw the patient. I agree with the assessment and plan as documented in the note by Dr. Olivia Arreguin, Rheumatology Fellow This patient is a 58 yo female from [facility] who has seen Dr Ricky kwan in [...] lupus pernio Treatment Prednisone burst and taper ([id number]) Cellcept Has been off treatment for 6 [...] Nurse education for methotrexate Uveitis screen by licensed club manager locally, reports to be faxed to us [...] and methotrexate Rest per Dr. Rodríguez SHIRLEY High Lift Driver Rheumatology documented in this encounter Plan of Treatment Upcoming Encounters Date Type Department Care Team (Latest Contact Info) Description 08/16/2023 8:15 AM CDT Clinical Communication Virtual Review in [place], [place] [address] [place] [phone] 08/20/2023 8:40 AM CDT Appointment Department of Cardiovascular Diseases in [place], [place] [address] [place] [phone] Neisha Nolan APRN, C.N.P., M.S.N. 08/20/2023 9:10 AM CDT Appointment Department of Laboratory Medicine and Pathology, [facility] in [place], [place] [address] [place] [phone] Neisha Nolan APRN, C.N.P., M.S.N. 08/20/2023 10:45 AM CDT Appointment Department of Cardiovascular Diseases in [place], [place] [address] [place] [address] Rajat Pizarro I., M.B.B.S. [address] [place] [phone] 08/20/2023 1:15 PM CDT Appointment Department of Radiology, [facility] in [place], [place] [address] [place] [phone] Neisha Nolan APRN, C.N.P., M.S.N. 08/21/2023 9:00 AM CDT Office Visit Department of Cardiovascular Medicine in [place], [place] [address] [place] [phone] Ghada Perdomo APRN, C.N.P., M.S.N. [address] [place] [phone] 08/21/2023 11:45 AM CDT Ancillary Procedure Department of Cardiovascular Medicine in [place], [place] [address] [place] [phone] Rajat Pizarro I., M.B.B.S. [address] [place] [phone] 08/21/2023 1:00 PM CDT Comprehensive Visit Department of Cardiovascular Medicine in [place], [place] [address] [place] [phone] Hamilton Babcock M.D. [address] [place] [phone] 10/21/2023 9:45 AM CDT Clinical Communication Virtual Review in [place], [place] 200 [place] [phone] 10/23/2023 7:30 AM CDT Diagnostic Division of Pulmonary Medicine in [place], [place] [address] [place] [phone] Rajat Pizarro M.B.B.S. [address] [place] [phone] 10/23/2023 8:40 AM CDT Appointment Department of Laboratory Medicine and Pathology, [facility] in [address] [phone] Rajat Pizarro M.B.B.S. [address] [place] [phone] 10/23/2023 9:15 AM CDT Appointment Department of Radiology, [facility], in [address] [phone] Rajat Pizarro M.B.B.S. [address] [place] [phone] 10/23/2023 10:00 AM CDT Office Visit Division of Rheumatology in [address] [phone] Rajat Pizarro M.B.B.S. [address] [place] [phone] Scheduled Orders Name Type Priority Associated Diagnoses Order Schedule Sedimentation Rate Lab Routine Sarcoidosis Expected: 12/13/2023 (Approximate), Expires: 06/12/2024 CT Chest without IV Contrast Imaging RAD - Routine (most inpatients and all outpatients) Sarcoidosis Expected: 10/23/2023, Expires: 09/11/2024 Pulmonary Function Tests PFT Routine [...] Bone Mineral Density (BMD) analysis performed on SolidFire[employer] with serial number [id number]. ? FINDINGS: Left Hip: Femur Neck: BMD [...] including images and graphs, is available in [employer]. In the absence of other causes of [...] image stored in the BMD study in [employer]), the calculated ten year probability of fracture is: FRAX Risk Factors: None FRAX (10 yr probability) adjusted for TBS: Major Osteoporotic Fracture: ??4.4 % Hip Fracture: ?0.2 % ? Procedure Note Scot Carrasco M.D. - 06/12/2023 EXAM: BMD BONE DENSITY SPINE HIPS Bone Mineral Density (BMD) analysis performed on [employer] with serialnumber [id number]. FINDINGS: Left Hip: Femur Neck: BMD = [...] Right) Olivia GIBBS DXA PROCED URES * Protein/Creatinine Ratio, Random, [...] Olivia Arreguin M.D. LAB URINE ALEXANDER OLSEN [facility] [address] [place] [address], [facility] DTL [facility] 200 [place] [address] * Urinalysis, with Microscopic: Urine, Midstream (06/12/2023 [...] Olivia Arreguin M.D. LAB URINE ALEXANDER OLSEN [facility] [address] [place] [address], [facility] DTL [facility] 200 [place] [address] * Calcium/Creatinine Ratio, Random, Urine (06/12/2023 12:31 [...] LAB URINE ORDE RABLES Performing Organization Address City/[facility]/ZIP Co de Phone Number [facility] 200 [place] [address] * (ABNORMAL) CRP (C-Reactive Protein) (06/12/2023 12:28 PM CDT) Pathologist [facility] C-Reactive Protein (CRP), S 5.2(H) <5.0 mg/L 06/12/2023 1:27 PM CDT DT Blood (Blood, Venous) 06/12/2023 12:28 PM CDT 06/12/2023 1:04 PM CDT Olivia Arreguin M.D. LAB BLOOD ADD- ON [facility] 200 [place] [address], [place] [address] * HBc Total Ab, Serum (06/12/2023 12:28 PM CDT) HBc Total Ab, S Negative Negative 06/12/2023 8:08 PM CDT [facility] Blood (Blood, Venous) 06/12/2023 12:28 PM CDT 06/12/2023 4:50 PM CDT Olivia Arreguin M.D. LAB MICROBIOLO GY - BLOOD ORDERABLES Performing Organization Address [facility] Co de Phone Number [facility] [address] [address] [facility] [address] [place] [address] * HBs Antibody, Serum (06/12/2023 12:28 PM CDT) HBs Antibody, S Negative 06/12/2023 8:08 PM CDT [facility] Comment: Patient is presumed to be not immune to infection with HBV. ----REFERENCE VALUE---- Unvaccinated: Negative Vaccinated: Positive HBs Antibody, Quantitative, S <5.0 mIU/mL 06/12/2023 8:08 PM CDT [facility] Comment: ----REFERENCE VALUE---- Unvaccinated: <5.0 Vaccinated: >=12.0 Blood (Blood, Venous) 06/12/2023 12:28 PM CDT 06/12/2023 4:50 PM CDT Olivia Arreguin M.D. LAB MICROBIOLO GY - BLOOD ORDERABLES Performing Organization Address [facility] Co de Phone Number [facility] [address] [address] [facility] [address] [address] * (ABNORMAL) Comprehensive Metabolic Panel (06/12/2023 12:28 PM CDT) Potassium, S 4.2 3.6 - 5.2 mmol/L [...] M.D. LAB BLOOD ADD- ON [facility] [address] [place] [address], [place] DTL [facility] [address] [place] [address] * Sedimentation Rate (06/12/2023 12:27 PM CDT) Sedimentation Rate, B 16 2 - 22 mm/h 06/12/2023 1:57 PM CDT DT Blood (Blood, Venous) 06/12/2023 12:27 PM CDT 06/12/2023 12:51 PM CDT Olivia Arreguin M.D. LAB BLOOD ADD- ON [facility] [address] [place] [address], [facility] [address] [place] [address] * HCV Ab w/Reflex to HCV PCR, Serum (06/12/2023 12:27 PM CDT) [facility] HCV Ab, S Negative Negative 06/14/2023 10:56 AM CDT [facility] Comment: Consumption of high-dose biotin supplement within 12 hours of blood collection for this test can cause false-negative results. Blood (Blood, Venous) 06/12/2023 12:27 PM CDT 06/12/2023 4:50 PM CDT Olivia Arreguin M.D. LAB MICROBIOLO GY - BLOOD ORDERABLES Performing Organization Address [facility] Co de Phone Number [facility] [address] [address] [facility] [address] [place] [address] * Hepatitis B Surface Antigen (06/12/2023 12:27 PM CDT) Pathologist [facility] HBs Antigen, S Negative Negative 06/14/2023 10:56 AM CDT [facility] Blood (Blood, Venous) 06/12/2023 12:27 PM CDT 06/12/2023 4:50 PM CDT Olivia Arreguin M.D. LAB MICROBIOLO GY - BLOOD ORDERABLES [facility] [address] [place] [address] [facility] [address] [place] [address] * 1,25-Dihydroxyvitamin D (06/12/2023 12:27 PM CDT) [facility] 1, 25 DIHYDROXYVITAMIN D, S 41 18 - 78 pg/mL 06/14/2023 2:01 PM CDT [facility] Comment: ----ADDITIONAL INFORMATION---- This test was developed and its performance characteristics determined by [facility] in a manner consistent with CLIA requirements. This test has not been cleared or approved by the U.S. Food and Drug Administration. Blood (Blood, Venous) 06/12/2023 12:27 PM CDT 06/13/2023 7:43 AM CDT Olivia Arreguin M.D. LAB BLOOD ADD- ON [facility] [address] [place] [address] [facility] [address] [place] [address] [place] [address] * (ABNORMAL) 25-Hydroxyvitamin D2 and D3 (06/12/2023 12:27 PM CDT) [facility] 25-Hydroxy D2 <4.0 ng/mL 06/17/2023 1:31 PM CDT [facility] 25-Hydroxy D3 16 ng/mL 06/17/2023 1:31 PM CDT [facility] 25-Hydroxy D Total 16(L) ng/mL 2023 1:31 PM CDT [facility] Comment: Interpretation: 10-19 ng/mL (mild to moderate deficiency) ----REFERENCE VALUE---- 25-HYDROXY D TOTAL (D2+D3) Optimum levels in the healthy population are 20-50, patients with bone disease may benefit from higher levels within this range. ----ADDITIONAL INFORMATION---- This test was developed and its performance characteristics determined by [facility] in a manner consistent with CLIA requirements. This test has not been cleared or approved by the U.S. Food and Drug Administration. Blood (Blood, Venous) 06/12/2023 12:27 PM CDT 06/13/2023 7:17 AM CDT Olivia Arreguin M.D. LAB BLOOD ADD- ON [facility] [address] [place] [address] [facility] [address] [place] [address] [place] [address] * (ABNORMAL) CBC with Differential, Blood (06/12/2023 12:27 PM CDT) [facility] Hemoglobin 13.4 11.6 - 15.0 [...] Olivia Arreguin M.D. LAB BLOOD ADD- ON [facility] [address] [place] [address], [facility] [address] [place] [address] [facility] [address] [place] [address] * GGT (Gamma-Glutamyltransferase) (06/12/2023 12:22 PM CDT) Gamma Glutamyltransferase (GGT), S 10 5 - 36 U/L 06/12/2023 6:19 PM CDT DTL Blood (Blood, Venous) 06/12/2023 12:22 PM CDT 06/12/2023 5:18 PM CDT Olivia Arreguin M.D. 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
--- OUTSIDE RECORDS SUMMARY | 2023-08-06 21:00 | XMS_ITS | Encounter Summary ---
Author Organization [facility] Address [address] [place] [address] Care Team Providers Care Track Grinder Operator Name Role Phone Unavailable Primary Care Provider Unavailabl e Reason for Referral * Outpatient (Routine) - Authorized Specialty Diagnoses / Procedures Referred By Contac t Referred To Contact Diagnoses Sarcoidosis Procedures ECG 12 Lead Rajat Pizarro M.B.B.S. [address] [place] [phone] [facility] Referral ID Status Reason Start Date Expiration Date V isits Requested Visits Authorized [id number] Authorized 08/01/2023 07/31/2024 1 1 * Outpatient (Routine) - Authorized Specialty Diagnoses / Procedures Referred By Contact Referred To Contact Cardiovascular Diseases / Cardiovascular Disease Diagnoses Sarcoidosis Rajat Pizarro M.B.B.S. [address] [place] [phone] [facility] Referral ID Status Reason Start Date Expiration Date V isits Requested Visits Authorized [id number] Authorized 08/01/2023 01/30/2025 1 1 Encounter Details Date Type Department Care Team (Late st Contact Info) Description 08/01/2023 Orders Only Division of Rheumatology in [place], [place] [address] [place] [phone] Rajat Pizarro M.B.B.S. 200 [place] [address] Sarcoidosis (Primary Dx) Social History Tobacco Use Types Packs/Day Years Used Date Smoking Tobacco: Former Cigarettes 0.5 10 0 02/25/1994 - 02/26/2004 Passive Smoke Exposure: Past Smokeless Tobacco: Never Alcohol Use Standard Drinks/Week Comments Yes 2 (1 standard drink = 0.6 oz pur e alcohol) [facility] Utilities Answer Date Recorded In the [...] heating? Not hard at all 11/22/2021 [facility] [place] of Occupat ional Health - Occupational Stress [...] your living situation today? I have a [facility] place to live 03/30/2023 Education Answer Date Recorded What is the highest level of school you have completed or the highest degree you have received? Master's degree (e.g., MA, MS, Arti, MEd, PLASTERER STUCCO, GALA) 11/22/2021 Sex and Gender Information Value Date Recorded Sex Assigned at Female 11/22/2021 11:24 PM CDT Gender Identity Female 11/22/2021 11:24 PM CDT Sexual Orientation Lesbian or Alonso 11/22/2021 11 :24 PM CDT documented as of this encounter Plan of Treatment Upcoming Encounters Date Type Department Care Team (Latest Contact Info) Description 08/16/2023 8:15 AM CDT Clinical Communication Virtual Review in [place], [place] [address] [place] [address] 08/20/2023 8:40 AM CDT Appointment Department of Cardiovascular Diseases in [place], [place] [address] [place] [phone] Neisha Nolan APRN C.N.P., M.S.N. 08/20/2023 9:10 AM CDT Appointment Department of Laboratory Medicine and Pathology, [facility] in [place], [place] [address] [place] [phone] Neisha Nolan APRN, C.N.P., M.S.N. 08/20/2023 10:45 AM CDT Appointment Department of Cardiovascular Diseases in [place], [place] [address] [place] [phone] Rajat Pizarro M.B.B.S. [address] [place] [phone] 08/20/2023 1:15 PM CDT Appointment Department of Radiology, [facility] in [place], [place] [address] [place] [address] Neisha Nolan APRN, C.N.P., M.S.N. 08/21/2023 9:00 AM CDT Office Visit Department of Cardiovascular Medicine in [place], [place] [address] [place] [phone] Ghada Perdomo APRN, C.N.P., M.S.N. [address] [place] [phone] 08/21/2023 11:45 AM CDT Ancillary Procedure Department of Cardiovascular Medicine in [place], [place] [address] [place] [phone] Rajat Pizarro M.B.B.S. [address] [place] [phone] 08/21/2023 1:00 PM CDT Comprehensive Visit Department of Cardiovascular Medicine in [place], [place] [address] [place] [phone] Hamilton Babcock M.D. [address] [place] [phone] 10/21/2023 9:45 AM CDT Clinical Communication Virtual Review in [place], [place] [address] [place] [phone] 10/23/2023 7:30 AM CDT Diagnostic Division of Pulmonary Medicine in [place], [place] [address] [place] [phone] Rajat Pizarro M.B.B.S. [address] [place] [phone] 10/23/2023 8:40 AM CDT Appointment Department of Laboratory Medicine and Pathology, [facility], in [place], [place] [address] [place] [phone] Rajat Pizarro M.B.B.S. [address] [place] [phone] 10/23/2023 9:15 AM CDT Appointment Department of Radiology, [facility], in [place], [place] [address] [place] [address] Rajat Pizarro M.B.B.S. [address] [place] [address] 10/23/2023 10:00 AM CDT Office Visit Division of Rheumatology in [place], [place] [address] [place] [address] Rajat Pizarro M.B.B.S. [address] [place] [address] Scheduled Orders Name Type Priority Associated Diagnoses Order Schedule Basic Metabolic Panel Lab Routine Sarcoidosis Expected: 08/01/2023, Expires: 10/31/2024 Thyroid Function [place] Lab Routine Sarcoidosis Expected: 08/01/2023, Expires: 10/31/2024 ECG 12 Lead ECG Routine Sarcoidosis Expected: 08/01/2023, Expires: 10/31/2024 Cardiac Device Interrogation Implantable Cardiac Device Routine Sarcoidosis Expected: 08/01/2023, Expires: 10/31/2024 Scheduled Referrals Name Type Priority Associated Diagnoses Order Schedule Cardiovascular Disease - Heart rhythm consult (clinic) Outpatient Referral Routine Sarcoidosis Expected: 08/01/2023, Expires: 10/31/2024 documented as of this encounter Visit Diagnoses Diagnosis Sarcoidosis- Primary documented in this encounter Additional Health Concerns Infection Onset Date Last Indicated Resolved Time Protective Environment 07/31/2023 07/31/2023 documented as of this encounter
--- OUTSIDE RECORDS SUMMARY | 2023-08-06 21:00 | XMS_ITS | Encounter Summary ---
Author Organization [facility] Address [address] [place] [address] Care Team Providers Care [employer] Name Role Phone Unavailable Primary Care Provider Unavailabl e Encounter Details Date Type Department Care Team (Latest Contact Info) Description 06/12/2023 12:01 PM CDT - 06/12/2023 12:55 PM CDT Hospital Encounter Department of Laboratory Medicine and Pathology, [facility] in [place], [place] [address] [place] [phone] Olivia Arreguin M.D. [address] [place] [phone] Sarcoidosis; Immunodeficiency Due To Drugs (HCC) Discharge Disposition: Home or Self Care Social History Tobacco Use Types Packs/Day Years Used Date Smoking Tobacco: Former Cigarettes 0.5 10 0 02/25/1994 - 02/26/2004 Passive Smoke Exposure: Past Smokeless Tobacco: Never Alcohol Use Standard Drinks/Week Comments Yes 2 (1 standard drink = 0.6 oz pur e alcohol) [facility] Utilities Answer Date Recorded In the past 12 months has [facility] [employer], gas, oil, or water [employer] threatened to shut off services in your [...] How often do you attend chur or tenriism services? More than 4 times per year 11/22/2021 Do you belong to any clubs o r organizations such as jehovah's witness groups, unions, fraternal or athletic groups, or [...] and heating? Not hard at all 11/22/2021 [facility] [place] of Occupat ional Health - Occupational Stress [...] living situation today? I have a [facility] place to live 03/30/2023 Education Answer Date Recorded What is the highest level of school you have completed or the highest degree you have received? Master's degree (e.g., MA, MS, Arti, MEd, [employer], [employer]ALA) 11/22/2021 Sex and Gender Information Value [...] AM CDT Clinical Communication Virtual Review in [place], [place] [address] [place] [phone] 08/20/2023 8:40 AM CDT Appointment Department of Cardiovascular Diseases in [place], [place] [address] [place] [phone] Neisha Nolan APRN C.N.P., M.S.N. 08/20/2023 9:10 AM CDT Appointment Department of Laboratory Medicine and Pathology, [facility] in [place], [place] [address] [place] [phone] Neisha Nolan APRN, C.N.P., M.S.N. 08/20/2023 10:45 AM CDT Appointment Department of Cardiovascular Diseases in [place], [place] [address] [place] [phone] Rajat Pizarro M.B.B.S. [address] [place] [phone] 08/20/2023 1:15 PM CDT Appointment Department of Radiology, [facility] in [place], [place] [address] [place] [phone] Neisha Nolan APRN C.N.P., M.S.N. 08/21/2023 9:00 AM CDT Office Visit Department of Cardiovascular Medicine in [place], [place] [address] [place] [phone] Ghada Perdomo APRN, C.N.P., M.S.N. [address] [place] [phone] 08/21/2023 11:45 AM CDT Ancillary Procedure Department of Cardiovascular Medicine in [place], [place] [address] [place] [phone] Rajat Pizarro M.B.B.S. [address] [place] [phone] 08/21/2023 1:00 PM CDT Comprehensive Visit Department of Cardiovascular Medicine in [place], [place] [address] [place] [phone] Hamilton Babcock M.D. [address] [place] [phone] 10/21/2023 9:45 AM CDT Clinical Communication Virtual Review in [place], [place] 200 [place] [phone] 10/23/2023 7:30 AM CDT Diagnostic Division of Pulmonary Medicine in [place], [place] [address] [place] [phone] Rajat Pizarro M.B.B.S. [address] [place] [phone] 10/23/2023 8:40 AM CDT Appointment Department of Laboratory Medicine and Pathology, [facility], in [place], [place] [address] [place] [phone] Rajat Pizarro M.B.B.S. [address] [place] [phone] 10/23/2023 9:15 AM CDT Appointment Department of Radiology, [facility], in [place], [place] [address] [place] [phone] Rajat Pizarro M.B.B.S. [address] [place] [phone] 10/23/2023 10:00 AM CDT Office Visit Division of Rheumatology in [place], [place] [address] [place] [phone] Rajat Pizarro M.B.B.S. [address] [place] [phone] documented as of this encounter Procedures Procedure [...] CRP (C-Reactive Protein) (06/12/2023 12:28 PM CDT) [facility] C-Reactive Protein (CRP), S 5.2(H) <5.0 mg/L 06/12/2023 1:27 PM CDT DT Blood (Blood, Venous) 06/12/2023 12:28 PM CDT 06/12/2023 1:04 PM CDT Olivia Arreguin M.D. LAB BLOOD ADD- ON Performing Organization Address City/[facility]/ZIP Co de Phone Number [facility] [address] [place] [address], [facility] [address] [place] [address] * HBc Total Ab, Serum (06/12/2023 12:28 PM CDT) [facility] HBc Total Ab, S Negative Negative 06/12/2023 8:08 PM CDT [facility] Blood (Blood, Venous) 06/12/2023 12:28 PM CDT 06/12/2023 4:50 PM CDT Olivia Arreguin M.D. LAB MICROBIOLO GY - BLOOD ORDERABLES Performing Organization Address City/[facility]/ZIP Co de Phone Number [facility] [address] [place] [address] [facility] [address] [place] [address] * HBs Antibody, Serum (06/12/2023 12:28 PM CDT) [facility] HBs Antibody, S Negative 06/12/2023 8:08 PM CDT [facility] Comment: Patient is presumed to be not immune to infection with HBV. ----REFERENCE VALUE---- Unvaccinated: Negative Vaccinated: Positive HBs Antibody, Quantitative, S <5.0 mIU/mL 06/12/2023 8:08 PM CDT [facility] Comment: ----REFERENCE VALUE---- Unvaccinated: <5.0 Vaccinated: >=12.0 Blood (Blood, Venous) 06/12/2023 12:28 PM CDT 06/12/2023 4:50 PM CDT Olivia Arreguin M.D. LAB MICROBIOLO GY - BLOOD ORDERABLES [facility] [address] [place] [address] [facility] [address] [place] [address] * (ABNORMAL) Comprehensive Metabolic Panel (06/12/2023 12:28 PM CDT) Pathologist [facility] Potassium, S 4.2 3.6 - 5.2 [...] LAB BLOOD ADD- ON Performing Organization Address City/[facility]/ZIP Co de Phone Number [facility] 200 [place] [address], [place] [address] * Sedimentation Rate (06/12/2023 12:27 PM CDT) Sedimentation Rate, B 16 2 - 22 mm/h 06/12/2023 1:57 PM CDT DTL Blood (Blood, Venous) 06/12/2023 12:27 PM CDT 06/12/2023 12:51 PM CDT Olivia Arreguin M.D. LAB BLOOD ADD- ON [facility] 200 [place] [address], [place] [address] * HCV Ab w/Reflex to HCV PCR, Serum (06/12/2023 12:27 PM CDT) HCV Ab, S Negative Negative 06/14/2023 10:56 AM CDT [facility] Comment: Consumption of high-dose biotin supplement within 12 hours of blood collection for this test can cause false-negative results. Blood (Blood, Venous) 06/12/2023 12:27 PM CDT 06/12/2023 4:50 PM CDT Olivia Arreguin M.D. LAB MICROBIOLO GY - BLOOD ORDERABLES Performing Organization Address [facility]/ZIP Co de Phone Number [facility] [address] [place] [address] [facility] [address] [place] [address] * Hepatitis B Surface Antigen (06/12/2023 12:27 PM CDT) HBs Antigen, S Negative Negative 06/14/2023 10:56 AM CDT [facility] Blood (Blood, Venous) 06/12/2023 12:27 PM CDT 06/12/2023 4:50 PM CDT Olivia Arreguin M.D. LAB MICROBIOLO GY - BLOOD ORDERABLES Performing Organization Address [facility] de Phone Number [facility] [address] [place] [place] [address] [facility] [address] [place] [address] * 1,25-Dihydroxyvitamin D (06/12/2023 12:27 PM CDT) 1, 25 DIHYDROXYVITAMIN D, S 41 18 - 78 pg/mL 06/14/2023 2:01 PM CDT [facility] Comment: ----ADDITIONAL INFORMATION---- This test was developed and its performance characteristics determined by [facility] in a manner consistent with CLIA requirements. This test has not been cleared or approved by the U.S. Food and Drug Administration. Blood (Blood, Venous) 06/12/2023 12:27 PM CDT 06/13/2023 7:43 AM CDT Olivia Arreguin M.D. LAB BLOOD ADD- ON Performing Organization Address City/[facility]/ZIP Co de Phone Number [facility] [address] [place] [address] [facility] [address] [place] [address] [place] [address] * (ABNORMAL) 25-Hydroxyvitamin D2 and D3 (06/12/2023 12:27 PM CDT) Pathologist [facility] 25-Hydroxy D2 <4.0 ng/mL 06/17/2023 1:31 PM CDT [facility] 25-Hydroxy D3 16 ng/mL 06/17/2023 1:31 PM CDT [facility] 25-Hydroxy D Total 16(L) ng/mL 2023 1:31 PM CDT [facility] Comment: Interpretation: 10-19 ng/mL (mild to moderate deficiency) ----REFERENCE VALUE---- 25-HYDROXY D TOTAL (D2+D3) Optimum levels in the healthy population are 20-50, patients with bone disease may benefit from higher levels within this range. ----ADDITIONAL INFORMATION---- This test was developed and its performance characteristics determined by [facility] in a manner consistent with CLIA requirements. This test has not been cleared or approved by the U.S. Food and Drug Administration. Blood (Blood, Venous) 06/12/2023 12:27 PM CDT 06/13/2023 7:17 AM CDT Olivia Arreguin M.D. LAB BLOOD ADD- ON [facility] [address] [place] [address] [facility] [address] [place] [address] [place] [address] * (ABNORMAL) CBC with Differential, Blood (06/12/2023 [...] Olivia Arreguin M.D. LAB BLOOD ADD- ON [facility] [address] [place] [address], [facility] DTL [facility] [address] [place] [address] DHPM [facility] [address] [place] [address] documented in this encounter Visit Diagnoses Diagnosis 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
--- OUTSIDE RECORDS SUMMARY | 2023-08-06 21:00 | XMS_ITS | Encounter Summary ---
Author Organization [facility] Address [address] [place] [address] Care Team Providers Care Corporate Compliance Manager Name Role Phone Unavailable Primary Care Provider Unavailabl e Encounter Details Date Type Department Care Team ([facility] st Contact Info) Description 06/12/2023 11:30 AM CDT Education Division of Rheumatology in [place], [place] [address] [place] [phone] Olivia Arreguin M.D. [address] [place] [phone] Clark Beebe RSandieNSandie [address] [place] [phone] Sarcoidosis; Immunodeficiency Due To Drugs (HCC) Social History Tobacco Use Types Packs/Day Years Used Date Smoking Tobacco: Former Cigarettes 0.5 10 0 02/25/1994 - 02/26/2004 Passive Smoke Exposure: Past Smokeless Tobacco: Never Alcohol Use Standard Drinks/Week Comments Yes 2 (1 standard drink = 0.6 oz pur e alcohol) [facility] Utilities Answer Date Recorded In the [...] How often do you attend chur or sabianist services? More than 4 times per year [...] heating? Not hard at all 11/22/2021 [facility] [place] of Occupat ional Health - Occupational Stress [...] your living situation today? I have a [facility] place to live 03/30/2023 Education Answer Date Recorded What is the highest level of school you have completed or the highest degree you have received? Master's degree (e.g., MA, MS, Arti, MEd, [employer]IDGE [employer], GALA) 11/22/2021 Sex and Gender Information Value [...] AM CDT Clinical Communication Virtual Review in [place], [place] [address] [place] [phone] 08/20/2023 8:40 AM CDT Appointment Department of Cardiovascular Diseases in [place], [place] [address] [place] [phone] Neisha Nolan APRN, C.N.P., M.S.N. 08/20/2023 9:10 AM CDT Appointment Department of Laboratory Medicine and Pathology, [facility] in [address] [phone] Neisha Nolan APRN, C.N.P., M.S.N. 08/20/2023 10:45 AM CDT Appointment Department of Cardiovascular Diseases in [place], [place] [address] [place] [phone] Rajat iPzarro M.B.B.S. [address] [place] [phone] 08/20/2023 1:15 PM CDT Appointment Department of Radiology, [facility] in [place], [place] [address] [place] [phone] Neisha Nolan APRN, C.N.P., M.S.N. 08/21/2023 9:00 AM CDT Office Visit Department of Cardiovascular Medicine in [address] [phone] Ghada Perdomo APRN, C.N.P., M.S.N. [address] [place] [phone] 08/21/2023 11:45 AM CDT Ancillary Procedure Department of Cardiovascular Medicine in [place], [place] [address] [place] [phone] Rajat Pizarro M.B.B.S. [address] [place] [phone] 08/21/2023 1:00 PM CDT Comprehensive Visit Department of Cardiovascular Medicine in [place], [place] [address] [place] [phone] Hamilton Babcock M.D. [address] [place] [phone] 10/21/2023 9:45 AM CDT Clinical Communication Virtual Review in [place], [place] [address] [place] [phone] 10/23/2023 7:30 AM CDT Diagnostic Division of Pulmonary Medicine in [place], [place] [address] [place] [phone] Rajat Pizarro M.B.B.S. [address] [place] [phone] 10/23/2023 8:40 AM CDT Appointment Department of Laboratory Medicine and Pathology, [facility] in [place], [place] [address] [place] [phone] Rajat Pizarro M.B.B.S. [address] [place] [phone] 10/23/2023 9:15 AM CDT Appointment Department of Radiology, [facility], in [place], [place] [address] [place] [phone] Rajat Pizarro I. M.B.B.S. [address] [place] [address] 10/23/2023 10:00 AM CDT Office Visit Division of Rheumatology in [place], [place] [address] [place] [address] Rajat Pizarro M.B.B.S. [address] [place] [phone] documented as of this encounter Visit Diagnoses Diagnosis 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
--- OUTSIDE RECORDS SUMMARY | 2023-08-06 21:00 | XMS_ITS | Encounter Summary ---
Author Organization [facility] Address [address] [place] [address] Care Team Providers Care Sweetbread Trimmer Name Role Phone Unavailable Primary Care Provider Unavailabl e Reason for Referral * Outpatient (Routine) - Closed Specialty Diagnoses / Procedures Referred By Contac t Referred To Contact Diagnoses Sarcoidosis Corticosteroid Treatment Kiln Repairer Systemic Immunodeficiency Due To Drugs (HCC) Procedures BMD Bone Density Spine Hips Olivia Arreguin M.D. [address] [place] [phone] [facility] Referral ID Status Reason Start Date Expiration Date Visits Re quested Visits Authorized [id number] Closed 06/12/2023 06/11/2024 1 1 Reason for Visit * Outpatient (Routine) - Closed Specialty Diagnoses / Procedures Referred By Contac t Referred To Contact Diagnoses Sarcoidosis Corticosteroid Treatment Kiln Repairer Systemic Immunodeficiency Due To Drugs (HCC) Procedures BMD Bone Density Spine Hips Olivia Arreguin M.D. [address] [place] [phone] [facility] Referral ID Status Reason Start Date Expiration Date Visits Re quested Visits Authorized [id number] Closed 06/12/2023 06/11/2024 1 1 Encounter Details Date Type Department Care Team (Latest Contact Info) Description 06/12/2023 12:56 PM CDT - 06/12/2023 11:59 PM CDT Hospital Encounter Department of Radiology, [facility], in [place], [place] [address] [place] [phone] Olivia Arreguin M.D. [address] [place] [address] Sarcoidosis; Corticosteroid Treatment Mcfp Systemic; Immunodeficiency Due To Drugs (HCC) Discharge Disposition: Home or Self Care Social History Tobacco Use Types Packs/Day Years Used Date Smoking Tobacco: Former Cigarettes 0.5 10 0 02/25/1994 - 02/26/2004 Passive Smoke Exposure: Past Smokeless Tobacco: Never Alcohol Use Standard Drinks/Week Comments Yes 2 (1 standard drink = 0.6 oz pur e alcohol) [facility] Utilities Answer Date Recorded In the [...] often do you attend chur ch or anabaptist services? More than 4 times per year 11/22/2021 Do you belong to any clubs o r organizations such as pentecostal groups, unions, fraternal or athletic groups, or [...] and heating? Not hard at all 11/22/2021 [facility] [place] of Occupat ional Health - Occupational Stress [...] your living situation today? I have a [facility] place to live 03/30/2023 Education Answer Date Recorded What is the highest level of school you have completed or the highest degree you have received? Master's degree (e.g., MA, MS, Arti, MEd, CAREER SERVICES MANAGER, GALA) 11/22/2021 Sex and Gender Information [...] AM CDT Clinical Communication Virtual Review in [place], [place] [address] [place] [address] 08/20/2023 8:40 AM CDT Appointment Department of Cardiovascular Diseases in [place], [place] [address] [place] [phone] Neisha Nolan, JESSIKA, C.N.P., M.S.N. 08/20/2023 9:10 AM CDT Appointment Department of Laboratory Medicine and Pathology, [facility], in [place], [place] [address] [place] [phone] Neisha Nolan APRN, C.N.P., M.S.N. 08/20/2023 10:45 AM CDT Appointment Department of Cardiovascular Diseases in [place], [place] [address] [place] [phone] Rajat Pizarro I., Flores.B.B.S. [address] [place] [phone] 08/20/2023 1:15 PM CDT Appointment Department of Radiology, [facility], in [place], [place] [address] [place] [phone] Neisha Nolan APRN, C.N.P., M.S.N. 08/21/2023 9:00 AM CDT Office Visit Department of Cardiovascular Medicine in [place], [place] [address] [place] [phone] Ghada Perdomo APRN, C.N.P., M.S.N. [address] [place] [phone] 08/21/2023 11:45 AM CDT Ancillary Procedure Department of Cardiovascular Medicine in [place], [place] [address] [place] [phone] Rajat Pizarro M.B.B.S. [address] [place] [phone] 08/21/2023 1:00 PM CDT Comprehensive Visit Department of Cardiovascular Medicine in [place], [place] [address] [place] [phone] Hamilton Babcock M.D. [address] [place] [phone] 10/21/2023 9:45 AM CDT Clinical Communication Virtual Review in [place], [place] 200 [place] [phone] 10/23/2023 7:30 AM CDT Diagnostic Division of Pulmonary Medicine in [place], [place] [address] [place] [address] Rajat Pizarro M.B.B.S. [address] [place] [phone] 10/23/2023 8:40 AM CDT Appointment Department of Laboratory Medicine and Pathology, [facility] in [place], [place] [address] [place] [address] Rajat Pizarro M.B.B.S. [address] [place] [phone] 10/23/2023 9:15 AM CDT Appointment Department of Radiology, [facility] in [place], [place] [address] [place] [phone] Rajat Pizarro M.B.B.S. [address] [place] [phone] 10/23/2023 10:00 AM CDT Office Visit Division of Rheumatology in [place], [place] [address] [place] [phone] Rajat Pizarro M.B.B.S. [address] [place] [phone] documented as of this encounter Procedures Procedure Name Priority Date/Time Associated Diagnosis Comments BMD BONE DENSITY SPINE HIPS RAD - Routine (most inpatients and all outpatients) 06/12/2023 1:34 PM CDT Sarcoidosis Corticosteroid Treatment Kiln Repairer Systemic Immunodeficiency Due To Drugs (HCC) documented [...] Bone Mineral Density (BMD) analysis performed on [employer] with serial number [id number]. ? FINDINGS: Left Hip: Femur Neck: BMD [...] image stored in the BMD study in EADS), the calculated ten year probability of fracture is: FRAX Risk Factors: None FRAX (10 yr probability) adjusted for TBS: Major Osteoporotic Fracture: ??4.4 % Hip Fracture: ?0.2 % ? Procedure Note Scot Carrasco M.D. - 06/12/2023 EXAM: BMD BONE DENSITY SPINE HIPS Bone Mineral Density (BMD) analysis performed on [employer] with serialnumber [id number]. FINDINGS: Left Hip: Femur Neck: BMD = [...] report, including images and graphs,is available in [employer]. In the absence of other causes of [...] encounter Visit Diagnoses Diagnosis Sarcoidosis Corticosteroid Treatment Mcfp Systemic Immunodeficiency Due To Drugs (HCC) documented in this encounter
--- OUTSIDE RECORDS SUMMARY | 2023-08-06 21:00 | XMS_ITS | Encounter Summary ---
Author Organization [facility] Address [address] [place] [id number] Care Team Providers Care Electronic Calibration Technician Name Role Phone Unavailable Primary Care Provider Unavailabl e Reason for Referral * Outpatient (Routine) - Authorized Specialty Diagnoses / Procedures Referred By Martina david Referred To Contact Sleep Medicine Diagnoses Obstructive Sleep Apnea Adult Neisha Nolan APRN C.N.P., M.S.N. [address] [place] [address] [facility] [address] [place] [address] Referral ID Status Reason Start Date Expiration Date Visits Requested Visits Authorized [id number] Authorized Continuity of Care 05/02/2023 10/31/2024 1 1 CAD OPERATOR Encounter Details Date Type Department Care Team (Late st Contact Info) Description 05/02/2023 Orders Only Department of Cardiovascular Medicine in [place], [place] [address] [place] [phone] Neisha Nolan APRN C.N.P., M.S.N. Obstructive Sleep Apnea Adult (Primary Dx) Social History Tobacco Use Types Packs/Day Years Used Date Smoking Tobacco: Former Cigarettes 0.5 10 0 02/25/1994 - 02/26/2004 Smokeless Tobacco: Never Alcohol Use Standard Drinks/Week Comments Yes 2 (1 standard drink = 0.6 oz pur e alcohol) [facility] Utilities Answer Date Recorded In the past 12 months has th e [employer], gas, oil, or water company threatened to [...] often do you attend chur ch or restorationist services? More than 4 times per year 11/22/2021 Do you belong to any clubs o r organizations such as latter day groups, unions, fraternal or athletic groups, or [...] heating? Not hard at all 11/22/2021 [facility] of Occupat ional Health - Occupational Stress [...] your living situation today? I have a [facility] place to live 03/30/2023 Education Answer Date Recorded What is the highest level of school you have completed or the highest degree you have received? Master's degree (e.g., MA, MS, Arti, MEd, [employer], [employer]) 11/22/2021 Sex and Gender Information Value Date Recorded Sex Assigned at Female 11/22/2021 11:24 PM CDT Gender Identity Female 11/22/2021 11:24 PM CDT Sexual Orientation Lesbian or Alonso 11/22/2021 11 :24 PM CDT documented as of this encounter Plan of Treatment Upcoming Encounters Date Type Department Care Team (Latest Contact Info) Description 08/16/2023 8:15 AM CDT Clinical Communication Virtual Review in [place], [place] [address] [place] [phone] 08/20/2023 8:40 AM CDT Appointment Department of Cardiovascular Diseases in [place], [place] [address] [place] [phone] Neisha Nolan APRN, C.NCher, M.S.N. 08/20/2023 9:10 AM CDT Appointment Department of Laboratory Medicine and Pathology, [facility] in [place], [place] [address] [place] [phone] Neisha Nolan APRN, C.N.P., M.S.N. 08/20/2023 10:45 AM CDT Appointment Department of Cardiovascular Diseases in [place], [place] [address] [place] [phone] Rajat Pizarro M.B.B.S. [address] [place] [phone] 08/20/2023 1:15 PM CDT Appointment Department of Radiology, [facility] in [place], [place] [address] [place] [phone] Neisha Nolan APRN, C.NCher, M.S.N. 08/21/2023 9:00 AM CDT Office Visit Department of Cardiovascular Medicine in [place], [place] [address] [place] [phone] Ghada Perdomo APRN, C.NJae., M.S.N. [address] [place] [phone] 08/21/2023 11:45 AM CDT Ancillary Procedure Department of Cardiovascular Medicine in [place], [place] [address] [place] [phone] Rajat Pizarro M.B.B.S. [address] [place] [phone] 08/21/2023 1:00 PM CDT Comprehensive Visit Department of Cardiovascular Medicine in [place], [place] [address] [place] [phone] Hamilton Babcock M.D. [address] [place] [phone] 10/21/2023 9:45 AM CDT Clinical Communication Virtual Review in [place], [place] [address] [place] [phone] 10/23/2023 7:30 AM CDT Diagnostic Division of Pulmonary Medicine in [place], [place] [address] [place] [phone] Rajat Pizarro M.B.B.S. [address] [place] [phone] 10/23/2023 8:40 AM CDT Appointment Department of Laboratory Medicine and Pathology, [facility], in [place], [place] [address] [place] [phone] Rajat Pizarro M.B.B.S. [address] [place] [phone] 10/23/2023 9:15 AM CDT Appointment Department of Radiology, [facility], in [place], [place] [address] [place] [phone] Rajat Pizarro M.B.B.S. [address] [place] [phone] 10/23/2023 10:00 AM CDT Office Visit Division of Rheumatology in [place], [place] [address] [place] [phone] JuarezRajat griffith M.B.B.S. [address] [place] [phone] documented as of this encounter Visit Diagnoses Diagnosis Obstructive Sleep Apnea Adult- Primary documented in this encounter
--- OUTSIDE RECORDS SUMMARY | 2023-08-06 21:01 | XMS_ITS | Clinical Summary ---
Author Organization [facility] Address [place], [place] [address] Care Team Providers Care 3Rd Mate Name Role Phone Lavern Beavers MD Primary Care Provider [phone] Allergies Active Allergy Reactions Criticality Noted Date Comments Sulfa (Sulfonamide Antibiotics) Nausea And Vomiting 01/30/2021 Medications Medication Sig Dispensed Refills Start Date End Date Status mometasone-formo terol (Dulera) 200-5 mcg/actuation inhalerIndicatio ns:Sarcoidosis USE 2 INHALATIONS TWICE A DAY 39 g 2 03/11/19 24 Active metroNIDAZOLE 0.75 % creamIndications :Rosacea Apply topically to affected area on face once-twice daily. 45 g 2 06/05/19 24 Active methotrexate sodium/PF (methotrexate, preservative free,) 25 mg/mL soln Inject As Directed once weekly. 0.4 ml (10mg) SC Q week x 14 days, 0.6 ml (15mg) SC Q week x 14 days, then 0.8 ml (20 mg) q week Active omeprazole (PRILOSEC) 20 mg Delayed-Release capsule Take 20 mg by mouth once daily. While on prednisone Active atovaquone (MEPRON) 750 mg/5 mL suspension Take 750 mg by mouth two times daily. For PCP prophylaxis while on prednisone doses of > 15 mg per day Active folic acid 1 mg tablet Take 1 mg by mouth once daily. Active calcium carbonate (Calcium 500) 500 mg calcium (1,250 mg) chewable tablet Chew 1,250 mg by mouth once daily. Active cholecalciferol (Vitamin D-3) 400 unit tablet Take 800 units by mouth once daily. Active WalkerIndication s:Mitral valve insufficiency, unspecified etiology Walker with front wheels for home use. 1 Each 07/08/19 24 Active busPIRone (BUSPAR) 10 mg tabletIndication s:Anxiety Take 2 Tablets (20 mg) by mouth or nasogastric tube three times daily. 60 Tablet 07/09/19 24 Active nortriptyline (PAMELOR) 10 mg capsuleIndicatio ns:Anxiety Take 1 Capsule (10 mg) by mouth at bedtime if needed for Sleep (sleep/anxiety). 07/09/19 24 Active predniSONE (DELTASONE) 20 mg tabletIndication s:Sarcoidosis Take 2 tablets (40 mg) by mouth daily for 2 weeks, then decrease by one-half tablet (10 mg) every 2 weeks as directed. 60 Tablet 07/10/19 24 Active QUEtiapine (SEROQUEL) 25 mg tabletIndication s:Anxiety Take 1 Tablet (25 mg) by mouth at bedtime if needed for Agitation or Hallucinations (sleep). 07/09/19 24 Active amiodarone (CORDARONE) 200 mg tabletIndication s:Ventricular trigeminy Take 1 Tablet (200 mg) by mouth once daily. 90 Tablet 07/29/19 24 Active metoprolol succinate (TOPROL XL) 50 mg sustained-releas e tabletIndication s:Ventricular trigeminy Take 1 Tablet (50 mg) by mouth two times daily. 180 Tablet 07/29/19 24 Active potassium chloride (KLOR-CON M20) 20 mEq extended-release tablet (part/cryst)Gisela cations:Hypokale julia Take 1 Tablet (20 mEq) by mouth once daily. 30 Tablet 08/03/19 24 Active tamsulosin (FLOMAX) 0.4 mg capsuleIndicatio ns:Nephrolithias is Take 1 Capsule (0.4 mg) by mouth once daily after a meal. 14 Capsule 08/03/19 24 Active nortriptyline (PAMELOR) 10 mg capsuleIndicatio ns:Anxiety Take 2 Capsules (20 mg) by mouth at bedtime. 200 Capsule 3 06/21/19 24 024 Discontinued QUEtiapine (SEROQUEL) 25 mg tabletIndication s:Anxiety Take 1 Tablet (25 mg) by mouth at bedtime. 100 Tablet 3 06/21/19 24 024 Discontinued predniSONE (DELTASONE) 5 mg tablet Take 2.5-30 mg by mouth once daily. 30 mg daily x 28 days, 25 mg daily x 28 days, 20 mg daily x 28 days, 15 mg daily x 28 days, 10 mg daily x 14 days, 7.5 mg daily x 14 days, 5 mg daily x 14 days, 2.5 mg daily x 14 days 024 Discontinued(*I P Discontinued) amiodarone (CORDARONE) 200 mg tabletIndication s:Ventricular trigeminy Take 2 Tablets (400 mg) by mouth two times daily thorugh 07/11/23. THEN reduce on 07/12/23 to 2 tabs ONCE daily for 1 week. THEN reduce on 07/19/23 to 1 tab daily thereafter 180 Tablet 07/09/19 24 024 Discontinued(Re order (E-cancel not sent)) metoprolol succinate (TOPROL XL) 50 mg sustained-releas e tabletIndication s:Ventricular trigeminy Take 1 Tablet (50 mg) by mouth two times daily. 60 Tablet 1 07/09/19 024 Discontinued(Re order (E-cancel not sent)) Active Problems Problem Noted [...] Date Type Department Care Team Description 08/06/2023 Telephone [facility] [address] [place] [address] Cristina Chu PA Questions 08/05/[address] [place] [address] Addy Davies MD Device Check 08/05/2023 Telephone [facility] [address] [place] [phone] Addy Davies MD Follow Up 08/03/2023 12:41 PM CDT - 08/03/2023 11:59 PM CDT Hospital Encounter [facility] [address] [place] [address] Angie Suggs, AZEB Hematuria, unspecified type 08/03/2023 11:10 AM CDT Office Visit [facility] [address] [place] [phone] Angie Suggs, AZEB Blood In Urine 08/03/2023 Travel 08/03/2023 Nurse Triage [facility] [address] [place] [address] Lavern Beavers MD Questions 08/01/2023 Telephone [facility] [address] [place] [address] Viktor Oconnor MD Cardiology Appointment 07/30/2023 10:30 AM CDT Telemedicine [facility] [address] [place] [address] Susannah Barrientos NP Sleep Consult (HST last summer); Telehealth (no vitals) 07/29/2023 Medical Messaging [facility] [address] [place] [address] Lavern Beavers MD Sleep study 07/23/2023 Orders Only [facility] [address] [place] [address] Viktor Oconnor MD <No scans attached> 07/17/2023 2:20 PM CDT Office Visit [facility] [address] [place] [address] Lavern Beavers MD Hospital F/U (chest pain/broken ribs, fatigued, tired ) 07/16/2023 11:00 AM CDT Procedure Only [facility] [address] [place] [address] Device Check (In-Clinic Med[employer] ICD Eval... 07/16/2023 Travel 07/10/2023 Telephone [facility] [address] [place] [address] Addy Davies MD Imaging (24 hour monitor/) 07/10/2023 Patient Outreach [facility] [address] [place] [address] Deloris Draper, MANE Primary RN Care Management; Hospital F/U (LACE 25) 07/09/2023 Orders Only [facility] [address] [place] [address] Obi Loyola MD <No scans attached> 07/08/2023 Travel 07/03/2023 Travel 06/30/2023 Travel 06/29/2023 9:12 PM CDT - 07/09/2023 4:02 PM CDT Hospital Encounter [facility] [address] [place] [address] Kristina Whittaker MBBS [facility] Hospitalist anthony Tucker, DO Polo Winters, MD Feliz Graham, MD Salazar Donaldson, Ashwin Yin MD Ventricular trigeminy (Primary Dx); Mitral valve insufficiency, unspecified etiology; Anxiety; Sarcoidosis; Cardiac arrest (HC); Hypokalemia Discharge Disposition: Home Health 06/29/2023 Orders Only [facility] Scanner 1 scan: (1-Ord) [facility], CHEST, 06/29/2023 06/17/2023 1:55 PM CDT Office Visit [facility] [address] [place] [address] Lavern Beavers MD Physical (referrals from [facility]); Establish Care (/) 06/17/2023 Orders Only [facility] [address] [place] [address] Lavern Beavers MD Outside Order (Ordered by Rajat Pizarro) 06/17/2023 Travel 06/05/2023 8:30 AM CDT Office Visit [facility] [address] [place] [address] Charisse Cabrera MD Derm Problem (fbse) 06/05/2023 Travel from Last 3 Months Immunizations Name Administration Dates Next Due COVID-19 Vaccine Spikevax (M oderna 50mcg/0.5mL) 12YO+ [id number] Formula PF 06/17/2023,12/25/2022 Influenza, IIV4 12/25/2022,12/31/2021,04/21/2020 Pneumococcal [...] Sign Reading Time Taken Comments Blood Pressure 124/73 08/03/2023 11:29 AM CDT Pulse 64 08/03/2023 11:29 AM CDT Temperature 36.5 ??C (97.7 ??F) 08/03/2023 11:29 AM C DT Respiratory Rate 20 08/03/2023 11:29 AM CDT Oxygen Saturation 98% 08/03/2023 11:29 AM CDT Inhaled Oxygen Concentration - - Weight 105 kg (231 lb 8 oz) 08/03/2023 11:29 AM CDT Height 172 cm (5' 7.72) 06/29/2023 11:00 PM CDT Body Mass Index 35.49 06/29/2023 11:00 PM CDT Plan of Treatment Upcoming Encounters Date Type Department Care Team (Late st Contact Info) Description 08/12/2023 8:20 AM CDT Office Visit [facility] [address] [place] [address] Lavern Beavers MD [address] [place] [address] 08/23/2023 Procedure Only [facility] [address] [facility] [address] [place] [address] 08/27/2023 10:20 AM CDT Telemedicine [facility] [address] [place] [address] Susannah Barrientos NP [address] [place] [address] 06/16/2024 8:30 AM CDT Office Visit [facility] [address] [facility] [address] [place], [place] [address] Charisse Cabrera MD [address] [facility] [address] [place], [place] [id number] Health Maintenance Due Date Last Done Comments HIV for age 15-65 1978 Mammogram for age 45-75 06/19/2023 06/19/19 23, 08/10/2020 (Completed outside of [facility] COVID-19 vaccine series (8 - 2022-24 season) [...] through age 75 10/26/202410/26 (Completed outside of [facility] Pap test for age 21-65 05/22/2026 05/22/2021, 2021 Lipids for age 45-75 05/29/2027 05/28/2022, 05/23/19 Tetanus booster 08/15/2032 08/15/2022, 09/02/2013 Hepatitis C screening for ag e 18-79 Completed 05/22/2021 Tdap Completed 08/15/2022, 09/02/2013 Pneumococcal series for age 6-64 Completed 02/28/19 Procedures Procedure Name Priority Date/Time Associated Diagnosis Comments CT ABDOMEN PELVIS W STAT 08/03/2023 1 :04 PM CDT Hematuria, unspecified type RED CELL MORPHOLOGY STAT 08/03/2023 1 2:02 PM CDT Hematuria, unspecified type PLATELET ESTIMATE STAT 08/03/2023 12: 02 PM CDT Hematuria, unspecified type MANUAL DIFFERENTIAL STAT 08/03/2023 1 2:02 PM CDT Hematuria, unspecified type CBC WITH AUTO DIFFERENTIAL STAT 08/03/2023 12:02 PM CDT Hematuria, unspecified type COMP METABOLIC PANEL STAT 08/03/2023 12:02 PM CDT Hematuria, unspecified type CBC WITH AUTO DIFFERENTIAL STAT 08/03/2023 12:02 PM CDT Hematuria, unspecified type URINE CULTURE Add On 08/03/2023 11:22 AM CDT Hematuria, unspecified type URINALYSIS MICROSCOPIC STAT 11:22 AM CDT Hematuria, unspecified type UA W/ SEDIMENT EXAM REFLEXED PER CRITERIA STAT 08/03/2023 11:22 AM CDT Hematuria, unspecified type BASIC METABOLIC PANEL Routine 07/17/2023 4:11 PM CDT Hospital discharge follow-up EKG 12 LEAD Routine 07/09/2023 8:21 AM CDT POTASSIUM Early AM 07/09/2023 5:05 AM CDT SCAN-CARDIAC STRIP 07/08/2023 8: 02 PM CDT SCAN-CARDIAC STRIP 07/08/2023 8: 00 AM CDT EKG 12 LEAD Routine 07/08/2023 7:04 AM CDT POTASSIUM Timed 07/08/2023 5:05 AM CDT SCAN-CARDIAC STRIP 07/08/2023 12 :00 AM CDT SCAN-CARDIAC STRIP 07/07/2023 3: 36 PM CDT SCAN-CARDIAC STRIP 07/07/2023 7: 30 AM CDT EKG 12 LEAD Routine 07/07/2023 7:14 AM CDT MAGNESIUM Early AM 07/07/2023 5:36 AM CDT POTASSIUM Early AM 07/07/2023 5:36 AM CDT SCAN-CARDIAC STRIP 07/06/2023 7: 28 PM CDT SCAN-CARDIAC STRIP 07/06/2023 3: 44 PM CDT MAGNESIUM Early AM 07/06/2023 5:06 AM CDT POTASSIUM Early AM 07/06/2023 5:06 AM CDT ALT (SGPT) Early AM 07/06/2023 5:06 AM CDT AST (SGOT) Early AM 07/06/2023 5:06 AM CDT SCAN-CARDIAC STRIP 07/06/2023 1: 28 AM CDT SCAN-CARDIAC STRIP 07/05/2023 4: 42 PM CDT XR VIDEO SWALLOW W SPEECH Routine 07/05/2023 10:00 AM CDT XR CHEST 2 VIEWS PA AND LATERAL Routine 07/05/2023 7:03 AM CDT MAGNESIUM Early AM 07/05/2023 5:06 AM CDT POTASSIUM Early AM 07/05/2023 5:06 AM CDT SCAN-CARDIAC STRIP 07/05/2023 12 :05 AM CDT CV PROCEDURE TO BE PERFORMED Routine 07/04/2023 5:32 PM CDT SCAN-CARDIAC STRIP 07/04/2023 4: 16 PM CDT EKG 12 LEAD Routine 07/04/2023 3:44 PM CDT EP ICD Routine 07/04/2023 12:38 PM CDT SCAN-CARDIAC STRIP 07/04/2023 7: 12 AM CDT MAGNESIUM Early AM 07/04/2023 5:44 AM CDT BASIC METABOLIC PANEL Early AM 07/04/2023 5:44 AM CDT CBC W PLT NO DIFF Early AM 07/04/2023 5:4 4 AM CDT SCAN-PACER 07/04/2023 12:[address] SPINE CERVICAL WO STAT 07/03/2023 10:25 [...] CDT AMMONIA Today 06/30/2023 1:40 PM CDT NEURON SPECIFIC ENOLASE BLOOD Today 06/30/2023 1:40 PM CDT EKG 12 [...] ONE TIME STAT 06/29/2023 9:00 PM CDT SCAN-RADIOLOGY REPORT 06/29/2023 12:00 AM CDT SCAN-CARDIAC STRIP 06/29/2023 12 :00 AM CDT SCAN-CARDIAC STRIP 06/29/2023 12 :00 AM [...] Relevant to Health Maintenance Results * CT ABDOMEN PELVIS W (08/03/2023 1:04 PM CDT) Anatomical Region Laterality Modality Abdomen, Pelvis, AORTA, LIVER, SPLEEN Computed Tomography 08/03/2023 1:35 PM CDT Narrative 08/03/2023 1:35 PM CDT For Patients: ??As a result of the Century Cures Act, medical imaging exams and procedure reports are released immediately into your electronic medical record. ??You may view this report before your referring provider. ??If you have questions, please contact your health care provider. Indication: Gross hematuria without flank pain. Technique: CT of the abdomen and pelvis was performed following the administration of 100 mL Omnipaque 300. Comparison: Ultrasound 09/12/2021. Findings: Visualized lung bases: Mild interlobular septal thickening in the lower lobes. Linear scarring versus subsegmental atelectasis in the visualized lung bases. Mitral annular calcifications. Partially visualized pacemaker leads. Liver: Fluid attenuation right hepatic lobe cyst. Too small to characterize hypodensities within both lobes. Post cholecystectomy. No biliary ductal dilation. Pancreas: Unremarkable. Spleen: Unremarkable. Adrenals: Unremarkable. Kidneys: Symmetric renal enhancement. Left renal cortical scarring and too small to characterize hypodensity. There is a 4 mm left proximal ureteral calculus without hydronephrosis no right ureteral calculi. Punctate nonobstructing right lower pole renal calculus and left lower pole renal calculus. Aorta/IVC: Normal in caliber. Lymph nodes: No lymphadenopathy. Bowel: Nonobstructed bowel. Normal appendix. No localized inflammatory changes. No intraperitoneal free air or fluid. Pelvis: Unremarkable. Bones/body wall: Unremarkable for age. Impression: 1. Nonobstructing left proximal ureteral calculus measuring 4 mm. 2. Punctate nonobstructing bilateral renal calculi. 3. Chronic/incidental findings as described. Please note that all CT scans at this facility use dose modulation, iterative reconstruction, and/or weight-based dosing when appropriate to reduce radiation dose to as low as reasonably achievable. Dictated by Evelina Donaldson MD @ 08/03/2023 1:35:02 PM (Electronically Signed) Procedure Note Evelina Donaldson, - 08/03/2023 For Patients: As a result of the Cures Act, medical imagingexams and procedure reports are released immediately into your electronicmedical record. You may view this report before your referring provider.If you have questions, please contact your health care provider. Indication: Gross hematuria without flank pain. Technique: CT of the abdomen and pelvis was performed following the administration of100 mL Omnipaque 300. Comparison: Ultrasound 09/12/2021. Findings: Visualized lung bases: Mild interlobular septal thickening in the lowerlobes. Linear scarring versus subsegmental atelectasis in the visualizedlung bases. Mitral annular calcifications. Partially visualized pacemakerleads. Liver: Fluid attenuation right hepatic lobe cyst. Too small tocharacterize hypodensities within both lobes. Post cholecystectomy. Nobiliary ductal dilation. Pancreas: Unremarkable. Spleen: Unremarkable. Adrenals: Unremarkable. Kidneys: Symmetric renal enhancement. Left renal cortical scarring and toosmall to characterize hypodensity. There is a 4 mm left proximal ureteralcalculus without hydronephrosis no right ureteral calculi. Punctatenonobstructing right lower pole renal calculus and left lower pole renalcalculus. Aorta/IVC: Normal in caliber. Lymph nodes: No lymphadenopathy. Bowel: Nonobstructed bowel. Normal appendix. No localized inflammatorychanges. No intraperitoneal free air or fluid. Pelvis: Unremarkable. Bones/body wall: Unremarkable for age. Impression: 1. Nonobstructing left proximal ureteral calculus measuring 4 mm. 2. Punctate nonobstructing bilateral renal calculi. 3. Chronic/incidental findings as described. Please note that all CT scans at this facility use dose modulation,iterative reconstruction, and/or weight-based dosing when appropriate toreduce radiation dose to as low as reasonably achievable. Dictated by Evelina Donaldson MD @ 08/03/2023 1:35:02 PM (Electronically Signed) Angie Suggs [employer]PORATE [employer] MANAGER CT * (ABNORMAL) CBC WITH AUTO DIFFERENTIAL (08/03/2023 12:02 PM CDT) Only the most recent of2 resultswithin the time period is included. WHITE BLOOD COUNT 8.2 4.5 - 11.0 thou/cu mm 08/03/2023 12:32 PM [facility] RED BLOOD COUNT 4.19 4.00 - 5.20 mil/cu mm 08/03/2023 12:32 PM [facility] HEMOGLOBIN 12.1 12.0 - 16.0 g/dL 08/03/2023 12:32 PM [facility] HEMATOCRIT 38.6 33.0 - 51.0 % 08/03/2023 12:32 PM [facility] MCV 92 80 - 100 fL 08/03/2023 12:32 PM [facility] MCH 28.9 26.0 - 34.0 pg 08/03/2023 12:32 PM [facility] MCHC 31.3(L) 32.0 - 36.0 g/dL 08/03/2023 12:32 PM [facility] RDW 21.2(H) 11.5 - 15.5 % 08/03/2023 12:32 PM [facility] PLATELET COUNT 145 140 - 440 thou/cu mm 08/03/2023 12:32 PM [facility] MPV 8.9 6.5 - 11.0 fL 08/03/2023 12:32 PM [facility] Blood BLOOD SPECIMEN / Unknown Venipuncture / Unknown 08/03/2023 12:02 PM CDT 08/03/2023 12:02 PM CDT Angie Suggs NP HEMATOLOGY Performing Organization Address [facility] Co de Phone Number [facility] [address] [place] [address] * (ABNORMAL) RED CELL MORPHOLOGY (08/03/2023 12:02 PM CDT) Only the most recent of2 resultswithin the time period is included. Pathologist [facility] POLYCHROMASIA Slight 08/03/2023 12:32 PM CDT [facility] RBC COMMENT Present(A) RBC morphology appears normal, RBC morphology within normal limits for newborns. 08/03/2023 12:32 PM CDT [facility] Blood BLOOD SPECIMEN / Unknown Venipuncture / Unknown 08/03/2023 12:02 PM CDT 08/03/2023 12:02 PM CDT Narrative Authorizing Provider Result Jhonny Suggs NP HEMATOLOGY Performing Organization Address [facility] Co de Phone Number [facility] [address] [place] [address] * PLATELET ESTIMATE (08/03/2023 12:02 PM CDT) Only the most recent of2 resultswithin the time period is included. [facility] PLATELET ESTIMATE Adequate Adequate, No estimate 08/03/2023 12:32 PM CDT [facility] Blood BLOOD SPECIMEN / Unknown Venipuncture / Unknown 08/03/2023 12:02 PM CDT 08/03/2023 12:02 PM CDT Narrative Authorizing Provider Result Jhonny Suggs NP HEMATOLOGY Performing Organization Address [facility] Co de Phone Number [facility] [address] [place] [address] * MANUAL DIFFERENTIAL (08/03/2023 12:02 PM CDT) Only the most recent of2 resultswithin the time period is included. [facility] % NEUTROPHILS 76.0 % 08/03/2023 12:32 PM CDT [facility] % LYMPHOCYTES 13.0 % 08/03/2023 12:32 PM T [facility] % MONOCYTES 9.0 % 08/03/2023 12:32 PM CDT [facility] % EOSINOPHILS 1.0 % 08/03/2023 12:32 PM [facility] % BASOPHILS 1.0 % 08/03/2023 12:32 PM T [facility] NEUTROPHILS ABSOLUTE 6.2 1.7 - 7.0 thou/cu mm 08/03/2023 12:32 PM CDT [facility] LYMPHOCYTES ABSOLUTE 1.1 0.9 - 2.9 thou/cu mm 08/03/2023 12:32 PM T [facility] MONOCYTES ABSOLUTE 0.7 <0.9 thou/cu mm 08/03/2023 12:32 PM T [facility] EOSINOPHILS ABSOLUTE 0.1 <0.5 thou/cu mm 08/03/2023 12:32 PM [facility] BASOPHILS ABSOLUTE 0.1 <0.3 thou/cu mm 08/03/2023 12:32 PM [facility] Blood BLOOD SPECIMEN / Unknown Venipuncture / Unknown 08/03/2023 12:02 PM CDT 08/03/2023 12:02 PM CDT Angie Suggs NP HEMATOLOGY [facility] [address] [place] [address] * (ABNORMAL) COMP METABOLIC PANEL (08/03/2023 12:02 PM CDT) Only the most recent of2 resultswithin the time period is included. SODIUM 142 136 - 145 mmol/L 08/03/2023 12:28 PM T [facility] POTASSIUM 3.0(L) 3.5 - 5.1 mmol/L 08/03/2023 12:28 PM [facility] CHLORIDE 103 98 - 107 mmol/L 08/03/2023 12:28 PM [facility] CO2,TOTAL 29 22 - 29 mmol/L 08/03/2023 12:28 PM [facility] ANION GAP 10 5 - 18 08/03/2023 12:28 PM [facility] GLUCOSE 96 70 - 99 mg/dL 08/03/2023 12:28 PM [facility] CALCIUM 9.6 8.8 - 10.2 mg/dL 08/03/2023 12:28 PM [facility] BUN 14 8 - 23 mg/dL 08/03/2023 12:28 PM [facility] CREATININE 0.99(H) 0.50 - 0.90 mg/dL 08/03/2023 12:28 PM [facility] BUN/CREAT RATIO 14 10 - 20 12:28 PM [facility] eGFR 65(L) >90 mL/min/1.7 3m2 08/03/2023 12:28 PM [facility] Comment:As of 2021, eG FR is calculated by the CKD-EPI creatinine equation without race adjustment. ??eGFR can be influenced by muscle mass, exercise, and diet. ??The reported eGFR is an estimation only and is only applicable if the renal function is stable. ALBUMIN 3.9(L) 4.0 - 4.9 g/dL 08/03/2023 12:28 PM [facility] PROTEIN,TOTAL 5.8(L) 6.0 - 8.0 g/dL 08/03/2023 12:28 PM [facility] BILIRUBIN,TOTAL 0.9 0.0 - 1.2 mg/dL 08/03/2023 12:28 PM [facility] ALK PHOSPHATASE 85 35 - 104 IU/L 08/03/2023 12:28 PM [facility] ALT (SGPT) 10 10 - 35 IU/L 08/03/2023 12:28 PM [facility] AST (SGOT) 17 10 - 35 IU/L 08/03/2023 12:28 PM [facility] Blood BLOOD SPECIMEN / Unknown Venipuncture / Unknown 08/03/2023 12:02 PM CDT 08/03/2023 12:02 PM CDT Angie Suggs [employer]PORATE HUM[employer] RESOURCES MANAGER CHEMISTRY Performing Organization Address City/[facility] Co de Phone Number [facility] [address] [place] [address] * (ABNORMAL) URINALYSIS MICROSCOPIC (08/03/2023 11:22 AM CDT) Only the most recent of2 resultswithin the time period is included. RBC >100(A) 0-2, None Seen /HPF 08/03/2023 11:47 AM CDT [facility] WBC 3-5 0-2, 3-5, None Seen /HPF 08/03/2023 11:47 AM CDT [facility] BACTERIA Few None Seen, Rare, Few Bacteria/H PF 08/03/2023 11:47 AM CDT [facility] EPITHELIAL CELLS Few None Seen, Few Epi/HPF 08/03/2023 11:47 AM CDT [facility] Mucus Present 08/03/2023 11:47 AM CDT [facility] Urine URINE SPECIMEN / Unknown Non-Blood / Unknown 08/03/2023 11:22 AM CDT 08/03/2023 11:28 AM CDT Camelia Keen NP URINE Performing Organization Address [facility] Co de Phone Number [facility] [address] [place] [address] * URINE CULTURE (08/03/2023 11:22 AM CDT) CULTURE <10,000 CFU/mL multiple organisms 08/05/2023 8:34 AM CDT [facility] TRAL LABORATORY Urine URINE SPECIMEN / Unknown Non-Blood / Unknown 08/03/2023 11:22 AM CDT 08/03/2023 11:28 AM CDT Angie Suggs CORPORATE HUMAN RESOURCES MANAGER MICROBIOLOGY Performing Organization Address City/[facility]/ZIP Co de Phone Number [facility] [address] [place] [address], [place] * (ABNORMAL) UA W/ SEDIMENT EXAM REFLEXED PER CRITERIA (UA w/ reflex micro if positive) [23015.2] (08/03/2023 11:22 AM CDT) Only the most recent of2 resultswithin the time period is included. COLOR Yellow Yellow Color 08/03/2023 11:47 AM [facility] CLARITY Slightly Cloudy(A) Clear Clarity 08/03/2023 11:47 AM [facility] SPECIFIC GRAVITY,URINE 1.020 1.010, 1.015, 1.020, 1.025 08/03/2023 11:47 AM [facility] PH,URINE 6.5 6.0, 7.0, 8.0, 5.5, 6.5, 7.5, 8.5 08/03/2023 11:47 AM [facility] UROBILINOGEN, QUALITATIVE Normal Normal EU/dl 08/03/2023 11:47 AM [facility] PROTEIN, URINE Trace(A) Negative mg/dL 08/03/2023 11:47 AM [facility] GLUCOSE, URINE Negative Negative mg/dL 08/03/2023 11:47 AM [facility] KETONES,URINE Negative Negative mg/dL 08/03/2023 11:47 AM [facility] BILIRUBIN,URI NE Negative Negative 08/03/2023 11:47 AM [facility] OCCULT BLOOD,URINE Large(A) Negative 08/03/2023 11:47 AM [facility] NITRITE Negative Negative 08/03/2023 11:47 AM [facility] LEUKOCYTE ESTERASE Negative Negative 08/03/2023 11:47 AM [facility] Urine URINE SPECIMEN / Unknown Non-Blood / Unknown 08/03/2023 11:22 AM CDT 08/03/2023 11:28 AM CDT Camelia Keen NP URINE [facility] [address] [place] [address] * (ABNORMAL) BASIC METABOLIC PANEL (07/17/2023 4:11 PM CDT) Only the most recent of5 resultswithin the time period is included. SODIUM 146(H) 136 - 145 mmol/L 07/18/2023 1:02 AM [facility] POTASSIUM 3.8 3.5 - 5.1 mmol/L 07/18/2023 1:02 AM [facility] CHLORIDE 107 98 - 107 mmol/L 07/18/2023 1:02 AM [facility] CO2,TOTAL 31(H) 22 - 29 mmol/L 07/18/2023 1:02 AM [facility] ANION GAP 8 5 - 18 07/18/2023 1:02 AM [facility] GLUCOSE 92 70 - 99 mg/dL 07/18/2023 1:02 AM [facility] CALCIUM 9.3 8.8 - 10.2 mg/dL 07/18/2023 1:02 AM [facility] BUN 14 8 - 23 mg/dL 07/18/2023 1:02 AM [facility] CREATININE 0.94(H) 0.50 - 0.90 mg/dL 07/18/2023 1:02 AM [facility] BUN/CREAT RATIO 15 10 - 20 1:02 AM [facility] eGFR 70(L) >90 mL/min/1.7 3m2 07/18/2023 1:02 AM [facility] Comment:As of 2021, eG FR is calculated by the CKD-EPI creatinine equation without race adjustment. ??eGFR can be influenced by muscle mass, exercise, and diet. ??The reported eGFR is an estimation only and is only applicable if the renal function is stable. Blood BLOOD SPECIMEN / Unknown Venipuncture / Unknown 07/17/2023 4:11 PM CDT 07/17/2023 4:13 PM CDT Lavern Beavers MD CHEMISTRY [facility] [address] [place] [address], * EKG 12 LEAD (07/09/2023 8:21 AM CDT) Only the most recent of8 resultswithin the time period is included. Interpretation AV dual-paced rhythm with Premature ventricular complexes Abnormal ECG When compared with ECG of 08-JUL-2023 07:04, No significant change was found BEYOND NOW Ventricular Rate 62 BPM BEYOND NOW Atrial Rate 62 BPM BEYOND NOW P-R Interval 172 ms BEYOND NOW QRS Duration 104 ms BEYOND NOW QT 428 ms BEYOND NOW QTc 434 ms BEYOND NOW P [place] 47 degrees BEYOND NOW R [place] -36 degrees BEYOND NOW T [place] 129 degrees BEYOND NOW 07/09/2023 8:21 AM CDT 07/09/2023 5:15 PM CDT Tere Carballo CORPORATE HUMAN RESOURCES MANAGER EKG ORD Performing Organization Address City/[facility]/ZIP Co de Phone Number BEYOND NOW [place], [place] * POTASSIUM (07/09/2023 5:05 AM CDT) Only the most recent of12 resultswithin the time period is included. POTASSIUM 3.7 3.5 - 5.1 mmol/L 07/09/2023 5:35 AM CDT [facility] Blood BLOOD SPECIMEN / Unknown Venipuncture / Unknown 07/09/2023 5:05 AM CDT 07/09/2023 5:19 AM CDT Addy Davies MD CHEMISTRY [facility] SENDOUT INTERNAL ZIP [phone] [place] [address] * SCAN-CARDIAC STRIP (07/08/2023 8:02 PM CDT) Scanner OTHER * SCAN-CARDIAC STRIP (07/08/2023 8:00 AM CDT) Scanner OTHER * SCAN-CARDIAC STRIP (07/08/2023 12:00 AM CDT) Scanner OTHER * SCAN-CARDIAC STRIP (07/07/2023 3:36 PM CDT) Scanner OTHER * SCAN-CARDIAC STRIP (07/07/2023 7:30 AM CDT) Scanner OTHER * MAGNESIUM (07/07/2023 5:36 AM CDT) Only the most recent of18 resultswithin the time period is included. MAGNESIUM 2.0 1.6 - 2.4 mg/dL 07/07/2023 6:07 AM CDT [facility] Blood BLOOD SPECIMEN / Unknown Venipuncture / Unknown 07/07/2023 5:36 AM CDT 07/07/2023 5:40 AM CDT Ashwin Lincoln MD CHEMISTRY [facility] SENDOUT INTERNAL ZIP [phone] [place] [address] * SCAN-CARDIAC STRIP (07/06/2023 7:28 PM CDT) Scanner OTHER * SCAN-CARDIAC STRIP (07/06/2023 3:44 PM CDT) Scanner OTHER * ALT (SGPT) (07/06/2023 5:06 AM CDT) ALT (SGPT) 34 10 - 35 IU/L 07/06/2023 6:17 AM CDT [facility] Blood BLOOD SPECIMEN / Unknown Venipuncture / Unknown 07/06/2023 5:06 AM CDT 07/06/2023 5:51 AM CDT Tere Carballo NP CHEMISTRY [facility] SENDOUT [place] [phone] [place] [address] * AST (SGOT) (07/06/2023 5:06 AM CDT) AST (SGOT) 25 10 - 35 IU/L 07/06/2023 6:17 AM CDT [facility] Blood BLOOD SPECIMEN / Unknown Venipuncture / Unknown 07/06/2023 5:06 AM CDT 07/06/2023 5:51 AM CDT Tere Sheronalethea Carballo NP CHEMISTRY [facility] SENDOUT INTERNAL ZIP [phone] [place] [address] * SCAN-CARDIAC STRIP (07/06/2023 1:28 AM CDT) Scanner OTHER * SCAN-CARDIAC STRIP (07/05/2023 4:42 PM CDT) Scanner OTHER * XR VIDEO SWALLOW AND TREATMENT W SPEECH (07/05/2023 10:00 AM CDT) Anatomical Region Laterality Modality Esophagus Computed Radiogr aphy 07/05/2023 10:0 0 AM CDT Narrative 07/05/2023 10:24 AM CDT For Patients: As a result of the Cures Act, medical imaging exams and procedure reports are released immediately into your electronic medical record. You may view this report before your referring provider. If you have questions, please contact your health care provider. EXAM: XR VIDEO SWALLOW AND TREATMENT W SPEECH LOCATION: [facility] MEDICAL IMAGING DATE: 07/05/2023 INDICATION: Difficulty swallowing. COMPARISON: None. TECHNIQUE: Routine swallow study with speech pathology using multiple barium thicknesses. RADIATION DOSE: DAP 88.7 FINDINGS: Swallow study with Speech Pathology using multiple barium thicknesses. Patient had mild penetration with thin consistency barium by cup and mildly thick consistency barium by cup. Normal swallow of pudding consistency barium, peaches with pudding consistency barium and cookie with pudding consistency barium. No aspiration or penetration. Please see the separately dictated speech pathologist's notes for further details. Procedure Note Danna Bernabe MD - 07/05/2023 For Patients: As a result of the Cures Act, medical imagingexams and procedure reports are released immediately into your electronicmedical record. You may view this report before your referring provider.If you have questions, please contact your health care provider. EXAM: XR VIDEO SWALLOW AND TREATMENT W SPEECH LOCATION: [facility] MEDICAL IMAGING DATE: 07/05/2023 INDICATION: Difficulty swallowing. COMPARISON: None. TECHNIQUE: Routine swallow study with speech pathology using multiplebarium thicknesses. RADIATION DOSE: DAP 88.7 FINDINGS: Swallow study with Speech Pathology using multiple barium thicknesses. Patient had mild penetration with thin consistency barium by cup andmildly thick consistency barium by cup. Normal swallow of pudding consistency barium, peaches with puddingconsistency barium and cookie with pudding consistency barium. No aspiration or penetration. Please see the separately dictated speech pathologist's notes for furtherdetails. Darryl Piper MD FLUOROSCOPY * XR Chest PA and Lateral (07/05/2023 7:03 AM CDT) Anatomical Region Laterality Modality CHEST, THORAX, Lung, HEART Compu caty Radiography 07/05/2023 7:03 AM CDT Impressions 07/05/2023 7:37 AM CDT AICD has been placed in the anterior left chest wall with lead tips in the RA and two lead tips in the RV. No pneumothorax. Trace amount of pleural fluid and/or thickening inferior right hemithorax. A few strands of fibrosis and/or linear atelectasis in the lower lungs. Mild generalized cardiac enlargement with pulmonary vascularity within normal limits. Narrative 07/05/2023 7:37 AM CDT For Patients: As a result of the Cures Act, medical imaging exams and procedure reports are released immediately into your electronic medical record. You may view this report before your referring provider. If you have questions, please contact your health care provider. EXAM: XR CHEST 2 VIEWS PA AND LATERAL LOCATION: [facility] MEDICAL IMAGING DATE: 07/05/2023 INDICATION: Post pacemaker/post ICD implant. COMPARISON: 07/03/2023 Procedure Note Cholo Vanegas MD - 07/05/2023 For Patients: As a result of the Cures Act, medical imagingexams and procedure reports are released immediately into your electronicmedical record. You may view this report before your referring provider.If you have questions, please contact your health care provider. EXAM: XR CHEST 2 VIEWS PA AND LATERAL LOCATION: [facility] MEDICAL IMAGING DATE: 07/05/2023 INDICATION: Post pacemaker/post ICD implant. COMPARISON: 07/03/2023 IMPRESSION: AICD has been placed in the anterior left chest wall with lead tips in theRA and two lead tips in the RV. No pneumothorax. Trace amount of pleuralfluid and/or thickening inferior right hemithorax. A few strands offibrosis and/or linear atelectasis in the lower lungs. Mild generalizedcardiac enlargement with pulmonary vascularity within normal limits. Addy Davies MD GENERAL IMAGING * SCAN-CARDIAC STRIP (07/05/2023 12:05 AM CDT) Scanner OTHER * EP Procedure to be Performed (07/04/2023 5:32 PM CDT) Narrative Addy Davies MD - 07/04/2023 5:32 PM CDT Addy Davies MD ? 07/04/2023 ??5:56 PM [facility] Electrophysiology Laboratory Procedures: Dual-chamber ICD implantation Diagnoses: VF/VT arrest Cardiac sarcoidosis LBBB Parahisian PVCs Patient Information and Indications: Ms. Coronel is a 58 year old woman with a history of pulmonary and cardiac sarcoidosis admitted after cardiac arrest at home, defibrillated by EMS with ROSC then found to have complete heart block. She has a history of prior attempted catheter ablation of parahisian PVCs unsuccessful with transient LBBB that recovered. 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 Her LVEF is low normal (50%) and does not meet strict criteria for TOP LIFT TRIMMER. The procedure, indications, risks, benefits, and alternatives were discussed with the patient, who desired to proceed after questions were answered and informed consent was documented. Methods After informed consent was obtained, the patient was brought to the Electrophysiology Laboratory in a fasting state and was prepped and draped in sterile fashion. Prophylactic antibiotic was administered: vancomycin. Conscious sedation was administered with continuous oxygen saturation measurement and blood pressure measurement by the EP lab nursing staff. A left upper anatomy venogram was performed that documented the course and patency of the left axillary/subclavian venous system and absence of a left persistent superior vena cava. Venous access was performed under vascular ultrasound guidance with placement of three guidewires. Local anesthetic was delivered to the left pectoral region. An incision was made in the deltopectoral groove and carried down to the pre-pectoral fascia by blunt dissection and electrocautery. A subcutaneous pocket was created to accommodate the new device. Hemostasis required a lot of attention due to numerous small vessels within the subcutaneous fat. Surgiflo was placed in the pocket prior to skin closure. Vascular access to the axillary vein was obtained under ultrasound guidance x 3 with placement of 3 J wires. Over the first guide wire a SafeSheath was placed, through which a high voltage ICD lead was advanced under fluoroscopic guidance to the RV outflow tract. Initially, it was difficult to position the lead to the apex. One position was selected and looked apical/septal but then after advancing the helix and pulling the stylet back, looked less septal in MALAY and this position was not accepted. After a short period of difficulty, the C315 His sheath was placed into the RV and VILLA and MALAY ventriculograms were performed which was very useful in demonstrating a rightward rotation of the apex. The lead was then able to placed in the apical septal RV successfully in a position with good sensing and pacing (and actually intermittently a terminal r wave in V1). Next, a 3830 lead was placed through the C315 sheath and positioned in the interventricular septum in the RV and deployed. The first site had a reasonable initial paced morphology but failed to develop a terminal R wave in V1 despite advancement and impedance > 900 Ohms. The site had a very nice paced QRS morphology, but low impedance (only 700 Ohms). With additional advancement, impedance decreased and this was not felt to be a desirable location. The third site was successful with an impedance > 900-1000 Ohms and an excellent paced QRS morphology. Of note, during -EXPERT WITNESS and AP-EXPERT WITNESS, the terminal R wave was no longer present due to competitive rapid conduction over the RB branch. This improved with dramatically shortening the AV delay. Over the third guidewire, a 7Fr SafeSheath was placed, through which a permanent pace/sense lead was advanced under fluoroscopic guidance and positioned in the right atrial septum where a stable position with satisfactory sensing and pacing characteristics was obtained. Finally, the A lead was placed in the interatrial septum using a S5 delivery sheath. All leads were sutured to the underlying pectoralis fascia using 2 non-absorbable sutures around each lead's collar. High output pacing was performed during deep inspiration without causing diaphragmatic pacing. The leads were attached to the new pacemaker generator and placed within the pocket. ICD generator was sutured to the underlying muscle with Ethibond suture. The pocket was irrigated copiously with saline solution. The wound was closed in three layers using interrupted followed by continuous 2-0 Vicryl deep fascia and subdermal sutures and a 4-0 Vicryl subcuticular suture. Dermabond were placed over the incision and the wound was covered with a dry sterile dressing. Conscious sedation and appropriate monitoring for the procedure was provided by and performed by members of the EP staff. The patient tolerated the procedure well and left the lab in good condition. Anesthesia: conscious sedation Complications: None EBL: 50cc Fluoroscopy Time: see nursing report Medications: Documented in the detailed nursing procedure log. Implanted Device Data: Summary of Results: 1. DC ICD implantation with added LBBAP lead for conduction system pacing. Attendance Statement: I was present throughout and performed or directed all aspects of the procedure. I performed all radiologic interpretation. Addy Davies M.D. Cardiac Wire Loop Machine Operator [facility] Karri Melendez NP PHYSICIAN ASSISTANT PSYCHIATRY ORD * SCAN-CARDIAC STRIP (07/04/2023 4:16 PM CDT) Scanner OTHER * EP ICD (07/04/2023 12:38 PM CDT) Anatomical Region Laterality Modality X-Ray Angiograph y 07/04/2023 12:3 8 PM CDT Karri Melendez NP CV IMAGING * SCAN-CARDIAC STRIP (07/04/2023 7:12 AM CDT) Scanner OTHER * (ABNORMAL) CBC with Platelets no Differential (07/04/2023 5:44 AM CDT) Only the most recent of5 resultswithin the time period is included. WHITE BLOOD COUNT 9.4 4.5 - 11.0 thou/cu mm 07/04/2023 6:18 AM CDT [facility] RED BLOOD COUNT 4.14 4.00 - 5.20 mil/cu mm 07/04/2023 6:18 AM T [facility] HEMOGLOBIN 10.8(L) 12.0 - 16.0 g/dL 07/04/2023 6:18 AM T [facility] HEMATOCRIT 34.3 33.0 - 51.0 % 07/04/2023 6:18 AM T [facility] MCV 83 80 - 100 fL 07/04/2023 6:18 AM T [facility] MCH 26.1 26.0 - 34.0 pg 07/04/2023 6:18 AM T [facility] MCHC 31.5(L) 32.0 - 36.0 g/dL 07/04/2023 6:18 AM T [facility] RDW 15.2 11.5 - 15.5 % 07/04/2023 6:18 AM T [facility] PLATELET COUNT 189 140 - 440 thou/cu mm 07/04/2023 6:18 AM T [facility] MPV 9.8 6.5 - 11.0 fL 07/04/2023 6:18 AM T [facility] NRBC 0.0 % 07/04/2023 6:18 AM T [facility] ABS NRBC 0.0 thou /cu mm 07/04/2023 6:18 AM T [facility] Blood BLOOD SPECIMEN / Unknown Venipuncture / Unknown 07/04/2023 5:44 AM CDT 07/04/2023 6:13 AM CDT Karri Melendez NP HEMATOLOGY [facility] SENDOUT INTERNAL ZIP [phone] [place] [address] * SCAN-PACER (07/04/2023 12:00 AM CDT) Narrative 07/04/2023 12:00 AM CDT Ordered by an unspecified provider. Other Clinical Staff OTHER * CT SPINE CERVICAL WO (07/03/2023 10:25 [...] BRAIN WO, CT SPINE CERVICAL WO LOCATION: [facility] MEDICAL IMAGING DATE: 07/03/2023 INDICATION: Head trauma, [...] BRAIN WO, CT SPINE CERVICAL WO LOCATION: [facility] MEDICAL IMAGING DATE: 07/03/2023 INDICATION: Head trauma, [...] neural foraminal narrowingthroughout cervical spine. Iker Maldonado AZEB CT * CT HEAD BRAIN WO (07/03/2023 [...] BRAIN WO, CT SPINE CERVICAL WO LOCATION: [facility] MEDICAL IMAGING DATE: 07/03/2023 INDICATION: Head trauma, [...] BRAIN WO, CT SPINE CERVICAL WO LOCATION: [facility] MEDICAL IMAGING DATE: 07/03/2023 INDICATION: Head trauma, [...] EXAM: XR CHEST 1 VIEW PORTABLE LOCATION: [facility] MEDICAL IMAGING DATE: 07/03/2023 INDICATION: Eval Lung Infiltrate COMPARISON: 07/02/2023 Procedure Note Octavio White MD - 07/03/2023 For Patients: As a result of the Cures Act, medical imagingexams and procedure reports are released immediately into your electronicmedical record. You may view this report before your referring provider.If you have questions, please contact your health care provider. EXAM: XR CHEST 1 VIEW PORTABLE LOCATION: [facility] MEDICAL IMAGING DATE: 07/03/2023 INDICATION: Eval Lung Infiltrate COMPARISON: 07/02/2023 IMPRESSION: Heart is mildly enlarged, unchanged. Slight interstitial edema. Noeffusion. Mono Velasco DO GENERAL IMAGING * SCAN CORRESP-EKG RESULTS (07/03/2023 8:48 AM CDT) Narrative 07/03/2023 8:48 AM CDT Ordered by an unspecified provider. Other Clinical Staff OTHER * SCAN-CARDIAC STRIP (07/03/2023 7:45 AM CDT) Scanner OTHER * (ABNORMAL) GLUCOSE METER (07/03/2023 7:42 AM CDT) Only the most recent of22 resultswithin the time period is included. GLUCOSE METER 102(H) 65 - 100 mg/dL 07/03/2023 7:43 AM CDT [facility] Blood BLOOD SPECIMEN / Unknown 07/03/2023 7:42 AM CDT 07/03/2023 7:43 AM CDT Darryl Piper MD CHEMISTRY Performing Organization Address City/[facility]/ZIP Co de Phone Number [facility] SENDOUT INTERNAL ZIP [phone] [place] [address] * SCAN-CARDIAC STRIP (07/03/2023 1:00 AM CDT) Scanner OTHER * SCAN-CARDIAC STRIP (07/03/2023 12:00 AM CDT) Scanner OTHER * SCAN-CARDIAC STRIP (07/03/2023 12:00 AM CDT) Scanner OTHER * SCAN-CARDIAC STRIP (07/02/2023 4:07 PM CDT) Scanner OTHER * MRSA/SA PCR (07/02/2023 10:07 AM CDT) MRSA DNA PCR Negative Negative 07/02/2023 11:24 AM CDT [facility] STAPHYLOCOCCUS AUREUS PCR Negative Negative 07/02/2023 11:24 AM CDT [facility] Other SPECIMEN FROM INTERNAL NOSE / Unknown Non-Blood / Unknown 07/02/2023 10:07 AM CDT 07/02/2023 10:13 AM CDT Narrative [facility] - 07/02/2023 11:24 AM CDT Test result does not preclude MRSA or SA nasal colonization. Mono Velasco DO MICROBIOLOGY Performing Organization Address City/[facility]/ZIP Co de Phone Number [facility] SENDOUT INTERNAL ZIP [phone] [place] [address] * SPUTUM CULTURE, STAIN (07/02/2023 9:37 AM CDT) CULTURE Usual aida 07/04/2023 8:27 AM CDT [facility] GRAM STAIN 4+ PMNs 07/04/2023 8:27 AM CDT [facility] GRAM STAIN 4+ Gram Positive Bacilli 07/04/2023 8:27 AM CDT [facility] GRAM STAIN 2+ Gram Positive Cocci 07/04/2023 8:27 AM CDT [facility] GRAM STAIN No RBCs 07/04/2023 8:27 AM CDT [facility] GRAM STAIN No Epithelial cells 07/04/2023 8:27 AM CDT [facility] GRAM STAIN Gram stain performed by [place], [place] 07/04/2023 8:27 AM CDT [facility] Sputum SPECIMEN FROM ENDOTRACHEAL TUBE / Unknown Non-Blood / Unknown 07/02/2023 9:37 AM CDT 07/02/2023 9:37 AM CDT Mono Velasco DO MICROBIOLOGY [facility] [address] [place] [address], [facility] SENDOUT INTERNAL ZIP [phone] [place] [address] * SCAN-CARDIAC STRIP (07/02/2023 7:15 AM CDT) Scanner OTHER * (ABNORMAL) TRIGLYCERIDES propofol (07/02/2023 5:04 AM CDT) Only the most recent of2 resultswithin the time period is included. TRIGLYCERIDES 383(H) <150 mg/dL 07/02/2023 5:35 AM CDT [facility] PROVIDER ORDERED STATUS RANDOM 07/02/2023 5:35 AM CDT [facility] Blood BLOOD SPECIMEN / Unknown Non-Lab Venipuncture / Unknown 07/02/2023 5:04 AM CDT 07/02/2023 5:11 AM CDT [facility] SENDOUT INTERNAL ZIP [phone] [place] [address] * CK TOTAL propofol (07/02/2023 5:04 AM CDT) Only the most recent of2 resultswithin the time period is included. CK,TOTAL 45 26 - 192 IU/L 07/02/2023 5:35 AM CDT [facility] Blood BLOOD SPECIMEN / Unknown Non-Lab Venipuncture / Unknown 07/02/2023 5:04 AM CDT 07/02/2023 5:11 AM CDT [facility] Performing Organization Address City/[facility]/ZIP Co de Phone Number [facility] SENDOUT INTERNAL ZIP [phone] [place] [address] * BLOOD CULTURE (07/01/2023 10:32 PM CDT) Only the most recent of2 resultswithin the time period is included. CULTURE No Growth. 07/07/2023 11:05 AM CDT [facility] Blood BLOOD SPECIMEN / Unknown Butterfly / Unknown 07/01/2023 10:32 PM CDT 07/01/2023 10:35 PM CDT Karri Melendez NP [facility]BIOLOGY [facility] [address] [place] [address], * SCAN-CARDIAC STRIP (07/01/2023 8:11 PM CDT) Scanner OTHER * SCAN-CARDIAC STRIP (07/01/2023 2:37 PM CDT) Scanner OTHER * SCAN-CARDIAC STRIP (07/01/2023 7:42 AM CDT) Scanner OTHER * (ABNORMAL) PROCALCITONIN (07/01/2023 6:58 AM CDT) PROCALCITONIN 1.66(H) ng/ml 07/01/2023 7:34 AM CDT [facility] Blood BLOOD SPECIMEN / Unknown Non-Lab Venipuncture / Unknown 07/01/2023 6:58 AM CDT 07/01/2023 7:[address] [facility] LABORATORY - 07/01/2023 7:34 AM CDT Procalcitonin [...] < 2 ng/mL are obtained. Tuyet Farias CORPORATE HUMAN RESOURCES MANAGER SEND OUTS Performing Organization Address [facility]/ZIP Co de Phone Number [facility] SENDOUT [place]NAL ZIP [phone] [place] [address] * (ABNORMAL) HEPATIC FUNCTION PANEL (07/01/2023 4:43 AM CDT) Only the most recent of2 resultswithin the time period is included. ALBUMIN 3.4(L) 4.0 - 4.9 g/dL 07/01/2023 9:08 AM CDT [facility] PROTEIN,TOTAL 5.3(L) 6.0 - 8.0 g/dL 07/01/2023 9:08 AM T [facility] BILIRUBIN,TOTAL 0.4 0.0 - 1.2 mg/dL 07/01/2023 9:08 AM T [facility] BILIRUBIN,DIRECT <0.2 0.0 - 0.3 mg/dL 07/01/2023 9:08 AM T [facility] BILIRUBIN,INDIRE CT 07/01/2023 9:08 AM T [facility] Comment:Unable to calculate, Direct Bili <0.2 ALK PHOSPHATASE 68 35 - 104 IU/L 07/01/2023 9:08 AM T [facility] ALT (SGPT) 104(H) 10 - 35 IU/L 07/01/2023 9:08 AM T [facility] AST (SGOT) 45(H) 10 - 35 IU/L 07/01/2023 9:08 AM T [facility] Blood BLOOD SPECIMEN / Unknown Non-Lab Venipuncture / Unknown 07/01/2023 4:43 AM CDT 07/01/2023 4:51 AM CDT Mono Velasco DO CHEMISTRY Performing Organization Address [facility]/ZIP Co de Phone Number [facility] SENDOUT INTERNAL ZIP [phone] [place] [address] * SCAN-CARDIAC STRIP (06/30/2023 8:12 PM CDT) Scanner OTHER * NEURON SPECIFIC ENOLASE BLOOD (06/30/2023 1:40 PM CDT) Neuron-Specifi c Enolase, Serum 12.8 0.0 - 17.6 ng/mL 07/04/2023 2:09 PM CDT [facility] (CET) Comment: Neuron-specific Enolase performed by Novarra/Quidsi KRYPTOR methodology. Values obtained with different assay methods or kits cannot be used interchangeably. Blood BLOOD SPECIMEN / Unknown Arterial / Unknown 06/30/2023 1:40 PM CDT 06/30/2023 1:44 PM CDT Narrative [facility] ([facility]ET) - 07/04/2023 2:09 PM CDT Test(s) [id number] Enolase, Serum This test was developed and its performance characteristics determined by [facility]. It has not been cleared or approved by the Food and Drug Administration. Performed at: ??01 - [facility] [address] [place] [address] ??[id number] Contracting Manager: Kevin Benson MD, Phone: ??[phone] Suma Velez MD SEND OUTS [facility] ([facility]) [address] [place] [id number], * AMMONIA (06/30/2023 1:40 PM CDT) Pathologist [facility] AMMONIA 27 16 - 60 umol/L 06/30/2023 2:10 PM CDT [facility] Blood BLOOD SPECIMEN / Unknown Arterial / Unknown 06/30/2023 1:40 PM CDT 06/30/2023 1:44 PM CDT Narrative [facility] - 06/30/2023 2:10 PM CDT 1. ??Sulfasalazine and its metabolite Sulfapyridine at therapeutic concentrations may lead to falsely low results. 2. ??Temozolomide and its metabolite MTIC may lead to falsely elevated results, and its metabolite AIC may lead to falsely low results. Suma Velez MD CHEMISTRY [facility] SENDOUT INTERNAL ZIP [phone] [place] [address] * ECHO TTE COMPLETE W CONTRAST (06/30/2023 9:12 AM CDT) EJECTION FRACTION 50% PROSOLV Anatomical Region Laterality Modality Ultrasound 06/30/2023 8:27 AM CDT Narrative 06/30/2023 11:[place] [address] Main: [email or web address] ? Transthoracic Echo Report NANCI CORONEL Nohelia ID: [id number] Age: 58 : 1965 Ordering Provider: LONNY MAHAN Exam Date: 06/30/2023 08:27 Gender: F Account Support Rep: R Height: 67 in BSA: 2.15 m?? Weight: 231 lbs BMI: 36.2 kg/m?? HR: 81 Location: Inpatient (Portable) Rhythm: Artificially Paced Procedure Components: 2D imaging with contrast, Color Doppler, Spectral Doppler Indications: Cardiac Arrest Technical Quality: Fair Contrast: Definity Constrast Dose (ml): 0.3 [facility]#: [id number] Final Conclusion 1. Normal left ventricular chamber [...] Aortic Root ZScore: 2.60 Enriqueta Sanchez MD [facility] Accredited Site (Electronically Signed) Final Date: 30 Jun 2023 11:34 ICD-10 Codes: 427.5 Procedure Note Enriqueta Sanchez MD - 06/30/2023 [place] [address] Main: [email or web address] Transthoracic Echo Report NANCI CORONEL Nohelia ID: [id number] Age: 58 : 1965 Ordering Provider:LONNY MAHAN Exam Date: 06/30/2023 08:27 Gender: F Account Support Rep: IRMA Height: 67 in BSA: 2.15 m?? Weight: 231 lbs BMI: 36.2 kg/m?? HR: 81 Location: Inpatient (Portable) Rhythm: Artificially Paced Procedure Components: 2D imaging with contrast, Color Doppler, SpectralDoppler Indications: Cardiac Arrest Technical Quality: Fair Contrast: Definity Constrast Dose (ml): 0.3 [facility]#: [id number] Final Conclusion 1. Normal left ventricular chamber [...] Aortic Root ZScore: 2.60 Enriqueta Sanchez MD [facility] Accredited Site (Electronically Signed) Final Date: 30 Jun 2023 11:34 ICD-10 Codes: 427.5 Lonny Mahan MD ECHO ORD * SCAN-CARDIAC STRIP (06/30/2023 8:00 AM CDT) Scanner OTHER * CWS PATH REVIEW HEMATOLOGY (06/30/2023 4:06 AM CDT) PATH COMMENT comment 07/04/2023 10:25 AM CDT [facility] Comment: Reviewed by Dariana Medel MT, MS ([facility]) on 07/03/2023 This is an appended report. ??These results have been appended to a previously final verified report. Blood BLOOD SPECIMEN / Unknown Non-Lab Venipuncture / Unknown 06/30/2023 4:06 AM CDT 06/30/2023 4:18 AM CDT Raffi Tucker DO LABORATORY [facility] SENDOUT INTERNAL ZIP [phone] [place] [address] * SCAN-CARDIAC STRIP (06/30/2023 3:08 AM CDT) Scanner OTHER * SCAN-CARDIAC STRIP (06/30/2023 12:28 AM CDT) Scanner OTHER * (ABNORMAL) ARTERIAL BLOOD GAS (06/30/2023 12:09 AM CDT) PH, ARTERIAL 7.31(L) 7.35 - 7.45 06/30/2023 12:17 AM CDT [facility] PCO2, ARTERIAL 43 32 - 45 mmHg 06/30/2023 12:17 AM CDT [facility] PO2, ARTERIAL 105 83 - 108 mmHg 06/30/2023 12:17 AM CDT [facility] HCO3, ARTERIAL 22 21 - 28 mmol/L 06/30/2023 12:17 AM CDT [facility] BASE EXCESS, ARTERIAL -4.5(L) -2.0 - 3.0 06/30/2023 12:17 AM CDT [facility] O2 SATURATION, ARTERIAL 99(H) 94 - 98 % 06/30/2023 12:17 AM CDT [facility] INSPIRED O2 06/30/2023 12:17 AM CDT [facility] Comment:Unit of Measure: Lit ers (L) if <=20; Percent (%) if >20 PATIENT TEMPERATURE 37.0 Degrees C 06/30/2023 12:17 AM CDT [facility] Blood ARTERIAL BLOOD SPECIMEN / Unknown Non-Lab Venipuncture / Unknown 06/30/2023 12:09 AM CDT 06/30/2023 12:14 AM CDT Anh Kendrick DO CHEMISTRY [facility] SENDOUT INTERNAL ZIP [phone] [place] [address] * XR ABDOMEN 1 VIEW PORTABLE (06/29/2023 [...] EXAM: XR ABDOMEN 1 VIEW PORTABLE LOCATION: [facility] MEDICAL IMAGING DATE: 06/29/2023 INDICATION: Tube placement COMPARISON: CT 09/21/2022 Procedure Note Humphrey Borrego MD - 06/29/2023 For Patients: As a result of the Cures Act, medical imagingexams and procedure reports are released immediately into your electronicmedical record. You may view this report before your referring provider.If you have questions, please contact your health care provider. EXAM: XR ABDOMEN 1 VIEW PORTABLE LOCATION: [facility] MEDICAL IMAGING DATE: 06/29/2023 INDICATION: Tube placement [...] 7.30(L) 7.35 - 7.45 07/01/2023 7:03 AM [facility] PCO2, ARTERIAL 41 32 - 45 mmHg 07/01/2023 7:03 AM [facility] PO2, ARTERIAL 67(L) 83 - 108 mmHg 07/01/2023 7:03 AM [facility] HCO3, ARTERIAL 21 21 - 28 mmol/L 07/01/2023 7:03 AM [facility] BASE EXCESS, ARTERIAL -6.0(L) -2.0 - 3.0 07/01/2023 7:03 AM [facility] O2 SATURATION, ARTERIAL 91(L) 94 - 98 % 07/01/2023 7:03 AM [facility] SODIUM, POCT 07/01/2023 7:03 AM [facility] Comment:Unable to determine. POTASSIUM, POCT 7:03 AM [facility] Comment:Unable to determine. INSPIRED O2,ISTAT 07/01/2023 7:03 AM [facility] Comment:Not given PATIENT TEMPERATURE 37.0 Degrees C 07/01/2023 7:03 AM [facility] WENDY'S TEST Normal 07/01/2023 7:03 AM [facility] SAMPLE TYPE,ISTAT BLOOD GAS ARTERIAL 07/01/2023 7:03 AM CDT [facility] Blood BLOOD SPECIMEN / Unknown 06/29/2023 9:46 PM CDT 07/01/2023 7:03 AM CDT Anh Kendrick DO CHEMISTRY Performing Organization Address City/[facility]/ZIP Co de Phone Number [facility] SENDOUT INTERNAL ZIP [phone] [place] [address] * (ABNORMAL) ACTIVATED CLOTTING TIME [id number] ACT (06/29/2023 9:21 PM CDT) ACTIVATED CLOTTING TIME, POCT 139(H) 74 - 125 sec 07/01/2023 7:03 AM CDT [facility] Blood BLOOD SPECIMEN / Unknown 06/29/2023 9:21 PM CDT 07/01/2023 7:03 AM CDT Kristina SHIRLEY HEMATOLOGY [facility] SENDOUT INTERNAL ZIP [phone] [place] [address] * CVL CORONARY ANGIOGRAM POSS PCI (06/29/2023 9:12 PM CDT) Anatomical Region Laterality Modality X-Ray Angiograph y 06/29/2023 9:12 PM CDT Narrative Transcriptions Lonny Mahan MD - 06/29/2023 11:14 PM CDT [facility] Cardiac Catheterization Report Name: NANCI CORONEL Event Date: 06/29/2023 21:12 Excellian ID #: [id number] SURINDER #: [id number] Diagnostic Physician: LONNY MAHAN [facility] Interventional Physician: LONNY MAHAN [facility] Referring Physician: Primary Care Physician: LAVERN BEAVERS Date: 1965 Gender: Female Age: 58 Summary/Conclusions PRESENTATION / INDICATIONS * Out of hospital cardiac arrest * Symptomatic complete heart block * Known cardiac sarcoid * Emergent Intensive Care Nurse activation VASCULAR ACCESS * Using ultrasound guidance [...] of complete heartblock upon arrival to the Intensive Care Nurse. RECOMMENDATIONS & PLAN * No angiographically significant coronary artery disease * Successful placement of a transvenous temporary pacemaker into the RVapex. Rate set at 80 bpm at 5 mA. * Transfer to the ICU * Initiate high-dose steroids * Echocardiogram in a.m. * Anticipate implantation of TOP LIFT TRIMMER D device * Results discussed with inpatient cardiology and ICU teams Consent & [place] Protocol The risks, benefits, and alternatives of the procedure were discussed withthe patient and written informed consent was obtained. [place] protocol was followed. TIME OUT conducted just prior tostarting procedure confirmed patient identity, site/side, procedure,patient position, and availability of correct equipment and implants (ifapplicable). Staff Name Title Lonny Mahan Geospatial Systems Integrator Verónica Meza RN Shante Jackson RN Nurse Joanne Rasmussen RTR Marlyn Pino CVT Monitor Procedures ? US Guided Access [...] min Cumulative Air Kerma: 556 mGy DAP: 33938 mGy/cm2 Contrast: Visipaque 320, 40 ml Physiologic Data Actual VO2: 273.15 Weight: 102.1 kg BSA: 2.12 m2 Vascular Access Time Access Sheath Size 21:14 Percutaneous Puncture to RFA 21:15 Percutaneous Puncture to RFV Complications ? No Complications Medications Ordered and Administered Start Time Stop Time Medication Dose Units Route Ordered By Given By 21:07 21:42 Dopamine (New Bag) 5 mcg per [...] healthcare professional providing the sedation ends personal hbhgxhdaoyzump-oh-fvoc time with the patient. The medications listed above were verbally ordered by me and read back tome as documented above. Refer to the procedure log report for additional case details. electronically signed on 06/29/2023 11:14:04 PM with status of Final Lonny Mahan MD [address], [place] [address] [place] [address] (p) [phone](f) Images Snapshot: 3 Lonny Mahan MD CV IMAGING * (ABNORMAL) TROPONIN T (HS) ONE TIME (06/29/2023 9:00 PM CDT) TROPONIN T HS 298(H) 6-10 ng/L ng/L 06/29/2023 10:16 PM CDT [facility] Blood BLOOD SPECIMEN / Unknown Non-Lab Venipuncture / Unknown 06/29/2023 9:00 PM CDT 06/29/2023 9:[address] [facility] LABORATORY - 06/29/2023 10:16 PM CDT [id number] [...] department patient population. Lonny Mahan MD CHEMISTRY [facility] SENDOUT INTERNAL ZIP [phone] [place] [address] * EXTRA TUBE GOLD/SST (06/29/2023 9:00 PM CDT) Blood BLOOD SPECIMEN / Unknown Extra Tube / Unknown 06/29/2023 9:00 PM CDT 06/29/2023 9:46 PM CDT Doctor Unknown LABORATORY Performing Organization Address [facility]/ZIP Co de Phone Number [facility] SENDOUT INTERNAL ZIP [phone] [place] [address] * TSH (06/29/2023 9:00 PM CDT) TSH 1.61 0.27 - 4.20 uIU/mL 06/29/2023 10:36 PM CDT [facility] Blood BLOOD SPECIMEN / Unknown Non-Lab Venipuncture / Unknown 06/29/2023 9:00 PM CDT 06/29/2023 9:46 PM CDT Narrative [facility] - 06/29/2023 10:36 PM CDT In Adults, TSH values between 5.00 and 10.00 uIU/ml do not necessarily indicate the presence of Hypothyroidism. Correlation with clinical findings such as presence of goiter and/or Thyroperoxidase (TPO) Antibody may be helpful. For more information please refer to RHONDA 2004; 291: 228-238. Anh Kendrick DO CHEMISTRY Performing Organization Address City/[facility]/ZIP Co de Phone Number [facility] SENDOUT INTERNAL ZIP [phone] [place] [address] * PROTIME-INR (06/29/2023 9:00 PM CDT) INR 1.1 <1.3 06/29/2023 9:57 PM CDT [facility] PROTIME 12.2 10.3 - 12.3 sec 06/29/2023 9:57 PM CDT [facility] Blood BLOOD SPECIMEN / Unknown Non-Lab Venipuncture / Unknown 06/29/2023 9:00 PM CDT 06/29/2023 9:46 PM CDT Narrative [facility] - 06/29/2023 9:57 PM CDT ?Therapeutic [...] is on UFH. Lonny Mahan MD HEMATOLOGY [facility] SENDOUT INTERNAL ZIP [phone] [place] [address] * SCAN-CARDIAC STRIP (06/29/2023 12:00 AM CDT) Narrative 06/29/2023 12:00 AM CDT Ordered by an unspecified provider. Other Clinical Staff OTHER * SCAN-CARDIAC STRIP (06/29/2023 12:00 AM CDT) Narrative 06/29/2023 12:00 AM CDT Ordered by an unspecified provider. Other Clinical Staff OTHER * SCAN-RADIOLOGY REPORT (06/29/2023 12:00 AM CDT) Anatomical Region Laterality Modality Other Scanner OTHER * XR MAMMO GHAZALA BILAT SCREEN [...] care provider. XR MAMMO GHAZALA BILAT SCREEN [[id number]] CLINICAL HISTORY: ??This is an asymptomatic 57 [...] CHOL/HDL RATIO (05/28/2022 10:50 AM CDT) Pathologist [facility] Cholesterol, Total 194 100 - 199 mg/dL 05/30/2022 9:[address] [facility] ([facility]) Triglycerides 120 0 - 149 mg/dL 05/30/2022 9:[address] [facility] ([facility]) HDL Cholesterol 52 >39 mg/dL 9:[address] [facility] ([facility]) VLDL Cholesterol Chase 21 5 - 40 mg/dL 05/30/2022 9:[address] [facility] ([facility]) LDL Chol Calc (NIH) 121(H) 0 - 99 mg/dL 05/30/2022 9:[address] [facility] ([facility]) T. Chol/HDL Ratio 3.7 0.0 - 4.4 ratio 05/30/2022 9:[address] [facility] ([facility]ET) Comment: ?T. Chol/HDL Ratio ?Men ??Women ?1/2 Avg.Risk ??3.4 ?3.3 ?Avg.Risk ??5.0 ?4.4 ? 2X Avg.Risk ??9.6 ?7.1 ? 3X Avg.Risk 23.4 ?? 11.0 Blood BLOOD SPECIMEN / Unknown Venipuncture / Unknown 05/28/2022 10:50 AM CDT 05/28/2022 10:51 AM CDT Narrative [facility] ([facility]) - 05/30/2022 9:10 AM CDT Performed at: ??01 - [facility] [address] [place], [place] ??[id number] Contracting Manager: Trell Calderon MD, Phone: ??[phone] Gayathri GREENE SEND OUTS [facility] ([facility]) [facility] [place] [address], * ANTI HCV (05/22/2021 2:25 PM CDT) HEPATITIS C ANTIBODY Non-React milton Non-React milton 05/22/2021 11:58 PM CDT [facility] TRAL LABORATORY Comment:Antibodies to HCV no t detected; does not exclude the possibility of exposure to HCV. Blood BLOOD SPECIMEN / Unknown Venipuncture / Unknown 05/22/2021 2:25 PM CDT 05/22/2021 2:28 PM CDT Gayathri GREENE SEND OUTS [facility] [address] [place] [address], * HPV HIGH RISK (05/22/2021 2:02 PM CDT) TYPE 16 Negative Negative 05/24/2021 5:38 PM CDT [facility] TRAL LABORATORY TYPE 18 Negative Negative 05/24/2021 5:38 PM CDT [facility] TRAL LABORATORY OTHER HIGH RISK TYPES Negative Negative 05/24/2021 5:38 PM CDT [facility] TRA LABORATORY Other (Cervical) Non-Blood / Unknown 05/22/2021 2:02 PM CDT 05/23/2021 8:32 AM CDT Narrative [facility] - 05/24/2021 5:38 PM CDT HPV types 16, 18, 31, 33, 35, 39, 45, 51, 52, 56, 58, 59, 66 and 68 DNA were undetectable or below the pre-set threshold. Methodology: Coleen Abel 4800 HPV Test Gayathri GREENE MICROBIOLOGY Performing Organization Address City/[facility]/ZIP Co de Phone Number [facility] [employer] [facility] ResourcesBENJAM[facility] [address] [place] [address], from Last 3 Months or Most Recently Relevant to Health Maintenance Advance Directives Documents on File Type Date Recorded Patient Heel Seat Fitter Machine Expl anation POLST 07/19/2023 Healthcare Directive 02/20/2022 invalid , missing page 02/20/2022 * Full Code (Latest Code Status on File) Date Activated Date Inactivated Comments 06/29/2023 10:12 PM 07/09/2023 6:12 PM Question Answer Comments Code Status Discussion: Reviewed Preferences * Full Code Date Activated Date Inactivated Comments 02/21/2022 11:30 AM 02/22/2022 12:12 PM Question Answer Comments Code Status Discussion: Reviewed Preferences Care Teams 3Rd Mate Relationship Specialty Start Date End Date Lavern Beavers MD [address] [place] [address] PCP - General Family Practice 06/17/23
== END 2023-08-06 20:56 | disposition home or self-care (01) ==
PROVIDERS: PCP Family Medicine; Visit Provider Nurse Practitioner
DX: G47.33 Obstructive sleep apnea (adult) (pediatric) (principal)
CPT/HCPCS: 95810

== ENCOUNTER 2023-08-14 00:06 | Emergency (ER) | payer BC, SELFPAY ==
[2023-08-14] VITALS (10 sets, daily range): BP systolic 122–158; BP diastolic 63–90; PULSE 60; RESP 16–20; O2SAT 92–97; BMI 34.7
--- NOTE | 2023-08-14 | CRLHL7_ITS ---
For Patients: As a result of the Century Cures Act, medical imaging exams and procedure reports are released immediately into your electronic medical record. You may view this report before your referring provider. If you have questions, please contact your health care provider. Indication: Neck itching, bilateral supraclavicular swelling Technique: CT of the neck following 100 mL Isovue 370 IV contrast. Comparison: None Findings: Brain and orbits: No acute abnormality appreciated. Sinuses and mastoids: Mild sinus disease. Air Pollution Inspector spaces: No significant abnormality appreciated. Oral cavity, floor of mouth, and base of tongue: No significant abnormality appreciated. Pharynx: No significant abnormality appreciated. Larynx/hypopharynx: No significant abnormality appreciated. Submandibular and parotid spaces: No significant abnormality appreciated. Thyroid space: No significant abnormality appreciated. Lymph nodes: No gross lymphadenopathy appreciated. Vascular structures: Non flow-limiting atherosclerosis. Bones: Mild degenerative changes. Upper chest: Better assessed on dedicated CT of the chest. Impression: No acute abnormality within the neck. Please see separate CT of the chest for findings below the thoracic inlet. Please note that all CT scans at this facility use dose modulation, iterative reconstruction, and/or weight-based dosing when appropriate to reduce radiation dose to as low as reasonably achievable. Dictated by Jeff Calero MD @ 08/14/2023 2:16:22 AM (Electronically Signed)
--- NOTE | 2023-08-14 00:13 | ED.GENADULT ---
HPI - General Adult General Time Seen by Provider: 00:13 Date Seen: 08/14/23 Chief complaint: Allergic Reaction Stated complaint: Allergic reaction--swelling around neck Time Seen by Provider: 08/14/23 00:12 Source: patient, RN notes reviewed and old records reviewed Mode of arrival: ambulatory Limitations: no limitations History of Present Illness HPI narrative: 58-year-old female who presents today with neck swelling after taking methotrexate injection night. Patient has a history of sarcoidosis and is being transition from CellCept to methotrexate. Tonight after having her shot she noticed swelling above her clavicles on both sides and little bit of itching in her neck. Denies cough, shortness of breath, tongue or lip swelling. No chest pain or shortness of breath. Denies recent falls, injuries, or vomiting. Related Data Home Medications ?Medication ?Instructions ?Recorded ?Confirmed mometasone-formoterol HFA 50 mcg-5 2 inh inhalation BID 09/29/21 02/02/23 mcg/actuation aerosol inhaler (Dulera) nortriptyline 10 mg capsule 20 mg PO HS 09/29/21 02/02/23 quetiapine 25 mg tablet 25 mg PO HS 09/29/21 02/02/23 mycophenolate mofetil 250 mg 250 mg PO BID 01/14/23 02/02/23 capsule mycophenolate mofetil 500 mg tablet 1,000 mg PO BID 01/14/23 02/02/23 albuterol sulfate 90 mcg/actuation 2 inh inhalation Q4H PRN 02/02/23 02/02/23 aerosol inhaler dextromethorphan-guaifenesin 30 1 tab PO BID PRN 02/02/23 02/02/23 mg-600 mg tablet extended [id number] hr (Mucus DM) metronidazole 0.75 % topical cream 1 applic topical .1-2X/DAY 02/02/23 02/02/23 Previous Rx's ?Medication ?Instructions ?Recorded benzonatate 200 mg capsule 200 mg PO TID PRN cough #30 caps 01/29/23 codeine 10 mg-guaifenesin 100 mg/5 5 - 10 ml PO Q6H PRN cough #473 mL 01/29/23 mL oral liquid nystatin 100,000 unit/mL oral 5 ml PO QID 2 weeks #280 mL 02/03/23 suspension prednisone 20 mg tablet See Rx Instructions .Route 02/03/23 .COMPLEX #12 tabs hydrocodone 5 mg-acetaminophen 325 1 tab PO Q4-6H PRN pain #15 tabs 03/06/23 mg tablet ketorolac 10 mg tablet 10 mg PO Q8H 5 days #15 tabs 03/06/23 ondansetron HCl 4 mg tablet 4 mg PO Q6H #10 tabs 03/06/23 Allergies Allergy/AdvReac Type Severity Reaction Status Date / Time Sulfa (Sulfonamide Allergy Unknown Nausea,Vomi Unverified 08/14/23 02:20 Antibiotics) [facility] Medical History Ventricular trigeminy ?I49.8 - Other specified cardiac arrhythmias (ICD-10) Mitral valve regurgitation ?I34.0 - Nonrheumatic mitral (valve) insufficiency (ICD-10) Depression ?F32.A - Depression, unspecified (ICD-10) Anxiety ?F41.9 - Anxiety disorder, unspecified (ICD-10) Sarcoidosis ?D86.9 - Sarcoidosis, unspecified (ICD-10) 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 - Immunodeficiency due to drugs (ICD-10) ?Z79.899 - Other bed bug exterminator (current) drug therapy (ICD-10) Social History What is your current living situation?: I presently have a place to live Problems where you live: no known problems Problems where you live details: n/a In the past 12 months, utilities in danger of being shut off: no In past 12 months, lack of transportation kept you from medical appts, meetings, work, or getting things needed for daily living: no In the past 12 mos, have been you worried that your food would run out before you had money to buy more?: never true In the past 12 mos, the food you bought just didn't last and you didn't have money to buy more?: never true Highest level of school completed/degree received: Master's degree Smoking Status: Former smoker Do you use any of these nicotine containing products: None Nicotine containing products detail: half pack a day for 10 years Second hand tobacco smoke exposure: No How often do you have a drink containing alcohol: never How often do you have six or more drinks on one occasion: Never AUDIT-C Alcohol total score: 0 Non-prescribed substance use: denies use Caffeine: Yes (one 16 oz coke daily) How often does anyone, including family, friends and others, physically hurt you: never How often does anyone, including family, friends and others, insult or talk down to you: never How often does anyone, including family, friends and others, threaten you with harm: never How often does anyone, including family, friends and others, scream or curse at you: never service: Yes Exam Narrative: Exam Narrative: General: Well-developed and well-nourished, no acute distress Head: Atraumatic and normocephalic Eyes: Pupils are equal reactive, extraocular motions intact, conjunctiva clear ENT: External nose and ears are normal, posterior pharynx without erythema or exudate Neck: No midline cervical tenderness, full spontaneous range of motion the neck, trachea midline, no adenopathy Heart: Regular rate and rhythm no murmurs or thrills Lungs: Clear to auscultation bilaterally without wheezes or crackles. Prominence of the supraclavicular fat pad bilaterally with trace subcutaneous crepitus Abdomen: Soft, nontender, nondistended with active bowel sounds Musculoskeletal: No tenderness, deformity, or edema Neurologic: Awake, alert, and oriented x3, no gross focal neurologic deficits, cranial nerves intact as tested Psych: Mood and affect are appropriate Skin: No rashes Const: Vital Signs, click to edit/add: Vital Signs - 24 hr 08/13/ 00:13 Pulse Rate [Pulse Oximeter] 60 Respiratory Rate 20 Blood Pressure [Le ft Upper Arm] 158/74 H Pulse Oximetry 97 Oxygen Delivery Me thod Room Air Course Course ED Course: Patient seen examined, reviewed most recent emergency department visit from June 28 when patient had a V-tach arrest in had a pacemaker placed but no stents. She has history of sarcoidosis along with anxiety, depression, and mitral valve regurgitation. Patient presents today with some swelling above her clavicles after taking methotrexate shots tonight. No breathing or swallowing difficulty. Denies cough or shortness of breath. On exam here, she is oddly stable, does have prominence of the supraclavicular fat pads bilaterally with some subcutaneous crepitus concerning for subcutaneous air. No history of vomiting to suggest [place] tear or pneumomediastinum, no coughing or shortness of breath to suggest pneumothorax or hemothorax. CT scan of the chest is ordered Reevaluation(s) Time of Reevaluation #1: 02:09 Reevaluation #1: CT scan of the chest independently interpreted by me does not demonstrate any acute pneumothorax or hemothorax. Reviewed radiology interpretation which demonstrates subacute rib fractures and sternal fracture along with spiculated mass in the right lower lobe concerning for malignancy. Time of Reevaluation #2: 02:49 Reevaluation #2: Patient recheck, we reviewed imaging results including discussing the mass in the lung. Patient gets most of her care down at [place] [facility], images will be pushed down there I did call the transfer center at [facility] to let them know that images were being pushed and would need to be reviewed. Vital Signs Vital signs: Initial Vital Signs Temperature Source Temporal Artery Scan 08/14/23 00:13 Pulse Rate 60 08/14/23 00:13 Respiratory Rate 20 08/14/23 00:13 Blood Pressure 158/74 H 08/14/23 00:13 Blood Pressure Mean 102 08/14/23 00:13 Pulse Oximetry 97 08/14/23 00:13 Oxygen Delivery Method Room Air 08/14/23 00:13 Vital Signs Pulse Rate 60 08/14/23 00:13 Respiratory Rate 20 08/14/23 00:13 Blood Pressure 158/74 H 08/14/23 00:13 Pulse Oximetry 97 08/14/23 00:13 Oxygen Delivery Method Room Air 08/14/23 00:13 Pulse Rate 60 08/14/23 00:13 Respiratory Rate 20 08/14/23 00:13 Blood Pressure 158/74 H 08/14/23 00:13 Pulse Oximetry 97 08/14/23 00:13 Oxygen Delivery Method Room Air 08/14/23 00:13 Medical Decision Making Lab Data Labs: Lab Results 08/14/23 Range/Units 00:25 POC Creatinine 1.2 (0.6-1.3) mg/dl Discharge Plan Discharge Clinical Impression: Sarcoidosis, Immunosuppression due to drug therapy, Mass of right lung Prescriptions: No Action mycophenolate mofetil 500 mg tablet 1,000 mg PO BID mycophenolate mofetil 250 mg capsule 250 mg PO BID Rx Instructions: WITH 1000 MG TO EQUAL 1250 MG benzonatate 200 mg capsule 200 mg PO TID PRN (Reason: cough) Qty: 30 1RF codeine-guaifenesin 10-100 mg/5 mL liquid 5 - 10 ml PO Q6H PRN (Reason: cough) Qty: 473 0RF nortriptyline 10 mg capsule 20 mg PO HS quetiapine 25 mg tablet 25 mg PO HS Dulera 50-5 mcg/actuation HFA aerosol inhaler 2 inh inhalation BID Mucus DM 30-600 mg tablet extended release 12 hr 1 tab PO BID PRN metronidazole 0.75 % cream 1 applic topical .1-2X/DAY Rx Instructions: TO FACE albuterol sulfate 90 mcg/actuation HFA aerosol inhaler 2 inh inhalation Q4H PRN prednisone 20 mg Tablet See Rx Instructions .ROUTE .COMPLEX Qty: 12 0RF Rx Instructions: Take 2 tabs daily for 2 days, then 1 tab daily for 5 days, then 1/2 tab daily for 5 days, then stop. nystatin 100,000 unit/mL suspension 5 ml PO QID 14 Days Qty: 280 0RF Rx Instructions: swish and swallow hydrocodone-acetaminophen 5-325 mg tablet 1 tab PO Q4-6H PRN (Reason: pain) Qty: 15 0RF ondansetron HCl 4 mg tablet 4 mg PO Q6H Qty: 10 0RF ketorolac 10 mg tablet 10 mg PO Q8H 5 Days Qty: 15 0RF Follow Up/Referrals: Lavern Beavers MD [Primary Care Provider] -
--- NOTE | 2023-08-14 00:24 | CRLHL7_ITS ---
For Patients: As a result of the Century Cures Act, medical imaging exams and procedure reports are released immediately into your electronic medical record. You may view this report before your referring provider. If you have questions, please contact your health care provider. Indication: Neck itching, bilateral supraclavicular swelling Technique: CT of the chest following 100 mL Isovue 370 IV contrast. Comparison: None Findings: Lungs: There is a spiculated mass measuring 3.3 x 2.5 centimeters on the right lower lobe, no prior examination available for comparison. Scattered areas of atelectasis and scarring. No consolidation. No pneumothorax. Mediastinum: No acute abnormality appreciated. Left chest pacer are present. Calcified coronary arterial atherosclerosis. Mild cardiomegaly. Lymph nodes: Right paratracheal node measures 10 millimeters. Upper abdomen: No acute abnormality appreciated. Soft tissues: No acute abnormality appreciated. Bones: Subacute fractures of the sternum and multiple ribs. No acute abnormality appreciated. Impression: 1. Spiculated mass measuring 3.3 centimeters in the right lower lobe common no prior examination available for comparison. The appearance is highly concerning for malignancy. If no prior CT is available for comparison, further evaluation with [address], PET-CT, or tissue sampling would be recommended for further evaluation. 2. Chronic rapid sternum fractures. 3. No other significant abnormality appreciated. Please note that all CT scans at this facility use dose modulation, iterative reconstruction, and/or weight-based dosing when appropriate to reduce radiation dose to as low as reasonably achievable. Dictated by Jeff Calero MD @ 08/14/2023 2:07:30 AM (Electronically Signed)
[2023-08-14 00:30] LABS: Creatinine, Point-of-Care* 1.2 mg/dl (0.6-1.3)
--- OUTSIDE RECORDS SUMMARY | 2023-08-14 01:19 | XMS_ITS | Clinical Summary ---
Author Organization [facility] Address [address] [place] [id number] Care Team Providers Care Supply Chain Design Manager Name Role Phone Unavailable Primary Care Provider Unavailabl e Source Comments Patient records contain information from all sites at [facility]. For routine questions regarding patient records, call [phone] during business hours, M-F 8:00 AM - 5:00 PM Central Time. Record requests for emergency care only can be directed to [phone] at any time.[facility] Allergies Active Allergy Reactions Criticality Noted Date Comments Sulfa (Sulfonamide Antibiotics) Nausea And Vomiting 01/30/2021 Medications Medication Sig Dispensed Refills Start Date End Date Status albuterol 90 mcg/actuation inhaler Inhale 2 puffs every 6 (six) hours as needed. 12/13/2020 Active mometasone-formo terol (Dulera) 200-5 mcg/actuation inhaler Inhale 2 puffs 2 (two) times a day. 09/09/2021 Active nortriptyline (PAMELOR) 10 mg capsule Take 20 mg by mouth at bedtime. 05/22/2021 Active QUEtiapine (SEROquel) 25 mg tablet Take 25 mg by mouth at bedtime. 05/22/2021 Active metroNIDAZOLE (METROCREAM) 0.75 % cream Apply 1 Application topically daily. 06/05/2022 Active predniSONE (DELTASONE) 5 mg tabletIndication s:Sarcoidosis,Mo [...] daily for 14 days. 574 tablet 06/21/2023 12/06/19 24 Active methotrexate 25 mg/mL injectionIndicat ions:Sarcoidosis ,Monitoring For Therapeutic Drug Therapy,Osteopen ia Inject 0.4 mL (10 mg total) under the skin once a week for 14 days, THEN 0.6 mL (15 mg total) once a week for 14 days, THEN 0.8 mL (20 mg total) once a week. Remember labs. 18.8 mL 06/21/2023 12/16/19 Active needle, disp, 27 gauge 27 gauge x 1/2 needleIndication s:Sarcoidosis,Mo nitoring For Therapeutic Drug Therapy,Osteopen ia For methotrexate injections. 100 each 06/21/2023 Active folic acid 1 mg tabletIndication s:Sarcoidosis,Mo nitoring For Therapeutic Drug Therapy,Osteopen ia Take 1 tablet (1 mg total) by mouth daily. 90 tablet 1 06/21/2023 Active atovaquone (MEPRON) 750 mg/5 mL suspensionIndica tions:Sarcoidosi s,Monitoring For Therapeutic Drug Therapy,Osteopen ia Take 5 mL (750 mg total) by mouth 2 (two) times a day with meals. For PCP prophylaxis while prednisone dose is > 15 mg daily 300 mL 2 06/21/2023 09/19/19 24 Active syringe, disposable, (BD Luer-Jericho Syringe) 1 mL syringeIndicatio ns:Sarcoidosis,M onitoring For Therapeutic Drug Therapy,Osteopen ia FOR METHOTREXATE INJECTIONS 100 each 08/09/2023 Active syringe, disposable, 1 mL syringeIndicatio ns:Sarcoidosis,M onitoring For Therapeutic Drug Therapy,Osteopen ia For methotrexate injections. 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 Med Refill 08/05/2023 Refill Division of Rheumatology in [place], [place] [address] [place] [address] Rajat Pizarro M.B.B.S. Med Refill 08/01/2023 Clinical Communication Department of Cardiovascular Medicine in [place], [place] [address] [place] [phone] Night FillerZain M.D. [employer] - Outside Materials 08/01/2023 Clinical Communication Department of Cardiovascular Medicine in [place], [place] [address] [place] [phone] Night FillerZain M.D. Documentation 08/01/2023 Orders Only Division of Rheumatology in [place], [place] [address] [place] [phone] Rajat Pizarro M.B.B.S. Sarcoidosis (Primary Dx) 07/31/2023 Clinical Communication Division of Rheumatology in [place], [place] [address] [place] [address] Rajat Pizarro M.B.B.S. 06/21/2023 Documentation Division of Rheumatology in [place], [place] [address] [place] [phone] Rajat Pizarro M.B.B.S. 06/12/2023 12:56 PM CDT - 06/12/2023 11:59 PM CDT Hospital Encounter Department of Radiology, [facility], in [place], [place] [address] [place] [address] Olivia Arreguin M.D. Sarcoidosis; Corticosteroid Treatment Usp Systemic; Immunodeficiency Due To Drugs (HCC) Discharge Disposition: Home or Self Care 06/12/2023 12:01 PM CDT - 06/12/2023 12:55 PM CDT Hospital Encounter Department of Laboratory Medicine and Pathology, [facility], in [place], [place] [address] [place] [address] Olivia Arreguin M.D. Sarcoidosis; Immunodeficiency Due To Drugs (HCC) Discharge Disposition: Home or Self Care 06/12/2023 12:00 PM CDT Hospital Encounter Department of Laboratory Medicine and Pathology, [facility], in [address] [phone] Olivia Arreguin M.D. Sarcoidosis; Immunodeficiency Due To Drugs (HCC) Discharge Disposition: Home or Self Care 06/12/2023 11:30 AM CDT Education Division of Rheumatology in [address] [phone] Olivia Arreguin M.D. Washnieski, Shane M, R.N. Sarcoidosis; Immunodeficiency Due To Drugs (HCC) 06/12/2023 10:15 AM CDT Comprehensive Visit Division of Rheumatology in [address] [phone] Rajat Pizarro M.B.B.SSandie Sarcoidosis (Primary Dx); Corticosteroid Treatment Usp Systemic; Immunodeficiency Due To Drugs (HCC); Elevated Alkaline Phosphatase 06/11/2023 9:00 AM CDT Clinical Communication Virtual Review in [place], [place] [address] [place] [address] Pre-visit Intake (INDIRA done 06/10 EEF) from Last 3 Months Family History Medical [...] 0.6 oz pur e alcohol) [facility] Utilities Answer Date Recorded In the [...] and heating? Not hard at all 11/22/2021 [facility] [place] of Occupat ional Health - Occupational Stress [...] Master's degree (e.g., MA, MS, Arti, MEd, [employer]PER[employer]ENT [employer], [employer]) 11/22/2021 Sex and Gender Information Value Date Recorded Sex Assigned at Female 11/22/2021 11:24 PM CDT Gender Identity Female 11/22/2021 11:24 PM CDT Sexual Orientation Lesbian or Alonso 11/22/2021 11 :24 PM CDT Last Filed Vital Signs Vital Sign Reading Time Taken Comments Blood Pressure 153/85 04/04/2023 1:48 PM IOS SOFTWARE ENGINEER Pulse 82 04/04/2023 1:48 PM IOS SOFTWARE ENGINEER Temperature 35.1 ??C (95.2 ??F) 11/21/2021 7:47 AM CD T Respiratory Rate - - Oxygen Saturation 97% 11/21/2021 7:47 AM CDT Inhaled Oxygen Concentration - - Weight 106 kg (232 lb 14.7 oz) 04/04/2023 1:46 P M IOS SOFTWARE ENGINEER Height 171 cm (5' 7.32) 04/04/2023 1:46 PM IOS SOFTWARE ENGINEER Body Mass Index 36.13 04/04/2023 1:46 PM IOS SOFTWARE ENGINEER Plan of Treatment Upcoming Encounters Date Type Department Care Team (Latest Contact Info) Description 08/16/2023 8:15 AM CDT Clinical Communication Virtual Review in [place], [place] [address] [place] [address] 08/20/2023 8:40 AM CDT Appointment Department of Cardiovascular Diseases in [place], [place] [address] [place] [phone] Neisha Nolan APRN C.N.P., M.S.N. 08/20/2023 9:10 AM CDT Appointment Department of Laboratory Medicine and Pathology, [facility] in [place], [place] [address] [place] [phone] Neisha Nolan APRN, C.N.P., M.S.N. 08/20/2023 10:45 AM CDT Appointment Department of Cardiovascular Diseases in [place], [place] [address] [place] [phone] Rajat Pizarro M.B.B.S. [address] [place] [phone] 08/20/2023 1:15 PM CDT Appointment Department of Radiology, [facility] in [place], [place] [address] [place] [phone] Neisha Nolan APRN, C.N.P., M.S.N. 08/21/2023 9:00 AM CDT Office Visit Department of Cardiovascular Medicine in [place], [place] [address] [place] [phone] Ghada Perdomo APRN, C.N.P., M.S.N. [address] [place] [phone] 08/21/2023 11:45 AM CDT Ancillary Procedure Department of Cardiovascular Medicine in [place], [place] [address] [place] [phone] Rajat Pizarro M.B.B.S. [address] [place] [phone] 08/21/2023 1:00 PM CDT Comprehensive Visit Department of Cardiovascular Medicine in [place], [place] [address] [place] [phone] Hamilton Babcock M.D. [address] [place] [phone] 10/21/2023 9:45 AM CDT Clinical Communication Virtual Review in [place], [place] [address] [place] [address] 10/23/2023 7:30 AM CDT Diagnostic Division of Pulmonary Medicine in [address] [phone] Rajat Pizarro M.B.B.S. [address] [place] [phone] 10/23/2023 8:40 AM CDT Appointment Department of Laboratory Medicine and Pathology, [facility], in [place], [place] [address] [place] [phone] Rajat Pizarro M.B.B.S. [address] [place] [address] 10/23/2023 9:15 AM CDT Appointment Department of Radiology, [facility], in [place], [place] [address] [place] [address] Rajat Pizarro M.B.B.S. [address] [place] [address] 10/23/2023 10:00 AM CDT Office Visit Division of Rheumatology in [place], [place] [address] [place] [address] Rajat Pizarro M.B.B.S. [address] [place] [phone] Health Maintenance Due Date Last Done Comments CT Colonography 1963 Cervical Cancer Screening 1965 Cologuard 1965 Colonoscopy 1963 Colorectal Cancer Screening 1963 FIT 1965 HIV Screening 1965 Depression Screening (Annual PHQ-2) 02/25/2023 Mammogram 06/19/2023 06/18/2022, 06/18/2022 Zoster Vaccines (2 of 2) 08/12/2023 06/17/2023 Fasting Glucose for Diabetes Screening 08/02/2026 08/03/2023, 07/17/2023, 07/04/2023, Additional history exists Lipid (Cholesterol) Screening 04/04/2028 [...] Name Priority Date/Time Associated Diagnosis Comments EXTI COMPREHENSIVE METABOLIC PANEL, S/P Routine 08/03/2023 12:02 PM CDT OUTSIDE DX CHEST Routine 07/05/2023 12:00 AM CDT OUTSIDE DX CHEST Routine 07/03/2023 12:00 AM CDT OUTSIDE DX CHEST Routine 07/02/2023 12:00 AM CDT OUTSIDE DX CHEST Routine 06/29/2023 11:10 PM CDT BMD BONE DENSITY SPINE HIPS RAD - Routine (most inpatients and all outpatients) 06/12/2023 1:34 PM CDT Sarcoidosis Corticosteroid Treatment Usp Systemic Immunodeficiency Due To Drugs (HCC) DIPSTICK, [...] LIPID PANEL, S Routine 04/04/2023 8:00 AM IOS SOFTWARE ENGINEER Failure Heart (HCC) BI BREAST SCREENING BILATERAL WITH TOMOSYNTHESIS RAD - Routine (most inpatients and all outpatients) 06/18/2022 9:49 AM CDT from Last 3 Months or Most Recently Relevant to Health Maintenance Results * XR CHEST 2 VIEWS PA AND LATERAL-Outside Chest Xray (07/05/2023 12:00 AM CDT) Only the most recent of4 resultswithin the time period is included. Narrative IIMS - 08/13/2023 9:12 AM CDT This order has been created and auto-finalized to support the import of outside images. If available, original interpretation can be found on the Media Tab in Chart Review, in Document Viewer, as an image in QREADS or as an Addendum. If a re-interpretation or overread is required please follow defined workflow.?? Provider Not In System IMG DIAGNOSTIC IM AGING PROCEDURES IIMT NA * BMD Bone Density Spine Hips (06/12/2023 [...] Bone Mineral Density (BMD) analysis performed on [employer] with serial number [id number]. ? FINDINGS: Left Hip: Femur Neck: BMD [...] including images and graphs, is available in [employer]. In the absence of other causes of [...] Bone Mineral Density (BMD) analysis performed on [employer] with serialnumber [id number]. FINDINGS: Left Hip: Femur Neck: BMD = [...] * Dipstick, Urine (06/12/2023 12:31 PM CDT) Pathologist [facility] Hemoglobin, QL, U Negative Negative 06/12/2023 1:24 [...] LAB URINE AYANAE RAÚL Performing Organization Address City/[facility]/ZIP Co de Phone Number [facility] [address] [place] [address], [facility] [address] [place] [address] * Microscopic Automated (06/12/2023 12:31 PM CDT) Pathologist [facility] Microscopy Normal 06/12/2023 1:24 PM CDT DTL [...] LAB URINE AYANAE RAÚL Performing Organization Address City/[facility]/ZIP Co de Phone Number [facility] [address] [place] [address], [facility] DTL [facility] [address] [place] [address] * pH, Urine (06/12/2023 12:31 PM CDT) pH, U 5.8 4.5 - 8.0 06/12/2023 1:4 8 PM CDT DTL Urine 06/12/2023 12:3 1 PM CDT 06/12/2023 12:53 PM CDT Olivia Arreguin M.D. LAB URINE ORDE RAÚL Performing Organization Address City/[facility]/ZIP Co de Phone Number [facility] [address] [place] [address], [facility] [address] [place] [address] * Protein/Creatinine Ratio, Random, Urine (06/12/2023 12:31 PM CDT) Protein, Total, Random, U 17 mg/dL 06/12/2023 1:43 PM CDT DTL Creatinine, Random, U 259 16 - 326 mg/dL 06/12/2023 1:43 PM CDT DTL Protein/Creatin ine Ratio 0.07 <0.18 mg/mg 06/12/2023 1:43 PM CDT DTL Urine (Urine, Midstream) 06/12/2023 12:31 PM CDT 06/12/2023 12:53 PM CDT Olivia Arreguin M.D. LAB URINE ALEXANDER OLSEN [facility] [address] [place] [address], [facility] [address] [place] [address] * Osmolality, Urine (06/12/2023 12:31 PM CDT) Osmolality, U 804 150 - 1150 mOsm/kg 06/12/2023 1:48 PM CDT DTL Urine 06/12/2023 12:3 1 PM CDT 06/12/2023 12:53 PM CDT Olivia Arreguin M.D. LAB URINE AYANADon RAÚL Performing Organization Address City/[facility] Co de Phone Number [facility] [address] [place] [address], [facility] [address] [place] [address] * Calcium/Creatinine Ratio, Random, Urine (06/12/2023 12:31 [...] LAB URINE ALEXANDER OLSEN Performing Organization Address City/[facility] Co de Phone Number [facility] [address] [place] [address], [facility] [address] [place] [address] * Urinalysis, with Microscopic: Urine, Midstream (06/12/2023 [...] LAB URINE ORDE RABLES Performing Organization Address City/[facility]/ZIP Co de Phone Number [facility] [address] [place] [address], [facility] DTL [facility] [address] [place] [address] * HBc Total Ab, Serum (06/12/2023 12:28 PM CDT) HBc Total Ab, S Negative Negative 06/12/2023 8:08 PM CDT [facility] Blood (Blood, Venous) 06/12/2023 12:28 PM CDT 06/12/2023 4:50 PM CDT Olivia Arreguin M.D. LAB MICROBIOLO GY - BLOOD ORDERABLES Performing Organization Address [facility] Co de Phone Number [facility] [address] [place] [address] [facility] [address] [place] [address] * HBs Antibody, Serum (06/12/2023 12:28 PM CDT) HBs Antibody, S Negative 06/12/2023 8:08 PM CDT [facility] Comment: Patient is presumed to be not immune to infection with HBV. ----REFERENCE VALUE---- Unvaccinated: Negative Vaccinated: Positive HBs Antibody, Quantitative, S <5.0 mIU/mL 06/12/2023 8:08 PM CDT [facility] Comment: ----REFERENCE VALUE---- Unvaccinated: <5.0 Vaccinated: >=12.0 Blood (Blood, Venous) 06/12/2023 12:28 PM CDT 06/12/2023 4:50 PM CDT Olivia Arreguin M.D. LAB MICROBIOLO GY - BLOOD ORDERABLES Performing Organization Address City/[facility]/ZIP Co de Phone Number [facility] [address] [place] [address] [facility] [address] [place] [address] * (ABNORMAL) CRP (C-Reactive Protein) (06/12/2023 12:28 PM CDT) [facility] C-Reactive Protein (CRP), S 5.2(H) <5.0 mg/L 06/12/2023 1:27 PM CDT DTL Blood (Blood, Venous) 06/12/2023 12:28 PM CDT 06/12/2023 1:04 PM CDT Olivia Arreguin M.D. LAB BLOOD ADD- ON Performing Organization Address [facility] Co de Phone Number [facility] [address] [place] [address], [facility] [address] [place] [address] * (ABNORMAL) Comprehensive Metabolic Panel (06/12/2023 12:28 PM CDT) [facility] Potassium, S 4.2 3.6 - 5.2 mmol/L [...] Olivia Arreguin M.D. LAB BLOOD ADD- ON [facility] [address] [place] [address], [facility] [address] [place] [address] * HCV Ab w/Reflex to HCV PCR, Serum (06/12/2023 12:27 PM CDT) Pathologist [facility] HCV Ab, S Negative Negative 06/14/2023 10:56 AM CDT [facility] Comment: Consumption of high-dose biotin supplement within 12 hours of blood collection for this test can cause false-negative results. Blood (Blood, Venous) 06/12/2023 12:27 PM CDT 06/12/2023 4:50 PM CDT Olivia Arreguin M.D. LAB MICROBIOLO GY - BLOOD ORDERABLES Performing Organization Address [facility] Co de Phone Number [facility] [address] [place] [address] [facility] [address] [place] [address] * 1,25-Dihydroxyvitamin D (06/12/2023 12:27 PM CDT) Pathologist [facility] 1, 25 DIHYDROXYVITAMIN D, S 41 18 - 78 pg/mL 06/14/2023 2:01 PM CDT [facility] Comment: ----ADDITIONAL INFORMATION---- This test was developed and its performance characteristics determined by [facility] in a manner consistent with CLIA requirements. This test has not been cleared or approved by the U.S. Food and Drug Administration. Blood (Blood, Venous) 06/12/2023 12:27 PM CDT 06/13/2023 7:43 AM CDT Olivia Arreguin M.D. LAB BLOOD ADD- ON Performing Organization Address [facility] Co de Phone Number [facility] [address] [place] [address] [place] [address] [place] [address] * (ABNORMAL) 25-Hydroxyvitamin D2 and D3 (06/12/2023 12:27 PM CDT) Pathologist [facility] 25-Hydroxy D2 <4.0 ng/mL 06/17/2023 1:31 PM CDT [facility] 25-Hydroxy D3 16 ng/mL 06/17/2023 1:31 PM CDT [facility] 25-Hydroxy D Total 16(L) ng/mL 2023 1:31 PM CDT [facility] Comment: Interpretation: 10-19 ng/mL (mild to moderate deficiency) ----REFERENCE VALUE---- 25-HYDROXY D TOTAL (D2+D3) Optimum levels in the healthy population are 20-50, patients with bone disease may benefit from higher levels within this range. ----ADDITIONAL INFORMATION---- This test was developed and its performance characteristics determined by [facility] in a manner consistent with CLIA requirements. This test has not been cleared or approved by the U.S. Food and Drug Administration. Blood (Blood, Venous) 06/12/2023 12:27 PM CDT 06/13/2023 7:17 AM CDT Olivia Arreguin M.D. LAB BLOOD ADD- ON Performing Organization Address City/[facility]/ZIP Co de Phone Number [facility] [address] [place] [address] [facility] [address] [place] [address] [place] [address] * Hepatitis B Surface Antigen (06/12/2023 12:27 PM CDT) Pathologist [facility] HBs Antigen, S Negative Negative 06/14/2023 10:56 AM CDT [facility] Blood (Blood, Venous) 06/12/2023 12:27 PM CDT 06/12/2023 4:50 PM CDT Olivia Arreguin M.D. LAB MICROBIOLO GY - BLOOD ORDERABLES Performing Organization Address [facility] Co de Phone Number [facility] [address] [place] [address] [facility] [address] [place] [address] * Sedimentation Rate (06/12/2023 12:27 PM CDT) Pathologist [facility] Sedimentation Rate, B 16 2 - 22 mm/h 06/12/2023 1:57 PM CDT [facility] Blood (Blood, Venous) 06/12/2023 12:27 PM CDT 06/12/2023 12:51 PM CDT Olivia Arreguin M.D. LAB BLOOD ADD- ON Performing Organization Address City/[facility]/ZIP Co de Phone Number [facility] [address] [place] [address], [place] [facility] [address] [place] [address] * (ABNORMAL) CBC with Differential, Blood (06/12/2023 [...] Arreguin M.D. LAB BLOOD ADD- ON [facility] [address] [place] [address], [facility] [address] [place] [address] [facility] [address] [place] [address] * GGT (Gamma-Glutamyltransferase) (06/12/2023 12:22 PM CDT) Pathologist [facility] Gamma Glutamyltransferase (GGT), S 10 5 - 36 U/L 06/12/2023 6:19 PM CDT DTL Blood (Blood, Venous) 06/12/2023 12:22 PM CDT 06/12/2023 5:18 PM CDT Olivia Arreguin M.D. LAB BLOOD ADD- ON [facility] [address] [place] [address], [facility] [address] [place] [address] * (ABNORMAL) Lipid Panel (04/04/2023 8:00 AM IOS SOFTWARE ENGINEER) Pathologist [facility] Triglycerides 144 mg/dL 04/04/2023 9:16 AM IOS SOFTWARE ENGINEER DTL Comment: ----REFERENCE VALUE---- Normal: <150 mg/dL Borderline High: 150-199 mg/dL High: 200-499 mg/dL Very High: > or =500 mg/dL Cholesterol, Total 180 mg/dL 2023 9:16 AM IOS SOFTWARE ENGINEER DTL Comment: ----REFERENCE VALUE---- Desirable: < 200 mg/dL Borderline High: 200 - 239 mg/dL High: > or = 240 mg/dL Cholesterol, LDL, Calculated 107 mg/dL 04/04/2023 9:16 AM IOS SOFTWARE ENGINEER DTL Comment: ----REFERENCE VALUE---- Desirable: <100 mg/dL Above Desirable: 100-129 mg/dL Borderline High: 130-159 mg/dL High: 160-189 mg/dL Very High: >=190 mg/dL ----ADDITIONAL INFORMATION---- LDL cholesterol calculated using the Gardner/NIH equation. Cholesterol, HDL, S 48(L) >=50 mg/dL 04/04/2023 9:16 AM IOS SOFTWARE ENGINEER DTL Cholesterol, Non-HDL, Calculated 132 mg/dL 04/04/2023 9:16 AM IOS SOFTWARE ENGINEER DTL Comment: ----REFERENCE VALUE---- Desirable: <130 mg/dL Above Desirable: 130-159 mg/dL Borderline High: 160-189 mg/dL High: 190-219 mg/dL Very High: > or =220 mg/dL Fasting (8 HR or more) No 04/04/2023 8:41 AM IOS SOFTWARE ENGINEER DTL Blood (Blood, Venous) 04/04/2023 8:00 AM IOS SOFTWARE ENGINEER 04/04/2023 8:41 AM IOS SOFTWARE ENGINEER Neisha Nolan APRN, C.N.P., M.S.N. LAB B LOREBA ADD-ON [facility] [address] [place] [address], [facility] [address] [place] [address] from Last 3 Months or Most Recently Relevant to Health Maintenance Additional Health Concerns Infection Onset Date Last Indicated Protective Environment 07/31/2023 4
--- OUTSIDE RECORDS SUMMARY | 2023-08-14 01:20 | XMS_ITS | Encounter Summary ---
Author Organization [facility] Address [address] [place] [address] Care Team Providers Care Administrative Office Manager Name Role Phone Unavailable Primary Care Provider Unavailabl e Reason for Visit * Reason Comments Med Refill Encounter Details Date Type Department Care Team (Late st Contact Info) Description 08/05/2023 Refill Division of Rheumatology in [place], [place] [address] [place] [phone] Rajat Pizarro M.B.B.S. [address] [place] [phone] Med Refill Social History Tobacco Use Types Packs/Day Years Used Date Smoking Tobacco: Former Cigarettes 0.5 10 0 02/25/1994 - 02/26/2004 Passive Smoke Exposure: Past Smokeless Tobacco: Never Alcohol Use Standard Drinks/Week Comments Yes 2 (1 standard drink = 0.6 oz pur e alcohol) [facility] Utilities Answer Date Recorded In the past 12 months has [facility] [employer], oil, or water [employer] threatened to shut off services in your [...] How often do you attend chur or jehovah's witness services? More than 4 times per year [...] your living situation today? I have a [facility] place to live 03/30/2023 Education Answer Date Recorded What is the highest level of school you have completed or the highest degree you have received? 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 HISTORY OF PRESENT ILLNESS Last Rheum / VASC visit: 06/12/23 with CASPER Gonzalez Future office visit: 10/23/2023 with Nilson GonzalezB.S. Last monitoring None Needed: Not required for medication renewal requested. Prescription request matches current plan of care. Prescription request matches a current prescription in the Medication List. Exclusion criteria: None (If an alert appeared, it was determined to be an approved exception) ASSESSMENT/PLAN Prescription request renewed per nursing protocol. documented in this encounter Plan of Treatment Upcoming Encounters Date Type Department Care Team (Latest Contact Info) Description 08/16/2023 8:15 AM CDT Clinical Communication Virtual Review in [address] [phone] 08/20/2023 8:40 AM CDT Appointment Department of Cardiovascular Diseases in [address] [phone] Neisha Nolan APRN, C.NJae., M.S.N. 08/20/2023 9:10 AM CDT Appointment Department of Laboratory Medicine and Pathology, [facility] in [address] [phone] Neisha Nolan APRN, C.N.Cheryl., M.S.N. 08/20/2023 10:45 AM CDT Appointment Department of Cardiovascular Diseases in [place], [place] [address] [place] [phone] Rajat Pizarro M.B.B.S. [address] [place] [phone] 08/20/2023 1:15 PM CDT Appointment Department of Radiology, [address] [phone] Neisha Nolan APRN, C.NSandieP., M.S.N. 08/21/2023 9:00 AM CDT Office Visit Department of Cardiovascular Medicine in [address] [phone] Ghada Perdomo APRN, C.NJae., M.S.N. [address] [place] [phone] 08/21/2023 11:45 AM CDT Ancillary Procedure Department of Cardiovascular Medicine in [place], [place] [address] [place] [address] Rajat Pizarro M.B.B.S. [address] [place] [phone] 08/21/2023 1:00 PM CDT Comprehensive Visit Department of Cardiovascular Medicine in [place], [place] [address] [place] [phone] Hamilton Babcock M.D. [address] [place] [phone] 10/21/2023 9:45 AM CDT Clinical Communication Virtual Review in [place], [place] 200 [place] [address] 10/23/2023 7:30 AM CDT Diagnostic Division of Pulmonary Medicine in [place], [place] [address] [place] [phone] Rajat Pizarro M.B.B.S. [address] [place] [phone] 10/23/2023 8:40 AM CDT Appointment Department of Laboratory Medicine and Pathology, [facility], in [place], [place] [address] [place] [address] Rajat Pizarro M.B.B.S. [address] [place] [phone] 10/23/2023 9:15 AM CDT Appointment Department of Radiology, [facility], in [place], [place] [address] [place] [address] Rajat Pizarro M.B.B.S. [address] [place] [phone] 10/23/2023 10:00 AM CDT Office Visit Division of Rheumatology in [place], [place] [address] [place] [address] Rajat Pizarro M.B.B.S. [address] [place] [phone] documented as of this encounter Visit Diagnoses Diagnosis Sarcoidosis Monitoring For Therapeutic Drug Therapy Osteopenia documented in this encounter Additional Health Concerns Infection Onset Date Last Indicated Resolved Time Protective Environment 07/31/2023 07/31/2023 documented as of this encounter
--- OUTSIDE RECORDS SUMMARY | 2023-08-14 01:20 | XMS_ITS ---
Author Organization [facility] Address [address] [place] [address] Care Team Providers Care Android Ui Developer Name Role Phone Unavailable Unavailable Unavailable Surgery Details Not on file Complications Check Surgery Details section. Procedure Estimated Blood Loss Check Surgery Details section. Procedure Findings Check Surgery Details section. Procedure Specimens Taken Check Surgery Details section.
--- OUTSIDE RECORDS SUMMARY | 2023-08-14 01:20 | XMS_ITS | Encounter Summary ---
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 [address] [place] [phone] [facility] Referral ID Status Reason Start Date Expiration Date Visits Re quested Visits Authorized [id number] Closed 06/12/2023 06/11/2024 1 1 Encounter Details Date Type Department Care Team (Latest Contact Info) Description 06/12/2023 12:56 PM CDT - 06/12/2023 11:59 PM CDT Hospital Encounter Department of Radiology, [facility], in [place], [place] [address] [place] [phone] Olivia Arreguin M.D. [address] [place] [address] Sarcoidosis; Corticosteroid Treatment Correction Systemic; Immunodeficiency Due To Drugs (HCC) Discharge Disposition: Home or Self Care Social History Tobacco Use Types Packs/Day Years Used Date Smoking Tobacco: Former Cigarettes 0.5 10 0 02/25/1994 - 02/26/2004 Passive Smoke Exposure: Past Smokeless Tobacco: Never Alcohol Use Standard Drinks/Week Comments Yes 2 (1 standard drink = 0.6 oz pur e alcohol) [facility] Utilities Answer Date Recorded In [...] often do you attend chur ch or scientologist services? More than 4 times per year 11/22/2021 Do you belong to any clubs o r organizations such as mandaeism groups, unions, fraternal or athletic groups, or [...] and heating? Not hard at all 11/22/2021 [facility] [place] [facility] Occupat ional [facility] - Occupational Stress [...] your living situation today? I have a [facility] place to live 03/30/2023 Education Answer Date Recorded What is the highest level of school you have completed or the highest degree you have received? Master's degree (e.g., MA, MS, Arti, MEd, ACCOUNT SERVICE ASSOCIATE, [employer]) 11/22/2021 Sex and Gender Information Value [...] AM CDT Clinical Communication Virtual Review in [place], [place] [address] [place] [address] 08/20/2023 8:40 AM CDT Appointment Department of Cardiovascular Diseases in [place], [place] [address] [place] [phone] Neisha Nolan, JESSIKA, C.N.P., M.S.N. 08/20/2023 9:10 AM CDT Appointment Department of Laboratory Medicine and Pathology, [facility], in [place], [place] [address] [place] [phone] Neisha Nolan APRN, C.N.P., M.S.N. 08/20/2023 10:45 AM CDT Appointment Department of Cardiovascular Diseases in [place], [place] [address] [place] [phone] Rajat Pizarro I., Flores.B.B.S. [address] [place] [phone] 08/20/2023 1:15 PM CDT Appointment Department of Radiology, [facility], in [place], [place] [address] [place] [phone] Neisha Nolan APRN, C.N.P., M.S.N. 08/21/2023 9:00 AM CDT Office Visit Department of Cardiovascular Medicine in [place], [place] [address] [place] [phone] Ghada Perdomo APRN, C.N.P., M.S.N. [address] [place] [phone] 08/21/2023 11:45 AM CDT Ancillary Procedure Department of Cardiovascular Medicine in [place], [place] [address] [place] [phone] Rajat Pizarro M.B.B.S. [address] [place] [phone] 08/21/2023 1:00 PM CDT Comprehensive Visit Department of Cardiovascular Medicine in [place], [place] [address] [place] [phone] Hamilton Babcock M.D. [address] [place] [phone] 10/21/2023 9:45 AM CDT Clinical Communication Virtual Review in [place], [place] 200 [place] [address] 10/23/2023 7:30 AM CDT Diagnostic Division of Pulmonary Medicine in [place], [place] [address] [place] [address] Rajat Pizarro M.B.B.S. [address] [place] [phone] 10/23/2023 8:40 AM CDT Appointment Department of Laboratory Medicine and Pathology, [facility] in [place], [place] [address] [place] [address] Rajat Pizarro M.B.B.S. [address] [place] [phone] 10/23/2023 9:15 AM CDT Appointment Department of Radiology, [facility] in [place], [place] [address] [place] [address] Rajat Pizarro M.B.B.S. [address] [place] [phone] 10/23/2023 10:00 AM CDT Office Visit Division of Rheumatology in [place], [place] [address] [place] [phone] Rajat Pizaror M.B.B.S. 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 ? FINDINGS: Left Hip: Femur Neck: BMD [...] Bone Mineral Density (BMD) analysis performed on [employer] with serialnumber [id number]. FINDINGS: Left Hip: Femur Neck: BMD = [...] report, including images and graphs,is available in [employer]. 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
--- OUTSIDE RECORDS SUMMARY | 2023-08-14 01:20 | XMS_ITS | Referral Summary ---
Author Organization [facility] Address [address] [place] [address] Care Team Providers Care Benefits Specialist Recruiter Name Role Phone Unavailable Primary Care Provider Unavailabl e Source Comments Patient records contain information from all sites at [facility]. For routine questions regarding patient records, call [phone] during business hours, M-F 8:00 AM - 5:00 PM Central Time. Record requests for emergency care only can be directed to [phone] at any time.[facility] Encounters Date Type Department Care Team Description 08/06/2023 Refill Division of Rheumatology in [place], [place] [address] [place] [phone] Rajat Pizarro M.B.B.S. Med Refill 08/05/2023 Refill Division of Rheumatology in [place], [place] [address] [place] [phone] Rajat Pizarro M.B.B.S. Med Refill 08/01/2023 Clinical Communication Department of Cardiovascular Medicine in [place], [place] [address] [place] [phone] Auto Seat Cover InstallerZain M.D. [employer] - Outside Materials 08/01/2023 Clinical Communication Department of Cardiovascular Medicine in [place], [place] [address] [place] [phone] Auto Seat Cover InstallerZain M.D. Documentation 08/01/2023 Orders Only Division of Rheumatology in [place], [place] [address] [place] [phone] Rajat Pizarro M.B.B.S. Sarcoidosis (Primary Dx) 07/31/2023 Clinical Communication Division of Rheumatology in [place], [place] [address] [place] [phone] Rajat Pizarro M.B.B.S. 06/21/2023 Documentation Division of Rheumatology in [place], [place] [address] [place] [phone] Rajat Pizarro M.B.B.S. 06/12/2023 11:30 AM CDT Education Division of Rheumatology in [place], [place] [address] [place] [phone] Olivia Arreguin M.D. Washnieski, Shane M, R.NSandie Sarcoidosis; Immunodeficiency Due To Drugs (HCC) 06/12/2023 12:01 PM CDT - 06/12/2023 12:55 PM CDT Hospital Encounter Department of Laboratory Medicine and Pathology, [address] [phone] Olivia Arreguin M.D. Sarcoidosis; Immunodeficiency Due To Drugs (HCC) Discharge Disposition: Home or Self Care 06/12/2023 12:56 PM CDT - 06/12/2023 11:59 PM CDT Hospital Encounter Department of Radiology, [address] [phone] Olivia Arreguin M.D. Sarcoidosis; Corticosteroid Treatment Prison Systemic; Immunodeficiency Due To Drugs (HCC) Discharge Disposition: Home or Self Care 06/12/2023 12:00 PM CDT Hospital Encounter Department of Laboratory Medicine and Pathology, [place], [place] [address] [place] [phone] Olivia Arreguin M.D. Sarcoidosis; Immunodeficiency Due To Drugs (HCC) Discharge Disposition: Home or Self Care 06/12/2023 10:15 AM CDT Comprehensive Visit Division of Rheumatology in [address] [phone] Rajat Pizarro M.B.B.S. 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 Remember labs. 18.8 mL 06/21/2023 12/16/19 24 Active needle, disp, 27 gauge [...] Problem Noted Date Diagnosed Date Corticosteroid Treatment Prison Systemic 05/26 Immunodeficiency Due To Drugs 06/12/2023 [...] In the past 12 months has e [employer], gas, oil, or water [employer] threatened to shut off services in your [...] How often do you attend chur or confucianist services? More than 4 times per year [...] and heating? Not hard at all 11/22/2021 [facility] - Occupational Stress [...] your living situation today? I have a [facility] place to live 03/30/2023 Education Answer Date Recorded What is the highest level of school you have completed or the highest degree you have received? Master's degree (e.g., MA, MS, Arti, MEd, AFTER SCHOOL PROGRAM COORDINATOR, GAL[employer]) 11/22/2021 Sex and Gender Information Value Date Recorded Sex Assigned at Female 11/22/2021 11:24 PM CDT Gender Identity Female 11/22/2021 11:24 PM CDT Sexual Orientation Lesbian or Alonso 11/22/2021 11 :24 PM CDT Last Filed Vital Signs Vital Sign Reading Time Taken Comments Blood Pressure 153/85 04/04/2023 1:48 PM ELEMENTARY ESL TEACHER Pulse 82 04/04/2023 1:48 PM ELEMENTARY ESL TEACHER Temperature 35.1 ??C (95.2 ??F) 11/21/2021 7:47 AM CD T Respiratory Rate - - Oxygen Saturation 97% 11/21/2021 7:47 AM CDT Inhaled Oxygen Concentration - - Weight 106 kg (232 lb 14.7 oz) 04/04/2023 1:46 P M ELEMENTARY ESL TEACHER Height 171 cm (5' 7.32) 04/04/2023 1:46 PM ELEMENTARY ESL TEACHER Body Mass Index 36.13 04/04/2023 1:46 PM ELEMENTARY ESL TEACHER Plan of Treatment Upcoming Encounters Date Type Department Care Team (Latest Contact Info) Description 08/16/2023 8:15 AM CDT Clinical Communication Virtual Review in [place], [place] 200 [place] [address] 08/20/2023 8:40 AM CDT Appointment Department of Cardiovascular Diseases in [place], [place] [address] [place] [phone] Neisha Nolan APRN, C.N.P., M.S.N. 08/20/2023 9:10 AM CDT Appointment Department of Laboratory Medicine and Pathology, [facility] in [address] [phone] Neisha Nolan APRN, C.N.P., M.S.N. 08/20/2023 10:45 AM CDT Appointment Department of Cardiovascular Diseases in [place], [place] [address] [place] [phone] Rajat Pizarro M.B.B.S. [address] [place] [phone] 08/20/2023 1:15 PM CDT Appointment Department of Radiology, [facility] in [place], [place] [address] [place] [phone] Neisha Nolan APRN, C.N.P., M.S.N. 08/21/2023 9:00 AM CDT Office Visit Department of Cardiovascular Medicine in [address] [phone] Ghada Perdomo APRN, C.N.P., M.S.N. [address] [place] [phone] 08/21/2023 11:45 AM CDT Ancillary Procedure Department of Cardiovascular Medicine in [place], [place] [address] [place] [phone] Rajat Pizarro M.B.B.S. [address] [place] [phone] 08/21/2023 1:00 PM CDT Comprehensive Visit Department of Cardiovascular Medicine in [place], [place] [address] [place] [phone] Hamilton Babcock M.D. [address] [place] [phone] 10/21/2023 9:45 AM CDT Clinical Communication Virtual Review in [place], [place] 200 [place] [address] 10/23/2023 7:30 AM CDT Diagnostic Division of Pulmonary Medicine in [place], [place] [address] [place] [phone] Rajat Pizarro M.B.B.S. [address] [place] [phone] 10/23/2023 8:40 AM CDT Appointment Department of Laboratory Medicine and Pathology, [facility], in [place], [place] [address] [place] [phone] Rajat Pizarro M.B.B.S. [address] [place] [phone] 10/23/2023 9:15 AM CDT Appointment Department of Radiology, [facility], in [place], [place] [address] [place] [phone] aRjat Pizarro M.B.B.S. [address] [place] [phone] 10/23/2023 10:00 AM CDT Office Visit Division of Rheumatology in [place], [place] [address] [place] [phone] Rajat Pizarro M.B.BSandieS. [address] [place] [phone] Procedures Procedure Name Priority Date/Time Associated Diagnosis [...] 06/12/2023 1:34 PM CDT Sarcoidosis Corticosteroid Treatment Pickling Drum Operator Systemic Immunodeficiency Due To Drugs (HCC) DIPSTICK, [...] LIPID PANEL, S Routine 04/04/2023 8:00 AM ELEMENTARY ESL TEACHER Failure Heart (HCC) BI BREAST SCREENING BILATERAL [...] In System IMG DIAGNOSTIC IM AGING PROCEDURES IICT NA * BMD Bone Density Spine Hips [...] Bone Mineral Density (BMD) analysis performed on Cordium LinksXA with serial number [id number]. ? FINDINGS: Left Hip: Femur Neck: BMD [...] including images and graphs, is available in OLSET. In the absence of other causes of [...] Bone Mineral Density (BMD) analysis performed on iSpecimen with serialnumber [id number]. FINDINGS: Left Hip: Femur Neck: BMD = [...] CDT Olivia Arreguin M.D. [facility] Organization Address City/State/ZIP Co de Phone Number [facility] 200 [place] [address], [facility] [place] [address] * Microscopic Automated (06/12/2023 12:31 PM CDT) Pathologist [facility] Microscopy Normal 06/12/2023 1:24 PM CDT DTL [...] Olivia Arreguin M.D. LAB URINE AYANAE RAÚL [facility] 200 [place], [place] [phone] [place] [address] 200 [place] [address] * pH, Urine (06/12/2023 12:31 PM CDT) pH, U 5.8 4.5 - 8.0 06/12/2023 1:4 8 PM CDT DTL Urine 06/12/2023 12:3 1 PM CDT 06/12/2023 12:53 PM CDT Olivia Arreguin M.D. LAB URINE AYANAE RAÚL Performing Organization Address City/[facility] [facility]/ZIP Co de Phone Number [facility] 200 [place] [address], [facility] 200 [place] [address] * Protein/Creatinine Ratio, Random, Urine (06/12/2023 12:31 [...] LAB URINE AYANAE RAÚL Performing Organization Address City/[place] [facility]/ZIP Co de Phone Number [facility] 200 [place] [address], [facility] 200 [place] [address] * Osmolality, Urine (06/12/2023 12:31 PM CDT) Osmolality, U 804 150 - 1150 mOsm/kg 06/12/2023 1:48 PM CDT DTL Urine 06/12/2023 12:3 1 PM CDT 06/12/2023 12:53 PM CDT Olivia Arreguin M.D. LAB URINE AYANAE RAÚL Performing Organization Address City/[facility]/ZIP Co de Phone Number [facility] 200 [place] [address], [facility] 200 [place] [address] * Calcium/Creatinine Ratio, Random, Urine (06/12/2023 12:31 PM CDT) Pathologist [facility] Calcium/Creat Ratio, Random, U 0.08 0.05 - 0.27 mg/mg 06/12/2023 1:43 PM CDT DTL Calcium, Random, U 22 mg/dL 06/12/2023 1:43 PM CDT DTL Creatinine, Random, U 259 16 - 326 mg/dL 06/12/2023 1:43 PM CDT DTL Urine (Urine, Midstream) 06/12/2023 12:31 PM CDT 06/12/2023 12:53 PM CDT Olivia Arreguin M.D. LAB URINE ALEXANDER OLSEN Performing Organization Address City/[facility]/ZIP Co de Phone Number [facility] 200 [place] [address], [facility] 200 [place] [address] * Urinalysis, with Microscopic: Urine, Midstream (06/12/2023 [...] LAB URINE ORDE RABLES Performing Organization Address City/[facility]/ZIP Co de Phone Number [facility] [address] [place] [address], [facility] [address] [place] [address] * HBc Total Ab, Serum (06/12/2023 12:28 PM CDT) Pathologist [facility] HBc Total Ab, S Negative Negative 06/12/2023 8:08 PM CDT [facility] Blood (Blood, Venous) 06/12/2023 12:28 PM CDT 06/12/2023 4:50 PM CDT Olivia Arreguin M.D. LAB MICROBIOLO GY - BLOOD ORDERABLES Performing Organization Address [facility]/ZIP Co de Phone Number [facility] [address] [place] [address] [facility] [address] [place] [address] * HBs Antibody, Serum (06/12/2023 12:28 PM CDT) HBs Antibody, S Negative 06/12/2023 8:08 PM CDT [facility] Comment: Patient is presumed to be not immune to infection with HBV. ----REFERENCE VALUE---- Unvaccinated: Negative Vaccinated: Positive HBs Antibody, Quantitative, S <5.0 mIU/mL 06/12/2023 8:08 PM CDT [facility] Comment: ----REFERENCE VALUE---- Unvaccinated: <5.0 Vaccinated: >=12.0 Blood (Blood, Venous) 06/12/2023 12:28 PM CDT 06/12/2023 4:50 PM CDT Olivia Arreguin M.D. LAB MICROBIOLO GY - BLOOD ORDERABLES Performing Organization Address City/[facility]/ZIP Co de Phone Number [facility] [address] [address] [facility] [address] [place] [address] * (ABNORMAL) CRP (C-Reactive Protein) (06/12/2023 12:28 PM CDT) Pathologist [facility] C-Reactive Protein (CRP), S 5.2(H) <5.0 mg/L 06/12/2023 1:27 PM CDT DTL Blood (Blood, Venous) 06/12/2023 12:28 PM CDT 06/12/2023 1:04 PM CDT Olivia Arreguin M.D. LAB BLOOD ADD- ON Performing Organization Address [facility]/ZIP Co de Phone Number [facility] 200 [place] [address], [facility] 200 [place] [address] * (ABNORMAL) Comprehensive Metabolic Panel (06/12/2023 12:28 PM CDT) Pathologist [facility] Potassium, S 4.2 3.6 - 5.2 mmol/L [...] Olivia Arreguin M.D. LAB BLOOD ADD- ON [facility] [address] [place] [address], [facility] [address] [place] [address] * HCV Ab w/Reflex to HCV PCR, Serum (06/12/2023 12:27 PM CDT) Pathologist [facility] HCV Ab, S Negative Negative 06/14/2023 10:56 AM CDT [facility] Comment: Consumption of high-dose biotin supplement within 12 hours of blood collection for this test can cause false-negative results. Blood (Blood, Venous) 06/12/2023 12:27 PM CDT 06/12/2023 4:50 PM CDT Olivia Arreguin M.D. LAB MICROBIOLO GY - BLOOD ORDERABLES Performing Organization Address [facility] de Phone Number [facility] [address] [place] [address] [facility] [address] [place] [address] * 1,25-Dihydroxyvitamin D (06/12/2023 12:27 PM CDT) Pathologist [facility] 1, 25 DIHYDROXYVITAMIN D, S 41 18 - 78 pg/mL 06/14/2023 2:01 PM CDT [facility] Comment: ----ADDITIONAL INFORMATION---- This test was developed and its performance characteristics determined by [facility] in a manner consistent with CLIA requirements. This test has not been cleared or approved by the U.S. Food and Drug Administration. Blood (Blood, Venous) 06/12/2023 12:27 PM CDT 06/13/2023 7:43 AM CDT Olivia Arreguin M.D. LAB BLOOD ADD- ON Performing Organization Address [facility] Co de Phone Number [facility] [address] [place] [address] [facility] [address] [place] [address] [place] [address] * (ABNORMAL) 25-Hydroxyvitamin D2 and D3 (06/12/2023 12:27 PM CDT) 25-Hydroxy D2 <4.0 ng/mL 06/17/2023 1:31 PM CDT [facility] 25-Hydroxy D3 16 ng/mL 06/17/2023 1:31 PM CDT [facility] 25-Hydroxy D Total 16(L) ng/mL 2023 1:31 PM CDT [facility] Comment: Interpretation: 10-19 ng/mL (mild to moderate deficiency) ----REFERENCE VALUE---- 25-HYDROXY D TOTAL (D2+D3) Optimum levels in the healthy population are 20-50, patients with bone disease may benefit from higher levels within this range. ----ADDITIONAL INFORMATION---- This test was developed and its performance characteristics determined by [facility] in a manner consistent with CLIA requirements. This test has not been cleared or approved by the U.S. Food and Drug Administration. Blood (Blood, Venous) 06/12/2023 12:27 PM CDT 06/13/2023 7:17 AM CDT Olivia Arreguin M.D. LAB BLOOD ADD- ON Performing Organization Address [facility]/ZIP Co de Phone Number [facility] [address] [place], [place] [phone] [place] [address] [address] [place] [address] [place] [address] * Hepatitis B Surface Antigen (06/12/2023 12:27 PM CDT) HBs Antigen, S Negative Negative 06/14/2023 10:56 AM CDT [facility] Blood (Blood, Venous) 06/12/2023 12:27 PM CDT 06/12/2023 4:50 PM CDT Olivia Arreguin M.D. LAB MICROBIOLO GY - BLOOD ORDERABLES Performing Organization Address [facility] Co de Phone Number [facility] [address] [place] [address] [facility] [address] [place] [address] * Sedimentation Rate (06/12/2023 12:27 PM CDT) Sedimentation Rate, B 16 2 - 22 mm/h 06/12/2023 1:57 PM CDT DT Blood (Blood, Venous) 06/12/2023 12:27 PM CDT 06/12/2023 12:51 PM CDT Olivia A Arreguin M.D. LAB BLOOD ADD- ON [facility] [address] [place] [address], [facility] DTL [facility] [address] [place] [address] * (ABNORMAL) CBC with Differential, Blood (06/12/2023 [...] Olivia Arreguin M.D. LAB BLOOD ADD- ON [facility] 200 [place] [address], [facility] 200 [place] [address] [facility] 200 [place] [address] * GGT (Gamma-Glutamyltransferase) (06/12/2023 12:22 PM CDT) Gamma Glutamyltransferase (GGT), S 10 5 - 36 U/L 06/12/2023 6:19 PM CDT DTL Blood (Blood, Venous) 06/12/2023 12:22 PM CDT 06/12/2023 5:18 PM CDT Olivia Arreguin M.D. LAB BLOOD ADD- ON [facility] 200 [place] [address], [facility] 200 [place] [address] * (ABNORMAL) Lipid Panel (04/04/2023 8:00 AM ELEMENTARY ESL TEACHER) Triglycerides 144 mg/dL 04/04/2023 9:16 AM ELEMENTARY ESL TEACHER DTL Comment: ----REFERENCE VALUE---- Normal: <150 mg/dL Borderline High: 150-199 mg/dL High: 200-499 mg/dL Very High: > or =500 mg/dL Cholesterol, Total 180 mg/dL 2023 9:16 AM ELEMENTARY ESL TEACHER DTL Comment: ----REFERENCE VALUE---- Desirable: < 200 mg/dL Borderline High: 200 - 239 mg/dL High: > or = 240 mg/dL Cholesterol, LDL, Calculated 107 mg/dL 04/04/2023 9:16 AM ELEMENTARY ESL TEACHER DTL Comment: ----REFERENCE VALUE---- Desirable: <100 mg/dL Above Desirable: 100-129 mg/dL Borderline High: 130-159 mg/dL High: 160-189 mg/dL Very High: >=190 mg/dL ----ADDITIONAL INFORMATION---- LDL cholesterol calculated using the Gardner/NIH equation. Cholesterol, HDL, S 48(L) >=50 mg/dL 04/04/2023 9:16 AM ELEMENTARY ESL TEACHER DTL Cholesterol, Non-HDL, Calculated 132 mg/dL 04/04/2023 9:16 AM ELEMENTARY ESL TEACHER DTL Comment: ----REFERENCE VALUE---- Desirable: <130 mg/dL Above Desirable: 130-159 mg/dL Borderline High: 160-189 mg/dL High: 190-219 mg/dL Very High: > or =220 mg/dL Fasting (8 HR or more) No 04/04/2023 8:41 AM ELEMENTARY ESL TEACHER DTL Blood (Blood, Venous) 04/04/2023 8:00 AM ELEMENTARY ESL TEACHER 04/04/2023 8:41 AM ELEMENTARY ESL TEACHER Neisha Nolan APRN, C.N.P., M.S.N. LAB B LOOD ADD-ON [facility] [address] [place] [address], [facility] [address] [place] [address] from Last 3 Months or Most Recently Relevant to Health Maintenance Additional Health Concerns Infection Onset Date Last Indicated Protective Environment 07/31/2023 4
--- OUTSIDE RECORDS SUMMARY | 2023-08-14 01:20 | XMS_ITS | Encounter Summary ---
Author Organization [facility] Address [address] [place] [address] Care Team Providers Care Watch Repairer Name Role Phone Unavailable Primary Care Provider Unavailabl e Encounter Details Date Type Department Care Team (Latest Contact Info) Description 06/12/2023 12:01 PM CDT - 06/12/2023 12:55 PM CDT Hospital Encounter Department of Laboratory Medicine and Pathology, [facility] in [place], [place] [address] [place] [phone] Olivia Arreguin M.D. [address] [place] [phone] Sarcoidosis; Immunodeficiency Due To Drugs (HCC) Discharge Disposition: Home or Self Care Social History Tobacco Use Types Packs/Day Years Used Date Smoking Tobacco: Former Cigarettes 0.5 10 0 02/25/1994 - 02/26/2004 Passive Smoke Exposure: Past Smokeless Tobacco: Never Alcohol Use Standard Drinks/Week Comments Yes 2 (1 standard drink = 0.6 oz pur e alcohol) [facility] Utilities Answer Date Recorded In the past 12 months has [facility] [employer], gas, oil, or water [employer] threatened to shut off services in your [...] How often do you attend chur or zoroastrianism services? More than 4 times per year 11/22/2021 Do you belong to any clubs o r organizations such as holiness groups, unions, fraternal or athletic groups, or [...] and heating? Not hard at all 11/22/2021 [facility] of Occupat ional Health - Occupational Stress [...] living situation today? I have a [facility] place to live 03/30/2023 Education Answer Date Recorded What is the highest level of school you have completed or the highest degree you have received? Master's degree (e.g., MA, MS, Arti, MEd, CONSULTANT INTERNSHIP, GALA) 11/22/2021 Sex and Gender Information Value [...] AM CDT Clinical Communication Virtual Review in [place], [place] [address] [place] [address] 08/20/2023 8:40 AM CDT Appointment Department of Cardiovascular Diseases in [place], [place] [address] [place] [phone] Neisha Nolan APRN C.N.P., M.S.N. 08/20/2023 9:10 AM CDT Appointment Department of Laboratory Medicine and Pathology, [facility] in [place], [place] [address] [place] [phone] Neisha Nolan APRN, C.N.P., M.S.N. 08/20/2023 10:45 AM CDT Appointment Department of Cardiovascular Diseases in [place], [place] [address] [place] [phone] Rajat Pizarro M.B.B.S. [address] [place] [phone] 08/20/2023 1:15 PM CDT Appointment Department of Radiology, [facility] in [place], [place] [address] [place] [phone] Neisha Nolan APRN C.N.P., M.S.N. 08/21/2023 9:00 AM CDT Office Visit Department of Cardiovascular Medicine in [place], [place] [address] [place] [phone] Ghada Perdomo APRN, C.N.P., M.S.N. [address] [place] [phone] 08/21/2023 11:45 AM CDT Ancillary Procedure Department of Cardiovascular Medicine in [place], [place] [address] [place] [phone] Rajat Pizarro M.B.B.S. [address] [place] [phone] 08/21/2023 1:00 PM CDT Comprehensive Visit Department of Cardiovascular Medicine in [place], [place] [address] [place] [phone] Hamilton Babcock M.D. [address] [place] [phone] 10/21/2023 9:45 AM CDT Clinical Communication Virtual Review in [place], [place] [address] [place] [phone] 10/23/2023 7:30 AM CDT Diagnostic Division of Pulmonary Medicine in [place], [place] [address] [place] [phone] Rajat Pizarro M.B.B.S. [address] [place] [phone] 10/23/2023 8:40 AM CDT Appointment Department of Laboratory Medicine and Pathology, [facility], in [place], [place] [address] [place] [phone] Rajat Pizarro M.B.B.S. [address] [place] [phone] 10/23/2023 9:15 AM CDT Appointment Department of Radiology, [facility], in [place], [place] [address] [place] [phone] Rajat Pizarro M.B.B.S. [address] [place] [phone] 10/23/2023 10:00 AM CDT Office Visit Division of Rheumatology in [place], [place] [address] [place] [phone] Rajat Pizarro M.B.B.S. [address] [place] [address] documented as of this encounter Procedures Procedure [...] CRP (C-Reactive Protein) (06/12/2023 12:28 PM CDT) [facility] C-Reactive Protein (CRP), S 5.2(H) <5.0 mg/L 06/12/2023 1:27 PM CDT DT Blood (Blood, Venous) 06/12/2023 12:28 PM CDT 06/12/2023 1:04 PM CDT Olivia Arreguin M.D. LAB BLOOD ADD- ON Performing Organization Address City/[facility]/ZIP Co de Phone Number [facility] [address] [place] [address], [facility] [address] [place] [address] * HBc Total Ab, Serum (06/12/2023 12:28 PM CDT) [facility] HBc Total Ab, S Negative Negative 06/12/2023 8:08 PM CDT [facility] Blood (Blood, Venous) 06/12/2023 12:28 PM CDT 06/12/2023 4:50 PM CDT Olivia Arreguin M.D. LAB MICROBIOLO GY - BLOOD ORDERABLES Performing Organization Address City/[facility]/ZIP Co de Phone Number [facility] [address] [place] [address] [facility] [address] [place] [address] * HBs Antibody, Serum (06/12/2023 12:28 PM CDT) [facility] HBs Antibody, S Negative 06/12/2023 8:08 PM CDT [facility] Comment: Patient is presumed to be not immune to infection with HBV. ----REFERENCE VALUE---- Unvaccinated: Negative Vaccinated: Positive HBs Antibody, Quantitative, S <5.0 mIU/mL 06/12/2023 8:08 PM CDT [facility] Comment: ----REFERENCE VALUE---- Unvaccinated: <5.0 Vaccinated: >=12.0 Blood (Blood, Venous) 06/12/2023 12:28 PM CDT 06/12/2023 4:50 PM CDT Olivia Arreguin M.D. LAB MICROBIOLO GY - BLOOD ORDERABLES [facility] [address] [place] [address] [facility] [address] [place] [address] * (ABNORMAL) Comprehensive Metabolic Panel (06/12/2023 12:28 PM CDT) Pathologist [facility] Potassium, S 4.2 3.6 - 5.2 mmol/L [...] LAB BLOOD ADD- ON Performing Organization Address City/[facility]/ZIP Co de Phone Number [facility] [address] [place] [address], [place] [address] * Sedimentation Rate (06/12/2023 12:27 PM CDT) Sedimentation Rate, B 16 2 - 22 mm/h 06/12/2023 1:57 PM CDT DTL Blood (Blood, Venous) 06/12/2023 12:27 PM CDT 06/12/2023 12:51 PM CDT Olivia Arreguin M.D. LAB BLOOD ADD- ON [facility] 200 [place] [address], [place] [address] * HCV Ab w/Reflex to HCV PCR, Serum (06/12/2023 12:27 PM CDT) HCV Ab, S Negative Negative 06/14/2023 10:56 AM CDT [facility] Comment: Consumption of high-dose biotin supplement within 12 hours of blood collection for this test can cause false-negative results. Blood (Blood, Venous) 06/12/2023 12:27 PM CDT 06/12/2023 4:50 PM CDT Olivia Arreguin M.D. LAB MICROBIOLO GY - BLOOD ORDERABLES Performing Organization Address [facility]/ZIP Co de Phone Number [facility] [address] [place] [address] [facility] [address] [place] [address] * Hepatitis B Surface Antigen (06/12/2023 12:27 PM CDT) HBs Antigen, S Negative Negative 06/14/2023 10:56 AM CDT [facility] Blood (Blood, Venous) 06/12/2023 12:27 PM CDT 06/12/2023 4:50 PM CDT Olivia Arreguin M.D. LAB MICROBIOLO GY - BLOOD ORDERABLES Performing Organization Address [facility] de Phone Number [facility] [address] [place] [address] [facility] [address] [place] [address] * 1,25-Dihydroxyvitamin D (06/12/2023 12:27 PM CDT) 1, 25 DIHYDROXYVITAMIN D, S 41 18 - 78 pg/mL 06/14/2023 2:01 PM CDT [facility] Comment: ----ADDITIONAL INFORMATION---- This test was developed and its performance characteristics determined by [facility] in a manner consistent with CLIA requirements. This test has not been cleared or approved by the U.S. Food and Drug Administration. Blood (Blood, Venous) 06/12/2023 12:27 PM CDT 06/13/2023 7:43 AM CDT Olivia Arreguin M.D. LAB BLOOD ADD- ON Performing Organization Address City/[facility]/ZIP Co de Phone Number [facility] [address] [place] [address] [facility] [address] [place] [address] [place] [address] * (ABNORMAL) 25-Hydroxyvitamin D2 and D3 (06/12/2023 12:27 PM CDT) Pathologist [facility] 25-Hydroxy D2 <4.0 ng/mL 06/17/2023 1:31 [...] developed and its performance characteristics determined by [facility] in a manner consistent with CLIA requirements. This test has not been cleared or approved by the U.S. Food and Drug Administration. Blood (Blood, Venous) 06/12/2023 12:27 PM CDT 06/13/2023 7:17 AM CDT Olivia Arreguin M.D. LAB BLOOD ADD- ON [facility] [address] [place] [address] [facility] [address] [place] [address] [place] [address] * (ABNORMAL) CBC with Differential, Blood (06/12/2023 [...] Olivia Arreguin M.D. LAB BLOOD ADD- ON [facility] [address] [place] [address], [facility] DTL [facility] [address] [place] [address] DHPM [facility] [address] [place] [address] documented in this encounter Visit Diagnoses Diagnosis 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
--- OUTSIDE RECORDS SUMMARY | 2023-08-14 01:20 | XMS_ITS | Encounter Summary ---
Author Organization [facility] Address [address] [place] [address] Care Team Providers Care Manager Bakery Name Role Phone Unavailable Primary Care Provider Unavailabl e Encounter Details Date Type Department Care Team ([facility] st Contact Info) Description 06/21/2023 Documentation Division of Rheumatology in [place], [place] [address] [place] [phone] Rajat Pizarro M.B.B.S. [address] [place] [address] Social History Tobacco Use Types Packs/Day Years Used Date Smoking Tobacco: Former Cigarettes 0.5 10 0 02/25/1994 - 02/26/2004 Passive Smoke Exposure: Past Smokeless Tobacco: Never Alcohol Use Standard Drinks/Week Comments Yes 2 (1 standard drink = 0.6 oz pur e alcohol) [facility] Utilities Answer Date Recorded In the past 12 months has [facility] [employer], gas, oil, or water [employer] threatened to shut off services in your [...] How often do you attend chur or mormon services? More than 4 times per year [...] and heating? Not hard at all 11/22/2021 [facility] of Occupat ionne Health - Occupational Stress Questionnaire Answer Date [...] your living situation today? I have a [facility] place to live 03/30/2023 Education Answer Date Recorded What is the highest level of school you have completed or the highest degree you have received? Master's degree (e.g., MA, MS, Arti, MEd, YARN COMBER, GALA) 11/22/2021 Sex and Gender Information Value [...] strength while taking prednisone and for osteopenia): 7797-9654 mg total daily, calcium citrate preferred; buy [...] follow-up in the Division of Rheumatology at [facility]. Next appointment in 6 months along with cardiology sarcoidosis clinic Rheumatology-related medications: Prescriptions, laboratory monitoring, and refills will be managedby the Division of Rheumatology at [facility]. Disease flares or relapse: Division of Rheumatology flare management protocols will be implemented. Rajat SHIRLEY Rheumatology documented in this encounter Plan of Treatment Upcoming Encounters Date Type Department Care Team (Latest Contact Info) Description 08/16/2023 8:15 AM CDT Clinical Communication Virtual Review in [place], [place] 200 [place] [address] 08/20/2023 8:40 AM CDT Appointment Department of Cardiovascular Diseases in [place], [place] [address] [place] [phone] Neisha Nolan APRN, C.N.P., M.S.N. 08/20/2023 9:10 AM CDT Appointment Department of Laboratory Medicine and Pathology, [facility] in [place], [place] [address] [place] [phone] Neisha Nolan APRN, C.N.P., M.S.N. 08/20/2023 10:45 AM CDT Appointment Department of Cardiovascular Diseases in [place], [place] [address] [place] [address] Rajat Pizarro M.Mehnaz.B.S. [address] [place] [phone] 08/20/2023 1:15 PM CDT Appointment Department of Radiology, [facility], in [place], [place] [address] [place] [phone] Neisha Noaln APRN, C.N.P., M.S.N. 08/21/2023 9:00 AM CDT Office Visit Department of Cardiovascular Medicine in [place], [place] [address] [place] [phone] Ghada Perdomo APRN, C.N.P., M.S.N. [address] [place] [phone] 08/21/2023 11:45 AM CDT Ancillary Procedure Department of Cardiovascular Medicine in [place], [place] [address] [place] [phone] Rajat Pizarro M.B.B.S. [address] [place] [phone] 08/21/2023 1:00 PM CDT Comprehensive Visit Department of Cardiovascular Medicine in [place], [place] [address] [place] [phone] Hamilton Babcock M.D. [address] [place] [phone] 10/21/2023 9:45 AM CDT Clinical Communication Virtual Review in [place], [place] 200 [place] [address] 10/23/2023 7:30 AM CDT Diagnostic Division of Pulmonary Medicine in [place], [place] [address] [place] [phone] Rajat Pizarro M.B.B.S. [address] [place] [phone] 10/23/2023 8:40 AM CDT Appointment Department of Laboratory Medicine and Pathology, [facility] in [place], [place] [address] [place] [phone] Rajat Pizarro M.B.B.S. [address] [place] [phone] 10/23/2023 9:15 AM CDT Appointment Department of Radiology, [facility], in [place], [place] [address] [place] [phone] Rajat Pizarro M.B.B.S. [address] [place] [address] 10/23/2023 10:00 AM CDT Office Visit Division of Rheumatology in [place], [place] [address] [place] [address] Rajat Pizarro M.B.B.S. [address] [place] [address] documented as of this encounter Visit Diagnoses Diagnosis Sarcoidosis- Primary Monitoring For Therapeutic Drug Therapy Osteopenia documented in this encounter
--- OUTSIDE RECORDS SUMMARY | 2023-08-14 01:20 | XMS_ITS | Encounter Summary ---
Author Organization [facility] Address [address] [place] [address] Care Team Providers Care Oil Well Fishing Tool Operator Name Role Phone Unavailable Primary Care Provider Unavailabl e Encounter Details Date Type Department Care Team ([facility] st Contact Info) Description 07/31/2023 Clinical Communication Division of Rheumatology in [place], [place] [address] [place] [address] Rajat Pizarro M.B.B.S. [address] [place] [address] Social History Tobacco Use Types Packs/Day Years Used Date Smoking Tobacco: Former Cigarettes 0.5 10 0 02/25/1994 - 02/26/2004 Passive Smoke Exposure: Past Smokeless Tobacco: Never Alcohol Use Standard Drinks/Week Comments Yes 2 (1 standard drink = 0.6 oz pur e alcohol) [facility] Utilities Answer Date Recorded In the past 12 months has [facility] [employer], gas, oil, or water [employer] threatened to shut off services in [...] How often do you attend chur or catholic services? More than 4 times per year 11/22/2021 Do you belong to any clubs o r organizations such as orthodoxy groups, unions, fraternal or athletic groups, or [...] and heating? Not hard at all 11/22/2021 [facility] of Occupat ional Health - Occupational [...] your living situation today? I have a [facility] place to live 03/30/2023 Education Answer Date Recorded What is the highest level of school you have completed or the highest degree you have received? Master's degree (e.g., MA, MS, Arti, MEd, OPERATIONS RESEARCH MANAGER, GALA) 11/22/2021 Sex and Gender Information Value Date Recorded Sex Assigned at Female 11/22/2021 11:24 PM CDT Gender Identity Female 11/22/2021 11:24 PM CDT Sexual Orientation Lesbian or Alonso 11/22/2021 11 :24 PM CDT documented as of this encounter Plan of Treatment Upcoming Encounters Date Type Department Care Team (Latest Contact Info) Description 08/16/2023 8:15 AM CDT Clinical Communication Virtual Review in [place], [place] [address] [place] [address] 08/20/2023 8:40 AM CDT Appointment Department of Cardiovascular Diseases in [place], [place] [address] [place] [address] Neisha Nolan, JESSIKA, C.N.P., M.S.N. 08/20/2023 9:10 AM CDT Appointment Department of Laboratory Medicine and Pathology, [facility], in [place], [place] [address] [place] [phone] Neisha Nolan APRN, C.N.P., M.S.N. 08/20/2023 10:45 AM CDT Appointment Department of Cardiovascular Diseases in [place], [place] [address] [place] [address] Rajat Pizarro M.Mehnaz.B.S. [address] [place] [phone] 08/20/2023 1:15 PM CDT Appointment Department of Radiology, [facility], in [place], [place] [address] [place] [phone] Neisha Nolan APRN, C.N.P., M.S.N. 08/21/2023 9:00 AM CDT Office Visit Department of Cardiovascular Medicine in [place], [place] [address] [place] [phone] Ghada Perdomo APRN, C.N.P., M.S.N. [address] [place] [phone] 08/21/2023 11:45 AM CDT Ancillary Procedure Department of Cardiovascular Medicine in [place], [place] [address] [place] [phone] Rajat Pizarro M.Mehnaz.B.S. [address] [place] [phone] 08/21/2023 1:00 PM CDT Comprehensive Visit Department of Cardiovascular Medicine in [place], [place] [address] [place] [phone] Hamilton Babcock M.D. [address] [place] [phone] 10/21/2023 9:45 AM CDT Clinical Communication Virtual Review in [place], [place] [address] [place] [address] 10/23/2023 7:30 AM CDT Diagnostic Division of Pulmonary Medicine in [place], [place] [address] [place] [phone] Rajat Pizarro M.B.B.S. [address] [place] [phone] 10/23/2023 8:40 AM CDT Appointment Department of Laboratory Medicine and Pathology, [facility] in [place], [place] [address] [place] [phone] Rajat Pizarro M.B.B.S. [address] [place] [phone] 10/23/2023 9:15 AM CDT Appointment Department of Radiology, [facility] in [place], [place] [address] [place] [phone] Rajat Pizarro M.B.B.S. [address] [place] [phone] 10/23/2023 10:00 AM CDT Office Visit Division of Rheumatology in [place], [place] [address] [place] [phone] Rajat Pizarro M.BSandieB.S. [address] [place] [phone] documented as of this encounter Visit Diagnoses Not on filedocumented in this encounter Additional Health Concerns Infection Onset Date Last Indicated Resolved Time Protective Environment 07/31/2023 07/31/2023 documented as of this encounter
--- OUTSIDE RECORDS SUMMARY | 2023-08-14 01:20 | XMS_ITS | Encounter Summary ---
Author Organization [facility] Address [address] [place] [address] Care Team Providers Care Cleaning Technician Name Role Phone Unavailable Primary Care Provider Unavailabl e Reason for Visit * Reason Onset Date Comments Documentation 08/01/2023 Encounter Details Date Type Department Care Team (Latest Contact Info) Description 08/01/2023 Clinical Communication Department of Cardiovascular Medicine in [place], [place] [address] [place] [address] Heel SprayerZain M.D. Documentation Social History Tobacco Use Types Packs/Day Years Used Date Smoking Tobacco: Former Cigarettes 0.5 10 0 02/25/1994 - 02/26/2004 Passive Smoke Exposure: Past Smokeless Tobacco: Never Alcohol Use Standard Drinks/Week Comments Yes 2 (1 standard drink = 0.6 oz pur e alcohol) [facility] Utilities Answer Date Recorded In the past 12 months has [facility] [employer], gas, oil, or water [employer] threatened to shut off services in your [...] often do you attend chur ch or synagogue services? More than 4 times per year 11/22/2021 Do you belong to any clubs o r organizations such as spiritism groups, unions, fraternal or athletic groups, or [...] and heating? Not hard at all 11/22/2021 [facility] - Occupational Stress Questionnaire Answer Date [...] Master's degree (e.g., MA, MS, Arti, MEd, UPSET OPERATOR, GALA) 11/22/2021 Sex and Gender Information [...] contact the patient's primary provider. [facility]' Nurse Chart Review: [...] AM CDT Phone (Incoming) Nighat SENIOR (Coworker/Associate) [phone] Other Appointment was scheduled by a colleague without triage Patient was notified already of appointment Nighat called me to reschedule the testing to a different time documented in this encounter Plan of Treatment Upcoming Encounters Date Type Department Care Team (Latest Contact Info) Description 08/16/2023 8:15 AM CDT Clinical Communication Virtual Review in [place], [place] 200 [place] [address] 08/20/2023 8:40 AM CDT Appointment Department of Cardiovascular Diseases in [place], [place] [address] [place] [phone] Neisha Nolan APRN, C.N.P., M.S.N. 08/20/2023 9:10 AM CDT Appointment Department of Laboratory Medicine and Pathology, [facility], in [place], [place] [address] [place] [phone] Neisha Nolan APRN, C.N.P., M.S.N. 08/20/2023 10:45 AM CDT Appointment Department of Cardiovascular Diseases in [place], [place] [address] [place] [phone] Rajat Pizarro M.B.B.S. [address] [place] [phone] 08/20/2023 1:15 PM CDT Appointment Department of Radiology, [facility], in [place], [place] [address] [place] [phone] Neisha Nolan APRN, C.N.Cheryl., M.S.N. 08/21/2023 9:00 AM CDT Office Visit Department of Cardiovascular Medicine in [place], [place] [address] [place] [phone] Ghada Perdomo APRN, YasNJae., M.S.N. [address] [place] [phone] 08/21/2023 11:45 AM CDT Ancillary Procedure Department of Cardiovascular Medicine in [place], [place] [address] [place] [phone] Rajat Pizarro M.B.B.S. [address] [place] [phone] 08/21/2023 1:00 PM CDT Comprehensive Visit Department of Cardiovascular Medicine in [place], [place] [address] [place] [phone] Hamilton Babcock M.D. [address] [place] [phone] 10/21/2023 9:45 AM CDT Clinical Communication Virtual Review in [address] [phone] 10/23/2023 7:30 AM CDT Diagnostic Division of Pulmonary Medicine in [address] [phone] Rajat Pizarro M.B.B.S. [address] [place] [phone] 10/23/2023 8:40 AM CDT Appointment Department of Laboratory Medicine and Pathology, [facility] in [place], [place] [address] [place] [address] Rajat Pizarro M.B.B.S. [address] [place] [address] 10/23/2023 9:15 AM CDT Appointment Department of Radiology, [facility], in [place], [place] [address] [place] [address] Rajat Pizarro M.B.B.S. [address] [place] [phone] 10/23/2023 10:00 AM CDT Office Visit Division of Rheumatology in [place], [place] [address] [place] [address] Rajat Pizarro M.B.B.S. [address] [place] [phone] documented as of this encounter Visit Diagnoses Not on filedocumented in this encounter Additional Health Concerns Infection Onset Date Last Indicated Resolved Time Protective Environment 07/31/2023 07/31/2023 documented as of this encounter
--- OUTSIDE RECORDS SUMMARY | 2023-08-14 01:20 | XMS_ITS | Encounter Summary ---
Author Organization [facility] Address [address] [place] [address] Care Team Providers Care Pilot Fuel Engineer Name Role Phone Unavailable Primary Care Provider Unavailabl e Encounter Details Date Type Department Care Team (Latest Contact Info) Description 06/12/2023 12:00 PM CDT Hospital Encounter Department of Laboratory Medicine and Pathology, [facility], in [place], [place] [address] [place] [address] Olivia Arreguin M.D. [address] [place] [address] Sarcoidosis; Immunodeficiency Due To Drugs (HCC) Discharge [...] In the past 12 months has [employer] gas, oil, or water [employer] threatened to shut off services in your [...] How often do you attend chur or roman catholic services? More than 4 times per [...] and heating? Not hard at all 11/22/2021 [facility] - Occupational [...] your living situation today? I have a [facility] place to live 03/30/2023 Education Answer Date Recorded What is the highest level of school you have completed or the highest degree you have received? Master's degree (e.g., MA, MS, Arti, MEd, SUPERVISOR CELL OPERATION, GALA) 11/22/2021 Sex and Gender Information Value [...] AM CDT Clinical Communication Virtual Review in [place], [place] [address] [place] [address] 08/20/2023 8:40 AM CDT Appointment Department of Cardiovascular Diseases in [place], [place] [address] [place] [phone] Neisha Nolan APRN, C.N.P., M.S.N. 08/20/2023 9:10 AM CDT Appointment Department of Laboratory Medicine and Pathology, [facility] in [place], [place] [address] [place] [phone] Neisha Nolan APRN, C.N.P., M.S.N. 08/20/2023 10:45 AM CDT Appointment Department of Cardiovascular Diseases in [place], [place] [address] [place] [phone] Rajat Pizarro M.B.B.S. [address] [place] [phone] 08/20/2023 1:15 PM CDT Appointment Department of Radiology, [facility] in [place], [place] [address] [place] [phone] Neisha Nolan APRN, C.N.P., M.S.N. 08/21/2023 9:00 AM CDT Office Visit Department of Cardiovascular Medicine in [place], [place] [address] [place] [phone] Ghada Perdomo APRN, C.N.P., M.S.N. [address] [place] [phone] 08/21/2023 11:45 AM CDT Ancillary Procedure Department of Cardiovascular Medicine in [place], [place] [address] [place] [phone] Rajat Piazrro M.B.B.S. [address] [place] [phone] 08/21/2023 1:00 PM CDT Comprehensive Visit Department of Cardiovascular Medicine in [place], [place] [address] [place] [phone] Hamilton Babcock M.D. [address] [place] [phone] 10/21/2023 9:45 AM CDT Clinical Communication Virtual Review in [place], [place] 200 [place] [address] 10/23/2023 7:30 AM CDT Diagnostic Division of Pulmonary Medicine in [place], [place] [address] [place] [phone] Rajat Pizarro M.B.B.S. [address] [place] [phone] 10/23/2023 8:40 AM CDT Appointment Department of Laboratory Medicine and Pathology, [facility], in [place], [place] [address] [place] [phone] Rajat Pizarro M.B.B.S. [address] [place] [phone] 10/23/2023 9:15 AM CDT Appointment Department of Radiology, [facility], in [place], [place] [address] [place] [phone] Rajat Pizarro M.B.B.S. [address] [place] [phone] 10/23/2023 10:00 AM CDT Office Visit Division of Rheumatology in [place], [place] [address] [place] [address] Rajat Pizarro M.B.BSandieSSandie [address] [place] [address] documented as of this encounter Procedures Procedure [...] Olivia Arreguin M.D. LAB URINE AYANADon RAÚL [facility] 200 [place] [address], [facility] 200 [place] [address] * pH, Urine (06/12/2023 12:31 PM CDT) pH, U 5.8 4.5 - 8.0 06/12/2023 1:4 8 PM CDT DTL Urine 06/12/2023 12:3 1 PM CDT 06/12/2023 12:53 PM CDT Olivia Arreguin M.D. LAB URINE AYANADon RAÚL Performing Organization Address City/[facility]/ZIP Co de Phone Number [facility] 200 [place], [place] [address] [place] [address] 200 [place] [address] * Osmolality, Urine (06/12/2023 12:31 PM CDT) Osmolality, U 804 150 - 1150 mOsm/kg 06/12/2023 1:48 PM CDT DTL Urine 06/12/2023 12:3 1 PM CDT 06/12/2023 12:53 PM CDT Olivia Arreguin M.D. LAB URINE ALEXANDER OLSEN [facility] [address] [place] [address], [facility] 200 [place] [address] * Microscopic Automated (06/12/2023 12:31 PM CDT) [...] LAB URINE ALEXANDER OLSEN Performing Organization Address [facility] Co de Phone Number [facility] 200 [place] [address], [address] [address] * Protein/Creatinine Ratio, Random, Urine (06/12/2023 12:31 [...] LAB URINE ALEXANDER OLSEN Performing Organization Address [facility]/ZIP Co de Phone Number [address] [address], [address] [address] * Urinalysis, with Microscopic: Urine, Midstream (06/12/2023 [...] City/[facility]/ZIP Co de Phone Number [facility] [address] [place] [address], [facility] [address] [place] [address] * Calcium/Creatinine Ratio, Random, Urine (06/12/2023 12:31 [...] City/[facility]/ZIP Co de Phone Number [facility] [address] [place] [address], [facility] DTL [facility] [address] [place] [address] documented in this encounter Visit Diagnoses Diagnosis 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
--- OUTSIDE RECORDS SUMMARY | 2023-08-14 01:20 | XMS_ITS | Encounter Summary ---
Author Organization [facility] Address [address] [place] [address] Care Team Providers Care Mold Puller Name Role Phone Unavailable Primary Care Provider Unavailabl e Reason for Visit * Reason Comments Med Refill Encounter Details Date Type Department Care Team (Late st Contact Info) Description 08/06/2023 Refill Division of Rheumatology in [place], [place] [address] [place] [phone] Rajat Pizarro M.B.B.S. [address] [place] [address] Med Refill Social History Tobacco Use Types Packs/Day Years Used Date Smoking Tobacco: Former Cigarettes 0.5 10 0 02/25/1994 - 02/26/2004 Passive Smoke Exposure: Past Smokeless Tobacco: Never Alcohol Use Standard Drinks/Week Comments Yes 2 (1 standard drink = 0.6 oz pur e alcohol) [facility] Utilities Answer Date Recorded In the past 12 months has [facility] [employer], oil, or water [employer] threatened to shut off services in your [...] How often do you attend chur or mu-ism services? More than 4 times per year 11/22/2021 Do you belong to any clubs o r organizations such as yarsani groups, unions, fraternal or athletic groups, or [...] and heating? Not hard at all 11/22/2021 [facility] ional [facility] [...] Master's degree (e.g., MA, MS, Arti, Adria, SERVICE PLANNER, GALA) 11/22/2021 Sex and Gender Information Value Date Recorded Sex Assigned at Female 11/22/2021 11:24 PM CDT Gender Identity Female 11/22/2021 11:24 PM CDT Sexual Orientation Lesbian or Alonso 11/22/2021 11 :24 PM CDT documented as of this encounter Plan of Treatment Upcoming Encounters Date Type Department Care Team (Latest Contact Info) Description 08/16/2023 8:15 AM CDT Clinical Communication Virtual Review in [place], [place] [address] [place] [address] 08/20/2023 8:40 AM CDT Appointment Department of Cardiovascular Diseases in [place], [place] [address] [place] [address] Neisha Nolan, JESSIKA, C.N.P., M.S.N. 08/20/2023 9:10 AM CDT Appointment Department of Laboratory Medicine and Pathology, [facility] in [place], [place] [address] [place] [address] Neisha Nolan APRN, C.NCher, M.S.N. 08/20/2023 10:45 AM CDT Appointment Department of Cardiovascular Diseases in [place], [place] [address] [place] [address] Rajat Pizarro M.Mehnaz.B.S. [address] [place] [phone] 08/20/2023 1:15 PM CDT Appointment Department of Radiology, [facility] in [place], [place] [address] [place] [address] Neisha Nolan APRN, C.N.P., M.S.N. 08/21/2023 9:00 AM CDT Office Visit Department of Cardiovascular Medicine in [place], [place] [address] [place] [phone] Ghada Perdomo APRN, YasNJae., M.S.N. [address] [place] [phone] 08/21/2023 11:45 AM CDT Ancillary Procedure Department of Cardiovascular Medicine in [place], [place] [address] [place] [phone] Rajat Pizarro M.B.B.S. [address] [place] [phone] 08/21/2023 1:00 PM CDT Comprehensive Visit Department of Cardiovascular Medicine in [place], [place] [address] [place] [phone] Hamilton aBbcock M.D. [address] [place] [phone] 10/21/2023 9:45 AM CDT Clinical Communication Virtual Review in [place], [place] [address] [place] [address] 10/23/2023 7:30 AM CDT Diagnostic Division of Pulmonary Medicine in [place], [place] [address] [place] [phone] Rajat Pizarro M.B.B.S. [address] [place] [phone] 10/23/2023 8:40 AM CDT Appointment Department of Laboratory Medicine and Pathology, [facility] in [place], [place] [address] [place] [phone] Rajat Pizarro M.B.B.S. [address] [place] [phone] 10/23/2023 9:15 AM CDT Appointment Department of Radiology, [facility] in [place], [place] [address] [place] [phone] Rajat Pizarro M.B.B.S. [address] [place] [phone] 10/23/2023 10:00 AM CDT Office Visit Division of Rheumatology in [place], [place] [address] [place] [phone] Rajat Pizarro M.B.B.S. [address] [place] [phone] documented as of this encounter Visit Diagnoses Diagnosis Sarcoidosis Monitoring For Therapeutic Drug Therapy Osteopenia documented in this encounter Additional Health Concerns Infection Onset Date Last Indicated Resolved Time Protective Environment 07/31/2023 07/31/2023 documented as of this encounter
--- OUTSIDE RECORDS SUMMARY | 2023-08-14 01:20 | XMS_ITS | Encounter Summary ---
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 [employer] Social History Tobacco Use Types Packs/Day Years Used Date Smoking Tobacco: Former Cigarettes 0.5 10 0 02/25/1994 - 02/26/2004 Passive Smoke Exposure: Past Smokeless Tobacco: Never Alcohol Use Standard Drinks/Week Comments Yes 2 (1 standard drink = 0.6 oz pur e alcohol) [facility] Utilities Answer Date Recorded In the past 12 months has [facility] [employer], gas, oil, or water [employer] threatened to shut off services in your [...] often do you attend chur ch or confucianism services? More than 4 times per year 11/22/2021 Do you belong to any clubs o r organizations such as presybeterian groups, unions, fraternal or athletic groups, or [...] and heating? Not hard at all 11/22/2021 [facility] - Occupational Stress Questionnaire Answer [...] your living situation today? I have a [facility] place to live 03/30/2023 Education Answer Date Recorded What is the highest level of school you have completed or the highest degree you have received? Master's degree (e.g., MA, MS, Arti, MEd, ELECTRICIAN YARD, GALA) 11/22/2021 Sex and Gender Information Value Date Recorded Sex Assigned at Female 11/22/2021 11:24 PM CDT Gender Identity Female 11/22/2021 11:24 PM CDT Sexual Orientation Lesbian or Alonso 11/22/2021 11 :24 PM CDT documented as of this encounter Plan of Treatment Upcoming Encounters Date Type Department Care Team (Latest Contact Info) Description 08/16/2023 8:15 AM CDT Clinical Communication Virtual Review in [place], [place] [address] [place] [address] 08/20/2023 8:40 AM CDT Appointment Department of Cardiovascular Diseases in [place], [place] [address] [place] [phone] Neisha Nolan APRN, C.N.P., M.S.N. 08/20/2023 9:10 AM CDT Appointment Department of Laboratory Medicine and Pathology, [facility], in [place], [place] [address] [place] [phone] Neisha Nolan APRN, C.N.P., M.S.N. 08/20/2023 10:45 AM CDT Appointment Department of Cardiovascular Diseases in [place], [place] [address] [place] [address] Rajat Pizarro I., Flores.B.B.S. [address] [place] [phone] 08/20/2023 1:15 PM CDT Appointment Department of Radiology, [facility], in [place], [place] [address] [place] [phone] Neisha Nolan APRN, C.N.P., M.S.N. 08/21/2023 9:00 AM CDT Office Visit Department of Cardiovascular Medicine in [place], [place] [address] [place] [phone] Ghada Perdomo APRN, C.N.P., M.S.N. [address] [place] [phone] 08/21/2023 11:45 AM CDT Ancillary Procedure Department of Cardiovascular Medicine in [place], [place] [address] [place] [phone] Rajat Pizarro I., Flores.B.B.S. [address] [place] [phone] 08/21/2023 1:00 PM CDT Comprehensive Visit Department of Cardiovascular Medicine in [place], [place] [address] [place] [phone] Hamilton Babcock M.D. [address] [place] [phone] 10/21/2023 9:45 AM CDT Clinical Communication Virtual Review in [place], [place] 200 [place] [address] 10/23/2023 7:30 AM CDT Diagnostic Division of Pulmonary Medicine in [place], [place] [address] [place] [address] Rajat Pizarro M.B.B.S. [address] [place] [phone] 10/23/2023 8:40 AM CDT Appointment Department of Laboratory Medicine and Pathology, [facility] in [place], [place] [address] [place] [address] Rajat Pizarro M.B.B.S. [address] [place] [phone] 10/23/2023 9:15 AM CDT Appointment Department of Radiology, [facility] in [place], [place] [address] [place] [address] Rajat Pizarro M.B.B.S. [address] [place] [phone] 10/23/2023 10:00 AM CDT Office Visit Division of Rheumatology in [place], [place] [address] [place] [address] Rajat Pizarro M.B.B.S. [address] [place] [phone] documented as of this encounter Visit Diagnoses Not on filedocumented in this encounter Additional Health Concerns Infection Onset Date Last Indicated Resolved Time Protective Environment 07/31/2023 07/31/2023 documented as of this encounter
--- OUTSIDE RECORDS SUMMARY | 2023-08-14 01:20 | XMS_ITS | Encounter Summary ---
Author Organization [facility] Address [address] [place] [address] Care Team Providers Care Quality Control Scientist Name Role Phone Unavailable Primary Care Provider Unavailabl e Reason for Referral * Outpatient (Routine) - Authorized Specialty Diagnoses / Procedures Referred By Contac t Referred To Contact Diagnoses Sarcoidosis Procedures ECG 12 Lead Rajat Pizarro M.B.B.S. [address] [place] [phone] [facility] Referral ID Status Reason Start Date Expiration Date V isits Requested Visits Authorized [id number] Authorized 08/01/2023 07/31/2024 1 1 * Outpatient (Routine) - Authorized Specialty Diagnoses / Procedures Referred By Contact Referred To Contact Cardiovascular Diseases / Cardiovascular Disease Diagnoses Sarcoidosis Rajat Pizarro M.B.B.S. [address] [place] [phone] [facility] Referral ID Status Reason Start Date Expiration Date V isits Requested Visits Authorized [id number] Authorized 08/01/2023 01/30/2025 1 1 Encounter Details Date Type Department Care Team (Late st Contact Info) Description 08/01/2023 Orders Only Division of Rheumatology in [place], [place] [address] [place] [phone] Rajat Pizarro M.B.B.S. 200 [place] [address] Sarcoidosis (Primary Dx) Social History Tobacco Use Types Packs/Day Years Used Date Smoking Tobacco: Former Cigarettes 0.5 10 0 02/25/1994 - 02/26/2004 Passive Smoke Exposure: Past Smokeless Tobacco: Never Alcohol Use Standard Drinks/Week Comments Yes 2 (1 standard drink = 0.6 oz pur e alcohol) [facility] Utilities Answer Date Recorded In [...] often do you attend chur ch or buddhist services? More than 4 times per year 11/22/2021 Do you belong to any clubs o r organizations such as sikhism groups, unions, fraternal or athletic groups, or [...] and heating? Not hard at all 11/22/2021 [facility] of Occupat ional Health - Occupational Stress [...] your living situation today? I have a [facility] place to live 03/30/2023 Education Answer Date Recorded What is the highest level of school you have completed or the highest degree you have received? Master's degree (e.g., MA, MS, Arti, MEd, DETECTIVE NARCOTICS [employer] VICE, [employer]) 11/22/2021 Sex and Gender Information Value Date Recorded Sex Assigned at Female 11/22/2021 11:24 PM CDT Gender Identity Female 11/22/2021 11:24 PM CDT Sexual Orientation Lesbian or Alonso 11/22/2021 11 :24 PM CDT documented as of this encounter Plan of Treatment Upcoming Encounters Date Type Department Care Team (Latest Contact Info) Description 08/16/2023 8:15 AM CDT Clinical Communication Virtual Review in [place], [place] [address] [place] [address] 08/20/2023 8:40 AM CDT Appointment Department of Cardiovascular Diseases in [place], [place] [address] [place] [phone] Neisha Nolan APRN C.N.P., M.S.N. 08/20/2023 9:10 AM CDT Appointment Department of Laboratory Medicine and Pathology, [facility] in [place], [place] [address] [place] [phone] Neisha Nolan APRN, C.N.P., M.S.N. 08/20/2023 10:45 AM CDT Appointment Department of Cardiovascular Diseases in [place], [place] [address] [place] [phone] Rajat Pizarro M.B.B.S. [address] [place] [phone] 08/20/2023 1:15 PM CDT Appointment Department of Radiology, [facility] in [place], [place] [address] [place] [address] Neisha Nolan APRN, C.N.P., M.S.N. 08/21/2023 9:00 AM CDT Office Visit Department of Cardiovascular Medicine in [place], [place] [address] [place] [phone] Ghada Perdomo APRN, C.N.P., M.S.N. [address] [place] [phone] 08/21/2023 11:45 AM CDT Ancillary Procedure Department of Cardiovascular Medicine in [place], [place] [address] [place] [phone] Rajat Pizarro M.B.B.S. [address] [place] [phone] 08/21/2023 1:00 PM CDT Comprehensive Visit Department of Cardiovascular Medicine in [place], [place] [address] [place] [phone] Hamilton Babcock M.D. [address] [place] [phone] 10/21/2023 9:45 AM CDT Clinical Communication Virtual Review in [place], [place] 200 [place] [address] 10/23/2023 7:30 AM CDT Diagnostic Division of Pulmonary Medicine in [place], [place] [address] [place] [phone] Rajat Pizarro M.B.B.S. [address] [place] [phone] 10/23/2023 8:40 AM CDT Appointment Department of Laboratory Medicine and Pathology, [facility], in [place], [place] [address] [place] [phone] Rajat Pizarro M.B.B.S. [address] [place] [phone] 10/23/2023 9:15 AM CDT Appointment Department of Radiology, [facility], in [place], [place] [address] [place] [address] Rajat Pizarro M.B.B.S. [address] [place] [phone] 10/23/2023 10:00 AM CDT Office Visit Division of Rheumatology in [place], [place] [address] [place] [address] Rajat Pizarro M.B.B.S. [address] [place] [address] Scheduled Orders Name Type Priority Associated Diagnoses Order Schedule Basic Metabolic Panel Lab Routine Sarcoidosis Expected: 08/01/2023, Expires: 10/31/2024 Thyroid Function [place] [facility] Routine Sarcoidosis Expected: 08/01/2023, Expires: 10/31/2024 [...]
--- OUTSIDE RECORDS SUMMARY | 2023-08-14 01:20 | XMS_ITS | Encounter Summary ---
Author Organization [facility] Address [address] [place] [address] Care Team Providers Care Artist Consultant Name Role Phone Unavailable Primary Care Provider Unavailabl e Encounter Details Date Type Department Care Team ([facility] st Contact Info) Description 06/12/2023 11:30 AM CDT Education Division of Rheumatology in [place], [place] [address] [place] [phone] Olivia Arreguin M.D. [address] [place] [phone] Clark Beebe RSandieNSandie [address] [place] [phone] Sarcoidosis; Immunodeficiency Due To Drugs (HCC) Social History Tobacco Use Types Packs/Day Years Used Date Smoking Tobacco: Former Cigarettes 0.5 10 0 02/25/1994 - 02/26/2004 Passive Smoke Exposure: Past Smokeless Tobacco: Never Alcohol Use Standard Drinks/Week Comments Yes 2 (1 standard drink = 0.6 oz pur e alcohol) [facility] Utilities Answer Date Recorded In the [...] any clubs o r organizations such as restorationist groups, unions, fraternal or athletic groups, or [...] and heating? Not hard at all 11/22/2021 [facility] Cutler of Occupat ional Health - Occupational Stress [...] your living situation today? I have a [facility] place to live 03/30/2023 Education Answer Date Recorded What is the highest level of school you have completed or the highest degree you have received? Master's degree (e.g., MA, MS, Arti, MEd, CREDIT ASSISTANT, [employer]) 11/22/2021 Sex and Gender Information Value [...] AM CDT Clinical Communication Virtual Review in [place], [place] 200 [place] [address] 08/20/2023 8:40 AM CDT Appointment Department of Cardiovascular Diseases in [place], [place] [address] [place] [phone] Neisha Nolan APRN, C.N.P., M.S.N. 08/20/2023 9:10 AM CDT Appointment Department of Laboratory Medicine and Pathology, [facility] in [address] [phone] Neisha Nolan APRN, C.N.P., M.S.N. 08/20/2023 10:45 AM CDT Appointment Department of Cardiovascular Diseases in [place], [place] [address] [place] [phone] Rajat Pizarro M.B.B.S. [address] [place] [phone] 08/20/2023 1:15 PM CDT Appointment Department of Radiology, [facility] in [place], [place] [address] [place] [phone] Neisha Nolan APRN, C.N.P., M.S.N. 08/21/2023 9:00 AM CDT Office Visit Department of Cardiovascular Medicine in [address] [phone] Ghada Perdomo APRN, C.N.P., M.S.N. [address] [place] [phone] 08/21/2023 11:45 AM CDT Ancillary Procedure Department of Cardiovascular Medicine in [place], [place] [address] [place] [phone] Rajat Pizarro M.B.B.S. [address] [place] [phone] 08/21/2023 1:00 PM CDT Comprehensive Visit Department of Cardiovascular Medicine in [place], [place] [address] [place] [phone] Hamilton Babcock M.D. [address] [place] [phone] 10/21/2023 9:45 AM CDT Clinical Communication Virtual Review in [place], [place] 200 [place] [address] 10/23/2023 7:30 AM CDT Diagnostic Division of Pulmonary Medicine in [place], [place] [address] [place] [phone] Rajat Pizarro M.B.B.S. [address] [place] [phone] 10/23/2023 8:40 AM CDT Appointment Department of Laboratory Medicine and Pathology, [facility] in [place], [place] [address] [place] [phone] Rajat Pizarro M.B.B.S. [address] [place] [phone] 10/23/2023 9:15 AM CDT Appointment Department of Radiology, [facility], in [place], [place] [address] [place] [phone] Rajat Pizarro I. M.B.B.S. [address] [place] [address] 10/23/2023 10:00 AM CDT Office Visit Division of Rheumatology in [place], [place] [address] [place] [address] Rajat Pizarro M.B.B.S. 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
--- OUTSIDE RECORDS SUMMARY | 2023-08-14 01:21 | XMS_ITS | Encounter Summary ---
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 Name Role Phone Unavailable Primary Care Provider Unavailabl e Reason for Visit * Reason Onset Date Comments Pre-visit Intake 06/11/2023 INDIRA done 06/10 E EF Encounter Details Date Type Department Care Team (Latest Contact Info) Description 06/11/2023 9:00 AM CDT Clinical Communication Virtual Review in [place], [place] 200 [place] [address] Pre-visit Intake (INDIRA done 06/10 EEF) Social History Tobacco Use Types Packs/Day Years Used Date Smoking Tobacco: Former Cigarettes 0.5 10 0 02/25/1994 - 02/26/2004 Passive Smoke Exposure: Past Smokeless Tobacco: Never Tobacco Cessation:Counseling Given: Not Answered Alcohol Use Standard Drinks/Week Comments Yes 2 (1 standard drink = 0.6 oz pur e alcohol) [facility] Utilities Answer Date Recorded In the past 12 months has [facility] [employer], gas, oil, or water [employer] threatened to shut off services in your [...] How often do you attend chur or rastafari services? More than 4 times [...] and heating? 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, [employer]) 11/22/2021 Sex and Gender Information Value Date Recorded Sex Assigned at Female 11/22/2021 11:24 PM CDT Gender Identity Female 11/22/2021 11:24 PM CDT Sexual Orientation Lesbian or Alonso 11/22/2021 11 :24 PM CDT documented as of this encounter Plan of Treatment Upcoming Encounters Date Type Department Care Team (Latest Contact Info) Description 08/16/2023 8:15 AM CDT Clinical Communication Virtual Review in [place], [place] [address] [place] [address] 08/20/2023 8:40 AM CDT Appointment Department of Cardiovascular Diseases in [place], [place] [address] [place] [phone] Neisha Nolan, EJSSIKA, C.N.P., M.S.N. 08/20/2023 9:10 AM CDT Appointment Department of Laboratory Medicine and Pathology, [facility], in [place], [place] [address] [place] [phone] Neisha Nolan APRN, C.N.P., M.S.N. 08/20/2023 10:45 AM CDT Appointment Department of Cardiovascular Diseases in [place], [place] [address] [place] [address] Rajat Pizarro M.Mehnaz.B.S. [address] [place] [phone] 08/20/2023 1:15 PM CDT Appointment Department of Radiology, [facility], in [place], [place] [address] [place] [phone] Neisha Nolan APRN, C.N.P., M.S.N. 08/21/2023 9:00 AM CDT Office Visit Department of Cardiovascular Medicine in [place], [place] [address] [place] [phone] Ghada Perdomo APRN, C.N.P., M.S.N. [address] [place] [phone] 08/21/2023 11:45 AM CDT Ancillary Procedure Department of Cardiovascular Medicine in [place], [place] [address] [place] [phone] Rajat Pizarro M.Mehnaz.B.S. [address] [place] [phone] 08/21/2023 1:00 PM CDT Comprehensive Visit Department of Cardiovascular Medicine in [place], [place] [address] [place] [phone] Hamilton Babcock M.D. [address] [place] [phone] 10/21/2023 9:45 AM CDT Clinical Communication Virtual Review in [place], [place] 200 [place] [address] 10/23/2023 7:30 AM CDT Diagnostic Division of Pulmonary Medicine in [place], [place] [address] [place] [phone] Rajat Pizarro M.B.B.S. [address] [place] [phone] 10/23/2023 8:40 AM CDT Appointment Department of Laboratory Medicine and Pathology, [facility] in [place], [place] [address] [place] [phone] Rajat Pizarro M.B.B.S. [address] [place] [phone] 10/23/2023 9:15 AM CDT Appointment Department of Radiology, [facility] in [place], [place] [address] [place] [phone] Rajat Pizarro M.B.B.S. [address] [place] [phone] 10/23/2023 10:00 AM CDT Office Visit Division of Rheumatology in [place], [place] [address] [place] [phone] Rajat Pizarro M.B.B.S. [address] [place] [phone] documented as of this encounter Visit Diagnoses Not on filedocumented in this encounter
--- OUTSIDE RECORDS SUMMARY | 2023-08-14 01:21 | XMS_ITS | Clinical Summary ---
Author Organization [facility] Address [place], [place] [address] Care Team Providers Care Trash Collector Name Role Phone Timoteo Beavers MD Primary Care Provider [phone] Allergies Active Allergy Reactions Criticality Noted Date Comments Sulfa (Sulfonamide Antibiotics) Nausea And Vomiting 01/30/2021 Medications Medication Sig Dispensed Refills Start Date End Date Status mometasone-formot alejandra (Dulera) 200-5 mcg/actuation inhalerIndication s:Sarcoidosis USE 2 INHALATIONS TWICE A DAY 39 g 2 03/11/2023 Active metroNIDAZOLE 0.75 % creamIndications: Rosacea Apply topically to affected area on face once-twice daily. 45 g 2 06/05/2023 Active methotrexate sodium/PF (methotrexate, preservative free,) 25 mg/mL soln Inject As Directed once weekly. 0.4 ml (10mg) SC Q week x 14 days, 0.6 ml (15mg) SC Q week x 14 days, then 0.8 ml (20 mg) q week Active atovaquone (MEPRON) 750 mg/5 mL suspension [...] 800 units by mouth once daily. Active WalkerIndications :Mitral valve insufficiency, unspecified etiology Walker with front wheels for home use. 1 Each 07/08/2023 Active nortriptyline (PAMELOR) 10 mg capsuleIndication s:Anxiety Take 1 Capsule (10 mg) by mouth at bedtime if needed for Sleep (sleep/anxiety). 07/09/2023 Active predniSONE (DELTASONE) 20 mg tabletIndications :Sarcoidosis Take 2 tablets (40 mg) by mouth daily for 2 weeks, then decrease by one-half tablet (10 mg) every 2 weeks as directed. 60 Tablet 07/10/2023 Active QUEtiapine (SEROQUEL) 25 mg tabletIndications :Anxiety Take 1 Tablet (25 mg) by mouth at bedtime if needed for Agitation or Hallucinations (sleep). 07/09/2023 Active amiodarone (CORDARONE) 200 mg tabletIndications :Ventricular trigeminy Take 1 Tablet (200 mg) by mouth once daily. 90 Tablet 07/29/2023 Active metoprolol succinate (TOPROL XL) 50 mg sustained-release tabletIndications :Ventricular trigeminy Take 1 Tablet (50 mg) by mouth two times daily. 180 Tablet 07/29/2023 Active tamsulosin (FLOMAX) 0.4 mg capsuleIndication s:Nephrolithiasis Take 1 Capsule (0.4 mg) by mouth once daily after a meal. 14 Capsule 08/03/2023 Active potassium chloride (KLOR-CON M20) 20 mEq extended-release tablet (part/cryst)Indic ations:Hypokalemi a Take 1 Tablet (20 mEq) by mouth once daily. 100 Tablet 3 08/12/2023 Active omeprazole (PRILOSEC) 20 mg Delayed-Release capsule Take 20 mg by mouth once daily. While on prednisone 08/12/19 Discontinu ed(*Med complete/R egimen complete/L evel of care change) amiodarone (CORDARONE) 200 mg tabletIndications :Ventricular trigeminy Take 2 Tablets (400 mg) by mouth two times daily thorugh 07/11/23. THEN reduce on 07/12/23 to 2 tabs ONCE daily for 1 week. THEN reduce on 07/19/23 to 1 tab daily thereafter 180 Tablet 07/09/2023 07/29/19 Discontinu ed(Reorder (E-cancel not sent)) busPIRone (BUSPAR) 10 mg tabletIndications :Anxiety Take 2 Tablets (20 mg) by mouth or nasogastric tube three times daily. 60 Tablet 07/09/2023 08/12/19 24 Discontinu ed(*Med complete/R egimen complete/L evel of care change) metoprolol succinate (TOPROL XL) 50 mg sustained-release tabletIndications :Ventricular trigeminy Take 1 Tablet (50 mg) by mouth two times daily. 60 Tablet 1 07/09/2023 07/29/19 24 Discontinu ed(Reorder (E-cancel not sent)) potassium chloride (KLOR-CON M20) 20 mEq extended-release tablet (part/cryst)Indic ations:Hypokalemi a Take 1 Tablet (20 mEq) by mouth once daily. 30 Tablet 08/03/2023 08/12/19 24 Discontinu ed(Reorder (E-cancel not sent)) Active Problems Problem Noted [...] Encounters Date Type Department Care Team Description 08/12/2023 8:20 AM CDT Office Visit [address] [address] Timoteo Beavers MD Follow Up (kidney stones/); Lab (results of lab work); Medication Management; Dizziness (Patient is still having dizziness, about once a day, but not as bad as when on flomax) 08/12/2023 Travel 08/08/2023 Telephone [facility] [address] [place] [address] Timoteo Beavers MD FYI (FYI FOR UPCOMING APPT ) 08/06/2023 Telephone [facility] [address] [place] [address] Cristina Chu PA Questions 08/05/2023 Telephone [facility] [address] [facility] [address] [place] [phone] Addy Davies MD Device Check 08/05/2023 Telephone [facility] [address] [facility] [address] [place] [phone] Addy Davies MD Follow Up 08/03/2023 12:41 PM CDT - 08/03/2023 11:59 PM CDT Hospital Encounter [facility] [address] [place] [address] Angie Suggs, AZEB Hematuria, unspecified type 08/03/2023 11:10 AM CDT Office Visit [facility] [address] [place] [address] Angie Suggs, AZEB Blood In Urine 08/03/2023 Travel 08/03/2023 Nurse Triage [facility] [address] [place] [address] Timoteo Beavers MD Questions 08/01/2023 Telephone [facility] [address] [place] [address] Viktor Oconnor MD Cardiology Appointment 07/30/2023 10:30 AM CDT Telemedicine [facility] [address] [place] [address] Susannah Barrientos NP Sleep Consult (HST last summer); Telehealth (no vitals) 07/29/2023 Medical Messaging [facility] [address] [place] [address] Timoteo Beavers MD Sleep study 07/23/2023 Orders Only [facility] [address] [place] [address] Viktor Oconnor MD <No scans attached> 07/17/2023 2:20 PM CDT Office Visit [facility] [address] [place] [address] Timoteo Beavers MD Hospital F/U (chest pain/broken ribs, fatigued, tired ) 07/16/2023 11:00 AM CDT Procedure Only [facility] [address] [place] [address] Device Check (In-Clinic Medtronic ICD Eval... 07/16/2023 Travel 07/10/2023 Telephone [facility] [address] [place] [address] Addy Davies MD Imaging (24 hour monitor/) 07/10/2023 Patient Outreach [facility] [address] [place] [address] Deloris Draper, RN Primary RN Care Management; Hospital F/U (LACE 25) 07/09/2023 Orders Only [facility] [address] [place] [address] Obi Loyola MD <No scans attached> 07/08/2023 Travel 07/03/2023 Travel 06/30/2023 Travel 06/29/2023 9:12 PM CDT - 07/09/2023 4:02 PM CDT Hospital Encounter [facility] [address] [place] [address] Kristina Whittaker MBBS [facility], [facility] Hospitalist anthony Tucker, DO Polo Winters John Edward, MD [facility], MD Salazar Donaldson, Ashwin Yin MD Ventricular trigeminy (Primary Dx); Mitral valve insufficiency, unspecified etiology; Anxiety; Sarcoidosis; Cardiac arrest (HC); Hypokalemia Discharge Disposition: Home Health 06/29/2023 Orders Only [facility] Scanner 1 scan: (1-Ord) [facility], 06/29/2023 06/17/2023 1:55 PM CDT Office Visit [facility] [address] [facility] [place] [address] Timoteo Beavers MD Physical (referrals from [facility] discussion); Establish Care (/) 06/17/2023 Orders Only [facility] [address] [facility] [address] Timoteo Beavers MD Outside Order (Ordered by Rajat Pizarro) 06/17/2023 Travel 06/05/2023 8:30 AM CDT Office Visit [facility] [address] [place] [address] Charisse Cabrera MD Derm Problem (fbse) 06/05/2023 Travel from Last 3 Months Immunizations Name Administration Dates Next Due COVID-19 Vaccine Spikevax (M oderna 50mcg/0.5mL) 12YO+ [id number] Formula PF 06/17/2023,12/25/2022 Influenza, IIV4 12/25/2022,12/31/2021,04/21/2020 Pneumococcal [...] Sign Reading Time Taken Comments Blood Pressure 109/73 08/12/2023 8:21 AM CDT Pulse 58 08/12/2023 8:21 AM CDT Temperature 36.5 ??C (97.7 ??F) 08/12/2023 8:21 AM CD T Respiratory Rate 20 08/03/2023 11:29 AM CDT Oxygen Saturation 96% 08/12/2023 8:21 AM CDT Inhaled Oxygen Concentration - - Weight 103 kg (227 lb) 08/12/2023 8:21 AM CDT Height 172 cm (5' 7.72) 06/29/2023 11:00 PM CDT Body Mass Index 34.8 06/29/2023 11:00 PM CDT Plan of Treatment Upcoming Encounters Date Type Department Care Team (Late st Contact Info) Description 08/23/2023 Procedure Only [facility] [address] [facility] [address] [place] [address] 08/27/2023 10:20 AM CDT Telemedicine [facility] [address] [place] [address] Susannah Barrientos NP [address] [place] [address] 12/09/2023 1:00 PM CDT Office Visit [facility] [address] [place] [address] Jeff Morales MD [address] [place] [address] 06/16/2024 8:30 AM CDT Office Visit [facility] [address] [place] [address] Charisse Cabrera MD [address] [address] Health Maintenance Due Date Last Done Comments HIV for age 15-65 1978 Mammogram for age 45-75 06/19/2023 06/19/19 23, 08/10/2020 (Completed outside of [facility]) COVID-19 vaccine series (2022- season) 2023 06/17/2023, 12/25/2022, 12/31/2021, Additional history exists Zoster (shingles) series for age 50+ (2 of 2) 08/12/2023 06/17/2023 Influenza for age 50-64 10/27/2023 12/26/19 23, 12/31/2021, 04/21/2020 BMI (ht and wt on same day) for age 18+ 06/16/2024 06/17/2023, 12/10/2022, 09/21/2022, Additional history exists Depression screening for age 12+ 06/16/2024 06/17/19 24, 06/17/2023 Colonoscopy through age 75 10/26/202410/26 (Completed outside of [facility]) Pap test for age 21-65 05/22/2026 05/22/2021, [...] result of the Century Cures Act, medical imagingexams and procedure reports [...] 08/03/2023 1:35:02 PM (Electronically Signed) Angie Suggs NP CT * (ABNORMAL) CBC WITH AUTO DIFFERENTIAL (08/03/2023 12:02 PM CDT) Only the most recent of2 resultswithin the time period is included. WHITE BLOOD COUNT 8.2 4.5 - 11.0 thou/cu mm 08/03/2023 12:32 PM [facility] RED BLOOD COUNT 4.19 4.00 - 5.20 mil/cu mm 08/03/2023 12:32 PM [facility] HEMOGLOBIN 12.1 12.0 - 16.0 g/dL 08/03/2023 12:32 PM [facility] HEMATOCRIT 38.6 33.0 - 51.0 % 08/03/2023 12:32 PM [facility] MCV 92 80 - 100 fL 08/03/2023 12:32 PM [facility] MCH 28.9 26.0 - 34.0 pg 08/03/2023 12:32 PM [facility] MCHC 31.3(L) 32.0 - 36.0 g/dL 08/03/2023 12:32 PM [facility] RDW 21.2(H) 11.5 - 15.5 % 08/03/2023 12:32 PM [facility] PLATELET COUNT 145 140 - 440 thou/cu mm 08/03/2023 12:32 PM [facility] MPV 8.9 6.5 - 11.0 fL 08/03/2023 12:32 PM CDT [facility] Blood BLOOD SPECIMEN / Unknown Venipuncture / Unknown 08/03/2023 12:02 PM CDT 08/03/2023 12:02 PM CDT Angie Suggs NP HEMATOLOGY Performing Organization Address City/[facility] Co de Phone Number [facility] [address] [place] [address] * (ABNORMAL) RED CELL MORPHOLOGY (08/03/2023 12:02 PM CDT) Only the most recent of2 resultswithin the time period is included. Pathologist [facility] POLYCHROMASIA Slight 08/03/2023 12:32 PM CDT [facility] RBC COMMENT Present(A) RBC morphology appears normal, RBC morphology within normal limits for newborns. 08/03/2023 12:32 PM CDT [facility] Blood BLOOD SPECIMEN / Unknown Venipuncture / Unknown 08/03/2023 12:02 PM CDT 08/03/2023 12:02 PM CDT Narrative Authorizing Provider Result Jhonny Suggs NP HEMATOLOGY Performing Organization Address [facility] Co de Phone Number [facility] [address] [place] [address] * PLATELET ESTIMATE (08/03/2023 12:02 PM CDT) Only the most recent of2 resultswithin the time period is included. [facility] PLATELET ESTIMATE Adequate Adequate, No estimate 08/03/2023 12:32 PM CDT [facility] Blood BLOOD SPECIMEN / Unknown Venipuncture / Unknown 08/03/2023 12:02 PM CDT 08/03/2023 12:02 PM CDT Narrative Authorizing Provider Result Jhonny Suggs NP HEMATOLOGY Performing Organization Address City/[facility] Co de Phone Number [facility] [address] [place] [address] * MANUAL DIFFERENTIAL (08/03/2023 12:02 PM CDT) Only the most recent of2 resultswithin the time period is included. % NEUTROPHILS 76.0 % 08/03/2023 12:32 PM T [facility] % LYMPHOCYTES 13.0 % 08/03/2023 12:32 PM T [facility] % MONOCYTES 9.0 % 08/03/2023 12:32 PM T [facility] % EOSINOPHILS 1.0 % 08/03/2023 12:32 PM T [facility] % BASOPHILS 1.0 % 08/03/2023 12:32 PM T [facility] NEUTROPHILS ABSOLUTE 6.2 1.7 - 7.0 thou/cu mm 08/03/2023 12:32 PM CDT [facility] LYMPHOCYTES ABSOLUTE 1.1 0.9 - 2.9 thou/cu mm 08/03/2023 12:32 PM CDT [facility] MONOCYTES ABSOLUTE 0.7 <0.9 thou/cu mm 08/03/2023 12:32 PM T [facility] EOSINOPHILS ABSOLUTE 0.1 <0.5 thou/cu mm 08/03/2023 12:32 PM T [facility] BASOPHILS ABSOLUTE 0.1 <0.3 thou/cu mm 08/03/2023 12:32 PM T [facility] Blood BLOOD SPECIMEN / Unknown Venipuncture / Unknown 08/03/2023 12:02 PM CDT 08/03/2023 12:02 PM CDT Angie Suggs NP HEMATOLOGY [facility] [address] [place] [address] * (ABNORMAL) COMP METABOLIC PANEL (08/03/2023 12:02 PM CDT) Only the most recent of2 resultswithin the time period is included. SODIUM 142 136 - 145 mmol/L 08/03/2023 12:28 PM T [facility] POTASSIUM 3.0(L) 3.5 - 5.1 mmol/L 08/03/2023 12:28 PM [facility] CHLORIDE 103 98 - 107 mmol/L 08/03/2023 12:28 PM [facility] CO2,TOTAL 29 22 - 29 mmol/L 08/03/2023 12:28 PM [facility] ANION GAP 10 5 - 18 08/03/2023 12:28 PM [facility] GLUCOSE 96 70 - 99 mg/dL 08/03/2023 12:28 PM [facility] CALCIUM 9.6 8.8 - 10.2 mg/dL 08/03/2023 12:28 PM [facility] BUN 14 8 - 23 mg/dL 08/03/2023 12:28 PM [facility] CREATININE 0.99(H) 0.50 - 0.90 mg/dL 08/03/2023 12:28 PM [facility] BUN/CREAT RATIO 14 10 - 20 12:28 PM [facility] eGFR 65(L) >90 mL/min/1.7 3m2 08/03/2023 12:28 PM [facility] Comment:As of 2021, eG FR is calculated by the CKD-EPI creatinine equation without race adjustment. ??eGFR can be influenced by muscle mass, exercise, and diet. ??The reported eGFR is an estimation only and is only applicable if the renal function is stable. ALBUMIN 3.9(L) 4.0 - 4.9 g/dL 08/03/2023 12:28 PM [facility] PROTEIN,TOTAL 5.8(L) 6.0 - 8.0 g/dL 08/03/2023 12:28 PM [facility] BILIRUBIN,TOTAL 0.9 0.0 - 1.2 mg/dL 08/03/2023 12:28 PM [facility] ALK PHOSPHATASE 85 35 - 104 IU/L 08/03/2023 12:28 PM [facility] ALT (SGPT) 10 10 - 35 IU/L 08/03/2023 12:28 PM CDT [facility] AST (SGOT) 17 10 - 35 IU/L 08/03/2023 12:28 PM CDT [facility] Blood BLOOD SPECIMEN / Unknown Venipuncture / Unknown 08/03/2023 12:02 PM CDT 08/03/2023 12:02 PM CDT Angie Suggs ROOFING TILE SORTER CHEMISTRY [facility] [address] [place] [address] * (ABNORMAL) URINALYSIS MICROSCOPIC (08/03/2023 11:22 AM CDT) Only the most recent of2 resultswithin the time period is included. RBC >100(A) 0-2, None Seen /HPF 08/03/2023 11:47 AM CDT [facility] WBC 3-5 0-2, 3-5, None Seen /HPF 08/03/2023 11:47 AM CDT [facility] BACTERIA Few None Seen, Rare, Few Bacteria/H PF 08/03/2023 11:47 AM T [facility] EPITHELIAL CELLS Few None Seen, Few Epi/HPF 08/03/2023 11:47 AM CDT [facility] Mucus Present 08/03/2023 11:47 AM CDT [facility] Urine URINE SPECIMEN / Unknown Non-Blood / Unknown 08/03/2023 11:22 AM CDT 08/03/2023 11:28 AM CDT Camelia Keen ROOFING TILE SORTER URINE [facility] [address] [place], [place] [id number] * URINE CULTURE (08/03/2023 11:22 AM CDT) CULTURE <10,000 CFU/mL multiple organisms 08/05/2023 8:34 AM CDT [facility] Urine URINE SPECIMEN / Unknown Non-Blood / Unknown 08/03/2023 11:22 AM CDT 08/03/2023 11:28 AM CDT Angie Suggs NP MICROBIOLOGY [facility] [address] [place] [address], [place] * (ABNORMAL) UA W/ SEDIMENT EXAM REFLEXED PER CRITERIA (UA w/ reflex micro if positive) [50449.2] (08/03/2023 11:22 AM CDT) Only the most recent of2 resultswithin the time period is included. COLOR Yellow Yellow Color 08/03/2023 11:47 AM [facility] CLARITY Slightly Cloudy(A) Clear Clarity 08/03/2023 11:47 AM [facility] SPECIFIC GRAVITY,URINE 1.020 1.010, 1.015, 1.020, 1.025 08/03/2023 11:47 AM [facility] PH,URINE 6.5 6.0, 7.0, 8.0, 5.5, 6.5, 7.5, 8.5 08/03/2023 11:47 AM [facility] UROBILINOGEN, QUALITATIVE Normal Normal EU/dl 08/03/2023 11:47 AM [facility] PROTEIN, URINE Trace(A) Negative mg/dL 08/03/2023 11:47 AM [facility] GLUCOSE, URINE Negative Negative mg/dL 08/03/2023 11:47 AM [facility] KETONES,URINE Negative Negative mg/dL 08/03/2023 11:47 AM [facility] BILIRUBIN,URI NE Negative Negative 08/03/2023 11:47 AM [facility] OCCULT BLOOD,URINE Large(A) Negative 08/03/2023 11:47 AM [facility] NITRITE Negative Negative 08/03/2023 11:47 AM [facility] LEUKOCYTE ESTERASE Negative Negative 08/03/2023 11:47 AM [facility] Urine URINE SPECIMEN / Unknown Non-Blood / Unknown 08/03/2023 11:22 AM CDT 08/03/2023 11:28 AM CDT aCmelia Balderas Osmani BOWIE URINE [facility] [address] [place] [address] * (ABNORMAL) BASIC METABOLIC PANEL (07/17/2023 4:11 PM CDT) Only the most recent of5 resultswithin the time period is included. SODIUM 146(H) 136 - 145 mmol/L 07/18/2023 1:02 AM [facility] POTASSIUM 3.8 3.5 - 5.1 mmol/L 07/18/2023 1:02 AM [facility] CHLORIDE 107 98 - 107 mmol/L 07/18/2023 1:02 AM [facility] CO2,TOTAL 31(H) 22 - 29 mmol/L 07/18/2023 1:02 AM [facility] ANION GAP 8 5 - 18 07/18/2023 1:02 AM [facility] GLUCOSE 92 70 - 99 mg/dL 07/18/2023 1:02 AM [facility] CALCIUM 9.3 8.8 - 10.2 mg/dL 07/18/2023 1:02 AM [facility] BUN 14 8 - 23 mg/dL 07/18/2023 1:02 AM [facility] CREATININE 0.94(H) 0.50 - 0.90 mg/dL 07/18/2023 1:02 AM [facility] BUN/CREAT RATIO 15 10 - 20 1:02 AM [facility] eGFR 70(L) >90 mL/min/1.7 3m2 07/18/2023 1:02 AM [facility] Comment:As of 2021, eG FR is calculated by the CKD-EPI creatinine equation without race adjustment. ??eGFR can be influenced by muscle mass, exercise, and diet. ??The reported eGFR is an estimation only and is only applicable if the renal function is stable. Blood BLOOD SPECIMEN / Unknown Venipuncture / Unknown 07/17/2023 4:11 PM CDT 07/17/2023 4:13 PM CDT Timoteo Beavers MD CHEMISTRY [facility] [address] [place] [address], * EKG 12 LEAD (07/09/2023 8:21 AM [...] NOW QTc 434 ms BEYOND NOW P Roann 47 degrees BEYOND NOW R Roann -36 degrees BEYOND NOW T Roann 129 degrees BEYOND NOW 07/09/2023 8:21 AM CDT 07/09/2023 5:15 PM CDT Tere Carballo ROOFING TILE SORTER EKG ORD Performing Organization Address City/[facility] Co de Phone Number [place] NOW [place], [place] * POTASSIUM (07/09/2023 5:05 AM CDT) Only the most recent of12 resultswithin the time period is included. POTASSIUM 3.7 3.5 - 5.1 mmol/L 07/09/2023 5:35 AM CDT [facility] Blood BLOOD SPECIMEN / Unknown Venipuncture / Unknown 07/09/2023 5:05 AM CDT 07/09/2023 5:19 AM CDT Addy Davies MD CHEMISTRY Performing Organization Address [facility]/ZIP Co de Phone Number [facility] [address] [address] [phone] [place] [address] * SCAN-CARDIAC STRIP (07/08/2023 8:02 PM CDT) [...] - 2.4 mg/dL 07/07/2023 6:07 AM CDT [facility] Blood BLOOD SPECIMEN / Unknown Venipuncture / Unknown 07/07/2023 5:36 AM CDT 07/07/2023 5:40 AM CDT Ashwin Lincoln MD CHEMISTRY [facility] [place] [phone] [place] [address] * SCAN-CARDIAC STRIP (07/06/2023 7:28 PM CDT) Scanner OTHER * SCAN-CARDIAC STRIP (07/06/2023 3:44 PM CDT) Scanner OTHER * ALT (SGPT) (07/06/2023 5:06 AM CDT) ALT (SGPT) 34 10 - 35 IU/L 07/06/2023 6:17 AM CDT [facility] Blood BLOOD SPECIMEN / Unknown Venipuncture / Unknown 07/06/2023 5:06 AM CDT 07/06/2023 5:51 AM CDT Tere Carballo ROOFING TILE SORTER CHEMISTRY Performing Organization Address City/[facility]/ZIP Co de Phone Number [facility] [place] [address] [phone] [place] [address] * AST (SGOT) (07/06/2023 5:06 AM CDT) AST (SGOT) 25 10 - 35 IU/L 07/06/2023 6:17 AM CDT [facility] Blood BLOOD SPECIMEN / Unknown Venipuncture / Unknown 07/06/2023 5:06 AM CDT 07/06/2023 5:51 AM CDT Tere Carballo NP CHEMISTRY [facility] [place] [address] [phone] [place] [address] * SCAN-CARDIAC STRIP (07/06/2023 1:28 AM CDT) [...] VIDEO SWALLOW AND TREATMENT W SPEECH LOCATION: [facility] MEDICAL IMAGING DATE: 07/05/2023 INDICATION: Difficulty swallowing. [...] VIDEO SWALLOW AND TREATMENT W SPEECH LOCATION: [facility] MEDICAL IMAGING DATE: 07/05/2023 INDICATION: Difficulty swallowing. [...] CHEST 2 VIEWS PA AND LATERAL LOCATION: [facility] MEDICAL IMAGING DATE: 07/05/2023 INDICATION: Post pacemaker/post [...] CHEST 2 VIEWS PA AND LATERAL LOCATION: [facility] MEDICAL IMAGING DATE: 07/05/2023 INDICATION: Post pacemaker/post [...] Addy Davies MD ? 07/04/2023 ??5:56 PM [facility] Electrophysiology Laboratory Procedures: Dual-chamber ICD implantation Diagnoses: [...] and does not meet strict criteria for QC MANAGER. The procedure, indications, risks, benefits, and alternatives [...] the stylet back, looked less septal in [place] and this position was not accepted. After a short period of difficulty, the C315 His sheath was placed into the RV and VILLA and [place] ventriculograms were performed which was very useful [...] excellent paced QRS morphology. Of note, during -CHARTERED WEALTH MANAGER and AP-CHARTERED WEALTH MANAGER, the terminal R wave was no longer [...] all radiologic interpretation. Addy Davies M.D. Cardiac [employer] Player [facility] Karri Melendez ROOFING TILE SORTER HISTORY TEACHER ORD * SCAN-CARDIAC STRIP (07/04/2023 4:16 PM CDT) Scanner OTHER * EP ICD (07/04/2023 12:38 PM CDT) Anatomical Region Laterality Modality X-Ray Angiograph y 07/04/2023 12:3 8 PM CDT Karri Hollyraeannmattpatience [facility] * SCAN-CARDIAC STRIP (07/04/2023 7:12 AM CDT) Scanner OTHER * (ABNORMAL) CBC with Platelets no Differential (07/04/2023 5:44 AM CDT) Only the most recent of5 resultswithin the time period is included. WHITE BLOOD COUNT 9.4 4.5 - 11.0 thou/cu mm 07/04/2023 6:18 AM [facility] RED BLOOD COUNT 4.14 4.00 - 5.20 mil/cu mm 07/04/2023 6:18 AM [facility] HEMOGLOBIN 10.8(L) 12.0 - 16.0 g/dL 07/04/2023 6:18 AM [facility] HEMATOCRIT 34.3 33.0 - 51.0 % 07/04/2023 6:18 AM [facility] MCV 83 80 - 100 fL 07/04/2023 6:18 AM [facility] MCH 26.1 26.0 - 34.0 pg 07/04/2023 6:18 AM [facility] MCHC 31.5(L) 32.0 - 36.0 g/dL 07/04/2023 6:18 AM [facility] RDW 15.2 11.5 - 15.5 % 07/04/2023 6:18 AM [facility] PLATELET COUNT 189 140 - 440 thou/cu mm 07/04/2023 6:18 AM [facility] MPV 9.8 6.5 - 11.0 fL 07/04/2023 6:18 AM [facility] NRBC 0.0 % 07/04/2023 6:18 AM [facility] ABS NRBC 0.0 thou /cu mm 07/04/2023 6:18 AM [facility] Blood BLOOD SPECIMEN / Unknown Venipuncture / Unknown 07/04/2023 5:44 AM CDT 07/04/2023 6:13 AM CDT Karri Melendez NP HEMATOLOGY [facility] SENDOUT [place]IP [address] [address] [place] [address] * SCAN-PACER (07/04/2023 12:00 AM CDT) Narrative [...] BRAIN WO, CT SPINE CERVICAL WO LOCATION: [facility] MEDICAL IMAGING DATE: 07/03/2023 INDICATION: Head trauma, [...] BRAIN WO, CT SPINE CERVICAL WO LOCATION: [facility] MEDICAL IMAGING DATE: 07/03/2023 INDICATION: Head trauma, [...] neural foraminal narrowingthroughout cervical spine. Iker Maldonado ROOFING TILE SORTER CT * CT HEAD BRAIN WO (07/03/2023 [...] BRAIN WO, CT SPINE CERVICAL WO LOCATION: [facility] MEDICAL IMAGING DATE: 07/03/2023 INDICATION: Head trauma, [...] BRAIN WO, CT SPINE CERVICAL WO LOCATION: [facility] MEDICAL IMAGING DATE: 07/03/2023 INDICATION: Head trauma, [...] neural foraminal narrowingthroughout cervical spine. Iker Maldonado ROOFING TILE SORTER CT * SCAN-CARDIAC STRIP (07/03/2023 7:14 PM [...] EXAM: XR CHEST 1 VIEW PORTABLE LOCATION: [facility] MEDICAL IMAGING DATE: 07/03/2023 INDICATION: Eval Lung Infiltrate COMPARISON: 07/02/2023 Procedure Note Octavio White MD - 07/03/2023 For Patients: As a result of the Cures Act, medical imagingexams and procedure reports are released immediately into your electronicmedical record. You may view this report before your referring provider.If you have questions, please contact your health care provider. EXAM: XR CHEST 1 VIEW PORTABLE LOCATION: [facility] MEDICAL IMAGING DATE: 07/03/2023 INDICATION: Eval Lung [...] - 100 mg/dL 07/03/2023 7:43 AM CDT [facility] Blood BLOOD SPECIMEN / Unknown 07/03/2023 7:42 AM CDT 07/03/2023 7:43 AM CDT Darryl Piper MD CHEMISTRY [facility] SENDOUT INTERNAL [facility] [address] [address] [place] [address] * SCAN-CARDIAC STRIP (07/03/2023 1:00 AM CDT) Scanner OTHER * SCAN-CARDIAC STRIP (07/03/2023 12:00 AM CDT) Scanner OTHER * SCAN-CARDIAC STRIP (07/03/2023 12:00 AM CDT) Scanner OTHER * SCAN-CARDIAC STRIP (07/02/2023 4:07 PM CDT) Scanner OTHER * MRSA/SA PCR (07/02/2023 10:07 AM CDT) MRSA DNA PCR Negative Negative 07/02/2023 11:24 AM CDT [facility] STAPHYLOCOCCUS AUREUS PCR Negative Negative 07/02/2023 11:24 AM CDT [facility] Other SPECIMEN FROM INTERNAL NOSE / Unknown Non-Blood / Unknown 07/02/2023 10:07 AM CDT 07/02/2023 10:13 AM CDT Narrative [facility] - 07/02/2023 11:24 AM CDT Test result does not preclude MRSA or SA nasal colonization. Mono Velasco DO MICROBIOLOGY Performing Organization Address City/[facility]/ZIP Co de Phone Number [facility] SENDOUT INTERNAL ZIP [phone] [place] [address] * SPUTUM CULTURE, STAIN (07/02/2023 9:37 AM CDT) CULTURE Usual aida 07/04/2023 8:27 AM CDT [facility] GRAM STAIN 4+ PMNs 07/04/2023 8:27 AM CDT [facility] GRAM STAIN 4+ Gram Positive Bacilli 07/04/2023 8:27 AM CDT [facility] GRAM STAIN 2+ Gram Positive Cocci 07/04/2023 8:27 AM CDT [facility] GRAM STAIN No RBCs 07/04/2023 8:27 AM CDT [facility] GRAM STAIN No Epithelial cells 07/04/2023 8:27 AM CDT [facility] GRAM STAIN Gram stain performed by [place], [place] 07/04/2023 8:27 AM CDT [facility] Sputum SPECIMEN FROM ENDOTRACHEAL TUBE / Unknown Non-Blood / Unknown 07/02/2023 9:37 AM CDT 07/02/2023 9:37 AM CDT Mono Velasco DO MICROBIOLOGY Performing Organization Address City/[facility]/ZIP Co de Phone Number [facility] [address] [place] [phone], [facility] SENDOUT INTERNAL ZIP [phone] [place] [address] * SCAN-CARDIAC STRIP (07/02/2023 7:15 AM CDT) Scanner OTHER * (ABNORMAL) TRIGLYCERIDES propofol (07/02/2023 5:04 AM CDT) Only the most recent of2 resultswithin the time period is included. TRIGLYCERIDES 383(H) <150 mg/dL 07/02/2023 5:35 AM CDT [facility] PROVIDER ORDERED STATUS RANDOM 07/02/2023 5:35 AM CDT [facility] Blood BLOOD SPECIMEN / Unknown Non-Lab Venipuncture / Unknown 07/02/2023 5:04 AM CDT 07/02/2023 5:11 AM CDT [facility] SENDOUT INTERNAL ZIP [address] [place] [address] * CK TOTAL propofol (07/02/2023 5:04 AM CDT) Only the most recent of2 resultswithin the time period is included. CK,TOTAL 45 26 - 192 IU/L 07/02/2023 5:35 AM CDT [facility] Blood BLOOD SPECIMEN / Unknown Non-Lab Venipuncture / Unknown 07/02/2023 5:04 AM CDT 07/02/2023 5:11 AM CDT [facility] Performing Organization Address City/[facility]/ZIP Co de Phone Number [facility] SENDOUT INTERNAL ZIP [address] [place] [address] * BLOOD CULTURE (07/01/2023 10:32 PM CDT) Only the most recent of2 resultswithin the time period is included. CULTURE No Growth. 07/07/2023 11:05 AM CDT [facility] Blood BLOOD SPECIMEN / Unknown Butterfly / Unknown 07/01/2023 10:32 PM CDT 07/01/2023 10:35 PM CDT Karri Melendez NP [facility]BIOLOGY [facility] [address] [place] [address], * SCAN-CARDIAC STRIP (07/01/2023 8:11 PM CDT) Scanner OTHER * SCAN-CARDIAC STRIP (07/01/2023 2:37 PM CDT) Scanner OTHER * SCAN-CARDIAC STRIP (07/01/2023 7:42 AM CDT) Scanner OTHER * (ABNORMAL) PROCALCITONIN (07/01/2023 6:58 AM CDT) PROCALCITONIN 1.66(H) ng/ml 07/01/2023 7:34 AM CDT [facility] Blood BLOOD SPECIMEN / Unknown Non-Lab Venipuncture / Unknown 07/01/2023 6:58 AM CDT 07/01/2023 7:01 AM CDT Narrative [facility] - 07/01/2023 7:34 AM CDT [...] < 2 ng/mL are obtained. Tuyet Farias ROOFING TILE SORTER SEND OUTS [facility] SENDOUT [place]IP [address] [address] [place] [address] * (ABNORMAL) HEPATIC FUNCTION PANEL (07/01/2023 4:43 AM CDT) Only the most recent of2 resultswithin the time period is included. ALBUMIN 3.4(L) 4.0 - 4.9 g/dL 07/01/2023 9:08 AM [facility] PROTEIN,TOTAL 5.3(L) 6.0 - 8.0 g/dL 07/01/2023 9:08 AM T [facility] BILIRUBIN,TOTAL 0.4 0.0 - 1.2 mg/dL 07/01/2023 9:08 AM [facility] BILIRUBIN,DIRECT <0.2 0.0 - 0.3 mg/dL 07/01/2023 9:08 AM [facility] BILIRUBIN,INDIRE CT 07/01/2023 9:08 AM [facility] Comment:Unable to calculate, Direct Bili <0.2 ALK PHOSPHATASE 68 35 - 104 IU/L 07/01/2023 9:08 AM T [facility] ALT (SGPT) 104(H) 10 - 35 IU/L 07/01/2023 9:08 AM [facility] AST (SGOT) 45(H) 10 - 35 IU/L 07/01/2023 9:08 AM [facility] Blood BLOOD SPECIMEN / Unknown Non-Lab Venipuncture / Unknown 07/01/2023 4:43 AM CDT 07/01/2023 4:51 AM CDT Mono Velasco DO CHEMISTRY [facility] SENDOUT [place]NAL ZIP [address] [address] [place] [address] * SCAN-CARDIAC STRIP (06/30/2023 8:12 PM CDT) Scanner OTHER * NEURON SPECIFIC ENOLASE BLOOD (06/30/2023 1:40 PM CDT) Neuron-Specifi c Enolase, Serum 12.8 0.0 - 17.6 ng/mL 07/04/2023 2:09 PM CDT [facility] (CET) Comment: Neuron-specific Enolase performed by [employer] methodology. Values obtained with different assay methods or kits cannot be used interchangeably. Blood BLOOD SPECIMEN / Unknown Arterial / Unknown 06/30/2023 1:40 PM CDT 06/30/2023 1:44 PM CDT Narrative [facility] ([facility]) - 07/04/2023 2:09 PM CDT Test(s) [id number] Enolase, Serum This test was developed and its performance characteristics determined by [facility]. It has not been cleared or approved by the Food and Drug Administration. Performed at: ??[address] - [address] ??[id number] Occupational Health Specialist: Kevin Benson MD, Phone: ??[phone] Suma Velez MD SEND OUTS [facility] (CET) [address] [place] [address] * AMMONIA (06/30/2023 1:40 PM CDT) Pathologist [facility] AMMONIA 27 16 - 60 umol/L 06/30/2023 2:10 PM CDT [facility] Blood BLOOD SPECIMEN / Unknown Arterial / Unknown 06/30/2023 1:40 PM CDT 06/30/2023 1:44 PM CDT Narrative [facility] - 06/30/2023 2:10 PM CDT 1. ??Sulfasalazine and its metabolite Sulfapyridine at therapeutic concentrations may lead to falsely low results. 2. ??Temozolomide and its metabolite MTIC may lead to falsely elevated results, and its metabolite AIC may lead to falsely low results. Suma Velez MD CHEMISTRY [facility] SENDOUT INTERNAL ZIP [phone] [place] [address] * ECHO TTE COMPLETE W CONTRAST (06/30/2023 9:12 AM CDT) EJECTION FRACTION 50% PROSOLV Anatomical Region Laterality Modality Ultrasound 06/30/2023 8:27 AM CDT Narrative 06/30/2023 11:35 [place] [address] Main: [email or web address] ? Transthoracic Echo Report NANCI CORONEL Nohelia ID: [id number] Age: 58 : 1965 Ordering Provider: LONNY MAHAN Exam Date: 06/30/2023 08:27 Gender: F Optical Mechanic: HGR Height: 67 in BSA: 2.15 m?? Weight: 231 lbs BMI: 36.2 kg/m?? HR: 81 Location: Inpatient (Portable) Rhythm: Artificially Paced Procedure Components: 2D imaging with contrast, Color Doppler, Spectral Doppler Indications: Cardiac Arrest Technical Quality: Fair Contrast: Definity Constrast Dose (ml): 0.[address] [facility]#: [id number] Final Conclusion 1. Normal left ventricular chamber [...] Aortic Root ZScore: 2.60 Enriqueta Sanchez MD [facility] Accredited Site (Electronically Signed) Final Date: 30 Jun 2023 11:34 ICD-10 Codes: 427.5 Procedure Note Enriqueta Sanchez MD - 06/30/[address] [address] Main: [email or web address] Transthoracic Echo Report NANCI CORONEL ID: [id number] Age: 58 : 1965 Ordering Provider:LONNY MAHAN Exam Date: 06/30/2023 08:27 Gender: F Optical Mechanic: IRMA Height: 67 in BSA: 2.15 m?? Weight: 231 lbs BMI: 36.2 kg/m?? HR: 81 Location: Inpatient (Portable) Rhythm: Artificially Paced Procedure Components: 2D imaging with contrast, Color Doppler, SpectralDoppler Indications: Cardiac Arrest Technical Quality: Fair Contrast: Definity Constrast Dose (ml): 0.[address] [facility]#: [id number] Final Conclusion 1. Normal left ventricular chamber [...] Aortic Root ZScore: 2.60 Enriqueta Sanchez MD [facility] Accredited Site (Electronically Signed) Final Date: 30 Jun 2023 11:34 ICD-10 Codes: 427.5 Lonny Mahan MD ECHO ORD * SCAN-CARDIAC STRIP (06/30/2023 8:00 AM CDT) Scanner OTHER * CWS PATH REVIEW HEMATOLOGY (06/30/2023 4:06 AM CDT) PATH COMMENT comment 07/04/2023 10:25 AM CDT [facility] Comment: Reviewed by Dariana Medel MT, MS ([facility]) on 07/03/2023 This is an appended report. ??These results have been appended to a previously final verified report. Blood BLOOD SPECIMEN / Unknown Non-Lab Venipuncture / Unknown 06/30/2023 4:06 AM CDT 06/30/2023 4:18 AM CDT Raffi Tucker DO LABORATORY [facility] SENDOUT INTERNAL ZIP [address] [address] [place] [address] * SCAN-CARDIAC STRIP (06/30/2023 3:08 AM CDT) Scanner OTHER * SCAN-CARDIAC STRIP (06/30/2023 12:28 AM CDT) Scanner OTHER * (ABNORMAL) ARTERIAL BLOOD GAS (06/30/2023 12:09 AM CDT) PH, ARTERIAL 7.31(L) 7.35 - 7.45 06/30/2023 12:17 AM CDT [facility] PCO2, ARTERIAL 43 32 - 45 mmHg 06/30/2023 12:17 AM CDT [facility] PO2, ARTERIAL 105 83 - 108 mmHg 06/30/2023 12:17 AM CDT [facility] HCO3, ARTERIAL 22 21 - 28 mmol/L 06/30/2023 12:17 AM CDT [facility] BASE EXCESS, ARTERIAL -4.5(L) -2.0 - 3.0 06/30/2023 12:17 AM CDT [facility] O2 SATURATION, ARTERIAL 99(H) 94 - 98 % 06/30/2023 12:17 AM CDT [facility] INSPIRED O2 06/30/2023 12:17 AM CDT [facility] Comment:Unit of Measure: Lit ers (L) if <=20; Percent (%) if >20 PATIENT TEMPERATURE 37.0 Degrees C 06/30/2023 12:17 AM CDT [facility] Blood ARTERIAL BLOOD SPECIMEN / Unknown Non-Lab Venipuncture / Unknown 06/30/2023 12:09 AM CDT 06/30/2023 12:14 AM CDT Anh Kendrick DO CHEMISTRY [facility] SENDOUT [place]NAL ZIP [address] [address] [place] [address] * XR ABDOMEN 1 VIEW PORTABLE (06/29/2023 [...] EXAM: XR ABDOMEN 1 VIEW PORTABLE LOCATION: [facility] MEDICAL IMAGING DATE: 06/29/2023 INDICATION: Tube placement COMPARISON: CT 09/21/2022 Procedure Note Humphrey Borrego MD - 06/29/2023 For Patients: As a result of the Cures Act, medical imagingexams and procedure reports are released immediately into your electronicmedical record. You may view this report before your referring provider.If you have questions, please contact your health care provider. EXAM: XR ABDOMEN 1 VIEW PORTABLE LOCATION: [facility] MEDICAL IMAGING DATE: 06/29/2023 INDICATION: Tube placement [...] 7.30(L) 7.35 - 7.45 07/01/2023 7:03 AM [facility] PCO2, ARTERIAL 41 32 - 45 mmHg 07/01/2023 7:03 AM [facility] PO2, ARTERIAL 67(L) 83 - 108 mmHg 07/01/2023 7:03 AM [facility] HCO3, ARTERIAL 21 21 - 28 mmol/L 07/01/2023 7:03 AM [facility] BASE EXCESS, ARTERIAL -6.0(L) -2.0 - 3.0 07/01/2023 7:03 AM [facility] O2 SATURATION, ARTERIAL 91(L) 94 - 98 % 07/01/2023 7:03 AM [facility] SODIUM, POCT 07/01/2023 7:03 AM [facility] Comment:Unable to determine. POTASSIUM, POCT 7:03 AM [facility] Comment:Unable to determine. INSPIRED O2,ISTAT 07/01/2023 7:03 AM CDT [facility] Comment:Not given PATIENT TEMPERATURE 37.0 Degrees C 07/01/2023 7:03 AM CDT [facility] WENDY'S TEST Normal 07/01/2023 7:03 AM CDT [facility] SAMPLE TYPE,ISTAT BLOOD GAS ARTERIAL 07/01/2023 7:03 AM CDT [facility] Blood BLOOD SPECIMEN / Unknown 06/29/2023 9:46 PM CDT 07/01/2023 7:03 AM CDT Anh Kendrick DO CHEMISTRY [facility] SENDOUT INTERNAL ZIP [id number] [place] [address] * (ABNORMAL) ACTIVATED CLOTTING TIME [id number] ACT (06/29/2023 9:21 PM CDT) [facility] Signature ACTIVATED CLOTTING TIME, POCT 139(H) 74 - 125 sec 07/01/2023 7:03 AM CDT [facility] Blood BLOOD SPECIMEN / Unknown 06/29/2023 9:21 PM CDT 07/01/2023 7:03 AM CDT Kristina SHIRLEY HEMATOLOGY Performing Organization Address City/[facility]/ZIP Co de Phone Number [facility] SENDOUT INTERNAL ZIP [address] [place] [address] * CVL CORONARY ANGIOGRAM POSS PCI (06/29/2023 9:12 PM CDT) Anatomical Region Laterality Modality X-Ray Angiograph y 06/29/2023 9:12 PM CDT Narrative Transcriptions Lonny Mahan MD - 06/29/2023 11:14 PM CDT [facility] Cardiac Catheterization Report Name: NANCI CORONEL Event Date: 06/29/2023 21:12 Excellian ID #: [id number] SURINDER #: [id number] Diagnostic Physician: LONNY MAHAN [facility] Interventional Physician: LONNY MAHAN [facility] Referring Physician: Primary Care Physician: TIMOTEO BEAVERS Date: 1965 Gender: Female Age: 58 Summary/Conclusions PRESENTATION / INDICATIONS * Out of hospital cardiac arrest * Symptomatic complete heart block * Known cardiac sarcoid * Emergent Clerk General Office activation VASCULAR ACCESS * Using ultrasound guidance [...] of complete heartblock upon arrival to the Clerk General Office. RECOMMENDATIONS & PLAN * No angiographically significant coronary artery disease * Successful placement of a transvenous temporary pacemaker into the RVapex. Rate set at 80 bpm at 5 mA. * Transfer to the ICU * Initiate high-dose steroids * Echocardiogram in a.m. * Anticipate implantation of QC MANAGER D device * Results discussed with inpatient cardiology and ICU teams Consent & [place] Protocol The risks, benefits, and alternatives of the procedure were discussed withthe patient and written informed consent was obtained. [place] protocol was followed. TIME OUT conducted just prior tostarting procedure confirmed patient identity, site/side, procedure,patient position, and availability of correct equipment and implants (ifapplicable). Staff Name Title Lonny Mahan Pickle Water Pump Operator Verónica Meza RN Shante Jackson RN Nurse Joanne Rasmussen RTR Scrub Marlyn Salomon CVT Monitor Procedures [...] min Cumulative Air Kerma: 556 mGy DAP: 00986 mGy/cm2 Contrast: Visipaque 320, 40 ml Physiologic Data Actual VO2: 273.15 Weight: 102.1 kg BSA: 2.12 m2 Vascular Access Time Access Sheath Size 21:14 Percutaneous Puncture to RFA 21:15 Percutaneous Puncture to RFV Complications ? No Complications Medications Ordered and Administered Start Time Stop Time Medication Dose Units Route Ordered By Given By :07 21:42 Dopamine (New Bag) 5 mcg per [...] healthcare professional providing the sedation ends personal ijsofieagnfeab-vp-skmn time with the patient. The medications listed above were verbally ordered by me and read back tome as documented above. Refer to the procedure log report for additional case details. electronically signed on 06/29/2023 11:14:04 PM with status of Final Lonny Mahan MD [address], [place] [address] [place] [address] (p) [phone](f) Images Snapshot: 3 Lonny Mahan MD CV IMAGING * (ABNORMAL) TROPONIN T (HS) ONE TIME (06/29/2023 9:00 PM CDT) TROPONIN T HS 298(H) 6-10 ng/L ng/L 06/29/2023 10:16 PM CDT [facility] Blood BLOOD SPECIMEN / Unknown Non-Lab Venipuncture / Unknown 06/29/2023 9:00 PM CDT 06/29/2023 9:46 PM CDT Narrative [facility] - 06/29/2023 10:16 PM CDT [...] Lonny Mahan MD CHEMISTRY Performing Organization Address [facility]/ZIP Co de Phone Number [facility] SENDOUT INTERNAL ZIP [address] [place] [address] * EXTRA TUBE GOLD/SST (06/29/2023 9:00 PM CDT) Blood BLOOD SPECIMEN / Unknown Extra Tube / Unknown 06/29/2023 9:00 PM CDT 06/29/2023 9:46 PM CDT Doctor Unknown LABORATORY Performing Organization Address [facility]/ZIP Co de Phone Number [facility] SENDOUT INTERNAL ZIP [phone] [place] [address] * TSH (06/29/2023 9:00 PM CDT) TSH 1.61 0.27 - 4.20 uIU/mL 06/29/2023 10:36 PM CDT [facility] Blood BLOOD SPECIMEN / Unknown Non-Lab Venipuncture / Unknown 06/29/2023 9:00 PM CDT 06/29/2023 9:46 PM CDT Narrative [facility] - 06/29/2023 10:36 PM CDT In Adults, TSH values between 5.00 and 10.00 uIU/ml do not necessarily indicate the presence of Hypothyroidism. Correlation with clinical findings such as presence of goiter and/or Thyroperoxidase (TPO) Antibody may be helpful. For more information please refer to RHONDA 2004; 291: 228-238. Anh Kendrick DO CHEMISTRY Performing Organization Address [facility]/ZIP Co de Phone Number [facility] SENDOUT [place]NAL ZIP [address] [address] [place] [address] * PROTIME-INR (06/29/2023 9:00 PM CDT) INR 1.1 <1.3 06/29/2023 9:57 PM CDT [facility] PROTIME 12.2 10.3 - 12.3 sec 06/29/2023 9:57 PM CDT [facility] Blood BLOOD SPECIMEN / Unknown Non-Lab Venipuncture / Unknown 06/29/2023 9:00 PM CDT 06/29/2023 9:46 PM CDT Narrative [facility] - 06/29/2023 9:57 PM CDT [...] is on UFH. Lonny Mahan MD HEMATOLOGY [facility] SENDOUT INTERNAL [facility] [address] [address] [place] [address] * SCAN-CARDIAC STRIP (06/29/2023 12:00 AM CDT) [...] care provider. XR MAMMO GHAZALA BILAT SCREEN [[id number]] CLINICAL HISTORY: ??This is an asymptomatic 57 [...] calcifications or areas of architectural distortion. Gayathri Carroll PA MAMMO * (ABNORMAL) LC LIPID PANEL AND CHOL/HDL RATIO (05/28/2022 10:50 AM CDT) Pathologist [facility] Cholesterol, Total 194 100 - 199 mg/dL 05/30/2022 9:10 AM CDT [facility] ([facility]) Triglycerides 120 0 - 149 mg/dL 05/30/2022 9:10 AM CDT [facility] ([facility]) HDL Cholesterol 52 >39 mg/dL 3 9:10 AM CDT [facility] ([facility]) VLDL Cholesterol Chase 21 5 - 40 mg/dL 05/30/2022 9:10 AM CDT [facility] ([facility]) LDL Chol Calc ([facility]) 121(H) 0 - 99 mg/dL 05/30/2022 9:10 AM CDT [facility] ([facility]) T. Chol/HDL Ratio 3.7 0.0 - 4.4 ratio 05/30/2022 9:10 AM T [facility] ([facility]) Comment: ?T. Chol/HDL Ratio ?Men ??Women ?1/2 Avg.Risk ??3.4 ?3.3 ?Avg.Risk ??5.0 ?4.4 ? 2X Avg.Risk ??9.6 ?7.1 ? 3X Avg.Risk 23.4 ?? 11.0 Blood BLOOD SPECIMEN / Unknown Venipuncture / Unknown 05/28/2022 10:50 AM CDT 05/28/2022 10:51 AM CDT Narrative [facility] ([facility]) - 05/30/2022 9:10 AM CDT Performed at: ??01 - [facility] [address], [place] ??[id number] Occupational Health Specialist: Trell Calderon MD, Phone: ??[phone] Gayathri GREENE SEND OUTS [facility] ([facility]) [address] [place] [address], * ANTI HCV (05/22/2021 2:25 PM CDT) HEPATITIS C ANTIBODY Non-React milton Non-React milton 05/22/2021 11:58 PM CDT [facility] Comment:Antibodies to HCV no t detected; does not exclude the possibility of exposure to HCV. Blood BLOOD SPECIMEN / Unknown Venipuncture / Unknown 05/22/2021 2:25 PM CDT 05/22/2021 2:28 PM CDT [facility]ath[facility] [address] [place] [address], * HPV HIGH RISK (05/22/2021 2:02 PM CDT) TYPE 16 Negative Negative 05/24/2021 5:38 PM CDT [facility] TYPE 18 Negative Negative 05/24/2021 5:38 PM CDT [facility] OTHER HIGH RISK TYPES Negative Negative 05/24/2021 5:38 PM CDT [facility] Other (Cervical) Non-Blood / Unknown 05/22/2021 2:02 PM CDT 05/23/2021 8:32 AM CDT Narrative [facility] - 05/24/2021 5:38 PM CDT HPV types 16, 18, 31, 33, 35, 39, 45, 51, 52, 56, 58, 59, 66 and 68 DNA were undetectable or below the pre-set threshold. Methodology: Coleen Abel 4800 HPV Test Gayathri [facility] [address] [place] [address], from Last 3 Months or Most Recently Relevant to Health Maintenance Advance Directives Documents on File Type Date Recorded Patient Qa Automation Engineer Expl anation POLST 07/19/2023 Healthcare Directive 02/20/2022 invalid , missing page 02/20/2022 * Full Code (Latest Code Status on File) Date Activated Date Inactivated Comments 06/29/2023 10:12 PM 07/09/2023 6:12 PM Question Answer Comments Code Status Discussion: Reviewed Preferences * Full Code Date Activated Date Inactivated Comments 02/21/2022 11:30 AM 02/22/2022 12:12 PM Question Answer Comments Code Status Discussion: Reviewed Preferences Care Teams Trash Collector Relationship Specialty Start Date End Date Timoteo Beavers MD [address] [place] [address] PCP - General Family Practice 06/17/23
--- OUTSIDE RECORDS SUMMARY | 2023-08-14 01:21 | XMS_ITS | Encounter Summary ---
Author Organization [facility] Address [address] [place] [address] Care Team Providers Care Utility Hand Name Role Phone Unavailable Primary Care Provider Unavailabl e Reason for Referral * MRI/CAT/PET Scan (Routine) - Pending Review Specialty Diagnoses / Procedures Referred By Contac t Referred To Contact Radiology Diagnoses Sarcoidosis Procedures CT Chest without IV Contrast Rajat Pizarro M.B.B.S. [address] [place] [phone] [facility] Referral ID Status Reason Start Date Expiration Date V isits Requested Visits Authorized [id number] Pending Review 06/13/2023 06/12/2024 1 1 * Outpatient (Routine) - Authorized Specialty Diagnoses / Procedures Referred By Contac t Referred To Contact Rheumatology Rajat Pizarro M.B.B.S. [address] [place] [phone] [facility] Referral ID Status Reason Start Date Expiration Date V isits Requested Visits Authorized [id number] Authorized 06/13/2023 12/12/2024 1 1 * Specialty Diagnoses / Procedures Referred By Contac t Referred To Contact Olivia Arreguin M.D. 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 [address] [place] [phone] [facility] Referral ID Status Reason Start Date Expiration Date Visits Re quested Visits Authorized [id number] Closed 06/12/2023 06/11/2024 1 1 Reason for Visit * Outpatient (Routine) - Closed Specialty Diagnoses / Procedures Referred By Martina david Referred To Contact Rheumatology Diagnoses Sarcoidosis Neisha Nolan APRN, C.N.P., M.S.N. 200 [place] [address] [facility] Referral ID Status Reason Start Date Expiration Date Visits Re quested Visits Authorized [id number] Closed 04/05/2023 10/04/2024 1 1 Encounter Details Date Type Department Care Team (Latest Contact Info) Description 06/12/2023 10:15 AM CDT Comprehensive Visit Division of Rheumatology in [place], [place] [address] [place] [phone] Rajat Pizarro M.B.B.S. [address] [place] [phone] Sarcoidosis (Primary Dx); Corticosteroid Treatment Garden Equipment Mechanic Systemic; Immunodeficiency Due To Drugs (HCC); Elevated Alkaline Phosphatase Social History Tobacco Use Types Packs/Day Years Used Date Smoking Tobacco: Former Cigarettes 0.5 10 0 02/25/1994 - 02/26/2004 Passive Smoke Exposure: Past Smokeless Tobacco: Never Alcohol Use Standard Drinks/Week Comments Yes 2 (1 standard drink = 0.6 oz pur e alcohol) [facility] Utilities Answer Date Recorded In the past 12 months has [employer], gas, oil, or water company threatened to [...] often do you attend chur ch or mu-ism services? More than 4 times [...] and heating? Not hard at all 11/22/2021 [facility] - [...] your living situation today? I have a [facility] place to live 03/30/2023 Education Answer Date Recorded What is the highest level of school you have completed or the highest degree you have received? Master's degree (e.g., MA, MS, Arti, MEd, OPHTHALMIC TECHNICIAN APPRENTICE, GALA) 11/22/2021 Sex and Gender Information Value Date Recorded Sex Assigned at Female 11/22/2021 11:24 PM CDT Gender Identity Female 11/22/2021 11:24 PM CDT Sexual Orientation Lesbian or Alonso 11/22/2021 11 :24 PM CDT documented as of this encounter Patient Instructions * Patient Instructions* Olivia Arreguin M.D. - 06/12/2023 10:15 AM CDT Glaze Mixer- yearly, fax records to us Methotrexate Dr. [...] 2021 for frequent PVCs by a local metabolic specialist. She was not noted to have structural heart disease with just mild mitral regurgitation with mild mitral valve prolapse of the posterior leaflet. She established with a metabolic specialist in [place] in early 2021 after moving to [place]. A Holter demonstrated 19.3% PVC burden, some [...] not noticed wheezing. The Dulera that her pot annealer prescribed has been helpful. She has not [...] her labs are acceptable. [facility] today to review subcutaneous methotrexate administration. [...] follow-up in the Division of Rheumatology at [facility] with Dr. Pizarro. Next appointment in 6 months. Rheumatology-related medications: Prescriptions, laboratory monitoring, and refills will be managedby the Division of Rheumatology at [facility]. Disease flares or relapse: Division of [...] patient is a 58 yo female from [facility] who has seen Dr Ricky kwan in [...] lupus pernio Treatment Prednisone burst and taper ([id number]) Cellcept Has been off treatment for 6 [...] Nurse education for methotrexate Uveitis screen by mannequin decorator locally, reports to be faxed to us [...] and methotrexate Rest per Dr. Rodríguez SHIRLEY Velocity Shooter Rheumatology documented in this encounter Plan of Treatment Upcoming Encounters Date Type Department Care Team (Latest Contact Info) Description 08/16/2023 8:15 AM CDT Clinical Communication Virtual Review in [place], [place] [address] [place] [phone] 08/20/2023 8:40 AM CDT Appointment Department of Cardiovascular Diseases in [place], [place] [address] [place] [address] Neisha Nolan APRN, C.N.P., M.S.N. 08/20/2023 9:10 AM CDT Appointment Department of Laboratory Medicine and Pathology, [facility] in [place], [place] [address] [place] [phone] Neisha Nolan APRN, C.N.P., M.S.N. 08/20/2023 10:45 AM CDT Appointment Department of Cardiovascular Diseases in [place], [place] [address] [place] [address] Rajat Pizarro I., M.B.B.S. [address] [place] [phone] 08/20/2023 1:15 PM CDT Appointment Department of Radiology, [facility] in [place], [place] [address] [place] [phone] Neisha Nolan APRN, C.N.P., M.S.N. 08/21/2023 9:00 AM CDT Office Visit Department of Cardiovascular Medicine in [place], [place] [address] [place] [phone] Ghada Perdomo APRN, C.N.P., M.S.N. [address] [place] [phone] 08/21/2023 11:45 AM CDT Ancillary Procedure Department of Cardiovascular Medicine in [place], [place] [address] [place] [phone] Rajat Pizarro I., M.B.B.S. [address] [place] [phone] 08/21/2023 1:00 PM CDT Comprehensive Visit Department of Cardiovascular Medicine in [place], [place] [address] [place] [phone] Hamilton Babcock M.D. [address] [place] [phone] 10/21/2023 9:45 AM CDT Clinical Communication Virtual Review in [place], [place] 200 [place] [address] 10/23/2023 7:30 AM CDT Diagnostic Division of Pulmonary Medicine in [place], [place] [address] [place] [phone] Rajat Pizarro M.B.B.S. [address] [place] [phone] 10/23/2023 8:40 AM CDT Appointment Department of Laboratory Medicine and Pathology, [facility] in [address] [phone] Rajat Pizarro M.B.B.S. [address] [place] [phone] 10/23/2023 9:15 AM CDT Appointment Department of Radiology, [facility], in [address] [phone] Rajat Pizarro M.B.B.S. [address] [place] [phone] 10/23/2023 10:00 AM CDT Office Visit Division of Rheumatology in [address] [phone] Rajat Pizarro M.B.B.S. [address] [place] [phone] Scheduled Orders Name Type Priority Associated Diagnoses [...] Bone Mineral Density (BMD) analysis performed on [employer] with serial number [id number]. ? FINDINGS: Left Hip: Femur Neck: BMD [...] including images and graphs, is available in [facility]H. In the absence of other causes of [...] image stored in the BMD study in [employer]), the calculated ten year probability of fracture is: FRAX Risk Factors: None FRAX (10 yr probability) adjusted for TBS: Major Osteoporotic Fracture: ??4.4 % Hip Fracture: ?0.2 % ? Procedure Note Scot Carrasco M.D. - 06/12/2023 EXAM: BMD BONE DENSITY SPINE HIPS Bone Mineral Density (BMD) analysis performed on [employer] with serialnumber [id number]. FINDINGS: Left Hip: Femur Neck: BMD = [...] Olivia Arreguin M.D. LAB URINE ALEXANDER OLSEN [facility] [place] [address] [place] [address], [facility] DTL [facility] 200 [place] [address] * Urinalysis, with Microscopic: Urine, Midstream (06/12/2023 [...] Olivia Arreguin M.D. LAB URINE ALEXANDER OLSEN [facility] [place] [address] [place] [address], [facility] DTL [facility] 200 [place] [address] * Calcium/Creatinine Ratio, Random, Urine (06/12/2023 12:31 [...] LAB URINE ORDE RABLES Performing Organization Address City/[facility]/ZIP Co de Phone Number [facility] [place] 200 [place] [address] * (ABNORMAL) CRP (C-Reactive Protein) (06/12/2023 12:28 PM CDT) Pathologist [facility] C-Reactive Protein (CRP), S 5.2(H) <5.0 mg/L 06/12/2023 1:27 PM CDT DT Blood (Blood, Venous) 06/12/2023 12:28 PM CDT 06/12/2023 1:04 PM CDT Olivia Arreguin M.D. LAB BLOOD ADD- ON [facility] [place] 200 [place] [address], [place] [address] * HBc Total Ab, Serum (06/12/2023 12:28 PM CDT) HBc Total Ab, S Negative Negative 06/12/2023 8:08 PM CDT [facility] Blood (Blood, Venous) 06/12/2023 12:28 PM CDT 06/12/2023 4:50 PM CDT Olivia Arreguin M.D. LAB MICROBIOLO GY - BLOOD ORDERABLES Performing Organization Address [facility] Co de Phone Number [facility] [address] [place] [address] [facility] [address] [place] [address] * HBs Antibody, Serum (06/12/2023 12:28 PM CDT) HBs Antibody, S Negative 06/12/2023 8:08 PM CDT [facility] Comment: Patient is presumed to be not immune to infection with HBV. ----REFERENCE VALUE---- Unvaccinated: Negative Vaccinated: Positive HBs Antibody, Quantitative, S <5.0 mIU/mL 06/12/2023 8:08 PM CDT [facility] Comment: ----REFERENCE VALUE---- Unvaccinated: <5.0 Vaccinated: >=12.0 Blood (Blood, Venous) 06/12/2023 12:28 PM CDT 06/12/2023 4:50 PM CDT Olivia Arreguin M.D. LAB MICROBIOLO GY - BLOOD ORDERABLES Performing Organization Address [facility] Co de Phone Number [facility] [address] [place] [address] [facility] [address] [place] [address] * (ABNORMAL) Comprehensive Metabolic Panel (06/12/2023 12:28 [...] Olivia Arreguin M.D. LAB BLOOD ADD- ON [facility] [address] [place] [address], [place] DTL [facility] [address] [place] [address] * Sedimentation Rate (06/12/2023 12:27 PM CDT) Sedimentation Rate, B 16 2 - 22 mm/h 06/12/2023 1:57 PM CDT DT Blood (Blood, Venous) 06/12/2023 12:27 PM CDT 06/12/2023 12:51 PM CDT Olivia Arreguin M.D. LAB BLOOD ADD- ON [facility] [place] [address] [place] [address], [facility] [address] [place] [address] * HCV Ab w/Reflex to HCV PCR, Serum (06/12/2023 12:27 PM CDT) [facility] HCV Ab, S Negative Negative 06/14/2023 10:56 AM CDT [facility] Comment: Consumption of high-dose biotin supplement within 12 hours of blood collection for this test can cause false-negative results. Blood (Blood, Venous) 06/12/2023 12:27 PM CDT 06/12/2023 4:50 PM CDT Olivia Arreguin M.D. LAB MICROBIOLO GY - BLOOD ORDERABLES Performing Organization Address [facility] Co de Phone Number [facility] [address] [place] [address] [facility] [address] [place] [address] * Hepatitis B Surface Antigen (06/12/2023 12:27 PM CDT) Pathologist [facility] [place] HBs Antigen, S Negative Negative 06/14/2023 10:56 AM CDT [facility] Blood (Blood, Venous) 06/12/2023 12:27 PM CDT 06/12/2023 4:50 PM CDT Olivia Arreguin M.D. LAB MICROBIOLO GY - BLOOD ORDERABLES [facility] [address] [place] [address] [facility] [address] [place] [address] * 1,25-Dihydroxyvitamin D (06/12/2023 12:27 PM CDT) [facility] 1, 25 DIHYDROXYVITAMIN D, S 41 18 - 78 pg/mL 06/14/2023 2:01 PM CDT [facility] Comment: ----ADDITIONAL INFORMATION---- This test was developed and its performance characteristics determined by [facility] in a manner consistent with CLIA requirements. This test has not been cleared or approved by the U.S. Food and Drug Administration. Blood (Blood, Venous) 06/12/2023 12:27 PM CDT 06/13/2023 7:43 AM CDT Olivia Arreguin M.D. LAB BLOOD ADD- ON [facility] [address] [place] [address] [facility] [address] [place] [address] [place] [address] * (ABNORMAL) 25-Hydroxyvitamin D2 and D3 (06/12/2023 12:27 PM CDT) [facility] 25-Hydroxy D2 <4.0 ng/mL 06/17/2023 1:31 PM CDT [facility] 25-Hydroxy D3 16 ng/mL 06/17/2023 1:31 PM CDT [facility] 25-Hydroxy D Total 16(L) ng/mL 2023 1:31 PM CDT [facility] Comment: Interpretation: 10-19 ng/mL (mild to moderate deficiency) ----REFERENCE VALUE---- 25-HYDROXY D TOTAL (D2+D3) Optimum levels in the healthy population are 20-50, patients with bone disease may benefit from higher levels within this range. ----ADDITIONAL INFORMATION---- This test was developed and its performance characteristics determined by [facility] in a manner consistent with CLIA requirements. This test has not been cleared or approved by the U.S. Food and Drug Administration. Blood (Blood, Venous) 06/12/2023 12:27 PM CDT 06/13/2023 7:17 AM CDT Olivia Arreguin M.D. LAB BLOOD ADD- ON [facility] [address] [place] [address] [facility] [address] [place] [address] [place] [address] * (ABNORMAL) CBC with Differential, Blood (06/12/2023 12:27 PM CDT) [facility] Hemoglobin 13.4 11.6 - 15.0 g/dL 06/12/2023 [...] Olivia Arreguin M.D. LAB BLOOD ADD- ON [facility] [place] [address] [place] [address], [facility] [address] [place] [address] [facility] [address] [place] [address] * GGT (Gamma-Glutamyltransferase) (06/12/2023 12:22 PM CDT) Gamma Glutamyltransferase (GGT), S 10 5 - 36 U/L 06/12/2023 6:19 PM CDT DTL Blood (Blood, Venous) 06/12/2023 12:22 PM CDT 06/12/2023 5:18 PM CDT Olivia Arreguin M.D. 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
--- OUTSIDE RECORDS SUMMARY | 2023-08-14 01:21 | XMS_ITS | Encounter Summary ---
Author Organization [facility] Address [address] [place] [address] Care Team Providers Care Evaluator Name Role Phone Unavailable Primary Care Provider Unavailabl e Encounter Details Date Type Department Care Team ([facility] st Contact Info) Description 05/07/2023 Orders Only Division of Gastroenterology in [place], [place] [address] [place] [phone] Emeterio Friedman M.D. [address] [place] [address] Genetic Susceptibility To Disease Social History Tobacco Use Types Packs/Day Years Used Date Smoking Tobacco: Former Cigarettes 0.5 10 0 02/25/1994 - 02/26/2004 Smokeless Tobacco: Never Alcohol Use Standard Drinks/Week Comments Yes 2 (1 standard drink = 0.6 oz pur e alcohol) [facility] Utilities Answer Date Recorded In the past 12 months has [facility] [employer], gas, oil, or water [employer] threatened to shut off services in your [...] often do you attend [facility] or latter-day services? More than 4 times per year [...] heating? Not hard at all 11/22/2021 [facility] - [...] degree (e.g., MA, MS, Arti, MEd, MANAGER INFRASTRUCTURE, GALA) 11/22/2021 Sex and Gender Information Value Date Recorded Sex Assigned at Female 11/22/2021 11:24 PM CDT Gender Identity Female 11/22/2021 11:24 PM CDT Sexual Orientation Lesbian or Alonso 11/22/2021 11 :24 PM CDT documented as of this encounter Plan of Treatment Upcoming Encounters Date Type Department Care Team (Latest Contact Info) Description 08/16/2023 8:15 AM CDT Clinical Communication Virtual Review in [place], [place] [address] [place] [address] 08/20/2023 8:40 AM CDT Appointment Department of Cardiovascular Diseases in [address] [phone] Neisha Nolan, JESSIKA, C.N.P., M.S.N. 08/20/2023 9:10 AM CDT Appointment Department of Laboratory Medicine and Pathology, [facility] in [place], [place] [address] [place] [phone] Neisha Nolan APRN, C.N.P., M.S.N. 08/20/2023 10:45 AM CDT Appointment Department of Cardiovascular Diseases in [place], [place] [address] [place] [address] Rajat Pizarro M.B.B.S. [address] [place] [phone] 08/20/2023 1:15 PM CDT Appointment Department of Radiology, [facility] in [place], [place] [address] [place] [phone] Neisha Nolan APRN, C.N.P., M.S.N. 08/21/2023 9:00 AM CDT Office Visit Department of Cardiovascular Medicine in [place], [place] [address] [place] [phone] Ghada Perdomo APRN, C.N.P., M.S.N. [address] [place] [phone] 08/21/2023 11:45 AM CDT Ancillary Procedure Department of Cardiovascular Medicine in [place], [place] [address] [place] [phone] Rajat Pizarro M.Mehnaz.B.S. [address] [place] [phone] 08/21/2023 1:00 PM CDT Comprehensive Visit Department of Cardiovascular Medicine in [place], [place] [address] [place] [phone] Hamilton Babcock M.D. [address] [place] [phone] 10/21/2023 9:45 AM CDT Clinical Communication Virtual Review in [place], [place] 200 [place] [address] 10/23/2023 7:30 AM CDT Diagnostic Division of Pulmonary Medicine in [place], [place] [address] [place] [phone] Rajat Pizarro M.B.B.S. [address] [place] [phone] 10/23/2023 8:40 AM CDT [facility]ment [facility] [place] [address] [place] [phone] Rajat Pizarro M.B.B.S. [address] [place] [phone] 10/23/2023 9:15 AM CDT [facility] [place] [address] [place] [phone] Rajat Pizarro M.B.B.S. [address] [place] [phone] 10/23/2023 10:00 AM CDT Office Visit Division of Rheumatology in [address] [phone] Rajat Pizarro M.B.B.S. [address] [place] [phone] documented as of this encounter Procedures Procedure Name Priority Date/Time Associated Diagnosis Comments EXT TAPESTRY Routine 02/05/2022 12:00 AM POCKET MACHINE OPERATOR Genetic Susceptibility To Disease documented in this encounter Results * EXT Tapestry (02/05/2022 12:00 AM POCKET MACHINE OPERATOR) Gene Studied BRCA1,BRCA2,MLH1,MSH 2, MSH6,PMS2,EPCAM,APOB,L DLR,LDLRAP1,PCSK9 03/12/2022 12:00 AM [facility] Genetic Disease Assessed Evaluation of 11 genes associated with Hereditary Breast and Ovarian Cancer, Eric Syndrome and Familial Hypercholesterolemia. 03/12/2022 12:00 AM POCKET MACHINE OPERATOR CHARANJIT Genetic Analysis Overall Interpretation Negative results through Tapestry do not replace diagnostic testing for patients with a personal or family history of cancer/hypercholestero lemia due to limitations with methodology. Consider a referral to a genetic counselor for diagnostic testing if warranted. 03/12/2022 12:00 AM [facility] Genetic Analysis Report See Tapestry PDF Report [...] enriched using a custom set of reagents (Signdat+ chemistry). Targeted regions were sequenced using an Illumina DNA sequencing system. Your sequence was matched to a modified version of the [place] standard reference genome (GRCh38). Variant calling was completed using a customized version of [employer] software, requiring 20x coverage for validated variant calls. Copy Number Variants (CNVs) were called using a proprietary bioinformatics pipeline that compared the coverage profile of your sample with the coverage profiles of other reference set samples. [facility] [employer] then analyzed the generated variant data for the exons and 10 bp of flanking intronic sequence (and select tagged intronic variants) of the 11 genes included in Viewdle from the [employer] Database. Your sample was reviewed for single [...] assessments and medical management. 03/12/2022 12:00 AM POCKET MACHINE OPERATOR CHARANJIT Human Reference Sequence Assembly GRCh38 03/12/2022 12:00 AM RUST CHARANJIT Saliva (Mouth) 02/05/2022 Emeterio Friedman M.D. LAB GENETI C TESTING HELIX [employer] [address] [facility], [address] [place] [address], [facility] CHARANJIT [employer] [address] [address], [address]. [place] [address] documented in this encounter Visit Diagnoses Diagnosis Genetic Susceptibility To Disease documented in this encounter
== END 2023-08-14 03:00 | disposition home or self-care (01) ==
PROVIDERS: Emergency Provider Family Medicine; PCP Family Medicine
DX: D86.9 Sarcoidosis, unspecified (principal); T45.1X1A Poisoning by antineoplastic and immunosuppressive drugs, accidental (unintentional), initial encounter
CPT/HCPCS: 70491; 71260; 82565; 94761; 99283; 99284; Q9967

== ENCOUNTER 2023-09-17 15:45 | Outpatient (RCR) | payer BC, SELFPAY ==
--- NOTE | 2023-08-06 16:46 | OT.OPGNE2 ---
OT Outpatient General/Neuro Eval OT Outpatient General/Neuro Eval* Start: 08/06/23 12:29 Freq: Status: Active Protocol: Document 08/05/23 09:15 MATTEO (Rec: 08/06/23 12:59 MATTEO [id number]) E-signed By Neda White, OTR/L, CLT OT Outpatient Evaluation Details Type Type Eval Complexity Medium Insurance Information Insurance Information Insurance Information Blue Cross/Blue Shield Outpatient History/Precautions Current Condition Referring Provider Dr. Lavern Beavers Medical Diagnoses I46.9 Cardiac Arrest D86.9 Sarcoidosis Treatment Diagnoses Other signs and symptoms involving cognitive function R41.89 Mild Cognitive Impairment G31. 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 [employer] Prior Medical History Prior Medical History PMH: Ventricular trigeminy I49.8 - Other specified cardiac arrhythmias (ICD-10) Mitral valve regurgitation I34.0 - Nonrheumatic mitral ( valve) insufficiency (ICD-10) Depression F32.A - Depression, unspecified (ICD-10) Anxiety F41.9 - Anxiety disorder, unspecified (ICD-10) Sarcoidosis D86.9 - Sarcoidosis, unspecified (ICD-10) 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 - Immunodeficiency due to drugs (ICD-10) Z79.899 - Other assistant terminal manager ( current) drug therapy (ICD-10) Patient had a Pacemaker placed on 07/04/2023 Medications: mycophenolate mofetil 500 mg tablet 1,000 mg PO BID mycophenolate mofetil 250 mg capsule 250 mg PO BID Rx Instructions: WITH 1000 MG TO EQUAL 1250 MG benzonatate 200 mg capsule 200 mg PO TID PRN (Reason: cough) Qty: 30 1RF codeine-guaifenesin 10-100 mg/ 5 mL liquid 5 - 10 ml PO Q6H PRN (Reason: cough) Qty: 473 0RF nortriptyline 10 mg capsule 20 mg PO HS quetiapine 25 mg tablet 25 mg PO HS Dulera 50-5 mcg/actuation HFA aerosol inhaler 2 inh inhalation BID Mucus DM 30-600 mg tablet extended release 12 hr 1 tab PO BID PRN metronidazole 0.75 % cream 1 applic topical .1-2X/DAY Rx Instructions: TO FACE albuterol sulfate 90 mcg/ actuation HFA aerosol inhaler 2 inh inhalation Q4H PRN prednisone 20 mg Tablet See Rx Instructions .ROUTE . COMPLEX Qty: 12 0RF Rx Instructions: Take 2 tabs daily for 2 days, then 1 tab daily for 5 days, then 1/2 tab daily for 5 days, then stop. nystatin 100,000 unit/mL suspension 5 ml PO QID 14 Days Qty: 280 0RF Rx Instructions: swish and swallow hydrocodone-acetaminophen 5- 325 mg tablet 1 tab PO Q4-6H PRN (Reason: pain) Qty: 15 0RF ondansetron HCl 4 mg tablet 4 mg PO Q6H Qty: 10 0RF ketorolac 10 mg tablet 10 mg PO Q8H 5 Days Qty: 15 0RF Precautions General Precautions PACEMAKER Social History Employment Status [employer] Employed Current Occupation Spending time with her and 2 children (22 y.o daughter and 12 y.o son) Patient Subjective Subjective Patient Subjective Nanci is a very pleasant 58- year-old R hand dominant female with a 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 Nanci's Dinorah states Nanci was noted to have been sitting at the table at home and got up to walk to another room when she heard Nanci fall to the floor. Nanci was having raspy respirations and did have a pulse initially. Dinorah thought perhaps Nanci was having an allergic reaction and gave her a dose of the EpiPen. She did start chest compressions when she thought Nanci was not breathing. EMS arrived in 7-8 minutes and a Luis Angel was applied. Monitor showed V- tach and Nanci was given 1 shock as well as 1 mg of IV epinephrine through an IO which was placed and with continued post shock compressions. At the next rhythm check she had achieved ROSC. Rhythm appeared to be a sinus bradycardia with frequent PVCs. She had an LMA placed by EMS as well as an IO and they were infusing fluids and a total of 250 mL had been given. Nanci was then transferred to the [facility] emergency room. Once in the emergency room patient had a systolic blood pressure of 98 and a pulse in the high 30s and low 40s. She was not moving and had not been given any paralytics or sedation for the placement of the LMA. She was then transferred to [facility] (no medical records from this hospital). Pain Assessment Pain Pain No Cognitive Assessments Performed Oriented Patient oriented Person,Place,Time,Situation Vision/Hearing Vision Tracking WNL Saccades WNL Near Point of Convergence Impaired Near Point of Convergence Comments slow Vision Changes Blurring Vision Changes Comments Patient does wear eye glasses at her baseline level and has scheduled an eye exam with her regular eye doctor. 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 Nanci's Dinorah states Nanci was noted to have been sitting at the table at home and got up to walk to another room when she heard Nanci fall to the floor. Nanci was having raspy respirations and did have a pulse initially. Dinorah thought perhaps Nnaci was having an allergic reaction and gave her a dose of the EpiPen. She did start chest compressions when she thought Nanci was not breathing. EMS arrived in 7-8 minutes and a Luis Angel was applied. Monitor showed V-tach and Nanci was given 1 shock as well as 1 mg of IV epinephrine through an IO which was placed and with continued post shock compressions. At the next rhythm check she had achieved ROSC. Rhythm appeared to be a sinus bradycardia with frequent PVCs. She had an LMA placed by EMS as well as an IO and they were infusing fluids and a total of 250 mL had been given. Nanci was then transferred to the [facility] emergency room. Once in the emergency room patient had a systolic blood pressure of 98 and a pulse in the high 30s and low 40s. She was not moving and had not been given any paralytics or sedation for the placement of the LMA. She was then transferred to [facility] (no medical records from this hospital). Upon D/C from the hospital, patient began with Home Health nursing/PT and OT, she has graduated from home care and now presents to Outpatient therapy to begin Neuro-re- education, Cognitive therapy and advancing her IADLs ( working and driving) (she is currently on STD and has a goal to return back to work in Sep (<2 months). Patient is highly motivated and anticipated to make progress with skilled therapy. Occupational Therapy Treatment Plan - OP Potential Rehabilitation Potential Excellent Set Goals Goals Set with Patient Yes Goals Goals 1. Patient will be able to return to meaningful roles through physical, cognitive, mental and social interventions for greater quality of life. 2. The patient will actively engage in Cognitive & Visual assessments to determine level of functional problem solving and safety awareness relative to return to work recommendations. 3. The patient will complete assessments relative to driving skills in order to give safe driving recommendations to patient/ family and PCP. 4. The patient will advance from following a 1 step verbal direction to a 3-step verbal direction, independently, 100% of trials, to improve sequencing and memory recall skills used in functional daily routines. Treatment Plan Treatment Plan Evaluation,Manual Therapy, Therapeutic Exercise, Therapeutic Activities,Self- Care/Home Management,Education ,Functional/Cognitive Skills, Neuromuscular Reeducation Expected Frequency 1-2x Week Expected Duration 12 + weeks Certification Certification Statement I Certify That: Therapy Services Provided, Therapy Plan Established, Therapy Plan Reviewed Certification Information Clinic ID # [id number] Initial Certification Date 08/05/23 Recertification Due Date 11/03/23 Provider Signature Required Yes Provider Signature Shows Agreement With POC & Medical Necessity Physician NPI Number Write NPI# Here Physician Comment/Change Comment or Changes Physician Signature & Date Requested Please Sign/Date Here
== END 2023-09-17 17:15 | disposition home or self-care (01) ==
PROVIDERS: PCP Physician Assistant Medical; Visit Provider Family Medicine
DX: I46.9 Cardiac arrest, cause unspecified (principal); D86.9 Sarcoidosis, unspecified; R41.89 Other symptoms and signs involving cognitive functions and awareness; Z51.89 Encounter for other specified aftercare
CPT/HCPCS: 97112; 97166; 97535

== ENCOUNTER 2024-06-04 08:18 | Inpatient (IN) | payer BC, SELFPAY ==
[2024-06-04] VITALS (27 sets, daily range): BP systolic 111–125; BP diastolic 58–77; PULSE 62–100; RESP 16–40; TEMP 36.5–38.5; O2SAT 86–98; BMI 33.7; BMI 34.5
--- OUTSIDE RECORDS SUMMARY | 2024-06-04 08:21 | XMS_ITS | Encounter Summary ---
Author Organization [facility] Address [address] [place] [address] Care Team Providers Care Oil Expeller Name Role Phone Elsewhere, Pcp Primary Care Provider Unavailabl e Encounter Details Date Type Department Care Team (Latest Contact Info) Description 04/17/2024 Results Follow-Up Division of Rheumatology in [place], [place] [address] [place] [phone] Neena Espinoza, JEWELRY SETTER, C.N.P., D.N.P. [address] [place] [phone] Creatinine with Estimated GFR Social History Tobacco Use Types Packs/Day Years Used Date Smoking Tobacco: Former Cigarettes 0.5 10 0 02/25/1994 - 02/26/2004 Passive Smoke Exposure: Past Smokeless Tobacco: Never Alcohol Use Standard Drinks/Week Comments Yes 2 (1 standard drink = 0.6 oz pur e alcohol) [facility] Utilities Answer Date Recorded In the past 12 months has [facility] [employer], oil, or water [employer] threatened to shut off services in your [...] How often do you attend chur or orthodox services? More than 4 times per [...] and heating? Not hard at all 11/22/2021 [facility] - Occupational [...] living? 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 [address] [place] [phone] 08/24/2024 8:30 AM CDT Appointment Department of Cardiovascular Diseases in [place], [place] [address] [place] [phone] Ghada Perdomo APRN, C.N.P., M.S.N. [address] [place] [phone] 08/24/2024 9:20 AM CDT Appointment Department of Cardiovascular Diseases in [place], [place] [address] [place] [phone] Ghada Perdomo APRN, C.N.P., M.S.N. [address] [place] [phone] 08/24/2024 10:00 AM CDT Appointment Department of Laboratory Medicine and Pathology, [facility] in [place], [place] [address] [place] [phone] Ghada Perdomo APRN, C.N.P., M.S.N. [address] [place] [phone] 08/24/2024 10:30 AM CDT Office Visit Division of Rheumatology in [place], [place] [address] [place] [phone] Neena Espinoza APRN, C.N.P., D.N.P. [address] [place] [phone] 08/24/2024 12:00 PM CDT Appointment Department of Cardiovascular Diseases in [place], [place] [address] [place] [phone] Ghada Perdomo APRN, C.N.P., M.S.N. [address] [place] [phone] 08/24/2024 2:30 PM CDT Appointment Department of Radiology, [facility], in [place], [place] [address] [place] [address] Ghada Perdomo APRN, Amos., M.S.N. [address] [place] [phone] 08/25/2024 2:00 PM CDT Office Visit Department of Cardiovascular Medicine in [place], [place] [address] [place] [phone] Eliu Javier M.D. [address] [place] [phone] documented as of this encounter Visit Diagnoses Not on filedocumented in this encounter Additional Health Concerns Infection Onset Date Last Indicated Resolved Time Protective Environment 07/31/2023 07/31/2023 documented as of this encounter Care Teams Oil Expeller Relationship Specialty Start Date End Date Elsewhere, Pcp PCP - General Internal Medicine 08/16/23 documented as of this encounter
--- OUTSIDE RECORDS SUMMARY | 2024-06-04 08:21 | XMS_ITS | Clinical Summary ---
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 45 g 2 06/05/19 24 Active folic acid 1 mg tablet Take 1 mg by mouth once daily. Active calcium carbonate (Calcium 500) 500 mg calcium (1,250 mg) chewable tablet Chew 1,250 mg by mouth once daily. Active cholecalciferol (Vitamin D-3) 400 unit tablet Take 800 units by mouth once daily. Active QUEtiapine (SEROQUEL) 25 mg tabletIndicatio ns:Anxiety Take 1 Tablet (25 mg) by mouth at bedtime if needed for Agitation or Hallucinations (sleep). 07/09/19 24 Active metoprolol succinate (TOPROL XL) 50 mg sustained-relea se tabletIndicatio ns:Ventricular trigeminy Take 1 Tablet (50 mg) by mouth two times daily. 180 Tablet 07/29/19 24 Active potassium chloride (KLOR-CON M20) 20 mEq extended-releas e tablet (part/cryst)Ind ications:Hypoka lemia Take 1 Tablet (20 mEq) by mouth once daily. 100 Tablet 3 08/12/19 24 Active nortriptyline (PAMELOR) 10 mg capsule Take 20 mg by mouth at bedtime. 09/30/19 22 Active NebulizerIndica tions:SOB (shortness of breath) Nebulizer, neb kit, neb cup and mask. Medication: albuterol. For home use. Length of need for Medicare patients: 99 1 Each 12/31/19 24 Active albuterol-iprat ropium (DUONEB) (2.5-0.5 mg) in 3 mL NEBULIZATION solutionIndicat ions:Acute cough,SOB (shortness of breath) Inhale 3 mL via a nebulizer every 6 hours if needed for Shortness Of Breath. 15 mL 3 12/31/19 24 Active methotrexate (RHEUMATREX) 2.5 mg tablet Take 20 mg by mouth once weekly. 03/25/19 25 Active methotrexate sodium/PF (methotrexate, preservative free,) 25 mg/mL soln Inject As Directed once weekly. 0.4 ml (10mg) SC Q week x 14 days, 0.6 ml (15mg) SC Q week x 14 days, then 0.8 ml (20 mg) q week 025 Discontinu ed(*Med complete/R egimen complete/L evel of care change) azithromycin (ZITHROMAX) 500 mg tabletIndicatio ns:Travel advice encounter Take 1 Tablet (500 mg) by mouth every 24 hours for 3 days. 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 Plan: Pap/HPV due 04/2026 Ventricular trigeminy Mitral valve regurgitation Depression Anxiety Resolved Problems Problem Noted Date Diagnosed Date Resolved Date Right lower lobe lung mass 08/16/2023 0 05/07/2024 Overview (08/16/2023): Lungs: There is a spiculated mass measuring 3.3 x 2.5 centimeters on the right lower lobe, no prior examination available for comparison. Scattered areas of atelectasis and scarring. No consolidation. No pneuImpression: Supraventricular tachycardia 05/28/2022 06/17/2023 Encounters Date Type Department Care Team Description 05/30/2024 Travel 05/07/2024 8:45 AM CDT Office Visit [facility] [address] [place], [place] [phone] Lavern Beavers MD Medication Management (medications changed); Weight (gaining, ); Travel (05/20 [facility] /) 05/06/2024 Travel 05/04/[address] [facility] [address] [place] [address] Jeff Morales MD <No scans attached> 05/03/2024 Travel from Last 3 Months Immunizations Immunization Administration Dates Next Due COVID-19 VACCINE SPIKEVAX (M ODERNA 50MCG/0.5ML) 12YO+ PFS 05/07/2024,06/17/2023,12/25/2022 Influenza, CCIIV3 (Age >=6 MO) (Egg Free) 2023 Influenza, IIV4 12/25/2022,12/31/2021,04/21/2020 Pneumococcal Conj 20-valent (Prevnar 20) 024 RSV, Bivalent Vaccine Recons tituted (Abrysvo 120MCG/0.5mL) 11/07/2023 Tdap 08/15/2022,09/02/2013 Zoster (Shingrix-RZV, recombinant) 05/07/2024, Family History Medical History Relation Name Comments Aortic aneurysm Father Ramiro Arrhythmia Father Ramiro had an ablation Coronary artery disease Father Ramiro Hyperlipidemia Father Ramiro Hypertension Father Ramiro Kidney disease Father Ramiro was born w/on ly 1 kidney Ulcerative colitis Father Ramiro Atrial fibrillation Mother Joss Cancer-ovarian Mother Joss Hyperlipidemia Mother Joss Hypertension Mother Joss Hypothyroidism Mother Joss Cancer-colon Other paternal 1st co usin Cancer-breast Paternal Grandmother Ulcerative colitis Paternal Uncle Relation Name Status Comments Father Ramiro Mother Joss Other Paternal Grandmother Paternal Uncle Social History [...] 0 06/17/2023 Social Connections Answer Date Recorded Do you often feel lonely or isolated from those around you? 0 07/08/2023 Financial Resource Strain Answer Date R ecorded Difficulty of Paying Living Expenses 3 06/17/2023 Difficulty of Paying Living Expenses Not on file 06/17/2023 Food Insecurity Answer Date Recorded Do you worry your food will run out before you are able to buy more? 1 07/08/2023 Transportation Needs Answer Date Record ed Does lack of transportation keep you from medica l appointments? 1 07/08/2023 Does lack of transportation keep you from work, meetings or getting things that you need? 1 07/08/2023 Housing Stability Answer Date Recorded What is your housing situation today? 1 07/08/2023 Interpersonal Safety Answer Date Record ed Are you being hit, kicked, p ushed or yelled at (see row info)? No 07/08/2023 Interpersonal Safety Abuse 12 - 18 Not on file 07/08/2023 Interpersonal Safety Ambulatory Vulnerability No t on file 07/08/2023 Utilities Answer Date Recorded Do you have trouble paying f or utilities (for example, heat, electricity, water, phone)? 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 Gender Identity Not on file Sexual Orientation Not on file Travel History Travel Start Travel End [place] 05/20/2024 05/27/2024 Obstetrics History Last Filed Vital Signs Vital Sign Reading Time Taken Comments Blood Pressure 104/68 05/07/2024 8:43 AM CDT Pulse 77 05/07/2024 8:43 AM CDT Temperature 36.8 C (98.2 F) 01/02/2024 11:25 AM CONVERTING TECHNICIAN Respiratory Rate 18 08/16/2023 10:2 3 AM CDT Oxygen Saturation 98% 05/07/2024 8:43 AM CDT Inhaled Oxygen Concentration - - Weight 104.7 kg (230 lb 12.8 oz) 05/07/2024 8:43 AM CDT Height 172.7 cm (5' 8) 12/31/2023 8:21 AM CONVERTING TECHNICIAN Body Mass Index 35.09 12/31/2023 8:21 AM CONVERTING TECHNICIAN Plan of Treatment Upcoming Encounters Date Type Department Care Team (Late st Contact Info) Description 06/16/2024 8:30 AM CDT Office Visit [facility] [address] [address] Charisse Cabrera MD [address] [address] 06/17/2024 4:00 PM CDT Ancillary Procedure [facility] [address] [place] [address] 08/03/2024 1:00 PM CDT Office Visit [facility] [address] [place] [phone] Jeff Morales MD [address] [place] [address] Health Maintenance Due Date Last Done Comments HIV for age 15-65 1978 Depression screening for age 12+ 06/16/2024 06/17/19 24, 06/17/2023 COVID-19 vaccine series ( season) 2024 05/07/2024, 11/07/2023, 06/17/2023, Additional history exists Colonoscopy through age 75 10/26/202410/26 (Completed outside of [facility]) Mammogram for age 45-75 11/03/2024 11/04/19 24, 06/18/2022, 08/10/2020 (Completed outside of [facility]) BMI (ht and wt on same day) for age 18+ 12/30/2024 12/31/2023, 08/16/2023, 06/17/2023, Additional history exists Pap test for age 21-65 05/22/2026 05/22/2021, 2021 Lipids for age 45-75 05/29/2027 05/28/2022, 05/23/19 Tetanus booster 08/15/2032 08/15/2022, 09/02/2013 Hepatitis C screening for ag e 18-79 Completed 05/22/2021 Tdap Completed 08/15/2022, 09/02/2013 Pneumococcal series for age 50+ Completed Influenza Vaccine Completed 11/07/2023, , 12/31/2021, Additional history exists RSV vaccine for adults or Completed 11/07/2023 Zoster (shingles) series for age 50+ Completed 05/07/2024, 06/17/2023 Procedures Procedure Name Priority Date/Time Associated Diagnosis Comments RUBEOLA IMMUNE STATUS Routine 05/07/2024 9:57 AM CDT Immunosuppression (HC) Immunity status testing ANTI HAV TOTAL Routine 05/07/2024 9:57 AM CDT Immunosuppression (HC) Immunity status testing XR MAMMO GHAZALA BILAT SCREEN Routine 11/04/2023 4:48 PM CDT Visit for screening mammogram LC LIPID PANEL AND CHOL/HDL RATIO Routine 05/28/2022 10:50 AM CDT Screening cholesterol level ANTI HCV Routine 05/22/2021 2:25 PM CDT Need for hepatitis C screening test HPV HIGH RISK Routine 05/22/2021 2:02 PM CDT Screening for cervical cancer from Last 3 Months or Most Recently Relevant to Health Maintenance Results * RUBEOLA IMMUNE STATUS (05/07/2024 9:57 AM CDT) MEASLES AB (IGG), IMMUNE STATUS 44.60 AU/mL [employer] Comment: AU/mL Interpretation ----- <13.50 Not consistent with immunity 13.50-16.49 Equivocal >16.49 Consistent with immunity The presence of measles IgG suggests immunization or past or current infection with measles virus. For additional information, please refer to http://[employer]/faq/WHN273 (This link is being provided for informational/ educational purposes only.) Blood BLOOD SPECIMEN / Unknown 05/07/2024 9:57 AM CDT 05/07/2024 9:58 AM CDT us Lavern Beavers MD LABORATORY Final Resul t Performing Organization Address [facility] Phone Number [employer] [address] [address], [facility] [address] [place] [address] * (ABNORMAL) ANTI HAV TOTAL [86959.0] - Hepatitis A Immunity (05/07/2024 9:57 AM CDT) HEPATITIS A AB, TOTAL REACTIVE(A ) NON-REACTI VE [employer] Comment: For additional information, please refer to http://[employer]ia[employer]ai/faq/ZXR509 (This link is being provided for informational/ educational purposes only.) Blood BLOOD SPECIMEN / Unknown 05/07/2024 9:57 AM CDT 05/07/2024 9:58 AM CDT us Lavern Beavers MD SEND OUTS Final Resul t Performing Organization Address [facility]/ZIP Co de Phone Number [employer] [facility] [address] [place] [address], [place] [phone] [facility] [address] [place] [address] * XR MAMMO GHAZALA BILAT SCREEN (11/04/2023 4:48 PM CDT) Anatomical Region Laterality Modality BREASTS, Breast Left, Breast Right Bilateral Mammography Impressions 11/08/2023 3:07 PM CDT There is no radiographic evidence for malignancy. Recommend annual mammograms. MAMMOGRAM ASSESSMENT: ACR 1 Negative PATIENTS: You will also receive a letter with your examination results in an easy to read format. If you have questions about your results, please contact your referring provider. Narrative 11/08/2023 3:07 PM CDT For Patients: As a result of the Century Cures Act, medical imaging exams and procedure reports are released immediately into your electronic medical record. You may view this report before your referring provider. If you have questions, please contact your health care provider. XR MAMMO GHAZALA BILAT SCREEN [[id number]] CLINICAL HISTORY: This is an asymptomatic 58 y.o. patient. INDICATION FOR EXAM: Mammogram Screening. TECHNIQUE: CC & MLO views were obtained. This study was evaluated with the assistance of Computer-Aided Detection. Breast Tomosynthesis was used in interpretation. COMPARISON FILM: Yes 06/18/22 [facility] FINDINGS: The breasts are heterogeneously dense, which may obscure small masses. There are no dominant masses, suspicious micro calcifications or areas of architectural distortion. us Lavern Beavers MD MAMMO Final Resul t * (ABNORMAL) LC LIPID PANEL AND CHOL/HDL RATIO (05/28/2022 10:50 AM CDT) Cholesterol, Total 194 100 - 199 mg/dL 05/30/2022 9:10 AM CDT [facility] Triglycerides 120 0 - 149 mg/dL 05/30/2022 9:10 AM CDT [facility] HDL Cholesterol 52 >39 mg/dL 9:10 AM CDT [facility] VLDL Cholesterol Chase 21 5 - 40 mg/dL 05/30/2022 9:10 AM T [facility] LDL Chol Calc ([facility]) 121(H) 0 - 99 mg/dL 05/30/2022 9:[address] [facility] T. Chol/HDL Ratio 3.7 0.0 - 4.4 ratio 05/30/2022 9:[address] [facility] Comment: T. Chol/HDL Ratio Men Women 1/2 Avg.Risk 3.4 3.3 Avg.Risk 5.0 4.4 2X Avg.Risk 9.6 7.1 3X Avg.Risk 23.4 11.0 Blood BLOOD SPECIMEN / Unknown Venipuncture / Unknown 05/28/2022 10:50 AM CDT 05/28/2022 10:[address] [facility] - 05/30/2022 9:10 AM CDT Performed at: [address] [place] [id number] Cotton Classer: Trell Calderon MD, Phone: [phone] Gayathri GREENE SEND OUTS Final R esult Performing Organization Address City/[facility]/ZIP Co de Phone Number [facility] [address] [place] [address], * ANTI HCV (05/22/2021 2:25 PM CDT) HEPATITIS C ANTIBODY Non-React milton Non-React milton 05/22/2021 11:[address] [facility] Comment:Antibodies to HCV no t detected; does not exclude the possibility of exposure to HCV. Blood BLOOD SPECIMEN / Unknown Venipuncture / Unknown 05/22/2021 2:25 PM CDT 05/22/2021 2:28 PM CDT Gayathri GREENE SEND OUTS Final R esult [facility] [address] [place] [phone], * HPV HIGH RISK (05/22/2021 2:02 PM CDT) TYPE 16 Negative Negative 05/24/2021 5:38 PM CDT [facility] TYPE 18 Negative Negative 05/24/2021 5:38 PM CDT [facility] TRA LABORATORY OTHER HIGH RISK TYPES Negative Negative 05/24/2021 5:38 PM CDT [facility] Other (Cervical) Non-Blood / Unknown 05/22/2021 2:02 PM CDT 05/23/2021 8:32 AM CDT Narrative [facility] - 05/24/2021 5:38 PM CDT HPV types 16, 18, 31, 33, 35, 39, 45, 51, 52, 56, 58, 59, 66 and 68 DNA were undetectable or below the pre-set threshold. Methodology: Coleen Abel 4800 HPV Test us Gayathri GREENE MICROBIOLOGY Final R esult [facility] [address] [place] [address], from Last 3 Months or Most Recently Relevant to Health Maintenance Insurance [facility] NON-DC-ITS Advance Directives Documents on File Type Date Recorded Patient Grinder Gear Expl anation POLST 07/19/2023 Healthcare Directive 02/20/2022 invalid , missing page 02/20/2022 * Full Code (Latest Code Status on File) Date Activated Date Inactivated Comments 06/29/2023 10:12 PM 07/09/2023 6:12 PM Question Answer Comments Code Status Discussion: Reviewed Preferences * Full Code Date Activated Date Inactivated Comments 02/21/2022 11:30 AM 02/22/2022 12:12 PM Question Answer Comments Code Status Discussion: Reviewed Preferences Care Teams Meat Sales And Storage Manager Relationship Specialty Start Date End Date Lavern Beavers MD [address] [place] [address] PCP - General Family Practice 06/17/23 Jeff Morales MD [address] [place] [address] Surgery - Urology 02/03/24
--- OUTSIDE RECORDS SUMMARY | 2024-06-04 08:21 | XMS_ITS | Clinical Summary ---
Author Organization [facility] Address [address] [place] [address] Care Team Providers Care Security Operations Specialist Name Role Phone Elsewhere, Pcp Primary Care Provider Unavailabl e Source Comments Patient records contain information from all sites at [facility]. For routine questions regarding patient records, call [phone] during business hours, M-F 8:00 AM - 5:00 PM Central Time. Record requests for emergency care only can be directed to [phone] at any time.[facility] Allergies Active Allergy Reactions Criticality Noted Date Comments Sulfa (Sulfonamide Antibiotics) Nausea And Vomiting 01/30/2021 Medications * This document contains information received from the source organization and may not represent a complete record from that organization. nortriptyline (PAMELOR) 10 mg capsule Take 20 mg by mouth at bedtime. 2 Active QUEtiapine (SEROquel) 25 mg tablet Take 25 mg by mouth at bedtime. 2 Active metroNIDAZOLE (METROCREAM) 0.75 % cream Apply 1 Application topically daily. 3 Active calcium carbonate 1,250 mg (500 mg calcium) chewable tablet Chew 1,250 mg daily with breakfast. Active cholecalciferol (Vitamin D3) 10 mcg (400 Unit) tablet Take 800 Units by mouth daily. Active nystatin (Mycostatin) 100,000 unit/mL suspension Take 5 mL by mouth as needed. 3 Active potassium chloride (Klor-Con M) 20 mEq ER tablet Take 1 tablet by mouth daily. 4 Active metoprolol succinate (Toprol XL) 50 mg 24 hr tablet Take 1 tablet (50 mg total) by mouth 2 (two) times a day. 180 tablet 3 4 08/21/19 25 Active famotidine (Pepcid) 40 mg tabletIndication s:Gastroesophage al Reflux Disease Without Esophagitis Take 1 tablet (40 mg total) by mouth 2 (two) times a day. 4 Active mometasone/formo terol (DULERA INHL) Inhale 1 Inhalation 2 (two) times a day. Active nebulizer accessories kit Nebulizer, neb kit, neb cup and mask. Medication: albuterol. For home use. Length of need for Medicare patients: 99 4 Active ipratropium-albu teroL (DuoNeb) 0.5-2.5 mg/3 mL nebulizer solution Inhale 3 mL every 6 (six) hours as needed. 4 Active folic acid 1 mg tabletIndication s:Sarcoid Myocarditis (HCC),Sarcoidosi s Take 2 tablets (2 mg total) by mouth daily. 180 tablet 1 5 Active methotrexate (TrexalL) 2.5 mg tabletIndication s:Sarcoid Myocarditis (HCC),Sarcoidosi s Take 8 tablets (20 mg total) by mouth once a week. 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 Creatinine with Estimated GFR 04/13/2024 11:07 AM SLURRY PLANT OPERATOR - 04/13/2024 11:59 PM SLURRY PLANT OPERATOR Hospital Encounter Department of Laboratory Medicine in [address] [phone] Neena Espinoza APRN, C.N.PSandie, D.N.P. Impairment Cognitive Mild; Sarcoid Myocarditis (HCC); Sarcoidosis Discharge Disposition: Home or Self Care 04/09/2024 Clinical Communication Department of Cardiovascular Medicine in [place], [place] [address] [place] [phone] Ghada Perdomo APRN, C.N.Rachana, M.S.N. Appt Request (SCHEDULE ICD LEAD ) 03/25/2024 9:30 AM SLURRY PLANT OPERATOR Office Visit Division of Rheumatology in [place], [place] [address] [place] [phone] Neena Espinoza APRN, C.N.PSandie, D.N.P. Sarcoid Myocarditis (HCC) (Primary Dx); Sarcoidosis; Monitoring For Therapeutic Drug Therapy 03/25/2024 8:00 AM SLURRY PLANT OPERATOR Office Visit Department of Cardiovascular Medicine in [place], [place] [address] [place] [phone] Ghada Perdomo APRN, C.N.PSandie, M.S.N. Sarcoid Myocarditis (HCC) (Primary Dx); Monitoring For Therapeutic Drug Therapy; Immunodeficiency Due To Drugs (HCC); Bundle Branch Block Left; Ectopy Ventricular; Arrhythmia Ventricular; Catheter Ablation For Conduction Pathway Status Post; Presence Of Automatic (Implantable) Cardiac Defibrillator With Synchronous Cardiac Pacemaker (ICD And AICD); Regurgitation Mitral; Impairment Cognitive Mild 03/24/2024 10:50 AM SLURRY PLANT OPERATOR - 03/24/2024 11:59 PM SLURRY PLANT OPERATOR Hospital Encounter Department of Radiology, [facility], in [place], [place] [address] [place] [phone] Ghada Perdomo APRN, C.N.P., M.S.N. Sarcoid Myocarditis (HCC) Discharge Disposition: Home or Self Care 03/24/2024 10:27 AM SLURRY PLANT OPERATOR - 03/24/2024 10:49 AM SLURRY PLANT OPERATOR Hospital Encounter Department of Cardiovascular Diseases in [address] [phone] Ghdaa Perdomo APRN, C.N.P., M.S.N. Sarcoid Myocarditis (HCC) Discharge Disposition: Home or Self Care 03/23/2024 11:54 AM SLURRY PLANT OPERATOR - 03/23/2024 11:59 PM SLURRY PLANT OPERATOR Hospital Encounter Department of Cardiovascular Diseases in [address] [phone] Ghada Perdomo APRN, C.N.P., M.S.N. Sarcoid Myocarditis (HCC) Discharge Disposition: Home or Self Care 03/23/2024 9:44 AM SLURRY PLANT OPERATOR - 03/23/2024 11:53 AM SLURRY PLANT OPERATOR Hospital Encounter Department of Cardiovascular Diseases in [address] [phone] Ghada Perdomo APRN, C.NJae., M.S.N. Sarcoid Myocarditis (HCC) Discharge Disposition: Home or Self Care 03/23/2024 9:27 AM SLURRY PLANT OPERATOR - 03/23/2024 9:43 AM SLURRY PLANT OPERATOR Hospital Encounter Department of Laboratory Medicine and Pathology, [facility] in [address] [phone] Ghada Perdomo APRN, C.N.PSandie, M.S.N. Sarcoid Myocarditis (HCC) Discharge Disposition: Home or Self Care 03/20/2024 12:30 PM SLURRY PLANT OPERATOR Clinical Communication Virtual Review in [address] [phone] 03/16/2024 1:27 PM SLURRY PLANT OPERATOR - 03/16/2024 11:59 PM SLURRY PLANT OPERATOR Hospital Encounter Department of Cardiovascular Diseases in [address] [phone] Rafael Stanton M.D. Discharge Disposition: Home or Self Care from Last 3 Months Immunizations Immunization Administration Dates Next Due PCV20 02/28/2023 RZV (SHINGRIX) 06/17/2023 Tdap 08/15/2022,09/02/2013 influenza vaccine quad (FLUZ ONE/FLUARIX) (6 months and older)(PF) 12/25/2022,12/31/2021,04/21/2020 Family History Medical History Relation Name Comments [...] drink = 0.6 oz pur e alcohol) [facility] [employer] Answer Date Recorded In the past 12 months has e [employer], gas, oil, or water [employer] threatened to shut off services in your [...] often do you attend chur ch or zoroastrian services? More than 4 times per year [...] and heating? Not hard at all 11/22/2021 [facility] - Occupational [...] your living situation today? I have a [facility] place to live 03/30/2023 Education Answer Date Recorded What is the highest level of school you have completed or the highest degree you have received? Master's degree (e.g., MA, MS, Arti, MEd, TURNING MACHINE OPERATOR, GALA) 11/22/2021 Comments Unknown Sex and Gender Information Value Date Recorded Sex Assigned at Female 11/22/2021 11:24 PM CDT Legal Sex Female 8:39 AM SLURRY PLANT OPERATOR Gender Identity Female 11/22/2021 11:24 PM CDT Sexual Orientation Lesbian or Alonso 11/22/2021 11 :24 PM CDT Last Filed Vital Signs Vital Sign Reading Time Taken Comments Blood Pressure 126/82 03/25/2024 7:50 AM SLURRY PLANT OPERATOR Pulse 84 03/25/2024 7:50 AM SLURRY PLANT OPERATOR Temperature 36.6 C (97.9 F) 10/23/2023 10:03 AM CDT Respiratory Rate - - Oxygen Saturation 97% 08/23/2023 1:25 PM CDT Inhaled Oxygen Concentration - - Weight 104 kg (228 lb 11.6 oz) 03/25/2024 7:50 A M SLURRY PLANT OPERATOR Height 170.6 cm (5' 7.17) 03/25/2024 7:50 AM CS T Body Mass Index 35.65 03/25/2024 7:50 AM SLURRY PLANT OPERATOR Plan of Treatment Upcoming Encounters Date Type Department Care Team (Latest Contact Info) Description 08/20/2024 10:30 AM CDT Clinical Communication Virtual Review in [place], [place] [address] [place] [phone] 08/24/2024 8:00 AM CDT Ancillary Procedure Department of Cardiovascular Medicine in [place], [place] [address] [place] [phone] Ghada Perdomo APRN, C.N.P., M.S.N. [address] [place] [phone] 08/24/2024 8:30 AM CDT Appointment Department of Cardiovascular Diseases in [place], [place] [address] [place] [phone] Ghada Perdomo APRN, C.N.PSandie, M.S.N. [address] [place] [phone] 08/24/2024 9:20 AM CDT Appointment Department of Cardiovascular Diseases in [place], [place] [address] [place] [phone] Ghada Perdomo APRN, Tyrone.N.P., M.S.N. [address] [place] [phone] 08/24/2024 10:00 AM CDT Appointment Department of Laboratory Medicine and Pathology, [facility], in [place], [place] [address] [place] [phone] Ghada Perdomo APRN, C.N.P., M.S.N. [address] [place] [phone] 08/24/2024 10:30 AM CDT Office Visit Division of Rheumatology in [place], [place] [address] [place] [phone] Neena Espinoza APRN, C.N.P., D.N.P. [address] [place] [phone] 08/24/2024 12:00 PM CDT Appointment Department of Cardiovascular Diseases in [place], [place] [address] [place] [phone] Ghada Perdomo APRN, Tyrone.N.P., M.S.N. [address] [place] [phone] 08/24/2024 2:30 PM CDT Appointment Department of Radiology, [facility], in [place], [place] [address] [place] [phone] Ghada Perdomo APRN, C.N.P., M.S.N. [address] [place] [phone] 08/25/2024 2:00 PM CDT Office Visit Department of Cardiovascular Medicine in [place], [place] [address] [place] [phone] Eliu Javier M.D. [address] [place] [phone] Health Maintenance Due Date Last Done Comments CT Colonography 1963 Cervical/Vaginal Cancer Screening 1965 Cologuard 1963 Colonoscopy 1963 Colorectal Cancer Screening 1963 FIT 1963 HIV Screening 1963 Zoster Vaccines (2 of 2) 08/12/2023 06/17/2023 Depression Screening (Annual PHQ-2) 02/26/2024 COVID-19 Vaccine (9 - Mixed Product risk season) 2024 11/07/2023, 06/17/2023, 12/25/2022, Additional history exists Mammogram 11/03/2024 11/04/2023, 10/2023, 06/18/2022, Additional history exists Fasting Glucose for Diabetes Screening 03/23/2027 03/23/2024, 11/27/2023, 08/20/2023, Additional history exists Lipid (Cholesterol) Screening 04/04/2028 04/04/2023, 05/28/2022, 05/22/2021 DTaP,Tdap,and Td Vaccines (3 - Td or Tdap) 08/15/2032 08/15/2022, 09/02/2013 Pneumococcal vaccine (50+ years) Completed 02/28/2023 Hepatitis B Screening Discontinued 06/12/2023 Influenza Vaccine Completed 11/07/2023, , 12/31/2021, Additional history exists RSV vaccine - (32-36 weeks) or 60+ years Completed 11/07/2023 HPV Vaccines Aged Out No longer eligi ble based on patient's age to complete this topic IPV Vaccines Aged Out No longer eligi ble based on patient's age to complete this topic Medical Devices Implanted Type Area Desk Attendant Device Identifier Shelf Expiration Date Model / Serial / Lot Medtronic 3830 Selectsecure Mri Surescan [id number] Implanted:10/2023 (Quantity not on file) Cardiac Lead Medtronic 3830 SELECTSECURE MRI SURESCAN / [id number] / Medtronic 3830 Selectsecure Mri Surescan [id number] Implanted:10/2023 (Quantity not on file) Cardiac Lead Medtronic 3830 SELECTSECURE MRI SURESCAN / [id number] / Medtronic 6935m Sprint Quattro Secure S Mri Surescan [id number] Implanted:10/2023 (Quantity not on file) Cardiac Lead Medtronic 6935M SPRINT QUATTRO SECURE S MRI SURESCAN / [id number] / Medtronic [id number] [place] Xt Hf Manager Internal-D Mri [id number] Implanted:10/2023 (Quantity not on file) Implant Cardiac Defibrillator Medtronic [id number] [place] XT HF SEAL SKINNER-D MRI / [id number] / Procedures Procedure Name Priority Date/Time Associated Diagnosis Comments CREATININE WITH EGFR, S/P Routine 04/13/2024 11:13 AM SLURRY PLANT OPERATOR Sarcoid Myocarditis (HCC) Sarcoidosis VITAMIN B12 ASSAY, S Routine 04/13/2024 11:13 AM SLURRY PLANT OPERATOR Impairment Cognitive Mild THYROID FUNCTION CASCADE, S Routine 04/13/2024 11:13 AM SLURRY PLANT OPERATOR Impairment Cognitive Mild PET CT CARDIAC SARCOID RAD - Routine (most inpatients and all outpatients) 03/24/2024 1:09 PM SLURRY PLANT OPERATOR Sarcoid Myocarditis (HCC) ICD BIVENTRICULAR INTERROGATION WITH PROGRAMMING Routine 03/24/2024 10:47 AM SLURRY PLANT OPERATOR Sarcoid Myocarditis (HCC) HOLTER MONITOR - IN CLINIC LIFE EDUCATOR Routine 03/24/2024 4:14 AM SLURRY PLANT OPERATOR Sarcoid Myocarditis (HCC) ECG Routine 03/23/2024 11:51 AM SLURRY PLANT OPERATOR Sarcoid Myocarditis (HCC) (TTE) 2D ECHO DOPPLER COLOR AND CONTRAST Routine 03/23/2024 11:26 AM SLURRY PLANT OPERATOR Sarcoid Myocarditis (HCC) NT-PRO B-TYPE NATRIURETIC PEPTIDE (BNP), S Routine 03/23/2024 9:39 AM SLURRY PLANT OPERATOR Sarcoid Myocarditis (HCC) TROPONIN T, 5TH GEN, P Routine 03/23/2024 9:39 AM SLURRY PLANT OPERATOR Sarcoid Myocarditis (HCC) CBC WITH DIFFERENTIAL, B Routine 03/23/2024 9:39 AM SLURRY PLANT OPERATOR Sarcoid Myocarditis (HCC) COMPREHENSIVE METABOLIC PANEL, S/P Routine 03/23/2024 9:39 AM SLURRY PLANT OPERATOR Sarcoid Myocarditis (HCC) C-REACTIVE PROTEIN, HIGH SENSITIVITY, S/P Routine 03/23/2024 9:39 AM SLURRY PLANT OPERATOR Sarcoid Myocarditis (HCC) INTERFACED REMOTE DEVICE CHECK Routine 03/16/2024 1:27 PM SLURRY PLANT OPERATOR HEPATITIS B SURFACE ANTIGEN Routine 06/12/2023 12:27 PM CDT Sarcoidosis Immunodeficiency Due To Drugs (HCC) LIPID PANEL, S Routine 04/04/2023 8:00 AM SLURRY PLANT OPERATOR Failure Heart (HCC) from Last 3 Months or Most Recently Relevant to Health Maintenance Results * Thyroid Function [place] (04/13/2024 11:13 AM SLURRY PLANT OPERATOR) TSH, Sensitive 3.6 0.3 - 4.2 mIU/L 04/13/2024 2:02 PM SLURRY PLANT OPERATOR OWAT Blood (Blood, Venous) 04/13/2024 11:13 AM SLURRY PLANT OPERATOR 04/13/2024 1:09 PM SLURRY PLANT OPERATOR us Tyrone Callahan APRN.N.Cheryl., M.S.N. LAB BLOO D ADD-ON Final Result Performing Organization Address [facility] Co de Phone Number [facility] [address] [place] [id number], [facility] OWAT [facility] [place] [address] [place] [address] * Vitamin B12 Assay (04/13/2024 11:13 AM SLURRY PLANT OPERATOR) Vitamin B12 Assay, S 282 232 - 1245 ng/L 04/13/2024 3:22 PM SLURRY PLANT OPERATOR AUST Comment: Biotin has been identified by the first breaker feeder as a potential interfering substance. Higher concentrations of biotin may be found in multivitamins, hair/nail supplements, and workout supplements. If the result does not match clinical observations, repeat testing after patient refrains from the use of supplements for at least 12 hours. Blood (Blood, Venous) 04/13/2024 11:13 AM SLURRY PLANT OPERATOR 04/13/2024 2:42 PM SLURRY PLANT OPERATOR us Tyrone Callahan APRN.N.P., M.S.N. LAB BLOO D ADD-ON Final Result Performing Organization Address [facility]/ZIP Co de Phone Number [facility] [address] [place] [address], [place] AUST [facility] [address] [place] [address] * Creatinine with Estimated GFR (04/13/2024 11:13 AM SLURRY PLANT OPERATOR) Creatinine 1.02 0.59 - 1.04 mg/dL 04/13/2024 2:44 PM SLURRY PLANT OPERATOR OWAT Estimated GFR (eGFR) 63 >=60 mL/min/BSA 04/13/2024 2:44 PM SLURRY PLANT OPERATOR OWAT Comment: Estimated GFR calculated using the 2020 CKD_EPI creatinine equation. Blood (Blood, Venous) 04/13/2024 11:13 AM SLURRY PLANT OPERATOR 04/13/2024 1:10 PM SLURRY PLANT OPERATOR us Neena Espinoza APRN, C.N.P., D.N.P. LAB BLOOD ADD -ON Final Result Performing Organization Address [facility] Co de Phone Number [facility] [address] [address], [place] OWAT [facility] [place] [address] [place] [address] * PET CT Cardiac Sarcoid (03/24/2024 1:09 PM SLURRY PLANT OPERATOR) 03/24/2024 10:5 0 AM SLURRY PLANT OPERATOR Narrative [facility] CV MERGE - 03/24/2024 3:01 PM SLURRY PLANT OPERATOR See PDF For Result Procedure Note Yuan Bro M.D., Ph.D. - 03/24/2024 See PDF For Result us Ghada Perdomo APRN, C.N.P., M.S.N. [facility] P ROCEDURES Final Result Performing Organization Address City/[facility]/ZIP Co de Phone Number CV MERGE NA * ICD BIVENTRICULAR INTERROGATION WITH PROGRAMMING (03/24/2024 10:47 AM SLURRY PLANT OPERATOR) Date Time Interrogation Session [id number] [facility] Implantable Pulse Generator Desk Attendant Medtronic [facility] Implantable Pulse Generator Type Cardiac Resynchronization Therapy - Defibrillator [facility] Implantable Pulse Generator Model [place] XT HF CRTD [id number] [facility] Implantable Pulse Generator Serial Number [id number] [facility] Implantable Pulse Generator Implant Date 20230704 [facility] Battery Voltage 3.020 [facility] Battery SENIOR QA AUTOMATION ENGINEER Trigger 2.800 [facility] Battery Status OK [facility] Capacitor Charge Time 3.600 [facility] Chin Statistic RA Percent Paced 46.59 [facility] Chin Statistic RV Percent Paced 0.39 [facility] SEAL SKINNER Statistic LV Percent Paced 99.11 [facility] SEAL SKINNER Statistic SEAL SKINNER Percent Paced 0.89 [facility] Atrial Tachy Statistic AT/AF [place] Percent 0.00 [facility] Lead Channel Sensing Intrinsic Amplitude 3.500 [facility] Lead Channel Setting Sensing Sensitivity 0.30 [facility] Lead Channel Impedance Value 437 [facility] Lead Channel Pacing Threshold Amplitude 0.750 [facility] Lead Channel Pacing Threshold Pulse Width 0.4 [facility] Lead Channel Setting Pacing Amplitude 1.500 [facility] Lead Channel Setting Pacing Pulse Width 0.4 [facility] Lead Channel Sensing Intrinsic Amplitude 17.800 [facility] Lead Channel Impedance Value 361 [facility] Lead Channel Pacing Threshold Amplitude 0.750 [facility] Lead Channel Pacing Threshold Pulse Width 0.4 [facility] Lead Channel Measurements Date and Time 20240324 [facility] Lead Channel Impedance Value 608 [facility] Lead Channel Pacing Threshold Amplitude 1.250 [facility] Lead Channel Pacing Threshold Pulse Width 0.4 [facility] Lead Channel Measurements Date and Time 20240324 [facility] Lead Channel Setting Pacing Amplitude 2.500 [facility] Lead Channel Setting Pacing Pulse Width 0.4 [facility] Chin Setting Mode (NBG Code) DDDR [facility] Ventricular chambers paced during SEAL SKINNER pacing. LV [facility] Chin Setting Lower Rate Limit 60 [facility] Chin Setting AT Mode Switch Rate 150 [facility] Chin Setting Maximum Tracking Rate 130 [facility] Chin Setting Maximum Sensor Rate 130 [facility] Chin Setting PAV Delay 280 [facility] Chin Setting JUVENCIO Delay 280 [facility] Therapy Statistic Recent Shocks Aborted 0 [facility] Therapy Statistic Recent ATP Delivered 0 [facility] Murj RV HV Impedance 71 [facility] Zone Setting Type Category VF F[facility] Murj Rate 1 188 [facility] Murj Therapies 2 x iATP, 40J, 40J, 40J, 40J, 40J, 40J [facility] Zone Setting Status On [facility] Murj Zone ID 0 [facility] Zone Setting Type Category FVT [facility] Murj Rate 1 250 [facility] Murj Therapies 5 x iATP, 40J, 40J, 40J, 40J, 40J [facility] Zone Setting Status VIA_VF [facility] Murj Zone ID 1 [facility] Zone Setting Type Category VT [facility] Zone Setting Status Off [facility] Murj Zone ID 2 [facility] Zone Setting Type Category VT Monitor F[facility] Murj Rate 1 150 [facility] Zone Setting Status Monitor [facility] Murj Zone ID 3 [facility] Implantable Lead Desk Attendant Medtronic [facility] Implantable Lead Model 3830 SelectSecure MRI SureScan [facility] Implantable Lead Location Right Atrium [facility] Implantable Lead Connection Status Connected [facility] Implantable Lead Serial Number [id number] [facility] Implantable Lead Implant Date 20230704 [facility] Implantable Lead Special Function Lead length: 59.00 cm [facility] Implantable Lead Desk Attendant Medtronic [facility] Implantable Lead Model 3830 SelectSecure MRI SureScan [facility] Implantable Lead Location Left Ventricle [facility] Implantable Lead Connection Status Connected [facility] Implantable Lead Serial Number [id number] [facility] Implantable Lead Implant Date 20230704 [facility] Implantable Lead Special Function Lead length: 69.00 cm [facility] Implantable Lead Desk Attendant Medtronic [facility] Implantable Lead Model 6935M Sprint Quattro Secure S MRI SureScan [facility] Implantable Lead Location Right Ventricle [facility] Implantable Lead Connection Status Connected [facility] Implantable Lead Serial Number [id number] [facility] Implantable Lead Implant Date 20230704 [facility] Implantable Lead Special Function Lead length: 62.00 cm [facility] Anatomical Region Laterality Modality Echocardiography 04/01/2024 9:05 AM SLURRY PLANT OPERATOR Impressions 04/01/2024 9:05 AM SLURRY PLANT OPERATOR Encounter Impression: Title: Normal In-Office: No Events * In-clinic device interrogation in conjunction with CVD Sarcoid appts * Normal Device Function * Alerts or events: None * Battery: OK, 10.42 yrs * Sensing, impedance and thresholds reviewed and tested * Presenting Rhythm: was AP/VS at 75 bpm * Underlying Rhythm: was NSR at 68 bpm * Heart Rate Histograms reviewed * Pacing and Detection Parameters were evaluated Plan: This patient underwent device interrogation. I agree that the device interrogation was medically indicated to provide appropriate care and continue routine device interrogations as indicated. Encounter Summary: This report includes 1 transmission that was received on 2024-03-24. Battery, lead impedance, sensing amplitude and pacing threshold data was reviewed. Narrative Procedure Note Joey Castaneda M.D. - 04/01/2024 IMPRESSION: Encounter Impression: Title: Normal In-Office: No Events * In-clinic device interrogation in conjunction with CVD Sarcoid appts * Normal Device Function * Alerts or events: None * Battery: OK, 10.42 yrs * Sensing, impedance and thresholds reviewed and tested * Presenting Rhythm: was AP/VS at 75 bpm * Underlying Rhythm: was NSR at 68 bpm * Heart Rate Histograms reviewed * Pacing and Detection Parameters were evaluated Plan: This patient underwent device interrogation. I agree that the deviceinterrogation was medically indicated to provide appropriate care andcontinue routine device interrogations as indicated. Encounter Summary: This report includes 1 transmission that was receivedon 2024-03-24. Battery, lead impedance, sensing amplitude and pacingthreshold data was reviewed. us Ghada Perdomo APRN, C.N.P., M.S.N. CV IMPLA NTABLE CARDIAC DEVICE Final Result * HOLTER MONITOR - IN CLINIC LIFE EDUCATOR (03/24/2024 4:14 AM SLURRY PLANT OPERATOR) Min Heart Rate 60 bpm INFOB IONIC MOME Max Heart Rate 116 bpm INFOB IONIC MOME Mean Heart Rate 70 bpm INFOBIONIC MOME VE Total Beats 1260 count INFOB IONIC MOME VE Percent Beats 1 percent INFOBIONIC MOME SVE Total Beats 356 count INFOBIONIC MOME SVE Percent Beats less than 1 percent INFOBIONIC MOME AF Count 0 count INFOBIONIC MOME AF Duration 0 duration INFOBION IC MOME AF [place] 0 percent INFOBIONIC MOME Symptom Count 0 count INFOBI ONIC MOME 03/23/2024 11:5 9 AM SLURRY PLANT OPERATOR Narrative INFOBIONIC MOME - 03/25/2024 8:10 AM SLURRY PLANT OPERATOR 1. The basic rhythm was demand atrial and ventricular paced with underlying sinus with a left bundle branch block. The total analyzed time was 21h 49m. The heart rate varied from 60 to 116 bpm. The average HR was 70 bpm. Device interrogation was noted during monitoring period. 2. Premature ventricular complexes were noted singly, in pairs, in bigeminy, in trigeminy, and in two 4 to 12 beat runs of accelerated idioventricular rhythm with a maximum rate of 89 bpm. There were 1,260 PVCs recorded with a PVC burden of 1%. NOTE: AIVR runs happened during device interrogation. 3. Premature supraventricular complexes were noted singly, in pairs, and in five 5 beat atrial runs with a maximum rate of 140 bpm. There were 356 PACs recorded with a PAC burden of less than 1%. 4. No symptomatic events were noted. Dog Show Judge: ARIANA Bell / ARIANA Koroma Procedure Note Nnamdi Florian M.D. - 03/25/2024 1. The basic rhythm was demand atrial and ventricular paced withunderlying sinus with a left bundle branch block. The total analyzed timewas 21h 49m. The heart rate varied from 60 to 116 bpm. The average HR was70 bpm. Device interrogation was noted during monitoring period. 2. Premature ventricular complexes were noted singly, in pairs, inbigeminy, in trigeminy, and in two 4 to 12 beat runs of acceleratedidioventricular rhythm with a maximum rate of 89 bpm. There were 1,260PVCs recorded with a PVC burden of 1%. NOTE: AIVR runs happened during device interrogation. 3. Premature supraventricular complexes were noted singly, in pairs, andin five 5 beat atrial runs with a maximum rate of 140 bpm. There were 356PACs recorded with a PAC burden of less than 1%. 4. No symptomatic events were noted. Dog Show Judge: ARIANA Bell / ARIANA Koroma Ghada Perdomo APRN, C.N.P., M.S.N. CV CARDI AC SERVICES PROCEDURES Final Result INFOBIONIC MOME NA * ECG 12 Lead (03/23/2024 11:51 AM SLURRY PLANT OPERATOR) Ventricular Rate ECG/Min 65 BPM MUSE [place] Interval 184 ms MUSE QRSD Interval 136 ms MUSE QT Interval 468 ms MUSE QTC Interval 486 ms MUSE P [place] 67 degrees MUSE R [place] -12 degrees MUSE T Wave [place] 98 degrees MUSE 03/23/2024 11:5 1 AM SLURRY PLANT OPERATOR 03/23/2024 11:54 AM SLURRY PLANT OPERATOR Impressions MUSE - 03/23/2024 11:55 AM SLURRY PLANT OPERATOR Atrial-paced rhythm Left bundle branch block with secondary ST-T abnormalities When compared with ECG of 27-Nov-2023 08:22, No significant change was found Reviewed by ARIANA Tenorio Narrative Procedure Note Bahman Jaimes Jr., M.D. - 03/23/2024 IMPRESSION: Atrial-paced rhythm Left bundle branch block with secondary ST-T abnormalities When compared with ECG of 27-Nov-2023 08:22, No significant change was found Reviewed by ARIANA Tenorio us Ghada Perdomo APRN C.N.P., M.S.N. ECG ORDE [facility] Final Result MUSE NA * (TTE) 2D ECHO DOPPLER COLOR AND CONTRAST (03/23/2024 11:26 AM SLURRY PLANT OPERATOR) [facility] Ejection Fraction 65 MC CV EIMS Sinus of Valsalva 41 MC CV EIMS Mid-Ascending Aorta 41 MC CV EIMS LV End-Diastolic Volume 158 MC CV EIMS LV End-Systolic Volume 55 MC CV EIMS MV E Velocity 0.8 MC CV EIMS MV A Velocity 1.1 MC CV EIMS MV E/A 0.73 MC CV EIMS MV e' Velocity Medial 0.07 MC CV EIMS MV e' Velocity Lateral 0.08 MC CV EIMS MV E/e' Medial 11.4 MC CV EIMS MV E/e' Lateral 10 MC CV EIMS Left ventricular stroke volume index 47 MC CV EIMS Cardiac Output 5.98 MC CV EIMS Cardiac Index 2.81 MC CV EIMS LV Global Longitudinal Strain -22 MC CV EIMS Tricuspid Annular S 0.13 MC CV EIMS RV Free Wall Strain -18 MC CV EIMS TR Vmax 2.75 MC CV EIMS RA Pressure 5 MC CV EIMS RV Systolic Pressure 35 MC CV EIMS AV mean gradient 4 MC CV EIMS Aortic valve area 3.09 MC CV EIMS Aortic Valve Dimensionless Index 0.63 MC CV EIMS MV mean gradient 1 MC CV EIMS LA Volume Index 53 MC CV EIMS Aortic Valve Systolic Peak Velocity 1.5 MC CV EIMS Anatomical Region Laterality Modality Echocardiography 03/23/2024 9:5 3 AM SLURRY PLANT OPERATOR Impressions 03/23/2024 12:00 PM SLURRY PLANT OPERATOR LEFT VENTRICLE:Borderline enlarged left ventricular chamber size. Normal left ventricular wall thickness. Calculated 2-D biplane volumetric left ventricular ejection fraction of 65% without the use of ultrasound enhancing agent. Strain imaging examination performed to assess left ventricular function. Global averaged left ventricular longitudinal peak systolic strain is normal at -22% (normal = more negative than -18%). No regional wall motion abnormalities. Abnormal ventricular septal motion due to conduction. Grade 1/3 left ventricular diastolic dysfunction, consistent with low to normal left ventricular filling pressure at rest. RIGHT VENTRICLE:Normal right ventricular chamber size. Normal right ventricular systolic function. Strain imaging examination performed to assess right ventricular function. Right ventricular strain assessment was performed but not reported based on analytics architect's judgment. Estimated right ventricular systolic pressure 35 mmHg (right atrial pressure of 5 mmHg). ATRIA:Severely enlarged left atrial size. Left atrial volume index 53 ml/m2. Normal right atrial size. CARDIAC VALVES:Trileaflet aortic valve. Sclerotic aortic valve. No aortic valve regurgitation. Thickened mitral valve. Calcification of the posterior mitral annulus, papillary muscle head and likely the basal posterior myocardium. Mitral valve diastolic mean Doppler gradient 1 mmHg (heart rate 60 BPM). Mild-moderate mitral valve regurgitation. Normal pulmonary valve. Normal pulmonary valve systolic velocities. Trivial pulmonary valve regurgitation. Normal tricuspid valve. Trivial tricuspid valve regurgitation. OTHER ECHO FINDINGS:Device lead (s) identified in right atrium and right ventricle. Normal inferior vena cava size with normal inspiratory collapse (>50%). Enlarged sinus of Valsalva diameter of 41 mm. Upper limit of normal of the sinus of Valsalva for age, sex and BSA is 39 mm. Enlarged mid ascending aorta diameter of 41 mm. Upper limit of normal of the mid ascending aorta, for age, sex and BSA is 39 mm. Abdominal aorta incompletely visualized. Normal abdominal aorta Doppler flow pattern. No atrial level shunt by color flow imaging. No intracardiac mass or thrombus, but the left atrial appendage cannot be visualized adequately with transthoracic echo to exclude thrombus in this location. No pericardial effusion. Attempts were made to optimize the echocardiographic images and two or more left ventricular segments were not visualized adequately to evaluate cardiac structure. The patient's current allergies and medications have been screened. Intravenous Definity ultrasound enhancement agent(s) administered to enhance endocardial border definition. Imaging enhancement agent administered per Echocardiography Contrast Administration Protocol Reference Document [id number] Rev 06/08/2021. Patient met an inclusion criterion and did not have contraindications in screening sections. For the complete report, see the Order-Level Documents. Narrative 03/23/2024 12:00 PM SLURRY PLANT OPERATOR For the complete report, see the Order-Level Documents. Hemodynamics Heart Rate: 60 BPM Blood Pressure: 133 / 81 mmHg ECG: Sinus rhythm Final Impressions 1. Borderline enlarged left ventricular chamber size, no regional wall motion abnormalities, calculated 2-D biplane volumetric ejection fraction of 65%, global averaged longitudinal peak systolic strain is normal at -22% (normal = more negative than -18%). 2. Grade 1/3 left ventricular diastolic dysfunction, consistent with low to normal left ventricular filling pressure at rest. 3. Normal right ventricular chamber size, normal systolic function, estimated right ventricular systolic pressure 35 mmHg (right atrial pressure of 5 mmHg). 4. Calcified posterior mitral annulus, posterolateral papillary muscle head and possibly basal posterior myocardium. Mild-moderate mitral regurgitation, central jet (see view 70). 5. Sclerotic aortic valve (trileaflet) without regurgitation. 6. Enlarged mid ascending aorta diameter of 41 mm, upper limit of normal for age, sex and BSA is 39 mm. 7. Enlarged sinus of Valsalva diameter of 41 mm, upper limit of normal for age, sex and BSA is 39 mm. 8. Compared to the report of 08/20/2023 no significant change has occurred. Side by side comparison of images performed. Procedure Note Prudencio Ojeda M.D., Ph.D. - 03/23/2024 For the complete report, see the Order-Level Documents. Hemodynamics Heart Rate: 60 BPM Blood Pressure: 133 / 81 mmHg ECG: Sinus rhythm Final Impressions 1. Borderline enlarged left ventricular chamber size, no regional wallmotion abnormalities, calculated 2-D biplane volumetric ejection fractionof 65%, global averaged longitudinal peak systolic strain is normal at-22% (normal = more negative than -18%). 2. Grade 1/3 left ventricular diastolic dysfunction, consistent with lowto normal left ventricular filling pressure at rest. 3. Normal right ventricular chamber size, normal systolic function,estimated right ventricular systolic pressure 35 mmHg (right atrialpressure of 5 mmHg). 4. Calcified posterior mitral annulus, posterolateral papillary musclehead and possibly basal posterior myocardium. Mild-moderate mitralregurgitation, central jet (see view 70). 5. Sclerotic aortic valve (trileaflet) without regurgitation. 6. Enlarged mid ascending aorta diameter of 41 mm, upper limit of normalfor age, sex and BSA is 39 mm. 7. Enlarged sinus of Valsalva diameter of 41 mm, upper limit of normal forage, sex and BSA is 39 mm. 8. Compared to the report of 08/20/2023 no significant change hasoccurred. Side by side comparison of images performed. Findings LEFT VENTRICLE:Borderline enlarged left ventricular chamber size. Normalleft ventricular wall thickness. Calculated 2-D biplane volumetric leftventricular ejection fraction of 65% without the use of ultrasoundenhancing agent. Strain imaging examination performed to assess leftventricular function. Global averaged left ventricular longitudinal peaksystolic strain is normal at -22% (normal = more negative than -18%). Noregional wall motion abnormalities. Abnormal ventricular septal motion dueto conduction. Grade 1/3 left ventricular diastolic dysfunction,consistent with low to normal left ventricular filling pressure at rest. RIGHT VENTRICLE:Normal right ventricular chamber size. Normal rightventricular systolic function. Strain imaging examination performed toassess right ventricular function. Right ventricular strain assessment wasperformed but not reported based on analytics architect's judgment. Estimatedright ventricular systolic pressure 35 mmHg (right atrial pressure of 5mmHg). ATRIA:Severely enlarged left atrial size. Left atrial volume index 53ml/m2. Normal right atrial size. CARDIAC VALVES:Trileaflet aortic valve. Sclerotic aortic valve. No aorticvalve regurgitation. Thickened mitral valve. Calcification of theposterior mitral annulus, papillary muscle head and likely the basalposterior myocardium. Mitral valve diastolic mean Doppler gradient 1 mmHg(heart rate 60 BPM). Mild-moderate mitral valve regurgitation. Normalpulmonary valve. Normal pulmonary valve systolic velocities. Trivialpulmonary valve regurgitation. Normal tricuspid valve. Trivial tricuspidvalve regurgitation. OTHER ECHO FINDINGS:Device lead (s) identified in right atrium and rightventricle. Normal inferior vena cava size with normal inspiratory collapse(>50%). Enlarged sinus of Valsalva diameter of 41 mm. Upper limit ofnormal of the sinus of Valsalva for age, sex and BSA is 39 mm. Enlargedmid ascending aorta diameter of 41 mm. Upper limit of normal of the midascending aorta, for age, sex and BSA is 39 mm. Abdominal aortaincompletely visualized. Normal abdominal aorta Doppler flow pattern. Noatrial level shunt by color flow imaging. No intracardiac mass orthrombus, but the left atrial appendage cannot be visualized adequatelywith transthoracic echo to exclude thrombus in this location. Nopericardial effusion. Attempts were made to optimize the echocardiographicimages and two or more left ventricular segments were not visualizedadequately to evaluate cardiac structure. The patient's current allergiesand medications have been screened. Intravenous Definity ultrasoundenhancement agent(s) administered to enhance endocardial borderdefinition. Imaging enhancement agent administered per EchocardiographyContrast Administration Protocol Reference Document [id number] Rev06/08/2021. Patient met an inclusion criterion and did not havecontraindications in screening sections. For the complete report, see the Order-Level Documents. Ghada Perdomo APRN C.N.P., M.S.N. CV ECHO PROCEDURES Final Result * (ABNORMAL) NT-Pro B-Type Natriuretic Peptide (BNP) (03/23/2024 9:39 AM SLURRY PLANT OPERATOR) NT-Pro BNP 344(H) <=226 pg/mL 03/23/2024 10:53 AM SLURRY PLANT OPERATOR DTL Comment: NT-proBNP values less than 300 [...] absence of renal failure. Blood (Blood, Venous) 03/23/2024 9:39 AM SLURRY PLANT OPERATOR 03/23/2024 10:19 AM SLURRY PLANT OPERATOR us Tyrone Callahan APRN.NSandiePSandie, M.S.N. LAB BLOO D ADD-ON Final Result [facility] [address] [place] [address], [facility] DTL [facility] [address] [place] [address] * (ABNORMAL) CBC with Differential, Blood (03/23/2024 9:39 AM SLURRY PLANT OPERATOR) Hemoglobin 11.9 11.6 - 15.0 g/dL 03/23/2024 10:33 AM SLURRY PLANT OPERATOR DTL Hematocrit 36.9 35.5 - 44.9 % 03/23/2024 10:33 AM SLURRY PLANT OPERATOR DTL Erythrocytes 4.19 3.92 - 5.13 x10(12)/L 03/23/2024 10:33 AM SLURRY PLANT OPERATOR DTL MCV 88.1 78.2 - 97.9 fL 03/23/2024 10:33 AM SLURRY PLANT OPERATOR DTL RBC Distrib Width 14.9 12.2 - 16.1 % 03/23/2024 10:33 AM SLURRY PLANT OPERATOR DTL Platelet Count 181 157 - 371 x10(9)/L 03/23/2024 10:33 AM SLURRY PLANT OPERATOR DTL Leukocytes 4.8 3.4 - 9.6 x10(9)/L 03/23/2024 10:33 AM SLURRY PLANT OPERATOR DTL Neutrophils 3.60 1.56 - 6.45 x10(9)/L 03/23/2024 10:33 AM SLURRY PLANT OPERATOR DHPM Lymphocytes 0.30(L) 0.95 - 3.07 x10(9)/L 03/23/2024 10:33 AM SLURRY PLANT OPERATOR DTL Monocytes 0.70 0.26 - 0.81 x10(9)/L 03/23/2024 10:33 AM SLURRY PLANT OPERATOR DTL Eosinophils 0.10 0.03 - 0.48 x10(9)/L 03/23/2024 10:33 AM SLURRY PLANT OPERATOR DTL Basophils 0.05 0.01 - 0.08 x10(9)/L 03/23/2024 10:33 AM SLURRY PLANT OPERATOR DTL Blood (Blood, Venous) 03/23/2024 9:39 AM SLURRY PLANT OPERATOR 03/23/2024 10:06 AM SLURRY PLANT OPERATOR us Yas Callahan APRNNJae., M.S.N. LAB BLOO D ADD-ON Final Result Performing Organization Address [facility]/ZIP Co de Phone Number [facility] [address] [place] [address], [facility] [address] [place] [address] * (ABNORMAL) C-Reactive Protein, High Sensitivity (03/23/2024 9:39 AM SLURRY PLANT OPERATOR) C-Reactive Protein, High Sens, S 4.6(H) <2.0 mg/L 03/23/2024 10:53 AM SLURRY PLANT OPERATOR DTL Comment: Elevated C-reactive protein (>=2.0 mg/L) is a risk factor for cardiovascular disease. Clinician-patient discussion of therapeutic strategy is warranted. Blood (Blood, Venous) 03/23/2024 9:39 AM SLURRY PLANT OPERATOR 03/23/2024 10:19 AM SLURRY PLANT OPERATOR us Tyrone Callahan APRN.N.P., M.S.N. LAB BLOO D ADD-ON Final Result Performing Organization Address City/[facility]/ZIP Co de Phone Number [facility] [address] [place] [address], [facility] [address] [place] [address] * (ABNORMAL) Troponin T, 5th Generation (03/23/2024 9:39 AM SLURRY PLANT OPERATOR) Troponin T, 5th gen 11(H) <=10 ng/L 03/23/2024 11:19 AM SLURRY PLANT OPERATOR DTL Blood (Blood, Venous) 03/23/2024 9:39 AM SLURRY PLANT OPERATOR 03/23/2024 10:19 AM SLURRY PLANT OPERATOR Yas Callahan APRNNSandiePSandie, M.S.N. LAB BLOO D ADD-ON Final Result [facility] [address] [place] [address], [facility] DTL [facility] [address] [place] [address] * (ABNORMAL) Comprehensive Metabolic Panel (03/23/2024 9:39 AM SLURRY PLANT OPERATOR) Pathologist [facility] Potassium, S 4.3 3.6 - 5.2 mmol/L 03/23/2024 10:53 AM SLURRY PLANT OPERATOR DTL Sodium, S 141 135 - 145 mmol/L 03/23/2024 10:53 AM SLURRY PLANT OPERATOR DTL Chloride, S 103 98 - 107 mmol/L 03/23/2024 10:53 AM SLURRY PLANT OPERATOR DTL Bicarbonate, S 26 22 - 29 mmol/L 03/23/2024 10:53 AM SLURRY PLANT OPERATOR DTL Anion Gap 12 7 - 15 03/23/2024 10:53 AM SLURRY PLANT OPERATOR DTL BUN (Blood Urea Nitrogen), S 17 6 - 21 mg/dL 03/23/2024 10:53 AM SLURRY PLANT OPERATOR DTL Creatinine 1.45(H) 0.59 - 1.04 mg/dL 03/23/2024 10:53 AM SLURRY PLANT OPERATOR DTL Estimated GFR (eGFR) 41(L) >=60 mL/min/BS A 03/23/2024 10:53 AM SLURRY PLANT OPERATOR DTL Comment: Estimated GFR calculated using the 2020 CKD_EPI creatinine equation. Calcium, Total, S 9.6 8.8 - 10.2 mg/dL 03/23/2024 10:53 AM SLURRY PLANT OPERATOR DTL Glucose, S 81 70 - 140 mg/dL 03/23/2024 10:53 AM SLURRY PLANT OPERATOR DTL Protein, Total, S 6.0(L) 6.3 - 7.9 g/dL 03/23/2024 10:53 AM SLURRY PLANT OPERATOR DTL Albumin, S 4.0 3.5 - 5.0 g/dL 03/23/2024 10:53 AM SLURRY PLANT OPERATOR DTL Aspartate Aminotransferase (AST), S 20 8 - 43 U/L 03/23/2024 10:53 AM SLURRY PLANT OPERATOR DTL Alkaline Phosphatase, S 86 35 - 104 U/L 03/23/2024 10:53 AM SLURRY PLANT OPERATOR DTL Alanine Aminotransferase (ALT), S 15 7 - 45 U/L 03/23/2024 10:53 AM SLURRY PLANT OPERATOR DTL Bilirubin, Total, S 1.0 0.0 - 1.2 mg/dL 03/23/2024 10:53 AM SLURRY PLANT OPERATOR DTL Blood (Blood, Venous) 03/23/2024 9:39 AM SLURRY PLANT OPERATOR 03/23/2024 10:19 AM SLURRY PLANT OPERATOR us Ghada Perdomo APRN, C.N.P., M.S.N. LAB BLOO D ADD-ON Final Result [facility] [address] [place] [address], [facility] [address] [place] [address] * CAR CARDIAC DEVICE INTERROGATION (03/16/2024 1:27 PM SLURRY PLANT OPERATOR) Date Time Interrogation Session [id number] [facility] Type Interrogation Session Remote [facility] Implantable Pulse Generator Desk Attendant Medtronic [facility] Implantable Pulse Generator Type Cardiac Resynchronization Therapy - Defibrillator [facility] Implantable Pulse Generator Model [id number] [facility] Implantable Pulse Generator Serial Number [id number] [facility] Implantable Pulse Generator Implant Date 20230704 [facility] Battery Remaining Longevity 121.0 mo [facility] Battery Voltage 3.000 [employer] LICENSE OF [facility] Battery SENIOR QA AUTOMATION ENGINEER Trigger 2.800 [facility] Capacitor Charge Time 3.600 [facility] Chin Statistic RV Percent Paced 0.00 [facility] SEAL SKINNER Statistic LV Percent Paced 0.37 [facility] SEAL SKINNER Statistic [place] Percent Paced 0.00 [facility] Atrial Tachy Statistic AT/AF [place] Percent 0.00 [facility] Lead Channel Sensing Intrinsic Amplitude 3.400 [facility] Lead Channel Setting Sensing Sensitivity 0.30 [facility] Lead Channel Impedance Value 399 [facility] Lead Channel Setting Pacing Amplitude 2.000 [facility] Lead Channel Setting Pacing Pulse Width 0.4 [facility] Lead Channel Sensing Intrinsic Amplitude 10.400 [facility] Lead Channel Setting Sensing Sensitivity 0.45 [facility] Lead Channel Impedance Value 285 [facility] Lead Channel Impedance Value 627 [facility] Lead Channel Pacing Threshold Amplitude 1.500 [facility] Lead Channel Pacing Threshold Pulse Width 0.4 [facility] Lead Channel Measurements Date and Time [id number] [facility] Lead Channel Setting Pacing Amplitude 2.500 [facility] Lead Channel Setting Pacing Pulse Width 0.4 [facility] Chin Setting Mode (NBG Code) DDDR [facility] Ventricular chambers paced during SEAL SKINNER pacing. LVOnly [facility] Chin Setting Lower Rate Limit 60 [facility] Chin Setting AT Mode Switch Rate 150 [facility] Chin Setting Maximum Tracking Rate 130 [facility] Chin Setting Maximum Sensor Rate 130 [facility] Chin Setting PAV Del[place] 280 [facility] Chin Setting JUVENCIO Delay 280 [facility] Therapy Statistic Recent Shocks Delivered 0 [facility] Therapy Statistic Recent Shocks Aborted 0 [facility] Therapy Statistic Recent ATP Delivered 0 [facility] Murj RV HV Impedance 71 [facility] Lead Channel Setting Sensing Polarity Bipolar [facility] Lead Channel Setting Sensing Polarity Bipolar [facility] Lead Channel Setting Pacing Polarity Bipolar [facility] Lead Channel Setting Pacing Polarity Bipolar [facility] Lead Channel Pacing Threshold Polarity Bipolar [facility] Zone Setting Type Category AT/AF [facility] Murj Rate 1 150 [facility] Murj Therapies Some Rx Off [facility] Zone Setting Status Monitor [facility] Murj Zone ID 2 [facility] Zone Setting Type Category VF [facility] Murj Rate 1 188 [facility] Murj Therapies ATP During Charging, 40.0Jx6 [facility] Zone Setting Status On [facility] Murj Zone ID 3 [facility] Zone Setting Type Category FVT [facility] Murj Rate 1 188 [facility] Murj Rate 2 250 [facility] Murj Therapies iATP(5), 40.0Jx4 [facility] Zone Setting Status VIA_VF [facility] Murj Zone ID 4 [facility] Zone Setting Type Category VT [facility] Zone Setting Status Off [facility] Murj Zone ID 5 [facility] Zone Setting Type Category VT [facility] Murj Rate 1 150 [facility] Murj Rate 2 167 [facility] Zone Setting Status ENABLED F[facility] Murj Zone ID 6 [facility] Implantable Lead Desk Attendant Medtronic [facility] Implantable Lead Model 3830 [employer] MRI SureScan [facility] Implantable Lead Location Right Atrium [facility] Implantable Lead Connection Status Connected [facility] Implantable Lead Serial Number [id number] [facility] Implantable Lead Implant Date [id number] [facility] SYSTEM Implantable Lead Special Function Lead length: 59.00 cm [facility] Implantable Lead Desk Attendant [employer] [facility] Implantable Lead Model 3830 SelectSecure MRI SureScan [facility] Implantable Lead Location Left Ventricle [facility] Implantable Lead Connection Status Connected [facility] Implantable Lead Serial Number [id number] [facility] Implantable Lead Implant Date 20230704 [facility] Implantable Lead Special Function Lead length: 69.00 cm [facility] Implantable Lead Desk Attendant [employer] [facility] Implantable Lead Model 6935M Sprint Quattro Secure S MRI SureScan [facility] Implantable Lead Location Right Ventricle [facility] Implantable Lead Connection Status Connected [facility] Implantable Lead Serial Number [id number] [facility] Implantable Lead Implant Date 20230704 [facility] Implantable Lead Special Function Lead length: 62.00 cm [facility] Anatomical Region Laterality Modality Other 03/25/2024 9:59 AM SLURRY PLANT OPERATOR Impressions 03/25/2024 9:59 AM SLURRY PLANT OPERATOR Encounter Impression: Title: Normal Remote: With Events * Normal Device Function * Events or Alerts: 1 * Battery: 10.08 yrs * Sensing, impedance and thresholds reviewed * Programmed parameters reviewed * Presenting rhythm: /VS at 73 bpm * Heart Rate Histograms reviewed - We are not tracking the BiVP% as intrinsic conduction is being promoted with this device Title: Tachycardia: SVT * Stored EGMs are consistent with or suggestive of Supraventricular Tachycardia * AT burden: 0% * Total number of events: 1 - The EGM appears to show an SVT at 182 bpm lasting about 9 seconds in length Plan: Routine remote follow up and as needed. This patient underwent device interrogation. I agree that the device interrogation was medically indicated to provide appropriate care and continue routine device interrogations as indicated. Encounter Summary: This report includes 1 transmission that was received on 2024-03-14. Battery was reviewed. Narrative Procedure Note Rafael Stanton M.D. - 03/25/2024 IMPRESSION: Encounter Impression: Title: Normal Remote: With Events * Normal Device Function * Events or Alerts: 1 * Battery: 10.08 yrs * Sensing, impedance and thresholds reviewed * Programmed parameters reviewed * Presenting rhythm: /VS at 73 bpm * Heart Rate Histograms reviewed - We are not tracking the BiVP% asintrinsic conduction is being promoted with this device Title: Tachycardia: SVT * Stored EGMs are consistent with or suggestive of SupraventricularTachycardia * AT burden: 0% * Total number of events: 1 - The EGM appears to show an SVT at 182 bpmlasting about 9 seconds in length Plan: Routine remote follow up and as needed. This patient underwent device interrogation. I agree that the deviceinterrogation was medically indicated to provide appropriate care andcontinue routine device interrogations as indicated. Encounter Summary: This report includes 1 transmission that was receivedon 2024-03-14. Battery was reviewed. Rafael Stanton M.D. CV IMPLANTABLE CARDIAC DEVICE Final Result * Hepatitis B Surface Antigen (06/12/2023 12:27 PM CDT) Pathologist [facility] HBs Antigen, S Negative Negative 06/14/2023 10:56 AM CDT [facility] Blood (Blood, Venous) 06/12/2023 12:27 PM CDT 06/12/2023 4:50 PM CDT Olivia Arreguin M.D. LAB MICROBIOLOGY - BLO OD ORDERABLES Final Result [facility] [address] [place] [address] [facility] [address] [place] [address] * (ABNORMAL) Lipid Panel (04/04/2023 8:00 AM SLURRY PLANT OPERATOR) Pathologist [facility] Triglycerides 144 mg/dL 04/04/2023 9:16 AM SLURRY PLANT OPERATOR DTL Comment: ----REFERENCE VALUE---- Normal: <150 mg/dL Borderline High: 150-199 mg/dL High: 200-499 mg/dL Very High: > or =500 mg/dL Cholesterol, Total 180 mg/dL 2023 9:16 AM SLURRY PLANT OPERATOR DTL Comment: ----REFERENCE VALUE---- Desirable: < 200 mg/dL Borderline High: 200 - 239 mg/dL High: > or = 240 mg/dL Cholesterol, LDL, Calculated 107 mg/dL 04/04/2023 9:16 AM SLURRY PLANT OPERATOR DTL Comment: ----REFERENCE VALUE---- Desirable: <100 mg/dL Above Desirable: 100-129 mg/dL Borderline High: 130-159 mg/dL High: 160-189 mg/dL Very High: >=190 mg/dL ----ADDITIONAL INFORMATION---- LDL cholesterol calculated using the Gardner/NIH equation. Cholesterol, HDL, S 48(L) >=50 mg/dL 04/04/2023 9:16 AM SLURRY PLANT OPERATOR DTL Cholesterol, Non-HDL, Calculated 132 mg/dL 04/04/2023 9:16 AM SLURRY PLANT OPERATOR DTL Comment: ----REFERENCE VALUE---- Desirable: <130 mg/dL Above Desirable: 130-159 mg/dL Borderline High: 160-189 mg/dL High: 190-219 mg/dL Very High: > or =220 mg/dL Fasting (8 HR or more) No 04/04/2023 8:41 AM SLURRY PLANT OPERATOR DTL Blood (Blood, Venous) 04/04/2023 8:00 AM SLURRY PLANT OPERATOR 04/04/2023 8:41 AM SLURRY PLANT OPERATOR Neisha Nolan APRN, C.N.P., M.S.N. LAB BLOOD ADD -ON Final Result [facility] [address] [place] [address], [facility] [address] [place] [address] from Last 3 Months or Most Recently Relevant to Health Maintenance Additional Health Concerns Infection Onset Date Last Indicated Protective Environment 07/31/2023 4 Insurance [facility] Care Teams Security Operations Specialist Relationship Specialty Start Date End Date Elsewhere, Pcp PCP - General Internal Medicine 08/16/23
--- OUTSIDE RECORDS SUMMARY | 2024-06-04 08:21 | XMS_ITS | Encounter Summary ---
Author Organization [facility] Address [address] [place] [id number] Care Team Providers Care Kennel Keeper Name Role Phone Elsewhere, Pcp Primary Care Provider Unavailabl e Reason for Visit * Reason Onset Date Comments Appt Request 04/09/2024 SCHEDULE ICD LIZETH D Encounter Details Date Type Department Care Team (Latest Contact Info) Description 04/09/2024 Clinical Communication Department of Cardiovascular Medicine in [place], [place] [address] [place] [phone] Ghada Perdomo APRN, C.N.P., M.S.N. [address] [place] [phone] Appt Request (SCHEDULE ICD LEAD ) Social History Tobacco Use Types Packs/Day Years Used Date Smoking Tobacco: Former Cigarettes 0.5 10 0 02/25/1994 - 02/26/2004 Passive Smoke Exposure: Past Smokeless Tobacco: Never Alcohol Use Standard Drinks/Week Comments Yes 2 (1 standard drink = 0.6 oz pur e alcohol) [facility] Utilities Answer Date Recorded In the past 12 months has [facility] [employer], gas, oil, or water [employer] threatened to shut off services in your [...] How often do you attend chur or pentecostalism services? More than 4 times per year 11/22/2021 Do you belong to any clubs o r organizations such as hinduism groups, unions, fraternal or athletic groups, or [...] and heating? 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 [address] [place] [phone] 08/24/2024 8:30 AM CDT Appointment Department of Cardiovascular Diseases in [place], [place] [address] [place] [phone] Ghada Perdomo APRN, C.N.P., M.S.N. [address] [place] [phone] 08/24/2024 9:20 AM CDT Appointment Department of Cardiovascular Diseases in [place], [place] [address] [place] [phone] Ghada Perdomo APRN, C.N.Cheryl., M.S.N. [address] [place] [phone] 08/24/2024 10:00 AM CDT Appointment Department of Laboratory Medicine and Pathology, [facility] in [place], [place] [address] [place] [phone] Ghada Perdomo APRN, C.N.PSandie, M.S.N. [address] [place] [phone] 08/24/2024 10:30 AM CDT Office Visit Division of Rheumatology in [place], [place] [address] [place] [phone] Neena Espinoza APRN, C.N.P., D.N.P. [address] [place] [phone] 08/24/2024 12:00 PM CDT Appointment Department of Cardiovascular Diseases in [place], [place] [address] [place] [phone] Ghada Perdomo APRN, C.N.P., M.S.N. [address] [place] [phone] 08/24/2024 2:30 PM CDT Appointment Department of Radiology, [facility], in [place], [place] [address] [place] [phone] Ghada Perdomo APRN, C.N.P., M.S.N. [address] [place] [phone] 08/25/2024 2:00 PM CDT Office Visit Department of Cardiovascular Medicine in [place], [place] [address] [place] [phone] Eliu Javier M.D. [address] [place] [phone] documented as of this encounter Visit Diagnoses Not on filedocumented in this encounter Additional Health Concerns Infection Onset Date Last Indicated Resolved Time Protective Environment 07/31/2023 07/31/2023 documented as of this encounter Care Teams Kennel Keeper Relationship Specialty Start Date End Date Elsewhere, Pcp PCP - General Internal Medicine 08/16/23 documented as of this encounter
--- NOTE | 2024-06-04 08:46 | ED_ITS ---
HPI - General Adult General Date Seen: 06/04/24 Chief complaint: Shortness of Breath/Dyspnea Stated complaint: has respiratory infection, low pulse ox Time Seen by Provider: 06/04/24 08:29 History of Present Illness HPI narrative: Patient is a 59-year-old woman with a history of sarcoidosis, maintained on methotrexate, cardiac arrest about a year ago secondary to V-tach with a defibrillator placed. She notes a couple days of illness with cough and shortness of breath. Last night she noted a fever. Cough is fairly dry. She denies chest pain. She has not had lower extremity swelling or pain. She did just return from a trip to [place], she says that her son got sick after they returned on the . She has had nausea but no vomiting. No diarrhea. She does feel like it has been difficult to stay hydrated. She says on her home pulse oximeter she was periodically seeing O2 sats of 78% which is low for her. She does note that her O2 sats typically run in the low 90s, 90% here does not seem concerning to her. She says she does not have home oxygen, but notes that if she had that she probably would not have come in. She does not smoke. Related Data Home Medications ?Medication ?Instructions ?Recorded ?Confirmed mometasone-formoterol HFA 50 mcg-5 2 inh inhalation BID 09/29/21 02/02/23 mcg/actuation aerosol inhaler (Dulera) nortriptyline 10 mg capsule 20 mg PO HS 09/29/21 02/02/23 quetiapine 25 mg tablet 25 mg PO HS 09/29/21 02/02/23 mycophenolate mofetil 250 mg 250 mg PO BID 01/14/23 02/02/23 capsule mycophenolate mofetil 500 mg tablet 1,000 mg PO BID 01/14/23 02/02/23 albuterol sulfate 90 mcg/actuation 2 inh inhalation Q4H PRN 02/02/23 02/02/23 aerosol inhaler dextromethorphan-guaifenesin 30 1 tab PO BID PRN 02/02/23 02/02/23 mg-600 mg tablet extended [id number] hr (Mucus DM) metronidazole 0.75 % topical cream 1 applic topical .1-2X/DAY 02/02/23 02/02/23 methotrexate sodium 2.5 mg tablet 20 mg PO 06/04/24 Previous Rx's ?Medication ?Instructions ?Recorded benzonatate 200 mg capsule 200 mg PO TID PRN cough #30 caps 01/29/23 codeine 10 mg-guaifenesin 100 mg/5 5 - 10 ml PO Q6H PRN cough #473 mL 01/29/23 mL oral liquid nystatin 100,000 unit/mL oral 5 ml PO QID 2 weeks #280 mL 02/03/23 suspension Allergies Allergy/AdvReac Type Severity Reaction Status Date / Time Sulfa (Sulfonamide Allergy Unknown Nausea,Vomi Verified 06/04/24 10:41 Antibiotics) ting Review of Systems Status of ROS: Reports: 10 or more systems reviewed and unremarkable except as noted in History and below PFSH COUNTS INCLUDE 234 BEDS AT THE [facility] Medical History Ventricular trigeminy ?I49.8 - Other specified cardiac arrhythmias (ICD-10) Mitral valve regurgitation ?I34.0 - Nonrheumatic mitral (valve) insufficiency (ICD-10) Depression ?F32.A - Depression, unspecified (ICD-10) Anxiety ?F41.9 - Anxiety disorder, unspecified (ICD-10) Sarcoidosis ?D86.9 - Sarcoidosis, unspecified (ICD-10) 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 - Immunodeficiency due to drugs (ICD-10) ?Z79.899 - Other halfway (current) drug therapy (ICD-10) Social History What is your current living situation?: I presently have a place to live Problems where you live: no known problems Problems where you live details: n/a In the past 12 months, utilities in danger of being shut off: no In past 12 months, lack of transportation kept you from medical appts, meetings, work, or getting things needed for daily living: no In the past 12 mos, have been you worried that your food would run out before you had money to buy more?: never true In the past 12 mos, the food you bought just didn't last and you didn't have money to buy more?: never true Highest level of school completed/degree received: Master's degree Smoking Status: Former smoker Do you use any of these nicotine containing products: None Nicotine containing products detail: half pack a day for 10 years Second hand tobacco smoke exposure: No How often do you have a drink containing alcohol: never How often do you have six or more drinks on one occasion: Never AUDIT-C Alcohol total score: 0 Non-prescribed substance use: denies use Caffeine: Yes (one 16 oz coke daily) How often does anyone, including family, friends and others, physically hurt you : never How often does anyone, including family, friends and others, insult or talk down to you: never How often does anyone, including family, friends and others, threaten you with harm: never How often does anyone, including family, friends and others, scream or curse at you: never service: Yes Exam Narrative: Exam Narrative: Vital signs reviewed In general, alert, nontoxic woman. No respiratory distress. Head: Normocephalic, atraumatic. Eyes: Sclera clear. Pupils equal and reactive. ENT: Mucous membranes moist. Neck: Supple without adenopathy. Heart: Regular rate and rhythm without murmur. Lungs: Clear. No increased work of breathing, crackles or wheezes. Abdomen: Soft, nontender to palpation. Extremities: Well perfused, pulses intact. No significant edema. Neurologic: Alert, conversant. Speech fluent, face symmetric. Moves all extremities equally. Skin: Warm, dry well perfused. Affect: Normal. Const: Vital Signs, click to edit/add: Vital Signs - 24 hr 06/04/24 08:33 06/04/24 09:21 06/04/24 09:30 Temperature 101.3 F H Pulse Rate 100 77 Pulse Rate [Pulse Oximeter] 87 Respiratory Rate 40 H Blood Pressure Blood Pressure [Ri ght Upper Arm] 124/76 Pulse Oximetry 90 88 Oxygen Delivery Me thod Room Air Oxygen Flow Rate 06/04/24 09:36 06/04/24 09:39 06/04/24 09:40 Temperature Pulse Rate Pulse Rate [Pulse Oximeter] Respiratory Rate 30 H Blood Pressure Blood Pressure [Ri ght Upper Arm] Pulse Oximetry 86 L 94 94 Oxygen Delivery Me thod Room Air Nasal Cannula Nasal Cannula Oxygen Flow Rate 1 1 06/04/24 09:45 06/04/24 09:55 06/04/24 10:00 Temperature Pulse Rate 77 79 Pulse Rate [Pulse Oximeter] Respiratory Rate 18 Blood Pressure Blood Pressure [Ri ght Upper Arm] Pulse Oximetry 92 90 93 Oxygen Delivery Me thod Nasal Cannula Oxygen Flow Rate 2 06/04/24 10:15 06/04/24 10:17 06/04/24 10:17 Temperature 99.9 F H Pulse Rate 86 80 Pulse Rate [Pulse Oximeter] Respiratory Rate 26 H Blood Pressure 125/62 Blood Pressure [Ri ght Upper Arm] Pulse Oximetry 95 94 Oxygen Delivery Me thod Oxygen Flow Rate 06/04/24 10:24 06/04/24 10:30 06/04/24 10:45 Temperature 99.9 F H Pulse Rate 82 87 Pulse Rate [Pulse Oximeter] Respiratory Rate Blood Pressure Blood Pressure [Ri ght Upper Arm] Pulse Oximetry 98 89 Oxygen Delivery Me thod Oxygen Flow Rate 06/04/24 11:01 06/04/24 11:15 06/04/24 11:30 Temperature Pulse Rate 86 79 76 Pulse Rate [Pulse Oximeter] Respiratory Rate Blood Pressure Blood Pressure [Ri ght Upper Arm] Pulse Oximetry 91 92 91 Oxygen Delivery Me thod Oxygen Flow Rate 06/04/24 11:45 06/04/24 12:00 06/04/24 12:15 Temperature Pulse Rate 71 72 73 Pulse Rate [Pulse Oximeter] Respiratory Rate Blood Pressure Blood Pressure [Ri ght Upper Arm] Pulse Oximetry 92 88 91 Oxygen Delivery Me thod Oxygen Flow Rate 06/04/24 12:30 Temperature Pulse Rate 73 Pulse Rate [Pulse Oximeter] Respiratory Rate Blood Pressure Blood Pressure [Ri ght Upper Arm] Pulse Oximetry 90 Oxygen Delivery Me thod Oxygen Flow Rate 2 Course Course ED Course: Patient presents with fever, shortness of breath, cough. Diagnostic considerations would include a viral process such as COVID or RSV, pneumonia, congestive heart failure, pulmonary embolism, anemia, dehydration, among others. Will obtain a chest x-ray to start, as well as some labs. Will ambulate with oximetry. She did okay ambulating with pulse oximetry, but her O2 sats at rest been sitting in the mid upper 80s. We did put her on a couple L of oxygen by nasal cannula. Laboratory evaluation is notable for a normal white blood cell counts, hemoglobin of 11.6, she has a left shift with 86% neutrophils. D-dimer was elevated at 1.9. CRP was 5.1, procalcitonin and BMP were unremarkable, BNP was mildly elevated at 980. For viral swab was negative. Point of care troponin was 0. Chest x-ray by my review did not show any consolidation, final radiology report reviewed. Given the elevated D-dimer I did elect to do a CT scan of the chest with contrast. I did not see evidence on personal review of pulmonary emboli, other lung findings more complex and a left this to the radiologist to read. Overall, they feel that much of her scan is consistent with her diagnosis of sarcoidosis, but she does have some ground-glass opacities that may indicate an inflammatory process or pulmonary edema. Clinically, I suspect that this is more inflammatory. Her preference would be to not come into the hospital, I think the issue is going to be oxygenation. We did give her neb without significant improvement in her not her oxygenation, I am going to give her little steroid. There are no beds available in hospital right now anyway, so discussed with her will have her here for just a little bit, see how her oxygenation does after steroids, and can revisit the question. She has been on home oxygen before in feel she would do well with that again, but discussed some not able to order that from the emergency department and she does not currently have oxygen at home. Bed is now available on the floor, she continues to require oxygen to keep her O2 sats above 90, so I recommended that she stay and she is agreeable to that. Discussed with Dr. Tarango, excepted to the hospitalist service. Vital Signs Vital signs: Initial Vital Signs Temperature 101.3 F H 06/04/24 08:33 Temperature Source Temporal Artery Scan 06/04/24 08:33 Pulse Rate 87 06/04/24 08:33 Respiratory Rate 40 H 06/04/24 08:33 Blood Pressure 124/76 06/04/24 08:33 Blood Pressure Mean 92 06/04/24 08:33 Blood Pressure Position Sitting 06/04/24 08:33 Pulse Oximetry 90 06/04/24 08:33 Oxygen Delivery Method Room Air 06/04/24 08:33 Vital Signs Temperature 101.3 F H 06/04/24 08:33 Pulse Rate 87 06/04/24 08:33 Respiratory Rate 40 H 06/04/24 08:33 Blood Pressure 124/76 06/04/24 08:33 Pulse Oximetry 90 06/04/24 08:33 Oxygen Delivery Method Room Air 06/04/24 08:33 Temperature 99.9 F H 06/04/24 10:24 Pulse Rate 73 06/04/24 12:30 Respiratory Rate 26 H 06/04/24 10:17 Blood Pressure 125/62 06/04/24 10:17 Pulse Oximetry 90 06/04/24 12:30 Oxygen Delivery Method Nasal Cannula 06/04/24 09:55 Oxygen Flow Rate 2 06/04/24 12:30 Medications Administered Medications: Discontinued Medications Generic Name Dose Route Start Last Admin Trade Name Armen PRN Reason Stop Dose Admin Acetaminophen 1,000 mg 06/04/24 09:19 06/04/24 09:35 Acetaminophen 500 Mg Tablet PO 06/04/24 09:20 1,000 mg ONCE ONE Administration Albuterol/Ipratropium 1 neb 06/04/24 09:59 06/04/24 10:19 Iprat-Albut 0.5-2.5 Mg/3 Ml Neb IH 06/04/24 10:00 1 neb ONCE ONE Administration Methylprednisolone Sodium Succinate 125 mg 06/04/24 10:37 06/04/24 10:45 Methylprednisolone Sod Succ 62.5 Mg/Ml (125) IVP 06/04/24 10:38 125 mg ONCE ONE Administration Medical Decision Making Lab Data Lab results reviewed: Yes I reviewed the patient's lab results Labs: Lab Results 06/04/24 06/04/24 06/04/24 Range/Units 08:30 08:45 09:11 WBC 4.82 (4.50-11.00) K/uL RBC 4.04 (4.00-5.20) m/uL Hgb 11.6 L (12.0-16.0) gm/dL Hct 35.1 (33.0-51.0) % MCV 87 (80-100) fL MCH 29 (26-34) pg MCHC 33 (32-36) gm/dL RDW Coeff of Cordelia 15.3 (11.5-15.5) % Plt Count 140 (140-440) K/uL Neut % (Auto) 86.4 H (42.0-72.0) % Lymph % (Auto) 3.3 L (20-44) % Young % (Auto) 8.3 (0.0-11.0) % Eos % (Auto) 0.8 (0.0-7.0) % Baso % (Auto) 0.6 (0.0-3.0) % Neut # (Auto) 4.20 (1.7-7.0) K/uL Lymph # (Auto) 0.20 L (0.90-2.90) K/uL Young # (Auto) 0.40 (0.00-0.90) K/UL Eos # (Auto) 0.04 (0.00-0.50) K/uL Baso # (Auto) 0.03 (0.00-0.30) K/uL Abs Immat Gran (auto) 0.03 (0.00-0.30) K/uL Imm/Tot Granulo (auto) 0.6 % D-Dimer Quant (PE/DVT) 1.92 H (0.00-0.50) ug/ml Sodium 135 (135-149) mmol/L Potassium 4.2 (3.6-5.1) mmol/L Chloride 98 (96-114) mmol/L Carbon Dioxide 29 (20-32) mmol/L Anion Gap 8 (7-15) mEq/L BUN 11 (7-30) mg/dL Creatinine 1.0 (0.5-1.5) mg/dL Estimated Creat Clear 61.74 Estimated GFR 64 ml/min Glucose 99 (60-115) mg/dL Lactate 0.9 (0.5-1.9) mmol/L Calcium 9.3 (8.4-10.6) mg/dL C-Reactive Protein 5.1 H (0.5-1.0) mg/dL NT-Pro-B Natriuret Pep 979 pg/mL Procalcitonin 0.16 (<0.50) ng/mL SARS-CoV-2 (PCR) Negative SARS-CoV-2 (Negative) Influenza Type A (PCR) Negative PCR FLU A (Negative) Influenza Type B (PCR) Negative PCR FLU B (Negative) RSV (PCR) Negative PCR RSV (Negative) POC Troponin I 0.00 L (0.01-0.04) ng/ml Imaging Data Chest x-ray: Attestation: I have reviewed the pertinent imaging results. Radiologist's impression: [address] [address] Diagnostic Imaging Report Patient: Nanci Rice MR#: [id number] : 1965 Acct:[id number] Loc: ED Service Date: 06/04/[address]: Ordering Physician: Zarina Damico M.D. Date of Service: 06/04/24 Procedure(s): XR chest 2V Accession Number(s): [id number] cc: Zarina Damico M.D.; Lavern Beavers M.D.~ For Patients: As a result of the Cures Act, medical imaging exams and procedure reports are released immediately into your electronic medical record. You may view this report before your referring provider. If you have questions, please contact your health care provider. INDICATION: Cough and shortness of breath COMPARISON: 02/01/2023, 01/14/2023 TECHNIQUE: PA and lateral 2 view chest. FINDINGS: Lung volumes are good. There are diffuse reticulonodular and interstitial opacities with a central perihilar predominance. No significant peribronchiolar thickening. Normal caliber of the pulmonary vascular markings. No focal consolidations. No pleural effusion. No pneumothorax. No pneumomediastinum. Heart size is upper limits of normal but similar to prior. Normal upper mediastinal contours. Similar contour of the left hilum. Left subclavian transvenous pacer and AICD leads are new compared to the previous exam but appear to be in good position in the right atrium and right ventricle. Bones: No acute findings. IMPRESSION: Interstitial opacities in a pattern usually seen with viral or atypical infection. Pulmonary vascular markings are normal and there is not any definitive pulmonary edema. Dictated by Reta Norton MD @ 06/04/2024 9:11:[address] scan - chest: Attestation: I have reviewed the pertinent imaging results. Radiologist's impression: atient: Nanci Rice MR#: [id number] : 1965 Acct:[id number] Loc: ED Service Date: 06/04/24 Attending : Ordering Physician: Zarina Damico M.D. Date of Service: 06/04/24 Procedure(s): CT angio chest PE protocol Accession Number(s): [id number] cc: Zarina Damico M.D.; Lavern Beavers M.D.~ For Patients: As a result of the Cures Act, medical imaging exams and procedure reports are released immediately into your electronic medical record. You may view this report before your referring provider. If you have questions, please contact your health care provider. INDICATION: Dyspnea and hypoxia. Elevated D-dimer. History of sarcoidosis. COMPARISON: None TECHNIQUE: : CT examination of the chest was performed with the uneventful intravenous administration of 95 cc of Isovue 370 while thin axial sections were obtained from above the apices of the lungs to the lung bases. The examination was timed as a pulmonary artery angiogram. Please note that all CT scans at this facility use dose modulation, iterative reconstruction, and/or weight-based dosing when appropriate to reduce radiation dose to as low as reasonably achievable. FINDINGS: : HEART and MEDIASTINUM: The heart size is top-normal. No significant pericardial fluid. Atherosclerotic vascular calcifications. Mediastinal and bilateral hilar lymph nodes that are calcified consistent with the history of sarcoidosis. PULMONARY ARTERIAL CIRCULATION: There is no visible intraluminal filling defect to suggest pulmonary embolus. LUNGS and PLEURAL SPACES: Abnormal lung findings primarily central and peribronchiolar extending into the upper lobes consistent with sarcoidosis. There are also patchy ground-glass opacities and some smooth thickening of the interlobular septa which is not generally considered a manifestation of sarcoidosis. The 2nd component could be due to a mild atypical inflammatory process or mild interstitial edema. No pleural effusion or pneumothorax. VISUALIZED UPPER ABDOMEN: Hepatic steatosis. Status post cholecystectomy. Limited visualized upper abdominal structures appear normal. OSSEOUS STRUCTURES: Age-appropriate appearance. No acute fracture or destructive process. TUBES and LINES: A pacer/ICD is normally located IMPRESSION: 1. There is no evidence of pulmonary embolus. 2. Mediastinal findings consistent with sarcoidosis. 3. There also lung findings consistent with sarcoidosis. However, there is also smooth thickening of the interlobular septa and patchy ground-glass. These 2 findings are generally not consistent with sarcoidosis and probably represents a separate process such as mild edema or an inflammatory process. Please note that all CT scans at this facility use dose modulation, iterative reconstruction, and/or weight-based dosing when appropriate to reduce radiation dose to as low as reasonably achievable. Dictated by Vidal Morales MD @ 06/04/2024 10:25:33 AM Discharge Plan Discharge Clinical Impression: Hypoxia, Sarcoidosis, Acute respiratory infection Patient Disposition: Admitted As Observation
[2024-06-04 09:13] LABS: PCR FLU A Negative PCR FLU A (Negative); PCR FLU B Negative PCR FLU B (Negative); SARS PCR* Negative SARS-CoV-2 (Negative)
[2024-06-04 09:16] LABS: Lactate Sepsis w/Reflex* 0.9 mmol/L (0.5-1.9)
[2024-06-04 09:19] LABS: Basophils Absolute Auto 0.03 K/uL (0.00-0.30); Basophils Percent Auto 0.6 % (0.0-3.0); Eosinophils Absolute Auto 0.04 K/uL (0.00-0.50); Eosinophils Percent Auto 0.8 % (0.0-7.0); Hematocrit 35.1 % (33.0-51.0); Hemoglobin* 11.6 gm/dL (12.0-16.0); Immature Granulocytes Abs Auto 0.03 K/uL (0.00-0.30); Immature Granulocytes Pct Auto 0.6 %; Lymphocytes Percent Auto 3.3 % (20-44); Mean Corpuscular HGB Conc 33 gm/dL (32-36); Mean Corpuscular Hemoglobin 29 pg (26-34); Mean Corpuscular Volume 87 fL (80-100); Monocytes Percent Auto 8.3 % (0.0-11.0); Neutrophils Percent Auto 86.4 % (42.0-72.0); Platelet Count* 140 K/uL (140-440); RDW Coefficient of Variation % 15.3 % (11.5-15.5); Red Blood Count 4.04 m/uL (4.00-5.20); White Blood Count* 4.82 K/uL (4.50-11.00)
--- OUTSIDE RECORDS SUMMARY | 2024-06-04 09:20 | XMS_ITS | Clinical Summary ---
Author Organization [facility] Address [address] [place] [address] Care Team Providers Care Engineer Exhauster Name Role Phone Lavern Beavers MD Primary Care Provider [phone] Jeff Morales MD Unavailable [phone] Allergies Active Allergy Reactions Criticality Noted Date [...] Travel 05/07/2024 8:45 AM CDT Office Visit [facility] [address], [place] [phone] Lavern Beavers MD Medication Management (medications changed); Weight (gaining, ); Travel (05/20 [facility] /) 05/06/2024 Travel 05/04/2024 Orders Only [facility] [address] [place] [address] Jeff Morales MD <No scans [...] on file Legal Sex Female 4:50 PM PAYROLL COORDINATOR Gender Identity Not on file Sexual Orientation Not on file Travel History Travel Start Travel End [place] 05/20/2024 05/27/2024 Obstetrics History Last Filed Vital Signs Vital Sign Reading Time Taken Comments Blood Pressure 104/68 05/07/2024 8:43 AM CDT Pulse 77 05/07/2024 8:43 AM CDT Temperature 36.8 C (98.2 F) 01/02/2024 11:25 AM PAYROLL COORDINATOR Respiratory Rate 18 08/16/2023 10:2 3 AM CDT Oxygen Saturation 98% 05/07/2024 8:43 AM CDT Inhaled Oxygen Concentration - - Weight 104.7 kg (230 lb 12.8 oz) 05/07/2024 8:43 AM CDT Height 172.7 cm (5' 8) 12/31/2023 8:21 AM PAYROLL COORDINATOR Body Mass Index 35.09 12/31/2023 8:21 AM PAYROLL COORDINATOR Plan of Treatment Upcoming Encounters Date Type Department Care Team (Late st Contact Info) Description 06/16/2024 8:30 AM CDT Office Visit [facility] [address] [address] Charisse Cabrera MD [address] [address] 06/17/2024 4:00 PM CDT Ancillary Procedure [facility] [address] [place] [address] 08/03/2024 1:00 PM CDT Office Visit [facility] [address] [place] [address] Jeff Morales MD [address] [place] [address] Health Maintenance Due Date Last Done Comments [...] MEASLES AB (IGG), IMMUNE STATUS 44.60 AU/mL [employer] Comment: AU/mL Interpretation ----- <13.50 Not consistent with immunity 13.50-16.49 Equivocal >16.49 Consistent with immunity The presence of measles IgG suggests immunization or past or current infection with measles virus. For additional information, please refer to http://Coupay.Feebbo/faq/SLY744 (This link is being provided for informational/ educational purposes only.) Blood BLOOD SPECIMEN / Unknown 05/07/2024 9:57 AM CDT 05/07/2024 9:58 AM CDT us Lavern Beavers MD LABORATORY Final Resul t Performing Organization Address [facility] de Phone Number [facility] [address] [phone], [employer] [address] [place] [address] * (ABNORMAL) ANTI HAV TOTAL [88650.0] - Hepatitis A Immunity (05/07/2024 9:57 AM CDT) HEPATITIS A AB, TOTAL REACTIVE(A ) NON-REACTI VE [employer] Comment: For additional information, please refer to http://Coupay.Peerio/faq/CLF015 (This link is being provided for informational/ educational purposes only.) Blood BLOOD SPECIMEN / Unknown 05/07/2024 9:57 AM CDT 05/07/2024 9:58 AM CDT us Lavern Beavers MD SEND OUTS Final Resul t Performing Organization Address [facility]/ZIP Co de Phone Number [facility] [address] [place] [address], [place] [phone] [employer] [address] [place] [address] * XR MAMMO GHAZALA BILAT SCREEN (11/04/2023 [...] care provider. XR MAMMO GHAZALA BILAT SCREEN [[id number]] CLINICAL HISTORY: This is an asymptomatic 58 y.o. patient. INDICATION FOR EXAM: Mammogram Screening. TECHNIQUE: CC & MLO views were obtained. This study was evaluated with the assistance of Computer-Aided Detection. Breast Tomosynthesis was used in interpretation. COMPARISON FILM: Yes 06/18/22 [facility] FINDINGS: The breasts are heterogeneously dense, which may obscure small masses. There are no dominant masses, suspicious micro calcifications or areas of architectural distortion. us Lavern Beavers MD MAMMO Final Resul t * (ABNORMAL) LC LIPID PANEL AND CHOL/HDL RATIO (05/28/2022 10:50 AM CDT) Cholesterol, Total 194 100 - 199 mg/dL 05/30/2022 9:10 AM CDT [facility] Triglycerides 120 0 - 149 mg/dL 05/30/2022 9:10 AM CDT [facility] HDL Cholesterol 52 >39 mg/dL 9:10 AM CDT [facility] VLDL Cholesterol Chase 21 5 - 40 mg/dL 05/30/2022 9:10 AM T [facility] LDL Chol Calc ([facility]) 121(H) 0 - 99 mg/dL 05/30/2022 9:10 AM CDT [facility] T. Chol/HDL Ratio 3.7 0.0 - 4.4 ratio 05/30/2022 9:10 AM CDT [facility] Comment: T. Chol/HDL Ratio Men Women 1/2 Avg.Risk 3.4 3.3 Avg.Risk 5.0 4.4 2X Avg.Risk 9.6 7.1 3X Avg.Risk 23.4 11.0 Blood BLOOD SPECIMEN / Unknown Venipuncture / Unknown 05/28/2022 10:50 AM CDT 05/28/2022 10:51 AM CDT Narrative [facility]) - 05/30/2022 9:10 AM CDT Performed at: [address] [place] [id number] Mental Health Orderly: Trell Calderon MD, Phone: [phone] Gayathri GREENE SEND OUTS Final R esult Performing Organization Address City/[facility]/ZIP Co de Phone Number [facility] ([facility]) [address] [place] [address], * ANTI HCV (05/22/2021 2:25 PM CDT) HEPATITIS C ANTIBODY Non-React milton Non-React milton 05/22/2021 11:58 PM CDT [facility] Comment:Antibodies to HCV no t detected; does not exclude the possibility of exposure to HCV. Blood BLOOD SPECIMEN / Unknown Venipuncture / Unknown 05/22/2021 2:25 PM CDT 05/22/2021 2:28 PM CDT Gayathri GREENE SEND OUTS Final R esult [facility] [address] [place] [phone], * HPV HIGH RISK (05/22/2021 2:02 PM CDT) TYPE 16 Negative Negative 05/24/2021 5:38 PM CDT [facility] TYPE 18 Negative Negative 05/24/2021 5:38 PM CDT [facility] TRA [facility] OTHER HIGH RISK TYPES Negative Negative 05/24/2021 5:38 PM CDT [facility] Other (Cervical) Non-Blood / Unknown 05/22/2021 2:02 PM CDT 05/23/2021 8:32 AM CDT Narrative [facility] - 05/24/2021 5:38 PM CDT HPV types 16, 18, 31, 33, 35, 39, 45, 51, 52, 56, 58, 59, 66 and 68 DNA were undetectable or below the pre-set threshold. Methodology: Coleen Abel 4800 HPV Test us Gayathri GREENE MICROBIOLOGY Final R esult [facility] [address] [place] [address], from Last 3 Months or Most Recently Relevant to Health Maintenance Insurance [facility] Advance Directives Documents on File Type Date Recorded Patient Pharm Tech Expl anation POLST 07/19/2023 Healthcare Directive 02/20/2022 invalid , missing page 02/20/2022 * Full Code (Latest Code Status on File) Date Activated Date Inactivated Comments 06/29/2023 10:12 PM 07/09/2023 6:12 PM Question Answer Comments Code Status Discussion: Reviewed Preferences * Full Code Date Activated Date Inactivated Comments 02/21/2022 11:30 AM 02/22/2022 12:12 PM Question Answer Comments Code Status Discussion: Reviewed Preferences Care Teams Engineer Exhauster Relationship Specialty Start Date End Date Lavern Beavers MD [address] [place] [address] PCP - General Family Practice 06/17/23 Jeff Morales MD [address] [place] [address] Surgery - Urology 02/03/24
--- OUTSIDE RECORDS SUMMARY | 2024-06-04 09:20 | XMS_ITS | Encounter Summary ---
Author Organization [facility] Address [address] [place] [address] Care Team Providers Care Patient Service Rep Name Role Phone Elsewhere, Pcp Primary Care Provider Unavailabl e Reason for Visit * Reason Onset Date Comments Appt Request 04/09/2024 SCHEDULE ICD LIZETH D Encounter Details Date Type Department Care Team (Latest Contact Info) Description 04/09/2024 Clinical Communication Department of Cardiovascular Medicine in [place], [place] [address] [place] [phone] Ghada Perdomo APRN, C.N.P., M.S.N. [address] [place] [phone] Appt Request (SCHEDULE ICD LEAD ) Social History Tobacco Use Types Packs/Day Years Used Date Smoking Tobacco: Former Cigarettes 0.5 10 0 02/25/1994 - 02/26/2004 Passive Smoke Exposure: Past Smokeless Tobacco: Never Alcohol Use Standard Drinks/Week Comments Yes 2 (1 standard drink = 0.6 oz pur e alcohol) [facility] Utilities Answer Date Recorded In the past 12 months has [facility] [employer], gas, oil, or water [employer] threatened to shut off services in your [...] at all 11/22/[address] [facility] [place] of Occupat ional Health - Occupational Stress [...] your living situation today? I have a [facility] place to live 03/30/2023 Education Answer Date Recorded What is the highest level of school you have completed or the highest degree you have received? 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 [address] [place] [phone] 08/24/2024 8:30 AM CDT Appointment Department of Cardiovascular Diseases in [place], [place] [address] [place] [address] Ghada Perdomo APRN, C.N.P., M.S.N. [address] [place] [phone] 08/24/2024 9:20 AM CDT Appointment Department of Cardiovascular Diseases in [place], [place] [address] [place] [phone] Ghada Perdomo APRN, C.N.Cheryl., M.S.N. [address] [place] [phone] 08/24/2024 10:00 AM CDT Appointment Department of Laboratory Medicine and Pathology, [facility] in [place], [place] [address] [place] [phone] Ghada Perdomo APRN, C.N.PSandie, M.S.N. [address] [place] [phone] 08/24/2024 10:30 AM CDT Office Visit Division of Rheumatology in [place], [place] [address] [place] [phone] Neena Espinoza APRN, C.N.P., D.N.P. [address] [place] [phone] 08/24/2024 12:00 PM CDT Appointment Department of Cardiovascular Diseases in [place], [place] [address] [place] [phone] Ghada Perdomo APRN, C.N.P., M.S.N. [address] [place] [phone] 08/24/2024 2:30 PM CDT Appointment Department of Radiology, [facility], in [place], [place] [address] [place] [phone] Ghada Perdomo APRN, C.N.P., M.S.N. [address] [place] [phone] 08/25/2024 2:00 PM CDT Office Visit Department of Cardiovascular Medicine in [place], [place] [address] [place] [phone] Eliu Javier M.D. [address] [place] [phone] documented as of this encounter Visit Diagnoses Not on filedocumented in this encounter Additional Health Concerns Infection Onset Date Last Indicated Resolved Time Protective Environment 07/31/2023 07/31/2023 documented as of this encounter Care Teams Patient Service Rep Relationship Specialty Start Date End Date Elsewhere, Pcp PCP - General Internal Medicine 08/16/23 documented as of this encounter
--- OUTSIDE RECORDS SUMMARY | 2024-06-04 09:20 | XMS_ITS | Clinical Summary ---
Author Organization [facility] Address [address] [place] [address] Care Team Providers Care Quantitative Analyst Name Role Phone Elsewhere, Pcp Primary Care Provider Unavailabl e Source Comments Patient records contain information from all sites at [facility]. For routine questions regarding patient records, call [phone] during business hours, M-F 8:00 AM - 5:00 PM Central Time. Record requests for emergency care only can be directed to [phone] at any time.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 Creatinine with Estimated GFR 04/13/2024 11:07 AM HVAC SHEET METAL INSTALLER - 04/13/2024 11:59 PM HVAC SHEET METAL INSTALLER Hospital Encounter Department of Laboratory Medicine in [address] [phone] Neena Espinoza APRN, C.N.PSandie, D.N.P. Impairment Cognitive Mild; Sarcoid Myocarditis (HCC); Sarcoidosis Discharge Disposition: Home or Self Care 04/09/2024 Clinical Communication Department of Cardiovascular Medicine in [place], [place] [address] [place] [phone] Ghada Perdomo APRN, C.N.Rachana, M.S.N. Appt Request (SCHEDULE ICD LEAD ) 03/25/2024 9:30 AM HVAC SHEET METAL INSTALLER Office Visit Division of Rheumatology in [place], [place] [address] [place] [phone] Neena Espinoza APRN, C.N.PSandie, D.N.P. Sarcoid Myocarditis (HCC) (Primary Dx); Sarcoidosis; Monitoring For Therapeutic Drug Therapy 03/25/2024 8:00 AM HVAC SHEET METAL INSTALLER Office Visit Department of Cardiovascular Medicine in [place], [place] [address] [place] [phone] Ghada Perdomo APRN, C.N.PSandie, M.S.N. Sarcoid Myocarditis (HCC) (Primary Dx); Monitoring For Therapeutic Drug Therapy; Immunodeficiency Due To Drugs (HCC); Bundle Branch Block Left; Ectopy Ventricular; Arrhythmia Ventricular; Catheter Ablation For Conduction Pathway Status Post; Presence Of Automatic (Implantable) Cardiac Defibrillator With Synchronous Cardiac Pacemaker (ICD And AICD); Regurgitation Mitral; Impairment Cognitive Mild 03/24/2024 10:50 AM HVAC SHEET METAL INSTALLER - 03/24/2024 11:59 PM HVAC SHEET METAL INSTALLER Hospital Encounter Department of Radiology, [facility], in [place], [place] [address] [place] [phone] Ghada Perdomo APRN, C.N.P., M.S.N. Sarcoid Myocarditis (HCC) Discharge Disposition: Home or Self Care 03/24/2024 10:27 AM HVAC SHEET METAL INSTALLER - 03/24/2024 10:49 AM HVAC SHEET METAL INSTALLER Hospital Encounter Department of Cardiovascular Diseases in [address] [phone] Ghada Perdomo APRN, C.N.P., M.S.N. Sarcoid Myocarditis (HCC) Discharge Disposition: Home or Self Care 03/23/2024 11:54 AM HVAC SHEET METAL INSTALLER - 03/23/2024 11:59 PM HVAC SHEET METAL INSTALLER Hospital Encounter Department of Cardiovascular Diseases in [address] [phone] Ghada Perdomo APRN, C.N.P., M.S.N. Sarcoid Myocarditis (HCC) Discharge Disposition: Home or Self Care 03/23/2024 9:44 AM HVAC SHEET METAL INSTALLER - 03/23/2024 11:53 AM HVAC SHEET METAL INSTALLER Hospital Encounter Department of Cardiovascular Diseases in [address] [phone] Ghada Perdomo APRN, C.NJae., M.S.N. Sarcoid Myocarditis (HCC) Discharge Disposition: Home or Self Care 03/23/2024 9:27 AM HVAC SHEET METAL INSTALLER - 03/23/2024 9:43 AM HVAC SHEET METAL INSTALLER Hospital Encounter Department of Laboratory Medicine and Pathology, [facility] in [address] [phone] Ghada Perdomo APRN, C.N.PSandie, M.S.N. Sarcoid Myocarditis (HCC) Discharge Disposition: Home or Self Care 03/20/2024 12:30 PM HVAC SHEET METAL INSTALLER Clinical Communication Virtual Review in [address] [phone] 03/16/2024 1:27 PM HVAC SHEET METAL INSTALLER - 03/16/2024 11:59 PM HVAC SHEET METAL INSTALLER Hospital Encounter Department of Cardiovascular Diseases in [address] [phone] Rafael Stanton M.D. Discharge Disposition: Home or [...] drink = 0.6 oz pur e alcohol) [facility] [employer] Answer Date Recorded In the past 12 months has e [employer], gas, oil, or water [employer] threatened to shut off services in your [...] often do you attend chur ch or episcopal services? More than 4 times per year 11/22/2021 Do you belong to any clubs o r organizations such as advent groups, unions, fraternal or athletic groups, or [...] your living situation today? [facility] place to live 03/30/2023 Education Answer Date Recorded What is the highest level of school you have completed or the highest degree you have received? Master's degree (e.g., MA, MS, Arti, MEd, SYSTEMS SUPPORT ENGINEER, GALA) 11/22/2021 Comments Unknown Sex and Gender Information Value Date Recorded Sex Assigned at Female 11/22/2021 11:24 PM CDT Legal Sex Female 8:39 AM HVAC SHEET METAL INSTALLER Gender Identity Female 11/22/2021 11:24 PM CDT Sexual Orientation Lesbian or Alonso 11/22/2021 11 :24 PM CDT Last Filed Vital Signs Vital Sign Reading Time Taken Comments Blood Pressure 126/82 03/25/2024 7:50 AM HVAC SHEET METAL INSTALLER Pulse 84 03/25/2024 7:50 AM HVAC SHEET METAL INSTALLER Temperature 36.6 C (97.9 F) 10/23/2023 10:03 AM CDT Respiratory Rate - - Oxygen Saturation 97% 08/23/2023 1:25 PM CDT Inhaled Oxygen Concentration - - Weight 104 kg (228 lb 11.6 oz) 03/25/2024 7:50 A M HVAC SHEET METAL INSTALLER Height 170.6 cm (5' 7.17) 03/25/2024 7:50 AM CS T Body Mass Index 35.65 03/25/2024 7:50 AM HVAC SHEET METAL INSTALLER Plan of Treatment Upcoming Encounters Date Type Department Care Team (Latest Contact Info) Description 08/20/2024 10:30 AM CDT Clinical Communication Virtual Review in [place], [place] 200 [place] [phone] 08/24/2024 8:00 AM CDT Ancillary Procedure Department of Cardiovascular Medicine in [place], [place] [address] [place] [phone] Ghada Perdomo APRN, C.N.P., M.S.N. [address] [place] [phone] 08/24/2024 8:30 AM CDT Appointment Department of Cardiovascular Diseases in [place], [place] [address] [place] [phone] Ghada Perdomo APRN, C.N.PSandie, M.S.N. [address] [place] [phone] 08/24/2024 9:20 AM CDT Appointment Department of Cardiovascular Diseases in [place], [place] [address] [place] [phone] Ghada Perdomo APRN, Tyrone.N.P., M.S.N. [address] [place] [phone] 08/24/2024 10:00 AM CDT Appointment Department of Laboratory Medicine and Pathology, [facility], in [place], [place] [address] [place] [phone] Ghada Perdomo APRN, C.N.P., M.S.N. [address] [place] [phone] 08/24/2024 10:30 AM CDT Office Visit Division of Rheumatology in [place], [place] [address] [place] [phone] Neena Espinoza APRN, C.N.P., D.N.P. [address] [place] [phone] 08/24/2024 12:00 PM CDT Appointment Department of Cardiovascular Diseases in [place], [place] [address] [place] [address] Ghada Perdomo APRN, Tyrone.N.P., M.S.N. [address] [place] [phone] 08/24/2024 2:30 PM CDT Appointment Department of Radiology, [facility], in [place], [place] [address] [place] [phone] Ghada Perdomo APRN, C.N.P., M.S.N. [address] [place] [phone] 08/25/2024 2:00 PM CDT Office Visit Department of Cardiovascular Medicine in [place], [place] [address] [place] [phone] Eliu Javier M.D. [address] [place] [phone] Health Maintenance Due Date Last Done Comments [...] this topic Medical Devices Implanted Type Area Special Effects Makeup Artist Device Identifier Shelf Expiration Date Model / Serial / Lot Medtronic 3830 Selectsecure Mri Surescan [id number] Implanted:10/2023 (Quantity not on file) Cardiac Lead Medtronic 3830 SELECTSECURE MRI SURESCAN / [id number] / Medtronic 3830 Selectsecure Mri Surescan [id number] Implanted:10/2023 (Quantity not on file) Cardiac Lead Medtronic 3830 SELECTSECURE MRI SURESCAN / [id number] / Medtronic 6935m Sprint Quattro Secure S Mri Surescan [id number] Implanted:10/2023 (Quantity not on file) Cardiac Lead Medtronic 6935M SPRINT QUATTRO SECURE S MRI SURESCAN / [id number] / Medtronic [id number] [place] Xt Hf Molder Punch-D Mri [id number] Implanted:10/2023 (Quantity not on file) Implant Cardiac Defibrillator Medtronic [id number] [place] XT HF RAW MATERIAL HANDLER-D MRI / [id number] / Procedures Procedure Name Priority Date/Time Associated Diagnosis Comments CREATININE WITH EGFR, S/P Routine 04/13/2024 11:13 AM HVAC SHEET METAL INSTALLER Sarcoid Myocarditis (HCC) Sarcoidosis VITAMIN B12 ASSAY, S Routine 04/13/2024 11:13 AM HVAC SHEET METAL INSTALLER Impairment Cognitive Mild THYROID FUNCTION CASCADE, S Routine 04/13/2024 11:13 AM HVAC SHEET METAL INSTALLER Impairment Cognitive Mild PET CT CARDIAC SARCOID RAD - Routine (most inpatients and all outpatients) 03/24/2024 1:09 PM HVAC SHEET METAL INSTALLER Sarcoid Myocarditis (HCC) ICD BIVENTRICULAR INTERROGATION WITH PROGRAMMING Routine 03/24/2024 10:47 AM HVAC SHEET METAL INSTALLER Sarcoid Myocarditis (HCC) HOLTER MONITOR - IN CLINIC ROOF TILER Routine 03/24/2024 4:14 AM HVAC SHEET METAL INSTALLER Sarcoid Myocarditis (HCC) ECG Routine 03/23/2024 11:51 AM HVAC SHEET METAL INSTALLER Sarcoid Myocarditis (HCC) (TTE) 2D ECHO DOPPLER COLOR AND CONTRAST Routine 03/23/2024 11:26 AM HVAC SHEET METAL INSTALLER Sarcoid Myocarditis (HCC) NT-PRO B-TYPE NATRIURETIC PEPTIDE (BNP), S Routine 03/23/2024 9:39 AM HVAC SHEET METAL INSTALLER Sarcoid Myocarditis (HCC) TROPONIN T, 5TH GEN, P Routine 03/23/2024 9:39 AM HVAC SHEET METAL INSTALLER Sarcoid Myocarditis (HCC) CBC WITH DIFFERENTIAL, B Routine 03/23/2024 9:39 AM HVAC SHEET METAL INSTALLER Sarcoid Myocarditis (HCC) COMPREHENSIVE METABOLIC PANEL, S/P Routine 03/23/2024 9:39 AM HVAC SHEET METAL INSTALLER Sarcoid Myocarditis (HCC) C-REACTIVE PROTEIN, HIGH SENSITIVITY, S/P Routine 03/23/2024 9:39 AM HVAC SHEET METAL INSTALLER Sarcoid Myocarditis (HCC) INTERFACED REMOTE DEVICE CHECK Routine 03/16/2024 1:27 PM HVAC SHEET METAL INSTALLER HEPATITIS B SURFACE ANTIGEN Routine 06/12/2023 12:27 PM CDT Sarcoidosis Immunodeficiency Due To Drugs (HCC) LIPID PANEL, S Routine 04/04/2023 8:00 AM HVAC SHEET METAL INSTALLER Failure Heart (HCC) from Last 3 Months or Most Recently Relevant to Health Maintenance Results * Thyroid Function [place] (04/13/2024 11:13 AM HVAC SHEET METAL INSTALLER) TSH, Sensitive 3.6 0.3 - 4.2 mIU/L 04/13/2024 2:02 PM HVAC SHEET METAL INSTALLER OWAT Blood (Blood, Venous) 04/13/2024 11:13 AM HVAC SHEET METAL INSTALLER 04/13/2024 1:09 PM HVAC SHEET METAL INSTALLER us Tyrone Callahan APRN.N.Cheryl., M.S.N. LAB BLOO D ADD-ON Final Result Performing Organization Address [facility] Co de Phone Number [facility] [address] [place] [address], [facility] OWAT [facility] [place] [address] [place] [address] * Vitamin B12 Assay (04/13/2024 11:13 AM HVAC SHEET METAL INSTALLER) Vitamin B12 Assay, S 282 232 - 1245 ng/L 04/13/2024 3:22 PM HVAC SHEET METAL INSTALLER AUST Comment: Biotin has been identified by the deputy treasurer as a potential interfering substance. Higher concentrations of biotin may be found in multivitamins, hair/nail supplements, and workout supplements. If the result does not match clinical observations, repeat testing after patient refrains from the use of supplements for at least 12 hours. Blood (Blood, Venous) 04/13/2024 11:13 AM HVAC SHEET METAL INSTALLER 04/13/2024 2:42 PM HVAC SHEET METAL INSTALLER us Tyrone Callahan APRN.N.P., M.S.N. LAB BLOO D ADD-ON Final Result Performing Organization Address [facility]/ZIP Co de Phone Number [facility] [address] [place] [address], [place] AUST [facility] [address] [place] [address] * Creatinine with Estimated GFR (04/13/2024 11:13 AM HVAC SHEET METAL INSTALLER) Creatinine 1.02 0.59 - 1.04 mg/dL 04/13/2024 2:44 PM HVAC SHEET METAL INSTALLER OWAT Estimated GFR (eGFR) 63 >=60 mL/min/BSA 04/13/2024 2:44 PM HVAC SHEET METAL INSTALLER [place] Comment: Estimated GFR calculated using the 2020 CKD_EPI creatinine equation. Blood (Blood, Venous) 04/13/2024 11:13 AM HVAC SHEET METAL INSTALLER 04/13/2024 1:10 PM HVAC SHEET METAL INSTALLER us Neena Espinoza APRN, C.N.P., D.N.P. LAB BLOOD ADD -ON Final Result Performing Organization Address [facility] Co de Phone Number [facility] [address], [place] [address], [place] [address] [facility] [place] [address] [place] [address] * PET CT Cardiac Sarcoid (03/24/2024 1:09 PM HVAC SHEET METAL INSTALLER) 03/24/2024 10:5 0 AM HVAC SHEET METAL INSTALLER Narrative MC CV MERGE - 03/24/2024 3:01 PM HVAC SHEET METAL INSTALLER See PDF For Result Procedure Note Yuan Bro M.D., Ph.D. - 03/24/2024 See PDF For Result us Ghada Perdomo APRN, C.N.P., M.S.N. [facility] P ROCEDURES Final Result Performing Organization Address City/[facility]/ZIP Co de Phone Number CV MERGE NA * ICD BIVENTRICULAR INTERROGATION WITH PROGRAMMING (03/24/2024 10:47 AM HVAC SHEET METAL INSTALLER) Date Time Interrogation Session [id number] [facility] Implantable Pulse Generator Special Effects Makeup Artist Medtronic [facility] Implantable Pulse Generator Type Cardiac Resynchronization Therapy - Defibrillator [facility] Implantable Pulse Generator Model [place] XT HF CRTD [id number] [facility] Implantable Pulse Generator Serial Number [id number] [facility] Implantable Pulse Generator Implant Date 20230704 [facility] Battery Voltage 3.020 [facility] Battery MOVER HELPER Trigger 2.800 [facility] Battery Status OK [facility] Capacitor Charge Time 3.600 [facility] Chin Statistic RA Percent Paced 46.59 [facility] Chin Statistic RV Percent Paced 0.39 [facility] RAW MATERIAL HANDLER Statistic LV Percent Paced 99.11 [facility] RAW MATERIAL HANDLER Statistic RAW MATERIAL HANDLER Percent Paced 0.89 [facility] Atrial Tachy Statistic AT/AF [place] Percent 0.00 [facility] Lead Channel [...] [facility] Ventricular chambers paced during RAW MATERIAL HANDLER pacing. LV [facility] Chin Setting [...] SYSTEM Therapy Statistic Recent Shocks Aborted 0 [facility] Therapy Statistic Recent ATP Delivered [...] 3 [facility] ION [facility] Implantable Lead Special Effects Makeup Artist Medtronic [facility] Implantable Lead Model 3830 SelectSecure MRI SureScan [facility] Implantable Lead Location Right Atrium [facility] Implantable Lead Connection Status Connected [facility] Implantable Lead Serial Number [id number] [facility] Implantable Lead Implant Date 20230704 [facility] Implantable Lead Special Function Lead length: 59.00 cm [facility] Implantable Lead Special Effects Makeup Artist Medtronic [facility] Implantable Lead Model 3830 SelectSecure MRI SureScan [facility] Implantable Lead Location Left Ventricle [facility] Implantable Lead Connection Status Connected [facility] Implantable Lead Serial Number [id number] [facility] Implantable Lead Implant Date 20230704 [facility] Implantable Lead Special Function Lead length: 69.00 cm [facility] Implantable Lead Special Effects Makeup Artist Medtronic [facility] Implantable Lead Model 6935M Sprint Quattro Secure S MRI SureScan [facility] Implantable Lead Location Right Ventricle [facility] Implantable Lead Connection Status Connected [facility] Implantable Lead Serial Number [id number] [facility] Implantable Lead Implant Date 20230704 [facility] Implantable Lead Special Function Lead length: 62.00 cm [facility] Anatomical Region Laterality Modality Echocardiography 04/01/2024 9:05 AM HVAC SHEET METAL INSTALLER Impressions 04/01/2024 9:05 AM HVAC SHEET METAL INSTALLER Encounter Impression: Title: Normal In-Office: No Events [...] Result * HOLTER MONITOR - IN CLINIC ROOF TILER (03/24/2024 4:14 AM HVAC SHEET METAL INSTALLER) Min Heart Rate 60 bpm INFOB IONIC [...] Duration 0 duration INFOBION IC MOME AF [place] 0 percent INFOBIONIC MOME Symptom Count 0 count INFOBI ONIC MOME 03/23/2024 11:5 9 AM HVAC SHEET METAL INSTALLER Narrative INFOBIONIC MOME - 03/25/2024 8:10 AM HVAC SHEET METAL INSTALLER 1. The basic rhythm was demand atrial [...] 1%. 4. No symptomatic events were noted. Mercury Recoverer: ARIANA Bell / ARIANA Koroma Procedure Note [...] 1%. 4. No symptomatic events were noted. Mercury Recoverer: ARIANA Bell / ARIANA Koroma Ghada Perdomo APRN, C.N.P., M.S.N. CV CARDI AC SERVICES PROCEDURES Final Result INFOBIONIC MOME NA * ECG 12 Lead (03/23/2024 11:51 AM HVAC SHEET METAL INSTALLER) Ventricular Rate ECG/Min 65 BPM MUSE WV Interval 184 ms MUSE QRSD Interval 136 ms MUSE QT Interval 468 ms MUSE QTC Interval 486 ms MUSE P [place] 67 degrees MUSE R [place] -12 degrees MUSE T Wave [place] 98 degrees MUSE 03/23/2024 11:5 1 AM HVAC SHEET METAL INSTALLER 03/23/2024 11:54 AM HVAC SHEET METAL INSTALLER Impressions MUSE - 03/23/2024 11:55 AM HVAC SHEET METAL INSTALLER Atrial-paced rhythm Left bundle branch block with [...] Ghada Perdomo APRN C.N.P., M.S.N. ECG [facility] Final Result MUSE NA * (TTE) 2D ECHO DOPPLER COLOR AND CONTRAST (03/23/2024 11:26 AM HVAC SHEET METAL INSTALLER) [facility] Ejection Fraction 65 MC CV EIMS [...] EIMS Anatomical Region Laterality Modality Echocardiography 03/23/2024 9:53 AM HVAC SHEET METAL INSTALLER Impressions 03/23/2024 12:00 PM HVAC SHEET METAL INSTALLER LEFT VENTRICLE:Borderline enlarged left ventricular chamber size. [...] was performed but not reported based on denture laboratory technician's judgment. Estimated right ventricular systolic pressure 35 [...] per Echocardiography Contrast Administration Protocol Reference Document [id number] Rev 06/08/2021. Patient met an inclusion criterion and did not have contraindications in screening sections. For the complete report, see the Order-Level Documents. Narrative 03/23/2024 12:00 PM HVAC SHEET METAL INSTALLER For the complete report, see the Order-Level [...] assessment wasperformed but not reported based on denture laboratory technician's judgment. Estimatedright ventricular systolic pressure 35 mmHg [...] administered per EchocardiographyContrast Administration Protocol Reference Document [id number] Rev06/08/2021. Patient met an inclusion criterion and did not havecontraindications in screening sections. For the complete report, see the Order-Level Documents. Ghada Perdomo APRN C.N.P., M.S.N. CV ECHO PROCEDURES Final Result * (ABNORMAL) NT-Pro B-Type Natriuretic Peptide (BNP) (03/23/2024 9:39 AM HVAC SHEET METAL INSTALLER) NT-Pro BNP 344(H) <=226 pg/mL 03/23/2024 10:53 AM HVAC SHEET METAL INSTALLER DTL Comment: NT-proBNP values less than 300 [...] failure. Blood (Blood, Venous) 03/23/2024 9:39 AM HVAC SHEET METAL INSTALLER 03/23/2024 10:19 AM HVAC SHEET METAL INSTALLER us Yas Callahan APRNNSandiePSandie, M.S.N. LAB BLOO D ADD-ON Final Result [facility] [address] [place] [address], [facility] DTL [facility] [address] [place] [address] * (ABNORMAL) CBC with Differential, Blood (03/23/2024 9:39 AM HVAC SHEET METAL INSTALLER) Hemoglobin 11.9 11.6 - 15.0 g/dL 03/23/2024 10:33 AM HVAC SHEET METAL INSTALLER DTL Hematocrit 36.9 35.5 - 44.9 % 03/23/2024 10:33 AM HVAC SHEET METAL INSTALLER DTL Erythrocytes 4.19 3.92 - 5.13 x10(12)/L 03/23/2024 10:33 AM HVAC SHEET METAL INSTALLER DTL MCV 88.1 78.2 - 97.9 fL 03/23/2024 10:33 AM HVAC SHEET METAL INSTALLER DTL RBC Distrib Width 14.9 12.2 - 16.1 % 03/23/2024 10:33 AM HVAC SHEET METAL INSTALLER DTL Platelet Count 181 157 - 371 x10(9)/L 03/23/2024 10:33 AM HVAC SHEET METAL INSTALLER DTL Leukocytes 4.8 3.4 - 9.6 x10(9)/L 03/23/2024 10:33 AM HVAC SHEET METAL INSTALLER DTL Neutrophils 3.60 1.56 - 6.45 x10(9)/L 03/23/2024 10:33 AM HVAC SHEET METAL INSTALLER DHPM Lymphocytes 0.30(L) 0.95 - 3.07 x10(9)/L 03/23/2024 10:33 AM HVAC SHEET METAL INSTALLER DTL Monocytes 0.70 0.26 - 0.81 x10(9)/L 03/23/2024 10:33 AM HVAC SHEET METAL INSTALLER DTL Eosinophils 0.10 0.03 - 0.48 x10(9)/L 03/23/2024 10:33 AM HVAC SHEET METAL INSTALLER DTL Basophils 0.05 0.01 - 0.08 x10(9)/L 03/23/2024 10:33 AM HVAC SHEET METAL INSTALLER DTL Blood (Blood, Venous) 03/23/2024 9:39 AM HVAC SHEET METAL INSTALLER 03/23/2024 10:06 AM HVAC SHEET METAL INSTALLER us Yas Callahan APRNNJae., M.S.N. LAB BLOO D ADD-ON Final Result Performing Organization Address [facility]/ZIP Co de Phone Number [facility] [address] [place] [address], [facility] [address] [place] [address] * (ABNORMAL) C-Reactive Protein, High Sensitivity (03/23/2024 9:39 AM HVAC SHEET METAL INSTALLER) C-Reactive Protein, High Sens, S 4.6(H) <2.0 mg/L 03/23/2024 10:53 AM HVAC SHEET METAL INSTALLER DTL Comment: Elevated C-reactive protein (>=2.0 mg/L) is a risk factor for cardiovascular disease. Clinician-patient discussion of therapeutic strategy is warranted. Blood (Blood, Venous) 03/23/2024 9:39 AM HVAC SHEET METAL INSTALLER 03/23/2024 10:19 AM HVAC SHEET METAL INSTALLER us Tyrone Callahan APRN.N.Cheryl., M.S.N. LAB BLOO D ADD-ON Final Result [facility] [address] [place] [address], [facility] [address] [place] [address] * (ABNORMAL) Troponin T, 5th Generation (03/23/2024 9:39 AM HVAC SHEET METAL INSTALLER) Troponin T, 5th gen 11(H) <=10 ng/L 03/23/2024 11:19 AM HVAC SHEET METAL INSTALLER DTL Blood (Blood, Venous) 03/23/2024 9:39 AM HVAC SHEET METAL INSTALLER 03/23/2024 10:19 AM HVAC SHEET METAL INSTALLER Yas Callahan APRNNCher, M.S.N. LAB BLOO D ADD-ON Final Result [facility] [address] [place] [address], [facility] DTL [facility] [address] [place] [address] * (ABNORMAL) Comprehensive Metabolic Panel (03/23/2024 9:39 AM HVAC SHEET METAL INSTALLER) Pathologist [facility] Potassium, S 4.3 3.6 - 5.2 mmol/L 03/23/2024 10:53 AM HVAC SHEET METAL INSTALLER DTL Sodium, S 141 135 - 145 mmol/L 03/23/2024 10:53 AM HVAC SHEET METAL INSTALLER DTL Chloride, S 103 98 - 107 mmol/L 03/23/2024 10:53 AM HVAC SHEET METAL INSTALLER DTL Bicarbonate, S 26 22 - 29 mmol/L 03/23/2024 10:53 AM HVAC SHEET METAL INSTALLER DTL Anion Gap 12 7 - 15 03/23/2024 10:53 AM HVAC SHEET METAL INSTALLER DTL BUN (Blood Urea Nitrogen), S 17 6 - 21 mg/dL 03/23/2024 10:53 AM HVAC SHEET METAL INSTALLER DTL Creatinine 1.45(H) 0.59 - 1.04 mg/dL 03/23/2024 10:53 AM HVAC SHEET METAL INSTALLER DTL Estimated GFR (eGFR) 41(L) >=60 mL/min/BS A 03/23/2024 10:53 AM HVAC SHEET METAL INSTALLER DTL Comment: Estimated GFR calculated using the 2020 CKD_EPI creatinine equation. Calcium, Total, S 9.6 8.8 - 10.2 mg/dL 03/23/2024 10:53 AM HVAC SHEET METAL INSTALLER DTL Glucose, S 81 70 - 140 mg/dL 03/23/2024 10:53 AM HVAC SHEET METAL INSTALLER DTL Protein, Total, S 6.0(L) 6.3 - 7.9 g/dL 03/23/2024 10:53 AM HVAC SHEET METAL INSTALLER DTL Albumin, S 4.0 3.5 - 5.0 g/dL 03/23/2024 10:53 AM HVAC SHEET METAL INSTALLER DTL Aspartate Aminotransferase (AST), S 20 8 - 43 U/L 03/23/2024 10:53 AM HVAC SHEET METAL INSTALLER DTL Alkaline Phosphatase, S 86 35 - 104 U/L 03/23/2024 10:53 AM HVAC SHEET METAL INSTALLER DTL Alanine Aminotransferase (ALT), S 15 7 - 45 U/L 03/23/2024 10:53 AM HVAC SHEET METAL INSTALLER DTL Bilirubin, Total, S 1.0 0.0 - 1.2 mg/dL 03/23/2024 10:53 AM HVAC SHEET METAL INSTALLER DTL Blood (Blood, Venous) 03/23/2024 9:39 AM HVAC SHEET METAL INSTALLER 03/23/2024 10:19 AM HVAC SHEET METAL INSTALLER Ghada Perdomo APRN, C.N.P., M.S.N. LAB BLOO D ADD-ON Final Result [facility] [address] [place] [address], [facility] [address] [place] [address] * CAR CARDIAC DEVICE INTERROGATION (03/16/2024 1:27 PM HVAC SHEET METAL INSTALLER) Date Time Interrogation Session [id number] [facility] Type Interrogation Session Remote [facility] Implantable Pulse Generator Special Effects Makeup Artist Medtronic [facility] Waterfall SYSTEM Implantable Pulse Generator Type Cardiac Resynchronization Therapy - Defibrillator [facility] Implantable Pulse Generator Model [id number] [facility] Implantable Pulse Generator Serial Number [id number] [facility] Implantable Pulse Generator Implant Date [id number] [facility] Battery Remaining Longevity 121.0 mo [facility] Battery Voltage 3.000 [facility] Battery MOVER HELPER Trigger 2.800 [facility] Capacitor Charge Time 3.600 [facility] Chin Statistic RV Percent Paced 0.00 [facility] RAW MATERIAL HANDLER Statistic LV Percent Paced 0.37 [facility] RAW MATERIAL HANDLER Statistic RAW MATERIAL HANDLER Percent Paced 0.00 [facility] Atrial Tachy Statistic AT/AF [place] Percent 0.00 [facility] Lead Channel Sensing Intrinsic Amplitude 3.400 [facility] Lead Channel Setting Sensing Sensitivity 0.30 [facility] Lead Channel Impedance Value 399 [facility] Lead Channel Setting Pacing Amplitude 2.000 [facility] Lead Channel Setting Pacing Pulse Width 0.4 [facility] Lead Channel Sensing Intrinsic Amplitude [...] [facility] Ventricular chambers paced during RAW MATERIAL HANDLER pacing. LVOnly [facility] Chin Setting Lower Rate Limit 60 [facility] Chin Setting AT Mode Switch Rate 150 [facility] Chin Setting Maximum Tracking Rate 130 [facility] Chin Setting Maximum Sensor Rate 130 [facility] Chin Setting PAV Delay 280 [...] 6 [facility] Implantable Lead Special Effects Makeup Artist Medtronic [facility] Implantable Lead Model 3830 SelectSecure MRI SureScan [facility] Implantable Lead Location Right Atrium [facility] Implantable Lead Connection Status Connected [facility] Implantable Lead Serial Number [id number] [facility] Implantable Lead Implant Date 20230704 [facility] Implantable Lead Special Function Lead length: 59.00 cm [facility] Implantable Lead Special Effects Makeup Artist Medtronic [facility] Implantable Lead Model 3830 SelectSecure MRI SureScan [facility] Implantable Lead Location Left Ventricle [facility] Implantable Lead Connection Status Connected [facility] Implantable Lead Serial Number [id number] [facility] Implantable Lead Implant Date 20230704 [facility] Implantable Lead Special Function Lead length: 69.00 cm [facility] Implantable Lead Special Effects Makeup Artist Medtronic [facility] Implantable Lead Model 6935M Sprint Quattro Secure S MRI SureScan [facility] Implantable Lead Location Right Ventricle [facility] Implantable Lead Connection Status Connected [facility] Implantable Lead Serial Number [id number] [facility] Implantable Lead Implant Date 20230704 [facility] Implantable Lead Special Function Lead length: 62.00 cm [facility] Anatomical Region Laterality Modality Other 03/25/2024 9:59 AM HVAC SHEET METAL INSTALLER Impressions 03/25/2024 9:59 AM HVAC SHEET METAL INSTALLER Encounter Impression: Title: Normal Remote: With Events [...] S Negative Negative 06/14/2023 10:56 AM CDT [facility] Blood (Blood, Venous) 06/12/2023 12:27 PM CDT 06/12/2023 4:50 PM CDT Olivia Arreguin M.D. LAB MICROBIOLOGY - [facility] OD ORDERABLES Final Result [facility] [address] [place] [address] [facility] [address] [place] [address] * (ABNORMAL) Lipid Panel (04/04/2023 8:00 AM HVAC SHEET METAL INSTALLER) Pathologist [facility] Triglycerides 144 mg/dL 04/04/2023 9:16 AM HVAC SHEET METAL INSTALLER DTL Comment: ----REFERENCE VALUE---- Normal: <150 mg/dL Borderline High: 150-199 mg/dL High: 200-499 mg/dL Very High: > or =500 mg/dL Cholesterol, Total 180 mg/dL 2023 9:16 AM HVAC SHEET METAL INSTALLER DTL Comment: ----REFERENCE VALUE---- Desirable: < 200 mg/dL Borderline High: 200 - 239 mg/dL High: > or = 240 mg/dL Cholesterol, LDL, Calculated 107 mg/dL 04/04/2023 9:16 AM HVAC SHEET METAL INSTALLER DTL Comment: ----REFERENCE VALUE---- Desirable: <100 mg/dL Above Desirable: 100-129 mg/dL Borderline High: 130-159 mg/dL High: 160-189 mg/dL Very High: >=190 mg/dL ----ADDITIONAL INFORMATION---- LDL cholesterol calculated using the Gardner/NIH equation. Cholesterol, HDL, S 48(L) >=50 mg/dL 04/04/2023 9:16 AM HVAC SHEET METAL INSTALLER DTL Cholesterol, Non-HDL, Calculated 132 mg/dL 04/04/2023 9:16 AM HVAC SHEET METAL INSTALLER DTL Comment: ----REFERENCE VALUE---- Desirable: <130 mg/dL Above Desirable: 130-159 mg/dL Borderline High: 160-189 mg/dL High: 190-219 mg/dL Very High: > or =220 mg/dL Fasting (8 HR or more) No 04/04/2023 8:41 AM HVAC SHEET METAL INSTALLER DTL Blood (Blood, Venous) 04/04/2023 8:00 AM HVAC SHEET METAL INSTALLER 04/04/2023 8:41 AM HVAC SHEET METAL INSTALLER Neisha Nolan APRN, C.N.P., M.S.N. LAB BLOOD ADD -ON Final Result [facility] [address] [place] [address], [facility] [address] [place] [address] from Last 3 Months or Most Recently Relevant to Health Maintenance Additional Health Concerns Infection Onset Date Last Indicated Protective Environment 07/31/2023 4 Insurance [facility] Care Teams Quantitative Analyst Relationship Specialty Start Date End Date Elsewhere, Pcp PCP - General Internal Medicine 08/16/23
--- OUTSIDE RECORDS SUMMARY | 2024-06-04 09:20 | XMS_ITS | Encounter Summary ---
Author Organization [facility] Address [address] [place] [address] Care Team Providers Care Plastic Production Machine Setter Name Role Phone Elsewhere, Pcp Primary Care Provider Unavailabl e Encounter Details Date Type Department Care Team (Latest Contact Info) Description 04/17/2024 Results Follow-Up Division of Rheumatology in [place], [place] [address] [place] [phone] Neena Espinoza, SHEET METAL INSTALLER, C.N.P., D.N.P. [address] [place] [phone] Creatinine with Estimated GFR Social History Tobacco Use Types Packs/Day Years Used Date Smoking Tobacco: Former Cigarettes 0.5 10 0 02/25/1994 - 02/26/2004 Passive Smoke Exposure: Past Smokeless Tobacco: Never Alcohol Use Standard Drinks/Week Comments Yes 2 (1 standard drink = 0.6 oz pur e alcohol) [facility] Utilities Answer Date Recorded In the past 12 months has [facility] [employer], oil, or water [employer] threatened to shut off services in your [...] any clubs o r organizations such as adventist groups, unions, fraternal or athletic groups, or [...] all 11/22/2021 [facility] - Occupational [...] your living situation today? I have a [facility] place to live 03/30/2023 Education Answer Date Recorded What is the highest level of school you have completed or the highest degree you have received? Master's degree (e.g., MA, MS, Arti, MEd, GRANITE INSTALLER, GALA) 11/22/2021 Comments Unknown Sex and Gender Information Value Date Recorded Sex Assigned at Female 11/22/2021 11:24 PM CDT Legal Sex Female 8:39 AM FUNERAL ATTENDANT Gender Identity Female 11/22/2021 11:24 PM CDT Sexual Orientation Lesbian or Alonso 11/22/2021 11 :24 PM CDT documented as of this encounter Plan of Treatment Upcoming Encounters Date Type Department Care Team (Latest Contact Info) Description 08/20/2024 10:30 AM CDT Clinical Communication Virtual Review in [place], [place] 200 [place] [phone] 08/24/2024 8:00 AM CDT Ancillary Procedure Department of Cardiovascular Medicine in [place], [place] [address] [place] [phone] Ghada Perdomo APRN, C.N.P., M.S.N. [address] [place] [phone] 08/24/2024 8:30 AM CDT Appointment Department of Cardiovascular Diseases in [place], [place] [address] [place] [phone] Ghada Perdomo APRN, C.N.P., M.S.N. [address] [place] [phone] 08/24/2024 9:20 AM CDT Appointment Department of Cardiovascular Diseases in [place], [place] [address] [place] [phone] Ghada Perdomo APRN, C.N.P., M.S.N. [address] [place] [phone] 08/24/2024 10:00 AM CDT Appointment Department of Laboratory Medicine and Pathology, [facility] in [place], [place] [address] [place] [phone] Ghada Perdomo APRN, C.N.P., M.S.N. [address] [place] [phone] 08/24/2024 10:30 AM CDT Office Visit Division of Rheumatology in [place], [place] [address] [place] [phone] Neena Espinoza APRN, C.N.P., D.N.P. [address] [place] [phone] 08/24/2024 12:00 PM CDT Appointment Department of Cardiovascular Diseases in [place], [place] [address] [place] [phone] Ghada Perdomo APRN, C.N.P., M.S.N. [address] [place] [phone] 08/24/2024 2:30 PM CDT Appointment Department of Radiology, [facility], in [place], [place] [address] [place] [phone] Ghada Perdomo APRN, Amos., M.S.N. [address] [place] [phone] 08/25/2024 2:00 PM CDT Office Visit Department of Cardiovascular Medicine in [place], [place] [address] [place] [phone] Eliu Javier M.D. [address] [place] [phone] documented as of this encounter Visit Diagnoses Not on filedocumented in this encounter Additional Health Concerns Infection Onset Date Last Indicated Resolved Time Protective Environment 07/31/2023 07/31/2023 documented as of this encounter Care Teams Plastic Production Machine Setter Relationship Specialty Start Date End Date Elsewhere, Pcp PCP - General Internal Medicine 08/16/23 documented as of this encounter
[2024-06-04 09:22] LABS: Slide Review Reflex No
[2024-06-04 09:22] LABS: PCR RSV Negative PCR RSV (Negative)
[2024-06-04 09:31] LABS: Chloride* 98 mmol/L (96-114); Potassium* 4.2 mmol/L (3.6-5.1); Sodium* 135 mmol/L (135-149)
[2024-06-04 09:34] LABS: Blood Urea Nitrogen* 11 mg/dL (7-30); Est. Creatinine Clearance* 61.74; Estimated Glomerular Filt Rate 64 ml/min
[2024-06-04 09:35] LABS: Anion Gap 8 mEq/L (7-15); Calcium* 9.3 mg/dL (8.4-10.6); Carbon Dioxide* 29 mmol/L (20-32); Glucose* 99 mg/dL (60-115)
[2024-06-04] MEDS: ACETAMINOPHEN 500 MG TABLET 1000 MG PO (09:35)
[2024-06-04 09:37] LABS: D Dimer Quantitative* 1.92 ug/ml (0.00-0.50)
[2024-06-04 09:38] LABS: C Reactive Protein* 5.1 mg/dL (0.5-1.0)
[2024-06-04 09:52] LABS: Procalcitonin* 0.16 ng/mL (<0.50)
--- NOTE | 2024-06-04 09:52 | CRLHL7_ITS ---
For Patients: As a result of the Century Cures Act, medical imaging exams and procedure reports are released immediately into your electronic medical record. You may view this report before your referring provider. If you have questions, please contact your health care provider. INDICATION: Dyspnea and hypoxia. Elevated D-dimer. History of sarcoidosis. COMPARISON: None TECHNIQUE: : CT examination of the chest was performed with the uneventful intravenous administration of 95 cc of Isovue 370 while thin axial sections were obtained from above the apices of the lungs to the lung bases. The examination was timed as a pulmonary artery angiogram. Please note that all CT scans at this facility use dose modulation, iterative reconstruction, and/or weight-based dosing when appropriate to reduce radiation dose to as low as reasonably achievable. FINDINGS: : HEART and MEDIASTINUM: The heart size is top-normal. No significant pericardial fluid. Atherosclerotic vascular calcifications. Mediastinal and bilateral hilar lymph nodes that are calcified consistent with the history of sarcoidosis. PULMONARY ARTERIAL CIRCULATION: There is no visible intraluminal filling defect to suggest pulmonary embolus. LUNGS and PLEURAL SPACES: Abnormal lung findings primarily central and peribronchiolar extending into the upper lobes consistent with sarcoidosis. There are also patchy ground-glass opacities and some smooth thickening of the interlobular septa which is not generally considered a manifestation of sarcoidosis. The 2nd component could be due to a mild atypical inflammatory process or mild interstitial edema. No pleural effusion or pneumothorax. VISUALIZED UPPER ABDOMEN: Hepatic steatosis. Status post cholecystectomy. Limited visualized upper abdominal structures appear normal. OSSEOUS STRUCTURES: Age-appropriate appearance. No acute fracture or destructive process. TUBES and LINES: A pacer/ICD is normally located IMPRESSION: 1. There is no evidence of pulmonary embolus. 2. Mediastinal findings consistent with sarcoidosis. 3. There also lung findings consistent with sarcoidosis. However, there is also smooth thickening of the interlobular septa and patchy ground-glass. These 2 findings are generally not consistent with sarcoidosis and probably represents a separate process such as mild edema or an inflammatory process. Please note that all CT scans at this facility use dose modulation, iterative reconstruction, and/or weight-based dosing when appropriate to reduce radiation dose to as low as reasonably achievable. Dictated by Vidal Morales MD @ 06/04/2024 10:25:33 AM (Electronically Signed)
[2024-06-04 09:53] LABS: NT Pro B Type NatriureticPept* 979 pg/mL
[2024-06-04] MEDS: IPRAT-ALBUT 0.5-2.5 MG/3 ML NEB 1 NEB IH (10:19)
[2024-06-04] MEDS: METHYLPREDNISOLONE SOD SUCC 62.5 MG/ML (125) 125 MG IVP (10:45)
[2024-06-04] MEDS: cefTRIAXone 1 GM in 0.9 % SODIUM CHLORIDE Mini-bag 100 ML IVPB (14:24)
[2024-06-04] MEDS: AZITHROMYCIN 250 MG TABLET 500 MG PO (14:24)
--- NOTE | 2024-06-04 18:05 | PC.NURSE ---
end of shift. pt has been very pleasant. no pain. she is on PO and Iv antibiotics. she is eating, drinking and voiding with no problems. SL is patent, she is up ab paz. she is on 2L nc. she feels better.
[2024-06-04] MEDS: ENOXAPARIN 40 MG/0.4 ML INJ SUBCUT (21:00)
[2024-06-04] MEDS: QUETIAPINE 25 MG TABLET PO (21:01)
[2024-06-04] MEDS: NORTRIPTYLINE 10 MG CAPSULE 20 MG PO (21:01)
[2024-06-04] MEDS: SODIUM CHLORIDE 0.9 % (FLUSH) 10 ML SYRINGE 5 ML IVF (21:01)
[2024-06-05 03:55] VITALS: BP 137/67; PULSE 73; RESP 16; TEMP 36.4; O2SAT 94
--- NOTE | 2024-06-05 06:56 | PC.NURSE ---
Pt alert and oriented x3. Afebrile. Pt posterior lung sounds have expiratory wheezing. Pt continues to have non-productive cough. Pt titrated from 2L nasal cannula to 1.5 L maintaining O2 stats of 90%. Pt denies pain, chest pain, SOB and N/V. Pt is up ad paz, voiding, tolerating a regular diet.
[2024-06-05 07:00] VITALS: BP 127/80; PULSE 85; RESP 16; RESP 18; TEMP 36.6; O2SAT 94
[2024-06-05 08:00] VITALS: PULSE 85; RESP 18
[2024-06-05] MEDS: predniSONE 20 MG TABLET 40 MG PO (09:22)
[2024-06-05] MEDS: cefTRIAXone 1 GM in 0.9 % SODIUM CHLORIDE Mini-bag 100 ML IVPB (09:23)
[2024-06-05] MEDS: AZITHROMYCIN 250 MG TABLET 500 MG PO (09:23)
--- NOTE | 2024-06-05 10:41 | RESP.RT ---
Respiratory Therapy Assessment: The patient was assessed today by respiratory therapy for evaluation of oxygen needs. She is currently on room air with an SpO? saturation of 98%. The patient is not in respiratory distress and appears in good spirits. She expressed hope that she will be able to discharge home today. Findings were reported to the attending physician. Respiratory therapy will continue to follow and remain available as needed.
--- NOTE | 2024-06-05 11:45 | PM.IMHP1 ---
Assessment and Plan Assessment and plan (1) Community acquired pneumonia: Problem comment: Clinically and radiographically has evidence of pneumonia. Move with ceftriaxone and azithromycin Status: Acute (2) Hypoxic respiratory failure: Problem comment: Acute hypoxic respiratory failure due to community-acquired pneumonia and sarcoidosis. Now weaned off oxygen. 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 Short course of prednisone Status: Acute Plan Admit to hospital for supplemental oxygen, IV antibiotics, cardia respiratory monitoring. At risk for complications due to underlying sarcoidosis as well as immunosuppression. Total Time Spent Total Time Spent: Total time spent is 60 minutes in reviewing outside records, coordination of care, discussion with patient, family and other providers management of sarcoidosis, pneumonia and immune suppression Hospitalist- H&P: HPI History of Present Illness Date Seen: 06/04/24 Chief complaint: has respiratory infection, low pulse ox Narrative: Admission HPI: Patient is a 59-year-old woman with a history of sarcoidosis, maintained on methotrexate, cardiac arrest about a year ago secondary to V-tach with a defibrillator placed. She notes a couple days of illness with cough and shortness of breath. Last night she noted a fever. Cough is fairly dry. She denies chest pain. She has not had lower extremity swelling or pain. She did just return from a trip to [place], she says that her son got sick with a respiratory illness after they returned on the . She has had nausea but no vomiting. No diarrhea. She does feel like it has been difficult to stay hydrated. She says on her home pulse oximeter she was periodically seeing O2 sats of 78% which is low for her. She does note that her O2 sats typically run in the low 90s, 90% here does not seem concerning to her. She says she does not have home oxygen, but notes that if she had that she probably would not have come in. She does not smoke. Patient has pulmonary sarcoidosis for which she is on methotrexate. Previously was on prednisone for this as well. She does not carry a diagnosis of COPD or asthma but is on inhaled bronchodilators. No history of cardiac disease. In the emergency department she was found to have interstitial opacities suggestive of a viral or atypical pneumonia as well as findings possibly consistent with pulmonary sarcoidosis. Serologies for influenza, COVID, RSV were negative. She was hypoxic and dyspneic and seeking oxygen supplementation. She was admitted to the hospital and placed on systemic steroids, ceftriaxone and azithromycin for community-acquired pneumonia and inhaled bronchodilators. Review of Systems Narrative: Other than respiratory symptoms above she reports feeling well. 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D84.821 - Immunodeficiency due to drugs (ICD-10) ?Z79.899 - Other exterminator termite (current) drug therapy (ICD-10) Gastroesophageal reflux disease without esophagitis (08/23/23) ?K21.9 - Gastro-esophageal reflux disease without esophagitis (ICD-10) Complete heart block (06/29/23) ?I44.2 - Atrioventricular block, complete (ICD-10) Abnormal LFTs (06/29/23) ?R79.89 - Other specified abnormal findings of blood chemistry (ICD-10) Ventricular trigeminy ?I49.8 - Other specified cardiac arrhythmias (ICD-10) Nonrheumatic mitral valve insufficiency (08/23/23) ?I34.0 - Nonrheumatic mitral (valve) insufficiency (ICD-10) Mitral valve regurgitation ?I34.0 - Nonrheumatic mitral (valve) insufficiency (ICD-10) Depression (08/23/23) ?F32.A - Depression, unspecified (ICD-10) 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) ?D86.85 - Sarcoid myocarditis (ICD-10) Cardiac arrest (06/29/23) ?I46.9 - Cardiac arrest, cause unspecified (ICD-10) Anxiety (08/23/23) ?F41.9 - Anxiety disorder, unspecified (ICD-10) Ventricular trigeminy ?I49.8 - Other specified cardiac arrhythmias (ICD-10) Mitral valve regurgitation ?I34.0 - Nonrheumatic mitral (valve) insufficiency (ICD-10) Depression ?F32.A - Depression, unspecified (ICD-10) Anxiety ?F41.9 - Anxiety disorder, unspecified (ICD-10) Sarcoidosis ?D86.9 - Sarcoidosis, unspecified (ICD-10) 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 - Immunodeficiency due to drugs (ICD-10) ?Z79.899 - Other exterminator termite (current) drug therapy (ICD-10) Social History (Updated 06/05/24 @ 11:57 by Joey Tarango MD) Narrative: 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 She is present here with her daughter. She he is a former smoker. She does not drink alcohol. Code status is full What is your current living situation?: I presently have a place to live Problems where you live: no known problems Problems where you live details: n/a In the past 12 months, utilities in danger of being shut off: no In past 12 months, lack of transportation kept you from medical appts, meetings, work, or getting things needed for daily living: no In the past 12 mos, have been you worried that your food would run out before you had money to buy more?: never true In the past 12 mos, the food you bought just didn't last and you didn't have money to buy more?: never true Highest level of school completed/degree received: Master's degree Smoking Status: Former smoker Do you use any of these nicotine containing products: None Nicotine containing products detail: half pack a day for 10 years Second hand tobacco smoke exposure: No How often do you have a drink containing alcohol: never How often do you have six or more drinks on one occasion: Never AUDIT-C Alcohol total score: 0 Non-prescribed substance use: denies use Caffeine: Yes (one 16 oz coke daily) How often does anyone, including family, friends and others, physically hurt you: never How often does anyone, including family, friends and others, insult or talk down to you: never How often does anyone, including family, friends and others, threaten you with harm: never How often does anyone, including family, friends and others, scream or curse at you: never service: No Meds Home Medications and Allergies Home Medications ?Medication ?Instructions ?Recorded ?Confirmed ?Type nortriptyline 10 mg capsule 20 mg PO HS 09/29/21 06/04/24 History quetiapine 25 mg tablet 25 mg PO HS 09/29/21 06/04/24 History albuterol sulfate 90 mcg/actuation 2 inh inhalation Q4H PRN 02/02/23 06/04/24 History aerosol inhaler metronidazole 0.75 % topical cream 1 applic topical BID PRN 02/02/23 06/04/24 History cholecalciferol (vitamin D3) 10 800 unit PO DAILY 06/04/24 06/04/24 History mcg (400 unit) tablet folic acid 1 mg tablet 1 mg PO BID 06/04/24 06/04/24 History ipratropium 0.5 mg-albuterol 3 mg 3 ml inhalation Q6H PRN 06/04/24 06/04/24 History (2.5 mg base)/3 mL nebulization soln methotrexate sodium 2.5 mg tablet 20 mg PO Q7D 06/04/24 06/04/24 History metoprolol succinate 50 mg 50 mg PO BID 06/04/24 06/04/24 History tablet,extended release 24 hr potassium chloride 20 mEq 20 meq PO DAILY 06/04/24 06/04/24 History tablet,extended release(part/cryst) (Klor-Con M) Allergies Allergy/AdvReac Type Severity Reaction Status Date / Time Sulfa (Sulfonamide Allergy Unknown Nausea,Vomi Verified 06/04/24 10:41 Antibiotics) ting Exam Narrative: Exam Narrative: She is alert and appears in no distress. She gives her own history. Eyes normal. Oropharynx normal. Neck is supple without mass or adenopathy. Respirations with fair air exchange in all lung skinner. She has diffuse crackles more prominent at lung bases. No wheezing. Cardiovascular: S1, S2, regular rate and rhythm. Abdomen: Bowel sounds active. Abdomen is soft without tenderness or mass. Extremities without edema. She has intact peripheral pulses. No rash. Const: Vital Signs, click to edit/add: Vital Signs - 24 hr 06/04/24 12:00 06/04/24 12:15 06/04/24 12:30 Temperature Pulse Rate 72 73 73 Pulse Rate [Right Radial] Respiratory Rate Blood Pressure [Ri ght Arm] Pulse Oximetry 88 91 90 Oxygen Delivery Me thod Oxygen Flow Rate 2 06/04/24 13:21 06/04/24 14:34 06/04/24 14:39 Temperature 98.0 F Pulse Rate Pulse Rate [Right Radial] 77 Respiratory Rate 18 18 18 Blood Pressure [Ri ght Arm] 111/72 Pulse Oximetry 93 93 93 Oxygen Delivery Me thod Nasal Cannula Nasal Cannula Nasal Cannula Oxygen Flow Rate 2 2 06/04/24 14:43 06/04/24 19:00 06/04/24 23:58 Temperature 98.0 F 97.8 F Pulse Rate Pulse Rate [Right Radial] 68 74 Respiratory Rate 18 18 20 Blood Pressure [Ri ght Arm] 122/77 112/72 Pulse Oximetry 93 98 98 Oxygen Delivery Me thod Nasal Cannula Nasal Cannula Nasal Cannula Oxygen Flow Rate 2 2 2 06/04/24 23:58 06/05/24 03:55 Temperature 97.7 F 97.6 F Pulse Rate Pulse Rate [Right Radial] 62 73 Respiratory Rate 16 16 Blood Pressure [Ri ght Arm] 122/58 L 137/67 Pulse Oximetry 98 94 Oxygen Delivery Me thod Nasal Cannula Nasal Cannula Oxygen Flow Rate 2 2 Documenting provider has reviewed patient's vital signs: yes Hospitalist - H&P: Result Imaging CT scan - chest: Radiologist's impression: INDICATION: Dyspnea and hypoxia. Elevated D-dimer. History of sarcoidosis. COMPARISON: None TECHNIQUE: : CT examination of the chest was performed with the uneventful intravenous administration of 95 cc of Isovue 370 while thin axial sections were obtained from above the apices of the lungs to the lung bases. The examination was timed as a pulmonary artery angiogram. Please note that all CT scans at this facility use dose modulation, iterative reconstruction, and/or weight-based dosing when appropriate to reduce radiation dose to as low as reasonably achievable. FINDINGS: : HEART and MEDIASTINUM: The heart size is top-normal. No significant pericardial fluid. Atherosclerotic vascular calcifications. Mediastinal and bilateral hilar lymph nodes that are calcified consistent with the history of sarcoidosis. PULMONARY ARTERIAL CIRCULATION: There is no visible intraluminal filling defect to suggest pulmonary embolus. LUNGS and PLEURAL SPACES: Abnormal lung findings primarily central and peribronchiolar extending into the upper lobes consistent with sarcoidosis. There are also patchy ground-glass opacities and some smooth thickening of the interlobular septa which is not generally considered a manifestation of sarcoidosis. The 2nd component could be due to a mild atypical inflammatory process or mild interstitial edema. No pleural effusion or pneumothorax. VISUALIZED UPPER ABDOMEN: Hepatic steatosis. Status post cholecystectomy. Limited visualized upper abdominal structures appear normal. OSSEOUS STRUCTURES: Age-appropriate appearance. No acute fracture or destructive process. TUBES and LINES: A pacer/ICD is normally located IMPRESSION: 1. There is no evidence of pulmonary embolus. 2. Mediastinal findings consistent with sarcoidosis. 3. There also lung findings consistent with sarcoidosis. However, there is also smooth thickening of the interlobular septa and patchy ground-glass. These 2 findings are generally not consistent with sarcoidosis and probably represents a separate process such as mild edema or an inflammatory process.
--- NOTE | 2024-06-05 12:00 | PM.DS1 ---
DS: Providers Provider Date Seen: 06/05/24 Date of admission: 06/04/24 13:57 Primary care physician: Lavern Beavers MD Admitting Clinician: Joey Tarango MD Consults: 06/04/24 13:57 Consult to Respiratory Therapy [CONS] Routine Comment: Reason(s) for RT Consult:: Consult Attending Physician on discharge: Joey Tarango MD Date of Discharge: 06/05/24 DS: Diagnosis Discharge Diagnosis (1) Community acquired pneumonia: Status: Acute Problem details: Clinically and radiographically has evidence of pneumonia. Move with ceftriaxone and azithromycin (2) Hypoxic respiratory failure: Status: Acute Problem details: Acute hypoxic respiratory failure due to community-acquired pneumonia and sarcoidosis. 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 Short course of prednisone DS: Summary Hospital Course Hospital Course: Admission HPI: Patient is a 59-year-old woman with a history of sarcoidosis, maintained on methotrexate, cardiac arrest about a year ago secondary to V-tach with a defibrillator placed. She notes a couple days of illness with cough and shortness of breath. Last night she noted a fever. Cough is fairly dry. She denies chest pain. She has not had lower extremity swelling or pain. She did just return from a trip to [place], she says that her son got sick with a respiratory illness after they returned on the . She has had nausea but no vomiting. No diarrhea. She does feel like it has been difficult to stay hydrated. She says on her home pulse oximeter she was periodically seeing O2 sats of 78% which is low for her. She does note that her O2 sats typically run in the low 90s, 90% here does not seem concerning to her. She says she does not have home oxygen, but notes that if she had that she probably would not have come in. She does not smoke. Patient has pulmonary sarcoidosis for which she is on methotrexate. Previously was on prednisone for this as well. She does not carry a diagnosis of COPD or asthma but is on inhaled bronchodilators. No history of cardiac disease. In the emergency department she was found to have interstitial opacities suggestive of a viral or atypical pneumonia as well as findings possibly consistent with pulmonary sarcoidosis. Serologies for influenza, COVID, RSV were negative. She was hypoxic and dyspneic and seeking oxygen supplementation. She was admitted to the hospital and placed on systemic steroids, ceftriaxone and azithromycin for community-acquired pneumonia and inhaled bronchodilators. Patient clinically improved overnight. He was requiring oxygen until this morning when she is weaned off of oxygen. She reports her breathing is better. Still has some cough and dyspnea with activity. Anxious to go home. Status at Discharge Overall status at discharge: patient is progressing back to baseline Time Spent with Patient Time attestation: Total time spent providing and/or coordinating discharge services: Time spent: Greater than 30 minutes Exam Narrative: Exam Narrative: She is alert and appears in no distress. Breathing room air. Respirations with persistent diffuse mild crackles more prominent in the bases. Cardiovascular: S1, S2, regular rate and rhythm. She has no edema. Const: Vital Signs, click to edit/add: Vital Signs - 24 hr 06/04/24 12:15 06/04/24 12:30 06/04/24 13:21 Temperature 98.0 F Pulse Rate 73 73 Pulse Rate [Right Radial] 77 Respiratory Rate 18 Blood Pressure [Ri t Arm] 111/72 Pulse Oximetry 91 90 93 Oxygen Delivery Me thod Nasal Cannula Oxygen Flow Rate 2 06/04/24 14:34 06/04/24 14:39 06/04/24 14:43 Temperature 98.0 F Pulse Rate Pulse Rate [Right Radial] 68 Respiratory Rate 18 18 18 Blood Pressure [Ri ght Arm] 122/77 Pulse Oximetry 93 93 93 Oxygen Delivery Me thod Nasal Cannula Nasal Cannula Nasal Cannula Oxygen Flow Rate 2 2 2 06/04/24 19:00 06/04/24 23:58 06/04/24 23:58 Temperature 97.8 F 97.7 F Pulse Rate Pulse Rate [Right Radial] 74 62 Respiratory Rate 18 20 16 Blood Pressure [Ri ght Arm] 112/72 122/58 L Pulse Oximetry 98 98 98 Oxygen Delivery Me thod Nasal Cannula Nasal Cannula Nasal Cannula Oxygen Flow Rate 2 2 2 06/05/24 03:55 Temperature 97.6 F Pulse Rate Pulse Rate [Right Radial] 73 Respiratory Rate 16 Blood Pressure [Ri ght Arm] 137/67 Pulse Oximetry 94 Oxygen Delivery Me thod Nasal Cannula Oxygen Flow Rate 2 Documenting provider has reviewed patient's vital signs: yes DS: Data Imaging CT scan - chest: Radiologist's impression: INDICATION: Dyspnea and hypoxia. Elevated D-dimer. History of sarcoidosis. COMPARISON: None TECHNIQUE: : CT examination of the chest was performed with the uneventful intravenous administration of 95 cc of Isovue 370 while thin axial sections were obtained from above the apices of the lungs to the lung bases. The examination was timed as a pulmonary artery angiogram. Please note that all CT scans at this facility use dose modulation, iterative reconstruction, and/or weight-based dosing when appropriate to reduce radiation dose to as low as reasonably achievable. FINDINGS: : HEART and MEDIASTINUM: The heart size is top-normal. No significant pericardial fluid. Atherosclerotic vascular calcifications. Mediastinal and bilateral hilar lymph nodes that are calcified consistent with the history of sarcoidosis. PULMONARY ARTERIAL CIRCULATION: There is no visible intraluminal filling defect to suggest pulmonary embolus. LUNGS and PLEURAL SPACES: Abnormal lung findings primarily central and peribronchiolar extending into the upper lobes consistent with sarcoidosis. There are also patchy ground-glass opacities and some smooth thickening of the interlobular septa which is not generally considered a manifestation of sarcoidosis. The 2nd component could be due to a mild atypical inflammatory process or mild interstitial edema. No pleural effusion or pneumothorax. VISUALIZED UPPER ABDOMEN: Hepatic steatosis. Status post cholecystectomy. Limited visualized upper abdominal structures appear normal. OSSEOUS STRUCTURES: Age-appropriate appearance. No acute fracture or destructive process. TUBES and LINES: A pacer/ICD is normally located IMPRESSION: 1. There is no evidence of pulmonary embolus. 2. Mediastinal findings consistent with sarcoidosis. 3. There also lung findings consistent with sarcoidosis. However, there is also smooth thickening of the interlobular septa and patchy ground-glass. These 2 findings are generally not consistent with sarcoidosis and probably represents a separate process such as mild edema or an inflammatory process. Discharge Plan Discharge Disposition: Home, Self-Care Date of Admission: 06/04/24 13:57 Attending Provider on Discharge: Joey Tarango Primary Care Provider: Lavern Beavers I Condition: Improved Anticipated Discharge Date/Time: 06/05/24 10:00 Discharge Medications: New prednisone 20 mg Tablet 40 mg PO DAILYWM Qty: 10 0RF azithromycin 250 mg tablet 250 mg PO DAILY 6 Days Qty: 6 0RF Rx Instructions: start on day 2 of therapy Continued nortriptyline 10 mg capsule 20 mg PO HS quetiapine 25 mg tablet 25 mg PO HS metronidazole 0.75 % cream 1 applic topical BID PRN Rx Instructions: TO FACE albuterol sulfate 90 mcg/actuation HFA aerosol inhaler 2 inh inhalation Q4H PRN methotrexate sodium 2.5 mg tablet 20 mg PO Q7D Rx Instructions: SATURDAY cholecalciferol (vitamin D3) 10 mcg (400 unit) tablet 800 unit PO DAILY Rx Instructions: Take 800 units by mouth once daily. ipratropium-albuterol 0.5 mg-3 mg(2.5 mg base)/3 mL solution for nebulization 3 ml INHALATION Q6H PRN Rx Instructions: Inhale 3 mL via a nebulizer every 6 hours if needed for Shortness Of Breath. folic acid 1 mg tablet 1 mg PO BID metoprolol succinate 50 mg tablet extended release 24 hr 50 mg PO BID potassium chloride [Klor-Con M20] 20 mEq tablet,ER particles/crystals 20 meq PO DAILY Discharge Orders: Discharge Order (Routine); Ordered 06/05/24 Ordered By: Joey Tarango Patient Education: Azithromycin (By mouth), Prednisolone (By mouth), Pneumonia (DC) Activity Level: Activity as Tolerated Discharge Diet: Regular Follow Up Appointments: Lavern Beavers MD [Primary Care Provider] - (as needed) [facility] Instructions
--- NOTE | 2024-06-05 12:04 | PC.NURSE ---
discharge. pt has been pleasant. Pt alert and oriented x3. Afebrile. Pt posterior lung sounds coarse no wheezing was noted. . Pt continues to have non-productive cough. pt was 95% on !.5L nc, took off o2 and she was able to maintain sao2 above 90%. tcdb. Pt is up ad paz, voiding, tolerating a regular diet. RT and MD saw here this am. went over discharge packet went over meds x2, no appointments, education, and instructions. she too all belongings and paperwork with her. she got a w/c ride to her van.
== END 2024-06-05 11:43 | disposition home or self-care (01) | DRG 139 ==
LOC: ED 12:25 → MEDSURG 13:06
PROVIDERS: Admitting Provider Family Medicine; Emergency Provider Emergency Medicine; PCP Family Medicine; Visit Provider Family Medicine
DX: J18.9 Pneumonia, unspecified organism (principal); J96.01 Acute respiratory failure with hypoxia; D86.89 Sarcoidosis of other sites; D86.85 Sarcoid myocarditis; D84.821 Immunodeficiency due to drugs; Z79.631 Long term (current) use of antimetabolite agent; Z86.74 Personal history of sudden cardiac arrest; F32.A Depression, unspecified; F41.9 Anxiety disorder, unspecified; Z87.891 Personal history of nicotine dependence; I34.0 Nonrheumatic mitral (valve) insufficiency; Z95.810 Presence of automatic (implantable) cardiac defibrillator
CPT/HCPCS: 36415; 71046; 71275; 80048; 83605; 83880; 84145; 84484; 85025; 85379; 86140; 87631; 94761; 99284; 99285; A9270; J0696; J1650; J2919; J7512; Q9967

== ENCOUNTER 2024-08-31 12:31 | Emergency (ER) | payer BC, SELFPAY ==
--- OUTSIDE RECORDS SUMMARY | 2024-07-24 10:30 | XMS_ITS | Encounter Summary ---
Author Organization [facility] Address [address] [place] [id number] Care Team Providers Care Can Filler Name Role Phone Elsewhere, Pcp Primary Care Provider Unavailabl e Reason for Referral * MRI/CAT/PET Scan (Routine) - Closed Specialty Diagnoses / Procedures Referred By Contac t Referred To Contact Radiology Diagnoses Impairment Cognitive Mild Procedures MR Brain Dementia with Quant Analysis without IV Contrast MR Brain Dementia without IV Contrast Ghada Perdomo APRN C.N.P., M.S.N. [address] [place] [phone] Phone: tel: fax: [facility] Referral ID Status Reason Start Date Expiration Date Visits Re quested Visits Authorized [id number] Closed 03/25/2024 06/25/2025 1 1 Reason for Visit * MRI/CAT/PET Scan (Routine) - Closed Specialty Diagnoses / Procedures Referred By Contac t Referred To Contact Radiology Diagnoses Impairment Cognitive Mild Procedures MR Brain Dementia with Quant Analysis without IV Contrast MR Brain Dementia without IV Contrast Ghada Perdomo APRN, C.N.P., M.S.N. [address] [place] [phone] Phone: tel: fax: [facility] Referral ID Status Reason Start Date Expiration Date Visits Re quested Visits Authorized [id number] Closed 03/25/2024 06/25/2025 1 1 Encounter Details Date Type Department Care Team (Latest Contact Info) Description 07/24/2024 10:30 AM CDT - 07/24/2024 11:00 AM CDT Hospital Encounter Department of Radiology, [facility] in [place], [place] [address] [place] [address] Ghada Perdomo APRN, C.N.P., M.S.N. [address] [place] [address] Impairment Cognitive Mild Discharge Disposition: Home or Self Care Social History Tobacco Use Types Packs/Day Years Used Date Smoking Tobacco: Former Cigarettes 0.5 10 0 02/25/1994 - 02/26/2004 Passive Smoke Exposure: Past Smokeless Tobacco: Never Alcohol Use Standard Drinks/Week Comments Yes 2 (1 standard drink = 0.6 oz pur e alcohol) [facility] Utilities Answer Date Recorded In the past 12 months has e [employer], gas, oil, or water [employer] threatened to shut off services in your [...] by your partner or ex-partner? No 11/22/2021 Hunger Vital Sign Answer Date Recorded [...] things needed for daily living? No 03/30/2023 Housing Stability Answer Date Recorded What is your living situation today? I have a [place] place to live 03/30/2023 Education Answer Date Recorded What is the highest level of school you have completed or the highest degree you have received? 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 06/16/2024 cholecalciferol (Vitamin D3) 10 mcg (400 Unit) tablet Take 800 Units by mouth daily. famotidine (Pepcid) 40 mg tabletIndications :Gastroesophageal Reflux Disease Without Esophagitis Take 1 tablet (40 mg total) by mouth 2 (two) times a day. 08/23/2023 ipratropium-albut Alejandar (DuoNeb) 0.5-2.5 mg/3 mL nebulizer solution Inhale 3 mL every 6 (six) hours as needed. 12/31/2023 metoprolol succinate (Toprol XL) 50 mg 24 hr tablet Take 1 tablet (50 mg total) by mouth 2 (two) times a day. 180 tablet 3 08/21/2023 metroNIDAZOLE (METROCREAM) 0.75 % cream Apply 1 Application topically daily. 06/05/2022 mometasone/formot alejandra (DULERA INHL) Inhale 1 Inhalation 2 (two) times a day. nebulizer accessories kit Nebulizer, neb kit, neb cup and mask. Medication: albuterol. For home use. Length of need for Medicare patients: 99 12/31/2023 nortriptyline (PAMELOR) 10 mg capsule Take 20 mg by mouth at bedtime. 05/22/2021 nystatin (Mycostatin) 100,000 unit/mL suspension Take 5 mL by mouth as needed. 02/03/2023 potassium chloride (Klor-Con M) 20 mEq ER tablet Take 1 tablet by mouth daily. 08/12/2023 QUEtiapine (SEROquel) 25 mg tablet Take 25 mg by mouth at bedtime. 05/22/2021 calcium carbonate 1,250 mg (500 mg calcium) chewable tablet Chew 1,250 mg daily with breakfast. folic acid 1 mg tabletIndications :Sarcoid Myocarditis (HCC),Sarcoidosis Take 2 tablets (2 mg total) by mouth daily. 180 tablet 1 03/25/2024 methotrexate (TrexalL) 2.5 mg tabletIndications :Sarcoid Myocarditis (HCC),Sarcoidosis Take 8 tablets (20 mg total) by mouth once a week. 96 tablet 1 03/25/2024 documented as of this encounter Plan of Treatment Upcoming Encounters Date Type Department Care Team (Latest Contact Info) Description 10/14/2024 11:45 AM CDT Clinical Communication Virtual Review in [place], [place] 200 [place] [address] 10/19/2024 12:00 PM CDT Appointment Department of Radiology, [facility], in [place], [place] [address] [place] [phone] Navi Motley M.D. [address] [place] [phone] 10/19/2024 1:30 PM CDT Diagnostic Division of Pulmonary Medicine in [place], [place] [address] [place] [phone] Navi Motley M.D. [address] [place] [phone] 10/19/2024 4:00 PM CDT Office Visit Division of Pulmonary Medicine in [place], [place] [address] [place] [phone] Navi Motley M.D. [address] [place] [address] 11/02/2024 9:30 AM CDT Telemedicine Division of Rheumatology in [place], [place] [address] [place] [phone] Neena Espinoza APRN, C.N.P., D.N.P. [address] [place] [phone] documented as of this encounter Procedures Procedure Name Priority Date/Time Associated Diagnosis Comments MR BRAIN DEMENTIA WITH QUANT ANALYSIS WITHOUT IV CONTRAST RAD - Routine (most inpatients and all outpatients) 07/24/2024 12:05 PM CDT Impairment Cognitive Mild documented in this encounter Results * MR Brain Dementia with Quant Analysis without IV Contrast (07/24/2024 12:05 PM CDT) Anatomical Region Laterality Modality Head, Brain, Neuroradiology RST LOS, Neuroradiology ARZ LOS, Neuroradiology FLA LOS N/A Magnetic Resonance Impressions 07/24/2024 12:43 PM CDT No abnormal intracranial mass or hemorrhage. No chronic infarcts or evidence of prior hemorrhage. Hippocampal volumes reported to be at the 5th age normalized percentile. Narrative 07/24/2024 12:43 PM CDT EXAM: MR BRAIN DEMENTIA WITH QUANT ANALYSIS WITHOUT IV CONTRAST TECHNICAL NOTE: This patient has an MR non-conditional cardiac implantable electronic device. Written informed consent was obtained prior to exam. Scanning was performed in accordance with department protocol. Cardiology/ACLS certified personnel programmed the device appropriately before and after the MRI and monitored the patient for the entire MR exam. COMPARISON: None FINDINGS: No abnormal intracranial mass, mass effect, or hemorrhage. No restricted diffusion. Trace leukoaraiosis. No focal chronic infarcts identified. Patent intracranial arterial flow voids. Image post-processing for quantitative segmental volume reporting and assessment was performed on an independent computer rail car repairer using [employer] Mobile software. The clinical indication for performing the post-processing was cognitive changes. Review of the director software quality assurance images demonstrates adequate segmentation of the hippocampi. Left hippocampal volume: 2.76 Right hippocampal volume: 3 Hippocampal asymmetry index: -8.47 Combined hippocampal volume: 5.76 Combined hippocampal volume age-adjusted percentile: 5 Combined inferior lateral ventricles (temporal horns) volume: 1.11 Combined inferior lateral ventricles (temporal horns) age-adjusted percentile: 19 Hippocampal volumes reported to be at the 5th age normalized percentile. Variant element of incomplete left hippocampal inversion with adjacent deep collateral sulcus. Whole brain volume reported to be at the 30th age normalized percentile (series [id number]). Mild paranasal sinus mucosal thickening. Procedure Note Marlo Moy Jr., M.D., Ph.D. - 07/24/2024 EXAM: MR BRAIN DEMENTIA WITH QUANT ANALYSIS WITHOUT IV CONTRAST TECHNICAL NOTE: This patient has an MR non-conditional cardiac implantableelectronic device. Written informed consent was obtained prior to exam.Scanning was performed in accordance with department protocol.Cardiology/ACLS certified personnel programmed the device appropriately before and after the MRI and monitoredthe patient for the entire MR exam. COMPARISON: None FINDINGS: No abnormal intracranial mass, mass effect, or hemorrhage. Norestricted diffusion. Trace leukoaraiosis. No focal chronic infarctsidentified. Patent intracranial arterial flow voids. Image post-processing for quantitative segmental volume reporting andassessment was performed on an independent computer rail car repairer usingArtisan Mobile software. The clinical indication for performing thepost-processing was cognitive changes. Review of the director software quality assurance images demonstrates adequate segmentation of thehippocampi. Left hippocampal volume: 2.76 Right hippocampal volume: 3 Hippocampal asymmetry index: -8.47 Combined hippocampal volume: 5.76 Combined hippocampal volume age-adjusted percentile: 5 Combined inferior lateral ventricles (temporal horns) volume: 1.11 Combined inferior lateral ventricles (temporal horns) age-adjustedpercentile: 19 Hippocampal volumes reported to be at the 5th age normalized percentile.Variant element of incomplete left hippocampal inversion with adjacentdeep collateral sulcus. Whole brain volume reported to be at the 30th agenormalized percentile (series [id number]). Mild paranasal sinus mucosal thickening. IMPRESSION: No abnormal intracranial mass or hemorrhage. No chronic infarcts orevidence of prior hemorrhage. Hippocampal volumes reported to be at the5th age normalized percentile. us Ghada Perdomo APRN, C.N.P., M.S.N. IMG MRI PROCEDURES Final Result documented in this encounter Visit Diagnoses Diagnosis Impairment Cognitive Mild documented in this encounter Additional Health Concerns Infection Onset Date Last Indicated Resolved Time Protective Environment 07/31/2023 07/31/2023 documented as of this encounter Care Teams Can Filler Relationship Specialty Start Date End Date Elsewhere, Pcp PCP - General Internal Medicine 08/16/23 documented as of this encounter
--- OUTSIDE RECORDS SUMMARY | 2024-07-24 11:01 | XMS_ITS | Encounter Summary ---
Author Organization [facility] Address [address] [place] [phone] Care Team Providers Care Manual Arts Therapist Name Role Phone Elsewhere, Pcp Primary Care Provider Unavailabl e Encounter Details Date Type Department Care Team (Latest Contact Info) Description 07/24/2024 11:01 AM CDT - 07/24/2024 11:38 AM CDT Hospital Encounter Department of Cardiovascular Diseases in [place], [place] [address] [place] [phone] Fernando Tomlin M.D. [address] [place] [address] Aftercare Cardiac Defibrillator Discharge Disposition: Home or Self Care Social History Tobacco Use Types Packs/Day Years Used Date Smoking Tobacco: Former Cigarettes 0.5 10 0 02/25/1994 - 02/26/2004 Passive Smoke Exposure: Past Smokeless Tobacco: Never Alcohol Use Standard Drinks/Week Comments Yes 2 (1 standard drink = 0.6 oz pur e alcohol) [facility] Utilities Answer Date Recorded In the past 12 months has e [employer], gas, oil, or water [employer] threatened to shut off services in your [...] Master's degree (e.g., MA, MS, Arti, MEd, HEALTH CLINICIAN, GALA) 11/22/2021 Comments Unknown Sex and Gender Information Value Date Recorded Sex Assigned at Female 11/22/2021 11:24 PM CDT Legal Sex Female 8:39 AM TYPIST Gender Identity Female 11/22/2021 11:24 PM CDT [...] 2 (two) times a day. 08/23/2023 ipratropium-albut Alejandra (DuoNeb) 0.5-2.5 mg/3 mL nebulizer solution Inhale [...] once a week. 96 tablet 1 03/25/2024 5 documented as of this encounter Plan of Treatment Upcoming Encounters Date Type Department Care Team (Latest Contact Info) Description 10/14/2024 11:45 AM CDT Clinical Communication Virtual Review in [place], [place] 200 [place] [address] 10/19/2024 12:00 PM CDT Appointment Department of Radiology, [facility], in [place], [place] [address] [place] [phone] Navi Motley M.D. [address] [place] [phone] 10/19/2024 1:30 PM CDT Diagnostic Division of Pulmonary Medicine in [place], [place] [address] [place] [address] Navi Motley M.D. [address] [place] [phone] 10/19/2024 4:00 PM CDT Office Visit Division of Pulmonary Medicine in [place], [place] [address] [place] [address] Navi Motley M.D. [address] [place] [phone] 11/02/2024 9:30 AM CDT Telemedicine Division of Rheumatology in [place], [place] [address] [place] [address] Neena Espinoza APRN, C.N.P., D.N.P. [address] [place] [phone] documented as of this encounter Procedures Procedure Name Priority Date/Time Associated Diagnosis Comments ICD PERIOPERATIVE INTERROGATION Routine 07/24/2024 11:02 AM CDT Aftercare Cardiac Defibrillator documented in this encounter Results * ICD PERIOPERATIVE INTERROGATION (07/24/2024 11:02 AM CDT) Date Time Interrogation Session [id number] [facility] Implantable Pulse Generator Rooter Operator Medtr[employer] [facility] Implantable Pulse Generator Type Cardiac Resynchronization Therapy - Defibrillator [facility] Implantable Pulse Generator Model [place] XT HF CRTD [id number] [facility] Implantable Pulse Generator Serial Number [id number] [facility] Implantable Pulse Generator Implant Date 20230704 [facility] Battery Voltage 3.010 [facility] Battery DIESEL MECHANIC HELPER Trigger 2.800 [facility] Battery Status OK FOUND ATEgr [facility] Capacitor Charge Time 3.600 [facility] Chin Statistic RA Percent Paced 51.37 [facility] Chin Statistic RV Percent Paced 0.61 [facility] DURABILITY ENGINEER Statistic LV Percent Paced 99.51 [facility] DURABILITY ENGINEER Statistic DURABILITY ENGINEER Percent Paced 0.49 [facility] Atrial Tachy Statistic AT/AF [place] Percent 0.00 [facility] Lead Channel Sensing Intrinsic Amplitude 3.900 [facility] Lead Channel Setting Sensing Sensitivity 0.30 [facility] Lead Channel Impedance Value 418 [facility] Lead Channel Pacing Threshold Amplitude 1.000 [facility] Lead Channel Pacing Threshold Pulse Width 0.4 [facility] Lead Channel Setting Pacing Amplitude 1.500 [facility] Lead Channel Setting Pacing Pulse Width 0.4 [facility] Lead Channel Sensing Intrinsic Amplitude 11.900 [facility] Lead Channel Impedance Value 361 [facility] Lead Channel Pacing Threshold Amplitude 0.750 [facility] Lead Channel Impedance Value 665 [facility] Lead Channel Pacing Threshold Amplitude 1.750 [facility] Lead Channel Pacing Threshold Pulse Width 0.4 [facility] Lead Channel Measurements Date and Time [id number] [facility] Lead Channel Setting Pacing Amplitude 2.500 [facility] Lead Channel Setting Pacing Pulse Width 0.4 [facility] Chin Setting Mode (NBG Code) AOO [facility] Chin Setting Lower Rate Limit 80 [facility] Therapy Statistic Recent Shocks Aborted 0 [facility] Therapy Statistic Recent ATP Delivered 0 [facility] Murj RV HV Impedance 69 [facility] Zone Setting Type Category VF [facility] Murj Rate 1 188 [facility] Murj Therapies 2 x iATP, 40J, 40J, 40J, 40J, 40J, 40J [facility] Zone Setting Status Off [facility] Murj Zone ID 0 [facility] Zone Setting Type Category FVT [facility] Murj Rate 1 250 [facility] Murj Therapies 5 x iATP, 40J, 40J, 40J, 40J, 40J [facility] Zone Setting Status Off [facility] Murj Zone ID 1 [facility] Zone Setting Type Category VT [facility] Zone Setting Status Off F[facility] Murj Zone ID 2 [facility] Zone Setting Type Category VT Monitor [facility] Murj Rate 1 150 [facility] Zone Setting Status Off F[facility] Murj Zone ID 3 [facility] Implantable Lead Rooter Operator Medtronic [facility] Implantable Lead Model 3830 SelectSecure MRI SureScan [facility] Implantable Lead Location Right Atrium [facility] Implantable Lead Connection Status Connected [facility] Implantable Lead Serial Number [id number] [facility] Implantable Lead Implant Date 20230704 [facility] Implantable Lead Special Function Lead length: 59.00 cm [facility] Implantable Lead Rooter Operator Medtronic [facility] Implantable Lead Model 3830 SelectSecure MRI SureScan [facility] Implantable Lead Location Left Ventricle [facility] Implantable Lead Connection Status Connected [facility] Implantable Lead Serial Number [id number] [facility] Implantable Lead Implant Date 20230704 [facility] Implantable Lead Special Function Lead length: 69.00 cm [facility] Implantable Lead Rooter Operator Medtronic [facility] Implantable Lead Model 6935M [employer] Quattro Secure S MRI SureScan [facility] Implantable Lead Location Right Ventricle [facility] Implantable Lead Connection Status Connected [facility] Implantable Lead Serial Number [id number] [facility] Implantable Lead Implant Date 20230704 [facility] Implantable Lead Special Function Lead length: 62.00 cm [facility] Anatomical Region Laterality Modality Other 08/05/2024 8:42 AM CDT Impressions 08/05/2024 8:42 AM CDT Encounter Impression: Title: Pre-MRI Check * Pre-MRI device interrogation performed * Sensing, impedance and thresholds reviewed and tested * Presenting rhythm: Atrial Pace ventricular sense at 72 bpm * Underlying rhythm was reviewed which showed sinus chin at 56 bpm * No observed device anomalies pre-MRI * Device reprogrammed: Y device was put into MRI mode.The ICD was turned OFF. Mode was changed from DDDR to AOO and lower rate was set to 80 bpm. RA amplitude was set to 5.0 V at 1.0 ms Title: Premature Ventricular Contraction (PVC) * Number of PVCs from counters: _ Since 03/24/24 patient has had 78 single PVCs/hr and 2.0 runs of PVCs/hr Plan: This patient underwent device interrogation. I agree that the device interrogation was medically indicated to provide appropriate care and continue routine device interrogations as indicated. Encounter Summary: This report includes 1 transmission that was received on 2024-07-24. Battery, lead impedance, sensing amplitude and pacing threshold data was reviewed. Narrative Procedure Note Fernando Tomlin M.D. - 08/05/2024 IMPRESSION: Encounter Impression: Title: Pre-MRI Check * Pre-MRI device interrogation performed * Sensing, impedance and thresholds reviewed and tested * Presenting rhythm: Atrial Pace ventricular sense at 72 bpm * Underlying rhythm was reviewed which showed sinus chin at 56 bpm * No observed device anomalies pre-MRI * Device reprogrammed: Y device was put into MRI mode.The ICD was turnedOFF. Mode was changed from DDDR to AOO and lower rate was set to 80 bpm.RA amplitude was set to 5.0 V at 1.0 ms Title: Premature Ventricular Contraction (PVC) * Number of PVCs from counters: _ Since 03/24/24 patient has had 78 singlePVCs/hr and 2.0 runs of PVCs/hr Plan: This patient underwent device interrogation. I agree that the deviceinterrogation was medically indicated to provide appropriate care andcontinue routine device interrogations as indicated. Encounter Summary: This report includes 1 transmission that was receivedon 2024-07-24. Battery, lead impedance, sensing amplitude and pacingthreshold data was reviewed. Fernando Corado M.D. CV IMPLANTABLE CARD IAC DEVICE Final Result documented in this encounter Visit Diagnoses Diagnosis Aftercare Cardiac Defibrillator documented in this encounter Additional Health Concerns Infection Onset Date Last Indicated Resolved Time Protective Environment 07/31/2023 07/31/2023 documented as of this encounter Care Teams Manual Arts Therapist Relationship Specialty Start Date End Date Elsewhere, Pcp PCP - General Internal Medicine 08/16/23 documented as of this encounter
--- OUTSIDE RECORDS SUMMARY | 2024-07-24 11:39 | XMS_ITS | Encounter Summary ---
Author Organization [facility] Address [address] [place] [id number] Care Team Providers Care Merchandise Worker Name Role Phone Elsewhere, Pcp Primary Care Provider Unavailabl e Encounter Details Date Type Department Care Team (Latest Contact Info) Description 07/24/2024 11:39 AM CDT - 07/24/2024 11:59 PM CDT Hospital Encounter Department of Cardiovascular Diseases in [place], [place] [address] [place] [address] Fernando Tomlin M.D. [address] [place] [address] Aftercare Cardiac Defibrillator Discharge Disposition: Home or Self Care Social History Tobacco Use Types Packs/Day Years Used Date Smoking Tobacco: Former Cigarettes 0.5 10 0 02/25/1994 - 02/26/2004 Passive Smoke Exposure: Past Smokeless Tobacco: Never Alcohol Use Standard Drinks/Week Comments Yes 2 (1 standard drink = 0.6 oz pur e alcohol) [facility] Utilities Answer Date Recorded In the past 12 months has e [employer], gas, oil, or water [employer] threatened to shut off services in your [...] your living situation today? I have a [facility] place to live 03/30/2023 Education Answer Date Recorded What is the highest level of school you have completed or the highest degree you have received? Master's degree (e.g., MA, MS, Arti, MEd, BIT SHARPENER OPERATOR, GALA) 11/22/2021 Comments Unknown Sex and Gender Information Value Date Recorded Sex Assigned at Female 11/22/2021 11:24 PM CDT Legal Sex Female 8:39 AM HEAD CONCIERGE Gender Identity Female 11/22/2021 11:24 PM CDT [...] AM CDT Clinical Communication Virtual Review in [place], [place] 200 [place] [address] 10/19/2024 12:00 PM CDT Appointment Department of Radiology, [facility], in [place], [place] [address] [place] [phone] Navi Motley M.D. [address] [place] [phone] 10/19/2024 1:30 PM CDT Diagnostic Division of Pulmonary Medicine in [place], [place] [address] [place] [address] Navi Motley M.D. [address] [place] [phone] 10/19/2024 4:00 PM CDT Office Visit Division of Pulmonary Medicine in [place], [place] [address] [place] [address] Navi Motley M.D. [address] [place] [phone] 11/02/2024 9:30 AM CDT Telemedicine Division of Rheumatology in [place], [place] [address] [place] [address] Neena Espinoza APRN, C.N.P., D.N.P. [address] [place] [phone] documented as of this encounter Procedures Procedure Name Priority Date/Time Associated Diagnosis Comments ICD PERIOPERATIVE INTERROGATION Routine 07/24/2024 11:39 AM CDT Aftercare Cardiac Defibrillator documented in this encounter Results * ICD PERIOPERATIVE INTERROGATION (07/24/2024 11:39 AM CDT) Date Time Interrogation Session [id number] [facility] Implantable Pulse Generator Principal Investigator Medtronic [facility] Implantable Pulse Generator Type Cardiac Resynchronization Therapy - Defibrillator [facility] Implantable Pulse Generator Model [place] XT HF CRTD [id number] [facility] Implantable Pulse Generator Serial Number [id number] [facility] Implantable Pulse Generator Implant Date 20230704 [facility] Battery Voltage 3.010 [facility] [employer] [facility] Battery STAKEHOLDER MANAGER Trigger 2.800 [facility] Battery Status OK [facility] Capacitor Charge Time 3.600 [facility] Chin Statistic RA Percent Paced 51.37 [facility] Chin Statistic RV Percent Paced 0.61 [facility] MOSS BLEACHER Statistic LV Percent Paced 99.51 [facility] MOSS BLEACHER Statistic MOSS BLEACHER Percent Paced 0.49 [facility] Atrial Tachy Statistic AT/AF [place] Percent 0.00 [facility] Lead Channel Sensing Intrinsic Amplitude 3.000 [facility] Lead Channel Setting Sensing Sensitivity 0.30 [facility] Lead Channel Impedance Value 418 [facility] Lead Channel Pacing Threshold Amplitude 1.000 [facility] Lead Channel Pacing Threshold Pulse Width 0.4 [facility] Lead Channel Setting Pacing Amplitude 2.000 [facility] Lead Channel Setting Pacing Pulse Width 0.4 [facility] Lead Channel Sensing Intrinsic Amplitude 12.600 [facility] Lead Channel Impedance Value 361 [facility] Lead Channel Pacing Threshold Amplitude 0.750 [facility] Lead Channel Pacing Threshold Pulse Width 0.4 [facility] Lead Channel Impedance Value 665 [facility] Lead Channel Pacing Threshold Amplitude 1.750 [facility] Lead Channel Pacing Threshold Pulse Width 0.4 [facility] Lead Channel Measurements Date and Time [id number] [facility] Lead Channel Setting Pacing Amplitude 2.750 [facility] Lead Channel Setting Pacing Pulse Width 0.4 [facility] Chin Setting Mode (NBG Code) DDDR [facility] Ventricular chambers paced during MOSS BLEACHER pacing. LV [facility] Chin Setting [...] Recent ATP Delivered 0 [facility] RV HV Impedance 69 [facility] [...] 3 [facility] ION [facility] Implantable Lead Principal Investigator Medtronic [facility] Implantable Lead Model 3830 SelectSecure MRI SureScan [facility] Implantable Lead Location Right Atrium [facility] Implantable Lead Connection Status Connected [facility] Implantable Lead Serial Number [id number] [facility] Implantable Lead Implant Date 20230704 [facility] Implantable Lead Special Function Lead length: 59.00 cm [facility] Implantable Lead Principal Investigator Medtronic [facility] Implantable Lead Model 3830 SelectSecure MRI SureScan [facility] Implantable Lead Location Left Ventricle [facility] Implantable Lead Connection Status Connected [facility] Implantable Lead Serial Number [id number] [facility] Implantable Lead Implant Date 20230704 [facility] Implantable Lead Special Function Lead length: 69.00 cm [facility] Implantable Lead Principal Investigator Medtronic [facility] Implantable Lead Model 6935M [employer] Quattro Secure S MRI SureScan [facility] Implantable Lead Location Right Ventricle [facility] Implantable Lead Connection Status Connected [facility] Implantable Lead Serial Number [id number] [facility] Implantable Lead Implant Date 20230704 [facility] Implantable Lead Special Function Lead length: 62.00 cm [facility] Anatomical Region Laterality Modality Other 08/05/2024 8:42 AM CDT Impressions 08/05/2024 8:42 AM CDT Encounter Impression: Title: Device Reprogrammed Device reprogrammed, changes are listed below: *RA amplitude was changed from 1.5 V to 2.0 V * LV amplitude was changed from 2.5 V to 2.75 V. * ICD was turned back on * Mode was changed from AOO back to DDDR * Lower rate returned to 60 bpm Title: Post-MRI Check * Post-MRI device interrogation performed * Sensing, impedance and thresholds reviewed and tested * Confirmed pre-MRI device settings * No observed device anomalies post-MRI * Presenting Rhythm : Atrial pace ventricular sense at 80 bpm * Underlying rhythm Sinus at 60 bpm * Device reprogrammed: Y Plan: This patient underwent device interrogation. I agree that the device interrogation was medically indicated to provide appropriate care and continue routine device interrogations as indicated. Encounter Summary: This report includes 1 transmission that was received on 2024-07-24. Battery, lead impedance, sensing amplitude and pacing threshold data was reviewed. Narrative Procedure Note Fernando Tomlin M.D. - 08/05/2024 IMPRESSION: Encounter Impression: Title: Device Reprogrammed Device reprogrammed, changes are listed below: *RA amplitude was changed from 1.5 V to 2.0 V * LV amplitude was changed from 2.5 V to 2.75 V. * ICD was turned back on * Mode was changed from AOO back to DDDR * Lower rate returned to 60 bpm Title: Post-MRI Check * Post-MRI device interrogation performed * Sensing, impedance and thresholds reviewed and tested * Confirmed pre-MRI device settings * No observed device anomalies post-MRI * Presenting Rhythm : Atrial pace ventricular sense at 80 bpm * Underlying rhythm Sinus at 60 bpm * Device reprogrammed: Y Plan: This patient underwent device interrogation. I agree that the deviceinterrogation was medically indicated to provide appropriate care andcontinue routine device interrogations as indicated. Encounter Summary: This report includes 1 transmission that was receivedon 2024-07-24. Battery, lead impedance, sensing amplitude and pacingthreshold data was reviewed. us Fernando Corado M.D. CV IMPLANTABLE CARD IAC DEVICE Final Result documented in this encounter Visit Diagnoses Diagnosis Aftercare Cardiac Defibrillator documented in this encounter Additional Health Concerns Infection Onset Date Last Indicated Resolved Time Protective Environment 07/31/2023 07/31/2023 documented as of this encounter Care Teams Merchandise Worker Relationship Specialty Start Date End Date Elsewhere, Pcp PCP - General Internal Medicine 08/16/23 documented as of this encounter
--- OUTSIDE RECORDS SUMMARY | 2024-08-20 13:15 | XMS_ITS | Encounter Summary ---
Author Organization [facility] Address [address] [place] [address] Care Team Providers Care Real Estate Salesperson Name Role Phone Elsewhere, Pcp Primary Care Provider Unavailabl e Reason for Visit * Reason Onset Date Comments Pre-visit Intake 08/20/2024 * Appointment Request (Routine) - Authorized Specialty Diagnoses / Procedures Referred By Martina t Referred To Contact Cardiovascular Disease Referral ID Status Reason Start Date Expiration Date V isits Requested Visits Authorized [id number] Authorized 06/01/2024 09/01/2025 1 1 Encounter Details Date Type Department Care Team (Latest Contact Info) Description 08/20/2024 1:15 PM CDT Clinical Communication Virtual Review in [place], [place] [address] [place] [address] Pre-visit Intake Social History Tobacco Use Types Packs/Day Years Used Date Smoking Tobacco: Former Cigarettes 0.5 10 0 02/25/1994 - 02/26/2004 Passive Smoke Exposure: Past Smokeless Tobacco: Never Tobacco Cessation:Counseling Given: Not Answered Alcohol Use Standard Drinks/Week Comments Yes 2 (1 standard drink = 0.6 oz pur e alcohol) [facility] Utilities Answer Date Recorded In the past 12 months has e electric, gas, oil, or water [employer] threatened to shut off services in your home? No 08/19/2024 Humiliation, Afraid, Rape, and Kick questionnair e [...] the money to buy more. Never true 08/20/19 Within the past 12 months, t he food you bought just didn't last and you didn't have money to get more. Never true 08/19/2024 PRAPARE - Transportation Answer Date Re corded In the past 12 months, has l ack of transportation kept you from medical appointments or from getting medications? No 07/27 In the past 12 months, has l ack of transportation kept you from meetings, work, or from getting things needed for daily living? No 08/19/2024 Housing Stability Answer Date Recorded What is your living situation today? I have a [facility] place to live 08/19/2024 Education Answer Date Recorded What is the highest level of school you have completed or the highest degree you have received? Master's degree (e.g., MA, MS, Arti, MEd, PILE HEADER, GALA) 11/22/2021 Comments Unknown Sex and Gender Information Value Date Recorded Sex Assigned at Female 11/22/2021 11:24 PM CDT Legal Sex Female 8:39 AM ACTIVE DIRECTORY SPECIALIST Gender Identity Female 11/22/2021 11:24 PM CDT Sexual Orientation Lesbian or Alonso 11/22/2021 11 :24 PM CDT documented as of this encounter Plan of Treatment Upcoming Encounters Date Type Department Care Team (Latest Contact Info) Description 10/14/2024 11:45 AM CDT Clinical Communication Virtual Review in [place], [place] [address] [place] [address] 10/19/2024 12:00 PM CDT Appointment Department of Radiology, [facility], in [place], [place] [address] [place] [phone] Navi Motley M.D. [address] [place] [phone] 10/19/2024 1:30 PM CDT Diagnostic Division of Pulmonary Medicine in [place], [place] [address] [place] [phone] Navi Motley M.D. [address] [place] [phone] 10/19/2024 4:00 PM CDT Office Visit Division of Pulmonary Medicine in [place], [place] [address] [place] [phone] Navi Motley M.D. [address] [place] [phone] 11/02/2024 9:30 AM CDT Telemedicine Division of Rheumatology in [place], [place] [address] [place] [phone] Neena Espinoza APRN, C.N.P., D.N.P. [address] [place] [phone] documented as of this encounter Visit Diagnoses Not on filedocumented in this encounter Additional Health Concerns Infection Onset Date Last Indicated Resolved Time Protective Environment 07/31/2023 07/31/2023 documented as of this encounter Care Teams Real Estate Salesperson Relationship Specialty Start Date End Date Elsewhere, Pcp PCP - General Internal Medicine 08/16/23 documented as of this encounter
--- OUTSIDE RECORDS SUMMARY | 2024-08-24 08:09 | XMS_ITS | Encounter Summary ---
Author Organization [facility] Address [address] [place] [phone] Care Team Providers Care Mud Mixer Operator Name Role Phone Elsewhere, Pcp Primary Care Provider Unavailabl e Encounter Details Date Type Department Care Team (Latest Contact Info) Description 08/24/2024 8:09 AM CDT - 08/24/2024 9:11 AM CDT Hospital Encounter Department of Cardiovascular Diseases in [place], [place] [address] [place] [phone] Ghada Perdomo APRN, C.N.P., M.S.N. [address] [place] [phone] Sarcoid Myocarditis (HCC) Discharge Disposition: Home or Self Care Social History Tobacco Use Types Packs/Day Years Used Date Smoking Tobacco: Former Cigarettes 0.5 10 0 02/25/1994 - 02/26/2004 Passive Smoke Exposure: Past Smokeless Tobacco: Never Alcohol Use Standard Drinks/Week Comments Yes 2 (1 standard drink = 0.6 oz pur e alcohol) [facility] Utilities Answer Date Recorded In the past 12 months has e [employer], gas, oil, or water [employer] threatened to shut off services in your [...] your living situation today? I have a [facility] place to live 08/19/2024 Education Answer Date Recorded What is the highest level of school you have completed or the highest degree you have received? 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 12/31/2023 metroNIDAZOLE (METROCREAM) 0.75 % cream Apply 1 [...] AM CDT Clinical Communication Virtual Review in [place], [place] 200 [place] [address] 10/19/2024 12:00 PM CDT Appointment Department of Radiology, [facility], in [place], [place] [address] [place] [phone] Navi Motley M.D. [address] [place] [phone] 10/19/2024 1:30 PM CDT Diagnostic Division of Pulmonary Medicine in [place], [place] [address] [place] [phone] Navi Motley M.D. [address] [place] [phone] 10/19/2024 4:00 PM CDT Office Visit Division of Pulmonary Medicine in [place], [place] [address] [place] [phone] Navi Motley M.D. [address] [place] [address] 11/02/2024 9:30 AM CDT Telemedicine Division of Rheumatology in [place], [place] [address] [place] [phone] Neena Espinoza APRN C.N.PSandie, D.N.P. [address] [place] [phone] documented as of this encounter Procedures Procedure Name Priority Date/Time Associated Diagnosis Comments ICD BIVENTRICULAR INTERROGATION WITH PROGRAMMING Routine 08/24/2024 8:47 AM CDT Sarcoid Myocarditis (HCC) documented in this encounter Results * ICD BIVENTRICULAR INTERROGATION WITH PROGRAMMING (08/24/2024 8:47 AM CDT) Date Time Interrogation Session [id number] [employer] Implantable Pulse Generator Coroner'S Juror Medtronic [employer] [facility] Implantable Pulse Generator Type Cardiac Resynchronization Therapy - Defibrillator [facility] Implantable Pulse Generator Model Mabel XT HF CRTD [id number] [facility] Implantable Pulse Generator Serial Number [id number] [facility] Implantable Pulse Generator Implant Date 20230704 [employer] Battery Voltage 3.010 [facility] Battery TRANSITION ADVISOR Trigger 2.800 [employer] Battery Status OK [facility] Capacitor Charge Time 3.600 [employer] Chin Statistic RA Percent Paced 42.93 [facility] Chin Statistic RV Percent Paced 0.53 [employer] [facility] SUPERVISOR FISH PROCESSING Statistic LV Percent Paced 99.35 [employer] [facility] SUPERVISOR FISH PROCESSING Statistic SUPERVISOR FISH PROCESSING Percent Paced 0.65 [employer] [facility] Atrial Tachy Statistic AT/AF Franklin Percent 0.01 [employer] [facility] Lead Channel Sensing Intrinsic Amplitude 2.900 [employer] [facility] Lead Channel Setting Sensing Sensitivity 0.30 [employer] [facility] Lead Channel Impedance Value 437 [facility] Lead Channel Pacing Threshold Amplitude 0.750 [employer] [facility] Lead Channel Pacing Threshold Pulse Width 0.4 [employer] Lead Channel Measurements Date and Time 20240824 [facility] Lead Channel Setting Pacing Amplitude 2.000 [employer] [facility] Lead Channel Setting Pacing Pulse Width 0.4 [employer] [facility] Lead Channel Sensing Intrinsic Amplitude 16.000 [facility] Lead Channel Setting Sensing Sensitivity 0.45 [facility] Lead Channel Impedance Value 361 [facility] Lead Channel Pacing Threshold Amplitude 0.750 [facility] Lead Channel Pacing Threshold Pulse Width 0.4 [facility] Lead Channel Measurements Date and Time 20240824 [facility] Lead Channel Impedance Value 703 [facility] Lead Channel Pacing Threshold Amplitude 1.500 [facility] Lead Channel Pacing Threshold Pulse Width 0.4 [facility] Lead Channel Measurements Date and Time 20240824 [facility] Lead Channel Setting Pacing Amplitude 2.750 [facility] Lead Channel Setting Pacing Pulse Width 0.4 [facility] Chin Setting Mode (NBG Code) DDDR [facility] Ventricular chambers paced during SUPERVISOR FISH PROCESSING pacing. LV [facility] Chin Setting Lower Rate Limit 60 [facility] Chin Setting AT Mode Switch Rate 150 [facility] Chin Setting Maximum Tracking Rate 130 [facility] Chin Setting Maximum Sensor Rate 130 [facility] Chin Setting PAV Delay 280 [facility] Chin Setting JUVENCIO Delay 280 [facility] Therapy Statistic Recent Shocks Aborted 0 [facility] Therapy Statistic Recent ATP Delivered 0 [facility] Murj RV HV Impedance 74 [facility] Zone Setting Type Category [...] [facility] Zone Setting Type Category AT/AF [facility] Murj Rate 1 150 [facility] Murj Therapies Burst+, Ramp, CV Off [facility] Zone Setting Status On [facility] Murj Zone ID 2 [facility] Zone Setting Type Category VT Monitor [facility] Murj Rate 1 150 [facility] Zone Setting Status Monitor F[facility] Murj Zone ID 3 [facility] Implantable Lead Coroner'S Juror Medtronic [facility] Implantable Lead Model 3830 SelectSecure MRI SureScan [facility] Implantable Lead Location Right Atrium [facility] Implantable Lead Connection Status Connected [facility] Implantable Lead Serial Number [id number] [facility] Implantable Lead Implant Date [id number] [facility] Implantable Lead Special Function Lead length: 59.00 cm [facility] Implantable Lead Coroner[employer]S Juror Medtronic [facility] Implantable Lead Model 3830 SelectSecure MRI SureScan [facility] Implantable Lead Location Left Ventricle [facility] Implantable Lead Connection Status Connected [facility] Implantable Lead Serial Number [id number] [facility] Implantable Lead Implant Date 20230704 [facility] Implantable Lead Special Function Lead length: 69.00 cm [facility] Implantable Lead Coroner'S Juror Medtronic [facility] Implantable Lead Model 6935M Sprint Quattro Secure S MRI SureScan [facility] Implantable Lead Location Right Ventricle [facility] Implantable Lead Connection Status Connected [facility] Implantable Lead Serial Number [id number] [facility] Implantable Lead Implant Date 20230704 [facility] Implantable Lead Special Function Lead length: 62.00 cm [facility] Anatomical Region Laterality Modality Echocardiography 08/25/2024 8:56 AM CDT Impressions 08/25/2024 8:56 AM CDT Encounter Impression: Title: Normal In-Office: With Events * Normal Device Function * Events or Alerts: 1 AT/AF episode * Battery: OK, 9.92 yrs * Sensing, impedance and thresholds reviewed and tested * Presenting Rhythm: AP/VS @ 84 BPM * Underlying Rhythm: SR @ 62-90 BPM w/ intermittent PAC's * Heart Rate Histograms reviewed * Pacing and Detection Parameters were evaluated Title: Appropriate AT/AF Therapy: Unsuccessful * Stored EGMs are consistent with or suggestive of AT/AF with unsuccessful therapy * Total episodes: 1 * AT Franklin: 0.01% * Number of ATP therapy: 3 sequences of Rx1 Ramp ATP therapy Title: Tachycardia: AFL w/RVR * Stored EGMs are consistent with or suggestive of Atrial Flutter with Rapid Ventricular Response with max ventricular rates up to 150 BPM lasting 2 minutes and 29 seconds that ultimately ended in self conversion after 3 unsuccessful sequences of ATP Ramp therapy. Patient reported they were not sure if they were symptomatic with this episode, though does have small episodes of feeling dizzy that happen about once a week. * AT/AF Franklin: 0.01% * Total episodes: 1 on 08/01/2024 @ 5:57 PM Plan: This patient underwent device interrogation. I agree that the device interrogation was medically indicated to provide appropriate care and continue routine device interrogations as indicated. Physician Notified: Hamilton Babcock M.D. notified via Epic Communication of new AFL w/ RVR Encounter Summary: This report includes 1 transmission that was received on 2024-08-24. Battery, lead impedance, sensing amplitude and pacing threshold data was reviewed. Narrative Procedure Note Rafael Stanton M.D. - 08/25/2024 IMPRESSION: Encounter Impression: Title: Normal In-Office: With Events * Normal Device Function * Events or Alerts: 1 AT/AF episode * Battery: OK, 9.92 yrs * Sensing, impedance and thresholds reviewed and tested * Presenting Rhythm: AP/VS @ 84 BPM * Underlying Rhythm: SR @ 62-90 BPM w/ intermittent PAC's * Heart Rate Histograms reviewed * Pacing and Detection Parameters were evaluated Title: Appropriate AT/AF Therapy: Unsuccessful * Stored EGMs are consistent with or suggestive of AT/AF withunsuccessful therapy * Total episodes: 1 * AT Franklin: 0.01% * Number of ATP therapy: 3 sequences of Rx1 Ramp ATP therapy Title: Tachycardia: AFL w/RVR * Stored EGMs are consistent with or suggestive of Atrial Flutter withRapid Ventricular Response with max ventricular rates up to 150 BPMlasting 2 minutes and 29 seconds that ultimately ended in self conversionafter 3 unsuccessful sequences of ATP Ramp therapy. Patient reported they were not sure if they weresymptomatic with this episode, though does have small episodes of feelingdizzy that happen about once a week. * AT/AF Franklin: 0.01% * Total episodes: 1 on 08/01/2024 @ 5:57 PM Plan: This patient underwent device interrogation. I agree that the deviceinterrogation was medically indicated to provide appropriate care andcontinue routine device interrogations as indicated. Physician Notified: Hamilton Babcock M.D. notified via Telesocial Communication ofnew AFL w/ RVR Encounter Summary: This report includes 1 transmission that was receivedon 2024-08-24. Battery, lead impedance, sensing amplitude and pacingthreshold data was reviewed. Ghada Perdomo APRN, C.N.P., M.S.N. CV IMPLA NTABLE CARDIAC DEVICE Final Result documented in this encounter Visit Diagnoses Diagnosis Sarcoid Myocarditis (HCC) documented in this encounter Additional Health Concerns Infection Onset Date Last Indicated Resolved Time Protective Environment 07/31/2023 07/31/2023 documented as of this encounter Care Teams Mud Mixer Operator Relationship Specialty Start Date End Date Elsewhere, Pcp PCP - General Internal Medicine 08/16/23 documented as of this encounter
--- OUTSIDE RECORDS SUMMARY | 2024-08-24 09:12 | XMS_ITS | Encounter Summary ---
Author Organization [facility] Address [address] [place] [address] Care Team Providers Care Displayer Name Role Phone Elsewhere, Pcp Primary Care Provider Unavailabl e Reason for Referral * Outpatient (Routine) - Authorized Specialty Diagnoses / Procedures Referred By Contac t Referred To Contact Diagnoses Sarcoid Myocarditis (HCC) Procedures ECG Heart rhythm monitor (Holter) Ghada Perdomo APRN, C.NCher, M.S.N. [address] [place] [phone] Phone: tel: fax: [facility] Referral ID Status Reason Start Date Expiration Date V isits Requested Visits Authorized [id number] Authorized 03/25/2024 06/25/2025 1 1 Reason for Visit * Outpatient (Routine) - Authorized Specialty Diagnoses / Procedures Referred By Contac t Referred To Contact Diagnoses Sarcoid Myocarditis (HCC) Procedures ECG Heart rhythm monitor (Holter) Ghada Perdomo APRN, C.N.Cheryl., M.S.N. [address] [place] [phone] Phone: tel: fax: [facility] Referral ID Status Reason Start Date Expiration Date V isits Requested Visits Authorized [id number] Authorized 03/25/2024 06/25/2025 1 1 Encounter Details Date Type Department Care Team (Latest Contact Info) Description 08/24/2024 9:12 AM CDT - 08/24/2024 9:32 AM CDT Hospital Encounter Department of Cardiovascular Diseases in [place], [place] [address] [place] [address] Ghada Perdomo APRN, C.N.P., M.S.N. [address] [place] [address] Sarcoid Myocarditis (HCC) Discharge Disposition: Home or Self Care Social History Tobacco Use Types Packs/Day Years Used Date Smoking Tobacco: Former Cigarettes 0.5 10 0 02/25/1994 - 02/26/2004 Passive Smoke Exposure: Past Smokeless Tobacco: Never Alcohol Use Standard Drinks/Week Comments Yes 2 (1 standard drink = 0.6 oz pur e alcohol) [facility] Utilities Answer Date Recorded In the past 12 months has e [employer], gas, oil, or water [employer] threatened to shut off services in your [...] living situation today? I have a [facility] place to live 08/19/2024 Education Answer Date Recorded What is the highest level of school you have completed or the highest degree you have received? 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 [address] [place] [phone] 10/19/2024 1:30 PM CDT Diagnostic Division of Pulmonary Medicine in [address] [phone] Navi Motley M.D. [address] [place] [phone] 10/19/2024 4:00 PM CDT Office Visit Division of Pulmonary Medicine in [address] [phone] Navi Motley M.D. [address] [place] [phone] 11/02/2024 9:30 AM CDT Telemedicine Division of Rheumatology in [address] [phone] Neena Espinoza APRN, C.N.P., D.N.P. [address] [place] [phone] documented as of this encounter Procedures Procedure Name Priority Date/Time Associated Diagnosis Comments HOLTER MONITOR - IN CLINIC MUSIC DEPARTMENT CHAIR Routine 08/25/2024 5:54 PM CDT Sarcoid Myocarditis (HCC) documented in this encounter Results * HOLTER MONITOR - IN CLINIC MUSIC DEPARTMENT CHAIR (08/25/2024 5:54 PM CDT) Min Heart Rate 61 bpm INFOB IONIC MOME Max Heart Rate 121 bpm INFOB IONIC MOME Mean Heart Rate 81 bpm INFOBIONIC MOME VE Total Beats 1484 count INFOB IONIC MOME VE Percent Beats 1 percent INFOBIONIC MOME SVE Total Beats 225 count INFOBIONIC MOME SVE Percent Beats less than 1 percent INFOBIONIC MOME AF Count 0 count INFOBIONIC MOME AF Duration 0 duration INFOBION IC MOME AF Ferdinand 0 percent INFOBIONIC MOME Symptom Count 0 count INFOBI ONIC MOME 08/24/2024 9:17 AM CDT Narrative INFOBIONIC MOME - 08/26/2024 6:03 AM CDT 1. The basic rhythm was sinus with a left bundle-branch block. Rare brief episodes of accelerated junctional rhythm were noted. The total analyzed time was 23h 13m. The heart rate varied from 61 to 121 bpm. The average HR was 81 bpm. 2. Premature ventricular complexes were noted singly, paired and in bigeminy. There were 1,484 PVCs recorded with a PVC burden of 1%. 3. Premature supraventricular complexes were noted singly and in one 3 beat atrial run with a heart rate of 153 bpm. There were 225 PACs recorded with a PAC burden of less than 1%. Junctional escape beats were noted. 4. No patient triggered events were noted. Privacy Specialist: ARIANA Keating Procedure Note Gian Stark M.D., M.P.H. - 08/26/2024 1. The basic rhythm was sinus with a left bundle-branch block. Rare briefepisodes of accelerated junctional rhythm were noted. The total analyzedtime was 23h 13m. The heart rate varied from 61 to 121 bpm. The average HRwas 81 bpm. 2. Premature ventricular complexes were noted singly, paired and inbigeminy. There were 1,484 PVCs recorded with a PVC burden of 1%. 3. Premature supraventricular complexes were noted singly and in one 3beat atrial run with a heart rate of 153 bpm. There were 225 PACs recordedwith a PAC burden of less than 1%. Junctional escape beats were noted. 4. No patient triggered events were noted. Privacy Specialist: ARIANA Keating us Agustina Callahan APRN, M.S.N. CV CARDIAC SERVICES PROCEDURES Edited Result - Final INFOBIONIC NAMOI MEDELLIN documented in this encounter Visit Diagnoses Diagnosis Sarcoid Myocarditis (HCC) documented in this encounter Additional Health Concerns Infection Onset Date Last Indicated Resolved Time Protective Environment 07/31/2023 07/31/2023 documented as of this encounter Care Teams Displayer Relationship Specialty Start Date End Date Elsewhere, Pcp PCP - General Internal Medicine 08/16/23 documented as of this encounter
--- OUTSIDE RECORDS SUMMARY | 2024-08-24 09:33 | XMS_ITS | Encounter Summary ---
Author Organization [facility] Address [address] [place] [address] Care Team Providers Care Rn New Graduate Name Role Phone Elsewhere, Pcp Primary Care Provider Unavailabl e Encounter Details Date Type Department Care Team (Latest Contact Info) Description 08/24/2024 9:33 AM CDT - 08/24/2024 10:58 AM CDT Hospital Encounter Department of Laboratory Medicine and Pathology, [facility], in [place], [place] [address] [place] [phone] Ghada Perdomo APRN, C.N.P., M.S.N. [address] [place] [phone] Impairment Cognitive Mild; Sarcoid Myocarditis (HCC) Discharge Disposition: Home or Self Care Social History Tobacco Use Types Packs/Day Years Used Date Smoking Tobacco: Former Cigarettes 0.5 10 0 02/25/1994 - 02/26/2004 Passive Smoke Exposure: Past Smokeless Tobacco: Never Alcohol Use Standard Drinks/Week Comments Yes 2 (1 standard drink = 0.6 oz pur e alcohol) [facility] Utilities Answer Date Recorded In the past [...] living situation today? I have a [facility] place to live 08/19/2024 Education Answer Date Recorded What is the highest level of school you have completed or the highest degree you have received? 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 08/23/2023 folic acid 1 mg tabletIndications :Sarcoid Myocarditis (HCC),Sarcoidosis Take 2 tablets (2 mg total) by mouth daily. 180 tablet 1 08/24/2024 ipratropium-albut Alejandra (DuoNeb) 0.5-2.5 mg/3 mL nebulizer solution Inhale 3 mL every 6 (six) hours as needed. 12/31/2023 methotrexate (TrexalL) 2.5 mg tabletIndications :Sarcoid Myocarditis (HCC),Sarcoidosis Take 8 tablets (20 mg total) by mouth once a week. 96 tablet 1 08/24/2024 metroNIDAZOLE (METROCREAM) 0.75 % cream Apply 1 [...] AM CDT Clinical Communication Virtual Review in [place], [place] 200 [place] [address] 10/19/2024 12:00 PM CDT Appointment Department of Radiology, [facility], in [place], [place] [address] [place] [phone] Navi Motley M.D. [address] [place] [phone] 10/19/2024 1:30 PM CDT Diagnostic Division of Pulmonary Medicine in [place], [place] [address] [place] [phone] Navi Motley M.D. [address] [place] [address] 10/19/2024 4:00 PM CDT Office Visit Division of Pulmonary Medicine in [place], [place] [address] [place] [phone] Navi Motley M.D. [address] [place] [address] 11/02/2024 9:30 AM CDT Telemedicine Division of Rheumatology in [place], [place] [address] [place] [phone] Neena Espinoza APRN, C.N.P., D.N.P. [address] [place] [phone] documented as of this encounter Procedures Procedure Name Priority Date/Time Associated Diagnosis Comments BETA-HYDROXYBUTYRATE, S Routine 08/24/2024 9:52 AM CDT Sarcoid Myocarditis (HCC) NT-PRO B-TYPE NATRIURETIC PEPTIDE (BNP), S Routine 08/24/2024 9:52 AM CDT Sarcoid Myocarditis (HCC) CBC WITH DIFFERENTIAL, B Routine 08/24/2024 9:52 AM CDT Sarcoid Myocarditis (HCC) C-REACTIVE PROTEIN, HIGH SENSITIVITY, S/P Routine 08/24/2024 9:52 AM CDT Sarcoid Myocarditis (HCC) TROPONIN T, 5TH GEN, P Routine 9:52 AM CDT Sarcoid Myocarditis (HCC) FOLATE, S Routine 08/24/2024 9:52 AM CDT Impairment Cognitive Mild COMPREHENSIVE METABOLIC PANEL, S/P Routine 08/24/2024 9:52 AM CDT Sarcoid Myocarditis (HCC) documented in this encounter Results * Troponin T, 5th Generation (08/24/2024 9:52 AM CDT) Pathologist [facility] Troponin T, 5th gen 10 <=10 ng/L 08/24/2024 11:23 AM CDT DTL Blood (Blood, Venous) 08/24/2024 9:52 AM CDT 08/24/2024 10:48 AM CDT Tyrone Callahan APRN.N.P., M.S.N. LAB BLOO D ADD-ON Final Result Performing Organization Address City/[facility]/ZIP Co de Phone Number [facility] [address] [place] [address] * (ABNORMAL) Beta-Hydroxybutyrate (08/24/2024 9:52 AM CDT) [facility] Beta-Hydroxybut yrate, S 0.6(H) <0.4 mmol/L 08/24/2024 11:25 AM CDT DT Blood (Blood, Venous) 08/24/2024 9:52 AM CDT 08/24/2024 10:48 AM CDT us Tyrone Callahan APRN.N.P., M.S.N. LAB BLOO D ADD-ON Final Result [facility] [address] [place] [address] * (ABNORMAL) NT-Pro B-Type Natriuretic Peptide (BNP) (08/24/2024 9:52 AM CDT) [facility] NT-Pro BNP 227(H) <=226 pg/mL 08/24/2024 11:25 AM CDT DTL Comment: NT-proBNP values less than 300 [...] absence of renal failure. Blood (Blood, Venous) 08/24/2024 9:52 AM CDT 08/24/2024 10:48 AM CDT Tyrone Callahan APRN.N.P., M.S.N. LAB BLOO D ADD-ON Final Result Performing Organization Address City/[facility]/ZIP Co de Phone Number [address] [place] [address] * (ABNORMAL) C-Reactive Protein, High Sensitivity (08/24/2024 9:52 AM CDT) C-Reactive Protein, High Sens, S >18.0(H) <2.0 mg/L 08/24/2024 11:25 AM CDT DT Comment: C-reactive protein >10 mg/L is suggestive of acute infection, active arthritis, or other inflammatory illness. Consider repeat analysis of CRP in 2-4 weeks to establish baseline value. Blood (Blood, Venous) 08/24/2024 9:52 AM CDT 08/24/2024 10:48 AM CDT Tyrone Callahan APRN.N.P., M.S.N. LAB BLOO D ADD-ON Final Result Performing Organization Address City/[facility]/ZIP Co de Phone Number [address] [place] [address] * (ABNORMAL) Comprehensive Metabolic Panel (08/24/2024 9:52 AM CDT) Potassium, S 4.1 3.6 - 5.2 mmol/L 08/24/2024 11:25 AM CDT DTL Sodium, S 138 135 - 145 mmol/L 08/24/2024 11:25 AM CDT DTL Chloride, S 100 98 - 107 mmol/L 08/24/2024 11:25 AM CDT DTL Bicarbonate, S 23 22 - 29 mmol/L 08/24/2024 11:25 AM CDT DTL Anion Gap 15 7 - 15 08/24/2024 11:25 AM CDT DTL BUN (Blood Urea Nitrogen), S 18 6 - 21 mg/dL 08/24/2024 11:25 AM CDT DTL Creatinine 1.09(H) 0.59 - 1.04 mg/dL 08/24/2024 11:25 AM CDT DTL Estimated GFR (eGFR) 58(L) >=60 mL/min/BS A 08/24/2024 11:25 AM CDT DTL Comment: Estimated GFR calculated using the 2020 CKD_EPI creatinine equation. Calcium, Total, S 9.2 8.8 - 10.2 mg/dL 08/24/2024 11:25 AM CDT DTL Glucose, S 78 70 - 140 mg/dL 08/24/2024 11:25 AM CDT DTL Protein, Total, S 6.0(L) 6.3 - 7.9 g/dL 08/24/2024 11:25 AM CDT DTL Albumin, S 4.2 3.5 - 5.0 g/dL 08/24/2024 11:25 AM CDT DTL Aspartate Aminotransferase (AST), S 23 8 - 43 U/L 08/24/2024 11:25 AM CDT DTL Alkaline Phosphatase, S 97 35 - 104 U/L 08/24/2024 11:25 AM CDT DTL Alanine Aminotransferase (ALT), S 12 7 - 45 U/L 08/24/2024 11:25 AM CDT DTL Bilirubin, Total, S 1.9(H) 0.0 - 1.2 mg/dL 08/24/2024 11:25 AM CDT DTL Blood (Blood, Venous) 08/24/2024 9:52 AM CDT 08/24/2024 10:48 AM CDT Yas Callahan APRNN.P., M.S.N. LAB BLOO D ADD-ON Final Result [facility] [address] [place] [address], [facility] DTL [facility] [address] [place] [address] * (ABNORMAL) CBC with Differential, Blood (08/24/2024 9:52 AM CDT) Pathologist [facility] Hemoglobin 11.8 11.6 - 15.0 g/dL 08/24/2024 10:45 AM CDT DTL Hematocrit 36.4 35.5 - 44.9 % 08/24/2024 10:45 AM CDT DTL Erythrocytes 4.06 3.92 - 5.13 x10(12)/L 08/24/2024 10:45 AM CDT DTL MCV 89.7 78.2 - 97.9 fL 08/24/2024 10:45 AM CDT DTL RBC Distrib Width 15.6 12.2 - 16.1 % 08/24/2024 10:45 AM CDT DTL Platelet Count 170 157 - 371 x10(9)/L 08/24/2024 10:45 AM CDT DTL Leukocytes 5.9 3.4 - 9.6 x10(9)/L 08/24/2024 10:45 AM CDT DTL Neutrophils 4.65 1.56 - 6.45 x10(9)/L 08/24/2024 10:45 AM CDT DHPM Lymphocytes 0.29(L) 0.95 - 3.07 x10(9)/L 08/24/2024 10:45 AM CDT DTL Monocytes 0.89(H) 0.26 - 0.81 x10(9)/L 08/24/2024 10:45 AM CDT DTL Eosinophils 0.06 0.03 - 0.48 x10(9)/L 08/24/2024 10:45 AM CDT DTL Basophils 0.03 0.01 - 0.08 x10(9)/L 08/24/2024 10:45 AM CDT DTL Blood (Blood, Venous) 08/24/2024 9:52 AM CDT 08/24/2024 10:21 AM CDT us Ghada Perdomo APRN, C.N.P., M.S.N. LAB BLOO D ADD-ON Final Result Performing Organization Address City/[facility]/ZIP Co de Phone Number [facility] 200 [place] [address], [facility] 200 [place] [address] [facility] 200 [place] [address] * Folate (08/24/2024 9:52 AM CDT) Folate, S >20.0 >=4.0 mcg/L 08/24/2024 11:35 AM CDT DTL Blood (Blood, Venous) 08/24/2024 9:52 AM CDT 08/24/2024 10:48 AM CDT us Ghada Perdomo APRN, C.N.P., M.S.N. LAB BLOO D ADD-ON Final Result Performing Organization Address City/[facility]/ZIP Co de Phone Number [facility] 200 [place] [address], [facility] 200 [place] [address] documented in this encounter Visit Diagnoses Diagnosis Impairment Cognitive Mild Sarcoid Myocarditis (HCC) documented in this encounter Additional Health Concerns Infection Onset Date Last Indicated Resolved Time Protective Environment 07/31/2023 07/31/2023 documented as of this encounter Care Teams Rn New Graduate Relationship Specialty Start Date End Date Elsewhere, Pcp PCP - General Internal Medicine 08/16/23 documented as of this encounter
--- OUTSIDE RECORDS SUMMARY | 2024-08-24 10:30 | XMS_ITS | Encounter Summary ---
Author Organization [facility] Address [address] [place] [address] Care Team Providers Care Process Analyst Name Role Phone Elsewhere, Pcp Primary Care Provider Unavailabl e Reason for Referral * Outpatient (Routine) - Authorized Specialty Diagnoses / Procedures Referred By Martina david Referred To Contact Rheumatology Diagnoses Sarcoid Myocarditis (HCC) Sarcoidosis Monitoring For Therapeutic Drug Therapy Neena Espinoza APRN, C.N.P., D.N.P. [address] [place] [phone] Phone: tel: fax: [facility] Referral ID Status Reason Start Date Expiration Date V isits Requested Visits Authorized [id number] Authorized 08/24/2024 02/23/2026 1 1 Scheduling Instructions 10/20 video visit at 3:30. Reason for Visit * Outpatient (Routine) - Closed Specialty Diagnoses / Procedures Referred By Martina david Referred To Contact Rheumatology Diagnoses Sarcoid Myocarditis (HCC) Sarcoidosis Monitoring For Therapeutic Drug Therapy Neena Espinoza APRN, C.N.P., D.N.P. [address] [place] [phone] Phone: tel: fax: [facility] Referral ID Status Reason Start Date Expiration Date Visits Re quested Visits Authorized [id number] Closed 03/25/2024 09/24/2025 1 1 Encounter Details Date Type Department Care Team (Latest Contact Info) Description 08/24/2024 10:30 AM CDT Office Visit Division of Rheumatology in [place], [place] [address] [place] [address] Neena Espinoza APRN, C.N.P., D.N.P. [address] [place] [phone] Sarcoid Myocarditis (HCC); Sarcoidosis; Monitoring For Therapeutic Drug Therapy Social History Tobacco Use Types Packs/Day Years Used Date Smoking Tobacco: Former Cigarettes 0.5 10 0 02/25/1994 - 02/26/2004 Passive Smoke Exposure: Past Smokeless Tobacco: Never Alcohol Use Standard Drinks/Week Comments Yes 2 (1 standard drink = 0.6 oz pur e alcohol) [facility] Utilities Answer Date Recorded In the past 12 months has e [employer], gas, oil, or water [email or web address] threatened to shut off services in your [...] have a [facility] place to live 08/19/2024 Education Answer Date Recorded What is the highest level of school you have completed or the highest degree you have received? 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 Gender Identity Female 11/22/2021 11:24 PM CDT Sexual Orientation Lesbian or Alonso 11/22/2021 11 :24 PM CDT documented as of this encounter Last Filed Vital Signs Vital Sign Reading Time Taken Comments Blood Pressure 116/77 08/24/2024 10:27 AM CDT Pulse 86 08/24/2024 10:27 AM CDT Temperature 36.7 C (98.1 F) 08/24/2024 10:27 AM CDT Respiratory Rate - - Oxygen Saturation - - Inhaled Oxygen Concentration - - Weight 103 kg (226 lb 4.8 oz) 08/24/2024 10:27 A M CDT Height 170.7 cm (5' 7.21) 08/24/2024 10:27 AM C DT Body Mass Index 35.23 08/24/2024 10:27 AM CDT documented in this encounter Progress Notes * Neena Espinoza, JESSIKA, C.N.P., D.N.P. - 08/24/2024 10:30 AM CDT SUBJECTIVE CHIEF COMPLAINT / REASON FOR VISIT Nanci Rice is a 59 y.o. female who presents for follow up of sarcoidosis. HISTORY OF PRESENT ILLNESS Ms. Rice was originally evaluated here in May [address] 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 Pulmonary sarcoidosis was biopsy-proven at an outside facility. Cardiac with a positive PET-CT and arrhythmias. She had previously been treated with prednisone and CellCept, however had been off treatment for about 6 weeks at the time of her evaluation. At that time she did have active inflammation on PET-CT and it was recommended that she resume immunosuppressive treatment with prednisone methotrexate. At the time of her follow-up here in September 2023shalethea was on methotrexate 20 mg by subcutaneous injection weekly and prednisone 5 mg daily. Cardiac PET was without active FDG uptake. The plan was to taper prednisone gradually over the next few months and continue methotrexate. In February 2024, cardiac sarcoidosis was quiescent. Pulmonary symptoms were stable. She had been off prednisone since December 2023. 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 She returns today for follow-up. She confirms that she is taking methotrexate 20 mg by mouth weeklyand folic acid 2 mg daily. She is tolerating the oral tablets. She does think she has a little bit more diarrhea, but it is manageable. The increased folic acid seems to have improved the hair thinning, at least stabilized things. She still has shortness a breath with mild activity as well as a cough. She is not really sure if these are worse or not. She was hospitalized in May for pneumonia. Her son was sick prior. She did require oxygen while she was hospitalized but not at home. Her hips, particularly the left bother her a little bit if she sits too long or if she walks too much. It is stiff for just a few sec when she initially gets up. No nighttime awakening pain. No joint swelling. No inflammatory eye or bowel symptoms. She does see a apparatus lineman annually as well as an channel program manager. Family history: No known family history of autoimmune disease. 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 Lives with , Dinorah. Adult daughter and teenage son at home. Previous Reports Reviewed:lab reports and office notes The following portions of the patient's history were reviewed and updated as appropriate: allergies, current medications, family history, medical history, social history, surgical history, and problem list. REVIEW OF SYSTEMS Pertinent positives and negatives as documented in the above history of present illness. REVIEW OF SYSTEMS OBJECTIVE PHYSICAL EXAMINATION Vitals reviewed. Constitutional Appearance: She is well-developed. HENT Mouth/Throat: Mouth: Mucous membranes are moist. Pharynx: Oropharynx is clear. Eyes Conjunctiva/sclera: Conjunctivae normal. Pupils: Pupils are equal, round, and reactive to light. Cardiovascular Rate and Rhythm: Normal rate and regular rhythm. Heart sounds: Normal heart sounds. Pulmonary Effort: Pulmonary effort is normal. Breath sounds: Normal breath sounds. Musculoskeletal Cervical back: Normal range of motion and neck supple. Comments: Mild tenderness to the glenohumeral joints but normal range of motion. No synovitis of the upper and lower extremities including hands, wrists, elbows, knees, ankles or feet bilaterally. Range of motion of the extremities are within functional limits bilaterally. Lymphadenopathy Cervical: No cervical adenopathy. Skin General: Skin is warm and dry. Comments: No rheumatic rashes noted. Neurological Mental Status: She is alert and oriented to person, place, and time. Lab: Labs from today are pending. Imaging: Cardiac PET-CT is scheduled for later this afternoon. ASSESSMENT / PLAN #1 Sarcoid Myocarditis (HCC) #2 Sarcoidosis It was a pleasure to follow-up with Ms. Rice this morning. Overall, it sounds as though she has been stable, however she still does have dyspnea with minimal exertion. No other extracardiac or extrapulmonary manifestations of sarcoidosis. Unfortunately, she has not completed cardiac PET-CT yet. She also will have chest CT and pulmonary follow-up in September. I will plan to review her cardiac PET-CT as well as Cardiology appointment which is scheduled for tomorrow to ensure we do not need to make any urgent medication changes. Otherwise, we will plan to follow-up virtually at the end of September after she has completed pulmonary testing and met with Pulmonary Medicine. For now, she will remain on methotrexate 20 mg weekly along with daily folic acid supplementation. #3 Monitoring For Therapeutic Drug Therapy Recommend CBC with differential, creatinine, AST, ALT every three months while taking methotrexate.I provided her with an updated lab letter to complete these locally between visits. I answered the patient's questions to the best of my ability. The patient seemed pleased with our interaction. If she should have any additional questions or concerns, I have asked that she contact us at that time. PATIENT EDUCATION Ready to learn, no apparent learning barriers were identified; learning preferences include listening. Explained diagnosis and treatment plan; patient expressed understanding of the content. documented in this encounter Plan of Treatment Upcoming Encounters Date Type Department Care Team (Latest Contact Info) Description 10/14/2024 11:45 AM CDT Clinical Communication Virtual Review in [place], [place] 200 [place] [phone] 10/19/2024 12:00 PM CDT Appointment Department of Radiology, [facility], in [place], [place] [address] [place] [phone] Navi Motley M.D. [address] [place] [phone] 10/19/2024 1:30 PM CDT Diagnostic Division of Pulmonary Medicine in [address] [phone] Navi Motley M.D. [address] [place] [phone] 10/19/2024 4:00 PM CDT Office Visit Division of Pulmonary Medicine in [address] [phone] Navi Motley M.D. [address] [place] [phone] 11/02/2024 9:30 AM CDT Telemedicine Division of Rheumatology in [address] [phone] Neena Espinoza APRN, C.N.P., D.N.P. [address] [place] [phone] Scheduled Referrals Name Type Priority Associated Diagnoses Orde r Schedule Rheumatology office visit (clinic) Outpatient Referral Routine Sarcoid Myocarditis (HCC) Sarcoidosis Monitoring For Therapeutic Drug Therapy Expected: 10/20/2024, Expires: 11/24/2025 documented as of this encounter Visit Diagnoses Diagnosis Sarcoid Myocarditis (HCC) Sarcoidosis Monitoring For Therapeutic Drug Therapy documented in this encounter Additional Health Concerns Infection Onset Date Last Indicated Resolved Time Protective Environment 07/31/2023 07/31/2023 documented as of this encounter Care Teams Process Analyst Relationship Specialty Start Date End Date Elsewhere, Pcp PCP - General Internal Medicine 08/16/23 documented as of this encounter
--- OUTSIDE RECORDS SUMMARY | 2024-08-24 10:59 | XMS_ITS | Encounter Summary ---
Author Organization [facility] Address [address] [place] [address] Care Team Providers Care Clarifier Operator Helper Name Role Phone Elsewhere, Pcp Primary Care Provider Unavailabl e Reason for Referral * Cardiovascular-Diagnostic (Routine) - Closed Specialty Diagnoses / Procedures Referred By Martina t Referred To Contact Diagnoses Sarcoid Myocarditis (HCC) Procedures Echo Transthoracic (TTE) Ghada Perdomo APRN, C.N.Rachana, M.S.N. [address] [place] [phone] Phone: tel: fax: [facility] Referral ID Status Reason Start Date Expiration Date Visits Re quested Visits Authorized [id number] Closed 03/25/2024 06/25/2025 1 1 Reason for Visit * Cardiovascular-Diagnostic (Routine) - Closed Specialty Diagnoses / Procedures Referred By Contac t Referred To Contact Diagnoses Sarcoid Myocarditis (HCC) Procedures Echo Transthoracic (TTE) Ghada Perdomo APRN, C.N.P., M.S.N. [address] [place] [phone] Phone: tel: fax: [facility] Referral ID Status Reason Start Date Expiration Date Visits Re quested Visits Authorized [id number] Closed 03/25/2024 06/25/2025 1 1 Encounter Details Date Type Department Care Team (Latest Contact Info) Description 08/24/2024 10:59 AM CDT - 08/24/2024 12:59 PM CDT Hospital Encounter Department of Cardiovascular Diseases in [place], [place] [address] [place] [address] Ghada Perdomo APRN, C.N.P., M.S.N. [address] [place] [address] Sarcoid Myocarditis (HCC) Discharge Disposition: Home or [...] In the past 12 months has e [employer], gas, oil, or water [employer] threatened to shut off services in your [...] your living situation today? I have a [facility] place to live 08/19/2024 Education Answer Date Recorded What is the highest level of school you have completed or the highest degree you have received? 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 [address] [place] [phone] 10/19/2024 1:30 PM CDT Diagnostic Division of Pulmonary Medicine in [address] [phone] Navi Motley M.D. [address] [place] [phone] 10/19/2024 4:00 PM CDT Office Visit Division of Pulmonary Medicine in [address] [phone] Navi Motley M.D. [address] [place] [phone] 11/02/2024 9:30 AM CDT Telemedicine Division of Rheumatology in [address] [phone] Neena Espinoza, JESSIKA, C.N.P., D.N.P. [address] [place] [phone] documented as of this encounter Procedures Procedure Name Priority Date/Time Associated Diagnosis Comments (TTE) 2D ECHO DOPPLER COLOR Routine 08/24/2024 1:06 PM CDT Sarcoid Myocarditis (HCC) documented in this encounter Results * (TTE) 2D ECHO DOPPLER COLOR (08/24/2024 1:06 PM CDT) Ejection Fraction 58 MC CV EIMS Sinus of Valsalva 40 MC CV EIMS LV End-Diastolic Volume 151 MC CV EIMS LV End-Systolic Volume 64 MC CV EIMS MV E Velocity 0.6 MC CV EIMS MV A Velocity 1 MC CV EIMS MV E/A 0.6 MC CV EIMS MV e' Velocity Medial 0.06 MC CV EIMS MV E/e' Medial 10 MC CV EIMS Left ventricular stroke volume index 45 MC CV EIMS Cardiac Output 5.97 MC CV EIMS Cardiac Index 2.79 MC CV EIMS LV Global Longitudinal Strain -21 MC CV EIMS Tricuspid Annular S 0.12 MC CV EIMS TR Vmax 2.68 MC CV EIMS Estimated RA Pressure (Echo RAP) 5 MC CV EIMS RV Systolic Pressure (with Echo RAP) 34 MC CV EIMS AV mean gradient 4 MC CV EIMS Aortic valve area 3.41 MC CV EIMS Aortic Valve Dimensionless Index 0.7 MC CV EIMS MV mean gradient 1 MC CV EIMS Aortic Valve Systolic Peak Velocity 1.5 MC CV EIMS Anatomical Region Laterality Modality Echocardiography 08/24/2024 11:5 4 AM CDT Impressions 08/24/2024 2:06 PM CDT Echocardiogram performed per sarcoidosis protocol. Last full echocardiogram performed 03/23/2024. LEFT VENTRICLE:Normal left ventricular chamber size. Normal left ventricular wall thickness. Calculated 2-D biplane volumetric left ventricular ejection fraction of 58% without the use of ultrasound enhancing agent. Strain imaging examination performed to assess left ventricular function. Global averaged left ventricular longitudinal peak systolic strain is normal at -21% (normal = more negative than -18%). Abnormal ventricular septal motion due to pacing without other regional wall motion abnormalities. Grade 1/3 left ventricular diastolic dysfunction, consistent with low to normal left ventricular filling pressure. RIGHT VENTRICLE:Normal right ventricular chamber size by visual estimate. Normal right ventricular systolic function. Right ventricular strain assessment was performed but not reported based on sales person's judgment. Estimated right ventricular systolic pressure 34 mmHg (right atrial pressure of 5 mmHg). ATRIA:Enlarged left atrial size by visual estimate. Normal right atrial size by visual estimate. CARDIAC VALVES:Sclerotic aortic valve. No aortic valve regurgitation. Thickened mitral valve. Severely calcified mitral annulus and subvalvular apparatus. Mitral valve diastolic mean Doppler gradient 1 mmHg (heart rate 51 BPM). Mild-moderate mitral valve regurgitation. Normal tricuspid valve. Trivial tricuspid valve regurgitation. OTHER ECHO FINDINGS:Enlarged sinus of Valsalva diameter of 40 mm. Upper limit of normal of the sinus of Valsalva for age, sex and BSA is 39 mm. The sinus of Valsalva dimension indexed to height is 2.3 cm/m. Normal inferior vena cava size with normal inspiratory collapse (>50%). No intracardiac mass or thrombus, but the left atrial appendage cannot be visualized adequately with transthoracic echo to exclude thrombus in this location. No pericardial effusion. Device lead (s) identified in right atrium and right ventricle. For the complete report, see the Order-Level Documents. Narrative 08/24/2024 2:06 PM CDT For the complete report, see the Order-Level Documents. Hemodynamics Heart Rate: 62 BPM Blood Pressure: 130 / 63 mmHg ECG: Pacemaker Final Impressions 1. Echocardiogram performed per sarcoidosis protocol. 2. Normal left ventricular chamber size, calculated 2-D biplane volumetric ejection fraction of 58%, global averaged longitudinal peak systolic strain is normal at -21% (normal = more negative than -18%) . Abnormal septal and apical motion due to pacing without other regional wall motion abnormalities. Grade 1/3 diastolic dysfunction. 3. Severely calcified mitral annulus and subvalvular apparatus without significant obstruction to left ventricular inflow. [id number]-[id number] central regurgitation. 4. Normal right ventricular chamber size, normal systolic function, estimated right ventricular systolic pressure 34 mmHg (right atrial pressure of 5 mmHg). 5. Enlarged sinus of Valsalva diameter of 40 mm, upper limit of normal for age, sex and BSA is 39 mm, the sinus of Valsalva dimension indexed to height is 2.3 cm/m. 6. No pericardial effusion. 7. Compared to the report of 03/23/2024 no significant change has occurred. Procedure Note Lilian Jiang M.D. - 08/24/2024 For the complete report, see the Order-Level Documents. Hemodynamics Heart Rate: 62 BPM Blood Pressure: 130 / 63 mmHg ECG: Pacemaker Final Impressions 1. Echocardiogram performed per sarcoidosis protocol. 2. Normal left ventricular chamber size, calculated 2-D biplane volumetricejection fraction of 58%, global averaged longitudinal peak systolicstrain is normal at - 21% (normal = more negative than -18%) . Abnormalseptal and apical motion due to pacing without other regional wall motionabnormalities. Grade 1/3 diastolic dysfunction. 3. Severely calcified mitral annulus and subvalvular apparatus withoutsignificant obstruction to left ventricular inflow. Ztub-or-ymakftzljqmnqzf regurgitation. 4. Normal right ventricular chamber size, normal systolic function,estimated right ventricular systolic pressure 34 mmHg (right atrialpressure of 5 mmHg). 5. Enlarged sinus of Valsalva diameter of 40 mm, upper limit of normal forage, sex and BSA is 39 mm, the sinus of Valsalva dimension indexed toheight is 2.3 cm/m. 6. No pericardial effusion. 7. Compared to the report of 03/23/2024 no significant change hasoccurred. Findings Echocardiogram performed per sarcoidosis protocol. Last fullechocardiogram performed 03/23/2024. LEFT VENTRICLE:Normal left ventricular chamber size. Normal leftventricular wall thickness. Calculated 2-D biplane volumetric leftventricular ejection fraction of 58% without the use of ultrasoundenhancing agent. Strain imaging examination performed to assess leftventricular function. Global averaged left ventricular longitudinal peaksystolic strain is normal at -21% (normal = more negative than - 18%).Abnormal ventricular septal motion due to pacing without other regionalwall motion abnormalities. Grade 1/3 left ventricular diastolicdysfunction, consistent with low to normal left ventricular fillingpressure. RIGHT VENTRICLE:Normal right ventricular chamber size by visual estimate.Normal right ventricular systolic function. Right ventricular strainassessment was performed but not reported based on sales person's judgment.Estimated right ventricular systolic pressure 34 mmHg (right atrialpressure of 5 mmHg). ATRIA:Enlarged left atrial size by visual estimate. Normal right atrialsize by visual estimate. CARDIAC VALVES:Sclerotic aortic valve. No aortic valve regurgitation.Thickened mitral valve. Severely calcified mitral annulus and subvalvularapparatus. Mitral valve diastolic mean Doppler gradient 1 mmHg (heart rate51 BPM). Mild-moderate mitral valve regurgitation. Normal tricuspid valve.Trivial tricuspid valve regurgitation. OTHER ECHO FINDINGS:Enlarged sinus of Valsalva diameter of 40 mm. Upperlimit of normal of the sinus of Valsalva for age, sex and BSA is 39 mm.The sinus of Valsalva dimension indexed to height is 2.3 cm/m. Normalinferior vena cava size with normal inspiratory collapse (>50%). Nointracardiac mass or thrombus, but the left atrial appendage cannot bevisualized adequately with transthoracic echo to exclude thrombus in thislocation. No pericardial effusion. Device lead (s) identified in rightatrium and right ventricle. For the complete report, see the Order-Level Documents. Ghada Perdomo APRN C.N.P., M.S.N. CV ECHO PROCEDURES Final Result documented in this encounter Visit Diagnoses Diagnosis Sarcoid Myocarditis (HCC) documented in this encounter Additional Health Concerns Infection Onset Date Last Indicated Resolved Time Protective Environment 07/31/2023 07/31/2023 documented as of this encounter Care Teams Clarifier Operator Helper Relationship Specialty Start Date End Date Elsewhere, Pcp PCP - General Internal Medicine 08/16/23 documented as of this encounter
--- OUTSIDE RECORDS SUMMARY | 2024-08-24 13:00 | XMS_ITS | Encounter Summary ---
Author Organization [facility] Address [address] [place] [address] Care Team Providers Care Civil Lawyer Name Role Phone Elsewhere, Pcp Primary Care Provider Unavailabl e Reason for Referral * Outpatient (Routine) - Closed Specialty Diagnoses / Procedures Referred By Martina david Referred To Contact Diagnoses Sarcoid Myocarditis (HCC) Procedures PET CT Cardiac Sarcoid Ghada Perdomo APRN, C.NCher, M.S.N. [address] [place] [phone] Phone: tel: fax: [facility] Referral ID Status Reason Start Date Expiration Date Visits Re quested Visits Authorized [id number] Closed 03/25/2024 06/25/2025 1 1 Reason for Visit * Outpatient (Routine) - Closed Specialty Diagnoses / Procedures Referred By Martina david Referred To Contact Diagnoses Sarcoid Myocarditis (HCC) Procedures PET CT Cardiac Sarcoid Ghada Perdomo APRN, C.N.Cheryl., M.S.N. [address] [place] [phone] Phone: tel: fax: [facility] Referral ID Status Reason Start Date Expiration Date Visits Re quested Visits Authorized [id number] Closed 03/25/2024 06/25/2025 1 1 Encounter Details Date Type Department Care Team (Latest Contact Info) Description 08/24/2024 1:00 PM CDT - 08/24/2024 11:59 PM CDT Hospital Encounter Department of Radiology, [facility], in [place], [place] [address] [place] [address] Ghada Perdomo APRN, C.N.P., M.S.N. [address] [place] [address] Sarcoid Myocarditis (HCC) Discharge Disposition: Home or Self Care Social History Tobacco Use Types Packs/Day Years Used Date Smoking Tobacco: Former Cigarettes 0.5 10 0 02/25/1994 - 02/26/2004 Passive Smoke Exposure: Past Smokeless Tobacco: Never Alcohol Use Standard Drinks/Week Comments Yes 2 (1 standard drink = 0.6 oz pur e alcohol) [facility] Utilities Answer Date Recorded In the past 12 months has e [employer], gas, oil, or water [email or web address] threatened to shut off services in your [...] Master's degree (e.g., MA, MS, Arti, MEd, RESERVATIONS CLERK, [employer]) 11/22/2021 Comments Unknown Sex and Gender Information Value Date Recorded Sex Assigned at Female 11/22/2021 11:24 PM CDT 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 [address] [place] [phone] 10/19/2024 1:30 PM CDT Diagnostic Division of Pulmonary Medicine in [address] [phone] Navi Motley M.D. [address] [place] [phone] 10/19/2024 4:00 PM CDT Office Visit Division of Pulmonary Medicine in [address] [phone] Navi Motley M.D. [address] [place] [phone] 11/02/2024 9:30 AM CDT Telemedicine Division of Rheumatology in [address] [phone] Neena Espinoza APRN, C.N.P., D.N.P. [address] [place] [phone] documented as of this encounter Procedures Procedure Name Priority Date/Time Associated Diagnosis Comments PET CT CARDIAC SARCOID RAD - Routine (most inpatients and all outpatients) 08/24/2024 3:46 PM CDT Sarcoid Myocarditis (HCC) documented in this encounter Results * PET CT Cardiac Sarcoid (08/24/2024 3:46 PM CDT) 08/24/2024 1:11 PM CDT Narrative CV MERGE - 08/24/2024 4:14 PM CDT See PDF For Result Procedure Note Jose Rafael Villarreal M.D. - 08/24/2024 See PDF For Result us Ghada Perdomo APRN, C.N.P., M.S.N. [facility] Final Result CV MERGE NA documented in this encounter Visit Diagnoses Diagnosis Sarcoid Myocarditis (HCC) documented in this encounter Administered Medications Inactive Administered Medications - up to 3 most recent administrations Medication Order MAR Action Action Date Dose Rate Site ammonia N 13 injection CORRECTION (N-13 ammonia) 9-16.5 millicurie, intravenous, Once, On 08/24/24 at 1430, For 1 dose, Imaging Protocol Orders Given 08/24/2024 2:00 PM CDT 12.81 millicuries Left Antecubital fludeoxyglucose F 18 injection CORRECTION (F-18 FDG) 9-16.5 millicurie, intravenous, Once, On 08/24/24 at 1445, For 1 dose, Imaging Protocol Orders Given 08/24/2024 2:13 PM CDT 15.54 millicuries Left Antecubital documented in this encounter Additional Health Concerns Infection Onset Date Last Indicated Resolved Time Protective Environment 07/31/2023 07/31/2023 documented as of this encounter Care Teams Civil Lawyer Relationship Specialty Start Date End Date Elsewhere, Pcp PCP - General Internal Medicine 08/16/23 documented as of this encounter
--- OUTSIDE RECORDS SUMMARY | 2024-08-25 14:00 | XMS_ITS | Encounter Summary ---
Author Organization [facility] Address [address] [place] [id number] Care Team Providers Care Railroad Crane Operator Name Role Phone Elsewhere, Pcp Primary Care Provider Unavailabl e Reason for Referral * Outpatient (Routine) - Authorized Specialty Diagnoses / Procedures Referred By Contac t Referred To Contact Cardiovascular Disease Eliu Javier M.D. [address] [place] [address] Phone: tel: fax: [facility] Referral ID Status Reason Start Date Expiration Date V isits Requested Visits Authorized [id number] Authorized 08/25/2024 02/24/2026 1 1 Scheduling Instructions All in 1 year please * Outpatient (Routine) - Authorized Specialty Diagnoses / Procedures Referred By Contac t Referred To Contact Diagnoses Sarcoid Myocarditis (HCC) Procedures ECG 12 Lead GA EKG 12 LEAD W I&R Eliu Javier M.D. [address] [place] [address] Phone: tel: fax: [facility] Referral ID Status Reason Start Date Expiration Date V isits Requested Visits Authorized [id number] Authorized 08/25/2024 11/25/2025 1 1 * Outpatient (Routine) - Pending Review Specialty Diagnoses / Procedures Referred By Contac t Referred To Contact Diagnoses Sarcoid Myocarditis (HCC) Procedures PET CT Cardiac Sarcoid Eliu Javier M.D. [address] [place] [address] Phone: tel: fax: [facility] Referral ID Status Reason Start Date Expiration Date V isits Requested Visits Authorized [id number] Pending Review 08/25/2024 11/25/2025 1 1 * Cardiovascular-Diagnostic (Routine) - Pending Review Specialty Diagnoses / Procedures Referred By Martina david Referred To Contact Diagnoses Sarcoid Myocarditis (HCC) Procedures Echo Transthoracic (TTE) Eliu Javier M.D. [address] [place] [phone] Phone: tel: fax: [facility] Referral ID Status Reason Start Date Expiration Date V isits Requested Visits Authorized [id number] Pending Review 08/25/2024 11/25/2025 1 1 Reason for Visit * Outpatient (Routine) - Closed Specialty Diagnoses / Procedures Referred By Martina david Referred To Contact Cardiovascular Disease Ghada Perdomo APRN, C.N.P., M.S.N. [address] [place] [address] Phone: tel: fax: [facility] Referral ID Status Reason Start Date Expiration Date Visits Re quested Visits Authorized [id number] Closed 03/25/2024 09/24/2025 1 1 Encounter Details Date Type Department Care Team (Latest Contact Info) Description 08/25/2024 2:00 PM CDT Telemedicine Department of Cardiovascular Medicine in [place], [place] [address] [place] [phone] Eliu Javier M.D. [address] [place] [phone] Sarcoid Myocarditis (HCC) (Primary Dx) Social History Tobacco Use Types Packs/Day Years Used Date Smoking Tobacco: Former Cigarettes 0.5 10 0 02/25/1994 - 02/26/2004 Passive Smoke Exposure: Past Smokeless Tobacco: Never Alcohol Use Standard Drinks/Week Comments Yes 2 (1 standard drink = 0.6 oz pur e alcohol) [facility] Utilities Answer Date Recorded In [...] your living situation today? I have a [facility] place to live 08/19/2024 Education Answer Date Recorded What is the highest level of school you have completed or the highest degree you have received? 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 - 08/25/2024 2:00 PM CDT SUBJECTIVE CHIEF COMPLAINT / REASON FOR VISIT Nanci Rice is a 59 y.o. 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 HISTORY OF PRESENT ILLNESS Prior To Current Consultation: In reviewing the prior history of the patient was first evaluated by [facility] Cardiac sarcoid Clinic in 2022. There was a known history of biopsy-proven pulmonary sarcoidosis (September 2021). There is a history of complete heart block, PA arrest (June 2023) ultimately AICD implant (June 2024). Of note the patient began to have dyspnea and proximally 2018 ultimately endobronchial biopsy confirmed sarcoidosis. She was initially on CellCept. Outside MRI showed abnormal delayed enhancement (as below). Sarcoid imaging here (as noted below) showed no active inflammatory myocardial disease. During her last visit with us (February 2024) she was seen by both Cardiology and rheumatology and the plan was to continue her on methotrexate (transitioning from subacute to oral). Prior Imaging: Cardiac sarcoid scan (08/20/2023): Small inferior perfusion defect in mid ventricle with no FDG uptake. Cardiac sarcoid scan (03/16/2024): Mild LV enlargement with very small perfusion abnormality in the mid inferior wall. LVEF 66%. No FDG uptake. Holter monitor (03/25/2024): 1% PVC burden Transthoracic echocardiogram (03/23/2024): Borderline LV enlargement no regional as. LVEF 65%. Normal RV size and function. Ascending aorta 41 mm. Pukc-qd-byrvmzrz mitral valve regurgitation Cardiac MRI (10/12/2021, outside): Normal LV size with EF 60 60%. Mid wall delayed enhancement the basal anterior septum. CURRENT CONSULTATION: A. Clinical: Mrs. Rice overall has felt well but does note some dyspnea with exertion as well as cough. B. Testing/Consults Laboratory study show hemoglobin 11.8 with platelet count of 170 and leukocyte count 5.9. Sodium 138 potassium 4.1. Creatinine baseline 1.09. Troponin lower 10. CRP elevated to greater than team. BNPhas decreased to 227. Brain scan was obtained for headaches. This was unremarkable. Echo shows normal LV size with EF 58%and normal strain. Severe calcified mitral annulus the significant obstruction [id number] MR.Normal RV size and function. Sinus Valsalva at 40 mm. No change from prior. Sarcoid scan shows small perfusion defect without any abnormal FDG uptake, no change from prior. Our rheumatology colleagues saw her implant on follow-up in September once pulmonary testing was complete. They we are going to continue her on methotrexate. OBJECTIVE VITAL SIGNS There were no vitals taken for this visit. PHYSICAL EXAMINATION General: Virtual visit ASSESSMENT / PLAN IMPRESSION: Nanci Rice is a 59 y.o. 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 #1 Probable cardiac sarcoidosis with no evidence of active inflammation. #2 Biopsy-proven pulmonary sarcoidosis (September 2021) #3 Could complete heart block and PA arrest status post AICD (June 2023) #4 SVT status post ablation (January 2022) and failed PVC ablation #5 Incidental finding of 2 minutes 29 seconds of atrial flutter on device interrogation (08/2024) #6 Calcified mitral annulus with [id number] mitral valve regurgitation Cardiovascular and related pertinent medications: Folic acid, metoprolol, methotrexate It was a pleasure meeting with Mrs. Rice. Given stability of PET scan lack of inflammation we will not need to repeat sarcoid scan until another year. These orders have been placed. I did discuss with our EP team the short run of atrial flutter. They recommended monitoring for now particularly given low CHADS2 Vasc score. Of note AI ECG negative for silent AFib. Regards to her dyspnea she is planning to meet with the pulmonary team. This might be pulmonary sarcoid particularly given the increased cough. She has denied orthopnea or PND. If her pulmonary workup was negative or does not help her symptoms that we can consider treatment for heart failure preserved ejection fraction and/or testing for that (such as a stress echo). I think she is at some risk with that particularly given her mitral annular calcification. PLAN: Cardiac sarcoid assessment in one year's time. If dyspnea persists despite pulmonary evaluation consider stress echo to look for E/E prime and/or empirical treatment for heart failure preserved ejection fraction documented in this encounter Plan of Treatment Upcoming Encounters Date Type Department Care Team (Latest Contact Info) Description 10/14/2024 11:45 AM CDT Clinical Communication Virtual Review in [address] [phone] 10/19/2024 12:00 PM CDT Appointment Department of Radiology, [facility], in [address] [phone] Navi Motley M.D. [address] [place] [phone] 10/19/2024 1:30 PM CDT Diagnostic Division of Pulmonary Medicine in [address] [phone] Navi Motley M.D. [address] [place] [phone] 10/19/2024 4:00 PM CDT Office Visit Division of Pulmonary Medicine in [address] [phone] Navi Motley M.D. [address] [place] [phone] 11/02/2024 9:30 AM CDT Telemedicine Division of Rheumatology in [address] [phone] Neena Espinoza, JESSIKA, C.N.P., D.N.P. [address] [place] [phone] Scheduled Orders Name Type Priority Associated Diagnoses Order Schedule Echo Transthoracic (TTE) Echocardiography Routine Sarcoid Myocarditis (HCC) Expected: 08/25/2025, Expires: 11/25/[address] Cardiac Sarcoid Cardiac Services RAD - Routine (most inpatients and all outpatients) Sarcoid Myocarditis (HCC) Expected: 08/25/2025, Expires: 11/25/2025 Beta-Hydroxybutyrat e Lab Routine Sarcoid Myocarditis (HCC) Expected: 08/25/2025, Expires: 11/25/2025 ECG 12 Lead ECG Routine Sarcoid Myocarditis (HCC) Expected: 08/25/2025, Expires: 11/25/2025 Cardiac Device Interrogation Implantable Cardiac Device Routine Sarcoid Myocarditis (HCC) Expected: 08/25/2025, Expires: 11/25/2025 Troponin T, 5th Generation Lab Routine Sarcoid Myocarditis (HCC) Expected: 08/25/2025, Expires: 08/25/2025 C-Reactive Protein, High Sensitivity Lab Routine Sarcoid Myocarditis (HCC) Expected: 08/25/2025, Expires: 08/25/2025 AST (Aspartate Aminotransferase) Lab Routine Sarcoid Myocarditis (HCC) Expected: 08/25/2025, Expires: 08/25/2025 ALT (Alanine Aminotransferase) Lab Routine Sarcoid Myocarditis (HCC) Expected: 08/25/2025, Expires: 08/25/2025 Alkaline Phosphatase Lab Routine Sarcoid Myocarditis (HCC) Expected: 08/25/2025, Expires: 08/25/2025 NT-Pro B-Type Natriuretic Peptide (BNP) Lab Routine Sarcoid Myocarditis (HCC) Expected: 08/25/2025, Expires: 08/25/2025 CBC with Differential, Blood Lab Routine Sarcoid Myocarditis (HCC) Expected: 08/25/2025, Expires: 08/25/2025 Comprehensive Metabolic Panel Lab Routine Sarcoid Myocarditis (HCC) Expected: 08/25/2025, Expires: 08/25/2025 Scheduled Referrals Name Type Priority Associated Diagnoses Order Schedule Cardiovascular Disease office visit (clinic) [facility]; Sarcoid Outpatient Referral Routine Expected: 08/25/2025, Expires: 11/25/2025 documented as of this encounter Visit Diagnoses Diagnosis Sarcoid Myocarditis (HCC)- Primary documented in this encounter Additional Health Concerns Infection Onset Date Last Indicated Resolved Time Protective Environment 07/31/2023 07/31/2023 documented as of this encounter Care Teams Railroad Crane Operator Relationship Specialty Start Date End Date Elsewhere, Pcp PCP - General Internal Medicine 08/16/23 documented as of this encounter
--- OUTSIDE RECORDS SUMMARY | 2024-08-26 08:00 | XMS_ITS | Encounter Summary ---
Author Organization [facility] Address [address] [place] [phone] Care Team Providers Care Mailing Clerk Name Role Phone Elsewhere, Pcp Primary Care Provider Unavailabl e Reason for Referral * Behavioral Health (Routine) - Pending Review Specialty Diagnoses / Procedures Referred By Martina david Referred To Contact Psychology / Psychiatry and Psychology Diagnoses Impairment Cognitive Mild Cardiac Arrest Due To Underlying Cardiac Condition (HCC) Procedures PSY Neuropsychology testing Ramon Taylor Jr., M.D. [address] [place] [phone] Phone: tel: fax: [facility] Referral ID Status Reason Start Date Expiration Date V isits Requested Visits Authorized [id number] Pending Review 08/26/2024 11/26/2025 1 1 Reason for Visit * Outpatient (Routine) - Closed Specialty Diagnoses / Procedures Referred By Martina david Referred To Contact Neurology Diagnoses Impairment Cognitive Mild Ghada Perdomo APRN, C.N.P., M.S.N. [address] [place] [phone] Phone: tel: fax: [facility] Referral ID Status Reason Start Date Expiration Date Visits Re quested Visits Authorized [id number] Closed 03/25/2024 09/24/2025 1 1 Encounter Details Date Type Department Care Team (Latest Contact Info) Description 08/26/2024 8:00 AM CDT Comprehensive Visit Department of Neurology in [place], [place] [address] [place] [phone] Ghada Perdomo APRN, C.NSandieP., M.S.N. 200 [place] [phone] Ramon Taylor Jr., M.D. 200 [place] [phone] Impairment Cognitive Mild (Primary Dx); Cardiac Arrest Due To Underlying Cardiac Condition (HCC) Social History Tobacco Use Types Packs/Day Years Used Date Smoking Tobacco: Former Cigarettes 0.5 10 0 02/25/1994 - 02/26/2004 Passive Smoke Exposure: Past Smokeless Tobacco: Never Alcohol Use Standard Drinks/Week Comments Yes 2 (1 standard drink = 0.6 oz pur e alcohol) [facility] Utilities Answer Date Recorded In the past 12 months has [facility] [employer], gas, oil, or water [employer] threatened to shut off services in your [...] money to buy more. 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 - 08/26/2024 8:00 AM CDT SUBJECTIVE Referring Provider: Ghada Perdomo APRN, C.N.P., M.S.N. CHIEF COMPLAINT /REASON FOR VISIT Nanci Rice is a 59 y.o. female who presents for evaluation of 1. Impairment Cognitive Mild . HISTORY OF PRESENT ILLNESS Mrs. Nanci Rice is a 59 year old female with history of migraines, anxiety, rosacea, pulmonary and cardiac sarcoidosis, and urm-ag-vuhhbgcd cardiac arrest (06/2023) who presents with memory concerns. She is accompanied by her spouse and provided additional history. She be in noticing concerned with her memory after her cardiac arrest in June of 2023. She describeslosing a few weeks of memory prior to the cardiac arrest and approximately 1 week post cardiac arrest. Since the cardiac arrest, she has noted increased difficulty with short-term memory and word searching. She feels these symptoms have been stable over the last 6 months but have not returned back to her prior. She also noted changes in her motion ability and distractibility. 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 In regards to retention, she notes times where she loses track of what she is doing for approximately 15 minutes of time. She has compensated by increasing her note taking and different strategiesfor her memory. She denies any changes to her daily activities of living and has not noticed any episodes of inability to navigate or forgetting where she is while driving. She does endorse some ongoing life stressors and emotionally processing the trauma of her cardiac arrest and returning back to normal life. 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 She notes no deficits in her sermon besides possibly taking longer to write the manuscript. She notes the most deficits with relationship building and forgetting things her religion might have told her which does impact some of her day-to-day life. She gave an example of being in a large group discussion few days prior to presentation and they were all describing different funerals they had given over the past month and she was unable to recall the name of the person she had provided the services for which was distressing for her. She had no memory concerns prior to cardiac arrest. Patient denies No headache, no seizures, no gait disturbances, no balance issues, no depth perception issues, no neuropathy, no confusion/delirium. She does endorse some episodes of dizziness but have been stable and been attributed to cardiac issues. No changes in her medications recently and she continues on methotrexate for her sarcoidosis. She does use Seroquel for anxiety that has been prescribed by family medicine for over 20 years. I have reviewed outside records for this visit. I have directly reviewed imaging studies for this visit. The following portions of the patient's history were reviewed and updated as appropriate: allergies, current medications, family history, medical history, social history, surgical history and problemlist. Medical History[1] Current Outpatient Medications Medication Instructions azelaic acid (Finacea) 15 % gel 1 Application, As needed cholecalciferol (VITAMIN D3) 800 Units, Daily famotidine (PEPCID) 40 mg, oral, 2 times daily folic acid 2 mg, oral, Daily ipratropium-albuteroL (DuoNeb) 0.5-2.5 mg/3 mL nebulizer solution 3 mL, Every 6 hours PRN methotrexate (TREXALL) 20 mg, oral, Weekly metoprolol succinate (TOPROL XL) 50 mg, oral, 2 times daily metroNIDAZOLE (METROCREAM) 0.75 % cream 1 Application, Daily mometasone/formoterol (DULERA INHL) 1 Inhalation, 2 times daily nebulizer accessories kit Nebulizer, neb kit, neb cup and mask. Medication: albuterol. For home use. Length of need for Medicare patients: 99 nortriptyline (PAMELOR) 20 mg, Daily at bedtime nystatin (Mycostatin) 100,000 unit/mL suspension 5 mL, As needed potassium chloride (Klor-Con M) 20 mEq ER tablet 1 tablet, Daily QUEtiapine (SEROQUEL) 25 mg, Daily at bedtime Family History[2] Social History Socioeconomic History Marital status: Spouse name: Not on file Number of children: Not on file Years of education: Not on file Highest education level: Master's degree (e.g., MA, MS, Arti, MEd, SUPPORT ENGINEER, GALA) Occupational History Not on file Tobacco Use Smoking status: Former Current packs/day: 0.00 Average packs/day: 0.5 packs/day for 10.0 years (5.0 ttl pk-yrs) Types: Cigarettes Start date: 02/25/1994 Quit date: 02/26/2004 Years since quittin.5 Passive exposure: Past Smokeless tobacco: Never Vaping Use Vaping status: never used Substance and Sexual Activity Alcohol use: Yes Alcohol/week: 2.0 standard drinks of alcohol Types: 2 Standard drinks or equivalent per week Drug use: Never Sexual activity: Yes Partners: Female control/protection: None Comment: Lesbianism. And menopause. Other Topics Concern Not on file Social History Narrative Not on file Social Drivers of Health Food Insecurity: No Food Insecurity (08/19/2024) Hunger Vital Sign Worried About Running Out of Food in the Last Year: Never true Ran Out of Food in the Last Year: Never true Transportation Needs: No Transportation Needs (08/19/2024) PRAPARE - Transportation Lack of Transportation (Medical): No Lack of Transportation (Non-Medical): No Intimate Partner Violence: Not At Risk (11/22/2021) Humiliation, Afraid, Rape, and Kick questionnaire Fear of Current or Ex-Partner: No Emotionally Abused: No Physically Abused: No Sexually Abused: No Housing Stability: Low Risk (08/19/2024) Housing Stability Housing: Living Situation: I have a steady place to live Ten point review of systems was completed and was negative other than as noted in the HPI. OBJECTIVE I have reviewed vital signs as recorded in the EPIC record. Neurologic: Mental status: Alert and oriented to time, place and person Speech: Clear. Language: No evidence of aphasia. (Naming, reading, repetition and comprehension areintact.) Cranial nerves: PERRL, EOMI, visual skinner intact to confrontation, facial movements full and symmetric, sensation intact to light touch in the V1-V3 distributions, hearing intact to voice, tongue protrudes in midline, there is equal elevation of the soft palate, shoulder shrug is appropriate in strength. Motor: Bilateral upper and lower extremity strength evaluated including: (R, L) deltoids (0,0), biceps (0,0), triceps (0,0), wrist extension (0,0), finger extension (0,0), interossei (0,0), iliopsoas(0,0), knee flexion (0,0), knee extension (0,0), ankle dorsiflexion (0,0), toe extension (0,0). Tone is normal in bilateral upper and lower extremities. Reflexes: biceps (0,0), triceps (0,0), brachioradialis (0,0), patellar (0,0) and Achilles (0,0). Plantar flexor responses are flexor-flexor. Gait: Appropriate width, normal arm swing, and speed. Narrow stance. Normal step size. Normal toe, heel and tandem walking. Turns without shuffling. [place] Assessment of Mental Status: Orientation: 10/02 (name, address, building, city, state, day, month, year) Attention: 08/31 ([id number], [id number], [id number]) Learning/immediate Recall: / (apple, Mr. Bro, efrain, tunnel) Calculation: 05/29 (5x13,65-7,58/2,29+11) Abstraction/similarities: 3/ (orange/banana, dog/horse, table/bookcase) Information: / (president, 1st president, weeks/year, define island) Construction: 05/29 (copy cube, clock 11:10) Recall: 05/29 (words from above) Total: 38/38 Previous Kokmen: none ASSESSMENT / PLAN #1 Mild Cognitive Impairment #2 Prior cardiac arrest #3 Sarcoidosis Nanci Rice is a 59 y.o. female who presents for evaluation of memory loss. Her subjective symptoms seem to be following her cardiac arrest and presumed anoxic brain injury. On exam today, symptoms not could not be elicited on the short test of mental status exam and her physical exam was overall reassuring. She does note that these symptoms are impacting her life and work, so it would be reasonable to proceed with neuro psych testing for further evaluation and a baseline exam for future. We provided reassurance regarding her MRI scan that was performed showing 5th percentile hippocampal size. While this was noted, it is hard to determine whether this is her baseline and a normal variant versus acquired after cardiac arrest or other etiology. In regards to future follow up and further testing, we discussed different blood tests that could be offered for further evaluation including neurofilament light chain and P tau testing. After describing the utility of each test, she wanted to proceed with NfL testing to see if there is ongoing neuronal damage which we would not expect with her being 1 year from cardiac arrest. We did provide that these testings are often nonspecific. Overall, her exam is very reassuring and she is now a year from cardiac arrest. We are more than happy to see her back in clinic if further concerns arise. We will follow up in NfL and neuro psych testing. PLAN: - Neurofilament light chain level - Neuropsychology testing for baseline PATIENT EDUCATION: Ready to learn, no apparent learning barriers were identified; learning preferences include listening. Explained diagnosis and treatment plan; patient expressed understanding of the content. Alize Rm Neurology, PGY2 Pager: [phone] This patient was discussed and seen with waitstaff captain Dr. Taylor. [1] Past Medical History: Diagnosis Date Anxiety Generalized Disorder 2006. Controlled by Rx Arrest Cardiac (HCC) 06/29/2023 Candidiasis Oral 08/23/2023 Cardiac Arrhythmia NOS 2016 Depressive Disorder Intermittent over the years. Currently not a problem. Gallbladder Disorder 2009 Gastroesophageal Reflux Disease NOS Maybe 8 years ago? Later another doctor said no. 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 Functioning at 40% at age 85. Ulcerative colitis Father Ramiro Colon polyps Father Ramiro Lung cancer Maternal Grandmother Elizabeth Coronary artery disease Paternal Grandfather Salazar Breast cancer Paternal Grandmother Yenny Diabetes Paternal Grandmother Yenny * Ramon Taylor Jr., M.D. - 08/26/2024 8:00 AM CDT SUBJECTIVE CHIEF COMPLAINT / REASON FOR VISIT Nanci Rice is a 59 y.o. right handed female who presents for evaluation of cognitive symptoms after cardiac arrest Referred by Ghada Perdomo APRN, C.N.P., M.S.N. HISTORY OF PRESENT ILLNESS Ms. 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 Javier from Cardiology for evaluation of memory concerns following cardiac arrest. The patient has a history of cardiac sarcoidosis, and unfortunately had cardiac arrest June 29, 2023,with loss of consciousness. Her next memory is about a week later, and she had been resuscitated, intubated, and had complete heart block that was subsequently treated. She recovered with significant emotional and memory difficulty at the beginning which improved. She, however, has residual symptoms of cognitive difficulty that is relatively mild. She has word-searching difficulty. She has difficulty sometimes directing her attention on the phone and will sometimes lose the progress of her train of thought. She has some trouble with prior memories. She gives an example where she performed a for a family about a month earlier and could not remember the details of the or the family's names who were involved, which was unusualfor her. 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 She has been somewhat geographically challenged much of her life, but is not having trouble with getting lost and can find places with some guidance. She sometimes will lose track of her thought. She will have more difficulty remembering what happened last week than she does remembering from yesterday. She notes that there was a reduced filter in her behavior, particularly after the event which is improved but still remains less than in the past. Her , who is with her, notes that she has some difficulty with missed memories and they have had discussions about things that happened 10 years ago that she insisted were one way when they were incorrect. The patient is on methotrexate for her cardiac sarcoidosis with folate supplementation. She has also been started on metoprolol. She has been on long-standing quetiapine and is also taking nortriptyline. The quetiapine dose has not changed recently. She had concerns because of the MRI scan that was performed. It was normal, but hippocampal volumeswere measured and her hippocampal volume was noted to be in the 5th percentile. I saw the patient with Dr. Rm who performed significant parts of the neurologic examination under observation. The following portions of the patient's history were reviewed and updated as appropriate: allergies, current medications, family history, medical history, social history, surgical history, and problem list. REVIEW OF SYSTEMS: Neurological: Positive for loss of consciousness. AICD implant June 2023 OBJECTIVE PHYSICAL EXAM For details of the neurologic examination, please see the neurologic examination form. Short test of mental status score was normal. 38/38 Gait and station are normal. Heel and toe walking are performed with normal strength. Tandem gait was normal. Extraocular movements were normal. There was no nystagmus. Pupillary light reflexes were normal. Lower cranial nerve motor function was normal. Direct muscle strength testing, sensory examination, reflexes, and coordination testing were symmetric and normal. Details are given in the electronic neurological form. ASSESSMENT / PLAN 1. Mild subjective cognitive symptoms after cardiac arrest and presumed anoxic brain insult There are not really signs of an overt neurocognitive deficit on the short test of mental status togo along with the patient's subjective symptoms and emotional complaints. That said her functioningseems to be essentially normal but there is inefficiency is in some domains. They seem to escape the short test evaluation. There are no associated neurological signs on physical examination. I reassured her that her MRI scan was normal. The small hippocampal volumes may be lifelong, and are uncertain as to prognosis given there are no comparisons available. We talked about doing a few tests. First I think measuring NfL in the blood and finding a normal result would be reassuring that there is no ongoing insult with regards to brain injury. I told her this has a very nonspecific test and if abnormal will not be valuable for understanding cause. She would like to proceed with this testing. I also talked about [id number] testing as a marker for early evidence of Alzheimer's pathology, and after discussion she decided to defer doing that testing. I do think it would be helpful to carry out neuropsychometric tests both from a occupational perspective, and also to serve as a benchmark for future reference should there be decline in the future. I told the patient I suspect that her current state of functioning is her new normal, in we would not expect future deterioration on the basis of the prior cardiac arrest. I answered questions by thepatient and her . 72 minutes total PATIENT EDUCATION Ready to learn, no apparent learning barriers were identified; learning preferences include listening. Explained diagnosis and treatment plan; patient expressed understanding of the content. documented in this encounter Plan of Treatment Upcoming Encounters Date Type Department Care Team (Latest Contact Info) Description 10/14/2024 11:45 AM CDT Clinical Communication Virtual Review in [place], [place] 200 [place] [phone] 10/19/2024 12:00 PM CDT Appointment Department of Radiology, [facility], in [place], [place] [address] [place] [phone] Navi Motley M.D. [address] [place] [phone] 10/19/2024 1:30 PM CDT Diagnostic Division of Pulmonary Medicine in [address] [phone] Navi Motley M.D. [address] [place] [phone] 10/19/2024 4:00 PM CDT Office Visit Division of Pulmonary Medicine in [place], [place] [address] [place] [phone] Navi Motley M.D. [address] [place] [phone] 11/02/2024 9:30 AM CDT Telemedicine Division of Rheumatology in [place], [place] [address] [place] [phone] Neena Espinoza APRN, C.N.P., D.N.P. [address] [place] [phone] documented as of this encounter Results * Neurofilament Light Chain (08/26/2024 9:32 AM CDT) [facility] Neurofilament Light Chain, P 19.8 < or = 28.8 pg/mL 08/26/2024 2:18 PM CDT [facility] Comment: As of 2024, [facility] has updated the Neurofilament Light Chain (NfL) methodology. If patient is undergoing serial monitoring of NfL levels, rebaselining by requesting that this sample also be run on the previous assay method for comparison purposes is recommended. Rebaseline of this sample at no charge will be available until 04/23/2025 and the rebaseline result will be added to this report. Contact [facility] at to request this service. For [place] patients, call [phone]. ----ADDITIONAL INFORMATION---- The testing method is a chemiluminescent enzyme immunoassay for the quantitative determination of NfL in plasma manufactured by [employer] and performed on the [employer] analyzer. Values obtained with different methods may be different and cannot be used interchangeably. This test was developed and its performance characteristics determined by [facility] in a manner consistent with CLIA requirements. It has not been cleared by the [place] Food and Drug Administration. Blood (Blood, Venous) 08/26/2024 9:32 AM CDT 08/26/2024 1:25 PM CDT us Ramon Taylor Jr., M.D. LAB BLOOD NON ADD-ON F inal Result [facility] [address] [place] [address] [facility] [address] [place] [address] documented in this encounter Visit Diagnoses Diagnosis Impairment Cognitive Mild- Primary Cardiac Arrest Due To Underlying Cardiac Condition (HCC) documented in this encounter Additional Health Concerns Infection Onset Date Last Indicated Resolved Time Protective Environment 07/31/2023 07/31/2023 documented as of this encounter Care Teams Mailing Clerk Relationship Specialty Start Date End Date Elsewhere, Pcp PCP - General Internal Medicine 08/16/23 documented as of this encounter
--- OUTSIDE RECORDS SUMMARY | 2024-08-26 09:10 | XMS_ITS | Encounter Summary ---
Author Organization [facility] Address [address] [place] [address] Care Team Providers Care Managing Cognitive Engineer Name Role Phone Elsewhere, Pcp Primary Care Provider Unavailabl e Encounter Details Date Type Department Care Team (Latest Contact Info) Description 08/26/2024 9:10 AM CDT - 08/26/2024 11:59 PM CDT Hospital Encounter Department of Laboratory Medicine and Pathology, [facility] in [place], [place] [address] [place] [address] Ramon Taylor Jr., M.D. [address] [place] [address] Impairment Cognitive Mild Discharge Disposition: Home or [...] the past 12 months has [facility] [employer], gas, oil, or water [facility] threatened to shut off services in your [...] [facility] to live 08/19/2024 Education Answer Date Recorded What is the highest level of school you have completed or the highest degree you have received? Master's degree (e.g., MA, MS, Arti, MEd, GREEN HIDE INSPECTOR, GALA) 11/22/2021 Comments Unknown Sex and Gender Information Value Date Recorded Sex Assigned at Female 11/22/2021 11:24 PM CDT Legal Sex Female 8:39 AM PETROPHYSICIST Gender Identity Female 11/22/2021 11:24 PM CDT [...] AM CDT Clinical Communication Virtual Review in [place], [place] 200 [place] [address] 10/19/2024 12:00 PM CDT Appointment Department of Radiology, [facility], in [place], [place] [address] [place] [phone] Navi Motley M.D. [address] [place] [phone] 10/19/2024 1:30 PM CDT Diagnostic Division of Pulmonary Medicine in [place], [place] [address] [place] [phone] Navi Motley M.D. [address] [place] [address] 10/19/2024 4:00 PM CDT Office Visit Division of Pulmonary Medicine in [place], [place] [address] [place] [phone] Navi Motley M.D. [address] [place] [phone] 11/02/2024 9:30 AM CDT Telemedicine Division of Rheumatology in [place], [place] [address] [place] [phone] Neena Espinoza APRN, C.N.P., D.N.P. [address] [place] [phone] documented as of this encounter Procedures Procedure Name Priority Date/Time Associated Diagnosis Comments NEUROFILAMENT LIGHT CHAIN, P Routine 08/26/2024 9:32 AM CDT Impairment Cognitive Mild documented in this encounter Results * Neurofilament Light Chain (08/26/2024 9:32 AM CDT) Neurofilament Light Chain, P 19.8 < or = 28.8 pg/mL 08/26/2024 2:18 PM CDT [facility] Comment: As of 2024, [facility] has updated the Neurofilament Light Chain (NfL) methodology. If patient is undergoing serial monitoring of NfL levels, rebaselining by requesting that this sample also be run on the previous assay method for comparison purposes is recommended. Rebaseline of this sample at no charge will be available until 04/23/2025 and the rebaseline result will be added to this report. Contact [facility] at to request this service. For [place] patients, call [phone]. ----ADDITIONAL INFORMATION---- The testing method is a chemiluminescent enzyme immunoassay for the quantitative determination of NfL in plasma manufactured by [employer] and performed on the Lumipulse analyzer. Values obtained with different methods may be different and cannot be used interchangeably. This test was developed and its performance characteristics determined by [facility] in a manner consistent with CLIA requirements. It has not been cleared by the [place] Food and Drug Administration. Blood (Blood, Venous) 08/26/2024 9:32 AM CDT 08/26/2024 1:25 PM CDT Ramon Taylor Jr., M.D. LAB BLOOD NON ADD-ON F inal Result [facility] [address] [place] [address] [facility] [address] [place] [address] documented in this encounter Visit Diagnoses Diagnosis Impairment Cognitive Mild documented in this encounter Additional Health Concerns Infection Onset Date Last Indicated Resolved Time Protective Environment 07/31/2023 07/31/2023 documented as of this encounter Care Teams Managing Cognitive Engineer Relationship Specialty Start Date End Date Elsewhere, Pcp PCP - General Internal Medicine 08/16/23 documented as of this encounter
--- OUTSIDE RECORDS SUMMARY | 2024-08-31 12:36 | XMS_ITS | Encounter Summary ---
Author Organization [facility] Address [address] [place] [address] Care Team Providers Care Auto Roller Name Role Phone Elsewhere, Pcp Primary Care Provider Unavailabl e Encounter Details Date Type Department Care Team (Late st Contact Info) Description 08/27/2024 Documentation Department of Neurology in [place], [place] [address] [place] [phone] Ramon Taylor Jr., M.D. [address] [place] [phone] Social History Tobacco Use Types Packs/Day Years Used Date Smoking Tobacco: Former Cigarettes 0.5 10 0 02/25/1994 - 02/26/2004 Passive Smoke Exposure: Past Smokeless Tobacco: Never Alcohol Use Standard Drinks/Week Comments Yes 2 (1 standard drink = 0.6 oz pur e alcohol) [facility] Utilities Answer Date Recorded In the past 12 months has [facility] [employer], gas, oil, or water [employer] threatened to shut off services in your [...] your living situation today? I have a [facility] place to live 08/19/2024 Education Answer Date Recorded What is the highest level of school you have completed or the highest degree you have received? Master's degree (e.g., MA, MS, Arti, MEd, ANODE BUILDER, GALA) 11/22/2021 Comments Unknown Sex and Gender Information Value Date Recorded Sex Assigned at Female 11/22/2021 11:24 PM CDT Legal Sex Female 8:39 AM PAROLE OFFICER Gender Identity Female 11/22/2021 11:24 PM CDT Sexual Orientation Lesbian or Alonso 11/22/2021 11 :24 PM CDT documented as of this encounter Progress Notes * Ramon Taylor Jr., M.D. - 08/27/2024 11:46 AM CDT Neurofilament light chain levels are normal. I think this has reassuring that there is not ongoing progressive neuronal injury. I hope the patient finds this reassuring. documented in this encounter Plan of Treatment Upcoming Encounters Date Type Department Care Team (Latest Contact Info) Description 10/14/2024 11:45 AM CDT Clinical Communication Virtual Review in [address] [phone] 10/19/2024 12:00 PM CDT Appointment Department of Radiology, [facility], in [place], [place] [address] [place] [phone] Navi Motley M.D. [address] [place] [phone] 10/19/2024 1:30 PM CDT Diagnostic Division of Pulmonary Medicine in [place], [place] [address] [place] [phone] Navi Motley M.D. [address] [place] [phone] 10/19/2024 4:00 PM CDT Office Visit Division of Pulmonary Medicine in [place], [place] [address] [place] [phone] Navi Motley M.D. [address] [place] [phone] 11/02/2024 9:30 AM CDT Telemedicine Division of Rheumatology in [place], [place] [address] [place] [phone] Neena Espinoza APRN, C.N.P., D.N.P. [address] [place] [phone] documented as of this encounter Visit Diagnoses Not on filedocumented in this encounter Additional Health Concerns Infection Onset Date Last Indicated Resolved Time Protective Environment 07/31/2023 07/31/2023 documented as of this encounter Care Teams Auto Roller Relationship Specialty Start Date End Date Elsewhere, Pcp PCP - General Internal Medicine 08/16/23 documented as of this encounter
--- OUTSIDE RECORDS SUMMARY | 2024-08-31 12:36 | XMS_ITS | Encounter Summary ---
Author Organization [facility] Address [address] [place] [address] Care Team Providers Care Ground Layer Name Role Phone Elsewhere, Pcp Primary Care Provider Unavailabl e Reason for Visit * Reason Onset Date Comments New A-flutter w/ RVR 08/24/2024 Encounter Details Date Type Department Care Team (Latest Contact Info) Description 08/24/2024 Clinical Communication Department of Cardiovascular Diseases in [place], [place] [address] [place] [address] Leoncio Hernandez R.N. [address] [place] [phone] New A-flutter w/ RVR Social History Tobacco Use Types Packs/Day Years Used Date Smoking Tobacco: Former Cigarettes 0.5 10 0 02/25/1994 - 02/26/2004 Passive Smoke Exposure: Past Smokeless Tobacco: Never Alcohol Use Standard Drinks/Week Comments Yes 2 (1 standard drink = 0.6 oz pur e alcohol) [facility] Utilities Answer Date Recorded In the past 12 months has [employer] gas, oil, or water [email or web address] threatened to shut off services in your [...] your living situation today? I have a [facility] place to live 08/19/2024 Education Answer Date Recorded What is the highest level of school you have completed or the highest degree you have received? Master's degree (e.g., MA, MS, Arti, MEd, ANALYTICS LEAD, GALA) 11/22/2021 Comments Unknown Sex and Gender Information Value Date Recorded Sex Assigned at Female 11/22/2021 11:24 PM CDT Legal Sex Female 8:39 AM GEOSPATIAL SCIENTIST Gender Identity Female 11/22/2021 11:24 PM CDT Sexual Orientation Lesbian or Alonso 11/22/2021 11 :24 PM CDT documented as of this encounter Miscellaneous Notes * Telephone Encounter - Leoncio Hernandez R.N. - 08/24/2024 8:50 AM CDT Laureen, I saw Nanci for her device interrogation and had not seen that she had previously had a-fib/aflutter in the past. She had one episode on 08/01/2024 of what appears to show Atrial Flutter with Rapid Ventricular Response with max ventricular rates up to 150 BPM lasting 2 minutes and 29 seconds that ultimately ended in self conversion after 3 unsuccessful sequences of ATP Ramp therapy. Patient reported they were not sure if they were symptomatic with this episode, though does have small episodes offeeling dizzy that happen about once a week. Patient is not anticoagulated. I hope this information helps. Thanks. Electronically signed by: Leoncio Hernandez R.N. 08/24/24 8:52 AM CDT documented in this encounter Plan of Treatment Upcoming Encounters Date Type Department Care Team (Latest Contact Info) Description 10/14/2024 11:45 AM CDT Clinical Communication Virtual Review in [address] [phone] 10/19/2024 12:00 PM CDT Appointment Department of Radiology, [facility], in [address] [phone] Navi Motley M.D. [address] [place] [phone] 10/19/2024 1:30 PM CDT Diagnostic Division of Pulmonary Medicine in [address] [phone] Navi Motley M.D. [address] [place] [phone] 10/19/2024 4:00 PM CDT Office Visit Division of Pulmonary Medicine in [address] [phone] Navi Motley M.D. [address] [place] [phone] 11/02/2024 9:30 AM CDT Telemedicine Division of Rheumatology in [address] [phone] Neena Espinoza, JESSIKA, C.N.P., D.N.P. [address] [place] [phone] documented as of this encounter Visit Diagnoses Not on filedocumented in this encounter Additional Health Concerns Infection Onset Date Last Indicated Resolved Time Protective Environment 07/31/2023 07/31/2023 documented as of this encounter Care Teams Ground Layer Relationship Specialty Start Date End Date Elsewhere, Pcp PCP - General Internal Medicine 08/16/23 documented as of this encounter
--- OUTSIDE RECORDS SUMMARY | 2024-08-31 12:36 | XMS_ITS | Encounter Summary ---
Author Organization [facility] Address [address] [place] [address] Care Team Providers Care Embossing Tool Setter Name Role Phone Elsewhere, Pcp Primary Care Provider Unavailabl e Reason for Visit * Reason Onset Date Comments Pre-visit Testing Orders 08/19/2024 Krissy garber about MRI Encounter Details Date Type Department Care Team (Latest Contact Info) Description 08/19/2024 Clinical Communication Department of Neurology in [place], [place] [address] [place] [phone] Ramon Taylor Jr., M.D. [address] [place] [phone] Pre-visit Testing Orders (Question about MRI) Social History Tobacco Use Types Packs/Day Years Used Date Smoking Tobacco: Former Cigarettes 0.5 10 0 02/25/1994 - 02/26/2004 Passive Smoke Exposure: Past Smokeless Tobacco: Never Alcohol Use Standard Drinks/Week Comments Yes 2 (1 standard drink = 0.6 oz pur e alcohol) [facility] Utilities Answer Date Recorded In the past 12 months has [facility] [employer], gas, oil, or water [email or web address] threatened to shut off services in your [...] your living situation today? I have a [facility] place to live 08/19/2024 Education Answer Date Recorded What is the highest level of school you have completed or the highest degree you have received? Master's degree (e.g., MA, MS, Arti, MEd, WAREHOUSE ORDER FILLER, GALA) 11/22/2021 Comments Unknown Sex and Gender Information Value Date Recorded Sex Assigned at Female 11/22/2021 11:24 PM CDT Legal Sex Female 8:39 AM MEDICAL ADMINISTRATIVE SPECIALIST Gender Identity Female 11/22/2021 11:24 PM CDT Sexual Orientation Lesbian or Alonso 11/22/2021 11 :24 PM CDT documented as of this encounter Plan of Treatment Upcoming Encounters Date Type Department Care Team (Latest Contact Info) Description 10/14/2024 11:45 AM CDT Clinical Communication Virtual Review in [place], [place] 200 [place] [phone] 10/19/2024 12:00 PM CDT Appointment Department of Radiology, [facility], in [place], [place] [address] [place] [phone] Navi Motley M.D. [address] [place] [phone] 10/19/2024 1:30 PM CDT Diagnostic Division of Pulmonary Medicine in [place], [place] [address] [place] [phone] Navi Motley M.D. [address] [place] [phone] 10/19/2024 4:00 PM CDT Office Visit Division of Pulmonary Medicine in [place], [place] [address] [place] [phone] Navi Motley M.D. [address] [place] [phone] 11/02/2024 9:30 AM CDT Telemedicine Division of Rheumatology in [place], [place] [address] [place] [phone] Neena Espinoza APRN, C.N.P., D.N.P. [address] [place] [phone] documented as of this encounter Visit Diagnoses Not on filedocumented in this encounter Additional Health Concerns Infection Onset Date Last Indicated Resolved Time Protective Environment 07/31/2023 07/31/2023 documented as of this encounter Care Teams Embossing Tool Setter Relationship Specialty Start Date End Date Elsewhere, Pcp PCP - General Internal Medicine 08/16/23 documented as of this encounter
--- OUTSIDE RECORDS SUMMARY | 2024-08-31 12:36 | XMS_ITS | Encounter Summary ---
Author Organization [facility] Address [address] [place] [address] Care Team Providers Care Racker Octave Board Name Role Phone Elsewhere, Pcp Primary Care Provider Unavailabl e Reason for Visit * Reason Onset Date Comments Follow-up 08/19/2024 Encounter Details Date Type Department Care Team (Latest Contact Info) Description 08/19/2024 Clinical Communication Department of Cardiovascular Diseases in [place], [place] [address] [place] [address] Addy Wetzel, RSandieN. [address] [place] [address] Follow-up Social History Tobacco Use Types Packs/Day Years Used Date Smoking Tobacco: Former Cigarettes 0.5 10 0 02/25/1994 - 02/26/2004 Passive Smoke Exposure: Past Smokeless Tobacco: Never Alcohol Use Standard Drinks/Week Comments Yes 2 (1 standard drink = 0.6 oz pur e alcohol) [facility] Utilities Answer Date Recorded In the past 12 months has [facility] [employer], gas, oil, or water [employer] threatened to shut off services in [...] your living situation today? I have a [facility] place to live 08/19/2024 Education Answer Date Recorded What is the highest level of school you have completed or the highest degree you have received? Master's degree (e.g., MA, MS, Arti, MEd, CLOTHES SHAKER, GALA) 11/22/2021 Comments Unknown Sex and Gender Information Value Date Recorded Sex Assigned at Female 11/22/2021 11:24 PM CDT Legal Sex Female 8:39 AM CALIBRATION CHECKER Gender Identity Female 11/22/2021 11:24 PM CDT Sexual Orientation Lesbian or Alonso 11/22/2021 11 :24 PM CDT documented as of this encounter Miscellaneous Notes * Telephone Encounter - Addy Wetzel RSandieN. - 08/19/2024 10:26 AM CDT SUBJECTIVE CHIEF COMPLAINT / REASON FOR CALL Follow-up Information Discussed Patient was given diet instructions for PET cardiac sarcoid scan. PLAN Disposition/Recommendation: follow up Information/Education: patient/caller able to teach back Caller agreeable to plan of care: yes The following references were used: none documented in this encounter Plan of Treatment Upcoming Encounters Date Type Department Care Team (Latest Contact Info) Description 10/14/2024 11:45 AM CDT Clinical Communication Virtual Review in [place], [place] [address] [place] [phone] 10/19/2024 12:00 PM CDT Appointment Department of Radiology, [facility], in [place], [place] [address] [place] [phone] Navi Motley M.D. [address] [place] [phone] 10/19/2024 1:30 PM CDT Diagnostic Division of Pulmonary Medicine in [place], [place] [address] [place] [phone] Navi Motley M.D. [address] [place] [phone] 10/19/2024 4:00 PM CDT Office Visit Division of Pulmonary Medicine in [place], [place] [address] [place] [phone] Navi Motley M.D. [address] [place] [phone] 11/02/2024 9:30 AM CDT Telemedicine Division of Rheumatology in [place], [place] [address] [place] [phone] Neena Espinoza APRN, C.N.P., D.N.P. [address] [place] [phone] documented as of this encounter Visit Diagnoses Not on filedocumented in this encounter Additional Health Concerns Infection Onset Date Last Indicated Resolved Time Protective Environment 07/31/2023 07/31/2023 documented as of this encounter Care Teams Racker Octave Board Relationship Specialty Start Date End Date Elsewhere, Pcp PCP - General Internal Medicine 08/16/23 documented as of this encounter
--- OUTSIDE RECORDS SUMMARY | 2024-08-31 12:36 | XMS_ITS | Encounter Summary ---
Author Organization [facility] Address [address] [place] [address] Care Team Providers Care Aircraft Accessories Mechanic Name Role Phone Elsewhere, Pcp Primary Care Provider Unavailabl e Encounter Details Date Type Department Care Team (Latest Contact Info) Description 08/21/2024 Clinical Communication Department of Cardiovascular Medicine in [place], [place] [address] [place] [address] Eliu Javier M.D. [address] [place] [address] Social History Tobacco Use Types Packs/Day Years Used Date Smoking Tobacco: Former Cigarettes 0.5 10 0 02/25/1994 - 02/26/2004 Passive Smoke Exposure: Past Smokeless Tobacco: Never Alcohol Use Standard Drinks/Week Comments Yes 2 (1 standard drink = 0.6 oz pur e alcohol) [facility] Utilities Answer Date Recorded In the past 12 months has [facility] [employer], gas, oil, or water [email or web address] threatened to shut off services in your [...] living situation today? I have a [facility] place to live 08/19/2024 Education Answer Date Recorded What is the highest level of school you have completed or the highest degree you have received? Master's degree (e.g., MA, MS, Arti, MEd, TOOL TROUBLE SHOOTER, GALA) 11/22/2021 Comments Unknown Sex and Gender Information Value Date Recorded Sex Assigned at Female 11/22/2021 11:24 PM CDT Legal Sex Female 8:39 AM SPECIAL EDUCATION SECRETARY Gender Identity Female 11/22/2021 11:24 PM CDT Sexual Orientation Lesbian or Alonso 11/22/2021 11 :24 PM CDT documented as of this encounter Miscellaneous Notes * Telephone Encounter - Dorcas Stein - 08/21/2024 9:35 AM CDT Laureen Pt having all testing on 08/24 . Pt wondering Can your appt on 08/25 be virtual? Thanks Dorcas. documented in this encounter Plan of Treatment Upcoming Encounters Date Type Department Care Team (Latest Contact Info) Description 10/14/2024 11:45 AM CDT Clinical Communication Virtual Review in [address] [phone] 10/19/2024 12:00 PM CDT Appointment Department of Radiology, [facility] in [place], [place] [address] [place] [address] Navi Motley M.D. [address] [place] [phone] 10/19/2024 1:30 PM CDT Diagnostic Division of Pulmonary Medicine in [place], [place] [address] [place] [address] Navi Motley M.D. [address] [place] [phone] 10/19/2024 4:00 PM CDT Office Visit Division of Pulmonary Medicine in [place], [place] [address] [place] [phone] Navi Motley M.D. [address] [place] [phone] 11/02/2024 9:30 AM CDT Telemedicine Division of Rheumatology in [place], [place] [address] [place] [address] Neena Espinoza APRN, C.N.P., D.N.P. [address] [place] [phone] documented as of this encounter Visit Diagnoses Not on filedocumented in this encounter Additional Health Concerns Infection Onset Date Last Indicated Resolved Time Protective Environment 07/31/2023 07/31/2023 documented as of this encounter Care Teams Aircraft Accessories Mechanic Relationship Specialty Start Date End Date Elsewhere, Pcp PCP - General Internal Medicine 08/16/23 documented as of this encounter
--- OUTSIDE RECORDS SUMMARY | 2024-08-31 12:37 | XMS_ITS | Encounter Summary ---
Author Organization [facility] Address [address] [place] [id number] Care Team Providers Care Mattress Weaver Name Role Phone Elsewhere, Pcp Primary Care Provider Unavailabl e Encounter Details Date Type Department Care Team (Latest Contact Info) Description 08/07/2024 Clinical Communication Department of Cardiovascular Medicine in [place], [place] [address] [place] [address] Hamilton Babcock M.D. [address] [place] [address] Social History Tobacco Use Types Packs/Day Years Used Date Smoking Tobacco: Former Cigarettes 0.5 10 0 02/25/1994 - 02/26/2004 Passive Smoke Exposure: Past Smokeless Tobacco: Never Alcohol Use Standard Drinks/Week Comments Yes 2 (1 standard drink = 0.6 oz pur e alcohol) [facility] Utilities Answer Date Recorded In the past 12 months has [facility] [employer], gas, oil, or water [employer] threatened to shut off services in your [...] your living situation today? I have a [facility] place to live 03/30/2023 Education Answer Date Recorded What is the highest level of school you have completed or the highest degree you have received? Master's degree (e.g., MA, MS, Arti, MEd, [employer], [employer]) 11/22/2021 Comments Unknown Sex and Gender Information Value Date Recorded Sex Assigned at Female 11/22/2021 11:24 PM CDT Legal Sex Female 8:39 AM ABA TUTOR Gender Identity Female 11/22/2021 11:24 PM CDT Sexual Orientation Lesbian or Alonso 11/22/2021 11 :24 PM CDT documented as of this encounter Plan of Treatment Upcoming Encounters Date Type Department Care Team (Latest Contact Info) Description 10/14/2024 11:45 AM CDT Clinical Communication Virtual Review in [place], [place] [address] [place] [address] 10/19/2024 12:00 PM CDT Appointment Department of Radiology, [facility], in [place], [place] [address] [place] [phone] Navi Motley M.D. [address] [place] [phone] 10/19/2024 1:30 PM CDT Diagnostic Division of Pulmonary Medicine in [place], [place] [address] [place] [phone] Navi Motley M.D. [address] [place] [address] 10/19/2024 4:00 PM CDT Office Visit Division of Pulmonary Medicine in [place], [place] [address] [place] [phone] Navi Motley M.D. [address] [place] [phone] 11/02/2024 9:30 AM CDT Telemedicine Division of Rheumatology in [place], [place] [address] [place] [address] Neena Espinoza APRN, C.N.P., D.N.P. [address] [place] [phone] documented as of this encounter Visit Diagnoses Not on filedocumented in this encounter Additional Health Concerns Infection Onset Date Last Indicated Resolved Time Protective Environment 07/31/2023 07/31/2023 documented as of this encounter Care Teams Mattress Weaver Relationship Specialty Start Date End Date Elsewhere, Pcp PCP - General Internal Medicine 08/16/23 documented as of this encounter
--- OUTSIDE RECORDS SUMMARY | 2024-08-31 12:37 | XMS_ITS | Clinical Summary ---
Author Organization [facility] Address [address] [place] [address] Care Team Providers Care Solidworks Mechanical Designer Name Role Phone Elsewhere, Pcp Primary Care Provider Unavailabl e Source Comments Patient records contain information from all sites at [facility]. For routine questions regarding patient records, call [phone] during business hours, M-F 8:00 AM - 5:00 PM Central Time. Record requests for emergency care only can be directed to [phone] at any time.[facility] Allergies Active Allergy Reactions Criticality Noted Date Comments Sulfa (Sulfonamide Antibiotics) Nausea And Vomiting 01/30/2021 Medications * This document contains information received from the source organization and may not represent a complete record from that organization. nortriptyline (PAMELOR) 10 mg capsule Take 20 mg by mouth at bedtime. 05/23/19 22 Active QUEtiapine (SEROquel) 25 mg tablet Take 25 mg by mouth at bedtime. 05/23/19 22 Active metroNIDAZOLE (METROCREAM) 0.75 % cream Apply 1 Application topically daily. 06/06/19 23 Active cholecalciferol (Vitamin D3) 10 mcg (400 Unit) tablet Take 800 Units by mouth daily. Active nystatin (Mycostatin) 100,000 unit/mL suspension Take 5 mL by mouth as needed. 02/04/20 23 Active potassium chloride (Klor-Con M) 20 mEq ER tablet Take 1 tablet by mouth daily. 08/12/19 24 Active metoprolol succinate (Toprol XL) 50 mg 24 hr tablet Take 1 tablet (50 mg total) by mouth 2 (two) times a day. 180 tablet 3 08/21/19 24 Active famotidine (Pepcid) 40 mg tabletIndicatio ns:Gastroesopha geal Reflux Disease Without Esophagitis Take 1 tablet (40 mg total) by mouth 2 (two) times a day. 08/23/19 Active Additional Information Patient taking differently:40 mg oralDaily, Reported on 08/20/2024 mometasone/form oterol (DULERA INHL) Inhale 1 Inhalation 2 (two) times a day. Active nebulizer accessories kit Nebulizer, neb kit, neb cup and mask. Medication: albuterol. For home use. Length of need for Medicare patients: 99 12/31/19 Active ipratropium-alb uteroL (DuoNeb) 0.5-2.5 mg/3 mL nebulizer solution Inhale 3 mL every 6 (six) hours as needed. 12/31/19 24 Active azelaic acid (Finacea) 15 % gel Apply 1 Application topically as needed. 06/17/19 Active methotrexate (TrexalL) 2.5 mg tabletIndicatio ns:Sarcoid Myocarditis (HCC),Sarcoidos is Take 8 tablets (20 mg total) by mouth once a week. 96 tablet 1 08/25/19 25 Active folic acid 1 mg tabletIndicatio ns:Sarcoid Myocarditis (HCC),Sarcoidos is Take 2 tablets (2 mg total) by mouth daily. 180 tablet 1 08/25/19 25 Active calcium carbonate 1,250 mg (500 mg calcium) chewable tablet Chew 1,250 mg daily with breakfast. 025 Discontinu ed(Discont inued by another clinician) folic acid 1 mg tabletIndicatio ns:Sarcoid Myocarditis (HCC),Sarcoidos is Take 2 tablets (2 mg total) by mouth daily. 180 tablet 1 03/25/19 25 025 Discontinu ed(Reorder ) methotrexate (TrexalL) 2.5 mg tabletIndicatio ns:Sarcoid Myocarditis (HCC),Sarcoidos is Take 8 tablets (20 mg total) by mouth once a week. 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 Date Type Department Care Team Description 08/27/2024 Documentation Department of Neurology in [place], [place] [address] [place] [phone] Ramon Taylor Jr., M.D. 08/26/2024 9:10 AM CDT - 08/26/2024 11:59 PM CDT Hospital Encounter Department of Laboratory Medicine and Pathology, [facility] in [place], [place] [address] [place] [phone] Ramon Taylor Jr., M.D. Impairment Cognitive Mild Discharge Disposition: Home or Self Care 08/26/2024 8:00 AM CDT Comprehensive Visit Department of Neurology in [place], [place] [address] [place] [phone] Ghada Perdomo APRN, C.N.P., M.S.N. Ramon Taylor Jr., M.D. 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 Sarcoid Myocarditis (HCC) (Primary Dx) 08/24/2024 1:00 PM CDT - 08/24/2024 11:59 PM CDT Hospital Encounter Department of Radiology, [facility] in [address] [phone] Ghada Perdomo APRN, C.NCher, M.S.N. Sarcoid Myocarditis (HCC) Discharge Disposition: Home or Self Care 08/24/2024 10:59 AM CDT - 08/24/2024 12:59 PM CDT Hospital Encounter Department of Cardiovascular Diseases in [address] [phone] Ghada Perdomo APRN, C.N.PSandie, M.S.N. Sarcoid Myocarditis (HCC) Discharge Disposition: Home or Self Care 08/24/2024 10:30 AM CDT Office Visit Division of Rheumatology in [address] [phone] Neena Espinoza APRN, C.N.P., D.N.P. Sarcoid Myocarditis (HCC); Sarcoidosis; Monitoring For Therapeutic Drug Therapy 08/24/2024 9:33 AM CDT - 08/24/2024 10:58 AM CDT Hospital Encounter Department of Laboratory Medicine and Pathology, [facility] in [address] [phone] Ghada Perdomo APRN, C.N.P., M.S.N. Impairment Cognitive Mild; Sarcoid Myocarditis (HCC) Discharge Disposition: Home or Self Care 08/24/2024 9:12 AM CDT - 08/24/2024 9:32 AM CDT Hospital Encounter Department of Cardiovascular Diseases in [address] [phone] Ghada Perdomo APRN, C.N.P., M.S.N. Sarcoid Myocarditis (HCC) Discharge Disposition: Home or Self Care 08/24/2024 8:09 AM CDT - 08/24/2024 9:11 AM CDT Hospital Encounter Department of Cardiovascular Diseases in [address] [phone] Ghada Perdomo APRN, C.N.P., M.S.N. Sarcoid Myocarditis (HCC) Discharge Disposition: Home or Self Care 08/24/2024 Clinical Communication Department of Cardiovascular Diseases in [place], [place] [address] [place] [phone] Leoncio Hernandez R.N. New A-flutter w/ RVR 08/21/2024 Clinical Communication Department of Cardiovascular Medicine in [place], [place] [address] [place] [phone] Eliu Javier M.D. 08/20/2024 1:15 PM CDT Clinical Communication Virtual Review in [place], [place] 200 [place] [phone] Pre-visit Intake 08/19/2024 Clinical Communication Department of Neurology in [place], [place] [address] [place] [phone] Ramon Taylor Jr., M.D. Pre-visit Testing Orders (Question about MRI) 08/19/2024 Clinical Communication Department of Cardiovascular Diseases in [place], [place] [address] [place] [phone] Addy Wetzel, RVanessa. Follow-up 08/10/2024 Clinical Communication Department of Neurology in [place], [place] [address] [place] [phone] Ramon Taylor Jr., M.D. Pre-visit Testing Orders (New Patient - General) 08/07/2024 Clinical Communication Department of Cardiovascular Medicine in [place], [place] [address] [place] [phone] Hamilton Babcock M.D. 07/24/2024 11:39 AM CDT - 07/24/2024 11:59 PM CDT Hospital Encounter Department of Cardiovascular Diseases in [place], [place] [address] [place] [phone] Fernando Tomlin M.D. Aftercare Cardiac Defibrillator Discharge Disposition: Home or Self Care 07/24/2024 11:01 AM CDT - 07/24/2024 11:38 AM CDT Hospital Encounter Department of Cardiovascular Diseases in [place], [place] [address] [place] [address] Fernando Tomlin M.D. Aftercare Cardiac Defibrillator Discharge Disposition: Home or Self Care 07/24/2024 10:30 AM CDT - 07/24/2024 11:00 AM CDT Hospital Encounter Department of Radiology, [facility] in [place], [place] [address] [place] [address] Ghada Perdomo APRN, C.NSandieP., M.S.N. Impairment Cognitive Mild Discharge Disposition: Home or Self Care 06/25/2024 8:29 AM CDT - 06/25/2024 11:59 PM CDT Hospital Encounter Department of Cardiovascular Diseases in [place], [place] [address] [place] [phone] Joey Castaneda M.D. Discharge Disposition: Home or Self Care 06/05/2024 9:43 AM CDT - 06/05/2024 11:59 PM CDT Hospital Encounter Department of Cardiovascular Diseases in [place], [place] [address] [place] [phone] Amanda Neely M.B.B.S. Discharge Disposition: Home or Self Care from [...] drink = 0.6 oz pur e alcohol) [facility] Utilities Answer Date Recorded In the past 12 months has [facility] oboxo, gas, oil, or water [employer] threatened to shut off services in your [...] your living situation today? I have a [facility] place to live 08/19/2024 Education Answer Date Recorded What is the highest level of school you have completed or the highest degree you have received? 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 Gender Identity Female 11/22/2021 11:24 PM CDT Sexual Orientation Lesbian or Alonso 11/22/2021 11 :24 PM CDT Last Filed Vital Signs Vital Sign Reading Time Taken Comments Blood Pressure 131/85 08/26/2024 7:54 AM CDT Pulse 90 08/26/2024 7:54 AM CDT Temperature 36.7 C (98.1 F) 08/24/2024 10:27 AM CDT Respiratory Rate - - Oxygen Saturation 97% 08/23/2023 1:25 PM CDT Inhaled Oxygen Concentration - - Weight 103 kg (226 lb 4.8 oz) 08/24/2024 10:27 A M CDT Height 170.7 cm (5' 7.21) 08/24/2024 10:27 AM C DT Body Mass Index 35.23 08/24/2024 10:27 AM CDT Plan of Treatment Upcoming Encounters Date Type Department Care Team (Latest Contact Info) Description 10/14/2024 11:45 AM CDT Clinical Communication Virtual Review in [address] [phone] 10/19/2024 12:00 PM CDT Appointment Department of Radiology, [facility] in [address] [phone] Navi Motley M.D. [address] [place] [phone] 10/19/2024 1:30 PM CDT Diagnostic Division of Pulmonary Medicine in [address] [phone] Navi Motley M.D. [address] [place] [phone] 10/19/2024 4:00 PM CDT Office Visit Division of Pulmonary Medicine in [address] [phone] Navi Motley M.D. [address] [place] [phone] 11/02/2024 9:30 AM CDT Telemedicine Division of Rheumatology in [place], [place] [address] [place] [phone] Neena Espinoza, LODE MINER BLASTING, C.N.P., D.N.P. [address] [place] [phone] Health Maintenance Due Date Last Done Comments CT Colonography 1963 Cervical/Vaginal Cancer Screening 1965 Cologuard 1965 Colonoscopy 1963 Colorectal Cancer Screening 1963 FIT 1965 HIV Screening 1965 Depression Screening (Annual PHQ-2) 02/26/2024 Mammogram 11/03/2024 11/04/2023, 09/0 10/2023, 06/18/2022, Additional history exists Influenza Vaccine (#1) 2024 , 12/25/2022, 12/31/2021, Additional history exists Fasting Glucose for Diabetes Screening 08/25/2027 08/24/2024, 03/23/2024, 11/27/2023, Additional history exists Lipid (Cholesterol) Screening 04/04/2028 04/04/2023, 05/28/2022, 05/22/2021 DTaP,Tdap,and Td Vaccines (3 - Td or Tdap) 08/15/2032 08/15/2022, 09/02/2013 Pneumococcal vaccine (50+ years) Completed 02/28/2023 Hepatitis B Screening Discontinued 06/12/2023 RSV vaccine - (32-36 weeks) or 60+ years Completed 11/07/2023 Zoster Vaccines Completed 05/07/2024, 06/17/2023 COVID-19 Vaccine Completed 08/06/2024, , 11/07/2023, Additional history exists HPV Vaccines Aged Out No longer eligi ble based on patient's age to complete this topic IPV Vaccines Aged Out No longer eligi ble based on patient's age to complete this topic Medical Devices Implanted Type Area Agriculture Laboratory Technician Device Identifier Shelf Expiration Date Model / Serial / Lot Medtronic 3830 Selectsecure Mri Surescan [id number] Implanted:10/2023 (Quantity not on file) Cardiac Lead Medtronic 3830 SELECTSECURE MRI SURESCAN / [id number] / Medtronic 3830 Selectsecure Mri Surescan [id number] Implanted:10/2023 (Quantity not on file) Cardiac Lead Medtronic 3830 SELECTSECURE MRI SURESCAN / [id number] / Medtronic 6935m Sprint Quattro Secure S Mri Surescan [id number] Implanted:10/2023 (Quantity not on file) Cardiac Lead Medtronic 6935M SPRINT QUATTRO SECURE S MRI SURESCAN / [id number] / Medtronic [id number] Seymour Xt Hf Cuff Setter Lockstitch-D Mri [id number] Implanted:10/2023 (Quantity not on file) Implant Cardiac Defibrillator Medtronic [id number] [place] XT HF MAIL HANDLER EQUIPMENT OPERATOR-D MRI / [id number] / Procedures Procedure Name Priority Date/Time Associated Diagnosis Comments NEUROFILAMENT LIGHT CHAIN, P Routine 08/26/2024 9:32 AM CDT Impairment Cognitive Mild HOLTER MONITOR - IN CLINIC RECEIVING SUPERVISOR Routine 08/25/2024 5:54 PM CDT Sarcoid Myocarditis (HCC) PET CT CARDIAC SARCOID RAD - Routine (most inpatients and all outpatients) 08/24/2024 3:46 PM CDT Sarcoid Myocarditis (HCC) (TTE) 2D ECHO DOPPLER COLOR Routine 08/24/2024 1:06 PM CDT Sarcoid Myocarditis (HCC) TROPONIN T, 5TH GEN, P Routine 08/24/2024 9:52 AM CDT Sarcoid Myocarditis (HCC) BETA-HYDROXYBUTYRAT E, S Routine 08/24/2024 9:52 AM CDT Sarcoid Myocarditis (HCC) NT-PRO B-TYPE NATRIURETIC PEPTIDE (BNP), S Routine 08/24/2024 9:52 AM CDT Sarcoid Myocarditis (HCC) C-REACTIVE PROTEIN, HIGH SENSITIVITY, S/P Routine 08/24/2024 9:52 AM CDT Sarcoid Myocarditis (HCC) COMPREHENSIVE METABOLIC PANEL, S/P Routine 08/24/2024 9:52 AM CDT Sarcoid Myocarditis (HCC) CBC WITH DIFFERENTIAL, B Routine 08/24/2024 9:52 AM CDT Sarcoid Myocarditis (HCC) FOLATE, S Routine 08/24/2024 9:52 AM CDT Impairment Cognitive Mild ICD BIVENTRICULAR INTERROGATION WITH PROGRAMMING Routine 08/24/2024 8:47 AM CDT Sarcoid Myocarditis (HCC) ECG Routine 08/24/2024 8:01 AM CDT Sarcoid Myocarditis (HCC) MR BRAIN DEMENTIA WITH QUANT ANALYSIS WITHOUT IV CONTRAST RAD - Routine (most inpatients and all outpatients) 07/24/2024 12:05 PM CDT Impairment Cognitive Mild ICD PERIOPERATIVE INTERROGATION Routine 07/24/2024 11:39 AM CDT Aftercare Cardiac Defibrillator ICD PERIOPERATIVE INTERROGATION Routine 07/24/2024 11:02 AM CDT Aftercare Cardiac Defibrillator INTERFACED REMOTE DEVICE CHECK Routine 06/25/2024 8:29 AM CDT INTERFACED REMOTE DEVICE CHECK Routine 06/05/2024 9:43 AM CDT HEPATITIS B SURFACE ANTIGEN Routine 06/12/2023 12:27 PM CDT Sarcoidosis Immunodeficiency Due To Drugs (HCC) LIPID PANEL, S Routine 04/04/2023 8:00 AM FUSING MACHINE FEEDER Failure Heart (HCC) from Last 3 Months or Most Recently Relevant to Health Maintenance Results * Neurofilament Light Chain (08/26/2024 9:32 AM CDT) Neurofilament Light Chain, P 19.8 < or = 28.8 pg/mL 08/26/2024 2:18 PM CDT [facility] Comment: As of 2024, [facility] has updated the Neurofilament Light Chain (NfL) methodology. If patient is undergoing serial monitoring of NfL levels, rebaselining by requesting that this sample also be run on the previous assay method for comparison purposes is recommended. Rebaseline of this sample at no charge will be available until 04/23/2025 and the rebaseline result will be added to this report. Contact [facility] at to request this service. For [facility] patients, call [phone]. ----ADDITIONAL INFORMATION---- The testing method is a chemiluminescent enzyme immunoassay for the quantitative determination of NfL in plasma manufactured by [employer] and performed on the Rosum analyzer. Values obtained with different methods may be different and cannot be used interchangeably. This test was developed and its performance characteristics determined by [facility] in a manner consistent with CLIA requirements. It has not been cleared by the [place] Food and Drug Administration. Blood (Blood, Venous) 08/26/2024 9:32 AM CDT 08/26/2024 1:25 PM CDT us Ramon Taylor Jr., M.D. LAB BLOOD NON ADD-ON F inal Result [facility] [address] [place] [address] [facility] [address] [place] [address] * HOLTER MONITOR - IN CLINIC RECEIVING SUPERVISOR (08/25/2024 5:54 PM CDT) Min Heart Rate [...] Duration 0 duration INFOBION IC MOME AF Gilliam 0 percent INFOBIONIC MOME Symptom Count 0 [...] 4. No patient triggered events were noted. Mechanic'S Assistant: ARIANA Keating Procedure Note Gian Stark M.D., [...] 4. No patient triggered events were noted. Mechanic'S Assistant: ARIANA Keating Agustina Callahan APRN, M.S.N. CV CARDIAC SERVICES PROCEDURES Edited Result - Final Performing Organization Address City/[facility]/ZIP Co de Phone Number TABITHA SALGADO NA * PET CT Cardiac Sarcoid (08/24/2024 3:46 PM CDT) 08/24/2024 1:11 PM CDT Narrative [facility] CV MERGE - 08/24/2024 4:14 PM CDT See PDF For Result Procedure Note Jose Rafael Villarreal M.D. - 08/24/2024 See PDF For Result us Ghada Perdomo APRN, C.N.P., M.S.N. IMG NM P ROCEDURES Final Result Performing Organization Address [facility] Co de Phone Number [facility] CV MERGE NA * (TTE) 2D ECHO DOPPLER COLOR (08/24/2024 [...] was performed but not reported based on kidney trimmer's judgment. Estimated right ventricular systolic pressure 34 [...] without significant obstruction to left ventricular inflow. Kpuo-ug-ovdwvlov central regurgitation. 4. Normal right ventricular chamber [...] apparatus withoutsignificant obstruction to left ventricular inflow. Amzo-et-eilpoocbqgwhkga regurgitation. 4. Normal right ventricular chamber size, [...] was performed but not reported based on kidney trimmer's judgment.Estimated right ventricular systolic pressure 34 mmHg [...] report, see the Order-Level Documents. Ghada Perdomo APRN, C.N.P., M.S.N. CV ECHO PROCEDURES Final Result * (ABNORMAL) Beta-Hydroxybutyrate (08/24/2024 9:52 AM CDT) Beta-Hydroxybut yrate, S 0.6(H) <0.4 mmol/L 08/24/2024 11:25 AM CDT DTL Blood (Blood, Venous) 08/24/2024 9:52 AM CDT 08/24/2024 10:48 AM CDT Ghada Perdomo APRN, C.N.P., M.S.N. LAB BLOO D ADD-ON Final Result Performing Organization Address City/[facility]/ZIP Co de Phone Number [facility] [address] [place] [address] * (ABNORMAL) NT-Pro B-Type Natriuretic Peptide (BNP) (08/24/2024 9:52 AM CDT) Pathologist [facility] NT-Pro BNP 227(H) <=226 pg/mL 08/24/2024 11:25 [...] 9:52 AM CDT 08/24/2024 10:48 AM CDT Ghada Perdomo APRN, C.N.P., M.S.N. LAB BLOO D ADD-ON Final Result Performing Organization Address City/[facility]/ZIP Co de Phone Number [facility] [address] [place] [address] * (ABNORMAL) CBC with Differential, Blood (08/24/2024 9:52 AM CDT) Pathologist [facility] Hemoglobin 11.8 11.6 - 15.0 g/dL 08/24/2024 [...] 9:52 AM CDT 08/24/2024 10:21 AM CDT Ghada Perdomo APRN, C.N.P., M.S.N. LAB BLOO D ADD-ON Final Result [facility] [address] [place] [address], [facility] DTL [facility] [address] [place] [address] [facility] [address] [place] [address] * (ABNORMAL) C-Reactive Protein, High Sensitivity (08/24/2024 9:52 AM CDT) C-Reactive Protein, High Sens, S >18.0(H) <2.0 mg/L 08/24/2024 11:25 AM CDT DTL Comment: C-reactive protein >10 mg/L is suggestive of acute infection, active arthritis, or other inflammatory illness. Consider repeat analysis of CRP in 2-4 weeks to establish baseline value. Blood (Blood, Venous) 08/24/2024 9:52 AM CDT 08/24/2024 10:48 AM CDT Tyrone Callahan APRN.N.Cheryl., M.S.N. LAB BLOO D ADD-ON Final Result Performing Organization Address [facility] [place] [address] * Troponin T, 5th Generation (08/24/2024 9:52 AM CDT) Troponin T, 5th gen 10 <=10 ng/L 08/24/2024 11:23 AM CDT DTL Blood (Blood, Venous) 08/24/2024 9:52 AM CDT 08/24/2024 10:48 AM CDT Ghada Perdomo APRN, Tyrone.N.P., M.S.N. LAB BLOO D ADD-ON Final Result Performing Organization Address [facility] de Phone Number [address] [place] [address] * Folate (08/24/2024 9:52 AM CDT) Folate, S >20.0 >=4.0 mcg/L 08/24/2024 11:35 AM CDT DTL Blood (Blood, Venous) 08/24/2024 9:52 AM CDT 08/24/2024 10:48 AM CDT Tyrone Callahan APRN.N.P., M.S.NSandie LAB CARLIE Rivera ADD-ON Final Result [facility] [address] [place] [address], [facility] DTL [facility] [address] [place] [address] * (ABNORMAL) Comprehensive Metabolic Panel (08/24/2024 9:52 AM CDT) Pathologist [facility] Potassium, S 4.1 3.6 - 5.2 mmol/L [...] AM CDT 08/24/2024 10:48 AM CDT us Yas Callahan APRNNSandieP., M.S.N. LAB BLOO D ADD-ON Final Result [facility] [address] [place] [address], [facility] DTL [facility] [address] [place] [address] * ICD BIVENTRICULAR INTERROGATION WITH PROGRAMMING (08/24/2024 8:47 AM CDT) Only the most recent of3 resultswithin the time period is included. Date Time Interrogation Session [id number] [employer] [facility] Implantable Pulse Generator Agriculture Laboratory Technician Medtronic Splendia SYSTEM Implantable Pulse Generator Type Cardiac Resynchronization Therapy - Defibrillator [facility] Implantable Pulse Generator Model Seymour XT HF CRTD [id number] [facility] Implantable Pulse Generator Serial Number [id number] [employer] [facility] Implantable Pulse Generator Implant Date [id number] [employer] [facility] Battery Voltage 3.010 [facility] [employer] [facility] Battery HARD ROCK MINER Trigger 2.800 [facility] Battery Status OK FOUND [employer] [facility] SYSTEM Capacitor Charge Time 3.600 [facility] Chin Statistic RA Percent Paced 42.93 [employer] [facility] Chin Statistic RV Percent Paced 0.53 [employer] [facility] MAIL HANDLER EQUIPMENT OPERATOR Statistic LV Percent Paced 99.35 [employer] [facility] MAIL HANDLER EQUIPMENT OPERATOR Statistic MAIL HANDLER EQUIPMENT OPERATOR Percent Paced 0.65 [employer] [facility] Atrial Tachy Statistic AT/AF Gilliam Percent 0.01 [employer] [facility] Lead Channel Sensing Intrinsic Amplitude 2.900 [employer] [facility] Lead Channel Setting Sensing Sensitivity 0.30 [employer] [facility] Lead Channel Impedance Value [facility] Lead Channel Pacing Threshold Amplitude 0.750 [employer] [facility] Lead Channel Pacing Threshold Pulse Width 0.4 [employer] [facility] Lead Channel Measurements Date and Time 20240824 [employer] [facility] Lead Channel Setting Pacing Amplitude 2.000 [facility] Lead Channel Setting Pacing Pulse Width 0.4 [facility] Lead Channel Sensing Intrinsic Amplitude 16.000 [facility] Lead Channel Setting Sensing Sensitivity 0.45 [facility] Lead Channel Impedance Value 361 [...] Lead Channel Measurements Date and Time [id number] [facility] Lead Channel Setting Pacing Amplitude 2.750 [facility] Lead Channel Setting Pacing Pulse Width 0.4 [facility] Chin Setting Mode (NBG Code) DDDR [facility] Ventricular chambers paced during MAIL HANDLER EQUIPMENT OPERATOR pacing. LV [facility] Chin Setting Lower Rate Limit 60 [facility] Chin Setting AT Mode Switch Rate 150 [facility] Chin Setting Maximum Tracking Rate 130 [facility] Chin Setting Maximum Sensor Rate 130 [facility] Chin Setting PAV Delay 280 [facility] Chin Setting JUVENCIO Delay 280 [facility] Therapy Statistic Recent Shocks Aborted 0 [facility] Therapy Statistic Recent ATP Delivered 0 [facility] Mur RV HV Impedance 74 [facility] Zone Setting Type Category VF [facility] Murj Rate 1 188 [facility] Mur Therapies 2 x iATP, 40J, 40J, 40J, [...] 3 [facility] Implantable Lead Agriculture Laboratory Technician Medtronic [facility] Implantable Lead Model 3830 SelectSecure MRI SureScan [facility] Implantable Lead Location Right Atrium [facility] Implantable Lead Connection Status Connected [facility] Implantable Lead Serial Number [id number] [facility] Implantable Lead Implant Date 20230704 [facility] Implantable Lead Special Function Lead length: 59.00 cm [facility] Implantable Lead Agriculture Laboratory Technician Medtronic [facility] Implantable Lead Model 3830 SelectSecure MRI SureScan [facility] Implantable Lead Location Left Ventricle [facility] Implantable Lead Connection Status Connected [facility] Implantable Lead Serial Number [id number] [facility] Implantable Lead Implant Date 20230704 [facility] Implantable Lead Special Function Lead length: 69.00 cm [facility] Implantable Lead Agriculture Laboratory Technician Medtronic [facility] Implantable Lead Model 6935M Sprint Quattro Secure S MRI SureScan [facility] Implantable Lead Location Right Ventricle [facility] Implantable Lead Connection Status Connected [facility] Implantable Lead Serial Number [id number] [facility] Implantable Lead Implant Date [...] therapy * Total episodes: 1 * AT Gilliam: 0.01% * Number of ATP therapy: 3 [...] happen about once a week. * AT/AF Gilliam: 0.01% * Total episodes: 1 on 08/01/2024 @ 5:57 PM Plan: This patient underwent device interrogation. I agree that the device interrogation was medically indicated to provide appropriate care and continue routine device interrogations as indicated. Physician Notified: Hamilton Babcock M.D. notified via [employer] Communication of new AFL w/ RVR Encounter [...] therapy * Total episodes: 1 * AT Gilliam: 0.01% * Number of ATP therapy: 3 [...] happen about once a week. * AT/AF Gilliam: 0.01% * Total episodes: 1 on 08/01/2024 @ 5:57 PM Plan: This patient underwent device interrogation. I agree that the deviceinterrogation was medically indicated to provide appropriate care andcontinue routine device interrogations as indicated. Physician Notified: Hamilton Babcock M.D. notified via [employer] Communication ofnew AFL w/ RVR Encounter Summary: This report includes 1 transmission that was receivedon 2024-08-24. Battery, lead impedance, sensing amplitude and pacingthreshold data was reviewed. us Tyrone Callahan APRN.N.P., M.S.N. CV IMPLA NTABLE CARDIAC DEVICE Final Result * ECG 12 Lead (08/24/2024 8:01 AM CDT) Ventricular Rate ECG/Min 77 BPM MUSE DC Interval 196 ms MUSE QRSD Interval 156 ms MUSE QT Interval 456 ms MUSE QTC Interval 516 ms MUSE P Filer 59 degrees MUSE R Filer -51 degrees MUSE T Wave Filer 104 degrees MUSE 08/24/2024 8:01 AM CDT 08/24/2024 3:00 PM CDT Impressions MUSE - 08/24/2024 8:13 AM CDT Atrial-paced rhythm Left axis deviation Left bundle branch block with secondary ST-T abnormalities Prolonged QT When compared with ECG of 23-Mar-2024 11:51, QT has lengthened Reviewed by ARIANA Wilder Narrative Procedure Note Derick Steel M.D. - 08/24/2024 IMPRESSION: Atrial-paced rhythm Left axis deviation Left bundle branch block with secondary ST-T abnormalities Prolonged QT When compared with ECG of 23-Mar-2024 11:51, QT has lengthened Reviewed by ARIANA Wilder us Tyrone Callahan APRN.N.P., M.S.N. ECG ORDE RABLES Edited Result - Final MUSE NA * MR Brain Dementia with Quant Analysis [...] assessment was performed on an independent computer fine dining server using [employer] software. The clinical indication for performing the post-processing was cognitive changes. Review of the quality control head images demonstrates adequate segmentation of the hippocampi. [...] at the 30th age normalized percentile (series [id number]). Mild paranasal sinus mucosal thickening. Procedure Note [...] andassessment was performed on an independent computer fine dining server usingioGenetics software. The clinical indication for performing thepost-processing was cognitive changes. Review of the quality control head images demonstrates adequate segmentation of thehippocampi. Left [...] be at the 30th agenormalized percentile (series [id number]). Mild paranasal sinus mucosal thickening. IMPRESSION: No abnormal intracranial mass or hemorrhage. No chronic infarcts orevidence of prior hemorrhage. Hippocampal volumes reported to be at the5th age normalized percentile. us Ghaad Perdomo APRN C.N.P., M.S.N. IMG MRI PROCEDURES Final Result * CAR CARDIAC DEVICE INTERROGATION (06/25/2024 8:29 AM CDT) Only the most recent of2 resultswithin the time period is included. Date Time Interrogation Session [id number] [facility] Type Interrogation Session Remote [facility] Implantable Pulse Generator Agriculture Laboratory Technician Medtronic [facility] Implantable Pulse Generator Type Cardiac Resynchronization Therapy - Defibrillator [facility] Implantable Pulse Generator Model [id number] [facility] Implantable Pulse Generator Serial Number [id number] [facility] Implantable Pulse Generator Implant Date 20230704 [facility] Battery Remaining Longevity 121.0 mo [facility] Battery Voltage 3.010 [facility] Battery HARD ROCK MINER Trigger 2.800 [facility] Capacitor Charge Time 3.600 [facility] Chin Statistic RV Percent Paced 0.00 [facility] MAIL HANDLER EQUIPMENT OPERATOR Statistic LV Percent Paced 0.72 [facility] MAIL HANDLER EQUIPMENT OPERATOR Statistic MAIL HANDLER EQUIPMENT OPERATOR Percent Paced 0.00 [facility] Atrial Tachy Statistic AT/AF Gilliam Percent 0.00 [facility] Lead Channel Sensing Intrinsic Amplitude 2.900 [facility] Lead Channel Setting Sensing Sensitivity 0.30 [facility] Lead Channel Impedance Value 399 [facility] Lead Channel Setting Pacing Amplitude 1.500 [facility] Lead Channel Setting Pacing Pulse Width 0.4 [facility] Lead Channel Sensing Intrinsic Amplitude 10.400 [facility] Lead Channel Setting Sensing Sensitivity 0.45 [facility] Lead Channel Impedance Value 285 [facility] Lead Channel Impedance Value 608 [facility] Lead Channel Pacing Threshold Amplitude 1.625 [facility] Lead Channel Pacing Threshold Pulse Width 0.4 [facility] Lead Channel Measurements Date and Time [id number] [facility] Lead Channel Setting Pacing Amplitude 2.750 [facility] Lead Channel Setting Pacing Pulse Width 0.4 [facility] Chin Setting Mode (NBG Code) DDDR [facility] Ventricular chambers paced during MAIL HANDLER EQUIPMENT OPERATOR pacing. LVOnly [facility] Chin Setting Lower Rate Limit 60 [facility] Chin Setting AT Mode Switch Rate 150 [facility] Chin Setting Maximum Tracking Rate 130 [facility] Chin Setting Maximum Sensor Rate 130 [facility] Chin Setting PAV Delay 280 [facility] Chin Setting JUVENCIO Delay 280 [facility] Therapy Statistic Recent Shocks Delivered 0 [facility] Therapy Statistic Recent Shocks Aborted 0 [facility] Therapy Statistic Recent ATP Delivered 0 [facility] Murj RV HV Impedance 75 [facility] Lead Channel Setting Sensing Polarity Bipolar [facility] Lead Channel Setting Sensing Polarity Bipolar [facility] Lead Channel Setting Pacing Polarity Bipolar [facility] Lead Channel Setting Pacing Polarity [...] 6 [facility] Implantable Lead Agriculture Laboratory Technician Medtronic [facility] Implantable Lead Model 3830 SelectSecure MRI SureScan [facility] Implantable Lead Location Right Atrium [facility] Implantable Lead Connection Status Connected [facility] Implantable Lead Serial Number [id number] [facility] Implantable Lead Implant Date 20230704 [facility] Implantable Lead Special Function Lead length: 59.00 cm [facility] Implantable Lead Agriculture Laboratory Technician Medtronic [facility] Implantable Lead Model 3830 SelectSecure MRI SureScan [facility] Implantable Lead Location Left Ventricle [facility] Implantable Lead Connection Status Connected [facility] Implantable Lead Serial Number [id number] [facility] Implantable Lead Implant Date 20230704 [facility] Implantable Lead Special Function Lead length: 69.00 cm [facility] Implantable Lead Agriculture Laboratory Technician Medtronic [facility] Implantable Lead Model 6935M Sprint Quattro Secure S MRI SureScan [facility] Implantable Lead Location Right Ventricle [facility] Implantable Lead Connection Status Connected [facility] Implantable Lead Serial Number [id number] [facility] Implantable Lead Implant Date 20230704 [facility] Implantable Lead Special Function Lead length: 62.00 cm [facility] Anatomical Region Laterality Modality Other 07/02/2024 12:0 0 PM CDT Impressions 07/02/2024 12:00 PM CDT Encounter Impression: Title: Normal Remote: No Events * Normal Device Function--Device is programmed to promote intrinsic conduction * Alerts or events: None * Battery: , 10.08 yrs * Sensing, impedance and thresholds reviewed * Programmed parameters reviewed * Presenting rhythm As/Ap-Vs 65-75 bpm with occasional PAC/PVC * Heart Rate Histograms reviewed * No significant changes noted Plan: Routine remote follow up and as needed. This patient underwent device interrogation. I agree that the device interrogation was medically indicated to provide appropriate care and continue routine device interrogations as indicated. Encounter Summary: This report includes 1 transmission that was received on 2024-06-25. Battery was reviewed. Narrative Procedure Note Joey Castaneda M.D. - 07/02/2024 IMPRESSION: Encounter Impression: Title: Normal Remote: No Events * Normal Device Function--Device is programmed to promote intrinsicconduction * Alerts or events: None * Battery: , 10.08 yrs * Sensing, impedance and thresholds reviewed * Programmed parameters reviewed * Presenting rhythm As/Ap-Vs 65-75 bpm with occasional PAC/PVC * Heart Rate Histograms reviewed * No significant changes noted Plan: Routine remote follow up and as needed. This patient underwent device interrogation. I agree that the deviceinterrogation was medically indicated to provide appropriate care andcontinue routine device interrogations as indicated. Encounter Summary: This report includes 1 transmission that was receivedon 2024-06-25. Battery was reviewed. Joey Castaneda M.D. CV IMPLANTABLE CARDIAC FABIOLA CE Final Result * Hepatitis B Surface Antigen (06/12/2023 12:27 PM CDT) HBs Antigen, S Negative Negative 06/14/2023 10:56 AM CDT [facility] Blood (Blood, Venous) 06/12/2023 12:27 PM CDT 06/12/2023 4:50 PM CDT Olivia Arreguin M.D. LAB MICROBIOLOGY - BLO OD ORDERABLES Final Result [facility] [address] [place] [address] [facility] [address] [place] [address] * (ABNORMAL) Lipid Panel (04/04/2023 8:00 AM FUSING MACHINE FEEDER) Pathologist [facility] Triglycerides 144 mg/dL 04/04/2023 9:16 AM FUSING MACHINE FEEDER DTL Comment: ----REFERENCE VALUE---- Normal: <150 mg/dL Borderline High: 150-199 mg/dL High: 200-499 mg/dL Very High: > or =500 mg/dL Cholesterol, Total 180 mg/dL 2023 9:16 AM FUSING MACHINE FEEDER DTL Comment: ----REFERENCE VALUE---- Desirable: < 200 mg/dL Borderline High: 200 - 239 mg/dL High: > or = 240 mg/dL Cholesterol, LDL, Calculated 107 mg/dL 04/04/2023 9:16 AM FUSING MACHINE FEEDER DTL Comment: ----REFERENCE VALUE---- Desirable: <100 mg/dL Above Desirable: 100-129 mg/dL Borderline High: 130-159 mg/dL High: 160-189 mg/dL Very High: >=190 mg/dL ----ADDITIONAL INFORMATION---- LDL cholesterol calculated using the Gardner/NIH equation. Cholesterol, HDL, S 48(L) >=50 mg/dL 04/04/2023 9:16 AM FUSING MACHINE FEEDER DTL Cholesterol, Non-HDL, Calculated 132 mg/dL 04/04/2023 9:16 AM FUSING MACHINE FEEDER DTL Comment: ----REFERENCE VALUE---- Desirable: <130 mg/dL Above Desirable: 130-159 mg/dL Borderline High: 160-189 mg/dL High: 190-219 mg/dL Very High: > or =220 mg/dL Fasting (8 HR or more) No 04/04/2023 8:41 AM FUSING MACHINE FEEDER DTL Blood (Blood, Venous) 04/04/2023 8:00 AM FUSING MACHINE FEEDER 04/04/2023 8:41 AM FUSING MACHINE FEEDER Neisha Nolan APRN, C.N.P., M.S.N. LAB BLOOD ADD -ON Final Result [facility] [address] [place] [address], [facility] [address] [place] [address] from Last 3 Months or Most Recently Relevant to Health Maintenance Additional Health Concerns Infection Onset Date Last Indicated Protective Environment 07/31/2023 4 Insurance [facility] Care Teams Solidworks Mechanical Designer Relationship Specialty Start Date End Date Elsewhere, Pcp PCP - General Internal Medicine 08/16/23
--- OUTSIDE RECORDS SUMMARY | 2024-08-31 12:37 | XMS_ITS | Encounter Summary ---
Author Organization [facility] Address [address] [place] [id number] Care Team Providers Care Snow Blower Name Role Phone Elsewhere, Pcp Primary Care Provider Unavailabl e Reason for Visit * Reason Onset Date Comments Pre-visit Testing Orders 08/10/2024 New Pat ient - General Encounter Details Date Type Department Care Team (Latest Contact Info) Description 08/10/2024 Clinical Communication Department of Neurology in [place], [place] [address] [place] [phone] Ramon Taylor Jr., M.D. [address] [place] [phone] Pre-visit Testing Orders (New Patient - General) Social History Tobacco Use Types Packs/Day Years Used Date Smoking Tobacco: Former Cigarettes 0.5 10 0 02/25/1994 - 02/26/2004 Passive Smoke Exposure: Past Smokeless Tobacco: Never Alcohol Use Standard Drinks/Week Comments Yes 2 (1 standard drink = 0.6 oz pur e alcohol) [facility] Utilities Answer Date Recorded In the past 12 months has [facility] [employer], gas, oil, or water [employer] threatened to shut off services in your [...] your living situation today? I have a [facility] place to live 03/30/2023 Education Answer Date Recorded What is the highest level of school you have completed or the highest degree you have received? Master's degree (e.g., MA, MS, Arti, MEd, GLASS BEVELER, GALA) 11/22/2021 Comments Unknown Sex and Gender Information Value Date Recorded Sex Assigned at Female 11/22/2021 11:24 PM CDT Legal Sex Female 8:39 AM ORACLE BUSINESS ANALYST Gender Identity Female 11/22/2021 11:24 PM CDT Sexual Orientation Lesbian or Alonso 11/22/2021 11 :24 PM CDT documented as of this encounter Plan of Treatment Upcoming Encounters Date Type Department Care Team (Latest Contact Info) Description 10/14/2024 11:45 AM CDT Clinical Communication Virtual Review in [place], [place] 200 [place] [phone] 10/19/2024 12:00 PM CDT Appointment Department of Radiology, [facility], in [place], [place] [address] [place] [phone] Navi Motley M.D. [address] [place] [phone] 10/19/2024 1:30 PM CDT Diagnostic Division of Pulmonary Medicine in [place], [place] [address] [place] [phone] Navi Motley M.D. [address] [place] [phone] 10/19/2024 4:00 PM CDT Office Visit Division of Pulmonary Medicine in [place], [place] [address] [place] [phone] Navi Motley M.D. [address] [place] [phone] 11/02/2024 9:30 AM CDT Telemedicine Division of Rheumatology in [place], [place] [address] [place] [phone] Neena Espinoza APRN, C.N.P., D.N.P. [address] [place] [phone] documented as of this encounter Visit Diagnoses Diagnosis Sarcoidosis- Primary documented in this encounter Additional Health Concerns Infection Onset Date Last Indicated Resolved Time Protective Environment 07/31/2023 07/31/2023 documented as of this encounter Care Teams Snow Blower Relationship Specialty Start Date End Date Elsewhere, Pcp PCP - General Internal Medicine 08/16/23 documented as of this encounter
--- OUTSIDE RECORDS SUMMARY | 2024-08-31 12:37 | XMS_ITS | Clinical Summary ---
Author Organization [facility] Address [address] [place] [address] Care Team Providers Care Back Tender Fourdrinier Name Role Phone Lavern Beavers MD Primary Care Provider [phone] Jeff Morales MD Unavailable [phone] Allergies Active Allergy Reactions Criticality Noted Date Comments Sulfa (Sulfonamide Antibiotics) Nausea And Vomiting 01/30/2021 Medications metroNIDAZOLE 0.75 % creamIndications :Rosacea Apply topically to affected area on face once-twice daily. 45 g 2 06/05/19 24 Active Additional Information Patient taking differently: Apply topically to affected area on face once-twice daily.patient uses on and off, Reported on 08/06/2024 cholecalciferol (Vitamin D-3) 400 unit tablet Take 800 units by mouth once daily. Active NebulizerIndicat ions:SOB (shortness of breath) Nebulizer, neb kit, neb cup and mask. Medication: albuterol. For home use. Length of need for Medicare patients: 99 1 Each 12/31/19 24 Active albuterol-ipratr opium (DUONEB) (2.5-0.5 mg) in 3 mL NEBULIZATION solutionIndicati ons:Acute cough,SOB (shortness of breath) Inhale 3 mL via a nebulizer every 6 hours if needed for Shortness Of Breath. 15 mL 3 12/31/19 24 Active methotrexate (RHEUMATREX) 2.5 mg tablet Take 20 mg by mouth once weekly. 03/25/19 25 Active azelaic acid 15 % gelIndications:R osacea apply 1-2 times daily to affected area(s) 50 g 2 06/17/19 25 Active potassium chloride 20 mEq extended-release tablet (part/cryst)Gisela cations:Hypokale julia Take 1 Tablet (20 mEq) by mouth once daily. 93 Tablet 3 08/07/19 25 Active metoprolol succinate 50 mg sustained-releas e tabletIndication s:Ventricular trigeminy Take 1 Tablet (50 mg) by mouth two times daily. 186 Tablet 3 08/07/19 25 Active nortriptyline 10 mg capsuleIndicatio ns:Migraine without status migrainosus, not intractable, unspecified migraine type Take 2 Capsules (20 mg) by mouth at bedtime. 93 Capsule 3 08/07/19 25 Active folic acid 1 mg tabletIndication s:Pulmonary sarcoidosis (HC),Cardiac sarcoidosis (HC) Take 2 Tablets (2 mg) by mouth once daily. 186 Tablet 3 08/07/19 25 Active QUEtiapine 25 mg tabletIndication s:Anxiety Take 1 Tablet (25 mg) by mouth at bedtime if needed for Agitation or Hallucinations (sleep). 93 Tablet 3 08/07/19 25 Active folic acid 1 mg tablet Take 1 mg by mouth once daily. 025 Discontin ued(Reord er (E-cancel not sent)) calcium carbonate (Calcium 500) 500 mg calcium (1,250 mg) chewable tablet Chew 1,250 mg by mouth once daily. 025 Discontin ued(*Med complete/ Regimen complete/ Level of care change) QUEtiapine (SEROQUEL) 25 mg tabletIndication s:Anxiety Take 1 Tablet (25 mg) by mouth at bedtime if needed for Agitation or Hallucinations (sleep). 07/09/19 24 025 Discontin ued(Reord er (E-cancel not sent)) metoprolol succinate (TOPROL XL) 50 mg sustained-releas e tabletIndication s:Ventricular trigeminy Take 1 Tablet (50 mg) by mouth two times daily. 180 Tablet 07/29/19 24 025 Discontin ued(Reord er (E-cancel not sent)) potassium chloride (KLOR-CON M20) 20 mEq extended-release tablet (part/cryst)Gisela cations:Hypokale julia Take 1 Tablet (20 mEq) by mouth once daily. 100 Tablet 3 08/12/19 24 025 Discontin ued(Reord er (E-cancel not sent)) nortriptyline (PAMELOR) 10 mg capsule Take 20 mg by mouth at bedtime. 09/30/19 22 025 Discontin ued(Reord er (E-cancel not sent)) Active Problems Problem Noted [...] Encounters Date Type Department Care Team Description 08/31/2024 Nurse Triage [facility] [address] [place] [address] Lavern Beavers MD Difficulty Breathing 08/06/2024 9:10 AM CDT Office Visit [facility] [address] [facility] [place] [address] Lavern Beavers MD Physical (59 yr female /Medication review/Patient would like to discuss ointment suggestions for chaffing on panty line.) 08/06/2024 Travel 08/03/2024 1:00 PM CDT Office Visit [facility] [address] [address] Jeff Morales MD Follow Up (Kidney stones) 08/02/2024 Travel 07/07/2024 11:15 AM CDT Orders Only [facility] [address] [facility] [address] [facility] [place] [facility] 07/07/2024 Travel 06/17/2024 4:00 PM CDT Ancillary Procedure [facility] [address] [facility] [address] 06/16/2024 8:30 AM CDT Office Visit [facility] [address] [place], [place] [address] Charisse Cabrera MD Derm Problem 06/16/2024 Travel 06/12/2024 Travel 06/04/2024 Orders Only [facility] Scanner 1 scan: (1-Ord) [facility], CT ANGIO CHEST PE PROTOCOL, 06/04/2024 06/04/2024 Orders Only [facility] Scanner 1 scan: (1-Ord) [facility], XR CHEST 2V, 06/04/2024 from Last 3 Months Immunizations Immunization Administration Dates Next Due COVID-19 VACCINE SPIKEVAX (M ODERNA 50MCG/0.5ML) 12YO+ PFS 08/06/2024,05/07/2024,06/17/2023,12/25 Influenza, CCIIV3 (Age >=6 M O) (Egg Free) 11/07/2023 Influenza, IIV4 12/25/2022,12/31/2021,04/21/2020 Pneumococcal Conj 20-valent (Prevnar 20) 02/28/2023 RSV, Bivalent Vaccine Recons tituted (Abrysvo 120MCG/0.5mL) [...] Answer Date Recorded PHQ-2 TOTAL SCORE 0 08/06/2024 Social Connections Answer Date Recorded Do you often feel lonely or isolated from those around you? 0 08/06/2024 Financial Resource Strain Answer Date R ecorded Difficulty of Paying Living Expenses 3 08/06/2024 Difficulty of Paying Living Expenses Not on file 08/06/2024 Food Insecurity Answer Date Recorded Do you worry your food will run out before you are able to buy more? 1 08/06/2024 Transportation Needs Answer Date Record ed Does lack of transportation keep you from medica l appointments? 1 08/06/2024 Does lack of transportation keep you from work, meetings or getting things that you need? 1 08/06/2024 Housing Stability Answer Date Recorded What is your housing situation today? 1 08/06/2024 Interpersonal Safety Answer Date Record ed Are you being hit, kicked, p ushed or yelled at (see row info)? No 07/08/2023 Interpersonal Safety Abuse 12 - 18 Not on file 07/08/2023 Interpersonal Safety Ambulatory Vulnerability No t on file 07/08/2023 Utilities Answer Date Recorded Do you have trouble paying f or utilities (for example, heat, electricity, water, phone)? 1 08/06/2024 Comments No Sex and Gender Information Value Date Recorded Sex Assigned at Not on file Legal Sex Female 4:50 PM [employer] Gender Identity Not on file Sexual Orientation Not on file Obstetrics History Last Filed Vital Signs Vital Sign Reading Time Taken Comments Blood Pressure 107/74 08/06/2024 9:14 AM CDT Pulse 69 08/06/2024 9:14 AM CDT Temperature 36.8 C (98.2 F) 01/02/2024 11:25 AM [employer] Respiratory Rate 18 08/16/2023 10:2 3 AM CDT Oxygen Saturation 98% 08/06/2024 9:14 AM CDT Inhaled Oxygen Concentration - - Weight 104.9 kg (231 lb 3.2 oz) 08/06/2024 9:14 AM CDT Height 171.2 cm (5' 7.4) 08/06/2024 9:14 AM CDT Body Mass Index 35.78 08/06/2024 9:14 AM CDT Plan of Treatment Upcoming Encounters Date Type Department Care Team (Late st Contact Info) Description 06/16/2025 9:10 AM CDT Office Visit [facility] [address] [phone] Charisse Cabrera MD [address] [phone] Health Maintenance Due Date Last Done Comments COVID-19 vaccine series ( season) 2024 08/06/2024, 05/07/2024, 11/07/2023, Additional history exists Colonoscopy through age 75 10/26/202410/26 (Completed outside of [facility]) Influenza Vaccine (#1) 2024 4, 12/25/2022, 12/31/2021, Additional history exists Mammogram for age 45-75 11/03/2024 11/04/19 24, 06/18/2022, 08/10/2020 (Completed outside of [facility]) BMI (ht and wt on same day) for age 18+ 08/06/2025 08/06/2024, 12/31/2023, 08/16/2023, Additional history exists Depression screening for age 12+ 08/06/2025 08/06/2024, 06/17/2023, 06/17/2023 Pap test for age 21-65 05/22/2026 05/22/2021, 2021 Lipids for age 45-75 08/06/2029 08/06/2024, 05/28/2022, 05/22/2021 Tetanus booster 08/15/2032 08/15/2022, 09/02/2013 Hepatitis C screening for age 18-79 Completed 05/22/2021 Pneumococcal series for age 50+ Completed 02/28/2023 RSV vaccine for adults or Completed 11/07/2023 Zoster (shingles) series for age 50+ Completed 05/07/2024, 06/17/2023 HIV for age 15-65 Completed 08/06/2024 Hepatitis B series for 19+ Aged Out N o longer eligible based on patient's age to complete this topic Procedures Procedure Name Priority Date/Time Associated Diagnosis Comments BASIC METABOLIC PANEL Routine 08/06/2024 10:41 AM CDT Hypokalemia LIPID PANEL W REFLEX MEASURED LDL Routine 08/06/2024 10:41 AM CDT Lipid screening ANTI HIV 1/2 Routine 08/06/2024 10:41 AM CDT Screening for HIV (human immunodeficiency virus) KIDNEY STONE URINE/SATURATION Routine 07/07/2024 10:07 AM CDT Nephrolithiasis US PELVIS COMPLETE TA AND TV Routine 06/17/2024 4:25 PM CDT Bloating SCAN-CT INTERPRETATION 06/04/2024 12:00 AM CDT SCAN-RADIOLOGY REPORT 06/04/2024 12:00 AM CDT XR MAMMO GHAZALA BILAT SCREEN Routine 11/04/2023 4:48 PM CDT Visit for screening mammogram ANTI HCV Routine 05/22/2021 2:25 PM CDT Need for hepatitis C screening test HPV HIGH RISK Routine 05/22/2021 2:02 PM CDT Screening for cervical cancer from Last 3 Months or Most Recently Relevant to Health Maintenance Results * (ABNORMAL) LIPID PANEL W REFLEX MEASURED LDL (08/06/2024 10:41 AM CDT) CHOLESTEROL, TOTAL 179 <200 mg/dL [facility] HDL CHOLESTEROL 47(L) > OR = 50 mg/dL [facility] TRIGLYCERIDES 157(H) <150 mg/dL [facility] LDL-CHOLESTEROL 105(H) mg/dL (calc) [facility] Comment: Reference range: <100 Desirable range <100 mg/dL for primary prevention; <70 mg/dL for patients with CHD or diabetic patients with > or = 2 CHD risk factors. LDL-C is now calculated using the Michelle calculation, which is a validated novel method providing better accuracy than the Friedewald equation in the estimation of LDL-C. Fercho SS et al. RHONDA. 2013;310(19): 1498-6688 (http://education.Pressgram/faq/IOR482) CHOL/HDLC RATIO 3.8 <5.0 (calc) [facility] NON HDL CHOLESTEROL 132(H) <130 mg/dL (calc) [facility] Comment: For patients with diabetes plus 1 major ASCVD risk factor, treating to a non-HDL-C goal of <100 mg/dL (LDL-C of <70 mg/dL) is considered a therapeutic option. Blood BLOOD SPECIMEN / Unknown 08/06/2024 10:41 AM CDT 08/06/2024 10:42 AM CDT us Lavern Beavers MD CHEMISTRY Final Resul t [facility] [address] [place] [address], [place] [phone] [facility] [address] [place] [address] * ANTI HIV 1/2 [79154.0] (08/06/2024 10:41 AM CDT) HIV AG/AB, 4TH GEN NON-REACT EVELYN NON-REACT EVELYN [facility] Comment: HIV-1 antigen and HIV-1/HIV-2 antibodies were not detected. There is no laboratory evidence of HIV infection. PLEASE NOTE: This information has been disclosed to you from records whose confidentiality may be protected by state law. If your state requires such protection, then the state law prohibits you from making any further disclosure of the information without the specific written consent of the person to whom it pertains, or as otherwise permitted by law. A general authorization for the release of medical or other information is NOT sufficient for this purpose. For additional information please refer to http://education.Medlumics/faq/IFD058 (This link is being provided for informational/ educational purposes only.) The performance of this assay has not been clinically validated in patients less than 2 years old. Blood BLOOD SPECIMEN / Unknown 08/06/2024 10:41 AM CDT 08/06/2024 10:42 AM CDT us Lavern Beavers MD SEND OUTS Final Resul t [facility] [address] [place] [address], [facility] [address] [place] [address] * (ABNORMAL) BASIC METABOLIC PANEL (08/06/2024 10:41 AM CDT) Pathologist [facility] GLUCOSE 82 65 - 99 mg/dL [facility] Comment: Fasting reference interval UREA NITROGEN (BUN) 14 7 - 25 mg/dL [facility] CREATININE 0.98 0.50 - 1.05 mg/dL [facility] EGFR 66 > OR = 60 mL/min/1. 73m2 [facility] BUN/CREATININE RATIO SEE NOTE: 6 - 22 (calc) [facility] Comment: Not Reported: BUN and Creatinine are within reference range. SODIUM 142 135 - 146 mmol/L [facility] POTASSIUM 4.0 3.5 - 5.3 mmol/L [facility] CHLORIDE 106 98 - 110 mmol/L [facility] CARBON DIOXIDE 31 20 - 32 mmol/L [facility] ELECTROLYTE BALANCE 5(L) 7 - 17 mmol/L (calc) [facility] CALCIUM 9.5 8.6 - 10.4 mg/dL [facility] Blood BLOOD SPECIMEN / Unknown 08/06/2024 10:41 AM CDT 08/06/2024 10:42 AM CDT us Lavern Beavers MD CHEMISTRY Final Resul t [facility] [address] [place] [address], [facility] [address] * (ABNORMAL) KIDNEY STONE URINE/SATURATION (07/07/2024 10:07 AM CDT) Resulted: 07/10/2024 2:18 PM CDT [facility] [employer] Comment:This is a corrected result. Previously reported as See Separate Report with reference range <null> on 07/10/2024 at 9:32 AM CDT CALCIUM OXALATE CRYSTAL 1.56 Reference Mean= 1.59 DG 07/10/2024 2:18 PM CDT [employer] Comment:PDF Report available at: [email or web address] BRUSHITE CRYSTAL -1.34 DG 07/11/19 25 2:18 PM CDT [employer] Comment: -- REFERENCE VALUE -- Reference Mean= -0.11 HYDROXYAPATITE CRYSTAL 1.44 Reference Mean= 3.62 DG 07/10/2024 2:18 PM CDT [facility] URIC ACID CRYSTAL 2.95 Reference Mean= 0.89 DG 07/10/2024 2:18 PM CDT [facility] [email or web address] COLLECTION DURATION 24 h 07/10/2024 2:18 PM CDT [facility] VOLUME 1750 mL 07/10/2024 2:18 PM CDT [facility] INTERPRETATION SEE COMMENTS 07/10/2024 2:18 PM T [facility] Comment: The DG is related to supersaturation. DG is negative for undersaturated solutions, zero for solutions at the solubility product, and positive for saturated solutions. Any value greater than the Reference Mean is considered a risk for the respective crystal type formation. In general, a higher calculated SS means the risk for forming that type of stone is increased. A positive DG value indicates that the urine is supersaturated for that crystal type. SSINT is the reportable component of the orderable test code, SUP24. A full copy of the interpretative report is available as a PDF appended to this cover sheet and is ready to review. SODIUM, 24 HR, U 133 22 - 328 mmol/24 h 07/10/2024 2:18 PM CDT [facility] POTASSIUM, 24 HR, U 39 16 - 105 mmol/24 h 07/10/2024 2:18 PM T [facility] CALCIUM, 24 HR, U 193 <200 mg/24 h 07/10/2024 2:18 PM T [facility] MAGNESIUM, 24 HR, U 70 51 - 269 mg/24 h 07/10/2024 2:18 PM T [facility] CHLORIDE, 24 HR, U 126 34 - 286 mmol/24 h 07/10/2024 2:18 PM T [facility] PHOSPHORUS, 24 HR, U 893 226 - 1797 mg/24 h 07/10/2024 2:18 PM T [facility] SULFATE, 24 HR, U 9 7 - 47 mmol/24 h 07/10/2024 2:18 PM CDT [facility] Comment: This test was developed and its performance characteristics determined by [facility] in a manner consistent with CLIA requirements. This test has not been cleared or approved by the U.S. Food and Drug Administration. CITRATE EXCRETION, 24 HR, U 789 mg/24 h 07/10/2024 2:18 PM CDT [facility] Comment: -- REFERENCE VALUE -- Reference values have not been established for patients who are >60 years of age. This test was developed and its performance characteristics determined by [facility] in a manner consistent with CLIA requirements. This test has not been cleared or approved by the U.S. Food and Drug Administration. OXALATE, 24 HR, U (MMOL/24 HR) 0.21 0.11 - 0.46 mmol/24 h 07/10/2024 2:18 PM [facility] Comment: This test was developed and its performance characteristics determined by [facility] in a manner consistent with CLIA requirements. This test has not been cleared or approved by the U.S. Food and Drug Administration. OXALATE, 24 HR, U (MG/24 HR) 18.5 9.7 - 40.5 mg/24 h 07/10/2024 2:18 PM [facility] PH, 24 HR, U 5.4 4.5 - 8.0 07/10/2024 2:18 PM [facility] URIC ACID, 24 HR, U 525 250 - 750 mg/24 h 07/10/2024 2:18 PM [facility] CREATININE, 24 HR, U 1260 603 - 1783 mg/24 h 07/10/2024 2:18 PM [facility] OSMOLALITY, 24 HR, U 351 150 - 1150 mOsm/kg 07/10/2024 2:18 PM [facility] AMMONIUM, 24 HR, U 30 15 - 56 mmol/24 h 07/10/2024 2:18 PM [facility] Comment: This test has been modified from the paint mixer's instructions. Its performance characteristics were determined by [facility] in a manner consistent with CLIA requirements. This test has not been cleared or approved by the U.S. Food and Drug Administration. UREA NITROGEN, 24 HR, U 6.7(L) 7.0 - 42.0 g/24 h 07/10/2024 2:18 PM [facility] PROTEIN CATABOLIC RATE, 24 HR, U 67 56 - 125 g/24 h 07/10/2024 2:18 PM [facility] PATIENT SURFACE AREA SEE COMMENTS 1.73m(2) 07/10/2024 2:18 PM [facility] Comment:RESULT: Adult values are not corrected for body surface area. HEIGHT (CM) SEE COMMENTS cm 07/10/2024 2:18 PM [facility] Comment:RESULT: Not Required for Adults WEIGHT (KG) SEE COMMENTS kg 07/10/2024 2:18 PM [facility] Comment: RESULT: Not Required for Adults Test Performed by: [facility] [address] [place] [address] Developmental Psychologist: Marvin Gomez Ph.D.; CLIA# [id number] Urine URINE SPECIMEN / Unknown Non-Blood / Unknown 07/07/2024 10:07 AM CDT 07/07/2024 10:07 AM CDT Narrative [facility] - 07/10/2024 2:18 PM CDT See Separate Report us Jeff Morales MD URINE Edited Result - Final [facility] [address] [place] [address], [place] [phone] * US PELVIS COMPLETE TA AND TV (06/17/2024 4:25 PM CDT) Anatomical Region Laterality Modality Pelvis Ultrasound 06/18/2024 4:03 PM CDT Impressions 06/18/2024 4:03 PM CDT No uterine fibroid or excess pelvic free fluid. No adnexal mass. Dictated by Ashwin Webster MD @ 06/18/2024 4:03:03 PM (Electronically Signed) Narrative 06/18/2024 4:03 PM CDT For Patients: As a result of the Century Cures Act, medical imaging exams and procedure reports are released immediately into your electronic medical record. You may view this report before your referring provider. If you have questions, please contact your health care provider. INDICATION: Bloating COMPARISON: none TECHNIQUE: 2D ponce scale and color Doppler images were acquired of the pelvis using a transabdominal and transvaginal approach. FINDINGS: Sonographic images demonstrate a normal size and smooth outer contour of the uterus. Uterus measures 6.9 cm in length by 3.2 cm in AP diameter by 2.4 cm in transverse dimension. The myometrium has a normal uniform echotexture. The endometrial lining appears normal and measures 1.6 mm in composite thickness. The right ovary measures 1.3 x 1.1 x 1.0 cm in size and the left ovary is not visualized. The right ovary demonstrates normal arterial and venous blood flow on color Doppler analysis. There are no suspicious fluid collections within the cul-de-sac. Procedure Note Ashwin Webster MD - 06/18/2024 For Patients: As a result of the Century Cures Act, medical imagingexams and procedure reports are released immediately into your electronicmedical record. You may view this report before your referring provider.If you have questions, please contact your health care provider. INDICATION: Bloating COMPARISON: none TECHNIQUE: 2D ponce scale and color Doppler images were acquired of the pelvis using atransabdominal and transvaginal approach. FINDINGS: Sonographic images demonstrate a normal size and smooth outer contour ofthe uterus. Uterus measures 6.9 cm in length by 3.2 cm in AP diameter by2.4 cm in transverse dimension. The myometrium has a normal uniformechotexture. The endometrial lining appears normal and measures 1.6 mm incomposite thickness. The right ovary measures 1.3 x 1.1 x 1.0 cm in size and the left ovary isnot visualized. The right ovary demonstrates normal arterial and venousblood flow on color Doppler analysis. There are no suspicious fluidcollections within the cul-de-sac. IMPRESSION: No uterine fibroid or excess pelvic free fluid. No adnexal mass. Dictated by Ashwin Webster MD @ 06/18/2024 4:03:03 PM (Electronically Signed) us Lavern Beavers MD US Final Resul t * SCAN-RADIOLOGY REPORT (06/04/2024 12:00 AM CDT) Anatomical Region Laterality Modality Other us Scanner OTHER Final Result * SCAN-CT INTERPRETATION (06/04/2024 12:00 AM CDT) Anatomical Region Laterality Modality Other us Scanner OTHER Final Result * XR MAMMO GHAZALA BILAT SCREEN (11/04/2023 [...] care provider. XR MAMMO GHAZALA BILAT SCREEN [[id number]] CLINICAL HISTORY: This is an asymptomatic 58 y.o. patient. INDICATION FOR EXAM: Mammogram Screening. TECHNIQUE: CC & MLO views were obtained. This study was evaluated with the assistance of Computer-Aided Detection. Breast Tomosynthesis was used in interpretation. COMPARISON FILM: Yes 06/18/22 [facility] FINDINGS: The breasts are heterogeneously dense, which may obscure small masses. There are no dominant masses, suspicious micro calcifications or areas of architectural distortion. Lavern Beavers MD MAMMO Final Resul t * ANTI HCV (05/22/2021 2:25 PM CDT) Pathologist [facility] HEPATITIS C ANTIBODY Non-React evelyn Non-React evelyn 05/22/2021 11:58 PM CDT [facility] Comment:Antibodies to HCV no t detected; does not exclude the possibility of exposure to HCV. Blood BLOOD SPECIMEN / Unknown Venipuncture / Unknown 05/22/2021 2:25 PM CDT 05/22/2021 2:28 PM CDT Gayathri GREENE SEND OUTS Final R esult [facility] [address] [place] [address], * HPV HIGH RISK (05/22/2021 2:02 PM CDT) TYPE 16 Negative Negative 05/24/2021 5:38 PM CDT [facility] TYPE 18 Negative Negative 05/24/2021 5:38 PM CDT [facility] OTHER HIGH RISK TYPES Negative Negative 05/24/2021 5:38 PM CDT [facility] Other (Cervical) Non-Blood / Unknown 05/22/2021 2:02 PM CDT 05/23/2021 8:32 AM CDT Narrative [facility] - 05/24/2021 5:38 PM CDT HPV types 16, 18, 31, 33, 35, 39, 45, 51, 52, 56, 58, 59, 66 and 68 DNA were undetectable or below the pre-set threshold. Methodology: Coleen Abel 4800 HPV Test us Gayathri GREENE MICROBIOLOGY Final R esult [facility] [address] [place] [address], [place] from Last 3 Months or Most Recently Relevant to Health Maintenance Insurance 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 07/19/2023 Healthcare Directive 02/20/2022 invalid , missing page 02/20/2022 * Full Code (Latest Code Status on File) Date Activated Date Inactivated Comments 06/29/2023 10:12 PM 07/09/2023 6:12 PM Question Answer Comments Code Status Discussion: Reviewed Preferences * Full Code Date Activated Date Inactivated Comments 02/21/2022 11:30 AM 02/22/2022 12:12 PM Question Answer Comments Code Status Discussion: Reviewed Preferences Care Teams Back Tender Fourdrinier Relationship Specialty Start Date End Date Lavern Beavers MD [address] [place] [address] PCP - General Family Practice 06/17/23 Jeff Morales MD [address] [place] [address] Surgery - Urology 02/03/24
== END 2024-08-31 13:05 | disposition left against medical advice (07) ==
PROVIDERS: Emergency Provider Emergency Medicine; PCP Family Medicine
DX: Z53.21 Procedure and treatment not carried out due to patient leaving prior to being seen by health care provider (principal)